=== PATIENT | female | born 1945 | race Caucasian/White ===

== ENCOUNTER 2022-10-30 05:32 | Outpatient (REF) | payer MEDICARE, MEDICAID, SELFPAY ==
[2022-10-30 10:02] LABS: Basophils Absolute Auto 0.1 10^3/uL (0.0-0.1); Basophils Percent Auto 0.5 % (0.2-2.0); Eosinophils Absolute Auto 0.3 10^3/uL (0.0-0.7); Eosinophils Percent Auto 2.7 % (0.9-7.0); Hematocrit 37.1 % (36.0-48.0); Hemoglobin 10.9 g/dL (12.0-16.0); Immature Granulocytes Abs Auto 0.08 10^3/uL (0.00-0.03); Immature Granulocytes Pct Auto 0.8 % (0.0-0.5); Lymphocytes Absolute Auto 1.8 10^3/uL (1.2-3.8); Lymphocytes Percent Auto 17.6 % (20.5-60.0); Mean Corpuscular HGB Conc 29.4 g/dL (29.9-35.2); Mean Corpuscular Hemoglobin 28.2 pg (26.7-34.0); Mean Corpuscular Volume 95.9 fL (81.0-99.0); Mean Platelet Volume 9.5 fL (9.5-13.5); Monocytes Absolute Auto 0.8 10^3/uL (0.3-0.8); Monocytes Percent Auto 7.9 % (1.7-12.0); Neutrophils Absolute Auto 7.1 10^3/uL (1.4-6.5); Neutrophils Percent Auto 70.5 % (43.0-75.0); Platelet Count 492 10^3/uL (150-450); Red Blood Count 3.87 10^6/uL (4.20-5.40); Red Cell Distribution Width 15.4 % (11.0-15.0)
[2022-10-30 10:41] LABS: Erythrocyte Sedimentation Rate 93 mm/hr (<=30)
[2022-10-30 22:29] LABS: C Reactive Protein 4.2 mg/dL (<=1.0); Creatine Kinase 59 U/L (26-192); Estimated GFR (African America 49 (>=60); Estimated GFR (Non-African Ame 40 (>=60)
== END 2022-10-30 05:33 | disposition home or self-care (01) ==
LOC: LAB 05:32
PROVIDERS: PCP Internal Medicine; Visit Provider Internal Medicine
DX: M86.9 Osteomyelitis, unspecified (principal)
CPT/HCPCS: 36415; 82550; 82565; 84520; 85025; 85652; 86140

== ENCOUNTER 2022-11-01 20:18 | Outpatient (REF) | payer MEDICARE, MEDICAID, SELFPAY ==
[2022-11-01 21:19] LABS: Basophils Absolute Auto 0.1 10^3/uL (0.0-0.1); Basophils Percent Auto 0.3 % (0.2-2.0); Eosinophils Absolute Auto 0.1 10^3/uL (0.0-0.7); Eosinophils Percent Auto 0.7 % (0.9-7.0); Hematocrit 34.2 % (36.0-48.0); Hemoglobin 10.5 g/dL (12.0-16.0); Immature Granulocytes Abs Auto 0.32 10^3/uL (0.00-0.03); Immature Granulocytes Pct Auto 1.6 % (0.0-0.5); Lymphocytes Absolute Auto 0.6 10^3/uL (1.2-3.8); Lymphocytes Percent Auto 3.2 % (20.5-60.0); Mean Corpuscular HGB Conc 30.7 g/dL (29.9-35.2); Mean Corpuscular Hemoglobin 28.1 pg (26.7-34.0); Mean Corpuscular Volume 91.4 fL (81.0-99.0); Mean Platelet Volume 9.6 fL (9.5-13.5); Monocytes Absolute Auto 1.2 10^3/uL (0.3-0.8); Monocytes Percent Auto 5.9 % (1.7-12.0); Neutrophils Absolute Auto 17.7 10^3/uL (1.4-6.5); Neutrophils Percent Auto 88.3 % (43.0-75.0); Platelet Count 513 10^3/uL (150-450); Red Blood Count 3.74 10^6/uL (4.20-5.40); Red Cell Distribution Width 15.3 % (11.0-15.0); White Blood Count 20.1 10^3/uL (4.0-11.0)
[2022-11-01 21:29] LABS: Alanine Aminotransferase 19 U/L (14-59); Albumin Globulin Ratio 0.5; Albumin Level 2.4 g/dL (3.4-5.0); Alkaline Phosphatase 171 U/L (46-116); Anion Gap 13.3; Aspartate Amino Transferase 14 U/L (15-37); BUN Creatinine Ratio 10.7; Bilirubin Total 0.3 mg/dL (0.2-1.0); Calcium 8.8 mg/dL (8.5-10.1); Carbon Dioxide 25.1 mmol/L (21.0-32.0); Chloride 96 mmol/L (98-107); Estimated GFR (African America 38 (>=60); Estimated GFR (Non-African Ame 31 (>=60); Globulin 4.6 g/dL; Glucose 109 mg/dL (74-106); Potassium 4.4 mmol/L (3.5-5.1); Sodium 130 mmol/L (136-145)
== END 2022-11-01 20:19 ==
LOC: LAB 20:18
PROVIDERS: PCP Internal Medicine; Visit Provider Internal Medicine
DX: R41.0 Disorientation, unspecified (principal); Z91.81 History of falling
CPT/HCPCS: 36415; 80053; 85025

== ENCOUNTER 2022-11-02 10:26 | Emergency (ER) | payer MEDICARE, MEDICAID, SELFPAY ==
[2022-11-02] VITALS (23 sets, daily range): BP systolic 87–123; BP diastolic 64–82; PULSE 91–130; RESP 18–34; TEMP 36.6; O2SAT 78–100; BMI 25.7
--- NOTE | 2022-11-02 10:04 | ED_ITS ---
HPI - Altered Mental Status General Chief Complaint: Altered Mental Status Stated Complaint: ALTERED MENTAL STATUS Time Seen by Provider: 11/02/22 10:28 History of Present Illness HPI narrative: Brought in via EMS from the [facility] for mental status changes. State the patient is weak and more lethargic than normal. Patient has a history of left hip arthroplasty complicated by multiple infections and wound dehiscence. She was recently on daptomycin and meropenem followed by another 7 weeks of daptomycin. Patient had the PICC line and antibiotics via IV discontinued last month. The patient has been on amoxicillin since. Patient fell yesterday has not had any fever. She did not hit her head did not have loss of consciousness. However she had outpatient blood work which showed her white count to be 20 so she was sent for evaluation. Patient has an appointment scheduled with or so this to have the wound VAC removed. Patient does not have any complaints and states that they're just being overreactive and that is what they sent her here she herself has not seen any ectopy in the emergency department. Patient does not have any focal complaints. She denies any fever, chills. She denies any upper respiratory infection symptoms. She denies any cough, chest, shortness of breath. Denies any abdominal pain. She denies any nausea, vomiting, diarrhea. Related Data Home Medications Medication Instructions Recorded Confirmed Lactobacillus acidoph-L.bulgaricus 1 tab PO TID 11/02/22 11/02/22 1 million cell chewable tablet acetaminophen 500 mg tablet 500 mg PO Q6H PRN pain 11/02/22 11/02/22 albuterol sulfate 90 mcg/actuation 2 inh inhalation Q6H PRN shortness 11/02/22 11/02/22 aerosol inhaler of breath or wheezing amoxicillin 500 mg tablet 500 mg PO Q12H 11/02/22 11/02/22 bisacodyl 10 mg rectal suppository 10 mg OR DAILY PRN constipation 11/02/22 11/02/22 bupropion HCl 150 mg tablet,12 hr 150 mg PO Q12H 11/02/22 11/02/22 sustained-release cholecalciferol (vitamin D3) 50 50 mcg PO DAILY 11/02/22 11/02/22 mcg (2,000 unit) capsule docusate sodium 100 mg capsule 100 mg PO BID 11/02/22 11/02/22 (Colace) enoxaparin 30 mg/0.3 mL 30 mg subcut Q24H 11/02/22 11/02/22 subcutaneous syringe famotidine 20 mg tablet 20 mg PO DAILY 11/02/22 11/02/22 fluticasone propionate 50 2 spray intranasal DAILY 11/02/22 11/02/22 mcg/actuation nasal spray,suspension folic acid 1 mg tablet 1 mg PO DAILY 11/02/22 11/02/22 furosemide 20 mg tablet 20 mg PO DAILY 11/02/22 11/02/22 levothyroxine 75 mcg tablet 75 mcg PO DAILY 11/02/22 11/02/22 multivitamin 1 tab PO DAILY 11/02/22 11/02/22 nystatin 100,000 unit/gram topical 1 applic topical BID 11/02/22 11/02/22 powder ondansetron HCl 4 mg tablet 4 mg PO Q6H PRN nausea and vomiting 11/02/22 11/02/22 oxycodone 5 mg tablet 5 mg PO BID PRN pain 11/02/22 11/02/22 polyethylene glycol 3350 17 17 g PO .every 48 hours 11/02/22 11/02/22 gram/dose oral powder (Miralax) polysaccharide iron complex 150 mg 150 mg PO .every other day 11/02/22 11/02/22 iron capsule (Ferrex) potassium chloride 20 mEq 20 meq PO DAILY 11/02/22 11/02/22 tablet,extended release(part/cryst) prednisone 5 mg tablet 5 mg PO .every 48 hours 11/02/22 11/02/22 sodium chloride 0.65 % nasal spray 1 spray intranasal DAILY PRN nasal 11/02/22 11/02/22 aerosol congestion sodium phosphates 19 gram-7 118 ml OR DAILY PRN constipation 11/02/22 11/02/22 gram/118 mL enema (Fleet Enema) umeclidinium 62.5 mcg-vilanterol 1 inh inhalation DAILY 11/02/22 11/02/22 25 mcg/actuation powdr for inhalation (Anoro Ellipta) Allergies Allergy/AdvReac Type Severity Reaction Status Date / Time No Known Drug Allergies Allergy Verified 11/02/22 10:02 Review of Systems ROS Status of ROS 10 or more systems reviewed and unremarkable except as noted in history and below [facility] Medical History (Updated 11/02/22 @ 15:31 by Mary Darnell MD) Surgical History (Updated 11/02/22 @ 10:29 by Nieves Trotter) Social History Smoking status: Former smoker Exam Narrative Exam Narrative: Nurses notes and vital signs reviewed and patient is not hypoxic. 2L nc General: Nontoxic, Elderly, frail, chronically ill and in no apparent distress. Skin: Warm, dry, no pallor noted. No Rash Head: Normocephalic, atraumatic. Neck: Supple, non-tender. Eye: Pupils are equal, round and EOMI. No scleral icterus. Ears, Nose, Mouth, and Throat: TM clear, no posterior oropharynx erythema or nasal mucosal hypertrophy, uvula is mid-line Oral mucosa is moist Cardiovascular: Regular Rate and Rhythm without murmur, gallop or rub. Respiratory: No accessory muscle use or respiratory distress. Lungs Bilateral occasional rhonchi Chest Wall: no tenderness Back: No midline thoracic or lumbar vertebral tenderness. No CVA tenderness Musculoskeletal: Left hip with wound VAC in place with yellow drainage, minimal focal erythema noted, no tenderness. no calf or popliteal tenderness, no lower extremity edema/swelling GI: Abdomen is soft, non-distended. Normal bowel sounds. No masses appreciated. No tenderness to palpation. No rebound, guarding, or rigidity noted. Neurological: A&O x4. No cranial nerve dysfunction observed. No truncal ataxia. Moves all extremities. Psychiatric: Cooperative and interactive. Constitutional Vital Signs - 24 hr 11/02/22 10:03 11/02/22 10:30 11/02/22 10:30 Temperature 98 F Pulse Rate Pulse Rate [Monitor] 98 H Respiratory Rate 24 Blood Pressure Blood Pressure [Left Arm] 105/65 Pulse Oximetry 95 Oxygen Delivery Method Nasal Cannula Nasal Cannula Nasal Cannula Oxygen Delivery Flow Rate 2 2 2 11/02/22 10:01 11/02/22 10:05 11/02/22 10:05 Temperature Pulse Rate 114 H 96 H Pulse Rate [Monitor] Respiratory Rate 24 24 Blood Pressure 105/65 Blood Pressure [Left Arm] Pulse Oximetry 95 96 Oxygen Delivery Method Oxygen Delivery Flow Rate 11/02/22 10:54 11/02/22 11:00 11/02/22 11:30 Temperature Pulse Rate 126 H 120 H 114 H Pulse Rate [Monitor] Respiratory Rate 25 H 25 H 27 H Blood Pressure 102/73 104/68 101/70 Blood Pressure [Left Arm] Pulse Oximetry 98 92 L Oxygen Delivery Method Oxygen Delivery Flow Rate 11/02/22 12:01 11/02/22 12:10 11/02/22 12:20 Temperature Pulse Rate 112 H 122 H 129 H Pulse Rate [Monitor] Respiratory Rate 25 H 26 H 24 Blood Pressure Blood Pressure [Left Arm] Pulse Oximetry 96 93 L 94 L Oxygen Delivery Method Oxygen Delivery Flow Rate 11/02/22 12:29 11/02/22 12:30 11/02/22 13:02 Temperature Pulse Rate 113 H 130 H 117 H Pulse Rate [Monitor] Respiratory Rate 26 H 26 H 18 Blood Pressure 109/66 Blood Pressure [Left Arm] Pulse Oximetry 95 Oxygen Delivery Method Oxygen Delivery Flow Rate 11/02/22 13:07 11/02/22 13:08 11/02/22 16:02 Temperature Pulse Rate 109 H 118 H Pulse Rate [Monitor] Respiratory Rate 26 H 26 H Blood Pressure 113/68 Blood Pressure [Left Arm] Pulse Oximetry 78 L 97 94 L Oxygen Delivery Method Room Air Oxygen Delivery Flow Rate 11/02/22 13:30 11/02/22 14:00 11/02/22 14:30 Temperature Pulse Rate 116 H 116 H 91 H Pulse Rate [Monitor] Respiratory Rate 24 34 H 22 Blood Pressure 108/65 90/72 123/71 H Blood Pressure [Left Arm] Pulse Oximetry 100 100 100 Oxygen Delivery Method Oxygen Delivery Flow Rate 11/02/22 15:00 11/02/22 15:30 11/02/22 16:00 Temperature Pulse Rate 115 H 119 H 105 H Pulse Rate [Monitor] Respiratory Rate 24 27 H 28 H Blood Pressure 87/64 L 113/73 118/78 Blood Pressure [Left Arm] Pulse Oximetry 100 95 94 L Oxygen Delivery Method Oxygen Delivery Flow Rate 11/02/22 16:00 11/02/22 16:00 11/02/22 16:30 Temperature Pulse Rate 116 H 111 H Pulse Rate [Monitor] Respiratory Rate 27 H 25 H Blood Pressure 118/78 99/69 Blood Pressure [Left Arm] Pulse Oximetry 89 L 97 99 Oxygen Delivery Method Nasal Cannula Oxygen Delivery Flow Rate 2 11/02/22 16:30 11/02/22 17:00 Temperature Pulse Rate 91 H 115 H Pulse Rate [Monitor] Respiratory Rate 28 H 24 Blood Pressure 99/69 103/82 H Blood Pressure [Left Arm] Pulse Oximetry 99 99 Oxygen Delivery Method Oxygen Delivery Flow Rate Course Vital Signs Vital signs: Vital Signs Pulse Oximetry 95 11/02/22 10:01 Temperature 98 F 11/02/22 10:03 Pulse Rate 115 H 11/02/22 17:00 Respiratory Rate 24 11/02/22 17:00 Blood Pressure 103/82 H 11/02/22 17:00 Pulse Oximetry 99 11/02/22 17:00 Oxygen Delivery Method Room Air 11/02/22 16:02 Oxygen Delivery Flow Rate 2 11/02/22 16:00 MDM - Altered Mental Status MDM Narrative Medical decision making narrative: Patient had an IV established, labs were ordered and the patient had a CT scan of her brain which is unremarkable, chest x-ray unremarkable, left hip CT scans showed a gluteal abscess, left hip osteomyelitis. The patient was started on vancomycin and Zosyn. Records from [facility] where reviewed. The patient was discussed with july who has accepted the patient to the service of Dr. brown. Differential Diagnosis Differential diagnosis: Likely altered mental status and sepsis Medical Records Attestation: I reviewed the patient's medical records. Lab Data Attestation: I reviewed the patient's lab results. Labs: Lab Results 11/02/22 11/02/22 Range/Units 10:33 13:10 WBC 23.0 H (4.0-11.0) 10^3/uL RBC 3.68 L (4.20-5.40) 10^6/uL Hgb 10.2 L (12.0-16.0) g/dL Hct 33.5 L (36.0-48.0) % MCV 91.0 (81.0-99.0) fL MCH 27.7 (26.7-34.0) pg MCHC 30.4 (29.9-35.2) g/dL RDW 15.4 H (11.0-15.0) % Plt Count 410 (150-450) 10^3/uL MPV 9.5 (9.5-13.5) fL Neut % (Auto) 91.9 H (43.0-75.0) % Lymph % (Auto) 1.4 L (20.5-60.0) % [place] % (Auto) 5.3 (1.7-12.0) % Eos % (Auto) 0.2 L (0.9-7.0) % Baso % (Auto) 0.3 (0.2-2.0) % Neut # (Auto) 21.1 H (1.4-6.5) 10^3/uL Lymph # (Auto) 0.3 L (1.2-3.8) 10^3/uL [place] # (Auto) 1.2 H (0.3-0.8) 10^3/uL Eos # (Auto) 0.0 (0.0-0.7) 10^3/uL Baso # (Auto) 0.1 (0.0-0.1) 10^3/uL Abs Immat Gran (auto) 0.21 H (0.00-0.03) 10^3/uL Imm/Tot Granulo (auto) 0.9 H (0.0-0.5) % Sodium 134 L (136-145) mmol/L Potassium 5.0 (3.5-5.1) mmol/L Chloride 100 (98-107) mmol/L Carbon Dioxide 22.9 (21.0-32.0) mmol/L Anion Gap 16.1 BUN 20.0 H (7.0-18.0) mg/dL Creatinine 1.64 H (0.55-1.02) mg/dL Est GFR ( Amer) 37 L (>=60) Est GFR (Non-Af Amer) 30 L (>=60) BUN/Creatinine Ratio 12.2 Glucose 92 (74-106) mg/dL Lactate 1.0 (0.4-2.0) mmol/L Calcium 8.6 (8.5-10.1) mg/dL Total Bilirubin 0.4 (0.2-1.0) mg/dL AST 15 (15-37) U/L ALT 17 (14-59) U/L Alkaline Phosphatase 168 H (46-116) U/L Troponin I High Sens 12.6 (4.0-51.3) pg/mL Total Protein 6.4 (6.4-8.2) g/dL Albumin 2.1 L (3.4-5.0) g/dL Globulin 4.3 g/dL Albumin/Globulin Ratio 0.5 TSH 2.036 (0.358-3.740) uIU/mL Urine Color Lt. yellow (YELLOW) Urine Clarity Clear (CLEAR) Urine pH 5.5 (5.0-9.0) Ur Specific [place] 1.020 (1.005-1.025) Urine Protein Negative (NEG/TRACE) mg/dL Urine Glucose (UA) Negative (NEGATIVE) mg/dL Urine Ketones Trace A (NEGATIVE) mg/dL Urine Occult Blood Negative (NEGATIVE) Urine Nitrite Negative (NEGATIVE) Urine Bilirubin Negative (NEGATIVE) Urine Urobilinogen 0.2 (0.2-1.0) EU/dL Ur Leukocyte Esterase Negative (NEGATIVE) ECG Data Attestation: I personally reviewed and interpreted this ECG as follows: Critical Care Time Critical Care Time Attestation: Critical Care Time: 35 minutes, critical care time is separate from any procedures that are performed. The following was considered in the determination of critical care but not limited to the level medical decision-making, intensive cardiac and/or respiratory monitor, frequent vital sign monitoring, evaluation of laboratory studies, evaluation of a radiographic studies, oxygen monitoring and constant monitoring. Discharge Plan Discharge Chief Complaint: Altered Mental Status Clinical Impression: Hip osteomyelitis, left, Abscess of hip, left Patient Disposition: [facility] Time of Disposition Decision: 15:29 Discharge Location: The [facility] Discharge location: Dr. Brown Condition: Good Mode of Transportation: EMS
--- NOTE | 2022-11-02 10:10 | CT_ITS ---
The [address] [address] Patient Name: CIELO SAHA MRN: [id number] date: 1945 Sex: F Assigned Patient Location: ER Current Patient Location: .[facility] Accession/Order Number: [id number] Exam Date: 11/02/2022 11:09 Report Date: 11/02/2022 11:34 At the request of: ANITHA MURILLO Procedure: CT head/brain wo con EXAMINATION: CT head/brain wo con HISTORY: fall, confusion - TECHNIQUE: CT head without contrast. All CT scans at this facility use dose modulation, iterative reconstruction, and/or weight based dosing when appropriate to reduce radiation dose to as low as reasonably achievable. COMPARISON: None. RESULT: Post-operative change: None. Acute change: No evidence of an acute intracranial process. Hemorrhage: No evidence of acute intracranial hemorrhage. Mass Lesion / Mass Effect: No evidence of an intracranial mass or extraaxial fluid collection. No significant mass effect. Chronic change: Patchy foci of low attenuation coefficient are present within the supratentorial white matter which is a nonspecific finding but likely represents moderate microvascular ischemia. Atherosclerotic calcification of the carotid siphons and vertebrobasilar arteries. Parenchyma: Moderate generalized volume loss. Ventricles: Normal caliber and morphology. Other: The calvarium, skull base, imaged paranasal sinuses, mastoids, and extracranial soft tissues are unremarkable. Bilateral lens replacements. Widened partially empty sella. IMPRESSION: 1. No acute intracranial abnormality; no acute infarct, intracranial hemorrhage or extra-axial collection. 2. Chronic microvascular ischemia and involutional changes. Electronically authenticated by: DALTON COOPER Date: 11/02/2022 11:34
--- NOTE | 2022-11-02 10:10 | ECG_ITS ---
The [facility] Test Date: 2022-11-02 Pat Name: Jessica Gonzalez Department: Room: - Gender: Female Applications Programmer: : 1945 Requested By: STUART ZAMORA Order Number: [id number] Reading MD: JACOB VAIL Measurements Intervals [place] Rate: 97 P: 13 HI: 176 QRS: 53 QRSD: 80 T: 3 QT: 336 QTc: 391 Interpretive Statements 1100 Sinus rhythm 1470 with occasional supraventricular premature complexes Non-Specific T wave inversion in III 9140 abnormal rhythm ECG No previous ECG available for comparison Electronically Signed On 11-04-2022 6:21:02 EDT by JACOB VAIL
--- NOTE | 2022-11-02 10:10 | XR_ITS ---
The [address] [address] Patient Name: CIELO SAHA MRN: [id number] date: 1945 Sex: F Assigned Patient Location: ER Current Patient Location: ER Accession/Order Number: [id number] Exam Date: 11/02/2022 11:09 Report Date: 11/02/2022 11:43 At the request of: ANITHA MURILLO Procedure: XR chest 1V EXAM: XR chest 1V HISTORY: weakness COMPARISON: 09/04/2021 TECHNIQUE: Chest X-ray, 1 view. FINDINGS: Support devices: None. Lungs/pleura: No consolidation, effusion, or pneumothorax. Chronic appearing lung markings are unchanged. Emphysema. Heart and mediastinum: Stable contours compared to prior examination. Bones: No acute abnormality identified. Significant degenerative changes about the shoulders. Left glenoid fixation hardware. IMPRESSION: No active disease. Mild prominence of lung markings is favored represent chronic change in patient with emphysema. Electronically authenticated by: YAMILE RAMOS Date: 11/02/2022 11:43
--- NOTE | 2022-11-02 10:26 | CT_ITS ---
The [place] [id number] Patient Name: CIELO SAHA MRN: [id number] date: 1945 Sex: F Assigned Patient Location: ER Current Patient Location: ER Accession/Order Number: [id number] Exam Date: 11/02/2022 11:09 Report Date: 11/02/2022 14:11 At the request of: ANITHA MURILLO Procedure: CT hip LT wo con EXAM: CT hip LT wo con COMPARISON: 06/06/2021. CLINICAL INDICATION: infection, sp arthroiplasty, leukocytosis TECHNIQUE: Multiplanar CT images of the left hip without contrast. Dose reduction techniques were achieved by using automated exposure control and/or adjustment of mA and/or kV according to patient size and/or use of iterative reconstruction technique. FINDINGS: Status post interval removal of the left hip arthroplasty hardware seen on prior from 06/06/2021 presumably due to infected hardware. Postsurgical change of the left proximal femur with postsurgical resection of the left femoral head. Prominent deep lateral hip soft tissue ulcer. Large gas and fluid containing ill-defined subcutaneous and intramuscular abscess in the left gluteal-hip soft tissues communicating with a large left hip joint effusion in a patient with severe septic arthritis, and with communication between the skin surface and the left hip joint. Acute osteomyelitis of the left acetabulum and adjacent left iliac bone and acute osteomyelitis of the left proximal femur with bony destructive change and prominent aggressive infectious related periosteal reaction. IMPRESSION: As above. Electronically authenticated by: PETE FLORES Date: 11/02/2022 14:11
--- NOTE | 2022-11-02 10:48 | PC.NURSE ---
10cc to [employer] systems laboratory director for 2nd blood culture
[2022-11-02] MEDS: 0.9 % SODIUM CHLORIDE 1,000 ML 100 ML IV (10:54)
[2022-11-02 11:24] LABS: Basophils Absolute Auto 0.1 10^3/uL (0.0-0.1); Basophils Percent Auto 0.3 % (0.2-2.0); Eosinophils Percent Auto 0.2 % (0.9-7.0); Hematocrit 33.5 % (36.0-48.0); Hemoglobin 10.2 g/dL (12.0-16.0); Immature Granulocytes Abs Auto 0.21 10^3/uL (0.00-0.03); Immature Granulocytes Pct Auto 0.9 % (0.0-0.5); Lymphocytes Absolute Auto 0.3 10^3/uL (1.2-3.8); Lymphocytes Percent Auto 1.4 % (20.5-60.0); Mean Corpuscular HGB Conc 30.4 g/dL (29.9-35.2); Mean Corpuscular Hemoglobin 27.7 pg (26.7-34.0); Mean Platelet Volume 9.5 fL (9.5-13.5); Monocytes Absolute Auto 1.2 10^3/uL (0.3-0.8); Monocytes Percent Auto 5.3 % (1.7-12.0); Neutrophils Absolute Auto 21.1 10^3/uL (1.4-6.5); Neutrophils Percent Auto 91.9 % (43.0-75.0); Platelet Count 410 10^3/uL (150-450); Red Blood Count 3.68 10^6/uL (4.20-5.40); Red Cell Distribution Width 15.4 % (11.0-15.0)
[2022-11-02 11:41] LABS: Alanine Aminotransferase 17 U/L (14-59); Albumin Globulin Ratio 0.5; Albumin Level 2.1 g/dL (3.4-5.0); Alkaline Phosphatase 168 U/L (46-116); Anion Gap 16.1; Aspartate Amino Transferase 15 U/L (15-37); BUN Creatinine Ratio 12.2; Bilirubin Total 0.4 mg/dL (0.2-1.0); Calcium 8.6 mg/dL (8.5-10.1); Carbon Dioxide 22.9 mmol/L (21.0-32.0); Chloride 100 mmol/L (98-107); Estimated GFR (African America 37 (>=60); Estimated GFR (Non-African Ame 30 (>=60); Globulin 4.3 g/dL; Glucose 92 mg/dL (74-106); Sodium 134 mmol/L (136-145); Thyroid Stimulating Hormone 2.036 uIU/mL (0.358-3.740); Total Protein 6.4 g/dL (6.4-8.2)
[2022-11-02 11:58] LABS: Troponin I High Sensitivity 12.6 pg/mL (4.0-51.3)
--- NOTE | 2022-11-02 13:19 | PC.NURSE ---
1255 Up to BSC with much assistance after labia cleaned per this nurse. Much assistance is needed. Water ran to help her void.
--- NOTE | 2022-11-02 13:20 | PC.NURSE ---
1310 Dark color urine is in hat and sent to lab. Max assistance to get her back in bed. FOB elevated and pillow under left heel area.
[2022-11-02 13:24] LABS: Bilirubin Urine NEGATIVE (NEGATIVE); Blood Urine NEGATIVE (NEGATIVE); Clarity Urine CLEAR (CLEAR); Color Urine LT. YELLOW (YELLOW); Glucose Urine UA NEGATIVE (NEGATIVE); Ketones Urine TRACE mg/dL (NEGATIVE); Leukocyte Esterase Urine NEGATIVE (NEGATIVE); Nitrite Urine NEGATIVE (NEGATIVE); Protein Urine NEGATIVE (NEG/TRACE); Urobilinogen Urine 0.2 EU/dL (0.2-1.0); pH Urine 5.5 (5.0-9.0)
[2022-11-02] MEDS: PIPERACILLIN SODIUM/TAZOBACTAM 4.5 GM in 0.9 % SODIUM CHLORIDE 50 ML IV (15:23)
[2022-11-02] MEDS: VANCOMYCIN HCL 1,500 MG in 0.9 % SODIUM CHLORIDE 500 ML 250 MG IV (15:58)
--- NOTE | 2022-11-02 16:00 | PC.NURSE ---
Her brother Juan Francisco is not in waiting room. He is called no answer or VM. She request for me to call Madyson and update her of plan to transfer. She is too upset and crying to talk to her she is holding her blanket up to her face and o2 is off. Sensor is on her toe and reading higher than finger.
--- NOTE | 2022-11-02 16:03 | PC.NURSE ---
upset and crying
--- NOTE | 2022-11-02 16:04 | PC.NURSE ---
saline is put on hold to run vancomycin
== END 2022-11-02 18:58 | disposition short-term general hospital (02) ==
PROVIDERS: Emergency Provider Emergency Medicine; PCP Internal Medicine
DX: M86.9 Osteomyelitis, unspecified (principal); L02.416 Cutaneous abscess of left lower limb; Z96.642 Presence of left artificial hip joint; Z79.899 Other long term (current) drug therapy; Z79.890 Hormone replacement therapy; Z87.891 Personal history of nicotine dependence
CPT/HCPCS: 36415; 70450; 71045; 73700; 80053; 81003; 83605; 84443; 84484; 85025; 87040; 93005; 96374; 96375; 99285; J3370

== ENCOUNTER 2022-11-13 10:38 | Outpatient (REF) | payer MEDICARE, MEDICAID, SELFPAY ==
[2022-11-13 11:42] LABS: Basophils Absolute Auto 0.1 10^3/uL (0.0-0.1); Basophils Percent Auto 0.6 % (0.2-2.0); Eosinophils Absolute Auto 0.5 10^3/uL (0.0-0.7); Eosinophils Percent Auto 4.4 % (0.9-7.0); Hematocrit 29.2 % (36.0-48.0); Hemoglobin 9.1 g/dL (12.0-16.0); Immature Granulocytes Abs Auto 0.42 10^3/uL (0.00-0.03); Immature Granulocytes Pct Auto 4.1 % (0.0-0.5); Lymphocytes Absolute Auto 2.1 10^3/uL (1.2-3.8); Lymphocytes Percent Auto 20.8 % (20.5-60.0); Mean Corpuscular HGB Conc 31.2 g/dL (29.9-35.2); Mean Corpuscular Hemoglobin 28.5 pg (26.7-34.0); Mean Corpuscular Volume 91.5 fL (81.0-99.0); Mean Platelet Volume 9.4 fL (9.5-13.5); Monocytes Absolute Auto 0.7 10^3/uL (0.3-0.8); Monocytes Percent Auto 6.6 % (1.7-12.0); Neutrophils Absolute Auto 6.5 10^3/uL (1.4-6.5); Neutrophils Percent Auto 63.5 % (43.0-75.0); Platelet Count 638 10^3/uL (150-450); Red Blood Count 3.19 10^6/uL (4.20-5.40); Red Cell Distribution Width 16.7 % (11.0-15.0); White Blood Count 10.2 10^3/uL (4.0-11.0)
[2022-11-13 11:54] LABS: Erythrocyte Sedimentation Rate 38 mm/hr (<=30)
[2022-11-13 12:12] LABS: Anion Gap 12.2; BUN Creatinine Ratio 11.5; C Reactive Protein 0.5 mg/dL (<=1.0); Calcium 8.2 mg/dL (8.5-10.1); Carbon Dioxide 26.6 mmol/L (21.0-32.0); Chloride 104 mmol/L (98-107); Creatine Kinase 22 U/L (26-192); Estimated GFR (African America 48 (>=60); Estimated GFR (Non-African Ame 39 (>=60); Glucose 104 mg/dL (74-106); Magnesium 1.9 mg/dL (1.8-2.4); Potassium 4.8 mmol/L (3.5-5.1); Sodium 138 mmol/L (136-145)
== END 2022-11-13 10:39 ==
LOC: LAB 10:38
PROVIDERS: PCP Internal Medicine; Visit Provider Internal Medicine
DX: M86.9 Osteomyelitis, unspecified (principal)
CPT/HCPCS: 36415; 80048; 82550; 83735; 85025; 85652; 86140

== ENCOUNTER 2022-11-20 02:21 | Outpatient (REF) | payer MEDICARE, MEDICAID, SELFPAY ==
[2022-11-20 08:00] LABS: C Reactive Protein <0.2 mg/dL (<=1.0); Creatine Kinase 23 U/L (26-192); Estimated GFR (African America 52 (>=60); Estimated GFR (Non-African Ame 43 (>=60)
[2022-11-20 08:17] LABS: Basophils Absolute Auto 0.1 10^3/uL (0.0-0.1); Basophils Percent Auto 0.9 % (0.2-2.0); Eosinophils Absolute Auto 0.1 10^3/uL (0.0-0.7); Eosinophils Percent Auto 0.7 % (0.9-7.0); Hematocrit 28.8 % (36.0-48.0); Hemoglobin 8.6 g/dL (12.0-16.0); Immature Granulocytes Abs Auto 0.05 10^3/uL (0.00-0.03); Immature Granulocytes Pct Auto 0.6 % (0.0-0.5); Lymphocytes Absolute Auto 1.2 10^3/uL (1.2-3.8); Lymphocytes Percent Auto 13.5 % (20.5-60.0); Mean Corpuscular HGB Conc 29.9 g/dL (29.9-35.2); Mean Corpuscular Hemoglobin 28.2 pg (26.7-34.0); Mean Corpuscular Volume 94.4 fL (81.0-99.0); Mean Platelet Volume 9.1 fL (9.5-13.5); Monocytes Absolute Auto 0.4 10^3/uL (0.3-0.8); Monocytes Percent Auto 4.8 % (1.7-12.0); Neutrophils Percent Auto 79.5 % (43.0-75.0); Platelet Count 506 10^3/uL (150-450); Red Blood Count 3.05 10^6/uL (4.20-5.40); Red Cell Distribution Width 17.7 % (11.0-15.0); White Blood Count 8.8 10^3/uL (4.0-11.0)
== END 2022-11-20 02:22 | disposition home or self-care (01) ==
LOC: LAB 02:21
PROVIDERS: PCP Internal Medicine; Visit Provider Internal Medicine
DX: M62.81 Muscle weakness (generalized) (principal)
CPT/HCPCS: 36415; 82550; 82565; 84520; 85025; 86140

== ENCOUNTER 2022-11-27 01:49 | Outpatient (REF) | payer MEDICARE, MEDICAID, SELFPAY ==
[2022-11-27 08:22] LABS: Erythrocyte Sedimentation Rate 59 mm/hr (<=30)
[2022-11-27 09:36] LABS: C Reactive Protein 1.1 mg/dL (<=1.0)
== END 2022-11-27 01:50 | disposition home or self-care (01) ==
LOC: LAB 01:49
PROVIDERS: PCP Internal Medicine; Visit Provider Internal Medicine
DX: M86.9 Osteomyelitis, unspecified (principal)
CPT/HCPCS: 36415; 85652; 86140

== ENCOUNTER 2022-12-04 01:39 | Outpatient (REF) | payer MEDICARE, MEDICAID, SELFPAY ==
[2022-12-04 09:14] LABS: Erythrocyte Sedimentation Rate 77 mm/hr (<=30)
[2022-12-04 10:02] LABS: C Reactive Protein 1.6 mg/dL (<=1.0)
== END 2022-12-04 01:40 | disposition home or self-care (01) ==
LOC: LAB 01:39
PROVIDERS: PCP Internal Medicine; Visit Provider Internal Medicine
DX: M86.9 Osteomyelitis, unspecified (principal)
CPT/HCPCS: 36415; 85652; 86140

== ENCOUNTER 2022-12-11 01:43 | Outpatient (REF) | payer MEDICARE, MEDICAID, SELFPAY ==
[2022-12-11 08:19] LABS: Erythrocyte Sedimentation Rate 74 mm/hr (<=30)
[2022-12-11 09:54] LABS: C Reactive Protein 1.2 mg/dL (<=1.0)
== END 2022-12-11 01:44 | disposition home or self-care (01) ==
LOC: LAB 01:43
PROVIDERS: PCP Internal Medicine; Visit Provider Internal Medicine
DX: M86.9 Osteomyelitis, unspecified (principal)
CPT/HCPCS: 36415; 85652; 86140

== ENCOUNTER 2022-12-20 02:10 | Outpatient (REF) | payer MEDICARE, MEDICAID, SELFPAY ==
[2022-12-20 08:06] LABS: Erythrocyte Sedimentation Rate 72 mm/hr (<=30)
[2022-12-20 08:24] LABS: C Reactive Protein 0.6 mg/dL (<=1.0)
== END 2022-12-20 02:11 | disposition home or self-care (01) ==
LOC: LAB 02:10
PROVIDERS: PCP Internal Medicine; Visit Provider Internal Medicine
DX: M86.9 Osteomyelitis, unspecified (principal)
CPT/HCPCS: 36415; 85652; 86140

== ENCOUNTER 2023-02-14 01:29 | Outpatient (REF) | payer MEDICARE, MEDICAID, SELFPAY ==
[2023-02-14 09:29] LABS: Erythrocyte Sedimentation Rate 43 mm/hr (<=30)
[2023-02-14 09:33] LABS: C Reactive Protein <0.2 mg/dL (<=1.0)
== END 2023-02-14 01:30 | disposition home or self-care (01) ==
LOC: LAB 01:29
PROVIDERS: PCP Internal Medicine; Visit Provider Internal Medicine
DX: M86.9 Osteomyelitis, unspecified (principal)
CPT/HCPCS: 36415; 85652; 86140

== ENCOUNTER 2023-03-26 03:48 | Outpatient (REF) | payer MEDICARE, MEDICAID, SELFPAY ==
[2023-03-26 08:00] LABS: Erythrocyte Sedimentation Rate 7 mm/hr (<=30)
[2023-03-26 08:32] LABS: C Reactive Protein <0.2 mg/dL (<=1.0)
== END 2023-03-26 03:49 | disposition home or self-care (01) ==
LOC: LAB 03:48
PROVIDERS: PCP Internal Medicine; Visit Provider Internal Medicine
DX: M86.9 Osteomyelitis, unspecified (principal)
CPT/HCPCS: 36415; 85652; 86140

== ENCOUNTER 2023-03-28 10:21 | Outpatient (REF) | payer MEDICARE, MEDICAID, SELFPAY ==
[2023-03-28 12:33] LABS: Basophils Percent Auto 0.6 % (0.2-2.0); Eosinophils Absolute Auto 0.3 10^3/uL (0.0-0.7); Eosinophils Percent Auto 4.8 % (0.9-7.0); Hematocrit 32.9 % (36.0-48.0); Immature Granulocytes Abs Auto 0.02 10^3/uL (0.00-0.03); Immature Granulocytes Pct Auto 0.3 % (0.0-0.5); Lymphocytes Absolute Auto 1.6 10^3/uL (1.2-3.8); Lymphocytes Percent Auto 24.1 % (20.5-60.0); Mean Corpuscular HGB Conc 30.4 g/dL (29.9-35.2); Mean Corpuscular Hemoglobin 29.5 pg (26.7-34.0); Mean Corpuscular Volume 97.1 fL (81.0-99.0); Mean Platelet Volume 9.4 fL (9.5-13.5); Monocytes Absolute Auto 0.6 10^3/uL (0.3-0.8); Neutrophils Absolute Auto 3.9 10^3/uL (1.4-6.5); Neutrophils Percent Auto 60.2 % (43.0-75.0); Platelet Count 306 10^3/uL (150-450); Red Blood Count 3.39 10^6/uL (4.20-5.40); Red Cell Distribution Width 15.9 % (11.0-15.0); White Blood Count 6.4 10^3/uL (4.0-11.0)
[2023-03-28 12:38] LABS: Erythrocyte Sedimentation Rate 33 mm/hr (<=30)
[2023-03-28 12:52] LABS: Alanine Aminotransferase 21 U/L (14-59); Albumin Globulin Ratio 0.8; Albumin Level 2.6 g/dL (3.4-5.0); Alkaline Phosphatase 157 U/L (46-116); Aspartate Amino Transferase 21 U/L (15-37); Bilirubin Direct <0.1 mg/dL (0.0-0.2); Bilirubin Total 0.2 mg/dL (0.2-1.0); Estimated GFR (African America 43 (>=60); Estimated GFR (Non-African Ame 35 (>=60); Globulin 3.2 g/dL; Total Protein 5.8 g/dL (6.4-8.2)
== END 2023-03-28 10:22 | disposition home or self-care (01) ==
LOC: LAB 10:21
PROVIDERS: PCP Internal Medicine; Visit Provider Family Medicine
DX: Z51.81 Encounter for therapeutic drug level monitoring (principal)
CPT/HCPCS: 36415; 80076; 82565; 85025; 85652; 99999

== ENCOUNTER 2023-04-02 04:15 | Outpatient (REF) | payer MEDICARE, MEDICAID, SELFPAY | END 2023-04-02 04:16 | disposition home or self-care (01) | LOC: LAB 04:15 | PROVIDERS: PCP Internal Medicine; Visit Provider Internal Medicine | DX: Z51.81 Encounter for therapeutic drug level monitoring (principal); Z79.899 Other long term (current) drug therapy | CPT/HCPCS: 36415; 80204; 99999 ==

== ENCOUNTER 2023-05-23 12:19 | Emergency (ER) | payer MEDICARE, MEDICAID, SELFPAY ==
[2023-05-23 12:22] VITALS: BP 129/62; PULSE 82; RESP 18; TEMP 36.5; O2SAT 96; BMI 26.1
--- OUTSIDE RECORDS SUMMARY | 2023-05-23 12:31 | XMS_ITS | CCD ---
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 Name Role Phone Amir, Hasan Unavailable Unavailable STUART ZAMORA~[id number] UNKNOWN Unavailable Unavailable Amir, Hasan Unavailable Unavailable LABBAD, JAKLEEN Unavailable Unavailable Amir, Hasan Unavailable Unavailable Amir, Hasan Unavailable Unavailable Amir, Hasan Unavailable Unavailable Amir, Hasan Unavailable Unavailable Amir, Hasan Unavailable Unavailable Amir, Hasan Unavailable Unavailable Amir, Hasan Unavailable Unavailable Amir, Hasan Unavailable Unavailable Shine, Ryan Unavailable Unavailable Shine, Ryan Unavailable Unavailable Shine, Ryan Unavailable Unavailable Shine, Ryan Unavailable Unavailable Shine, Ryan Unavailable Unavailable Shine, Ryan Unavailable Unavailable Shine, Ryan Unavailable Unavailable Shine, Ryan Unavailable Unavailable Shine, Ryan Unavailable Unavailable Shine, Ryan Unavailable Unavailable Shine, Ryan Unavailable Unavailable Shine, Ryan Unavailable Unavailable Shine, Ryan Unavailable Unavailable STUART ZAMORA~[id number] UNKNOWN Unavailable Unavailable Lakeisha, Justine Unavailable Unavailable Lakeisha, Justine Unavailable Unavailable Lakeisha, Justine Unavailable Unavailable Lakeisha, Justine Unavailable Unavailable Lakeisha, Justine Unavailable Unavailable Lakeisha, Justine Unavailable Unavailable Lakeisha, Justine Unavailable Unavailable Lakeisha, Justine Unavailable Unavailable Lakeisha, Justine Unavailable Unavailable Lakeisha, Justine Unavailable Unavailable STUART ZAMORA~[id number] UNKNOWN Unavailable Unavailable Marion, Keerthi Unavailable Unavailable Marion, Keerthi Unavailable Unavailable Said, Farid Unavailable Unavailable Said, Farid Unavailable Unavailable STUATR ZAMORA~[id number] UNKNOWN Unavailable Unavailable Said, Farid Unavailable Unavailable Said, Farid Unavailable Unavailable STUART ZAMORA~[id number] UNKNOWN Unavailable Unavailable CHAMPAGNE, LENIN YASHIRA Unavailable Unavailab le Ball DO, Stuart E Primary Care Provider Ball DO, Stuart E Primary Care Provider BALL, STUART E Primary Care Unavailable BECCA CULVER Attending UnavailCHRIST Pulliam Admitting Unavailable WELLS, DL JACOB Referring Unavailable MARY GARCIA Consulting Unavailable [facility] Consulting JOSE Cisneros Consulting Unavailabl e WELLS, DL JACOB Attending Unavailable BALL, STUART E Referring Unavailable BALL, STUART E Primary Care Unavailable WELLS, LD JACOB Attending Unavailable BALL, STUART E Primary Care Unavailable WELLS, DL LANDLAS Attending Unavailable BALL, STUART E Primary Care Unavailable WELLS, DL JACOB Attending Unavailable BALL, STUART E Primary Care Unavailable WELLS, DL JACOB Attending Unavailable BALL, STUART E Primary Care Unavailable WELLS, DL JACOB Attending Unavailable BALL, STUART E Primary Care Unavailable WELLS, DL JAMES Attending Unavailable BALL, STUART E Primary Care Unavailable WELLS, DL JACOB Attending Unavailable BALL, STUART E Primary Care Unavailable Marion Brantley Unavailable Lotus Maloney Unavailable WILLIAM JULIAN Admitting Unavailable WILLIAM JULIAN Attending Unavailable BALL, STUART Referring Unavailable BALL, STUART Primary Care Unavailable BALL, STUART Referring Unavailable BALL, STUART Primary Care Unavailable UNKNOWN, PROVIDER Attending Unavailable UNKNOWN, PROVIDER Admitting Unavailable Kevin Varela Admitting Unavailable Kevin Varela Attending Unavailable BALL, STUART Referring Unavailable BALL, STUART Primary Care Unavailable BALL, STUART Primary Care Unavailable UNKNOWN, PROVIDER Referring Unavailable Kevin Varela Attending Unavailable Kevin Varela Admitting Unavailable [place] Admitting Unavailable [place] Attending Unavailable BALL, STUART Referring Unavailable BALL, STUART Primary Care Unavailable [place] Admitting Unavailable [place] Attending Unavailable BALL, STUART Referring Unavailable BALL, STUART Primary Care Unavailable BALL, STUART Primary Care Unavailable UNKNOWN, PROVIDER Referring Unavailable UNKNOWN, PROVIDER Admitting Unavailable Kana Brown Attending Unavailable Kevin Varela Admitting Unavailable Kevin Varela Attending Unavailable UNKNOWN, PROVIDER Referring Unavailable BALL, STUART Primary Care Unavailable WILLIAM JULIAN Admitting Unavailable WILLIAM JULIAN Attending Unavailable WILLIAM JULIAN Referring Unavailable BALL, STUART Primary Care Unavailable WILLIAM JULIAN Admitting Unavailable WILLIAM JULIAN Attending Unavailable BALL, STUART Referring Unavailable BALL, STUART Primary Care Unavailable Ball, Stuart Unavailable Sera, DO Davidosn Primary Care Provider MD Mekhi Boyer Attending Provider SERA, DR DAVIDSON Admitting Unavailable BALL, DR DAVIDSON Primary Care Unavailable BALL, DR DAVIDSON Attending Unavailable BALL, DR DAVIDSON Consulting Unavailable BALL, DR DAVIDSON Consulting Unavailable BALL, DR DAVIDSON Primary Care Unavailable BALL, DR DAVIDSON Admitting Unavailable BALL, DR DAVIDSON Attending Unavailable BALL, DR DAVIDSON Consulting Unavailable BALL, DR DAVIDSON Attending Unavailable BALL, DR DAVIDSON Primary Care Unavailable BALL, DR DAVIDSON Admitting Unavailable BALL, DR DAVIDSON Attending Unavailable BALL, DR DAVIDSON Admitting Unavailable BALL, DR DAVIDSON Primary Care Unavailable BALL, DR DAVIDSON Attending Unavailable BALL, DR DAVIDSON Admitting Unavailable BALL, DR DAVIDSON Consulting Unavailable BALL, DR DAVIDSON Primary Care Unavailable BALL, DR DAVIDSON Primary Care Unavailable BALL, DR DAVIDSON Admitting Unavailable BALL, DR DAVIDSON Attending Unavailable BALL, DR DAVIDSON Consulting Unavailable BALL, DR DAVIDSON Consulting Unavailable BALL, DR DAVIDSON Primary Care Unavailable BALL, DR DAVIDSON Admitting Unavailable BALL, DR DAVIDSON Attending Unavailable BALL, DR DAVIDSON Attending Unavailable BALL, DR DAVIDSON Admitting Unavailable BALL, DR DAVIDSON Consulting Unavailable BALL, DR DAVIDSON Primary Care Unavailable BALL, DR DAVIDSON Primary Care Unavailable BALL, DR DAVIDSON Attending Unavailable BALL, DR DAVIDSON Admitting Unavailable BALL, DR DAVIDSON Consulting Unavailable MISC, DR SHARP Admitting Unavailable MISC, DR SHARP Attending Unavailable MISC, DR SHARP Consulting Unavailable BALL, DR DAVIDSON Primary Care Unavailable BALL, DR DAVIDSON Consulting Unavailable BALL, DR DAVIDSON Attending Unavailable BALL, DR DAVIDSON Admitting Unavailable BALL, DR DAVIDSON Primary Care Unavailable BALL, DR DAVIDSON Consulting Unavailable BALL, DR DAVIDSON Attending Unavailable BALL, DR DAVIDSON Admitting Unavailable BALL, DR DAVIDSON Primary Care Unavailable BALL, DR DAVIDSON Admitting Unavailable BALL, DR DAVIDSON Primary Care Unavailable BALL, DR DAVIDSON Attending Unavailable BALL, DR DAVIDSON Consulting Unavailable BALL, DR DAVIDSON Admitting Unavailable BALL, DR DAVIDSON Primary Care Unavailable BALL, DR DAVIDSON Attending Unavailable BALL, DR DAVIDSON Consulting Unavailable BALL, DR DAVIDSON Admitting Unavailable BALL, DR DAVIDSON Primary Care Unavailable BALL, DR DAVIDSON Attending Unavailable BALL, DR DAVIDSON Consulting Unavailable BALL, DR DAVIDSON Admitting Unavailable BALL, DR DAVIDSON Primary Care Unavailable BALL, DR DAVIDSON Attending Unavailable BALL, DR DAVIDSON Consulting Unavailable BALL, DR DAVIDSON Primary Care Unavailable BALL, DR DAVIDSON Attending Unavailable BALL, DR DAVIDSON Admitting Unavailable BALL, DR DAVIDSON Consulting Unavailable BALL, DR DAVIDSON Consulting Unavailable BALL, DR DAVIDSON Attending Unavailable BALL, DR DAVIDSON Admitting Unavailable BALL, DR DAVIDSON Primary Care Unavailable BALL, DR DAVIDSON Primary Care Unavailable BALL, DR DAVIDSON Primary Care Unavailable BALL, DR DAVIDSON Attending Unavailable BALL, DR DAVIDSON Admitting Unavailable BALL, DR DAVIDSON Consulting Unavailable BALL, DR DAVIDSON Consulting Unavailable BALL, DR DAVIDSON Attending Unavailable BALL, DR DAVIDSON Admitting Unavailable BALL, DR DAVIDSON Primary Care Unavailable Sera, Stuart Primary Care Unavailable Haladay, Mekhi Admitting Unavailable Haladay, Mekhi Attending Unavailable Ball, Stuart Primary Care Unavailable Haladay, Mekhi Admitting Unavailable Haladay, Mekhi Attending Unavailable Ball, Stuart Primary Care Unavailable Haladay, Mekhi Admitting Unavailable Haladay, Mekhi Attending Unavailable ANDRE COLON Attending Unavailable IVAN NDIAYE Referring Unavailab KEVIN Fournier Referring Unavailable LY, DEVENDRA Admitting Unavailable RADHA MCINTOSH Attending Unavailable TAMMY DOSHI Attending Unavailable XAVIER HDEZ Attending Unavailable ANDRE COLON Attending Unavailable KEVIN VARELA Admitting Unavailable KEVIN VARELA Attending Unavailable WILLIAM JULIAN Attending Unavailable ANDRE COLON Attending Unavailable ANDRE COLON Attending Unavailable TAMMY DOSHI Referring Unavailable KEVIN VARELA Referring Unavailable TICO, TAMMY Referring Unavailable DAVON COE Attending Unavailable TICOTAMMY Attending Unavailable ELSXAVIER SCRUGGS Attending Unavailable TICO, TAMMY Referring Unavailable TICO, TAMMY Referring Unavailable NARDA BURNETTE Referring UnavailKEVIN Chopra Referring Unavailable TICO, TAMMY Referring Unavailable KEVIN VARELA Admitting Unavailable LYDVEENDRA CARDONA Attending Unavailable TICO, TAMMY Referring Unavailable ALITOÑO Attending Unavailable ALI LUNDBERG Admitting Unavailable Medications Current Medications Medication Drug Class(es) Dates Sig (Normalized) Sig (Original) Albuterol Sulfate 108 (90 Base) MCG/ACT (20 sources) take 1 puff(s) by inhalation every four hours as needed Albuterol Sulfate 108 (90 Base) MCG/ACT 1 puff as needed Inhalation every 4 hrs Active amoxicillin 500 mg / clavulanate 125 mg oral tablet (17 sources) Penicillin-class Antibacterial End: 12-20-2022 take 1 tablet by mouth every twelve hours Amoxicillin-Pot Clavulanate 500-125 MG 1 tablet Orally every 12 hrs Active apixaban 2.5 mg oral tablet (11 sources) Factor Xa Inhibitor Eliquis 2.5 MG as directed Orally Active atorvastatin 20 mg oral tablet (11 sources) HMG-CoA Reductase Inhibitor Start: 11-10-2020 End: 11-09-2021 take 1 tablet by mouth once daily atorvastatin (LIPITOR) 20 MG tablet Take 1 (one) tablet (20 mg total) by mouth nightly . 90 tablet 3 11/14/2020 11/09/2021 Active bacitracin 0.5 unt/mg / polymyxin b 10 unt/mg topical ointment (12 sources) Polymyxin-class Antibacterial Start: 11-27-2020 Start: 11-23-2020 End: 11-29-2020 bacitracin zinc-polymyxin B ointment Apply 1 application topically 2 (two) times a day . 1 Tube 0 11/27/2020 Active Budesonide / formoterol (11 sources) Corticosteroid, beta2-Adrenergic Agonist Start: 11-27-2020 take 2 puff(s) by inhalation twice daily budesonide-formoteroL (SYMBICORT) 160-4.5 mcg/actuation inhaler Inhale 2 (two) puffs 2 (two) times a day . 1 Inhaler 0 11/27/2020 Active Start: 11-27-2020 End: 12-27-2020 take 2 puff(s) by inhalation twice daily budesonide-formoteroL (SYMBICORT) 160-4.5 mcg/actuation inhaler Inhale 2 (two) puffs 2 (two) times a day . 1 Inhaler 0 11/27/2020 12/27/2020 Active Start: 11-27-2020 End: 12-27-2020 Start: 11-10-2020 End: 11-29-2020 take 2 puff(s) by inhalation twice daily 2 puff, Inhalation, 2 times daily (RT), First dose on Fri11/10/20 at 2000 SPACER REQUIRED FOR ADMINISTRATION calcium carbonate 500 mg chewable tablet (5 sources) Start: 11-21-2020 End: 12-27-2020 calcium carbonate (TUMS) 200 mg calcium (500 mg) chewable tablet Chew and Swallow 1 (one) tablet (500 mg total) daily as needed . 1 tablet 0 11/27/2020 12/27/2020 Active ciprofloxacin 500 mg oral tablet (5 sources) Quinolone Antimicrobial Start: 11-27-2020 End: 12-18-2020 take 1 tablet by mouth twice daily ciprofloxacin HCl (CIPRO) 500 MG tablet Take 1 (one) tablet (500 mg total) by mouth 2 (two) times a day for 21 days . 42 tablet 0 11/27/2020 12/18/2020 Active Start: 02-09-2020 End: 03-08-2020 take 500 mg by mouth twice daily Ciprofloxacin Hcl Discontinued 500 MG PO Twice daily February 09, 2020 12:00am March 08, 2020 1:37pm clopidogrel 75 mg oral tablet (13 sources) P2Y12 Platelet Inhibitor Start: 11-13-2020 End: 11-09-2021 take 1 tablet by mouth once daily clopidogreL (PLAVIX) 75 mg tablet Take 1 (one) tablet (75 mg total) by mouth daily . 90 tablet 3 11/14/2020 11/09/2021 Active docusate sodium 100 mg oral capsule (20 sources) take 1 capsule by mouth every twenty-four hours Docusate Sodium 100 MG 1 capsule as needed Orally Once a day OTC Active docusate sodium 50 mg / sennosides, mcfp 8.6 mg oral tablet (5 sources) Start: 11-27-2020 End: 12-27-2020 Start: 11-13-2020 End: 12-27-2020 take 1 tablet by mouth twice daily senna-docusate (SENNA-S) 8.6-50 mg Take 1 (one) tablet by mouth 2 (two) times a day . 60 tablet 0 11/27/2020 12/27/2020 Active famotidine 20 mg oral tablet (20 sources) Histamine-2 Receptor Antagonist Start: 11-21-2020 End: 12-27-2020 take 1 tablet by mouth once daily famotidine (PEPCID) 20 MG tablet Take 1 (one) tablet (20 mg total) by mouth nightly . 30 tablet 0 11/27/2020 Active fluticasone propionate 0.05 mg/actuat metered dose nasal spray (20 sources) Corticosteroid take 1 spray(s) nasal route once daily Fluticasone Propionate 50 MCG/ACT 1 spray in each nostril Nasally Once a day Active take 1 spray(s) nasal route once daily Fluticasone Propionate 50 MCG/ACT 1 spray in each nostril Nasally Once a day Active 12 hr guaiFENesin 600 mg extended release oral tablet (5 sources) Start: 11-27-2020 End: 12-27-2020 take 1 tablet by mouth once guaiFENesin (MUCINEX) 600 mg 12 hr tablet Take 1 (one) tablet (600 mg total) by mouth every 12 (twelve) hours . 60 tablet 0 11/27/2020 12/27/2020 Active Start: 11-14-2020 End: 12-27-2020 take 600 mg by mouth every twelve hours hydrocortisone 25 mg/ml topi yong cream (20 sources) Corticosteroid Hydrocortisone 2 .5 % 1 application Externally Once a day Active Hydrocortisone 2 .5 % 1 application Externally Once a day Active inulin 200 mg / lactobacillus rhamnosus gg [id number] unt oral capsule (14 sources) Culturelle - as directed Orally OTC Active Lactinex (14 sources) Lactinex Active levothyroxine sodium 0.075 mg oral tablet (20 sources) l-Thyroxine Start: 03-12-2017 take 1 tablet by mouth once daily Levothyroxine (Synthroid) 75 mcg Tablet Active 75 MCG PO Daily March 12, 2017 12:00am take 1 tablet by alison th once daily in the morning Levothyroxine Sodium 75 MCG 1 tablet in the morning on an empty stomach Orally Once a day Active take 1 tablet by alison th every twenty-four hours Levothyroxine Sodium 88 MCG 1 tablet Ora lly Once a day Active melatonin 5 mg oral tablet (11 sources) Start: 11-09-2020 End: 12-27-2020 take 1 tablet by mouth once daily as needed for sleep melatonin 5 mg Tab Take 1 (one) tablet (5 mg total) by mouth nightly as needed (Sleep) . 1 tablet 0 11/27/2020 Active methotrexate 2.5 mg oral tablet (20 sources) Folate Analog Metabolic Inhibitor Start: 12-01-2020 End: 11-29-2020 take 10 mg by mouth every week 10 mg, Oral, Weekly, First dose (after last modification) on Fri12/01/20 at 0900 CATEGORY C HAZARDOUS DRUG use safe handling precautions. Use reference link to view PPE guidelines. Chemotherapy Agent (Refer to Policy Rx- 910.023). DO NOT CRUSH OR CHEW. Indication: Rheumatoid Arthritis Ordering restricted to Attending provider: I am an Attending provider Start: 02-09-2020 End: 05-31-2020 take 2.5 mg by mouth every week Methotrexate Sodium Di scontinued 2.5 MG PO every week February 09, 2020 12:00am May 31, 2020 2:22pm take 4 tablets by mo uth every week at bedtime Methotrexate Sodium 2.5 MG TAKE 4 TABLETS BY MOUTH AT BEDTIME EVERY WEEK ON THURSDAYS for 84 Active Methotrexate Not -Taking Methotrexate Act mildred midodrine hydrochloride 5 mg oral tablet (3 sources) alpha-Adrenergic Agonist take 1 tablet by mouth every twelve hours Midodrine HCl 5 MG 1 tablet Orally Twice a day Active MiraLax 17 GM/SCOOP (3 sources) MiraLax 17 GM/SC OOP as directed Orally Active Multivitamin preparation (14 sources) take 1 tablet by mouth once daily Multivitamin - 1 tablet Orally Once a day OTC Active take 1 tablet by mouth once aretha y Multivitamin - 1 tablet Orally Once a day Active naproxen sodium 220 mg oral tablet (20 sources) Nonsteroidal Anti-inflammatory Drug Start: 06-19-2020 take 1 tablet by mouth twice daily Naproxen Sodium (Aleve) 220 mg Tablet Active 220 MG PO Twice daily June 19, 2020 1:00am take 1 tablet by alison th every twelve hours at mealtime as needed Aleve 220 MG 1 tablet with food or milk as needed Orally every 12 hrs Not-Taking nystatin 100 unt/mg topical powder (20 sources) Polyene Antifungal Nystatin 1000 00 UNIT/GM 1 application Externally Twice a day Active ondansetron 4 mg oral tablet (20 sources) Serotonin-3 Receptor Antagonist take 1 tablet by mouth every twenty-four hours Ondansetron HCl 4 MG 1 tablet Orally Once a day Active take 1 tablet by alison th every twenty-four hours Ondansetron 4 MG 1 tablet on the tongue and allow to dissolve Orally Once a day Active oxyCODONE hydrochloride 5 mg oral tablet (20 sources) Opioid Agonist Start: 04-04-2023 take 1 tablet by mouth once daily as needed for pain oxyCODONE HCl 5 MG 1 tablet Orally qd as needed for pain for 30 days Mar, Active Start: 03-05-2023 take 1 tablet by alison th once daily as needed for pain oxyCODONE HCl 5 MG 1 tablet Orally qd as needed for pain for 30 days Feb, Active Start: 02-17-2023 take 1 tablet by alison th once daily as needed for pain oxyCODONE HCl 5 MG 1 tablet Orally qd as needed for pain Jan, Active Start: 01-14-2023 take 1 tablet by alison th twice daily as needed for pain oxyCODONE HCl 5 MG 1 tablet Orally bid as needed for pain Dec, Active Start: 11-28-2022 take 1 tablet by alison th twice daily as needed for pain oxyCODONE HCl 5 MG 1 tablet Orally bid as needed for pain Nov, Active Start: 11-10-2022 take 1 tablet by alison twice daily as needed for pain oxyCODONE HCl 5 MG 1 tablet Orally bid as needed for pain for 15 days Oct, Active Start: 10-14-2022 take 1 tablet by alison twice daily as needed for pain oxyCODONE HCl 5 MG 1 tablet Orally bid as needed for pain for 15 days September, Active Start: 09-24-2022 take 1 tablet by alison th every eight hours as needed for pain oxyCODONE HCl 5 MG 1 tablet Orally every 8 hours as needed for pain September, Active Start: 08-26-2022 take 1 tablet by alison th every six hours as needed for pain oxyCODONE HCl 5 MG 1 tablet Orally every 6 hours as needed for pain for 15 days Aug, Active Start: 08-02-2022 take 1 tablet by alison th three times daily as needed for pain oxyCODONE HCl 5 MG 1 tablet Orally tid as needed for pain for 30 days Jul, Active Start: 06-27-2022 take 1 tablet by alison th every six hours as needed for pain oxyCODONE HCl 5 MG 1 tablet Orally every 6 hours PRN pain Jun, Active penicillin v potassium 500 mg oral tablet (1 source) Start: 07-06-2021 End: 07-16-2021 take 1 tablet by mouth four times daily penicillin v potassium (VEETID) 500 MG tablet Indications: Open wound of right knee, initial encounter Take 1 (one) tablet (500 mg total) by mouth 4 (four) times a day for 10 days . 40 tablet 0 07/06/2021 07/16/2021 Active polyethylene glycol 3350 85077 mg powder for oral solution (14 sources) Osmotic Laxative MiraLax 17 GM/SCOOP 1 scoop mixed with 8 ounces of fluid Orally Once a day OTC Active Polysaccharide iron complex (17 sources) Niferex - as directed Orally OTC Active Niferex - as dir ected Orally Active potassium chloride 20 meq extended release oral tablet (20 sources) take 1 tablet by alison th every twenty-four hours Potassium Chloride ER 20 MEQ 1 tablet with food Orally Once a day for 90 days Active take 1 tablet by alison th every twenty-four hours Potassium Chloride Sujey ER 20 MEQ 1 tablet with food Orally Once a day Active Completed/Discontinued Medications Medication Drug Class(es) Dates Sig (Normalized) Sig (Original) acetaminophen 325 mg oral tablet (20 sources) Start: 11-09-2020 End: 11-29-2020 take 1 tablet by mouth every four hours as needed for headache 650 mg, Oral, Every 4 hours PRN, fever 100.4 F or greater, headaches, Starting on 11/13/20 at 2019 take 1 tablet by mouth every six hours Acetaminophen 500 MG 1 tablet as needed Orally every 6 hrs Active acetaminophen 325 mg / HYDRO codone bitartrate 5 mg oral tablet (5 sources) Opioid Agonist Start: 11-27-2020 End: 11-30-2020 Start: 11-13-2020 End: 11-30-2020 HYDROcodone-acetaminophen (N ORCO) 5-325 mg per tablet Indications: Open wound of right lower extremity, initial encounter Take 1 (one) tablet by mouth every 4 (four) hours as needed (Days supply per fill: 3) . 18 tablet 0 11/27/2020 11/30/2020 acetaminophen 325 mg / oxyCODONE hydrochloride 5 mg oral tablet (1 source) Opioid Agonist Start: 03-04-2017 End: 05-31-2020 take 1 tablet by mouth once daily Oxycodone-Acetaminophen Discontinued 1 TAB PO Daily March 04, 2017 12:00am May 31, 2020 2:22pm [id number] 200 actuat albuterol 0.09 mg/actuat metered dose inhaler (11 sources) beta2-Adrene rgic Agonist Start: 11-09-2020 End: 11-11-2020 take 2 puff(s) by inhalation every six hours as needed for wheezing 2 puff, Inhalation, Every 6 hours PRN, wheezing, Starting on Fri11/09/20 at 2344 SPACER REQUIRED FOR ADMINISTRATION albuterol 0.833 mg/ml / ipratropium bromide 0.167 mg/ml inhalation solution (20 sources) Anticholinergic, beta2-Adrenergic Agonist Start: 11-14-2020 End: 11-29-2020 take 3 mL by inhalation every two hours as needed for wheezing 3 mL, Inhalation, Every 2 hour PRN (RT), wheezing, shortness of breath, Starting on Fri11/14/20 at 0937 Start: 11-12-2020 End: 11-29-2020 take 3 mL by inhalation four times daily 3 mL, Inhalation, 4 times daily (RT), First dose (after last modification) on Fri11/12/20 at 1200 Start: 11-09-2020 End: 11-09-2020 take 3 mL by inhalation once 3 mL, Inhalation, Once, O n Fri11/09/20 at 1655, For 1 dose take 3 mL by inhalat ion every six hours as needed Ipratropium-Albuterol 0.5-2.5 (3) MG/3ML 3 mL as needed Inhalation every 6 hrs Active alendronic acid 70 mg oral tablet (1 source) Bisphosphonate Start: 02-09-2020 End: 06-19-2020 take 70 mg by mouth every week Alendronate Discontinued 70 MG PO every week February 09, 2020 12:00am June 19, 2020 11:04am ascorbic acid 500 mg oral tablet (11 sources) Vitamin C Start: 11-10-2020 End: 11-29-2020 take 500 mg by mouth once daily 500 mg, Oral, Daily, First dose on Fri11/10/20 at 0900 aspirin 81 mg delayed release oral tablet (1 source) Platelet Aggregation Inhibitor, Nonsteroidal Anti-inflammatory Drug Start: 11-10-2020 End: 11-13-2020 take 81 mg by mouth once daily 81 mg, Oral, Daily, First dose on Fri11/10/20 at 1045 DO NOT CRUSH OR CHEW. azithromycin 250 mg oral tablet (1 source) Macrolide Antimicrobial Start: 11-15-2020 End: 11-18-2020 take 250 mg by mouth once daily 250 mg, Oral, Daily, First dose (after last reorder) on Fri11/15/20 at 1445, For 4 doses Indication: COPD Exacerbation bisacodyl 10 mg rectal suppository (20 sources) Stimulant Laxative Start: 11-09-2020 End: 11-29-2020 take 10 mg rectal route once daily as needed for constipation 10 mg, Rectal, Daily PRN, constipation, Starting on Sara 11/09/20 at 2344 Try oral medications first for constipation.&nb sp; Try rectal medication if oral meds are ineffective, not tolerated, or not ordered. 12 hr buPROPion hydrochloride 150 mg extended release oral tablet (20 sources) Aminoketone Start: 11-10-2020 End: 11-29-2020 take 150 mg by mouth twice daily 150 mg, Oral, 2 times daily, First dose on Fri11/10/20 at 0030 DO NOT CRUSH OR CHEW. Start: 02-09-2020 End: 06-19-2020 take 150 mg by mouth twice daily Bupropion Hcl Discontinued 150 MG PO Twice daily February 09, 2020 12:00am June 19, 2020 11:04am take 1 tablet by alison every twenty-four hours buPROPion HCl ER (SR) 150 MG 1 tablet in the morning Orally Once a day Active calcium chloride 0.0014 meq/ml / potassium chloride 0.004 meq/ml / sodium chloride 0.103 meq/ml / sodium lactate 0.028 meq/ml injectable solution (2 sources) Start: 11-22-2020 End: 11-24-2020 take 25 mL intravenously every hour 25 mL/hr, Intravenous, Continuous, Starting on Fri11/22/20 at 1100 Start: 11-15-2020 End: 11-16-2020 take 25 mL intravenously every hour 25 mL/hr, Intravenous, Continuous, Starting on Fri11/15/20 at 1045, Pre-Procedure ceFAZolin 2000 mg injection (1 source) Cephalosporin Antibacterial Start: 11-12-2020 End: 11-12-2020 take 2000 mg intravenously every eight hours 2,000 mg, Intravenous, at 100 mL/hr, Every 8 hours, First dose on Fri11/12/20 at 0800 Indication: Community Acquired Cellulitis cefepime 2000 mg injection (1 source) Cephalosporin Antibacterial Start: 11-12-2020 End: 11-29-2020 take 2000 mg intravenously every twelve hours 2,000 mg, Intravenous, at 100 mL/hr, Every 12 hours, First dose on Fri11/12/20 at 1500 Indication: Other (specify) Indication: non-healing surgical wound with pseudomonas growing from culture cholecalciferol 0.025 mg oral tablet (20 sources) Vitamin D Start: 11-10-2020 End: 11-29-2020 take 1000 [IU] by mouth once daily 1,000 Units, Oral, Daily, First dose on Fri11/10/20 at 0900 take 1 tablet by mouth once aretha y Cholecalciferol 50 MCG (1999 UT) 1 tablet Orally Once a day OTC Active take 1 tablet by mouth once aretha y Cholecalciferol 50 MCG (1999 UT) 1 tablet Orally Once a day Active take 1 capsule by mouth once lukasz ly Cholecalciferol 50 MCG (1999 UT) 1 capsule Orally Once a day Active DAPTOmycin 500 mg injection (20 sources) Lipopeptide Antibacterial DAPTOmycin 500 MG as directed Intravenous Not-Taking diclofenac sodium 0.01 mg/mg topical gel (14 sources) Nonsteroidal Anti-inflammatory Drug Diclofenac Sodium 1 % as directed Externally Not-Taking/PRN doxycycline hyclate 100 mg oral capsule (20 sources) Tetracycline-class Drug Start: 0 End: take 100 mg by mouth once daily 100 mg, Oral, Daily, First dose on Fri11/10/20 at 0700 Take 1 hour before or 4 hours after metallic cations (e.g.antacids, aluminum,magnesium, calcium, ferrous sulfate) Indication: Skin & Soft Tissue Infection Doxycycline Hycl ate Not-Taking Doxycycline Hycl ate Active 0.3 ml enoxaparin sodium 100 mg/ml prefilled syringe (20 sources) Low Molecular Weight Heparin Start: 11-21-2020 End: 11-26-2020 inject 30 mg by subcutaneous injection once daily 30 mg, Subcutaneous, Daily, First dose (after last modification) on Fri11/21/20 at 2100 Administer in abdomen unless otherwise directed by prescriber. Notify physician if patient refuses. Indication: VTE Prophylaxis Start: 11-20-2020 End: 11-21-2020 inject 40 mg by subcutaneous injection once daily 40 mg, Subcutaneous, Daily, First dose on Fri11/20/20 at 2100 Administer in abdomen unless otherwise directed by prescriber. Notify physician if patient refuses. Indication: VTE Prophylaxis Start: 11-15-2020 End: 11-17-2020 inject 40 mg by subcutaneous injection once daily in the evening 40 mg, Subcutaneous, Every evening, First dose (after last modification) on Fri11/15/20 at 2100 Administer in abdomen unless otherwise directed by prescriber. Notify physician if patient refuses. Indication: VTE Prophylaxis Start: 11-12-2020 End: 11-14-2020 inject 40 mg by subcutaneous injection once daily 40 mg, Subcutaneous, Daily, First dose (after last modification) on Fri11/12/20 at 0900 Administer in abdomen unless otherwise directed by prescriber. Notify physician if patient refuses. Indication: VTE Prophylaxis Start: 11-10-2020 End: 11-11-2020 inject 30 mg by subcutaneous injection once daily 30 mg, Subcutaneous, Daily, First dose on Fri11/10/20 at 0900 Administer in abdomen unless otherwise directed by prescriber. Notify physician if patient refuses. Indication: VTE Prophylaxis folic acid 1 mg oral tablet (20 sources) Start: 11-10-2020 End: 11-29-2020 take 1 mg by mouth once daily 1 mg, Oral, Daily, First dose on Fri11/10/20 at 0900 120 actuat formoterol fumarate 0.0048 mg/actuat / glycopyrrolate 0.009 mg/actuat metered dose inhaler (11 sources) beta2-Adrenergi c Agonist Start: 02-09-2020 End: 06-19-2020 Glycopyrrolate-Form oterol (Bevespi Aerosphere) 9-4.8 mcg Hfa Aerosol Inhaler Discontinued 2 PUFF INHALATION Twice daily February 09, 2020 12:00am June 19, 2020 11:04am glycopyrrolate-f ormoteroL (Bevespi Aerosphere) 9-4.8 mcg HFAA Inhale 2 puffs 2 (two) times a day . 0 Active 4 ml furosemide 10 mg/ml injection (20 sources) Loop Diuretic Start: 11-16-2020 End: 11-16-2020 20 mg, Intravenous, Once, On Sara 11/16/20 at 0815, For 1 dose Start: 11-11-2020 End: 11-29-2020 take 20 mg by mouth once daily 20 mg, Oral, Daily, Fir st dose on 11/11/20 at 1530 Start: 03-04-2017 take 20 mg by mouth once daily Furosemide Active 20 MG PO Daily March 04, 2017 12:00am gabapentin 100 mg oral capsule (1 source) Anti-epileptic Agent Start: 02-09-2020 End: 06-19-2020 take 100 mg by mouth once daily Gabapentin Discontinued 100 MG PO Daily February 09, 2020 12:00am June 19, 2020 11:03am gentamicin 0.001 mg/mg topical ointment (1 source) Start: 03-22-2020 End: 05-31-2020 Gentamicin Discontinued 1 APPLIC TOPICAL .w/dressings 30 March 22, 2020 12:00am May 31, 2020 2:22pm follow wound care orders sodium hypochlorite 2.5 mg/ml topical solution (1 source) Start: 03-22-2020 End: 06-19-2020 Sodium Hypochlorite (Dakin's Solution) 0.25 % solution Discontinued 1 APPLIC TOPICAL .w/dressings 473 March 22, 2020 12:00am June 19, 2020 11:04am use as per wound orders Lactobacillus (20 sources) Lactobacillus - as directed Orally Not-Taking Lactobacillus - as directed Orally Active leflunomide 20 mg oral tablet (20 sources) Antirheumatic Agent Start: 11-29-2020 End: 11-29-2020 take 20 mg by mouth every other day 20 mg, Oral, Every other day, First dose (after last modification) on Fri11/29/20 at 1200 CATEGORY C HAZARDOUS DRUG use safe handling precautions. Use reference link to view PPE guidelines. Minimize crushing/splitting only to situations where clinically necessary. Start: 03-04-2017 take 20 mg by mouth once daily Leflunomide Active 20 MG PO Daily March 04, 2017 12:00am Normal saline (20 sources) Normal Saline Fl ush 0.9 % as directed Intravenous Not-Taking End: 12-21-2022 Saline Nasal [place] 0.65 % as directed Nasally Nov, Not-Taking Saline Nasal Spr ay 0.65 % as directed Nasally Active Normal Saline Fl ush 0.9 % as directed Intravenous Active predniSONE 20 mg oral tablet (20 sources) Start: 11-16-2020 End: 11-20-2020 take 40 mg by mouth once daily at breakfast 40 mg, Oral, Daily with breakfast, First dose on Fri11/16/20 at 0800, For 5 days Start: 03-04-2017 End: 06-19-2020 take 5 mg by mouth once daily Prednisone Discontinued 5 MG PO Daily March 04, 2017 12:00am June 19, 2020 11:04am rivaroxaban 20 mg oral tablet (20 sources) Factor Xa Inhibitor Start: 11-26-2020 End: 11-29-2020 20 mg, Oral, Daily, First dose on Fri11/26/20 at 1800 Must be given with food. Notify physician if patient refuses. If feeding tube administration, give only via tubes placed in the stomach. Indication: DVT/PE How long has patient been on rivaroxiban? 21 Days - 6 Months Start: 06-19-2020 take 1 tablet by alison th twice daily Rivaroxaban (Xarelto) 15 mg tablet Active 15 MG PO Twice daily June 19, 2020 1:00am Start: 05-31-2020 End: 06-19-2020 take 1 tablet by mouth at dinner Rivaroxaban (Xarelto Dvt-Pe Treat 30d Start) 15 mg (42)- 20 mg (9) tablets,dose pack Discontinued 0 PO .COMPLEX 51 May 31, 2020 1:00am June 19, 2020 11:02am must administer with evening meal sennosides, mcfp 8.6 mg oral tablet (1 source) Start: 11-09-2020 End: 11-29-2020 take 1 tablet by mouth twice daily as needed for constipation 8.6 mg (1 tablet), Oral, 2 times daily PRN, constipation, Starting on Fri11/09/20 at 2344 1000 ml sodium chloride 9 mg/ml injection (20 sources) Start: 11-17-2020 End: 11-17-2020 500 mL, Intravenous, at 967.7 mL/hr, Once, On Fri11/17/20 at 2200, For 1 dose Start: 11-12-2020 End: 11-13-2020 take 75 mL intravenously every hour 75 mL/hr, Intravenous, Continuous, Starting on Fri11/13/20 at 1800, For 6 hours Sodium Chloride 0.65 % as directed Nasally OTC Active Sodium Chloride 0.65 % as directed Nasally Active sulfamethoxazole 800 mg / trimethoprim 160 mg oral tablet (17 sources) Dihydrofolate Reductase Inhibitor Antibacterial, Sulfonamide Antimicrobial take 1 tablet by mouth every twelve hours Sulfamethoxazole-Trimethoprim 800-160 MG 1 tablet Orally Twice a day Not-Taking/PRN 10 actuat tiotropium 0.0025 mg/actuat inhalation spray (1 source) Anticholinergic Sta rt: 1 End : 1 take 2 puff(s) by inhalation once daily 2 puff, Inhalation, Daily (RT), First dose on Fri11/10/20 at 1415 traZODone hydrochloride 50 mg oral tablet (1 source) Serotonin Reuptake Inhibitor Sta rt: 1 End : 1 take 50 mg by mouth once daily as needed for sleep 50 mg, Oral, Nightly PRN, sleep, Starting on Fri11/09/20 at 2344 To be administered 1 hour after melatonin if still awake. May repeat x 1 dose in 30 minutes if still awake. 7 actuat umeclidinium 0.0625 mg/actuat / vilanterol 0.025 mg/actuat dry powder inhaler (20 sources) Anticholinergic, beta2-Adrenergic Agonist Sta rt: 0 End : 1 Umeclidinium-Vilanterol (Ano ro Ellipta) 62.5-25 mcg/actuation Blister With Device Discontinued 1 INH INHALATION Daily February 09, 2020 12:00am June 19, 2020 11:04am take 1 puff(s) by inhalation onc e daily Anoro Ellipta 62.5-25 MCG/ACT 1 puff Inhalation Once a day Active 200 ml vancomycin 5 mg/ml injection (1 source) Glycopeptide Antibacterial Start: 11-09-2020 End: 11-09-2020 1,000 mg, Intravenous, at 200 mL/hr, Once, On Fri11/09/20 at 1700, For 1 dose VESICANT Indication: OTHER Indication: Post op infxn vitamin b12 0.1 mg oral tablet (11 sources) Vitamin B12 Start: 11-10-2020 End: 11-29-2020 take 100 ug by mouth once daily 100 mcg, Oral, Daily, First dose on Fri11/10/20 at 0900 (9 sources) Start: 11-22-2020 End: 11-29-2020 [Order 1 Start] Name: naloxone (NARCAN) injection 0.1 mg Signed Summary: 0.1 mg, Intravenous, As needed, opioid reversal, Starting on Fri11/22/20 at 1140, PACU (only) [] Mix nalOXone (NARCAN) 0.4 mg (1ml) with 9 mL of Normal Saline to total 10 mL. [] Administer 0.1 mg (2.5ml) IV Push every 2 minutes until respiratory rate is 10 or greater. [Order 1 End] [Order 2 Start] Name: naloxone (NARCAN) injection 0.4 mg Signed Summary: 0.4 mg, Intravenous, As needed, opioid reversal, patient is pulseless, breathless, and unresponsive, Starting on Fri11/22/20 at 1140, PACU (only) Call a code first, then administer naloxone dose undiluted IV Push over 30 seconds. [Order 2 End] Start: 11-14-2020 End: 11-15-2020 take 500 mg intravenously every twenty-four hours 500 mg, Intravenous, at 250 mL/hr, Every 24 hours, First dose on Fri11/14/20 at 1030 Indication: COPD Exacerbation Start: 11-13-2020 End: 11-29-2020 [Order 1 Start] Name: naloxo ne (NARCAN) injection 0.1 mg Signed Summary: 0.1 mg, Intravenous, As needed, opioid reversal, For respiratory rate less than or equal to 8 per minute., Starting on Fri11/13/20 at 2020 Mix nalOXone (NARCAN) 0.4 mg (1ml) with 9 mL of Normal Saline to total 10 mL. Administer 0.1 mg (2.5ml) IV Push every 2 minutes until respiratory rate is 10 or greater. [Order 1 End] [Order 2 Start] Name: Notify physician Signed Summary: STAT, Until discontinued, Starting on Fri11/13/20 at 2020, Until Specified Respiratory rate less than: 8 For respiratory rate less than or equal to 8, notify physician and/or appropriate staff for additional orders. [Order 2 End] [Order 3 Start] Name: naloxone (NARCAN) injection 0.4 mg Signed Summary: 0.4 mg, Intravenous, As needed, opioid reversal, patient is pulseless, breathless, and unresponsive, Starting on Fri11/13/20 at 2019 Call a code first, then administer naloxone dose undiluted IV Push over 30 seconds. [Order 3 End] Start: 11-13-2020 End: 11-29-2020 take 5 mg intravenously every six hours as needed [Order 1 Start] Name: metoprolol (LOPRESSOR) injection 5 mg Signed Summary: 5 mg, Intravenous, Every 6 hours PRN, SBP greater than range on Hemodynamic Goal-SBP order AND antihypertensive infusion at max dose (or not ordered) AND HR greater than 60., Starting on Fri11/13/20 at 2019 DO NOT USE if HR = 60 or less. (Use hydralazine in that case, if ordered. Otherwise call physician for alternative antihypertensive therapy.) [Order 1 End] [Order 2 Start] Name: hydrALAZINE (APRESOLINE) injection 10 mg Signed Summary: 10 mg, Intravenous, Every 6 hours PRN, SBP greater than range on Hemodynamic Goal-SBP order AND antihypertensive infusion at max dose (or not ordered)., Starting on Fri11/13/20 at 2019 Use metoprolol (LOPRESSOR) first if HR greater than 60. DO NOT USE hydralazine if HR greater than 100. [Order 2 End] Start: 11-13-2020 End: 11-29-2020 [Order 1 Start] Name: Saline lock IV Signed Summary: Routine, Continuous, Starting on Fri11/13/20 at 2020, Until Specified [Order 1 End] [Order 2 Start] Name: sodium chloride (PF) (NS) flush 5 mL Signed Summary: 5 mL, Intravenous, As needed, line care, Starting on Fri11/13/20 at 2019 [Order 2 End] [Order 3 Start] Name: sodium chloride (PF) (NS) flush 5 mL Signed Summary: 5 mL, Intravenous, Every 8 hours scheduled, First dose on Fri11/13/20 at 2200 Saline lock [Order 3 End] [Order 4 Start] Name: sodium chloride 0.9% (NS) Signed Summary: 0-150 mL/hr, Intravenous, As needed, To flush line after IV infusions when no maintenance IV ordered or a compatibility issue. Infuse 20ml at the same rate as the secondary infusion, Starting on Fri11/13/20 at 2020 Run as Primary IV. NOT intended for KVO. [Order 4 End] Start: 11-10-2020 End: 11-10-2020 0.672 millicurie, Intravenou s, Once, On Fri11/10/20 at 1400, For 1 dose Start: 11-10-2020 End: 11-10-2020 10.2 millicurie, Intravenous , Once, On Fri11/10/20 at 1030, For 1 dose Start: 11-09-2020 End: 11-29-2020 take 4 mg by mouth every six hours as needed [Order 1 Start] Name: ondansetron (ZOFRAN-ODT) disintegrating tablet 4 mg Signed Summary: 4 mg, Oral, Every 6 hours PRN, nausea, vomiting, Starting on Fri11/09/20 at 2344 Use oral route first, if tolerated. Formulation requires tablet remain in sealed package until immediately prior to dose being administered. [Order 1 End] [Order 2 Start] Name: ondansetron (ZOFRAN) injection 4 mg Signed Summary: 4 mg, Intravenous, Every 6 hours PRN, nausea, vomiting, Starting on Fri11/09/20 at 2344 Use oral route first, if tolerated. [Order 2 End] Start: 11-09-2020 End: 11-29-2020 [Order 1 Start] Name: Saline lock IV Signed Summary: Routine, Continuous, Starting on Fri11/09/20 at 2345, Until Specified [Order 1 End] [Order 2 Start] Name: sodium chloride (PF) (NS) flush 5 mL Signed Summary: 5 mL, Intravenous, As needed, line care, Starting on Fri11/09/20 at 2344 [Order 2 End] [Order 3 Start] Name: sodium chloride (PF) (NS) flush 5 mL Signed Summary: 5 mL, Intravenous, Every 8 hours scheduled, First dose on Fri11/10/20 at 0030 Saline lock [Order 3 End] [Order 4 Start] Name: sodium chloride 0.9% (NS) Signed Summary: 0-150 mL/hr, Intravenous, As needed, To flush line after IV infusions when no maintenance IV ordered or a compatibility issue. Infuse 20ml at the same rate as the secondary infusion, Starting on Sara 11/09/20 at 2344 Run as Primary IV. NOT intended for KVO. [Order 4 End] Problems Active Problems Problem Classification Problem Date Documented Da te Episodic/Chronic Acute posthemorrhagic anemia (2 sources) Acute posthemorrhagic anemia; Translations: [Acute posthemorrhagic anemia] Onset: 2 Episodic Administrative/social admission (1 source) Person awaiting admission to adequate facility elsewhere; Translations: [PERSON AWAITING ADMISSION TO ADEQUATE FACILITY ELSEWHERE] Onset: 2 Episodic Anxiety disorders (1 source) Anxiety disorder, unspecified; Translations: [ANXIETY DISORDER, UNSPECIFIED] Onset: 2 Chronic Cancer of colon (20 sources) Malignant neoplasm of colon, unspecified; Translations: [Primary malignant neoplasm of transverse colon] Onset: 7 Chronic Cancer of colon (20 sources) Personal history of other malignant neoplasm of large intestine; Translations: [History of malignant neoplasm of colon] Onset: 2 Episodic Cardiac dysrhythmias (2 sources) Supraventricular tachycardia; Translations: [Unspecified atrial fibrillation] Onset: 2 Chronic Chronic obstructive pulmonary disease and bronchiectasis (20 sources) Chronic obstructive lung disease; Translations: [Chronic obstructive pulmonary disease, unspecified] Onset: 2 Chronic Chronic ulcer of skin (5 sources) Ulcer; Translations: [Ulcerative lesion] 03-12-2017 Chronic Complication of device; implant or graft (20 sources) Infection and inflammatory reaction due to internal left hip prosthesis, initial encounter; Translations: [Pain due to internal orthopedic prosthetic devices, implants and grafts, initial encounter] Onset: 2 Episodic Congestive heart failure; nonhypertensive (5 sources) Chronic diastolic (congestive) heart failure; Translations: [Acute on chronic combined systolic (congestive) and diastolic (congestive) heart failure] Onset: 2 Chronic Coronary atherosclerosis and other heart disease (1 source) Atherosclerotic heart disease of [place] coronary artery without angina pectoris; Translations: [ATHSCL HEART DISEASE OF 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 Deficiency and other anemia (3 sources) Anemia, unspecified; Translations: [ANEMIA, UNSPECIFIED] Onset: 2 Episodic Esophageal disorders (20 sources) Gastro-esophageal reflux disease without esophagitis; Translations: [Gastro-esophageal reflux disease with esophagitis] Onset: 2 Chronic Essential hypertension (5 sources) Essential (primary) hypertension; Translations: [ESSENTIAL (PRIMARY) HYPERTENSION] Onset: 2 Chronic Fracture of lower limb (20 sources) Other fracture of left femur, initial encounter for closed fracture; Translations: [Closed fracture of shaft of femur] Onset: 1 Resolved: 1 Episodic Hypertension with complications and secondary hypertension (1 source) Hypertensive heart disease with heart failure; Translations: [HYPERTENSIVE HEART DISEASE WITH HEART FAILURE] Onset: 2 Chronic Immunity disorders (1 source) Immunodeficiency, unspecified; Translations: [IMMUNODEFICIENCY, UNSPECIFIED] Onset: 2 Chronic Infective arthritis and osteomyelitis (except that caused by tuberculosis or sexually transmitted disease) (8 sources) Osteomyelitis, unspecified; Translations: [Chronic osteomyelitis with draining sinus, left femur] Onset: 3 Chronic Infective arthritis and osteomyelitis (except that caused by tuberculosis or sexually transmitted disease) (5 sources) Pyogenic arthritis, unspecified; Translations: [PYOGENIC ARTHRITIS UNSPECIFIED] Onset: 3 Episodic Malaise and fatigue (1 source) Other fatigue Episodic Menopausal disorders (1 source) Hormone replacement therapy; Translations: [HORMONE REPLACEMENT THERAPY] Onset: 2 Episodic Mood disorders (20 sources) Depressive disorder; Translations: [Major depressive disorder, single episode, unspecified] Chronic Mood disorders (1 source) Mood disorders; Translations: [DEPRESSION, UNSPECIFIED] Onset: 2 Mycoses (20 sources) Candidiasis; Translations: [Candidal stomatitis] Episodic Open wounds of extremities (12 sources) Open wound of right knee; Translations: [Unspecified open wound, right knee, initial encounter] Onset: 2 Resolved: 2 Episodic Osteoarthritis (20 sources) Unilateral primary osteoarthritis, right hip; Translations: [Osteoarthritis of left hip joint] Onset: 2 Chronic Osteoporosis (20 sources) Primary osteoporosis; Translations: [Age-related osteoporosis without current pathological fracture] Chronic Other aftercare (3 sources) Aftercare following joint replacement surgery; Translations: [AFTERCARE FOLLOWING JOINT REPLACEMENT SURGERY] Onset: 2 Chronic Other aftercare (1 source) Aftercare following explantation of hip joint prosthesis; Translations: [AFTERCARE FLW EXPLAN HIP JOINT PROS] Onset: 3 Episodic Other aftercare (1 source) long term care phlebotomist (current) use of antibiotics; Translations: [SNF CURRENT USE ANTIBIOTICS] Onset: 3 Episodic Other connective tissue disease (20 sources) Hip joint prosthesis present; Translations: [Presence of left artificial hip joint] Chronic Other connective tissue disease (7 sources) Presence of left artificial hip joint; Translations: [PRESENCE OF LEFT ARTIFICIAL HIP JOINT] Onset: 1 Resolved: 1 Chronic Other connective tissue disease (20 sources) History of revision of left total hip arthroplasty; Translations: [Presence of left artificial hip joint] Chronic Other connective tissue disease (4 sources) Presence of right artificial hip joint; Translations: [PRESENCE RIGHT ARTIFICIAL HIP JOINT] Onset: 3 Chronic Other connective tissue disease (2 sources) Presence of unspecified artificial hip joint Chronic Other connective tissue disease (1 source) Swelling of lower limb; Translations: [Other specified soft tissue disorders] Episodic Other diseases of kidney and ureters (1 source) Renal impairment; Translations: [Disorder of kidney and ureter, unspecified] Episodic Other diseases of veins and lymphatics (20 sources) Peripheral venous insufficiency; Translations: [Venous insufficiency (chronic) (peripheral)] Episodic Other diseases of veins and lymphatics (7 sources) Venous insufficiency (chronic) (peripheral) Episodic Other ear and sense organ disorders (1 source) Unspecified hearing loss, unspecified ear; Translations: [UNSPECIFIED HEARING LOSS, UNSPECIFIED EAR] Onset: 2 Chronic Other ear and sense organ disorders (1 source) Presence of other otological and audiological implants; Translations: [PRESENCE OF OTHER OTOLOGICAL AND AUDIOLOGICAL IMPLANTS] Onset: 2 Chronic Other gastrointestinal disorders (20 sources) Mass of colon; Translations: [Disease of intestine, unspecified] Episodic Other infections; including parasitic (4 sources) Other infectious disease; Translations: [OTHER INFECTIOUS DISEASE] Onset: 3 Episodic Other injuries and conditions due to external causes (4 sources) Other injury of unspecified body region, initial encounter; Translations: [OTHER INJURY UNS BODY REGION INIT] Onset: 3 Episodic Other injuries and conditions due to external causes (20 sources) Foreign body; Translations: [Retained foreign body fragments, unspecified material] Episodic Other injuries and conditions due to external causes (1 source) Retained foreign body fragments, unspecified material Episodic Other non-traumatic joint disorders (2 sources) Pain in unspecified hip Episodic Other nutritional; endocrine; and metabolic disorders (20 sources) Body mass index 30+ - obesity; Translations: [Body mass index (BMI) 30.0-30.9, adult] Chronic Other screening for suspected conditions (not mental disorders or infectious disease) (9 sources) Serum creatinine raised; Translations: [Other specified abnormal findings of blood chemistry] Onset: 3 Episodic Peripheral and visceral atherosclerosis (20 sources) Peripheral vascular disease, unspecified; Translations: [Peripheral vascular disease, unspecified] Onset: 2 Chronic Phlebitis; thrombophlebitis and thromboembolism (2 sources) H/O: Deep vein thrombosis; Translations: [Personal history of other venous thrombosis and embolism] Episodic Residual codes; unclassified (1 source) Do not resuscitate; Translations: [DO NOT RESUSCITATE] Onset: 2 Episodic Residual codes; unclassified (1 source) Patient's other noncompliance with medication regimen; Translations: [PATIENT'S OTHER NONCOMPLIANCE WITH MEDICATION REGIMEN] Onset: 2 Episodic Residual codes; unclassified (20 sources) History of left hip replacement; Translations: [Other specified postprocedural states] Episodic Respiratory failure; insufficiency; arrest (adult) (1 source) Acute respiratory failure; Translations: [Acute respiratory failure, unspecified whether with hypoxia or hypercapnia] Episodic Rheumatoid arthritis and related disease (20 sources) Rheumatoid arthritis; Translations: [Rheumatoid arthritis, unspecified] Onset: 2 Chronic Septicemia (except in labor) (5 sources) Sepsis due to Serratia; Translations: [Sepsis, unspecified organism] Onset: 2 Episodic Skin and subcutaneous tissue infections (1 source) Cellulitis of left lower limb; Translations: [Cellulitis of left lower limb] Episodic Spondylosis; intervertebral disc disorders; other back problems (20 sources) Lumbar spondylosis; Translations: [Spondylosis without myelopathy or radiculopathy, lumbar region] Chronic Substance-related disorders (2 sources) Nicotine dependence, cigarettes, uncomplicated; Translations: [Nicotine dependence] Onset: 2 03-04-2017 Chronic Thyroid disorders (20 sources) Hypothyroidism, unspecified; 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] Onset: 2 Chronic Unclassified (1 source) CONTACT WITH AND (SUSPECTED) EXPOSURE TO COVID-19; Translations: [CONTACT WITH AND (SUSPECTED) EXPOSURE TO COVID-19] Onset: 2 Unclassified (2 sources) DX Onset: 2 Unclassified (1 source) Rheumatoid arthritis without rheumatoid factor, multiple sites; Translations: [Rheumatoid arthritis without rheumatoid factor, multiple sites] Onset: 3 Unclassified (1 source) Pain in right shoulder; Translations: [Pain in right shoulder] Onset: 3 Unclassified (1 source) Pain in right hand; Translations: [Pain in right hand] Onset: 3 Unclassified (2 sources) Infection in Left Hip Onset: 3 Viral infection (1 source) COVID-19; Translations: [COVID-19] Onset: 2 Past or Other Problems Problem Classification Problem Date Documented Da te Episodic/Chronic Bacterial infection; unspecified site (5 sources) Pseudomonas (aeruginosa) (mallei) (pseudomallei) as the cause of diseases classified elsewhere; Translations: [Personal history of Methicillin resistant Staphylococcus aureus infection] Onset: 10-20-2021 Episodic Complications of surgical procedures or medical care (20 sources) Postoperative wound infection; Translations: [Infection following a procedure, other surgical site, initial encounter] Onset: 11-09-2020 11-09-2020 Episodic E Codes: Natural/environment (1 source) Exposure to other specified factors, initial encounter; Translations: [EXPOSURE TO OTHER SPECIFIED FACTORS, INITIAL ENCOUNTER] Onset: 06-06-2021 Episodic Esophageal disorders (4 sources) Esophageal disorders Gangrene (1 source) Gangrene, not elsewhere classified; Translations: [GANGRENE, NOT ELSEWHERE CLASSIFIED] Onset: 10-20-2021 Episodic Open wounds of extremities (8 sources) Unspecified open wound, left hip, subsequent encounter; Translations: [Unspecified open wound, left hip, initial encounter] Onset: 01-01-2022 Episodic Other aftercare (1 source) jail (current) use of aspirin; Translations: [SNF (CURRENT) USE OF ASPIRIN] Onset: 09-24-2021 Episodic Other aftercare (1 source) long term care phlebotomist (current) use of inhaled steroids; Translations: [INTERNATIONAL FIRST OFFICER (CURRENT) USE OF INHALED STEROIDS] Onset: 09-24-2021 Episodic Other aftercare (1 source) long term care phlebotomist (current) use of systemic steroids; Translations: [SNF (CURRENT) USE OF SYSTEMIC STEROIDS] Onset: 09-24-2021 Episodic Other aftercare (1 source) Other terminal gauger supervisor (current) drug therapy; Translations: [OTHER SNF (CURRENT) DRUG THERAPY] Onset: 06-06-2021 Episodic Other bone disease and musculoskeletal deformities (1 source) Other specified disorders of bone, thigh Onset: 03-29-2021 Resolved: 03-29-2021 Episodic Other infections; including parasitic (2 sources) Personal history of other infectious and parasitic diseases; Translations: [Personal history of other infectious and parasitic diseases] Onset: 08-20-2022 Episodic Residual codes; unclassified (1 source) Family history of malignant neoplasm, unspecified; Translations: [FAMILY HISTORY OF MALIGNANT NEOPLASM, UNSPECIFIED] Onset: 10-20-2021 Episodic Residual codes; unclassified (1 source) Presence of other specified devices; Translations: [PRESENCE OF OTHER SPECIFIED DEVICES] Onset: 10-20-2021 Episodic Residual codes; unclassified (1 source) Tobacco use; Translations: [TOBACCO USE] Onset: 06-06-2021 Episodic Residual codes; unclassified (2 sources) Other specified postprocedural states; Translations: [Other specified postprocedural states] Onset: 08-20-2022 Episodic Results Test Name Value Interpretation Reference Range Facility 36on 05-15-2023 36 Home number is not in service [facility] 36 I called the home cristobal hardin and it's still disconnected [facility] 36on 05-14-2023 36 The number I called for the pt is not in service. Cell number goes to a clinical nursing intern that she is no longer in. [facility] 36on 05-13-2023 36 Pt called and would like a refill of Bactrim and Augmentin to be sent to [facility] pharmacy in [place], [place] please [facility] Orders Onlyon 05-13-2023 Orders Only [id number] Neda Gonzalez 1945 F Date Provider Department Center 05/13/2023 [facility] INF George Heal Family History Family history unknown: Yes [facility] C-Reactive Proteinon 023 C-Reactive Protein 2.5 mg/dL High 0.0-0.5 [facility] Comment on above: Result Comment: PERF ORMED BY: [place] [address] PATHOLOGIST WARP TENSION TESTER SAMIR TIMMONS M.D. Performed By: #### H BSAB, HBCAB, HBSAG, HCV RX PCR #### [facility] , #### CREAT, CRP, ESR, CBC, HEPATIC #### [facility] [address] [place] [address] Complete Blood Count Auto Di ffon 02-26-2023 Basophils (Bld) [#/Vol] 0.0 10*3/uL Normal 0.0-0.2 [facility] Comment on above: Performed By: #### H BSAB, HBCAB, HBSAG, HCV RX PCR #### [facility] , #### CREAT, CRP, ESR, CBC, HEPATIC #### [facility] [address] [place] [address] [place] Basophils/100 WBC (Bld) 0.7 % Normal . [facility] Comment on above: Performed By: #### H BSAB, HBCAB, HBSAG, HCV RX PCR #### [facility] , #### CREAT, CRP, ESR, CBC, HEPATIC #### [address] Eosinophils (Bld) [#/Vol] 0.2 10*3/uL Normal 0.0-0.45 [facility] Comment on above: Performed By: #### H BSAB, HBCAB, HBSAG, HCV RX PCR #### [facility] , #### CREAT, CRP, ESR, CBC, HEPATIC #### [address] Eosinophils/100 WBC (Bld) 3.8 % Normal . [facility] Comment on above: Performed By: #### H BSAB, HBCAB, HBSAG, HCV RX PCR #### [facility] , #### CREAT, CRP, ESR, CBC, HEPATIC #### [address] Erythrocyte distribution width (RBC) [Ratio] 15.9 % High 11.9-15.3 [facility] Comment on above: Performed By: #### H BSAB, HBCAB, HBSAG, HCV RX PCR #### [facility] , #### CREAT, CRP, ESR, CBC, HEPATIC #### [address] Hematocrit (Bld) [Volume fraction] 34.2 % Normal 34.0-46.4 [facility] Comment on above: Performed By: #### H BSAB, HBCAB, HBSAG, HCV RX PCR #### [facility] , #### CREAT, CRP, ESR, CBC, HEPATIC #### [address] Hemoglobin (Bld) [Mass/Vol] 11.1 g/dL Low 11.8-15.4 [facility] Comment on above: Performed By: #### H BSAB, HBCAB, HBSAG, HCV RX PCR #### [facility] , #### CREAT, CRP, ESR, CBC, HEPATIC #### [address] Lymphocytes (Bld) [#/Vol] 1.1 10*3/uL Normal 1.00-4.8 [facility] Comment on above: Performed By: #### H BSAB, HBCAB, HBSAG, HCV RX PCR #### [facility] , #### CREAT, CRP, ESR, CBC, HEPATIC #### [address] Lymphocytes/100 WBC (Bld) 19.4 % Normal . [facility] Comment on above: Performed By: #### H BSAB, HBCAB, HBSAG, HCV RX PCR #### [facility] , #### CREAT, CRP, ESR, CBC, HEPATIC #### [address] MCH (RBC) [Entitic mass] 29.0 pg Normal 24.7-34.3 [facility] Comment on above: Performed By: #### H BSAB, HBCAB, HBSAG, HCV RX PCR #### [facility] , #### CREAT, CRP, ESR, CBC, HEPATIC #### [address] MCV (RBC) [Entitic vol] 89.5 fL Normal 80-100 [facility] Comment on above: Performed By: #### H BSAB, HBCAB, HBSAG, HCV RX PCR #### [facility] , #### CREAT, CRP, ESR, CBC, HEPATIC #### [address] Mean Corpuscular HGB Conc 32.4 g/dL Normal 32.0-35.0 [facility] Comment on above: Performed By: #### H BSAB, HBCAB, HBSAG, HCV RX PCR #### [facility] , #### CREAT, CRP, ESR, CBC, HEPATIC #### [place] [address] [place] Monocytes (Bld) [#/Vol] 0.7 10*3/uL Normal 0.0-0.8 [facility] Comment on above: Performed By: #### H BSAB, HBCAB, HBSAG, HCV RX PCR #### [facility] , #### CREAT, CRP, ESR, CBC, HEPATIC #### [place] [address] [place] Monocytes/100 WBC (Bld) 12.6 % Normal . [facility] Comment on above: Performed By: #### H BSAB, HBCAB, HBSAG, HCV RX PCR #### [facility] , #### CREAT, CRP, ESR, CBC, HEPATIC #### [place] [address] [place] Neutrophils (Bld) [#/Vol] 3.5 10*3/uL Normal 1.8-7.7 [facility] Comment on above: Performed By: #### H BSAB, HBCAB, HBSAG, HCV RX PCR #### [facility] , #### CREAT, CRP, ESR, CBC, HEPATIC #### [place] [address] [place] Neutrophils/100 WBC (Bld) 63.5 % Normal . [facility] Comment on above: Performed By: #### H BSAB, HBCAB, HBSAG, HCV RX PCR #### [facility] , #### CREAT, CRP, ESR, CBC, HEPATIC #### [facility] [address] [place] [address] [place] NRBC% 0.1 /100{WBC} Normal 0-0.5 [facility] Comment on above: Performed By: #### H BSAB, HBCAB, HBSAG, HCV RX PCR #### [facility] , #### CREAT, CRP, ESR, CBC, HEPATIC #### [facility] [address] [place] [address] Platelet mean volume (Bld) [Entitic vol] 7.5 fL Normal 6.3-10.7 [facility] Comment on above: Performed By: #### H BSAB, HBCAB, HBSAG, HCV RX PCR #### [facility] , #### CREAT, CRP, ESR, CBC, HEPATIC #### [address] Platelets (Bld) [#/Vol] 305 10*3/uL Normal 150-450 [facility] Comment on above: Performed By: #### H BSAB, HBCAB, HBSAG, HCV RX PCR #### [facility] , #### CREAT, CRP, ESR, CBC, HEPATIC #### [address] RBC (Bld) [#/Vol] 3.82 10*6/uL Normal 3.60-5.00 [facility] Comment on above: Performed By: #### H BSAB, HBCAB, HBSAG, HCV RX PCR #### [facility] , #### CREAT, CRP, ESR, CBC, HEPATIC #### [address] WBC (Bld) [#/Vol] 5.5 10*3/uL Normal 3.8-11.6 [facility] Comment on above: Performed By: #### H BSAB, HBCAB, HBSAG, HCV RX PCR #### [facility] , #### CREAT, CRP, ESR, CBC, HEPATIC #### [facility] [address] [place] [address] Creatinineon 02-26-2023 Creatinine [Mass/Vol] 1.37 mg/dL High 0.60-1.20 [facility] Comment on above: Performed By: #### H BSAB, HBCAB, HBSAG, HCV RX PCR #### [facility] , #### CREAT, CRP, ESR, CBC, HEPATIC #### [facility] [address] GFR/1.73 sq M.predicted MDRD (S/P/Bld) [Vol rate/Area] 39.522 mL/min/{1.73_m2} Normal [facility] Comment on above: Performed By: #### H BSAB, HBCAB, HBSAG, HCV RX PCR #### [facility] , #### CREAT, CRP, ESR, CBC, HEPATIC #### [facility] [address] Erythrocyte Sedimentation Ra tristan 02-26-2023 ESR (Bld) [Velocity] 67 mm/h High 0-29 [facility] Comment on above: Result Comment: PERF ORMED BY: [place] [address] PATHOLOGIST WARP TENSION TESTER SAMIR TIMMONS M.D. Performed By: #### H BSAB, HBCAB, HBSAG, HCV RX PCR #### [facility] , #### CREAT, CRP, ESR, CBC, HEPATIC #### [facility] [address] Hep C Ab wRfx to Qnt PCRon 1 Hepatitis C Virus Antibody Non-Reactive Normal Non Reactive [facility] Comment on above: Performed By: #### H BSAB, HBCAB, HBSAG, HCV RX PCR #### [facility] , #### CREAT, CRP, ESR, CBC, HEPATIC #### [facility] [address] [place] [address] Interpretation Hepatitis C Normal . [facility] Comment on above: Result Comment: Not infected with HCV unless early or acute infection is suspected (which may be delayed in an immunocompromised individual), or other evidence exists to indicate HCV infection. Performed By: #### H BSAB, HBCAB, HBSAG, HCV RX PCR #### [facility] , #### CREAT, CRP, ESR, CBC, HEPATIC #### [facility] [address] [place] [address] Hepatic Panelon 02-26-2023 Albumin [Mass/Vol] 3.5 g/dL Normal 3.5-5.7 [facility] Comment on above: Performed By: #### H BSAB, HBCAB, HBSAG, HCV RX PCR #### [facility] , #### CREAT, CRP, ESR, CBC, HEPATIC #### [address] Albumin/Globulin [Mass ratio] 1.5 {ratio} Normal [facility] Comment on above: Performed By: #### H BSAB, HBCAB, HBSAG, HCV RX PCR #### [facility] , #### CREAT, CRP, ESR, CBC, HEPATIC #### [address] ALP [Catalytic activity/Vol] 162 U/L High 34-104 [facility] Comment on above: Performed By: #### H BSAB, HBCAB, HBSAG, HCV RX PCR #### [facility] , #### CREAT, CRP, ESR, CBC, HEPATIC #### [facility] [address] [place] [address] ALT [Catalytic activity/Vol] 18 U/L Normal 7-52 [facility] Comment on above: Performed By: #### H BSAB, HBCAB, HBSAG, HCV RX PCR #### [facility] , #### CREAT, CRP, ESR, CBC, HEPATIC #### [place] [address] [place] AST [Catalytic activity/Vol] 20 U/L Normal 13-39 [facility] Comment on above: Performed By: #### H BSAB, HBCAB, HBSAG, HCV RX PCR #### [facility] , #### CREAT, CRP, ESR, CBC, HEPATIC #### [facility] [address] [place] [address] [place] Bilirubin [Mass/Vol] 0.2 mg/dL Low 0.3-1.0 [facility] Comment on above: Performed By: #### H BSAB, HBCAB, HBSAG, HCV RX PCR #### [facility] , #### CREAT, CRP, ESR, CBC, HEPATIC #### [address] Bilirubin,Indirect 0.2 mg/dL Normal [facility] Comment on above: Performed By: #### H BSAB, HBCAB, HBSAG, HCV RX PCR #### [facility] , #### CREAT, CRP, ESR, CBC, HEPATIC #### [address] Bilirubin.indirect [Mass/Vol] 0.00 mg/dL Low 0.03-0.18 [facility] Comment on above: Result Comment: If t he DBIL is less than 0.1, IBIL is not able to be calculated. Performed By: #### H BSAB, HBCAB, HBSAG, HCV RX PCR #### [facility] , #### CREAT, CRP, ESR, CBC, HEPATIC #### [address] Globulin (S) [Mass/Vol] 2.3 g/dL [facility] Comment on above: Performed By: #### H BSAB, HBCAB, HBSAG, HCV RX PCR #### [facility] , #### CREAT, CRP, ESR, CBC, HEPATIC #### [facility] [address] [place] [address] Protein [Mass/Vol] 5.8 g/dL Low 6.4-8.9 [facility] Comment on above: Performed By: #### H BSAB, HBCAB, HBSAG, HCV RX PCR #### [facility] , #### CREAT, CRP, ESR, CBC, HEPATIC #### [address] Hepatitis B Core Antibodyon 02-26-2023 Hepatitis B Core Antibody Negative Normal Negative [facility] Comment on above: Result Comment: Perf ormed at: - [facility] [address] [id number] Radio Equipment Installer: Jeremiah Martin PhD, Phone: [phone] Performed By: #### H BSAB, HBCAB, HBSAG, HCV RX PCR #### [facility] , #### CREAT, CRP, ESR, CBC, HEPATIC #### [facility] [address] Hepatitis B Surface Antibody on 02-26-2023 Hepatitis B Surface Antibody Non-Reactive Normal . [facility] Comment on above: Result Comment: Non Reactive: Inconsistent with immunity, less than 10 mIU/mL Reactive: Consistent with immunity, greater than 9.9 mIU/mL Performed By: #### H BSAB, HBCAB, HBSAG, HCV RX PCR #### [facility] , #### CREAT, CRP, ESR, CBC, HEPATIC #### [facility] [address] [place] [address] Hepatitis B Surface Antigeno n 02-26-2023 HBsAg Screen Negative Normal Negative [facility] Comment on above: Result Comment: PERF ORMED BY: [place] [address] PATHOLOGIST WARP TENSION TESTER SAMIR TIMMONS M.D. Performed By: #### H BSAB, HBCAB, HBSAG, HCV RX PCR #### [facility] , #### CREAT, CRP, ESR, CBC, HEPATIC #### [facility] [address] [place] [address] Follow-Upon 02-18-2023 Follow-Up Normal [facility] Erroneous Encounteron 2022 Erroneous Encounter Normal [facility] Follow-Upon 11-12-2022 Follow-Up Normal [facility] 30on 11-09-2022 30 Normal [facility] BASIC METABOLIC PANELon 10-24 Anion gap [Moles/Vol] 10 mmol/L Normal 7-20 [facility] Comment on above: Performed By: #### L [id number] ####[facility] ([facility])[address] [place] [address] Calcium [Mass/Vol] 7.5 mg/dL Low 8.6-10.3 [facility] Comment on above: Performed By: #### L [id number] ####[facility] ([facility])[address] [place] [address] Chloride [Moles/Vol] 108 mmol/L High 98-107 [facility] Comment on above: Performed By: #### L [id number] ####[facility] ([facility])[address] [place] [address] CO2 [Moles/Vol] 25 mmol/L Normal 21-31 [facility] Comment on above: Performed By: #### L [id number] ####[facility] ([facility])[address] [place] [address] Creatinine [Mass/Vol] 1.21 mg/dL High 0.60-1.20 [facility] Comment on above: Performed By: #### L [id number] ####[facility] ([facility])[address] [place] [address] GLOMERULAR FILTRATION RATE ML/MIN/1.73 SQ M.PREDICTED 45.9 mL/min/1.73m*2 Low >60.0 [facility] Comment on above: Result Comment: [facility]???s estimated glomerular filtration rate (eGFR) will no longer include consideration of race in its calculation. The National Kidney Foundation???s eGFR Task Force developed new recommendations for the estimation of the glomerular filtration rate in the [place] They recommend immediate implementation of the new equation refit without the race variable in all laboratories because the calculation does not include race. In addition to not including race in the calculation and reporting, it included diversity in its development, and has acceptable performance characteristics and potential consequences that do not disproportionately affect any one group of individuals. Performed By: #### L [id number] ####[facility] [place] [address] Glucose [Mass/Vol] 73 mg/dL Normal 70-100 [facility] Comment on above: Performed By: #### L [id number] ####[facility] [place] [address] Potassium [Moles/Vol] 3.8 mmol/L Normal 3.5-5.1 [facility] Comment on above: Performed By: #### L [id number] ####[facility] [place] [address] Sodium [Moles/Vol] 139 mmol/L Normal 136-145 [facility] Comment on above: Performed By: #### L [id number] ####[facility] ([facility])[address] [place] [address] Urea nitrogen [Mass/Vol] 14 mg/dL Normal 7-25 [facility] Comment on above: Performed By: #### L [id number] ####[facility] ([facility])[address] [place] [address] UREA NITROGEN/CREATININE (MASS RATIO) IN SER/PLAS 11.6 Normal [facility] Comment on above: Performed By: #### L [id number] ####[facility] ([facility])[address] [place] [address] CBCon 11-09-2022 Erythrocyte distribution width (RBC) [Ratio] 15.9 % High 11.5-15.0 [facility] Comment on above: Performed By: #### L [id number] ####[facility] ([facility])[address] [place] [address] ERYTHROCYTE MEAN CORPUSCULAR HEMOGLOBIN CONCENTRATION (G/DL) BY AUTOMATED 31.2 g/dL Low 32.0-35.0 [facility] Comment on above: Performed By: #### L [id number] ####[facility] [place] [address] Hematocrit (Bld) [Volume fraction] 26.6 % Low 36.0-48.0 [facility] Comment on above: Performed By: #### L [id number] ####[facility] [place] [address] Hemoglobin (Bld) [Mass/Vol] 8.3 g/dL Low 12.0-15.0 [facility] Comment on above: Performed By: #### L [id number] ####[facility] ([facility])[address] [place] [address] MCH (RBC) [Entitic mass] 28.3 pg Normal 27.0-33.0 [facility] Comment on above: Performed By: #### L [id number] ####[facility] ([facility])[address] [place] [address] MCV (RBC) [Entitic vol] 90.8 fL Normal 82.0-98.0 [facility] Comment on above: Performed By: #### L [id number] ####[facility] ([facility])[address] [place] [address] PLATELETS (10*3/UL) IN BLOOD AUTOMATED COUNT 504 10*3/uL High 150-400 [facility] Comment on above: Performed By: #### L [id number] ####[facility] [place] [address] RBC (Bld) [#/Vol] 2.93 10*6/uL Low 3.80-5.00 [facility] Comment on above: Performed By: #### L [id number] ####[facility] [place] [address] WBC (Bld) [#/Vol] 12.38 10*3/uL High 4.00-10.60 [facility] Comment on above: Performed By: #### L [id number] ####[facility] ([facility])[address] [place] [address] NURSNOTEon 11-09-2022 NURSNOTE Report called to [facility]. Normal [facility] 30on 11-08-2022 30 Normal [facility] 30 The patient is Moder ately Stable - Low risk of patient condition declining or worsening The patient's goals for the shift include comfort The clinical goals for the shift include comfort Normal [facility] BASIC METABOLIC PANELon 10-24 Anion gap [Moles/Vol] 11 mmol/L Normal 7-20 [facility] Comment on above: Performed By: #### L [id number] ####[facility] ([facility])[address] [facility] [place] [address] Calcium [Mass/Vol] 7.4 mg/dL Low 8.6-10.3 [facility] Comment on above: Performed By: #### L [id number] ####[facility] ([facility])[address] [place] [address] Chloride [Moles/Vol] 109 mmol/L High 98-107 [facility] Comment on above: Performed By: #### L [id number] ####[facility] ([facility])[address] [place] [address] CO2 [Moles/Vol] 24 mmol/L Normal 21-31 [facility] Comment on above: Performed By: #### L [id number] ####[facility] ([facility])[address] [place] [address] Creatinine [Mass/Vol] 1.18 mg/dL Normal 0.60-1.20 [facility] Comment on above: Performed By: #### L [id number] ####[facility] ([facility])[address] [place] [address] GLOMERULAR FILTRATION RATE ML/MIN/1.73 SQ M.PREDICTED 47.3 mL/min/1.73m*2 Low >60.0 [facility] Comment on above: Result Comment: [facility]???s estimated glomerular filtration rate (eGFR) will no longer include consideration of race in its calculation. The National Kidney Foundation???s eGFR Task Force developed new recommendations for the estimation of the glomerular filtration rate in the [place] They recommend immediate implementation of the new equation refit without the race variable in all laboratories because the calculation does not include race. In addition to not including race in the calculation and reporting, it included diversity in its development, and has acceptable performance characteristics and potential consequences that do not disproportionately affect any one group of individuals. Performed By: #### L [id number] ####[facility] ([facility])[address] [place] [address] Glucose [Mass/Vol] 86 mg/dL Normal 70-100 [facility] Comment on above: Performed By: #### L [id number] ####[facility] ([facility])[address] [place] [address] Potassium [Moles/Vol] 3.8 mmol/L Normal 3.5-5.1 [facility] Comment on above: Performed By: #### L [id number] ####[facility] ([facility])[address] [place] [address] Sodium [Moles/Vol] 140 mmol/L Normal 136-145 [facility] Comment on above: Performed By: #### L [id number] ####[facility] ([facility])[address] [place] [address] Urea nitrogen [Mass/Vol] 16 mg/dL Normal 7-25 [facility] Comment on above: Performed By: #### L [id number] ####[facility] ([facility])[address] [place] [address] UREA NITROGEN/CREATININE (MASS RATIO) IN SER/PLAS 13.6 Normal [facility] Comment on above: Performed By: #### L [id number] ####[facility] ([facility])[address] [place] [address] CBCon 11-08-2022 Erythrocyte distribution width (RBC) [Ratio] 15.9 % High 11.5-15.0 [facility] Comment on above: Performed By: #### L [id number] ####[facility] [place] [address] ERYTHROCYTE MEAN CORPUSCULAR HEMOGLOBIN CONCENTRATION (G/DL) BY AUTOMATED 31.5 g/dL Low 32.0-35.0 [facility] Comment on above: Performed By: #### L [id number] ####[facility] ([facility])[address] [place] [address] Hematocrit (Bld) [Volume fraction] 26.7 % Low 36.0-48.0 [facility] Comment on above: Performed By: #### L [id number] ####[facility] ([facility])[address] [place] [address] Hemoglobin (Bld) [Mass/Vol] 8.4 g/dL Low 12.0-15.0 [facility] Comment on above: Performed By: #### L [id number] ####[facility] ([facility])[address] [place] [address] MCH (RBC) [Entitic mass] 28.6 pg Normal 27.0-33.0 [facility] Comment on above: Performed By: #### L [id number] ####[facility] ([facility])[address] [place] [address] MCV (RBC) [Entitic vol] 90.8 fL Normal 82.0-98.0 [facility] Comment on above: Performed By: #### L [id number] ####[facility] ([facility])[address] [place] [address] PLATELETS (10*3/UL) IN BLOOD AUTOMATED COUNT 473 10*3/uL High 150-400 [facility] Comment on above: Performed By: #### L [id number] ####[facility] ([facility])[address] [place] [address] RBC (Bld) [#/Vol] 2.94 10*6/uL Low 3.80-5.00 [facility] Comment on above: Performed By: #### L [id number] ####[facility] [place] [address] WBC (Bld) [#/Vol] 14.84 10*3/uL High 4.00-10.60 [facility] Comment on above: Performed By: #### L [id number] ####[facility] ([facility])[address] [place] [address] DSon 11-08-2022 DS Normal [facility] MAGNESIUMon 11-08-2022 Magnesium [Mass/Vol] 1.9 mg/dL Normal 1.9-2.7 [facility] Comment on above: Performed By: #### L [id number] ####[facility] ([facility])[address] [place] [address] 30on 11-07-2022 30 Normal [facility] 30 Normal [facility] 30 The patient is Moder ately Stable - Low risk of patient condition declining or worsening The patient's goals for the shift include comfort The clinical goals for the shift include stable vitals Normal [facility] BASIC METABOLIC PANELon 10-24 Anion gap [Moles/Vol] 11 mmol/L Normal 7-20 [facility] Comment on above: Performed By: #### L [id number] ####[facility] ([facility])[address] [place] [address] Calcium [Mass/Vol] 7.4 mg/dL Low 8.6-10.3 [facility] Comment on above: Performed By: #### L [id number] ####[facility] ([facility])[address] [place] [address] Chloride [Moles/Vol] 109 mmol/L High 98-107 [facility] Comment on above: Performed By: #### L [id number] ####[facility] ([facility])[address] [place] [address] CO2 [Moles/Vol] 23 mmol/L Normal 21-31 [facility] Comment on above: Performed By: #### L [id number] ####[facility] ([facility])[address] [place] [address] Creatinine [Mass/Vol] 1.28 mg/dL High 0.60-1.20 [facility] Comment on above: Performed By: #### L [id number] ####[facility] ([facility])[address] [facility] [place] [address] GLOMERULAR FILTRATION RATE ML/MIN/1.73 SQ M.PREDICTED 42.9 mL/min/1.73m*2 Low >60.0 [facility] Comment on above: Result Comment: The [facility]???s estimated glomerular filtration rate (eGFR) will no longer include consideration of race in its calculation. The National Kidney Foundation???s eGFR Task Force developed new recommendations for the estimation of the glomerular filtration rate in the [place] They recommend immediate implementation of the new equation refit without the race variable in all laboratories because the calculation does not include race. In addition to not including race in the calculation and reporting, it included diversity in its development, and has acceptable performance characteristics and potential consequences that do not disproportionately affect any one group of individuals. Performed By: #### L [id number] ####[facility] ([facility])[address] [place] [address] Glucose [Mass/Vol] 90 mg/dL Normal 70-100 [facility] Comment on above: Performed By: #### L [id number] ####[facility] ([facility])[address] [place] [address] Potassium [Moles/Vol] 3.6 mmol/L Normal 3.5-5.1 [facility] Comment on above: Performed By: #### L [id number] ####[facility] ([facility])[address] [place] [address] Sodium [Moles/Vol] 139 mmol/L Normal 136-145 [facility] Comment on above: Performed By: #### L [id number] ####[facility] ([facility])[address] [place] [address] Urea nitrogen [Mass/Vol] 16 mg/dL Normal 7-25 [facility] Comment on above: Performed By: #### L [id number] ####[facility] ([facility])[address] [address] UREA NITROGEN/CREATININE (MASS RATIO) IN SER/PLAS 12.5 Normal [facility] Comment on above: Performed By: #### L [id number] ####[facility] ([facility])[address] [place] [address] CBCon 11-07-2022 Erythrocyte distribution width (RBC) [Ratio] 15.8 % High 11.5-15.0 [facility] Comment on above: Performed By: #### L [id number] ####[facility] ([facility])[address] [place] [address] ERYTHROCYTE MEAN CORPUSCULAR HEMOGLOBIN CONCENTRATION (G/DL) BY AUTOMATED 31.7 g/dL Low 32.0-35.0 [facility] Comment on above: Performed By: #### L [id number] ####[facility] ([facility])[address] [place] [address] Hematocrit (Bld) [Volume fraction] 28.7 % Low 36.0-48.0 [facility] Comment on above: Performed By: #### L [id number] ####[facility] ([facility])[address] [place] [address] Hemoglobin (Bld) [Mass/Vol] 9.1 g/dL Low 12.0-15.0 [facility] Comment on above: Performed By: #### L [id number] ####[facility] ([facility])[address] [place] [address] MCH (RBC) [Entitic mass] 28.6 pg Normal 27.0-33.0 [facility] Comment on above: Performed By: #### L [id number] ####[facility] ([facility])[address] [place] [address] MCV (RBC) [Entitic vol] 90.3 fL Normal 82.0-98.0 [facility] Comment on above: Performed By: #### L [id number] ####[facility] [place] [address] PLATELETS (10*3/UL) IN BLOOD AUTOMATED COUNT 405 10*3/uL High 150-400 [facility] Comment on above: Performed By: #### L [id number] ####[facility] ([facility])[address] [place] [address] RBC (Bld) [#/Vol] 3.18 10*6/uL Low 3.80-5.00 [facility] Comment on above: Performed By: #### L [id number] ####[facility] ([facility])[address] [place] [address] WBC (Bld) [#/Vol] 19.23 10*3/uL High 4.00-10.60 [facility] Comment on above: Performed By: #### L [id number] ####[facility] ([facility])[address] [place] [address] MAGNESIUMon 11-07-2022 Magnesium [Mass/Vol] 2.2 mg/dL Normal 1.9-2.7 [facility] Comment on above: Performed By: #### L [id number] ####[facility] ([facility])[address] [place] [address] 30on 11-06-2022 30 Normal [facility] 30 Normal [facility] BASIC METABOLIC PANELon 10-24 Anion gap [Moles/Vol] 8 mmol/L Normal 7-20 [facility] Comment on above: Performed By: #### L [id number] ####[facility] ([facility])[address] [place] [address] Calcium [Mass/Vol] 7.5 mg/dL Low 8.6-10.3 [facility] Comment on above: Performed By: #### L [id number] ####[facility] ([facility])[address] [place] [address] Chloride [Moles/Vol] 109 mmol/L High 98-107 [facility] Comment on above: Performed By: #### L [id number] ####[facility] ([facility])[address] [place] [address] CO2 [Moles/Vol] 24 mmol/L Normal 21-31 [facility] Comment on above: Performed By: #### L [id number] ####[facility] ([facility])[address] [place] [address] Creatinine [Mass/Vol] 1.04 mg/dL Normal 0.60-1.20 [facility] Comment on above: Performed By: #### L [id number] ####[facility] ([facility])[address] [place] [address] GLOMERULAR FILTRATION RATE ML/MIN/1.73 SQ M.PREDICTED 55.0 mL/min/1.73m*2 Low >60.0 [facility] Comment on above: Result Comment: The [facility]???s estimated glomerular filtration rate (eGFR) will no longer include consideration of race in its calculation. The National Kidney Foundation???s eGFR Task Force developed new recommendations for the estimation of the glomerular filtration rate in the [place] They recommend immediate implementation of the new equation refit without the race variable in all laboratories because the calculation does not include race. In addition to not including race in the calculation and reporting, it included diversity in its development, and has acceptable performance characteristics and potential consequences that do not disproportionately affect any one group of individuals. Performed By: #### L [id number] ####[facility] ([facility])[address] [place] [address] Glucose [Mass/Vol] 86 mg/dL Normal 70-100 [facility] Comment on above: Performed By: #### L [id number] ####[facility] ([facility])[address] [place] [address] Potassium [Moles/Vol] 4.4 mmol/L Normal 3.5-5.1 [facility] Comment on above: Performed By: #### L [id number] ####[facility] ([facility])[address] [place] [address] Sodium [Moles/Vol] 137 mmol/L Normal 136-145 [facility] Comment on above: Performed By: #### L [id number] ####[facility] ([facility])[address] [place] [address] Urea nitrogen [Mass/Vol] 12 mg/dL Normal 7-25 [facility] Comment on above: Performed By: #### L [id number] ####[facility] [place] [address] UREA NITROGEN/CREATININE (MASS RATIO) IN SER/PLAS 11.5 Normal [facility] Comment on above: Performed By: #### L [id number] ####[facility] [place] [address] CBCon 11-06-2022 Erythrocyte distribution width (RBC) [Ratio] 15.9 % High 11.5-15.0 [facility] Comment on above: Performed By: #### L [id number] ####[facility] ([facility])[address] [place] [address] ERYTHROCYTE MEAN CORPUSCULAR HEMOGLOBIN CONCENTRATION (G/DL) BY AUTOMATED 31.0 g/dL Low 32.0-35.0 [facility] Comment on above: Performed By: #### L [id number] ####[facility] [place] [address] Hematocrit (Bld) [Volume fraction] 26.8 % Low 36.0-48.0 [facility] Comment on above: Performed By: #### L [id number] ####[facility] [place] [address] Hemoglobin (Bld) [Mass/Vol] 8.3 g/dL Low 12.0-15.0 [facility] Comment on above: Performed By: #### L [id number] ####[facility] ([facility])[address] [place] [address] MCH (RBC) [Entitic mass] 27.9 pg Normal 27.0-33.0 [facility] Comment on above: Performed By: #### L [id number] ####[facility] ([facility])[address] [place] [address] MCV (RBC) [Entitic vol] 90.2 fL Normal 82.0-98.0 [facility] Comment on above: Performed By: #### L [id number] ####[facility] ([facility])[address] [place] [address] PLATELETS (10*3/UL) IN BLOOD AUTOMATED COUNT 311 10*3/uL Normal 150-400 [facility] Comment on above: Performed By: #### L [id number] ####[facility] ([facility])[address] [place] [address] RBC (Bld) [#/Vol] 2.97 10*6/uL Low 3.80-5.00 [facility] Comment on above: Performed By: #### L [id number] ####[facility] ([facility])[address] [place] [address] WBC (Bld) [#/Vol] 17.12 10*3/uL High 4.00-10.60 [facility] Comment on above: Performed By: #### L [id number] ####[facility] ([facility])[address] [place] [address] CKon 11-06-2022 CREATINE KINASE (U/L) IN SER/PLAS 18.0 U/L Low 30.0-223.0 [facility] Comment on above: Performed By: #### L [id number] ####[facility] ([facility])[address] [place] [address] MAGNESIUMon 11-06-2022 Magnesium [Mass/Vol] 1.6 mg/dL Low 1.9-2.7 [facility] Comment on above: Performed By: #### L [id number] ####[facility] ([facility])[address] [place] [address] POCT GLUCOSE METER UNSOLICIT ED RESULTSon 11-06-2022 Glucose [Mass/Vol] 147 mg/dL High 70-105 [facility] Comment on above: Result Comment: [email or web address] Performed By: #### L [id number] ####[facility] ([facility])[address] [place] [address] Glucose [Mass/Vol] 93 mg/dL Normal 70-105 [facility] Comment on above: Result Comment: [email or web address] Performed By: #### L [id number] ####[facility] ([facility])[address] [place] [address] [id number] 11-05-2022 [id number] Normal [facility] 30on 11-05-2022 30 Normal [facility] 30 Normal [facility] ANESon 11-05-2022 ANES Normal [facility] APTTon 11-05-2022 ACTIVATED PARTIAL THROMBOPLASTIN TIME IN PPP BY COAGULATION ASSAY 32.5 Seconds Normal 25.0-35.0 [facility] Comment on above: Result Comment: Clin ical significance of the APTT is questionable in the presence of heparin. Performed By: #### L [id number] ####[facility] ([facility])[address] [place] [address] BASIC METABOLIC PANELon 10-24 Anion gap [Moles/Vol] 10 mmol/L Normal 7-20 [facility] Comment on above: Performed By: #### L [id number] ####[facility] ([facility])[address] [place] [address] Calcium [Mass/Vol] 7.8 mg/dL Low 8.6-10.3 [facility] Comment on above: Performed By: #### L [id number] ####[facility] ([facility])[address] [place] [address] Chloride [Moles/Vol] 108 mmol/L High 98-107 [facility] Comment on above: Performed By: #### L [id number] ####[facility] ([facility])[address] [place] [address] CO2 [Moles/Vol] 23 mmol/L Normal 21-31 [facility] Comment on above: Performed By: #### L [id number] ####[facility] ([facility])[address] [place] [address] Creatinine [Mass/Vol] 0.99 mg/dL Normal 0.60-1.20 [facility] Comment on above: Performed By: #### L [id number] ####[facility] ([facility])[address] [place] [address] GLOMERULAR FILTRATION RATE ML/MIN/1.73 SQ M.PREDICTED 58.4 mL/min/1.73m*2 Low >60.0 [facility] Comment on above: Result Comment: The [facility]???s estimated glomerular filtration rate (eGFR) will no longer include consideration of race in its calculation. The National Kidney Foundation???s eGFR Task Force developed new recommendations for the estimation of the glomerular filtration rate in the [place] They recommend immediate implementation of the new equation refit without the race variable in all laboratories because the calculation does not include race. In addition to not including race in the calculation and reporting, it included diversity in its development, and has acceptable performance characteristics and potential consequences that do not disproportionately affect any one group of individuals. Performed By: #### L [id number] ####[facility] ([facility])[address] [place] [address] Glucose [Mass/Vol] 78 mg/dL Normal 70-100 [facility] Comment on above: Performed By: #### L [id number] ####[facility] ([facility])[address] [place] [address] Potassium [Moles/Vol] 4.0 mmol/L Normal 3.5-5.1 [facility] Comment on above: Performed By: #### L [id number] ####[facility] ([facility])[address] [place] [address] Sodium [Moles/Vol] 137 mmol/L Normal 136-145 [facility] Comment on above: Performed By: #### L [id number] ####[facility] ([facility])[address] [place] [address] Urea nitrogen [Mass/Vol] 12 mg/dL Normal 7-25 [facility] Comment on above: Performed By: #### L [id number] ####[facility] ([facility])[address] [place] [address] UREA NITROGEN/CREATININE (MASS RATIO) IN SER/PLAS 12.1 Normal [facility] Comment on above: Performed By: #### L [id number] ####[facility] ([facility])[address] [place] [address] CBCon 11-05-2022 Erythrocyte distribution width (RBC) [Ratio] 15.3 % High 11.5-15.0 [facility] Comment on above: Performed By: #### L [id number] ####[facility] ([facility])[address] [place] [address] ERYTHROCYTE MEAN CORPUSCULAR HEMOGLOBIN CONCENTRATION (G/DL) BY AUTOMATED 29.5 g/dL Low 32.0-35.0 [facility] Comment on above: Performed By: #### L [id number] ####[facility] ([facility])[address] [place] [address] Hematocrit (Bld) [Volume fraction] 27.8 % Low 36.0-48.0 [facility] Comment on above: Performed By: #### L [id number] ####[facility] ([facility])[address] [place] [address] Hemoglobin (Bld) [Mass/Vol] 8.2 g/dL Low 12.0-15.0 [facility] Comment on above: Performed By: #### L [id number] ####[facility] ([facility])[address] [place] [address] MCH (RBC) [Entitic mass] 27.9 pg Normal 27.0-33.0 [facility] Comment on above: Performed By: #### L [id number] ####[facility] ([facility])[address] [place] [address] MCV (RBC) [Entitic vol] 94.6 fL Normal 82.0-98.0 [facility] Comment on above: Performed By: #### L [id number] ####[facility] ([facility])[address] [place] [address] PLATELETS (10*3/UL) IN BLOOD AUTOMATED COUNT 326 10*3/uL Normal 150-400 [facility] Comment on above: Performed By: #### L [id number] ####[facility] ([facility])[address] [place] [address] RBC (Bld) [#/Vol] 2.94 10*6/uL Low 3.80-5.00 [facility] Comment on above: Performed By: #### L [id number] ####[facility] ([facility])[address] [place] [address] WBC (Bld) [#/Vol] 15.71 10*3/uL High 4.00-10.60 [facility] Comment on above: Performed By: #### L [id number] ####[facility] ([facility])[address] [place] [address] HEMOGLOBIN AND HEMATOCRIT, B LOODon 11-05-2022 Hematocrit (Bld) [Volume fraction] 31.0 % Low 36.0-48.0 [facility] Comment on above: Order Comment: TO be done in recovery following transfusion of PRBC in OR Performed By: #### L [id number] ####[facility] ([facility])[address] [place] [address] Hemoglobin (Bld) [Mass/Vol] 9.7 g/dL Low 12.0-15.0 [facility] Comment on above: Order Comment: TO be done in recovery following transfusion of PRBC in OR Performed By: #### L [id number] ####[facility] ([facility])[address] [place] [address] MAGNESIUMon 11-05-2022 Magnesium [Mass/Vol] 1.7 mg/dL Low 1.9-2.7 [facility] Comment on above: Performed By: #### L [id number] ####[facility] ([facility])[address] [place] [address] NURSNOTEon 11-05-2022 NURSNOTE REPORT CALLED TO ALIDA Nielsen RN 6AB NOEMÍ Nielsen [employer] [facility] NURSNOTE [facility] PER ANESTHESIA NOEMÍ Nielsen [employer] SPECIALIST [facility] NURSNOTE H&H SENT TO LAB NOEMÍ Nielsen [employer]IST [facility] NURSNOTE 1 unit of PRBC infus ion complete at this time. See flowsheet for post op vitals Noemí Nielsen [employer]PER[employer]IST [facility] NURSNOTE Patient arrived to P ACU with 1 unit of PRBC infusing Noemí Nielsen [employer] [facility] OPNOTEon 11-05-2022 OPNOTE [facility] POCT GLUCOSE METER UNSOLICIT ED RESULTSon 11-05-2022 Glucose [Mass/Vol] 124 mg/dL High 70-105 [facility] Comment on above: Result Comment: [email or web address] Performed By: #### L [id number] ####[facility] ([facility])[address] [place] [address] Glucose [Mass/Vol] 109 mg/dL High 70-105 [facility] Comment on above: Result Comment: elac umsky Performed By: #### L [id number] ####[facility] ([facility])[address] [place] [address] Glucose [Mass/Vol] 98 mg/dL Normal 70-105 [facility] Comment on above: Result Comment: elac umsky Performed By: #### L [id number] ####[facility] ([facility])[address] [place] [address] Glucose [Mass/Vol] 87 mg/dL Normal 70-105 [facility] Comment on above: Result Comment: [email or web address] Performed By: #### L [id number] ####[facility] ([facility])[address] [place] [address] Glucose [Mass/Vol] 112 mg/dL High 70-105 [facility] Comment on above: Result Comment: [email or web address] Performed By: #### L [id number] ####[facility] ([facility])[address] [place] [address] PROTIME-INRon 11-05-2022 INR IN PPP BY COAGULATION ASSAY 1.20 High 0.90-1.10 [facility] Comment on above: Result Comment: [facility] P RECOMMENDED INR FOR WARFARIN THERAPY CONDITION INRPROPHYLAXIS OF VENOUS THROMBOSIS 2-3(HIGH-RISK SURGERY)TREATMENT OF VENOUS THROMBOSIS 2-3TREATMENT OF PULMONARY EMBOLISM 2-3PREVENTION OF SYSTEMIC EMBOLISM: 2-3 ACUTE MYOCARDIAL INFARCTION TISSUE HEART VALVES VALVULAR HEART DISEASE ATRIAL FIBRILLATION RECURRENT SYSTEMIC EMBOLISMMECHANICAL HEART VALVE 2.5-3.5 FROM: ORAL ANTICOAGULANTS. MECHANISM OF ACTION, CLINICAL EFFECTIVENESS, AND OPTIMAL THERAPEUTIC RANGE. CHEST 1995;108:231S-246S. Performed By: #### L [id number] ####[facility] ([facility])[address] [place] [address] PROTHROMBIN TIME (PT) IN PPP BY COAGULATION ASSAY 15.2 Seconds High 12.3-14.8 [facility] Comment on above: Performed By: #### L [id number] ####[facility] ([facility])[address] [place] [address] TISSUE CULTUREon 11-05-2022 Bacteria identified Cx Nom (Unsp spec) Abnormal [facility] Comment on above: Order Comment: Pre-o p diagnosis:Osteomyelitis (CMS/HCC) [M86.9] Result Comment: STAP HYLOCOCCUS AUREUSStaphylococcus aureusPresumptive IdentificationFor Susceptibility Results Please Refer to MIRABILISIsolated from Broth Culture Proteus mirabilisFor Susceptibility Results Please Refer to Performed By: #### L [id number] ####[facility] ([facility])[address] [place] [address] GRAM STAIN RESULT Normal [facility] Comment on above: Order Comment: Pre-o p diagnosis:Osteomyelitis (CMS/HCC) [M86.9] Result Comment: Rare Polymorphonuclear leukocytesNo organisms seen Performed By: #### L [id number] ####[facility] ([facility])[address] [place] [address] Ampicillin [Susc] <=4 Susceptible [facility] Comment on above: Order Comment: Pre-o p diagnosis:Osteomyelitis (CMS/HCC) [M86.9] Performed By: #### L [id number] ####[facility] ([facility])[address] [place] [address] Ampicillin+Sulbactam [Susc] <=1/0.5 Susceptible [facility] Comment on above: Order Comment: Pre-o p diagnosis:Osteomyelitis (CMS/HCC) [M86.9] Performed By: #### L [id number] ####[facility] ([facility])[address] [place] [address] Aztreonam [Susc] <=2 Susceptible [facility] Comment on above: Order Comment: Pre-o p diagnosis:Osteomyelitis (CMS/HCC) [M86.9] Performed By: #### L [id number] ####[facility] ([facility])[address] [place] [address] ceFAZolin [Susc] 8 ug/ml Susceptible [facility] Comment on above: Order Comment: Pre-o p diagnosis:Osteomyelitis (CMS/HCC) [M86.9] Performed By: #### L [id number] ####[facility] ([facility])[address] [place] [address] cefTRIAXone [Susc] <=1 Susceptible [facility] Comment on above: Order Comment: Pre-o p diagnosis:Osteomyelitis (CMS/HCC) [M86.9] Performed By: #### L [id number] ####[facility] ([facility])[address] [place] [address] Ciprofloxacin [Susc] <=0.25 Susceptible [facility] Comment on above: Order Comment: Pre-o p diagnosis:Osteomyelitis (CMS/HCC) [M86.9] Performed By: #### L [id number] ####[facility] ([facility])[address] [place] [address] Gentamicin [Susc] 4 ug/ml Susceptible [facility] Comment on above: Order Comment: Pre-o p diagnosis:Osteomyelitis (CMS/HCC) [M86.9] Performed By: #### L [id number] ####[facility] ([facility])[address] [place] [address] Piperacillin+Tazobac lambert [Susc] <=2/4 Susceptible [facility] Comment on above: Order Comment: Pre-o p diagnosis:Osteomyelitis (CMS/HCC) [M86.9] Performed By: #### L [id number] ####[facility] ([facility])[address] [place] [address] Tobramycin [Susc] 4 ug/ml Susceptible [facility] Comment on above: Order Comment: Pre-o p diagnosis:Osteomyelitis (CMS/HCC) [M86.9] Performed By: #### L [id number] ####[facility] ([facility])[address] [place] [address] Trimethoprim+Sulfame thoxazole [Susc] <=0.5/9.5 Susceptible [facility] Comment on above: Order Comment: Pre-o p diagnosis:Osteomyelitis (CMS/HCC) [M86.9] Performed By: #### L [id number] ####[facility] ([facility])[address] [place] [address] 30on 11-04-2022 30 Normal [facility] 30 Normal [facility] ANESon 11-04-2022 ANES Normal [facility] CBC WITH AUTO DIFFERENTIALon 11-04-2022 Basophils (Bld) [#/Vol] 0.04 10*3/uL Normal 0.00-0.20 [facility] Comment on above: Performed By: #### L [id number] ####[facility] ([facility])[address] [place] [address] Basophils/100 WBC (Bld) 0.2 % Normal 0.0-1.0 [facility] Comment on above: Performed By: #### L [id number] ####[facility] ([facility])[address] [place] [address] Eosinophils (Bld) [#/Vol] 0.40 10*3/uL Normal 0.00-0.50 [facility] Comment on above: Performed By: #### L [id number] ####[facility] ([facility])[address] [place] [address] Eosinophils/100 WBC (Bld) 2.1 % Normal 0.0-6.0 [facility] Comment on above: Performed By: #### L [id number] ####[facility] ([facility])[address] [place] [address] Erythrocyte distribution width (RBC) [Ratio] 15.1 % High 11.5-15.0 [facility] Comment on above: Performed By: #### L [id number] ####[facility] ([facility])[address] [place] [address] ERYTHROCYTE MEAN CORPUSCULAR HEMOGLOBIN CONCENTRATION (G/DL) BY AUTOMATED 31.5 g/dL Low 32.0-35.0 [facility] Comment on above: Performed By: #### L [id number] ####[facility] ([facility])[address] [place] [address] Hematocrit (Bld) [Volume fraction] 27.6 % Low 36.0-48.0 [facility] Comment on above: Performed By: #### L [id number] ####[facility] ([facility])[address] [place] [address] Hemoglobin (Bld) [Mass/Vol] 8.7 g/dL Low 12.0-15.0 [facility] Comment on above: Performed By: #### L [id number] ####[facility] ([facility])[address] [place] [address] Immature granulocytes (Bld) [#/Vol] 0.11 10*3/uL Normal 0.00-0.20 [facility] Comment on above: Performed By: #### L [id number] ####[facility] ([facility])[address] [place] [address] Immature granulocytes/100 WBC (Bld) 0.6 % Normal 0.0-1.0 [facility] Comment on above: Performed By: #### L [id number] ####[facility] ([facility])[address] [place] [address] Lymphocytes (Bld) [#/Vol] 0.51 10*3/uL Low 1.20-4.00 [facility] Comment on above: Performed By: #### L [id number] ####[facility] ([facility])[address] [place] [address] Lymphocytes/100 WBC (Bld) 2.7 % Low 20.0-45.0 [facility] Comment on above: Performed By: #### L [id number] ####[facility] ([facility])[address] [place] [address] MCH (RBC) [Entitic mass] 28.6 pg Normal 27.0-33.0 [facility] Comment on above: Performed By: #### L [id number] ####[facility] [place] [address] MCV (RBC) [Entitic vol] 90.8 fL Normal 82.0-98.0 [facility] Comment on above: Performed By: #### L [id number] ####[facility] [place] [address] Monocytes (Bld) [#/Vol] 1.11 10*3/uL High 0.10-1.00 [facility] Comment on above: Performed By: #### L [id number] ####[facility] ([facility])[address] [place] [address] Monocytes/100 WBC (Bld) 5.9 % Normal 5.0-12.0 [facility] Comment on above: Performed By: #### L [id number] ####[facility] ([facility])[address] [place] [address] Neutrophils (Bld) [#/Vol] 16.73 10*3/uL High 1.60-7.60 [facility] Comment on above: Performed By: #### L [id number] ####[facility] ([facility])[address] [place], [place] [address] Neutrophils/100 WBC (Bld) 88.5 % High 40.0-72.0 [facility] Comment on above: Performed By: #### L [id number] ####[facility] ([facility])[address] [place] [address] NRBC (PER 100 WBCS) BY AUTOMATED COUNT 0.0 % Normal 0 [facility] Comment on above: Performed By: #### L [id number] ####[facility] ([facility])[address] [place] [address] PLATELETS (10*3/UL) IN BLOOD AUTOMATED COUNT 332 10*3/uL Normal 150-400 [facility] Comment on above: Performed By: #### L [id number] ####[facility] ([facility])[address] [place], [place] [address] RBC (Bld) [#/Vol] 3.04 10*6/uL Low 3.80-5.00 [facility] Comment on above: Performed By: #### L [id number] ####[facility] ([facility])[address] [place], [place] [address] WBC (Bld) [#/Vol] 18.90 10*3/uL High 4.00-10.60 [facility] Comment on above: Performed By: #### L [id number] ####[facility] ([facility])[address] [place] [address] COMPREHENSIVE METABOLIC PANE Fred 11-04-2022 Albumin [Mass/Vol] 2.4 g/dL Low 3.5-5.7 [facility] Comment on above: Performed By: #### L [id number] ####[facility] ([facility])[address] [place] [address] ALP [Catalytic activity/Vol] 146 U/L High 34-104 [facility] Comment on above: Performed By: #### L [id number] ####[facility] [place] [address] ALT [Catalytic activity/Vol] 13 U/L Normal 7-52 [facility] Comment on above: Performed By: #### L [id number] ####[facility] [place] [address] Anion gap [Moles/Vol] 11 mmol/L Normal 7-20 [facility] Comment on above: Performed By: #### L [id number] ####[facility] ([facility])[address] [place] [address] AST [Catalytic activity/Vol] 10 U/L Low 13-39 [facility] Comment on above: Performed By: #### L [id number] ####[facility] ([facility])[address] [place] [address] Bilirubin [Mass/Vol] 0.3 mg/dL Normal 0.3-1.0 [facility] Comment on above: Performed By: #### L [id number] ####[facility] [place] [address] Calcium [Mass/Vol] 7.9 mg/dL Low 8.6-10.3 [facility] Comment on above: Performed By: #### L [id number] ####[facility] ([facility])[address] [place] [address] Chloride [Moles/Vol] 106 mmol/L Normal 98-107 [facility] Comment on above: Performed By: #### L [id number] ####[facility] ([facility])[address] [place] [address] CO2 [Moles/Vol] 22 mmol/L Normal 21-31 [facility] Comment on above: Performed By: #### L [id number] ####[facility] ([facility])[address] [place] [address] Creatinine [Mass/Vol] 1.13 mg/dL Normal 0.60-1.20 [facility] Comment on above: Performed By: #### L [id number] ####[facility] ([facility])[address] [place] [address] GLOMERULAR FILTRATION RATE ML/MIN/1.73 SQ M.PREDICTED 49.8 mL/min/1.73m*2 Low >60.0 [facility] Comment on above: Result Comment: The [facility]???s estimated glomerular filtration rate (eGFR) will no longer include consideration of race in its calculation. The National Kidney Foundation???s eGFR Task Force developed new recommendations for the estimation of the glomerular filtration rate in the [place] They recommend immediate implementation of the new equation refit without the race variable in all laboratories because the calculation does not include race. In addition to not including race in the calculation and reporting, it included diversity in its development, and has acceptable performance characteristics and potential consequences that do not disproportionately affect any one group of individuals. Performed By: #### L [id number] ####[facility] ([facility])[address] [place] [address] Glucose [Mass/Vol] 95 mg/dL Normal 70-100 [facility] Comment on above: Performed By: #### L [id number] ####[facility] ([facility])[address] [place] [address] Potassium [Moles/Vol] 3.7 mmol/L Normal 3.5-5.1 [facility] Comment on above: Performed By: #### L [id number] ####[facility] ([facility])[address] [place] [address] Protein [Mass/Vol] 4.7 g/dL Low 6.0-8.3 [facility] Comment on above: Performed By: #### L [id number] ####[facility] ([facility])[address] [place] [address] Sodium [Moles/Vol] 135 mmol/L Low 136-145 [facility] Comment on above: Performed By: #### L [id number] ####[facility] ([facility])[address] [place] [address] Urea nitrogen [Mass/Vol] 16 mg/dL Normal 7-25 [facility] Comment on above: Performed By: #### L [id number] ####[facility] ([facility])[address] [place] [address] UREA NITROGEN/CREATININE (MASS RATIO) IN SER/PLAS 14.2 Normal [facility] Comment on above: Performed By: #### L [id number] ####[facility] ([facility])[address] [place] [address] LACTIC ACID, PLASMAon 2022 LACTATE (MMOL/L) IN SER/PLAS 0.9 mmol/L Normal 0.5-2.2 [facility] Comment on above: Performed By: #### L [id number] ####[facility] ([facility])[address] [place] [address] MAGNESIUMon 11-04-2022 Magnesium [Mass/Vol] 1.9 mg/dL Normal 1.9-2.7 [facility] Comment on above: Performed By: #### L [id number] ####[facility] ([facility])[address] [place] [address] POCT GLUCOSE METER UNSOLICIT ED RESULTSon 11-04-2022 Glucose [Mass/Vol] 133 mg/dL High 70-105 [facility] Comment on above: Result Comment: david gh Performed By: #### L [id number] ####[facility] ([facility])[address] [place] [address] Glucose [Mass/Vol] 105 mg/dL Normal 70-105 [facility] Comment on above: Result Comment: swau gh Performed By: #### L [id number] ####[facility] ([facility])[address] [facility] [place] [address] Glucose [Mass/Vol] 119 mg/dL High 70-105 [facility] Comment on above: Result Comment: bacr es Performed By: #### L [id number] ####[facility] ([facility])[address] [place] [address] SODIUMon 11-04-2022 Sodium [Moles/Vol] 134 mmol/L Low 136-145 [facility] Comment on above: Performed By: #### L [id number] ####[facility] ([facility])[address] [facility]Image[facility] [place] [address] TYPE AND SCREENon 11-04-2022 AB SCREEN Negative Normal [facility] Comment on above: Order Comment: May d o with morning draws on 11/05 Performed By: #### L [id number] ####[facility], ABO group Nom (Bld) AB Normal [facility] Comment on above: Order Comment: May d o with morning draws on 11/05 Performed By: #### L [id number] ####[facility], RH TYPE IN BLOOD Positive Normal [facility] Comment on above: Order Comment: May d o with morning draws on 11/05 Performed By: #### L [id number] ####[facility], 30on 11-03-2022 30 The patient is Moder ately Stable - Low risk of patient condition declining or worsening The patient's goals for the shift include Rest The clinical goals for the shift include Comfort Normal [facility] BASIC METABOLIC PANELon 10-24 Anion gap [Moles/Vol] 17 mmol/L Normal - [facility] Comment on above: Performed By: #### L [id number] ####[facility] ([facility])[address] [place] [facility] [place] [address] Calcium [Mass/Vol] 8.1 mg/dL Low 8.6-10.3 [facility] Comment on above: Performed By: #### L [id number] ####[facility] ([facility])[address] [place] [address] Chloride [Moles/Vol] 103 mmol/L Normal 98-107 [facility] Comment on above: Performed By: #### L [id number] ####[facility] ([facility])[address] [place] [address] CO2 [Moles/Vol] 19 mmol/L Low 21-31 [facility] Comment on above: Performed By: #### L [id number] ####[facility] [place] [address] Creatinine [Mass/Vol] 1.41 mg/dL High 0.60-1.20 [facility] Comment on above: Performed By: #### L [id number] ####[facility] ([facility])[address] [place] [address] GLOMERULAR FILTRATION RATE ML/MIN/1.73 SQ M.PREDICTED 38.2 mL/min/1.73m*2 Low >60.0 [facility] Comment on above: Result Comment: The [facility]???s estimated glomerular filtration rate (eGFR) will no longer include consideration of race in its calculation. The National Kidney Foundation???s eGFR Task Force developed new recommendations for the estimation of the glomerular filtration rate in the [place] They recommend immediate implementation of the new equation refit without the race variable in all laboratories because the calculation does not include race. In addition to not including race in the calculation and reporting, it included diversity in its development, and has acceptable performance characteristics and potential consequences that do not disproportionately affect any one group of individuals. Performed By: #### L [id number] ####[facility] [place] [address] Glucose [Mass/Vol] 61 mg/dL Low 70-100 [facility] Comment on above: Performed By: #### L [id number] ####[facility] [place] [address] Potassium [Moles/Vol] 4.7 mmol/L Normal 3.5-5.1 [facility] Comment on above: Performed By: #### L [id number] ####[facility] [place] [address] Sodium [Moles/Vol] 134 mmol/L Low 136-145 [facility] Comment on above: Performed By: #### L [id number] ####[facility] [place] [address] Performed By: #### L [id number] ####[facility] ([facility])[address] [place] [address] Urea nitrogen [Mass/Vol] 26 mg/dL High 7-25 [facility] Comment on above: Performed By: #### L [id number] ####[facility] ([facility])[address] [place] [address] UREA NITROGEN/CREATININE (MASS RATIO) IN SER/PLAS 18.4 Normal [facility] Comment on above: Performed By: #### L [id number] ####[facility] ([facility])[address] [place] [address] BLOOD CULTUREon 11-03-2022 Bacteria identified Cx Nom (Bld) No growth at 5 days Normal [facility] Comment on above: Performed By: #### L [id number] ####[facility] ([facility])[address] [place] [address] Order Comment: From a different site than #1. C-REACTIVE PROTEINon 023 C REACTIVE PROTEIN (MG/L) IN SER/PLAS 156.0 mg/L High 0.0-7.0 [facility] Comment on above: Performed By: #### L [id number] ####[facility] [place] [address] CBCon 11-03-2022 Erythrocyte distribution width (RBC) [Ratio] 15.4 % High 11.5-15.0 [facility] Comment on above: Performed By: #### L [id number] ####[facility] ([facility])[address] [place] [address] ERYTHROCYTE MEAN CORPUSCULAR HEMOGLOBIN CONCENTRATION (G/DL) BY AUTOMATED 29.2 g/dL Low 32.0-35.0 [facility] Comment on above: Performed By: #### L [id number] ####[facility] ([facility])[address] [place] [address] Hematocrit (Bld) [Volume fraction] 32.9 % Low 36.0-48.0 [facility] Comment on above: Performed By: #### L [id number] ####[facility] ([facility])[address] [place], [place] [address] Hemoglobin (Bld) [Mass/Vol] 9.6 g/dL Low 12.0-15.0 [facility] Comment on above: Performed By: #### L [id number] ####[facility] ([facility])[address] [place] [address] MCH (RBC) [Entitic mass] 27.7 pg Normal 27.0-33.0 [facility] Comment on above: Performed By: #### L [id number] ####[facility] ([facility])[address] [place], [place] [address] MCV (RBC) [Entitic vol] 95.1 fL Normal 82.0-98.0 [facility] Comment on above: Performed By: #### L [id number] ####[facility] ([facility])[address] [place] [address] PLATELETS (10*3/UL) IN BLOOD AUTOMATED COUNT 318 10*3/uL Normal 150-400 [facility] Comment on above: Performed By: #### L [id number] ####[facility] ([facility])[address] [place], [place] [address] RBC (Bld) [#/Vol] 3.46 10*6/uL Low 3.80-5.00 [facility] Comment on above: Performed By: #### L [id number] ####[facility] ([facility])[address] [place] [address] WBC (Bld) [#/Vol] 17.04 10*3/uL High 4.00-10.60 [facility] Comment on above: Performed By: #### L [id number] ####[facility] ([facility])[address] [place] [address] CBC WITH AUTO DIFFERENTIALon 11-03-2022 Basophils (Bld) [#/Vol] 0.05 10*3/uL Normal 0.00-0.20 [facility] Comment on above: Performed By: #### L [id number] ####[facility] ([facility])[address] [place] [address] Basophils/100 WBC (Bld) 0.2 % Normal 0.0-1.0 [facility] Comment on above: Performed By: #### L [id number] ####[facility] ([facility])[address] [place] [address] Eosinophils (Bld) [#/Vol] 0.10 10*3/uL Normal 0.00-0.50 [facility] Comment on above: Performed By: #### L [id number] ####[facility] ([facility])[address] [place] [address] Eosinophils/100 WBC (Bld) 0.4 % Normal 0.0-6.0 [facility] Comment on above: Performed By: #### L [id number] ####[facility] ([facility])[address] [place] [address] Erythrocyte distribution width (RBC) [Ratio] 15.3 % High 11.5-15.0 [facility] Comment on above: Performed By: #### L [id number] ####[facility] ([facility])[address] [place] [address] ERYTHROCYTE MEAN CORPUSCULAR HEMOGLOBIN CONCENTRATION (G/DL) BY AUTOMATED 31.3 g/dL Low 32.0-35.0 [facility] Comment on above: Performed By: #### L [id number] ####[facility] ([facility])[address] [place] [address] Hematocrit (Bld) [Volume fraction] 31.0 % Low 36.0-48.0 [facility] Comment on above: Performed By: #### L [id number] ####[facility] ([facility])[address] [place] [address] Hemoglobin (Bld) [Mass/Vol] 9.7 g/dL Low 12.0-15.0 [facility] Comment on above: Performed By: #### L [id number] ####[facility] ([facility])[address] [place] [address] Immature granulocytes (Bld) [#/Vol] 0.16 10*3/uL Normal 0.00-0.20 [facility] Comment on above: Performed By: #### L [id number] ####[facility] ([facility])[address] [place] [address] Immature granulocytes/100 WBC (Bld) 0.7 % Normal 0.0-1.0 [facility] Comment on above: Performed By: #### L [id number] ####[facility] ([facility])[address] [place] [address] Lymphocytes (Bld) [#/Vol] 0.29 10*3/uL Low 1.20-4.00 [facility] Comment on above: Performed By: #### L [id number] ####[facility] ([facility])[address] [place] [address] Lymphocytes/100 WBC (Bld) 1.2 % Low 20.0-45.0 [facility] Comment on above: Performed By: #### L [id number] ####[facility] ([facility])[address] [place] [address] MCH (RBC) [Entitic mass] 28.3 pg Normal 27.0-33.0 [facility] Comment on above: Performed By: #### L [id number] ####[facility] ([facility])[address] [place] [address] MCV (RBC) [Entitic vol] 90.4 fL Normal 82.0-98.0 [facility] Comment on above: Performed By: #### L [id number] ####[facility] ([facility])[address] [place] [address] Monocytes (Bld) [#/Vol] 1.12 10*3/uL High 0.10-1.00 [facility] Comment on above: Performed By: #### L [id number] ####[facility] ([facility])[address] [place] [address] Monocytes/100 WBC (Bld) 4.7 % Low 5.0-12.0 [facility] Comment on above: Performed By: #### L [id number] ####[facility] [place] [address] Neutrophils (Bld) [#/Vol] 21.86 10*3/uL High 1.60-7.60 [facility] Comment on above: Performed By: #### L [id number] ####[facility] [place] [address] Neutrophils/100 WBC (Bld) 92.8 % High 40.0-72.0 [facility] Comment on above: Performed By: #### L [id number] ####[facility] [place] [address] NRBC (PER 100 WBCS) BY AUTOMATED COUNT 0.0 % Normal 0 [facility] Comment on above: Performed By: #### L [id number] ####[facility] [place] [address] PLATELETS (10*3/UL) IN BLOOD AUTOMATED COUNT 387 10*3/uL Normal 150-400 [facility] Comment on above: Performed By: #### L [id number] ####[facility] ([facility])[address] [place] [address] RBC (Bld) [#/Vol] 3.43 10*6/uL Low 3.80-5.00 [facility] Comment on above: Performed By: #### L [id number] ####[facility] [place] [address] WBC (Bld) [#/Vol] 23.58 10*3/uL High 4.00-10.60 [facility] Comment on above: Performed By: #### L [id number] ####[facility] [place] [address] COMPREHENSIVE METABOLIC PANE Fred 11-03-2022 Albumin [Mass/Vol] 2.8 g/dL Low 3.5-5.7 [facility] Comment on above: Performed By: #### L [id number] ####[facility] ([facility])[address] [place] [address] ALP [Catalytic activity/Vol] 155 U/L High 34-104 [facility] Comment on above: Performed By: #### L [id number] ####[facility] [place] [address] ALT [Catalytic activity/Vol] 14 U/L Normal 7-52 [facility] Comment on above: Performed By: #### L [id number] ####[facility] ([facility])[address] [place] [address] Anion gap [Moles/Vol] 18 mmol/L Normal 7-20 [facility] Comment on above: Performed By: #### L [id number] ####[facility] ([facility])[address] [place] [address] AST [Catalytic activity/Vol] 15 U/L Normal 13-39 [facility] Comment on above: Performed By: #### L [id number] ####[facility] ([facility])[address] [place] [address] Bilirubin [Mass/Vol] 0.4 mg/dL Normal 0.3-1.0 [facility] Comment on above: Performed By: #### L [id number] ####[facility] [place] [address] Calcium [Mass/Vol] 8.2 mg/dL Low 8.6-10.3 [facility] Comment on above: Performed By: #### L [id number] ####[facility] ([facility])[address] [place] [address] Chloride [Moles/Vol] 102 mmol/L Normal 98-107 [facility] Comment on above: Performed By: #### L [id number] ####[facility] ([facility])[address] [place] [address] CO2 [Moles/Vol] 20 mmol/L Low 21-31 [facility] Comment on above: Performed By: #### L [id number] ####[facility] ([facility])[address] [facility] [place] [address] Creatinine [Mass/Vol] 1.46 mg/dL High 0.60-1.20 [facility] Comment on above: Performed By: #### L [id number] ####[facility] ([facility])[address] [place] [address] GLOMERULAR FILTRATION RATE ML/MIN/1.73 SQ M.PREDICTED 36.6 mL/min/1.73m*2 Low >60.0 [facility] Comment on above: Result Comment: The [facility]???s estimated glomerular filtration rate (eGFR) will no longer include consideration of race in its calculation. The National Kidney Foundation???s eGFR Task Force developed new recommendations for the estimation of the glomerular filtration rate in the [place] They recommend immediate implementation of the new equation refit without the race variable in all laboratories because the calculation does not include race. In addition to not including race in the calculation and reporting, it included diversity in its development, and has acceptable performance characteristics and potential consequences that do not disproportionately affect any one group of individuals. Performed By: #### L [id number] ####[facility] ([facility])[address] [place] [address] Glucose [Mass/Vol] 58 mg/dL Low 70-100 [facility] Comment on above: Performed By: #### L [id number] ####[facility] [place] [address] Potassium [Moles/Vol] 4.9 mmol/L Normal 3.5-5.1 [facility] Comment on above: Performed By: #### L [id number] ####[facility] [place] [address] Protein [Mass/Vol] 5.6 g/dL Low 6.0-8.3 [facility] Comment on above: Performed By: #### L [id number] ####[facility] ([facility])[address] [place] [address] Sodium [Moles/Vol] 135 mmol/L Low 136-145 [facility] Comment on above: Performed By: #### L [id number] ####[facility] ([facility])[address] [place] [address] Urea nitrogen [Mass/Vol] 23 mg/dL Normal 7-25 [facility] Comment on above: Performed By: #### L [id number] ####[facility] ([facility])[address] [place] [address] UREA NITROGEN/CREATININE (MASS RATIO) IN SER/PLAS 15.8 [facility] Comment on above: Performed By: #### L [id number] ####[facility] ([facility])[address] [place] [address] CONSULTon 11-03-2022 CONSULT Normal [facility] CONSULT Normal [facility] HPon 11-03-2022 HP Normal [facility] LACTIC ACID WITH 4 HOUR REFL EXon 11-03-2022 LACTATE (MMOL/L) IN SER/PLAS 0.8 mmol/L Normal 0.5-2.2 [facility] Comment on above: Performed By: #### L [id number] ####[facility] ([facility])[address] [place] [address] MAGNESIUMon 11-03-2022 Magnesium [Mass/Vol] 1.8 mg/dL Low 1.9-2.7 [facility] Comment on above: Performed By: #### L [id number] ####[facility] ([facility])[address] [place] [address] Magnesium [Mass/Vol] 1.8 mg/dL Low 1.9-2.7 [facility] Comment on above: Performed By: #### L [id number] ####[facility] ([facility])[address] [place] [address] POCT GLUCOSE METER UNSOLICIT ED RESULTSon 11-03-2022 Glucose [Mass/Vol] 135 mg/dL High 70-105 [facility] Comment on above: Result Comment: [email or web address] Performed By: #### L [id number] ####[facility] ([facility])[address] [place] [address] Glucose [Mass/Vol] 162 mg/dL High 70-105 [facility] Comment on above: Result Comment: [email or web address] Performed By: #### L [id number] ####[facility] ([facility])[address] [place] [address] Glucose [Mass/Vol] 75 mg/dL Normal 70-105 [facility] Comment on above: Result Comment: [email or web address] Performed By: #### L [id number] ####[facility] ([facility])[address] [place] [address] Glucose [Mass/Vol] 78 mg/dL Normal 70-105 [facility] Comment on above: Result Comment: [email or web address] Performed By: #### L [id number] ####[facility] ([facility])[address] [place] [address] Glucose [Mass/Vol] 119 mg/dL High 70-105 [facility] Comment on above: Result Comment: [email or web address] Performed By: #### L [id number] ####[facility] ([facility])[address] [place] [address] Glucose [Mass/Vol] 82 mg/dL Normal 70-105 [facility] Comment on above: Result Comment: [email or web address] Performed By: #### L [id number] ####[facility] ([facility])[address] [facility] [place] [address] PROCALCITONIN TESTon 023 PROCALCITONIN IN BLOOD 1.01 ng/mL High 0.00-0.10 [facility] Comment on above: Result Comment: Susp ected Lower Respiratory Tract Infection:0.1-0.25 ng/mL - Low likelihood for bacterial infection;Antibiotics discouraged.*>0.25 ng/mL - Increased likelihood bacterial infection;Antibiotics encouraged. Suspected Sepsis: Strongly consider initiating antibiotics in all unstable patients.0.1-0.5 ng/mL - Low likelihood for sepsis; Antibiotics discouraged.*>0.5 ng/mL - Increased likelihood sepsis; Antibiotics encouraged.>2.0 ng/mL - High risk of sepsis/septic shock; Antibiotics strongly encouraged. *Recommend retesting PCT within 6-12 hours if clinically indicated and initial PCT<0.5ng/mL Performed By: #### L [id number] ####[facility] ([facility])[address] [place] [address] SEDIMENTATION RATEon 023 SEDIMENTATION RATE, ERYTHROCYTE 110 mm/hr High <=20 [facility] Comment on above: Performed By: #### L [id number] ####[facility] ([facility])[address] [place] [address] SODIUMon 11-03-2022 Sodium [Moles/Vol] 133 mmol/L Low 136-145 [facility] Comment on above: Performed By: #### L [id number] ####[facility] ([facility])[address] [place] [address] VANCOMYCIN TIMEDon 3 VANCOMYCIN IN SER/PLAS - TIMED 13.6 Low 20.0-40.0 [facility] Comment on above: Performed By: #### L [id number] ####[facility] ([facility])[address] [place] [address] XR shoulder RT min 2V*on XR shoulder RT min 2V* [facility] [place] [address] XRay Report Signed with Addenda Patient: Jessica Gonzalez MR#: [id number] 52 : 1945 Acct:[id number] Age/Sex: 77 / F ADM Date: 10/31/22 Loc: XD Room: Type: [facility] Attending Dr: Mekhi Boyer MD Copies to: Mekhi Boyer MD Ordering Provider: Mekhi Boyer MD Date of Service: 10/31/22 XR/XR shoulder RT min 2V*: PAIN ADDENDUM 1 For clarification, the erosion at the glenoid referred to in the body of the report is actually remodeling with change in contour due to joint space loss and bone to bone contact rather than bony destruction. There is also remodeling at the adjacent coracoid process. Impression dictated by: Whitley Miner M.D.11/13/2022 12:28 PM Dictation Location: [place] [address] Addendum Dictated By: MD Whitley Miner Addendum Signed By: 11/13/221227 Addendum Cosigned By: DD/ TD/TT: 11/13/22 RIGHT SHOULDER - 3 views CLINICAL HISTORY: Chronic right shoulder pain COMPARISON: Chest x-ray 07/24/2015 AP, Y and Grashey views were obtained. Assessment is slightly limited by positioning and osteopenia. There is loss of the glenohumeral joint space with erosion at the glenoid. Previous paperwork reports history of rheumatoid arthritis which may be the etiology. There is a longitudinally oriented linear lucency projecting at the humeral head. This might be overlap with the glenoid. There is new cortical irregularity at the greater tuberosity. Correlation is suggested to be sure there is no history of trauma to suggest these findings are posttraumatic (fracture) rather than degenerative. There is degenerative change at the acromioclavicular joint. There is narrowing of the glenohumeral interval which could indicate rotator cuff disease. There are some soft tissue calcifications along the proximal lateral aspect of the humerus. There is artifact from patient's bra however there is no evidence of hardware or metal at patient's shoulder. XR/XR shoulder RT min 2V* IMPRESSION: OSTEOPENIA. SEVERE DEGENERATIVE CHANGES THAT MAY RELATE TO HISTORY OF RHEUMATOID ARTHRITIS. DOUBT THAT CANNOT COMPLETELY EXCLUDE POSTTRAUMATIC CHANGES AND THEREFORE CORRELATION IS RECOMMENDED WITH FOLLOW-UP IMAGING IF WARRANTED. POSSIBLE ROTATOR CUFF DISEASE. Impression dictated by: Whitley iMner M.D.10/31/2022 4:22 PM Dictation Location: [place] [address] Transcribed By: [facility] 10/31/22 1622 Dictated By: Whitley Miner MD 10/31/22 1602 Signed By: 10/31/22 1622 Normal [facility] XR wrist BI 2Von 10-28-2022 XR wrist BI 2V [facility] [address] [place] [address] XRay Report Signed Patient: Jessica Gonzalez MR#: [id number] 52 : 1945 Acct:[id number] Age/Sex: 77 / F ADM Date: 10/28/22 Loc: XD Room: Type: [facility] Attending Dr: Mekhi Boyer MD Copies to: Mekhi Boyer MD Ordering Provider: Mekhi Boyer MD Date of Service: 10/28/22 XR/XR hand BI 2V: PAIN ([id number]) XR/XR wrist BI 2V: PAIN 2 views both wrist plain film COMPARISON: None HISTORY: Bilateral wrist pain. History of rheumatoid arthritis. ACUTE FINDINGS: No acute bony erosive changes. DEGENERATIVE CHANGE: There is extensive bilateral carpal bone collapse likely related to history of rheumatoid arthritis. There is no secondary osteophytic changes of both wrists. SOFT TISSUE FINDINGS: Diffuse soft tissue prominence in the wrists bilaterally. No soft tissue calcification. JOINT EFFUSION: None POSTOP CHANGES: None BONY MINERALIZATION: Adequate XR/XR hand BI 2V IMPRESSION: Bilateral chronic changes of collapse of the carpal bones bilaterally consistent with rheumatoid arthritis. Bilateral secondary osteoarthritis of the wrists. 2 views of both hands The bowel bilateral interphalangeal degenerative changes identified. No acute bony findings. Adequate bony alignment. Unremarkable soft tissues. IMPRESSION: Mild bilateral hand degeneration. Impression dictated by: Charly Hall M.D.10/28/2022 3:57 PM Dictation Location: [place] [address] Transcribed By: [facility] 10/28/22 155 Dictated By: Charly Hall DO 10/28/22 155 Signed By: 10/28/22 155 [facility] BUNon 10-23-2022 Urea nitrogen [Mass/Vol] 18.0 mg/dL Normal 7.0-18.0 [facility] Comment on above: Performed By: #### C RP, CREA, BUN, CK #### [facility] [address] [place] [address] [address] Ty Hicks CBC AUTO DIFFon 10-23-2022 BASO # 0.0 103/ul Normal 0.0-0.1 [facility] Comment on above: Performed By: #### C K, BUN, CRP, CREA #### [facility] [address] [place] [address] [address] Ty Hicks Basophils/100 WBC (Bld) 0.4 % Normal 0.2-2.0 [facility] Comment on above: Performed By: #### C K, BUN, CRP, CREA #### [facility] [address] [place] [address] [address] Ty Hicks EO # 0.2 103/ul Normal 0.0-0.7 [facility] Comment on above: Performed By: #### C K, BUN, CRP, CREA #### [facility] [address] [place] [address] [address] Ty Hicks Eosinophils/100 WBC (Bld) 2.3 % Normal 0.9-7.0 [facility] Comment on above: Performed By: #### C K, BUN, CRP, CREA #### [facility] [address] [place] [address] Dr. Ty Hicks Erythrocyte distribution width (RBC) [Ratio] 15.6 % Critically high 11.0-15.0 [facility] Comment on above: Performed By: #### C K, BUN, CRP, CREA #### [facility] [address] [place] [address] Dr. Ty Hicks Hematocrit (Bld) [Volume fraction] 31.7 % Critically low 36.0-48.0 [facility] Comment on above: Performed By: #### C K, BUN, CRP, CREA #### [facility] [address] [place] [address] Dr. Ty Hicks Hemoglobin (Bld) [Mass/Vol] 10.0 g/dL Critically low 12.0-16.0 [facility] Comment on above: Performed By: #### C K, BUN, CRP, CREA #### [facility] [address] [place] [address] Dr. Ty Hicks IG # 0.04 10e3/ul Critically high 0.00-0.03 [facility] Comment on above: Performed By: #### C K, BUN, CRP, CREA #### [facility] [address] [place] [address] Dr. Ty Hicks IG % 0.5 % Normal 0.0-0.5 [facility] Comment on above: Performed By: #### C K, BUN, CRP, CREA #### [facility] [address] [place] [address] Dr. Ty Hicks LYMPH # 1.4 103/ul Normal 1.2-3.8 [facility] Comment on above: Performed By: #### C K, BUN, CRP, CREA #### [facility] [address] [place] [address] Dr. Ty Hicks Lymphocytes/100 WBC (Bld) 18.6 % Critically low 20.5-60.0 [facility] Comment on above: Performed By: #### C K, BUN, CRP, CREA #### [facility] [address] [place] [address] Dr. Ty Hicks MANUAL DIFF REQ NO Normal [facility] Comment on above: Performed By: #### C K, BUN, CRP, CREA #### [facility] [address] [place] [address] Dr. Ty Hicks MCH (RBC) [Entitic mass] 29.0 pg Normal 26.7-34.0 [facility] Comment on above: Performed By: #### C K, BUN, CRP, CREA #### [facility] [address] [place] [address] Dr. Ty Hicks MCHC (RBC) [Mass/Vol] 31.5 g/dL Normal 29.9-35.2 [facility] Comment on above: Performed By: #### C K, BUN, CRP, CREA #### [facility] [address] [place] [address] Dr. Ty Hicks MCV (RBC) [Entitic vol] 91.9 fL Normal 81.0-99.0 [facility] Comment on above: Performed By: #### C K, BUN, CRP, CREA #### [facility] [address] [place] [address] Dr. Ty Hicks MONO # 0.8 103/ul Normal 0.3-0.8 [facility] Comment on above: Performed By: #### C K, BUN, CRP, CREA #### [facility] [address] [place] [address] Dr. Ty Hicks Monocytes/100 WBC (Bld) 11.2 % Normal 1.7-12.0 [facility] Comment on above: Performed By: #### C K, BUN, CRP, CREA #### [facility] [address] [place] [address] Dr. Ty Hicks NEUT # 5.0 103/ul Normal 1.4-6.5 [facility] Comment on above: Performed By: #### C K, BUN, CRP, CREA #### [facility] [address] [place] [address] Dr. Ty Hicks Neutrophils/100 WBC (Bld) 67.0 % Normal 43.0-75.0 [facility] Comment on above: Performed By: #### C K, BUN, CRP, CREA #### [facility] [address] [place] [address] Dr. Ty Hicks Platelet mean volume (Bld) [Entitic vol] 9.4 fL Critically low 9.5-13.5 [facility] Comment on above: Performed By: #### C K, BUN, CRP, CREA #### [facility] [address] [place] [address] Dr. Ty Hicks PLT 439 103/ul Normal 150-450 [facility] Comment on above: Performed By: #### C K, BUN, CRP, CREA #### [facility] [address] [place] [address] Dr. Ty Hicks RBC 3.45 106/ul Critically low 4.20-5.40 [facility] Comment on above: Performed By: #### C K, BUN, CRP, CREA #### [facility] [address] [place] [address] Dr. Ty Hicks WBC 7.4 103/ul Normal 4.0-11.0 [facility] Comment on above: Performed By: #### C K, BUN, CRP, CREA #### [facility] [address] [place] [address] Dr. Ty Hicks CPKon 10-23-2022 CK [Catalytic activity/Vol] 34 U/L Normal 26-192 [facility] Comment on above: Performed By: #### C RP, CREA, BUN, CK #### [facility] [address] [place] [address] Dr. Ty Hicks CREATININEon 10-23-2022 Creatinine [Mass/Vol] 1.40 mg/dL Critically high 0.55-1.02 [facility] Comment on above: Performed By: #### C RP, CREA, BUN, CK #### [facility] [address] [place] [address] Dr. Ty Hicks EGFR-AF OMANI 44 mL/min/1.73m2 Critically low >=60 [facility] Comment on above: Performed By: #### C RP, CREA, BUN, CK #### [facility] [address] [place] [address] Dr. Ty Hicks EGFR-NON AF OMANI 36 mL/min/1.73m2 Critically low >=60 [facility] Comment on above: Performed By: #### C RP, CREA, BUN, CK #### [facility] [address] [place] [address] Dr. Ty Hicks CRPon 10-23-2022 CRP 6.6 mg/dL Critically high <=1.0 [facility] Comment on above: Performed By: #### C RP, CREA, BUN, CK #### [facility] [address] [place] [address] Dr. Ty Hicks Follow-Upon 10-22-2022 Follow-Up Normal [facility] BUNon 10-16-2022 Urea nitrogen [Mass/Vol] 21.0 mg/dL Critically high 7.0-18.0 [facility] Comment on above: Performed By: #### C K, BUN, CRP, CREA #### [facility] [address] [place] [address] Dr. Ty Hicks CBC AUTO DIFFon 10-16-2022 BASO # 0.1 103/ul Normal 0.0-0.1 [facility] Comment on above: Performed By: #### C K, BUN, CRP, CREA #### [facility] [address] [place] [address] Dr. Ty Hicks Basophils/100 WBC (Bld) 0.6 % Normal 0.2-2.0 [facility] Comment on above: Performed By: #### C K, BUN, CRP, CREA #### [facility] [address] [place] [address] Dr. Ty Hicks EO # 0.3 103/ul Normal 0.0-0.7 [facility] Comment on above: Performed By: #### C K, BUN, CRP, CREA #### [facility] [address] [place] [address] Dr. Ty Hicks Eosinophils/100 WBC (Bld) 3.2 % Normal 0.9-7.0 [facility] Comment on above: Performed By: #### C K, BUN, CRP, CREA #### [facility] [address] [place] [address] Dr. Ty Hicks Erythrocyte distribution width (RBC) [Ratio] 15.8 % Critically high 11.0-15.0 [facility] Comment on above: Performed By: #### C K, BUN, CRP, CREA #### [facility] [address] [place] [address] Dr. Ty Hicks Hematocrit (Bld) [Volume fraction] 28.2 % Critically low 36.0-48.0 [facility] Comment on above: Performed By: #### C K, BUN, CRP, CREA #### [facility] [address] [place] [address] Dr. Ty Hicks Hemoglobin (Bld) [Mass/Vol] 8.8 g/dL Critically low 12.0-16.0 [facility] Comment on above: Performed By: #### C K, BUN, CRP, CREA #### [facility] [address] [place] [address] Dr. Ty Hicks IG # 0.04 10e3/ul Critically high 0.00-0.03 [facility] Comment on above: Performed By: #### C K, BUN, CRP, CREA #### [facility] [address] [place] [address] Dr. Ty Hicks IG % 0.5 % Normal 0.0-0.5 [facility] Comment on above: Performed By: #### C K, BUN, CRP, CREA #### [facility] [address] [place] [address] Dr. Ty Hicks LYMPH # 1.4 103/ul Normal 1.2-3.8 [facility] Comment on above: Performed By: #### C K, BUN, CRP, CREA #### [facility] [address] [place] [address] Dr. Ty Hicks Lymphocytes/100 WBC (Bld) 15.8 % Critically low 20.5-60.0 [facility] Comment on above: Performed By: #### C K, BUN, CRP, CREA #### [facility] [address] [place] [address] Dr. Ty Hicks MANUAL DIFF REQ NO Normal [facility] Comment on above: Performed By: #### C K, BUN, CRP, CREA #### [facility] [address] [place] [address] Dr. Ty Hicks MCH (RBC) [Entitic mass] 28.9 pg Normal 26.7-34.0 [facility] Comment on above: Performed By: #### C K, BUN, CRP, CREA #### [facility] [address] [place] [address] Dr. Ty Hicks MCHC (RBC) [Mass/Vol] 31.2 g/dL Normal 29.9-35.2 [facility] Comment on above: Performed By: #### C K, BUN, CRP, CREA #### [facility] [address] [place] [address] Dr. Ty Hicks MCV (RBC) [Entitic vol] 92.8 fL Normal 81.0-99.0 [facility] Comment on above: Performed By: #### C K, BUN, CRP, CREA #### [facility] [address] [place] [address] Dr. Ty Hicks MONO # 0.7 103/ul Normal 0.3-0.8 [facility] Comment on above: Performed By: #### C K, BUN, CRP, CREA #### [facility] [address] [place] [address] Dr. Ty Hicks Monocytes/100 WBC (Bld) 8.2 % Normal 1.7-12.0 [facility] Comment on above: Performed By: #### C K, BUN, CRP, CREA #### [facility] [address] [place] [address] Dr. Ty Hicks NEUT # 6.1 103/ul Normal 1.4-6.5 [facility] Comment on above: Performed By: #### C K, BUN, CRP, CREA #### [facility] [address] [place] [address] Dr. Ty Hicks Neutrophils/100 WBC (Bld) 71.7 % Normal 43.0-75.0 [facility] Comment on above: Performed By: #### C K, BUN, CRP, CREA #### [facility] [address] [place] [address] Dr. Ty Hicks Platelet mean volume (Bld) [Entitic vol] 9.1 fL Critically low 9.5-13.5 [facility] Comment on above: Performed By: #### C K, BUN, CRP, CREA #### [facility] [address] [place] [address] Dr. Ty Hicks PLT 414 103/ul Normal 150-450 [facility] Comment on above: Performed By: #### C K, BUN, CRP, CREA #### [facility] [address] [place] [address] Dr. Ty Hicks RBC 3.04 106/ul Critically low 4.20-5.40 [facility] Comment on above: Performed By: #### C K, BUN, CRP, CREA #### [facility] [address] [place] [address] Dr. Ty Hicks WBC 8.5 103/ul Normal 4.0-11.0 [facility] Comment on above: Performed By: #### C K, BUN, CRP, CREA #### [facility] [address] [place] [address] Dr. Ty Hicks CPKon 10-16-2022 CK [Catalytic activity/Vol] 42 U/L Normal 26-192 [facility] Comment on above: Performed By: #### C K, BUN, CRP, CREA #### [facility] [address] [place] [address] Dr. Ty Hicks CREATININEon 10-16-2022 Creatinine [Mass/Vol] 1.33 mg/dL Critically high 0.55-1.02 [facility] Comment on above: Performed By: #### C K, BUN, CRP, CREA #### [facility] [address] [place] [address] Dr. Ty Hicks EGFR-AF OMANI 47 mL/min/1.73m2 Critically low >=60 [facility] [facility] Comment on above: Performed By: #### C K, BUN, CRP, CREA #### [facility] [address] [place] [address] Dr. Ty Hicks EGFR-NON AF OMANI 39 mL/min/1.73m2 Critically low >=60 [facility] Comment on above: Performed By: #### C K, BUN, CRP, CREA #### [facility] [address] [place] [address] Dr. Ty Hicks CRPon 10-16-2022 CRP 1.1 mg/dL Critically high <=1.0 [facility] Comment on above: Performed By: #### C K, BUN, CRP, CREA #### [facility] [address] [place] [address] Dr. Ty Hicks BUNon 10-09-2022 Urea nitrogen [Mass/Vol] 19.0 mg/dL Critically high 7.0-18.0 [facility] Comment on above: Performed By: #### C K, BUN, CRP, CREA #### [facility] [address] [place] [address] Dr. Ty Hicks CBC AUTO DIFFon 10-09-2022 BASO # 0.0 103/ul Normal 0.0-0.1 [facility] Comment on above: Performed By: #### C RP, CREA, BUN, CK #### [facility] [address] [place] [address] Dr. Ty Hicks Basophils/100 WBC (Bld) 0.4 % Normal 0.2-2.0 [facility] Comment on above: Performed By: #### C RP, CREA, BUN, CK #### [facility] [address] [place] [address] Dr. Ty Hicks EO # 0.3 103/ul Normal 0.0-0.7 [facility] Comment on above: Performed By: #### C RP, CREA, BUN, CK #### [facility] [address] [place] [address] Dr. Ty Hicks Eosinophils/100 WBC (Bld) 3.6 % Normal 0.9-7.0 [facility] Comment on above: Performed By: #### C RP, CREA, BUN, CK #### [facility] [address] [place] [address] Dr. Ty Hicks Erythrocyte distribution width (RBC) [Ratio] 15.9 % Critically high 11.0-15.0 [facility] Comment on above: Performed By: #### C RP, CREA, BUN, CK #### [facility] [address] [place] [address] Dr. Ty Hicks Hematocrit (Bld) [Volume fraction] 29.2 % Critically low 36.0-48.0 [facility] Comment on above: Performed By: #### C RP, CREA, BUN, CK #### [facility] [address] [place] [address] Dr. Ty Hicks Hemoglobin (Bld) [Mass/Vol] 9.1 g/dL Critically low 12.0-16.0 [facility] Comment on above: Performed By: #### C RP, CREA, BUN, CK #### [facility] [address] [place] [address] Dr. Ty Hicks IG # 0.07 10e3/ul Critically high 0.00-0.03 [facility] Comment on above: Performed By: #### C RP, CREA, BUN, CK #### [facility] [address] [place] [address] Dr. Ty Hicks IG % 0.8 % Critically high 0.0-0.5 [facility] Comment on above: Performed By: #### C RP, CREA, BUN, CK #### [facility] [address] [place] [address] Dr. Ty Hicks LYMPH # 1.9 103/ul Normal 1.2-3.8 [facility] Comment on above: Performed By: #### C RP, CREA, BUN, CK #### [facility] [address] [place] [address] Dr. Ty Hicks Lymphocytes/100 WBC (Bld) 20.8 % Normal 20.5-60.0 [facility] Comment on above: Performed By: #### C RP, CREA, BUN, CK #### [facility] [address] [place] [address] Dr. Ty Hicks MANUAL DIFF REQ NO Normal [facility] Comment on above: Performed By: #### C RP, CREA, BUN, CK #### [facility] [address] [place] [address] Dr. Ty Hicks MCH (RBC) [Entitic mass] 29.8 pg Normal 26.7-34.0 [facility] Comment on above: Performed By: #### C RP, CREA, BUN, CK #### [facility] [address] [place] [address] Dr. Ty Hicks MCHC (RBC) [Mass/Vol] 31.2 g/dL Normal 29.9-35.2 [facility] Comment on above: Performed By: #### C RP, CREA, BUN, CK #### [facility] [address] [place] [address] Dr. Ty Hicks MCV (RBC) [Entitic vol] 95.7 fL Normal 81.0-99.0 [facility] Comment on above: Performed By: #### C RP, CREA, BUN, CK #### [facility] [address] [place] [address] Dr. Ty Hicks MONO # 0.9 103/ul Critically high 0.3-0.8 [facility] Comment on above: Performed By: #### C RP, CREA, BUN, CK #### [facility] [address] [place] [address] Dr. Ty Hicks Monocytes/100 WBC (Bld) 10.2 % Normal 1.7-12.0 [facility] Comment on above: Performed By: #### C RP, CREA, BUN, CK #### [facility] [address] [address] [address] Ty Hicks NEUT # 6.0 103/ul Normal 1.4-6.5 [facility] Comment on above: Performed By: #### C RP, CREA, BUN, CK #### [facility] [address] [address] [address] Ty Hicks Neutrophils/100 WBC (Bld) 64.2 % Normal 43.0-75.0 [facility] Comment on above: Performed By: #### C RP, CREA, BUN, CK #### [facility] [address] [address] [address] Ty Hicks Platelet mean volume (Bld) [Entitic vol] 9.5 fL Normal 9.5-13.5 [facility] Comment on above: Performed By: #### C RP, CREA, BUN, CK #### [facility] [address] [place] [address] Dr. Ty Hicks PLT 444 103/ul Normal 150-450 [facility] Comment on above: Performed By: #### C RP, CREA, BUN, CK #### [facility] [address] [address] [address] Ty Hicks RBC 3.05 106/ul Critically low 4.20-5.40 [facility] Comment on above: Performed By: #### C RP, CREA, BUN, CK #### [facility] [address] [address] [address] Ty Hicks WBC 9.3 103/ul Normal 4.0-11.0 [facility] Comment on above: Performed By: #### C RP, CREA, BUN, CK #### [facility] [address] [address] [address] Ty Hicks CPKon 10-09-2022 CK [Catalytic activity/Vol] 26 U/L Normal 26-192 [facility] Comment on above: Performed By: #### C K, BUN, CRP, CREA #### [facility] [address] [address] [address] Ty Hicks CREATININEon 10-09-2022 Creatinine [Mass/Vol] 1.28 mg/dL Critically high 0.55-1.02 [facility] Comment on above: Performed By: #### C K, BUN, CRP, CREA #### [facility] [address] [place] [address] Dr. Ty Hicks EGFR-AF OMANI 49 mL/min/1.73m2 Critically low >=60 [facility] Comment on above: Performed By: #### C K, BUN, CRP, CREA #### [facility] [address] [place] [address] Dr. Ty Hicks EGFR-NON AF OMANI 40 mL/min/1.73m2 Critically low >=60 [facility] Comment on above: Performed By: #### C K, BUN, CRP, CREA #### [facility] [address] [place] [address] Dr. Ty Hicks CRPon 10-09-2022 CRP 3.5 mg/dL Critically high <=1.0 [facility] Comment on above: Performed By: #### C K, BUN, CRP, CREA #### [facility] [address] [place] [address] Dr. Ty Hicks FERRITINon 10-09-2022 Ferritin [Mass/Vol] 134.0 ng/mL Normal 8.0-252.0 [facility] Comment on above: Performed By: #### C K, BUN, CRP, CREA #### [facility] [address] [place] [address] Dr. Ty Hicks IRON AND TIBCon 10-09-2022 % SATURATION 8.0 % Normal [facility] Comment on above: Performed By: #### C K, BUN, CRP, CREA #### [facility] [address] [address] [address] Ty Hicks Iron [Mass/Vol] 22.0 ug/dL Critically low 50.0-170.0 [facility] Comment on above: Performed By: #### C K, BUN, CRP, CREA #### [facility] [address] [place] [address] Dr. Ty Hicks TIBC DIRECT 275.0 ug/dL Normal 250.0-450. 0 [facility] Comment on above: Performed By: #### C K, BUN, CRP, CREA #### [facility] [address] [place] [address] Dr. Ty Hicks BUNon 10-02-2022 Urea nitrogen [Mass/Vol] 23.0 mg/dL Critically high 7.0-18.0 [facility] Comment on above: Performed By: #### C RP, CREA, BUN, CK #### [facility] [address] [place] [address] Dr. Ty Hicks CBC AUTO DIFFon 10-02-2022 BASO # 0.1 103/ul Normal 0.0-0.1 [facility] Comment on above: Performed By: #### C K, BUN, CRP, CREA #### [facility] [address] [place] [address] Dr. Ty Hicks Basophils/100 WBC (Bld) 0.8 % Normal 0.2-2.0 [facility] Comment on above: Performed By: #### C K, BUN, CRP, CREA #### [facility] [address] [place] [address] Dr. Ty Hicks EO # 0.3 103/ul Normal 0.0-0.7 [facility] Comment on above: Performed By: #### C K, BUN, CRP, CREA #### [facility] [address] [place] [address] Dr. Ty Hicks Eosinophils/100 WBC (Bld) 3.2 % Normal 0.9-7.0 [facility] Comment on above: Performed By: #### C K, BUN, CRP, CREA #### [facility] [address] [place] [address] Dr. Ty Hicks Erythrocyte distribution width (RBC) [Ratio] 15.6 % Critically high 11.0-15.0 [facility] Comment on above: Performed By: #### C K, BUN, CRP, CREA #### [facility] [address] [place] [address] Dr. Ty Hicks Hematocrit (Bld) [Volume fraction] 28.6 % Critically low 36.0-48.0 [facility] Comment on above: Performed By: #### C K, BUN, CRP, CREA #### [facility] [address] [place] [address] Dr. Ty Hicks Hemoglobin (Bld) [Mass/Vol] 8.7 g/dL Critically low 12.0-16.0 [facility] Comment on above: Performed By: #### C K, BUN, CRP, CREA #### [facility] [address] [place] [address] Dr. Ty Hicks IG # 0.03 10e3/ul Normal 0.00-0.03 [facility] Comment on above: Performed By: #### C K, BUN, CRP, CREA #### [facility] [address] [place] [address] Dr. Ty iHcks IG % 0.4 % Normal 0.0-0.5 [facility] Comment on above: Performed By: #### C K, BUN, CRP, CREA #### [facility] [address] [place] [address] Dr. Ty Hicks LYMPH # 2.0 103/ul Normal 1.2-3.8 [facility] Comment on above: Performed By: #### C K, BUN, CRP, CREA #### [facility] [address] [place] [address] Dr. Ty Hicks Lymphocytes/100 WBC (Bld) 24.2 % Normal 20.5-60.0 [facility] Comment on above: Performed By: #### C K, BUN, CRP, CREA #### [facility] [address] [place] [address] Dr. Ty Hicks MANUAL DIFF REQ NO Normal [facility] Comment on above: Performed By: #### C K, BUN, CRP, CREA #### [facility] [address] [place] [address] Dr. Ty Hicks MCH (RBC) [Entitic mass] 28.9 pg Normal 26.7-34.0 [facility] Comment on above: Performed By: #### C K, BUN, CRP, CREA #### [facility] [address] [place] [address] Dr. Ty Hicks MCHC (RBC) [Mass/Vol] 30.4 g/dL Normal 29.9-35.2 [facility] Comment on above: Performed By: #### C K, BUN, CRP, CREA #### [facility] [address] [place] [address] Dr. Ty Hicks MCV (RBC) [Entitic vol] 95.0 fL Normal 81.0-99.0 [facility] Comment on above: Performed By: #### C K, BUN, CRP, CREA #### [facility] [address] [place] [address] Dr. Ty Hicks MONO # 0.9 103/ul Critically high 0.3-0.8 [facility] Comment on above: Performed By: #### C K, BUN, CRP, CREA #### [facility] [address] [place] [address] Dr. Ty Hicks Monocytes/100 WBC (Bld) 10.7 % Normal 1.7-12.0 [facility] Comment on above: Performed By: #### C K, BUN, CRP, CREA #### [facility] [address] [place] [address] Dr. Ty Hicks NEUT # 5.1 103/ul Normal 1.4-6.5 [facility] Comment on above: Performed By: #### C K, BUN, CRP, CREA #### [facility] [address] [place] [address] Dr. Ty Hicks Neutrophils/100 WBC (Bld) 60.7 % Normal 43.0-75.0 [facility] Comment on above: Performed By: #### C K, BUN, CRP, CREA #### [facility] [address] [place] [address] Dr. Ty Hicks Platelet mean volume (Bld) [Entitic vol] 9.1 fL Critically low 9.5-13.5 [facility] Comment on above: Performed By: #### C K, BUN, CRP, CREA #### [facility] [address] [place] [address] Dr. Ty Hicks PLT 485 103/ul Critically high 150-450 [facility] Comment on above: Performed By: #### C K, BUN, CRP, CREA #### [facility] [address] [address] [address] Ty Hicks RBC 3.01 106/ul Critically low 4.20-5.40 [facility] Comment on above: Performed By: #### C K, BUN, CRP, CREA #### [facility] [address] [place] [address] Dr. Ty Hicks WBC 8.3 103/ul Normal 4.0-11.0 [facility] Comment on above: Performed By: #### C K, BUN, CRP, CREA #### [facility] [address] [place] [address] Dr. Ty Hicks CPKon 10-02-2022 CK [Catalytic activity/Vol] 69 U/L Normal 26-192 [facility] Comment on above: Performed By: #### C RP, CREA, BUN, CK #### [facility] [address] [place] [address] Dr. Ty Hicks CREATININEon 10-02-2022 Creatinine [Mass/Vol] 1.29 mg/dL Critically high 0.55-1.02 [facility] Comment on above: Performed By: #### C RP, CREA, BUN, CK #### [facility] [address] [place] [address] Dr. Ty Hicks EGFR-AF OMANI 48 mL/min/1.73m2 Critically low >=60 [facility] Comment on above: Performed By: #### C RP, CREA, BUN, CK #### [facility] [address] [place] [address] Dr. Ty Hicks EGFR-NON AF OMANI 40 mL/min/1.73m2 Critically low >=60 [facility] Comment on above: Performed By: #### C RP, CREA, BUN, CK #### [facility] [address] [place] [address] Dr. Ty Hicks CRPon 10-02-2022 CRP 1.7 mg/dL Critically high <=1.0 [facility] Comment on above: Performed By: #### C RP, CREA, BUN, CK #### [facility] [address] [place] [address] Dr. Ty Hicks FERRITINon 10-02-2022 Ferritin [Mass/Vol] 150.0 ng/mL Normal 8.0-252.0 [facility] Comment on above: Performed By: #### C K, BUN, CRP, CREA #### [facility] [address] [place] [address] Dr. Ty Hicks IRON AND TIBCon 10-02-2022 % SATURATION 12.6 % Normal [facility] Comment on above: Performed By: #### C K, BUN, CRP, CREA #### [facility] [address] [place] [address] Dr. Ty Hicks Iron [Mass/Vol] 25.0 ug/dL Critically low 50.0-170.0 [facility] Comment on above: Performed By: #### C K, BUN, CRP, CREA #### [facility] [address] [place] [address] Dr. Ty Hicks TIBC DIRECT 199.0 ug/dL Critically low 250.0-450. 0 [facility] Comment on above: Performed By: #### C K, BUN, CRP, CREA #### [facility] [address] [place] [address] Dr. Ty Hicks BUNon 09-25-2022 Urea nitrogen [Mass/Vol] 20.0 mg/dL Critically high 7.0-18.0 [facility] Comment on above: Performed By: #### C RP, CREA, BUN, CK #### [facility] [address] [place] [address] Dr. Ty Hicks CBC AUTO DIFFon 09-25-2022 BASO # 0.1 103/ul Normal 0.0-0.1 [facility] Comment on above: Performed By: #### C RP, CREA, BUN, CK #### [facility] [address] [place] [address] Dr. Ty Hicks Basophils/100 WBC (Bld) 0.5 % Normal 0.2-2.0 [facility] Comment on above: Performed By: #### C RP, CREA, BUN, CK #### [facility] [address] [place] [address] Dr. Ty Hicks EO # 0.4 103/ul Normal 0.0-0.7 [facility] Comment on above: Performed By: #### C RP, CREA, BUN, CK #### [facility] [address] [place] [address] Dr. Ty Hicks Eosinophils/100 WBC (Bld) 3.7 % Normal 0.9-7.0 [facility] Comment on above: Performed By: #### C RP, CREA, BUN, CK #### [facility] [address] [place] [address] Dr. Ty Hicks Erythrocyte distribution width (RBC) [Ratio] 15.6 % Critically high 11.0-15.0 [facility] Comment on above: Performed By: #### C RP, CREA, BUN, CK #### [facility] [address] [place] [address] Dr. Ty Hicks Hematocrit (Bld) [Volume fraction] 27.5 % Critically low 36.0-48.0 [facility] Comment on above: Performed By: #### C RP, CREA, BUN, CK #### [facility] [address] [place] [address] Dr. Ty Hicks Hemoglobin (Bld) [Mass/Vol] 8.2 g/dL Critically low 12.0-16.0 [facility] Comment on above: Performed By: #### C RP, CREA, BUN, CK #### [facility] [address] [place] [address] Dr. Ty Hicks IG # 0.04 10e3/ul Critically high 0.00-0.03 [facility] Comment on above: Performed By: #### C RP, CREA, BUN, CK #### [facility] [address] [place] [address] Dr. Ty Hicks IG % 0.4 % Normal 0.0-0.5 [facility] Comment on above: Performed By: #### C RP, CREA, BUN, CK #### [facility] [address] [place] [address] Dr. Ty Hicks LYMPH # 1.5 103/ul Normal 1.2-3.8 [facility] Comment on above: Performed By: #### C RP, CREA, BUN, CK #### [facility] [address] [place] [address] Dr. Ty Hicks Lymphocytes/100 WBC (Bld) 16.0 % Critically low 20.5-60.0 [facility] Comment on above: Performed By: #### C RP, CREA, BUN, CK #### [facility] [address] [place] [address] Dr. Ty Hicks MANUAL DIFF REQ NO Normal [facility] Comment on above: Performed By: #### C RP, CREA, BUN, CK #### [facility] [address] [place] [address] Dr. Ty Hicks MCH (RBC) [Entitic mass] 28.5 pg Normal 26.7-34.0 [facility] Comment on above: Performed By: #### C RP, CREA, BUN, CK #### [facility] [address] [place] [address] Dr. yT Hicks MCHC (RBC) [Mass/Vol] 29.8 g/dL Critically low 29.9-35.2 [facility] Comment on above: Performed By: #### C RP, CREA, BUN, CK #### [facility] [address] [place] [address] Dr. Ty Hicks MCV (RBC) [Entitic vol] 95.5 fL Normal 81.0-99.0 [facility] Comment on above: Performed By: #### C RP, CREA, BUN, CK #### [facility] [address] [place] [address] Dr. Ty Hicks MONO # 0.7 103/ul Normal 0.3-0.8 [facility] Comment on above: Performed By: #### C RP, CREA, BUN, CK #### [facility] [address] [place] [address] Dr. Ty Hicks Monocytes/100 WBC (Bld) 7.4 % Normal 1.7-12.0 [facility] Comment on above: Performed By: #### C RP, CREA, BUN, CK #### [facility] [address] [place] [address] Dr. Ty Hicks NEUT # 6.9 103/ul Critically high 1.4-6.5 [facility] Comment on above: Performed By: #### C RP, CREA, BUN, CK #### [facility] [address] [place] [address] Dr. Ty Hicks Neutrophils/100 WBC (Bld) 72.0 % Normal 43.0-75.0 [facility] Comment on above: Performed By: #### C RP, CREA, BUN, CK #### [facility] [address] [place] [address] Dr. Ty Hicks Platelet mean volume (Bld) [Entitic vol] 8.6 fL Critically low 9.5-13.5 [facility] Comment on above: Performed By: #### C RP, CREA, BUN, CK #### [facility] [address] [place] [address] Dr. Ty Hicks PLT 499 103/ul Critically high 150-450 [facility] Comment on above: Performed By: #### C RP, CREA, BUN, CK #### [facility] [address] [place] [address] Dr. Ty Hicks RBC 2.88 106/ul Critically low 4.20-5.40 [facility] Comment on above: Performed By: #### C RP, CREA, BUN, CK #### [facility] [address] [place] [address] Dr. Ty Hicks WBC 9.6 103/ul Normal 4.0-11.0 [facility] Comment on above: Performed By: #### C RP, CREA, BUN, CK #### [facility] [address] [place] [address] Dr. Ty Hicks CPKon 09-25-2022 CK [Catalytic activity/Vol] 56 U/L Normal 26-192 [facility] Comment on above: Performed By: #### C RP, CREA, BUN, CK #### [facility] [address] [place] [address] Dr. Ty Hicks CREATININEon 09-25-2022 Creatinine [Mass/Vol] 1.23 mg/dL Critically high 0.55-1.02 [facility] Comment on above: Performed By: #### C RP, CREA, BUN, CK #### [facility] [address] [place] [address] Dr. Ty Hicks EGFR-AF OMANI 51 mL/min/1.73m2 Critically low >=60 [facility] Comment on above: Performed By: #### C RP, CREA, BUN, CK #### [facility] [address] [place] [address] Dr. Ty Hicks EGFR-NON AF OMANI 42 mL/min/1.73m2 Critically low >=60 [facility] Comment on above: Performed By: #### C RP, CREA, BUN, CK #### [facility] [address] [place] [address] Dr. Ty Hicks CRPon 09-25-2022 CRP 0.9 mg/dL Normal <=1.0 [facility] Comment on above: Performed By: #### C RP, CREA, BUN, CK #### [facility] [address] [place] [address] Dr. Ty Hicks PRBC LEUKOREDUCEDon 09-20-19 23 ABO and Rh group Nom (Bld) Cross Match Result Compatible Unit Blood Type A Neg Unit Number [id number] Status Information Issued Product ID Red Blood Cells Product Code [id number] Issue Date/Time [id number] Normal [facility] Comment on above: Performed By: #### C RP, CREA, BUN, CK #### [facility] [address] [place] [address] Dr. Ty Hicks BUNon 09-18-2022 Urea nitrogen [Mass/Vol] 14.0 mg/dL Normal 7.0-18.0 [facility] Comment on above: Performed By: #### C RP, CREA, BUN, CK #### [facility] [address] [place] [address] Dr. Ty Hicks CBC AUTO DIFFon 09-18-2022 BASO # 0.1 103/ul Normal 0.0-0.1 [facility] Comment on above: Performed By: #### C BC #### [facility] [address] [place] [address] Dr. Ty Hicks Basophils/100 WBC (Bld) 0.5 % Normal 0.2-2.0 [facility] Comment on above: Performed By: #### C BC #### [facility] [address] [place] [address] Dr. Ty Hicks EO # 0.3 103/ul Normal 0.0-0.7 [facility] Comment on above: Performed By: #### C BC #### [facility] [address] [place] [address] Dr. Ty Hicks Eosinophils/100 WBC (Bld) 3.2 % Normal 0.9-7.0 [facility] Comment on above: Performed By: #### C BC #### [facility] [address] [place] [address] Dr. Ty Hicks Erythrocyte distribution width (RBC) [Ratio] 16.1 % Critically high 11.0-15.0 [facility] Comment on above: Performed By: #### C BC #### [facility] [address] [place] [address] Dr. Ty Hicks Hematocrit (Bld) [Volume fraction] 22.8 % Critically low 36.0-48.0 [facility] Comment on above: Performed By: #### C BC #### [facility] [address] [place] [address] Dr. Ty Hicks Hemoglobin (Bld) [Mass/Vol] 6.8 g/dL Critically low 12.0-16.0 [facility] Comment on above: Performed By: #### C BC #### [facility] [address] [place] [address] Dr. Ty Hicks IG # 0.15 10e3/ul Critically high 0.00-0.03 [facility] Comment on above: Performed By: #### C BC #### [facility] [address] [place] [address] Dr. Ty Hicks IG % 1.5 % Critically high 0.0-0.5 [facility] Comment on above: Performed By: #### C BC #### [facility] [address] [place] [address] Dr. Ty Hicks LYMPH # 2.1 103/ul Normal 1.2-3.8 [facility] Comment on above: Performed By: #### C BC #### [facility] [address] [place] [address] Dr. Ty Hicks Lymphocytes/100 WBC (Bld) 20.8 % Normal 20.5-60.0 [facility] Comment on above: Performed By: #### C BC #### [facility] [address] [place] [address] Dr. Ty Hicks MANUAL DIFF REQ NO Normal [facility] Comment on above: Performed By: #### C BC #### [facility] [address] [place] [address] Dr. Ty Hicks MCH (RBC) [Entitic mass] 28.5 pg Normal 26.7-34.0 [facility] Comment on above: Performed By: #### C BC #### [facility] [address] [place] [address] Dr. Ty Hicks MCHC (RBC) [Mass/Vol] 29.8 g/dL Critically low 29.9-35.2 [facility] Comment on above: Performed By: #### C BC #### [facility] [address] [place] [address] Dr. Ty Hicks MCV (RBC) [Entitic vol] 95.4 fL Normal 81.0-99.0 [facility] Comment on above: Performed By: #### C BC #### [facility] [address] [place] [address] Dr. Ty Hicks MONO # 1.0 103/ul Critically high 0.3-0.8 [facility] Comment on above: Performed By: #### C BC #### [facility] [address] [place] [address] Dr. Ty Hicks Monocytes/100 WBC (Bld) 9.4 % Normal 1.7-12.0 [facility] Comment on above: Performed By: #### C BC #### [facility] [address] [place] [address] Dr. Ty Hicks NEUT # 6.6 103/ul Critically high 1.4-6.5 [facility] Comment on above: Performed By: #### C BC #### [facility] [address] [place] [address] Dr. Ty Hicks Neutrophils/100 WBC (Bld) 64.6 % Normal 43.0-75.0 [facility] Comment on above: Performed By: #### C BC #### [facility] [address] [place] [address] Dr. Ty Hicks Platelet mean volume (Bld) [Entitic vol] 9.1 fL Critically low 9.5-13.5 [facility] Comment on above: Performed By: #### C BC #### [facility] [address] [place] [address] Dr. Ty Hicks PLT 517 103/ul Critically high 150-450 [facility] Comment on above: Performed By: #### C BC #### [facility] [address] [place] [address] Dr. Ty Hicks RBC 2.39 106/ul Critically low 4.20-5.40 [facility] Comment on above: Performed By: #### C BC #### [facility] [address] [place] [address] Dr. Ty Hicks WBC 10.2 103/ul Normal 4.0-11.0 [facility] Comment on above: Performed By: #### C BC #### [facility] [address] [place] [address] Dr. Ty Hicks CPKon 09-18-2022 CK [Catalytic activity/Vol] 30 U/L Normal 26-192 [facility] Comment on above: Performed By: #### C RP, CREA, BUN, CK #### [facility] [address] [address] [address] Ty Hicks CREATININEon 09-18-2022 Creatinine [Mass/Vol] 1.45 mg/dL Critically high 0.55-1.02 [facility] Comment on above: Performed By: #### C RP, CREA, BUN, CK #### [facility] [address] [address] [address] Ty Hicks EGFR-AF OMANI 42 mL/min/1.73m2 Critically low >=60 [facility] Comment on above: Performed By: #### C RP, CREA, BUN, CK #### [facility] [address] [place] [address] Dr. Ty Hciks EGFR-NON AF OMANI 35 mL/min/1.73m2 Critically low >=60 [facility] Comment on above: Performed By: #### C RP, CREA, BUN, CK #### [facility] [address] [address] [address] Ty Hicks CRPon 09-18-2022 CRP 3.4 mg/dL Critically high <=1.0 [facility] Comment on above: Performed By: #### C RP, CREA, BUN, CK #### [facility] [address] [place] [address] Dr. Ty Hicks TYPE AND SCREENon 09-18-2022 TYPE AND SCREEN Negative Normal [facility] Comment on above: Performed By: #### C RP, CREA, BUN, CK #### [facility] [address] [place] [address] Dr. Ty Hicks 36on 09-17-[address] Coe, Please add Amoxicillin 1 G po Bid for 4 weeks. May extend and additional week after. Called to [place] at [facility]. Normal [facility] 37on 09-17-2022 37 Repeat labs including CRP Normal [facility] Follow-Upon 09-17-2022 Follow-Up Normal [facility] CBC AUTO DIFFon 09-16-2022 BASO # 0.0 103/ul Normal 0.0-0.1 [facility] Comment on above: Performed By: #### C BC #### [facility] [address] [address] [address] Ty Hicks Basophils/100 WBC (Bld) 0.4 % Normal 0.2-2.0 [facility] Comment on above: Performed By: #### C BC #### [facility] [address] [address] [address] Ty Hicks EO # 0.4 103/ul Normal 0.0-0.7 [facility] Comment on above: Performed By: #### C BC #### [facility] [address] [place] [address] Dr. Ty Hicks Eosinophils/100 WBC (Bld) 3.7 % Normal 0.9-7.0 [facility] Comment on above: Performed By: #### C BC #### [facility] [address] [address] [address] Ty Hicks Erythrocyte distribution width (RBC) [Ratio] 15.5 % Critically high 11.0-15.0 [facility] Comment on above: Performed By: #### C BC #### [facility] [address] [place] [address] Dr. Ty Hicks Hematocrit (Bld) [Volume fraction] 25.4 % Critically low 36.0-48.0 [facility] Comment on above: Performed By: #### C BC #### [facility] [address] [address] [address] Ty Hicks Hemoglobin (Bld) [Mass/Vol] 7.6 g/dL Critically low 12.0-16.0 [facility] Comment on above: Performed By: #### C BC #### [facility] [address] [place] [address] Dr. Ty Hicks IG # 0.16 10e3/ul Critically high 0.00-0.03 [facility] Comment on above: Performed By: #### C BC #### [facility] [address] [place] [address] Dr. Ty Hicks IG % 1.5 % Critically high 0.0-0.5 [facility] Comment on above: Performed By: #### C BC #### [facility] [address] [place] [address] Dr. Ty Hicks LYMPH # 2.6 103/ul Normal 1.2-3.8 [facility] Comment on above: Performed By: #### C BC #### [facility] [address] [place] [address] Dr. Ty Hicks Lymphocytes/100 WBC (Bld) 24.2 % Normal 20.5-60.0 [facility] Comment on above: Performed By: #### C BC #### [facility] [address] [place] [address] Dr. Ty Hicks MANUAL DIFF REQ NO Normal [facility] Comment on above: Performed By: #### C BC #### [facility] [address] [place] [address] Dr. Ty Hicks MCH (RBC) [Entitic mass] 28.3 pg Normal 26.7-34.0 [facility] Comment on above: Performed By: #### C BC #### [facility] [address] [place] [address] Dr. Ty Hicks MCHC (RBC) [Mass/Vol] 29.9 g/dL Normal 29.9-35.2 [facility] Comment on above: Performed By: #### C BC #### [facility] [address] [place] [address] Dr. Ty Hicks MCV (RBC) [Entitic vol] 94.4 fL Normal 81.0-99.0 [facility] Comment on above: Performed By: #### C BC #### [facility] [address] [place] [address] Dr. Ty Hikcs MONO # 1.1 103/ul Critically high 0.3-0.8 [facility] Comment on above: Performed By: #### C BC #### [facility] [address] [place] [address] Dr. Ty Hicks Monocytes/100 WBC (Bld) 10.4 % Normal 1.7-12.0 [facility] Comment on above: Performed By: #### C BC #### [facility] [address] [address] [address] Ty Hicks NEUT # 6.3 103/ul Normal 1.4-6.5 [facility] Comment on above: Performed By: #### C BC #### [facility] [address] [address] [address] Ty Hicks Neutrophils/100 WBC (Bld) 59.8 % Normal 43.0-75.0 [facility] Comment on above: Performed By: #### C BC #### [facility] [address] [place] [address] Dr. Ty Hicks Platelet mean volume (Bld) [Entitic vol] 9.1 fL Critically low 9.5-13.5 [facility] Comment on above: Performed By: #### C BC #### [facility] [address] [place] [address] Dr. Ty Hicks PLT 526 103/ul Critically high 150-450 [facility] Comment on above: Performed By: #### C BC #### [facility] [address] [place] [address] Dr. Ty Hicks RBC 2.69 106/ul Critically low 4.20-5.40 [facility] Comment on above: Performed By: #### C BC #### [facility] [address] [place] [address] Dr. Ty Hicks WBC 10.6 103/ul Normal 4.0-11.0 [facility] Comment on above: Performed By: #### C BC #### [facility] [address] [place] [address] Dr. Ty Hicks 36on 09-13-2022 36 Call from nursing ho me that pt can't tolerate Ceftriaxone having vomiting and diarrhea. Per Dr Hdez stop Ceftriaxone and let pt rest this weekend to feel better. She will call Mon with order for Cipro. Normal [facility] 36on 09-12-2022 36 Normal [facility] FERRITINon 09-12-2022 Ferritin [Mass/Vol] 243.0 ng/mL Normal 8.0-252.0 [facility] Comment on above: Performed By: #### C RP, CREA, BUN, CK #### [facility] [address] [place] [address] Dr. Ty Hicks IRON AND TIBCon 09-12-2022 % SATURATION 6.4 % Normal [facility] Comment on above: Performed By: #### C RP, CREA, BUN, CK #### [facility] [address] [place] [address] Dr. Ty Hicks Iron [Mass/Vol] 10.0 ug/dL Critically low 50.0-170.0 [facility] Comment on above: Performed By: #### C RP, CREA, BUN, CK #### [facility] [address] [place] [address] Dr. Ty Hicks TIBC DIRECT 156.0 ug/dL Critically low 250.0-450. 0 [facility] Comment on above: Performed By: #### C RP, CREA, BUN, CK #### [facility] [address] [place] [address] Dr. Ty Hicks OCC BLD IMMUNO SCREENon 08-25 OCCULT BLOOD Positive Abnormal NEGATIVE [facility] Comment on above: Performed By: #### C RP, CREA, BUN, CK #### [facility] [address] [place] [address] Dr. Ty Hicks VIT B12 AND FOLATEon 023 Cobalamin (Vitamin B12) [Mass/Vol] 428.0 pg/mL Normal 193.0-986. 0 [facility] Comment on above: Performed By: #### C RP, CREA, BUN, CK #### [facility] [address] [place] [address] Dr. Ty Hicks FOLATE 22.00 ng/mL Normal 8.60-58.90 [facility] Comment on above: Performed By: #### C RP, CREA, BUN, CK #### [facility] [address] [place] [address] Dr. Ty Hicks 36on 09-11-2022 36 Normal [facility] BUNon 09-11-2022 Urea nitrogen [Mass/Vol] 23.0 mg/dL Critically high 7.0-18.0 [facility] Comment on above: Performed By: #### C BC #### [facility] [address] [place] [address] Dr. Ty Hicks CBC AUTO DIFFon 09-11-2022 BASO # 0.1 103/ul Normal 0.0-0.1 [facility] Comment on above: Performed By: #### C K, BUN, CRP, CREA #### [facility] [address] [place] [address] Dr. Ty Hicks Basophils/100 WBC (Bld) 0.5 % Normal 0.2-2.0 [facility] Comment on above: Performed By: #### C K, BUN, CRP, CREA #### [facility] [address] [place] [address] Dr. Ty Hicks EO # 0.1 103/ul Normal 0.0-0.7 [facility] Comment on above: Performed By: #### C K, BUN, CRP, CREA #### [facility] [address] [place] [address] Dr. Ty Hicks Eosinophils/100 WBC (Bld) 1.3 % Normal 0.9-7.0 [facility] Comment on above: Performed By: #### C K, BUN, CRP, CREA #### [facility] [address] [place] [address] Dr. Ty Hicks Erythrocyte distribution width (RBC) [Ratio] 15.4 % Critically high 11.0-15.0 [facility] Comment on above: Performed By: #### C K, BUN, CRP, CREA #### [facility] [address] [place] [address] Dr. Ty Hicks Hematocrit (Bld) [Volume fraction] 24.4 % Critically low 36.0-48.0 [facility] Comment on above: Performed By: #### C K, BUN, CRP, CREA #### [facility] [address] [place] [address] Dr. Ty Hicks Hemoglobin (Bld) [Mass/Vol] 7.4 g/dL Critically low 12.0-16.0 [facility] Comment on above: Performed By: #### C K, BUN, CRP, CREA #### [facility] [address] [place] [address] Dr. Ty Hicks IG # 0.05 10e3/ul Critically high 0.00-0.03 [facility] Comment on above: Performed By: #### C K, BUN, CRP, CREA #### [facility] [address] [place] [address] Dr. Ty Hicks IG % 0.5 % Normal 0.0-0.5 [facility] Comment on above: Performed By: #### C K, BUN, CRP, CREA #### [facility] [address] [place] [address] Dr. Ty Hicks LYMPH # 1.3 103/ul Normal 1.2-3.8 [facility] Comment on above: Performed By: #### C K, BUN, CRP, CREA #### [facility] [address] [place] [address] Dr. Ty Hicks Lymphocytes/100 WBC (Bld) 11.9 % Critically low 20.5-60.0 [facility] Comment on above: Performed By: #### C K, BUN, CRP, CREA #### [facility] [address] [place] [address] Dr. Ty Hicks MANUAL DIFF REQ NO Normal [facility] Comment on above: Performed By: #### C K, BUN, CRP, CREA #### [facility] [address] [place] [address] Dr. Ty Hicks MCH (RBC) [Entitic mass] 29.0 pg Normal 26.7-34.0 [facility] Comment on above: Performed By: #### C K, BUN, CRP, CREA #### [facility] [address] [place] [address] Dr. Ty Hicks MCHC (RBC) [Mass/Vol] 30.3 g/dL Normal 29.9-35.2 [facility] Comment on above: Performed By: #### C K, BUN, CRP, CREA #### [facility] [address] [place] [address] Dr. Ty Hicks MCV (RBC) [Entitic vol] 95.7 fL Normal 81.0-99.0 [facility] Comment on above: Performed By: #### C K, BUN, CRP, CREA #### [facility] [address] [place] [address] Dr. Ty Hicks MONO # 1.1 103/ul Critically high 0.3-0.8 [facility] Comment on above: Performed By: #### C K, BUN, CRP, CREA #### [facility] [address] [place] [address] Dr. Ty Hicks Monocytes/100 WBC (Bld) 10.3 % Normal 1.7-12.0 [facility] Comment on above: Performed By: #### C K, BUN, CRP, CREA #### [facility] [address] [place] [address] Dr. Ty Hicks NEUT # 8.3 103/ul Critically high 1.4-6.5 [facility] Comment on above: Performed By: #### C K, BUN, CRP, CREA #### [facility] [address] [place] [address] Dr. Ty Hicks Neutrophils/100 WBC (Bld) 75.5 % Critically high 43.0-75.0 [facility] Comment on above: Performed By: #### C K, BUN, CRP, CREA #### [facility] [address] [place] [address] Dr. Ty Hicks Platelet mean volume (Bld) [Entitic vol] 9.2 fL Critically low 9.5-13.5 [facility] Comment on above: Performed By: #### C K, BUN, CRP, CREA #### [facility] [address] [address] [address] Ty Hicks PLT 465 103/ul Critically high 150-450 [facility] Comment on above: Performed By: #### C K, BUN, CRP, CREA #### [facility] [address] [place] [address] Dr. Ty Hicks RBC 2.55 106/ul Critically low 4.20-5.40 [facility] Comment on above: Performed By: #### C K, BUN, CRP, CREA #### [facility] [address] [place] [address] Dr. Ty Hicks WBC 11.0 103/ul Normal 4.0-11.0 [facility] Comment on above: Performed By: #### C K, BUN, CRP, CREA #### [facility] [address] [place] [address] Dr. Ty Hicks CPKon 09-11-2022 CK [Catalytic activity/Vol] 49 U/L Normal 26-192 [facility] Comment on above: Performed By: #### C BC #### [facility] [address] [place] [address] Dr. Ty Hicks CREATININEon 09-11-2022 Creatinine [Mass/Vol] 1.48 mg/dL Critically high 0.55-1.02 [facility] Comment on above: Performed By: #### C BC #### [facility] [address] [place] [address] Dr. Ty Hicks EGFR-AF OMANI 41 mL/min/1.73m2 Critically low >=60 [facility] Comment on above: Performed By: #### C BC #### [facility] [address] [place] [address] Dr. Ty Hicks EGFR-NON AF OMANI 34 mL/min/1.73m2 Critically low >=60 [facility] Comment on above: Performed By: #### C BC #### [facility] [address] [place] [address] Dr. Ty Hicks CRPon 09-11-2022 CRP 5.4 mg/dL Critically high <=1.0 [facility] Comment on above: Performed By: #### C BC #### [facility] [address] [address] [address] Ty Hicks [id number] 09-10-2022 [id number] Normal [facility] 29on 09-10-2022 29 Addendum created 1212 by Rema Aguayo MD Order list changed, Pharmacy for encounter modified Normal [facility] ANESon 09-10-2022 ANES Normal [facility] ANES Normal [facility] Anesthesiaon 09-10-2022 Anesthesia [id number] CarlosNeda bright 1945 F Date Provider Department Center 09/10/2022 CYNTHIA FELDMAN [facility] [place] Medical Family History Family history unknown: Yes Normal [facility] BODY FLUID CULTUREon 023 Bacteria identified Cx Nom (Unsp spec) Abnormal [facility] Comment on above: Order Comment: Pre-o p diagnosis:Disruption of external operation (surgical) wound, not elsewhere classified, sequela [T81.31XS] Result Comment: ESCH ERICHIA COLILight Growth Escherichia coliSusceptibility to FollowCORYNEBACTERIUM STRIATUM GROUPRare Growth Corynebacterium striatum group Performed By: #### L [id number] ####[facility] [place] [address] GRAM STAIN RESULT Abnormal [facility] Comment on above: Order Comment: Pre-o p diagnosis:Disruption of external operation (surgical) wound, not elsewhere classified, sequela [T81.31XS] Result Comment: Mode rate Polymorphonuclear leukocytesNo organisms seen Performed By: #### L [id number] ####[facility] [place] [address] HPon 09-10-2022 HP Normal [facility] NURSNOTEon 09-10-2022 NURSNOTE [facility] OPNOTEon 09-10-2022 OPNOTE [facility] POCT GLUCOSE METER UNSOLICIT ED RESULTSon 09-10-2022 Glucose [Mass/Vol] 93 mg/dL Normal 70-105 [facility] Comment on above: Result Comment: epaw low Performed By: #### L [id number] ####[facility] ([facility])[address] [place] [address] TISSUE CULTUREon 09-10-2022 Bacteria identified Cx Nom (Unsp spec) Abnormal [facility] Comment on above: Order Comment: Pre-o p diagnosis:Disruption of external operation (surgical) wound, not elsewhere classified, sequela [T81.31XS] Result Comment: ESCH ERICHIA COLIRare Growth Escherichia coliFor Susceptibility Results Please Refer to STRIATUM GROUPRare Growth Corynebacterium striatum group Performed By: #### L [id number] ####[facility] ([facility])[address] [place] [address] GRAM STAIN RESULT Normal [facility] Comment on above: Order Comment: Pre-o p diagnosis:Disruption of external operation (surgical) wound, not elsewhere classified, sequela [T81.31XS] Result Comment: Many Polymorphonuclear leukocytesNo organisms seen Performed By: #### L [id number] ####[facility] ([facility])[address] [place] [address] 36on 09-06-2022 36 Labs uploaded to [place] [employer]. Creat: 09/06 1.57 09/04 1.7 4 1.37 Normal [facility] BUNon 09-06-2022 Urea nitrogen [Mass/Vol] 27.0 mg/dL Critically high 7.0-18.0 [facility] Comment on above: Performed By: #### C RP, CREA, BUN, CK #### [facility] [address] [address] [address] Ty Hicks CBC AUTO DIFFon 09-06-2022 BASO # 0.1 103/ul Normal 0.0-0.1 [facility] Comment on above: Performed By: #### C RP, CREA, BUN, CK #### [facility] [address] [address] [address] Ty Hicks Basophils/100 WBC (Bld) 0.6 % Normal 0.2-2.0 [facility] Comment on above: Performed By: #### C RP, CREA, BUN, CK #### [facility] [address] [place] [address] Dr. Ty Hicks EO # 0.3 103/ul Normal 0.0-0.7 [facility] Comment on above: Performed By: #### C RP, CREA, BUN, CK #### [facility] [address] [place] [address] Dr. Ty Hicks Eosinophils/100 WBC (Bld) 2.9 % Normal 0.9-7.0 [facility] Comment on above: Performed By: #### C RP, CREA, BUN, CK #### [facility] [address] [place] [address] Dr. Ty Hicks Erythrocyte distribution width (RBC) [Ratio] 15.8 % Critically high 11.0-15.0 [facility] Comment on above: Performed By: #### C RP, CREA, BUN, CK #### [facility] [address] [place] [address] Dr. Ty Hicks Hematocrit (Bld) [Volume fraction] 27.4 % Critically low 36.0-48.0 [facility] Comment on above: Performed By: #### C RP, CREA, BUN, CK #### [facility] [address] [place] [address] Dr. Ty Hicks Hemoglobin (Bld) [Mass/Vol] 8.5 g/dL Critically low 12.0-16.0 [facility] Comment on above: Performed By: #### C RP, CREA, BUN, CK #### [facility] [address] [place] [address] Dr. Ty Hicks IG # 0.06 10e3/ul Critically high 0.00-0.03 [facility] Comment on above: Performed By: #### C RP, CREA, BUN, CK #### [facility] [address] [place] [address] Dr. Ty Hicks IG % 0.6 % Critically high 0.0-0.5 [facility] Comment on above: Performed By: #### C RP, CREA, BUN, CK #### [facility] [address] [place] [address] Dr. Ty Hicks LYMPH # 1.9 103/ul Normal 1.2-3.8 [facility] Comment on above: Performed By: #### C RP, CREA, BUN, CK #### [facility] [address] [place] [address] Dr. Ty Hicks Lymphocytes/100 WBC (Bld) 20.0 % Critically low 20.5-60.0 [facility] Comment on above: Performed By: #### C RP, CREA, BUN, CK #### [facility] [address] [place] [address] Dr. Ty Hicks MANUAL DIFF REQ NO Normal [facility] Comment on above: Performed By: #### C RP, CREA, BUN, CK #### [facility] [address] [place] [address] Dr. Ty Hicks MCH (RBC) [Entitic mass] 28.9 pg Normal 26.7-34.0 [facility] Comment on above: Performed By: #### C RP, CREA, BUN, CK #### [facility] [address] [place] [address] Dr. Ty Hicks MCHC (RBC) [Mass/Vol] 31.0 g/dL Normal 29.9-35.2 [facility] Comment on above: Performed By: #### C RP, CREA, BUN, CK #### [facility] [address] [place] [address] Dr. Ty Hicks MCV (RBC) [Entitic vol] 93.2 fL Normal 81.0-99.0 [facility] Comment on above: Performed By: #### C RP, CREA, BUN, CK #### [facility] [address] [place] [address] Dr. Ty Hicks MONO # 0.9 103/ul Critically high 0.3-0.8 [facility] Comment on above: Performed By: #### C RP, CREA, BUN, CK #### [facility] [address] [place] [address] Dr. Ty Hicks Monocytes/100 WBC (Bld) 8.8 % Normal 1.7-12.0 [facility] Comment on above: Performed By: #### C RP, CREA, BUN, CK #### [facility] [address] [place] [address] Dr. Ty Hicks NEUT # 6.5 103/ul Normal 1.4-6.5 [facility] Comment on above: Performed By: #### C RP, CREA, BUN, CK #### [facility] [address] [place] [address] Dr. Ty Hicks Neutrophils/100 WBC (Bld) 67.1 % Normal 43.0-75.0 [facility] Comment on above: Performed By: #### C RP, CREA, BUN, CK #### [facility] [address] [place] [address] Dr. Ty Hicks Platelet mean volume (Bld) [Entitic vol] 8.9 fL Critically low 9.5-13.5 [facility] Comment on above: Performed By: #### C RP, CREA, BUN, CK #### [facility] [address] [place] [address] Dr. Ty Hicks PLT 542 103/ul Critically high 150-450 [facility] Comment on above: Performed By: #### C RP, CREA, BUN, CK #### [facility] [address] [place] [address] Dr. Ty Hicks RBC 2.94 106/ul Critically low 4.20-5.40 [facility] Comment on above: Performed By: #### C RP, CREA, BUN, CK #### [facility] [address] [place] [address] Dr. Ty Hicks WBC 9.6 103/ul Normal 4.0-11.0 [facility] Comment on above: Performed By: #### C RP, CREA, BUN, CK #### [facility] [address] [place] [address] Dr. Ty Hicks CPKon 09-06-2022 CK [Catalytic activity/Vol] 51 U/L Normal 26-192 [facility] Comment on above: Performed By: #### C RP, CREA, BUN, CK #### [facility] [address] [place] [address] Dr. Ty Hicks CREATININEon 09-06-2022 Creatinine [Mass/Vol] 1.57 mg/dL Critically high 0.55-1.02 [facility] Comment on above: Performed By: #### C RP, CREA, BUN, CK #### [facility] [address] [place] [address] Dr. Ty Hicks EGFR-AF OMANI 39 mL/min/1.73m2 Critically low >=60 [facility] Comment on above: Performed By: #### C RP, CREA, BUN, CK #### [facility] [address] [place] [address] Dr. Ty Hicks EGFR-NON AF OMANI 32 mL/min/1.73m2 Critically low >=60 [facility] Comment on above: Performed By: #### C RP, CREA, BUN, CK #### [facility] [address] [place] [address] Dr. Ty Hicks CRPon 09-06-2022 CRP 2.0 mg/dL Critically high <=1.0 [facility] Comment on above: Performed By: #### C RP, CREA, BUN, CK #### [facility] [address] [place] [address] Dr. Ty Hicks 36on 09-04-2022 36 Call to [facility] to obtain weekly labs. Leonor will fax results from 08/28. Will draw again today. Normal [facility] CBC AUTO DIFFon 09-04-2022 BASO # 0.1 103/ul Normal 0.0-0.1 [facility] Comment on above: Performed By: #### C RP, CREA, BUN, CK #### [facility] [address] [place] [address] Dr. Ty Hicks Basophils/100 WBC (Bld) 0.4 % Normal 0.2-2.0 [facility] Comment on above: Performed By: #### C RP, CREA, BUN, CK #### [facility] [address] [place] [address] Dr. Ty Hicks EO # 0.0 103/ul Normal 0.0-0.7 [facility] Comment on above: Performed By: #### C RP, CREA, BUN, CK #### [facility] [address] [place] [address] Dr. Ty Hicks Eosinophils/100 WBC (Bld) 0.3 % Critically low 0.9-7.0 [facility] Comment on above: Performed By: #### C RP, CREA, BUN, CK #### [facility] [address] [place] [address] Dr. Ty Hicks Erythrocyte distribution width (RBC) [Ratio] 15.8 % Critically high 11.0-15.0 [facility] Comment on above: Performed By: #### C RP, CREA, BUN, CK #### [facility] [address] [place] [address] Dr. Ty Hicks Hematocrit (Bld) [Volume fraction] 30.0 % Critically low 36.0-48.0 [facility] Comment on above: Performed By: #### C RP, CREA, BUN, CK #### [facility] [address] [place] [address] Dr. Ty Hicks Hemoglobin (Bld) [Mass/Vol] 9.5 g/dL Critically low 12.0-16.0 [facility] Comment on above: Performed By: #### C RP, CREA, BUN, CK #### [facility] [address] [place] [address] Dr. Ty Hicks IG # 0.07 10e3/ul Critically high 0.00-0.03 [facility] Comment on above: Performed By: #### C RP, CREA, BUN, CK #### [facility] [address] [place] [address] Dr. Ty Hicks IG % 0.5 % Normal 0.0-0.5 [facility] Comment on above: Performed By: #### C RP, CREA, BUN, CK #### [facility] [address] [place] [address] Dr. Ty Hicks LYMPH # 1.6 103/ul Normal 1.2-3.8 [facility] Comment on above: Performed By: #### C RP, CREA, BUN, CK #### [facility] [address] [place] [address] Dr. Ty Hicks Lymphocytes/100 WBC (Bld) 11.4 % Critically low 20.5-60.0 [facility] Comment on above: Performed By: #### C RP, CREA, BUN, CK #### [facility] [address] [place] [address] Dr. Ty Hicks MANUAL DIFF REQ NO Normal [facility] Comment on above: Performed By: #### C RP, CREA, BUN, CK #### [facility] [address] [place] [address] Dr. Ty Hicks MCH (RBC) [Entitic mass] 29.6 pg Normal 26.7-34.0 [facility] Comment on above: Performed By: #### C RP, CREA, BUN, CK #### [facility] [address] [place] [address] Dr. Ty Hicks MCHC (RBC) [Mass/Vol] 31.7 g/dL Normal 29.9-35.2 [facility] Comment on above: Performed By: #### C RP, CREA, BUN, CK #### [facility] [address] [place] [address] Dr. Ty Hicks MCV (RBC) [Entitic vol] 93.5 fL Normal 81.0-99.0 [facility] Comment on above: Performed By: #### C RP, CREA, BUN, CK #### [facility] [address] [place] [address] Dr. Ty Hicks MONO # 0.7 103/ul Normal 0.3-0.8 [facility] Comment on above: Performed By: #### C RP, CREA, BUN, CK #### [facility] [address] [place] [address] Dr. Ty Hicks Monocytes/100 WBC (Bld) 5.1 % Normal 1.7-12.0 [facility] Comment on above: Performed By: #### C RP, CREA, BUN, CK #### [facility] [address] [place] [address] Dr. Ty Hicks NEUT # 11.6 103/ul Critically high 1.4-6.5 [facility] Comment on above: Performed By: #### C RP, CREA, BUN, CK #### [facility] [address] [place] [address] Dr. Ty Hicks Neutrophils/100 WBC (Bld) 82.3 % Critically high 43.0-75.0 [facility] Comment on above: Performed By: #### C RP, CREA, BUN, CK #### [facility] [address] [place] [address] Dr. Ty Hicks Platelet mean volume (Bld) [Entitic vol] 9.1 fL Critically low 9.5-13.5 [facility] Comment on above: Performed By: #### C RP, CREA, BUN, CK #### [facility] [address] [place] [address] Dr. Ty Hicks PLT 644 103/ul Critically high 150-450 [facility] Comment on above: Performed By: #### C RP, CREA, BUN, CK #### [facility] [address] [place] [address] Dr. Ty Hicks RBC 3.21 106/ul Critically low 4.20-5.40 [facility] Comment on above: Performed By: #### C RP, CREA, BUN, CK #### [facility] [address] [place] [address] Dr. Ty Hicks WBC 14.1 103/ul Critically high 4.0-11.0 [facility] Comment on above: Performed By: #### C RP, CREA, BUN, CK #### [facility] [address] [place] [address] Dr. Ty Hicks PROF 14(COMP METB)on 023 Albumin [Mass/Vol] 2.6 g/dL Critically low 3.4-5.0 Th e [facility] Comment on above: Performed By: #### C RP, CREA, BUN, CK #### [facility] [address] [place] [address] Dr. Ty Hicks Albumin/Globulin [Mass ratio] 0.6 {ratio} Normal [facility] Comment on above: Performed By: #### C RP, CREA, BUN, CK #### [facility] [address] [place] [address] Dr. Ty Hicks ALP [Catalytic activity/Vol] 176 U/L Critically high 46-116 [facility] Comment on above: Performed By: #### C RP, CREA, BUN, CK #### [facility] [address] [place] [address] Dr. Ty Hicks ALT [Catalytic activity/Vol] 21 U/L Normal 14-59 [facility] Comment on above: Performed By: #### C RP, CREA, BUN, CK #### [facility] [address] [place] [address] Dr. Ty Hicks Anion gap [Moles/Vol] 12.7 mmol/L Normal [facility] Comment on above: Performed By: #### C RP, CREA, BUN, CK #### [facility] [address] [place] [address] Dr. Ty Hicks AST [Catalytic activity/Vol] 15 U/L Normal 15-37 [facility] Comment on above: Performed By: #### C RP, CREA, BUN, CK #### [facility] [address] [place] [address] Dr. Ty Hicks Bilirubin [Mass/Vol] 0.2 mg/dL Normal 0.2-1.0 [facility] Comment on above: Performed By: #### C RP, CREA, BUN, CK #### [facility] [address] [place] [address] Dr. Ty Hicks Calcium [Mass/Vol] 8.7 mg/dL Normal 8.5-10.1 [facility] Comment on above: Performed By: #### C RP, CREA, BUN, CK #### [facility] [address] [place] [address] Dr. Ty Hicks Chloride [Moles/Vol] 102 mmol/L Normal 98-107 [facility] Comment on above: Performed By: #### C RP, CREA, BUN, CK #### [facility] [address] [place] [address] Dr. Ty Hicks CO2 [Moles/Vol] 27.8 mmol/L Normal 21.0-32.0 [facility] Comment on above: Performed By: #### C RP, CREA, BUN, CK #### [facility] [address] [place] [address] Dr. Ty Hicks Creatinine [Mass/Vol] 1.70 mg/dL Critically high 0.55-1.02 [facility] Comment on above: Performed By: #### C RP, CREA, BUN, CK #### [facility] [address] [place] [address] Dr. Ty Hicks EGFR-AF OMANI 35 mL/min/1.73m2 Critically low >=60 [facility] Comment on above: Performed By: #### C RP, CREA, BUN, CK #### [facility] [address] [place] [address] Dr. Ty Hicks EGFR-NON AF OMANI 29 mL/min/1.73m2 Critically low >=60 [facility] Comment on above: Performed By: #### C RP, CREA, BUN, CK #### [facility] [address] [place] [address] Dr. Ty Hicks Globulin (S) [Mass/Vol] 4.2 g/dL Normal [facility] Comment on above: Performed By: #### C RP, CREA, BUN, CK #### [facility] [address] [place] [address] Dr. Ty Hicks Glucose [Mass/Vol] 141 mg/dL Critically high 74-106 [facility] Comment on above: Performed By: #### C RP, CREA, BUN, CK #### [facility] [address] [place] [address] Dr. Ty Hicks Potassium [Moles/Vol] 4.5 mmol/L Normal 3.5-5.1 [facility] Comment on above: Performed By: #### C RP, CREA, BUN, CK #### [facility] [address] [place] [address] Dr. Ty Hicks Protein [Mass/Vol] 6.8 g/dL Normal 6.4-8.2 [facility] Comment on above: Performed By: #### C RP, CREA, BUN, CK #### [facility] [address] [place] [address] Dr. Ty Hicks Sodium [Moles/Vol] 138 mmol/L Normal 136-145 [facility] Comment on above: Performed By: #### C RP, CREA, BUN, CK #### [facility] [address] [place] [address] Dr. Ty Hicks Urea nitrogen [Mass/Vol] 27.0 mg/dL Critically high 7.0-18.0 [facility] Comment on above: Performed By: #### C RP, CREA, BUN, CK #### [facility] [address] [place] [address] Dr. Ty Hicks Urea nitrogen/Creatinine [Mass ratio] 15.9 mg/mg Normal [facility] Comment on above: Performed By: #### C RP, CREA, BUN, CK #### [facility] [address] [place] [address] Dr. Ty Hicks BUNon 08-28-2022 Urea nitrogen [Mass/Vol] 28.0 mg/dL Critically high 7.0-18.0 [facility] Comment on above: Performed By: #### C BC #### [facility] [address] [place] [address] Dr. Ty Hicks CBC AUTO DIFFon 08-28-2022 BASO # 0.0 103/ul Normal 0.0-0.1 [facility] Comment on above: Performed By: #### C RP, CREA, BUN, CK #### [facility] [address] [place] [address] Dr. Ty Hicks Basophils/100 WBC (Bld) 0.3 % Normal 0.2-2.0 [facility] Comment on above: Performed By: #### C RP, CREA, BUN, CK #### [facility] [address] [place] [address] Dr. Ty Hicks EO # 0.3 103/ul Normal 0.0-0.7 [facility] Comment on above: Performed By: #### C RP, CREA, BUN, CK #### [facility] [address] [place] [address] Dr. Ty Hicks Eosinophils/100 WBC (Bld) 2.5 % Normal 0.9-7.0 [facility] Comment on above: Performed By: #### C RP, CREA, BUN, CK #### [facility] [address] [place] [address] Dr. Ty Hicks Erythrocyte distribution width (RBC) [Ratio] 16.4 % Critically high 11.0-15.0 [facility] Comment on above: Performed By: #### C RP, CREA, BUN, CK #### [facility] [address] [place] [address] Dr. Ty Hicks Hematocrit (Bld) [Volume fraction] 26.4 % Critically low 36.0-48.0 [facility] Comment on above: Performed By: #### C RP, CREA, BUN, CK #### [facility] [address] [place] [address] Dr. Ty Hicks Hemoglobin (Bld) [Mass/Vol] 8.1 g/dL Critically low 12.0-16.0 [facility] Comment on above: Performed By: #### C RP, CREA, BUN, CK #### [facility] [address] [place] [address] Dr. Ty Hicks IG # 0.07 10e3/ul Critically high 0.00-0.03 [facility] Comment on above: Performed By: #### C RP, CREA, BUN, CK #### [facility] [address] [place] [address] Dr. Ty Hicks IG % 0.6 % Critically high 0.0-0.5 [facility] Comment on above: Performed By: #### C RP, CREA, BUN, CK #### [facility] [address] [place] [address] Dr. Ty Hicks LYMPH # 1.8 103/ul Normal 1.2-3.8 [facility] Comment on above: Performed By: #### C RP, CREA, BUN, CK #### [facility] [address] [place] [address] Dr. Ty Hicks Lymphocytes/100 WBC (Bld) 15.8 % Critically low 20.5-60.0 [facility] Comment on above: Performed By: #### C RP, CREA, BUN, CK #### [facility] [address] [place] [address] Dr. Ty Hicks MANUAL DIFF REQ NO Normal [facility] Comment on above: Performed By: #### C RP, CREA, BUN, CK #### [facility] [address] [place] [address] Dr. Ty Hicks MCH (RBC) [Entitic mass] 28.9 pg Normal 26.7-34.0 [facility] Comment on above: Performed By: #### C RP, CREA, BUN, CK #### [facility] [address] [place] [address] Dr. Ty Hicks MCHC (RBC) [Mass/Vol] 30.7 g/dL Normal 29.9-35.2 [facility] Comment on above: Performed By: #### C RP, CREA, BUN, CK #### [facility] [address] [place] [address] Dr. Ty Hicks MCV (RBC) [Entitic vol] 94.3 fL Normal 81.0-99.0 [facility] Comment on above: Performed By: #### C RP, CREA, BUN, CK #### [facility] [address] [place] [address] Dr. Ty Hicks MONO # 1.5 103/ul Critically high 0.3-0.8 [facility] Comment on above: Performed By: #### C RP, CREA, BUN, CK #### [facility] [address] [place] [address] Dr. Ty Hicks Monocytes/100 WBC (Bld) 12.7 % Critically high 1.7-12.0 [facility] Comment on above: Performed By: #### C RP, CREA, BUN, CK #### [facility] [address] [place] [address] Dr. Ty Hicks NEUT # 7.9 103/ul Critically high 1.4-6.5 [facility] Comment on above: Performed By: #### C RP, CREA, BUN, CK #### [facility] [address] [place] [address] Dr. Ty Hicks Neutrophils/100 WBC (Bld) 68.1 % Normal 43.0-75.0 [facility] Comment on above: Performed By: #### C RP, CREA, BUN, CK #### [facility] [address] [place] [address] Dr. Ty Hicks Platelet mean volume (Bld) [Entitic vol] 9.4 fL Critically low 9.5-13.5 [facility] Comment on above: Performed By: #### C RP, CREA, BUN, CK #### [facility] [address] [place] [address] Dr. Ty Hicks PLT 457 103/ul Critically high 150-450 [facility] Comment on above: Performed By: #### C RP, CREA, BUN, CK #### [facility] [address] [place] [address] Dr. Ty Hicks RBC 2.80 106/ul Critically low 4.20-5.40 [facility] Comment on above: Performed By: #### C RP, CREA, BUN, CK #### [facility] [address] [place] [address] Dr. Ty Hicks WBC 11.5 103/ul Critically high 4.0-11.0 [facility] Comment on above: Performed By: #### C RP, CREA, BUN, CK #### [facility] [address] [place] [address] Dr. Ty Hicks CPKon 08-28-2022 CK [Catalytic activity/Vol] 43 U/L Normal 26-192 [facility] Comment on above: Performed By: #### C BC #### [facility] [address] [place] [address] Dr. Ty Hicks CREATININEon 08-28-2022 Creatinine [Mass/Vol] 1.37 mg/dL Critically high 0.55-1.02 [facility] Comment on above: Performed By: #### C BC #### [facility] [address] [place] [address] Dr. Ty Hicks EGFR-AF OMANI 45 mL/min/1.73m2 Critically low >=60 [facility] Comment on above: Performed By: #### C BC #### [facility] [address] [place] [address] Dr. Ty Hicks EGFR-NON AF OMANI 37 mL/min/1.73m2 Critically low >=60 [facility] Comment on above: Performed By: #### C BC #### [facility] [facility] [address] [place] [address] Dr. Ty Hicks CRPon 08-28-2022 CRP 3.3 mg/dL Critically high <=1.0 [facility] Comment on above: Performed By: #### C BC #### [facility] [address] [place] [address] Dr. Ty Hicks 36on 08-26-2022 36 Normal [facility] CBC AUTO DIFFon 08-26-2022 BASO # 0.1 103/ul Normal 0.0-0.1 [facility] Comment on above: Performed By: #### C BC #### [facility] [address] [place] [address] Dr. Ty Hicks Basophils/100 WBC (Bld) 0.6 % Normal 0.2-2.0 [facility] Comment on above: Performed By: #### C BC #### [facility] [address] [place] [address] Dr. Ty Hicks EO # 0.3 103/ul Normal 0.0-0.7 [facility] Comment on above: Performed By: #### C BC #### [facility] [address] [place] [address] Dr. Ty Hicks Eosinophils/100 WBC (Bld) 3.1 % Normal 0.9-7.0 [facility] Comment on above: Performed By: #### C BC #### [facility] [address] [place] [address] Dr. Ty Hicks Erythrocyte distribution width (RBC) [Ratio] 16.9 % Critically high 11.0-15.0 [facility] Comment on above: Performed By: #### C BC #### [facility] [address] [place] [address] Dr. Ty Hicks Hematocrit (Bld) [Volume fraction] 26.2 % Critically low 36.0-48.0 [facility] Comment on above: Performed By: #### C BC #### [facility] [address] [place] [address] Dr. Ty Hicks Hemoglobin (Bld) [Mass/Vol] 8.1 g/dL Critically low 12.0-16.0 [facility] Comment on above: Performed By: #### C BC #### [facility] [address] [place] [address] Dr. Ty Hicks IG # 0.09 10e3/ul Critically high 0.00-0.03 [facility] Comment on above: Performed By: #### C BC #### [facility] [address] [place] [address] Dr. Ty Hicks IG % 0.9 % Critically high 0.0-0.5 [facility] Comment on above: Performed By: #### C BC #### [facility] [address] [place] [address] Dr. Ty Hicks LYMPH # 2.2 103/ul Normal 1.2-3.8 [facility] Comment on above: Performed By: #### C BC #### [facility] [address] [place] [address] Dr. Ty Hicks Lymphocytes/100 WBC (Bld) 20.7 % Normal 20.5-60.0 [facility] Comment on above: Performed By: #### C BC #### [facility] [address] [place] [address] Dr. Ty Hicks MANUAL DIFF REQ NO Normal [facility] Comment on above: Performed By: #### C BC #### [facility] [address] [place] [address] Dr. Ty Hicks MCH (RBC) [Entitic mass] 29.1 pg Normal 26.7-34.0 [facility] Comment on above: Performed By: #### C BC #### [facility] [address] [place] [address] Dr. Ty Hicks MCHC (RBC) [Mass/Vol] 30.9 g/dL Normal 29.9-35.2 [facility] Comment on above: Performed By: #### C BC #### [facility] [address] [place] [address] Dr. Ty Hicks MCV (RBC) [Entitic vol] 94.2 fL Normal 81.0-99.0 [facility] Comment on above: Performed By: #### C BC #### [facility] [address] [place] [address] Dr. Ty Hicks MONO # 1.3 103/ul Critically high 0.3-0.8 [facility] Comment on above: Performed By: #### C BC #### [facility] [address] [place] [address] Dr. Ty Hicks Monocytes/100 WBC (Bld) 12.3 % Critically high 1.7-12.0 [facility] Comment on above: Performed By: #### C BC #### [facility] [address] [place] [address] Dr. Ty Hicks NEUT # 6.5 103/ul Normal 1.4-6.5 [facility] Comment on above: Performed By: #### C BC #### [facility] [address] [place] [address] Dr. Ty Hicks Neutrophils/100 WBC (Bld) 62.4 % Normal 43.0-75.0 [facility] Comment on above: Performed By: #### C BC #### [facility] [address] [place] [address] Dr. Ty Hicks Platelet mean volume (Bld) [Entitic vol] 9.0 fL Critically low 9.5-13.5 [facility] Comment on above: Performed By: #### C BC #### [facility] [address] [place] [address] Dr. Ty Hicks PLT 408 103/ul Normal 150-450 [facility] Comment on above: Performed By: #### C BC #### [facility] [address] [place] [address] Dr. Ty Hicks RBC 2.78 106/ul Critically low 4.20-5.40 [facility] Comment on above: Performed By: #### C BC #### [facility] [address] [place] [address] Dr. Ty Hicks WBC 10.4 103/ul Normal 4.0-11.0 [facility] Comment on above: Performed By: #### C BC #### [facility] [address] [place] [address] Dr. Ty Hicks PROF CHEM 8 (BAS METB)on Anion gap [Moles/Vol] 10.0 mmol/L Normal [facility] Comment on above: Performed By: #### C K, BUN, CRP, CREA #### [facility] [address] [place] [address] Dr. Ty Hicks Calcium [Mass/Vol] 8.7 mg/dL Normal 8.5-10.1 [facility] Comment on above: Performed By: #### C K, BUN, CRP, CREA #### [facility] [address] [place] [address] Dr. Ty Hicks Chloride [Moles/Vol] 106 mmol/L Normal 98-107 [facility] Comment on above: Performed By: #### C K, BUN, CRP, CREA #### [facility] [address] [place] [address] Dr. Ty Hicks CO2 [Moles/Vol] 27.2 mmol/L Normal 21.0-32.0 [facility] Comment on above: Performed By: #### C K, BUN, CRP, CREA #### [facility] [address] [address] [address] Ty Hicks Creatinine [Mass/Vol] 1.23 mg/dL Critically high 0.55-1.02 [facility] Comment on above: Performed By: #### C K, BUN, CRP, CREA #### [facility] [address] [address] [address] Ty Hicks EGFR-AF OMANI 51 mL/min/1.73m2 Critically low >=60 [facility] Comment on above: Performed By: #### C K, BUN, CRP, CREA #### [facility] [address] [place] [address] Dr. Ty Hicks EGFR-NON AF OMANI 42 mL/min/1.73m2 Critically low >=60 [facility] Comment on above: Performed By: #### C K, BUN, CRP, CREA #### [facility] [address] [address] [address] Ty Hicks Glucose [Mass/Vol] 100 mg/dL Normal 74-106 [facility] Comment on above: Performed By: #### C K, BUN, CRP, CREA #### [facility] [address] [place] [address] Dr. Ty Hicks Potassium [Moles/Vol] 4.2 mmol/L Normal 3.5-5.1 [facility] Comment on above: Performed By: #### C K, BUN, CRP, CREA #### [facility] [address] [address] [address] Ty Hicks Sodium [Moles/Vol] 139 mmol/L Normal 136-145 [facility] Comment on above: Performed By: #### C K, BUN, CRP, CREA #### [facility] [address] [address] [address] Ty Hicks Urea nitrogen [Mass/Vol] 26.0 mg/dL Critically high 7.0-18.0 [facility] Comment on above: Performed By: #### C K, BUN, CRP, CREA #### [facility] [address] [address] [address] Ty Hicks Urea nitrogen/Creatinine [Mass ratio] 21.1 mg/mg Normal [facility] Comment on above: Performed By: #### C K, BUN, CRP, CREA #### [facility] [address] [address] [address] Ty Hicks 30on 08-23-2022 30 Normal [facility] BASIC METABOLIC PANELon 07-26 Anion gap [Moles/Vol] 9 mmol/L Normal 7-20 [facility] Comment on above: Performed By: #### L [id number] ####[facility] ([facility])[address] [place] [address] Calcium [Mass/Vol] 8.3 mg/dL Low 8.6-10.3 [facility] Comment on above: Performed By: #### L [id number] ####[facility] ([facility])[address] [place] [address] Chloride [Moles/Vol] 110 mmol/L High 98-107 [facility] Comment on above: Performed By: #### L [id number] ####[facility] ([facility])[address] [place] [address] CO2 [Moles/Vol] 26 mmol/L Normal - [facility] Comment on above: Performed By: #### L [id number] ####[facility] ([facility])[address] [place] [address] Creatinine [Mass/Vol] 1.35 mg/dL High 0.60-1.20 [facility] Comment on above: Performed By: #### L [id number] ####[facility] ([facility])[address] [place] [address] GLOMERULAR FILTRATION RATE ML/MIN/1.73 SQ M.PREDICTED 40.2 mL/min/1.73m*2 Low >60.0 [facility] Comment on above: Result Comment: [facility]???s estimated glomerular filtration rate (eGFR) will no longer include consideration of race in its calculation. The National Kidney Foundation???s eGFR Task Force developed new recommendations for the estimation of the glomerular filtration rate in the [place] They recommend immediate implementation of the new equation refit without the race variable in all laboratories because the calculation does not include race. In addition to not including race in the calculation and reporting, it included diversity in its development, and has acceptable performance characteristics and potential consequences that do not disproportionately affect any one group of individuals. Performed By: #### L [id number] ####[facility] ([facility])[address] [place] [address] Glucose [Mass/Vol] 94 mg/dL Normal 70-100 [facility] Comment on above: Performed By: #### L [id number] ####[facility] [place] [address] Potassium [Moles/Vol] 4.3 mmol/L Normal 3.5-5.1 [facility] Comment on above: Performed By: #### L [id number] ####[facility] ([facility])[address] [place] [address] Sodium [Moles/Vol] 141 mmol/L Normal 136-145 [facility] Comment on above: Performed By: #### L [id number] ####[facility] ([facility])[address] [place] [address] Urea nitrogen [Mass/Vol] 28 mg/dL High 7-25 [facility] Comment on above: Performed By: #### L [id number] ####[facility] ([facility])[address] [place] [address] UREA NITROGEN/CREATININE (MASS RATIO) IN SER/PLAS 20.7 Normal [facility] Comment on above: Performed By: #### L [id number] ####[facility] ([facility])[address] [place] [address] CBCon 08-23-2022 Erythrocyte distribution width (RBC) [Ratio] 18.2 % High 11.5-15.0 [facility] Comment on above: Performed By: #### L [id number] ####[facility] ([facility] [place] [address] ERYTHROCYTE MEAN CORPUSCULAR HEMOGLOBIN CONCENTRATION (G/DL) BY AUTOMATED 31.3 g/dL Low 32.0-35.0 [facility] Comment on above: Performed By: #### L [id number] ####[facility] ([facility])[address] [place] [address] Hematocrit (Bld) [Volume fraction] 26.8 % Low 36.0-48.0 [facility] Comment on above: Performed By: #### L [id number] ####[facility] [place] [address] Hemoglobin (Bld) [Mass/Vol] 8.4 g/dL Low 12.0-15.0 [facility] Comment on above: Performed By: #### L [id number] ####[facility] ([facility] [place] [address] MCH (RBC) [Entitic mass] 29.4 pg Normal 27.0-33.0 [facility] Comment on above: Performed By: #### L [id number] ####[facility] [place] [address] MCV (RBC) [Entitic vol] 93.7 fL Normal 82.0-98.0 [facility] Comment on above: Performed By: #### L [id number] ####[facility] [place] [address] PLATELETS (10*3/UL) IN BLOOD AUTOMATED COUNT 404 10*3/uL High 150-400 [facility] Comment on above: Performed By: #### L [id number] ####[facility] ([facility])[address] [place] [address] RBC (Bld) [#/Vol] 2.86 10*6/uL Low 3.80-5.00 [facility] Comment on above: Performed By: #### L [id number] ####[facility] ([facility])[address] [place] [address] WBC (Bld) [#/Vol] 9.53 10*3/uL Normal 4.00-10.60 [facility] Comment on above: Performed By: #### L [id number] ####[facility] ([facility])[address] [place] [address] DSon 08-23-2022 DS Normal [facility] 30on 08-22-2022 30 Normal [facility] BASIC METABOLIC PANELon 07-26 Anion gap [Moles/Vol] 12 mmol/L Normal 7-20 [facility] Comment on above: Performed By: #### L [id number] ####[facility] ([facility])[address] [place] [address] Calcium [Mass/Vol] 8.0 mg/dL Low 8.6-10.3 [facility] Comment on above: Performed By: #### L [id number] ####[facility] ([facility])[address] [place] [address] Chloride [Moles/Vol] 107 mmol/L Normal 98-107 [facility] Comment on above: Performed By: #### L [id number] ####[facility] ([facility])[address] [place] [address] CO2 [Moles/Vol] 25 mmol/L Normal -31 [facility] Comment on above: Performed By: #### L [id number] ####[facility] ([facility])[address] [place] [address] Creatinine [Mass/Vol] 1.51 mg/dL High 0.60-1.20 [facility] Comment on above: Performed By: #### L [id number] ####[facility] ([facility]ER)[address] [place] [address] GLOMERULAR FILTRATION RATE ML/MIN/1.73 SQ M.PREDICTED 35.2 mL/min/1.73m*2 Low >60.0 [facility] Comment on above: Result Comment: The [facility]???s estimated glomerular filtration rate (eGFR) will no longer include consideration of race in its calculation. The National Kidney Foundation???s eGFR Task Force developed new recommendations for the estimation of the glomerular filtration rate in the [place] They recommend immediate implementation of the new equation refit without the race variable in all laboratories because the calculation does not include race. In addition to not including race in the calculation and reporting, it included diversity in its development, and has acceptable performance characteristics and potential consequences that do not disproportionately affect any one group of individuals. Performed By: #### L [id number] ####[facility] ([facility])[address] [place] [address] Glucose [Mass/Vol] 88 mg/dL Normal 70-100 [facility] Comment on above: Performed By: #### L [id number] ####[facility] ([facility])[address] [place] [address] Potassium [Moles/Vol] 4.2 mmol/L Normal 3.5-5.1 [facility] Comment on above: Performed By: #### L [id number] ####[facility] ([facility])[address] [place] [address] Sodium [Moles/Vol] 140 mmol/L Normal 136-145 [facility] Comment on above: Performed By: #### L [id number] ####[facility] ([facility])[address] [place] [address] Urea nitrogen [Mass/Vol] 33 mg/dL High 7-25 [facility] Comment on above: Performed By: #### L [id number] ####[facility] ([facility])[address] [place] [address] UREA NITROGEN/CREATININE (MASS RATIO) IN SER/PLAS 21.9 Normal [facility] Comment on above: Performed By: #### L [id number] ####[facility] ([facility])[address] [place] [address] CBCon 08-22-2022 Erythrocyte distribution width (RBC) [Ratio] 18.2 % High 11.5-15.0 [facility] Comment on above: Performed By: #### L [id number] ####[facility] ([facility] [place] [address] ERYTHROCYTE MEAN CORPUSCULAR HEMOGLOBIN CONCENTRATION (G/DL) BY AUTOMATED 31.2 g/dL Low 32.0-35.0 [facility] Comment on above: Performed By: #### L [id number] ####[facility] ([facility])[address] [place] [address] Hematocrit (Bld) [Volume fraction] 26.3 % Low 36.0-48.0 [facility] Comment on above: Performed By: #### L [id number] ####[facility] ([facility])[address] [place] [address] Hemoglobin (Bld) [Mass/Vol] 8.2 g/dL Low 12.0-15.0 [facility] Comment on above: Performed By: #### L [id number] ####[facility] ([facility] [place] [address] MCH (RBC) [Entitic mass] 29.0 pg Normal 27.0-33.0 [facility] Comment on above: Performed By: #### L [id number] ####[facility])[address] [place] [address] MCV (RBC) [Entitic vol] 92.9 fL Normal 82.0-98.0 [facility] Comment on above: Performed By: #### L [id number] ####[facility] ([facility])[address] [place] [address] PLATELETS (10*3/UL) IN BLOOD AUTOMATED COUNT 391 10*3/uL Normal 150-400 [facility] Comment on above: Performed By: #### L [id number] ####[facility] ([facility]ER)[address] [place] [address] RBC (Bld) [#/Vol] 2.83 10*6/uL Low 3.80-5.00 [facility] Comment on above: Performed By: #### L [id number] ####[facility] ([facility] [place] [address] WBC (Bld) [#/Vol] 8.96 10*3/uL Normal 4.00-10.60 [facility] Comment on above: Performed By: #### L [id number] ####[facility] ([facility] [place] [address] NURSNOTEon 08-22-2022 NURSNOTE Normal [facility] NURSNOTE RN states as of now she is not aware of pt discharge today, still waiting for final recommendation from ID for what antibiotic and duration. ID still waiting for culture finial results, prior to place PICC line [facility] BASIC METABOLIC PANELon 07-25 Anion gap [Moles/Vol] 14 mmol/L Normal 7-20 [facility] Comment on above: Performed By: #### L [id number] ####[facility] ([facility]ER)[address] [place] [address] Calcium [Mass/Vol] 8.1 mg/dL Low 8.6-10.3 [facility] Comment on above: Performed By: #### L [id number] ####[facility] ([facility])[address] [place] [address] Chloride [Moles/Vol] 104 mmol/L Normal 98-107 [facility] Comment on above: Performed By: #### L [id number] ####[facility] ([facility]ER)[address] [place] [address] CO2 [Moles/Vol] 25 mmol/L Normal 21-31 [facility] Comment on above: Performed By: #### L [id number] ####[facility] ([facility]ER)[address] [place] [address] Creatinine [Mass/Vol] 1.59 mg/dL High 0.60-1.20 [facility] Comment on above: Performed By: #### L [id number] ####[facility] ([facility])[address] [place] [address] GLOMERULAR FILTRATION RATE ML/MIN/1.73 SQ M.PREDICTED 33.1 mL/min/1.73m*2 Low >60.0 [facility] Comment on above: Result Comment: [facility]???s estimated glomerular filtration rate (eGFR) will no longer include consideration of race in its calculation. The National Kidney Foundation???s eGFR Task Force developed new recommendations for the estimation of the glomerular filtration rate in the [place] They recommend immediate implementation of the new equation refit without the race variable in all laboratories because the calculation does not include race. In addition to not including race in the calculation and reporting, it included diversity in its development, and has acceptable performance characteristics and potential consequences that do not disproportionately affect any one group of individuals. Performed By: #### L [id number] ####[facility] ([facility])[address] [place] [address] Glucose [Mass/Vol] 102 mg/dL High 70-100 [facility] Comment on above: Performed By: #### L [id number] ####[facility] ([facility])[address] [place] [address] Potassium [Moles/Vol] 4.9 mmol/L Normal 3.5-5.1 [facility] Comment on above: Performed By: #### L [id number] ####[facility] ([facility])[address] [place] [address] Sodium [Moles/Vol] 138 mmol/L Normal 136-145 [facility] Comment on above: Performed By: #### L [id number] ####[facility] ([facility])[address] [place] [address] Urea nitrogen [Mass/Vol] 31 mg/dL High 7-25 [facility] Comment on above: Performed By: #### L [id number] ####[facility] ([facility])[address] [place] [address] UREA NITROGEN/CREATININE (MASS RATIO) IN SER/PLAS 19.5 Normal [facility] Comment on above: Performed By: #### L [id number] ####[facility] [place] [address] CBCon 08-21-2022 Erythrocyte distribution width (RBC) [Ratio] 16.9 % High 11.5-15.0 [facility] Comment on above: Performed By: #### L [id number] ####[facility] ([facility])[address] [place] [address] ERYTHROCYTE MEAN CORPUSCULAR HEMOGLOBIN CONCENTRATION (G/DL) BY AUTOMATED 31.8 g/dL Low 32.0-35.0 [facility] Comment on above: Performed By: #### L [id number] ####[facility] ([facility])[address] [place] [address] Hematocrit (Bld) [Volume fraction] 22.0 % Low 36.0-48.0 [facility] Comment on above: Performed By: #### L [id number] ####[facility] [place] [address] Hemoglobin (Bld) [Mass/Vol] 7.0 g/dL Low 12.0-15.0 [facility] Comment on above: Performed By: #### L [id number] ####[facility] [place] [address] MCH (RBC) [Entitic mass] 30.0 pg Normal 27.0-33.0 [facility] Comment on above: Performed By: #### L [id number] ####[facility] [place] [address] MCV (RBC) [Entitic vol] 94.4 fL Normal 82.0-98.0 [facility] Comment on above: Performed By: #### L [id number] ####[facility] [place] [address] PLATELETS (10*3/UL) IN BLOOD AUTOMATED COUNT 401 10*3/uL High 150-400 [facility] Comment on above: Performed By: #### L [id number] ####[facility] ([facility])[address] [place] [address] RBC (Bld) [#/Vol] 2.33 10*6/uL Low 3.80-5.00 [facility] Comment on above: Performed By: #### L [id number] ####[facility] ([facility])[address] [place], [place] [address] WBC (Bld) [#/Vol] 9.56 10*3/uL Normal 4.00-10.60 [facility] Comment on above: Performed By: #### L [id number] ####[facility] ([facility])[address] [place] [address] Erythrocyte distribution width (RBC) [Ratio] 17.1 % High 11.5-15.0 [facility] Comment on above: Order Comment: This was ordered earlier post op and never completed. Please complete Performed By: #### L [id number] ####[facility] ([facility])[address] [place], [place] [address] ERYTHROCYTE MEAN CORPUSCULAR HEMOGLOBIN CONCENTRATION (G/DL) BY AUTOMATED 31.0 g/dL Low 32.0-35.0 [facility] Comment on above: Order Comment: This was ordered earlier post op and never completed. Please complete Performed By: #### L [id number] ####[facility] ([facility])[address] [place] [address] Hematocrit (Bld) [Volume fraction] 24.5 % Low 36.0-48.0 [facility] Comment on above: Order Comment: This was ordered earlier post op and never completed. Please complete Performed By: #### L [id number] ####[facility] ([facility])[address] [place], [place] [address] Hemoglobin (Bld) [Mass/Vol] 7.6 g/dL Low 12.0-15.0 [facility] Comment on above: Order Comment: This was ordered earlier post op and never completed. Please complete Performed By: #### L [id number] ####[facility] [place] [address] MCH (RBC) [Entitic mass] 29.5 pg Normal 27.0-33.0 [facility] Comment on above: Order Comment: This was ordered earlier post op and never completed. Please complete Performed By: #### L [id number] ####[facility] ([facility])[address] [place] [address] MCV (RBC) [Entitic vol] 95.0 fL Normal 82.0-98.0 [facility] Comment on above: Order Comment: This was ordered earlier post op and never completed. Please complete Performed By: #### L [id number] ####[facility] ([facility])[address] [place] [address] PLATELETS (10*3/UL) IN BLOOD AUTOMATED COUNT 397 10*3/uL Normal 150-400 [facility] Comment on above: Order Comment: This was ordered earlier post op and never completed. Please complete Performed By: #### L [id number] ####[facility] ([facility])[address] [place] [address] RBC (Bld) [#/Vol] 2.58 10*6/uL Low 3.80-5.00 [facility] Comment on above: Order Comment: This was ordered earlier post op and never completed. Please complete Performed By: #### L [id number] ####[facility] ([facility])[address] [place] [address] WBC (Bld) [#/Vol] 11.37 10*3/uL High 4.00-10.60 [facility] Comment on above: Order Comment: This was ordered earlier post op and never completed. Please complete Performed By: #### L [id number] ####[facility] ([facility] [place] [address] H[place] 08-21-2022 LARRY VALENCIA aware will not be placing PICC line today, will follow up tomorrow about possibly placing PICC line, waiting for culture results Normal [facility] POCT GLUCOSE METER UNSOLICIT ED RESULTSon 08-21-2022 Glucose [Mass/Vol] 127 mg/dL High 70-105 [facility] Comment on above: Result Comment: [email or web address] Performed By: #### L [id number] ####[facility] (BEAKER)[address] [place] [address] [id number] 08-20-2022 [id number] Normal [facility] ANESon 08-20-2022 ANES Normal [facility] ANES Normal [facility] BASIC METABOLIC PANELon 07-25 Anion gap [Moles/Vol] 16 mmol/L Normal 7-20 [facility] Comment on above: Performed By: #### L [id number] ####[facility] ([facility])[address] [place] [address] Calcium [Mass/Vol] 9.3 mg/dL Normal 8.6-10.3 [facility] Comment on above: Performed By: #### L [id number] ####[facility] ([facility])[address] [place] [address] Chloride [Moles/Vol] 103 mmol/L Normal 98-107 [facility] Comment on above: Performed By: #### L [id number] ####[facility] ([facility])[address] [place] [address] CO2 [Moles/Vol] 24 mmol/L Normal 21-31 [facility] Comment on above: Performed By: #### L [id number] ####[facility] ([facility])[address] [place] [address] Creatinine [Mass/Vol] 1.71 mg/dL High 0.60-1.20 [facility] Comment on above: Performed By: #### L [id number] ####[facility] ([facility]ER)[address] [place] [address] GLOMERULAR FILTRATION RATE ML/MIN/1.73 SQ M.PREDICTED 30.3 mL/min/1.73m*2 Low >60.0 [facility] Comment on above: Result Comment: The [facility]???s estimated glomerular filtration rate (eGFR) will no longer include consideration of race in its calculation. The National Kidney Foundation???s eGFR Task Force developed new recommendations for the estimation of the glomerular filtration rate in the [place] They recommend immediate implementation of the new equation refit without the race variable in all laboratories because the calculation does not include race. In addition to not including race in the calculation and reporting, it included diversity in its development, and has acceptable performance characteristics and potential consequences that do not disproportionately affect any one group of individuals. Performed By: #### L [id number] ####[facility] ([facility])[address] [facility] [place] [address] Glucose [Mass/Vol] 136 mg/dL High 70-100 [facility] Comment on above: Performed By: #### L [id number] ####[facility] ([facility])[address] [facility] [place] [address] Potassium [Moles/Vol] 5.3 mmol/L High 3.5-5.1 [facility] Comment on above: Performed By: #### L [id number] ####[facility] ([facility])[address] [facility] [place] [address] Sodium [Moles/Vol] 138 mmol/L Normal 136-145 [facility] Comment on above: Performed By: #### L [id number] ####[facility] ([facility])[address] [facility] [place] [address] Urea nitrogen [Mass/Vol] 27 mg/dL High 7-25 [facility] Comment on above: Performed By: #### L [id number] ####[facility] ([facility]ER)[address] [facility] [place] [address] UREA NITROGEN/CREATININE (MASS RATIO) IN SER/PLAS 15.8 Normal [facility] Comment on above: Performed By: #### L [id number] ####[facility] ([facility])[address] [place] [address] BODY FLUID CULTUREon 023 Bacteria identified Cx Nom (Unsp spec) No growth at 5 days Normal [facility] Comment on above: Order Comment: Pre-o p diagnosis:Personal history of other infectious and parasitic diseases [Z86.19]Other specified postprocedural states [Z98.890] Performed By: #### L [id number] ####[facility] ([facility]ER)[address] [place] [address] GRAM STAIN RESULT Abnormal [facility] Comment on above: Order Comment: Pre-o p diagnosis:Personal history of other infectious and parasitic diseases [Z86.19]Other specified postprocedural states [Z98.890] Result Comment: Poly morphonuclear leukocytesNo organisms seenCytocentrifuge sample Performed By: #### L [id number] ####[facility] ([facility])[address] [place] [address] CBCon 08-20-2022 Erythrocyte distribution width (RBC) [Ratio] 17.1 % High 11.5-15.0 [facility] Comment on above: Performed By: #### L [id number] ####[facility] ([facility] [place] [address] ERYTHROCYTE MEAN CORPUSCULAR HEMOGLOBIN CONCENTRATION (G/DL) BY AUTOMATED 30.2 g/dL Low 32.0-35.0 [facility] Comment on above: Performed By: #### L [id number] ####[facility] ([facility])[address] [place] [address] Hematocrit (Bld) [Volume fraction] 32.8 % Low 36.0-48.0 [facility] Comment on above: Performed By: #### L [id number] ####[facility] ([facility]ER)[address] [place] [address] Hemoglobin (Bld) [Mass/Vol] 9.9 g/dL Low 12.0-15.0 [facility] Comment on above: Performed By: #### L [id number] ####[facility] ([facility]ER)[address] [place] [address] MCH (RBC) [Entitic mass] 29.1 pg Normal 27.0-33.0 [facility] Comment on above: Performed By: #### L [id number] ####[facility] ([facility])[address] [place] [address] MCV (RBC) [Entitic vol] 96.5 fL Normal 82.0-98.0 [facility] Comment on above: Performed By: #### L [id number] ####[facility] ([facility])[address] [place] [address] PLATELETS (10*3/UL) IN BLOOD AUTOMATED COUNT 539 10*3/uL High 150-400 [facility] Comment on above: Performed By: #### L [id number] ####[facility] ([facility])[address] [place] [address] RBC (Bld) [#/Vol] 3.40 10*6/uL Low 3.80-5.00 [facility] Comment on above: Performed By: #### L [id number] ####[facility] ([facility])[address] [place] [address] WBC (Bld) [#/Vol] 13.32 10*3/uL High 4.00-10.60 [facility] Comment on above: Performed By: #### L [id number] ####[facility] ([facility])[address] [place] [address] CKon 08-20-2022 CREATINE KINASE (U/L) IN SER/PLAS 55.0 U/L Normal 30.0-223.0 [facility] Comment on above: Performed By: #### L [id number] ####[facility] ([facility])[address] [place] [address] CONSULTon 08-20-2022 CONSULT Normal [facility] HPon 08-20-2022 HP Normal [facility] HP Normal [facility] MRSA/MSSA DNA NASALon 2022 MRSA DNA Negative Normal Negative [facility] Comment on above: Performed By: #### L [id number] ####[facility] ([facility])[address] [place] [address] MSSA DNA Negative Normal Negative [facility] Comment on above: Performed By: #### L [id number] ####[facility] ([facility])[address] [place] [address] OPNOTEon 08-20-2022 OPNOTE Normal [facility] POCT GLUCOSE METER UNSOLICIT ED RESULTSon 08-20-2022 Glucose [Mass/Vol] 184 mg/dL High 70-105 [facility] Comment on above: Result Comment: [email or web address] Performed By: #### L [id number] ####[facility] ([facility])[address] [place] [address] Glucose [Mass/Vol] 87 mg/dL Normal 70-105 [facility] Comment on above: Result Comment: dhol as Performed By: #### L [id number] ####[facility] ([facility])[address] [place] [address] POCT SARS-COV-2 PCRon 2022 POC SARS-COV-2 ANTIGEN Negative Normal Negative [facility] Comment on above: Result Comment: ID N OW COVID-19 assay performed on the [employer] Instrument is a rapid molecular in vitro diagnostic test utilizing an isothermal nucleic acid amplification technology intended for the qualitative detection of nucleic acid from the SARS-CoV-2 virus indirect anterior nasal(nasal), nasopharyngeal or throat swabs from individuals who are suspected of COVID-19 by their healthcare provider within the first seven days of the onset of symptoms.Testing is limited to laboratories certified under the ClinicalLaboratory Improvement Amendments of 1988 (CLIA), 42 U.S.C. ???263a,that meet the requirements to perform high, moderate, or waived complexity tests. The ID NOW COVID-19 assay is also authorized for use at the Point of Care (POC), i.e., in patient caresettings operating under a CLIA Certificate of Waiver, Certificate of Compliance, or Certificate of Accreditation. Performed By: #### L [id number] ####[facility] ([facility])[address] [place] [address] TISSUE CULTUREon 08-20-2022 Bacteria identified Cx Nom (Unsp spec) No growth at 5 days Normal [facility] Comment on above: Order Comment: Pre-o p diagnosis:Personal history of other infectious and parasitic diseases [Z86.19]Other specified postprocedural states [Z98.890] Performed By: #### L [id number] ####[facility] ([facility])[address] [place] [address] GRAM STAIN RESULT Normal [facility] Comment on above: Order Comment: Pre-o p diagnosis:Personal history of other infectious and parasitic diseases [Z86.19]Other specified postprocedural states [Z98.890] Result Comment: Many Polymorphonuclear leukocytesNo organisms seen Performed By: #### L [id number] ####[facility] ([facility])[address] [facility] [place] [address] Bacteria identified Cx Nom (Unsp spec) No growth at 5 days Normal [facility] Comment on above: Order Comment: Pre-o p diagnosis:Personal history of other infectious and parasitic diseases [Z86.19]Other specified postprocedural states [Z98.890] Performed By: #### L [id number] ####[facility] ([facility])[address] [place] [address] GRAM STAIN RESULT Normal [facility] Comment on above: Order Comment: Pre-o p diagnosis:Personal history of other infectious and parasitic diseases [Z86.19]Other specified postprocedural states [Z98.890] Result Comment: Many Polymorphonuclear leukocytesNo organisms seen Performed By: #### L [id number] ####[facility] ([facility])[address] [address] TYPE AND SCREENon 08-20-2022 AB SCREEN Negative Normal [facility] Comment on above: Performed By: #### L [id number] ####[facility], ABO group Nom (Bld) AB Normal [facility] Comment on above: Performed By: #### L [id number] ####[facility], RH TYPE IN BLOOD Positive Normal [facility] Comment on above: Performed By: #### L [id number] ####[facility], CRPon 08-19-2022 CRP 1.6 mg/dL Critically high <=1.0 [facility] Comment on above: Performed By: #### C K, BUN, CRP, CREA #### [facility] [address] [place] [address] [address] Ty Hicks GLYCOHEMOGLOBIN A1Con 2022 ADA RECOMMENDATION SEE BELOW Normal [facility] Comment on above: Result Comment: ADA RECOMMENDED LIMIT 4.0 - 6.0 ADA THERAPEUTIC TARGET < 7.0 ACTION SUGGESTED > 7.0 Performed By: #### C K, BUN, CRP, CREA #### [facility] [address] [place] [address] Dr. Ty Hicks Glucose [Mass/Vol] 111 mg/dL Normal [facility] Comment on above: Performed By: #### C K, BUN, CRP, CREA #### [facility] [address] [place] [address] Dr. Ty Hicks HbA1c (Bld) [Mass fraction] 5.5 % Normal 4.5-6.2 [facility] Comment on above: Performed By: #### C K, BUN, CRP, CREA #### [facility] [address] [place] [address] Dr. Ty Hicks PROF CHEM 8 (BAS METB)on Anion gap [Moles/Vol] 12.8 mmol/L Normal [facility] Comment on above: Performed By: #### C K, BUN, CRP, CREA #### [facility] [address] [place] [address] Dr. Ty Hicks Calcium [Mass/Vol] 9.0 mg/dL Normal 8.5-10.1 [facility] Comment on above: Performed By: #### C K, BUN, CRP, CREA #### [facility] [address] [place] [address] Dr. Ty Hicks Chloride [Moles/Vol] 107 mmol/L Normal 98-107 [facility] Comment on above: Performed By: #### C K, BUN, CRP, CREA #### [facility] [address] [address] [address] Ty Hicks CO2 [Moles/Vol] 26.7 mmol/L Normal 21.0-32.0 [facility] Comment on above: Performed By: #### C K, BUN, CRP, CREA #### [facility] [address] [place] [address] Dr. Ty Hicks Creatinine [Mass/Vol] 1.49 mg/dL Critically high 0.55-1.02 [facility] Comment on above: Performed By: #### C K, BUN, CRP, CREA #### [facility] [address] [place] [address] Dr. Ty Hicks EGFR-AF OMANI 41 mL/min/1.73m2 Critically low >=60 [facility] Comment on above: Performed By: #### C K, BUN, CRP, CREA #### [facility] [address] [place] [address] Dr. Ty Hicks EGFR-NON AF OMANI 34 mL/min/1.73m2 Critically low >=60 [facility] Comment on above: Performed By: #### C K, BUN, CRP, CREA #### [facility] [address] [place] [address] Dr. Ty Hicks Glucose [Mass/Vol] 88 mg/dL Normal 74-106 [facility] Comment on above: Performed By: #### C K, BUN, CRP, CREA #### [facility] [address] [place] [address] Dr. Ty Hicks Potassium [Moles/Vol] 4.5 mmol/L Normal 3.5-5.1 [facility] Comment on above: Performed By: #### C K, BUN, CRP, CREA #### [facility] [address] [place] [address] Dr. Ty Hicks Sodium [Moles/Vol] 142 mmol/L Normal 136-145 [facility] Comment on above: Performed By: #### C K, BUN, CRP, CREA #### [facility] [address] [address] [address] Ty Hicks Urea nitrogen [Mass/Vol] 28.0 mg/dL Critically high 7.0-18.0 [facility] Comment on above: Performed By: #### C K, BUN, CRP, CREA #### [facility] [address] [place] [address] Dr. Ty Hicks Urea nitrogen/Creatinine [Mass ratio] 18.8 mg/mg Normal [facility] Comment on above: Performed By: #### C K, BUN, CRP, CREA #### [facility] [address] [place] [address] Dr. Ty Hicks [facility] SED RATE 76 mm/hr Critically high <=30 [facility] Comment on above: Performed By: #### C K, BUN, CRP, CREA #### [facility] [address] [place] [address] Dr. Ty Hicks CULTURE WOUNDon 08-17-2022 CULTURE WOUND Culture Observations : HEAVY GROWTH OF MIXED SKIN DARIAN. Culture Observations: NO GROWTH OF ANAEROBES AT 72 HOURS. Normal [facility] Comment on above: Performed By: #### C RP, CREA, BUN, CK #### [facility] [address] [place] [address] Dr. Ty Hicks BUNon 08-13-2022 Urea nitrogen [Mass/Vol] 27 mg/dL High 7-25 [facility] Comment on above: Performed By: #### L [id number] ####[facility] (BEAKER)[address] [place] [address] C-REACTIVE PROTEINon 023 C REACTIVE PROTEIN (MG/L) IN SER/PLAS 18.9 mg/L High 0.0-7.0 [facility] Comment on above: Performed By: #### L [id number] ####[facility] [place] [address] CBC WITH AUTO DIFFERENTIALon 08-13-2022 Basophils (Bld) [#/Vol] 0.06 10*3/uL Normal 0.00-0.20 [facility] Comment on above: Performed By: #### L [id number] ####[facility] ([facility]ER)[address] [place] [address] Basophils/100 WBC (Bld) 0.7 % Normal 0.0-1.0 [facility] Comment on above: Performed By: #### L [id number] ####[facility] ([facility]ER)[address] [place] [address] Eosinophils (Bld) [#/Vol] 0.30 10*3/uL Normal 0.00-0.50 [facility] Comment on above: Performed By: #### L [id number] ####[facility] ([facility])[address] [place] [address] Eosinophils/100 WBC (Bld) 3.3 % Normal 0.0-6.0 [facility] Comment on above: Performed By: #### L [id number] ####[facility] [place] [address] Erythrocyte distribution width (RBC) [Ratio] 17.1 % High 11.5-15.0 [facility] Comment on above: Performed By: #### L [id number] ####[facility] ([facility])[address] [place] [address] ERYTHROCYTE MEAN CORPUSCULAR HEMOGLOBIN CONCENTRATION (G/DL) BY AUTOMATED 30.4 g/dL Low 32.0-35.0 [facility] Comment on above: Performed By: #### L [id number] ####[facility] ([facility])[address] [place] [address] Hematocrit (Bld) [Volume fraction] 33.6 % Low 36.0-48.0 [facility] Comment on above: Performed By: #### L [id number] ####[facility] ([facility]ER)[address] [place] [address] Hemoglobin (Bld) [Mass/Vol] 10.2 g/dL Low 12.0-15.0 [facility] Comment on above: Performed By: #### L [id number] ####[facility] ([facility]ER)[address] [place] [address] Immature granulocytes (Bld) [#/Vol] 0.03 10*3/uL Normal 0.00-0.20 [facility] Comment on above: Performed By: #### L [id number] ####[facility] ([facility]ER)[address] [place] [address] Immature granulocytes/100 WBC (Bld) 0.3 % Normal 0.0-1.0 [facility] Comment on above: Performed By: #### L [id number] ####[facility] ([facility]ER)[address] [place] [address] Lymphocytes (Bld) [#/Vol] 1.83 10*3/uL Normal 1.20-4.00 [facility] Comment on above: Performed By: #### L [id number] ####[facility] ([facility]ER)[address] [place] [address] Lymphocytes/100 WBC (Bld) 20.3 % Normal 20.0-45.0 [facility] Comment on above: Performed By: #### L [id number] ####[facility] [place] [address] MCH (RBC) [Entitic mass] 28.7 pg Normal 27.0-33.0 [facility] Comment on above: Performed By: #### L [id number] ####[facility] ([facility]ER)[address] [place] [address] MCV (RBC) [Entitic vol] 94.6 fL Normal 82.0-98.0 [facility] Comment on above: Performed By: #### L [id number] ####[facility] (BE[facility]ER)[address] [place] [address] Monocytes (Bld) [#/Vol] 0.79 10*3/uL Normal 0.10-1.00 [facility] Comment on above: Performed By: #### L [id number] ####[facility] (BEAKER)[address] [place] [address] Monocytes/100 WBC (Bld) 8.8 % Normal 5.0-12.0 [facility] Comment on above: Performed By: #### L [id number] ####[facility] ([facility]ER)[address] [place] [address] Neutrophils (Bld) [#/Vol] 5.99 10*3/uL Normal 1.60-7.60 [facility] Comment on above: Performed By: #### L [id number] ####[facility] ([facility])[address] [place] [address] Neutrophils/100 WBC (Bld) 66.6 % Normal 40.0-72.0 [facility] Comment on above: Performed By: #### L [id number] ####[facility] ([facility])[address] [place] [address] NRBC (PER 100 WBCS) BY AUTOMATED COUNT 0.0 % Normal 0.0-0.0 [facility] Comment on above: Performed By: #### L [id number] ####[facility] ([facility])[address] [place] [address] PLATELETS (10*3/UL) IN BLOOD AUTOMATED COUNT 527 10*3/uL High 150-400 [facility] Comment on above: Performed By: #### L [id number] ####[facility] [place] [address] RBC (Bld) [#/Vol] 3.55 10*6/uL Low 3.80-5.00 [facility] Comment on above: Performed By: #### L [id number] ####[facility] (BEAKER)[address] [place] [address] WBC (Bld) [#/Vol] 9.00 10*3/uL Normal 4.00-10.60 [facility] Comment on above: Performed By: #### L [id number] ####[facility] (BE[facility]ER)[address] [place] [address] CREATININE, SERUMon 08-14-19 23 Creatinine [Mass/Vol] 1.49 mg/dL High 0.60-1.20 [facility] Comment on above: Performed By: #### L [id number] ####[facility] ([facility])[address] [place] [address] GLOMERULAR FILTRATION RATE ML/MIN/1.73 SQ M.PREDICTED 35.7 mL/min/1.73m*2 Low >60.0 [facility] Comment on above: Result Comment: [facility]???s estimated glomerular filtration rate (eGFR) will no longer include consideration of race in its calculation. The National Kidney Foundation???s eGFR Task Force developed new recommendations for the estimation of the glomerular filtration rate in the [place] They recommend immediate implementation of the new equation refit without the race variable in all laboratories because the calculation does not include race. In addition to not including race in the calculation and reporting, it included diversity in its development, and has acceptable performance characteristics and potential consequences that do not disproportionately affect any one group of individuals. Performed By: #### L [id number] ####[facility] ([facility])[address] [place] [address] Follow-Upon 08-13-2022 Follow-Up Normal [facility] SEDIMENTATION RATEon 023 SEDIMENTATION RATE, ERYTHROCYTE 93 mm/hr High <=20 [facility] Comment on above: Performed By: #### L [id number] ####[facility] ([facility])[address] [place] [address] CRPon 08-12-2022 CRP 1.1 mg/dL Critically high <=1.0 [facility] Comment on above: Performed By: #### C K, BUN, CRP, CREA #### [facility] [address] [place] [address] Dr. Ty Hicks SED RATE WESTERGRENon 2022 SED RATE 104 mm/hr Critically high <=30 [facility] Comment on above: Performed By: #### C K, BUN, CRP, CREA #### [facility] [address] [address] [address] Ty Hicks CRPon 07-24-2022 CRP 3.8 mg/dL Critically high <=1.0 [facility] Comment on above: Performed By: #### C RP #### [facility] [address] [address] [address] Ty Hicks SED RATE WESTERGRENon 2022 SED RATE 97 mm/hr Critically high <=30 [facility] Comment on above: Performed By: #### C RP, CREA, BUN, CK #### [facility] [address] [address] [address] Ty Hicks 36on 07-17-2022 36 [facility] 36on 07-16-2022 36 Deborah from [facility] called to inform ID they they will NOT be sending wound pictures in any delivery method because this is a HIPPA violation. Pt is scheduled for 4 week f/up. Normal [facility] Follow-Upon 07-16-2022 Follow-Up [facility] CBC WITH AUTO DIFFERENTIALon 06-25-2022 Basophils (Bld) [#/Vol] 0.07 10*3/uL Normal 0.00-0.20 [facility] Comment on above: Performed By: #### L [id number] ####[facility] ([facility])[address] [place] [address] Basophils/100 WBC (Bld) 0.5 % Normal 0.0-1.0 [facility] Comment on above: Performed By: #### L [id number] ####[facility] ([facility])[address] [place] [address] Eosinophils (Bld) [#/Vol] 0.25 10*3/uL Normal 0.00-0.50 [facility] Comment on above: Performed By: #### L [id number] ####[facility] ([facility])[address] [place] [address] Eosinophils/100 WBC (Bld) 1.7 % Normal 0.0-6.0 [facility] Comment on above: Performed By: #### L [id number] ####[facility] ([facility])[address] [place] [address] Erythrocyte distribution width (RBC) [Ratio] 15.9 % High 11.5-15.0 [facility] Comment on above: Performed By: #### L [id number] ####[facility] ([facility])[address] [place] [address] ERYTHROCYTE MEAN CORPUSCULAR HEMOGLOBIN CONCENTRATION (G/DL) BY AUTOMATED 30.4 g/dL Low 32.0-35.0 [facility] Comment on above: Performed By: #### L [id number] ####[facility] ([facility])[address] [place] [address] Hematocrit (Bld) [Volume fraction] 36.9 % Normal 36.0-48.0 [facility] Comment on above: Performed By: #### L [id number] ####[facility] ([facility])[address] [place] [address] Hemoglobin (Bld) [Mass/Vol] 11.2 g/dL Low 12.0-15.0 [facility] Comment on above: Performed By: #### L [id number] ####[facility] ([facility])[address] [place] [address] Immature granulocytes (Bld) [#/Vol] 0.13 10*3/uL Normal 0.00-0.20 [facility] Comment on above: Performed By: #### L [id number] ####[facility] ([facility])[address] [place] [address] Immature granulocytes/100 WBC (Bld) 0.9 % Normal 0.0-1.0 [facility] Comment on above: Performed By: #### L [id number] ####[facility] ([facility])[address] [place] [address] Lymphocytes (Bld) [#/Vol] 1.94 10*3/uL Normal 1.20-4.00 [facility] Comment on above: Performed By: #### L [id number] ####[facility] ([facility])[address] [place] [address] Lymphocytes/100 WBC (Bld) 13.1 % Low 20.0-45.0 [facility] Comment on above: Performed By: #### L [id number] ####[facility] ([facility])[address] [place] [address] MCH (RBC) [Entitic mass] 28.6 pg Normal 27.0-33.0 [facility] Comment on above: Performed By: #### L [id number] ####[facility] ([facility])[address] [place] [address] MCV (RBC) [Entitic vol] 94.4 fL Normal 82.0-98.0 [facility] Comment on above: Performed By: #### L [id number] ####[facility] ([facility])[address] [place] [address] Monocytes (Bld) [#/Vol] 1.14 10*3/uL High 0.10-1.00 [facility] Comment on above: Performed By: #### L [id number] ####[facility] ([facility])[address] [place] [address] Monocytes/100 WBC (Bld) 7.7 % Normal 5.0-12.0 [facility] Comment on above: Performed By: #### L [id number] ####[facility] ([facility])[address] [place] [address] Neutrophils (Bld) [#/Vol] 11.27 10*3/uL High 1.60-7.60 [facility] Comment on above: Performed By: #### L [id number] ####[facility] ([facility])[address] [place] [address] Neutrophils/100 WBC (Bld) 76.1 % High 40.0-72.0 [facility] Comment on above: Performed By: #### L [id number] ####[facility] ([facility])[address] [place] [address] NRBC (PER 100 WBCS) BY AUTOMATED COUNT 0.0 % Normal 0.0-0.0 [facility] Comment on above: Performed By: #### L [id number] ####[facility] ([facility])[address] [place] [address] PLATELETS (10*3/UL) IN BLOOD AUTOMATED COUNT 846 10*3/uL High 150-400 [facility] Comment on above: Performed By: #### L [id number] ####[facility] [place] [address] RBC (Bld) [#/Vol] 3.91 10*6/uL Normal 3.80-5.00 [facility] Comment on above: Performed By: #### L [id number] ####[facility] ([facility])[address] [place] [address] WBC (Bld) [#/Vol] 14.80 10*3/uL High 4.00-10.60 [facility] Comment on above: Performed By: #### L [id number] ####[facility] [place] [address] Follow-Upon 06-25-2022 Follow-Up Normal [facility] 36on 06-13-2022 36 Confirmed orders wit nate Deborah at [facility] to be done tomorrow 06/14 Normal [facility] 36 Normal [facility] Orders Onlyon 06-12-2022 Orders Only [id number] Neda Gonzalez 1945 F Date Provider Department Center 06/12/2022 1413-ANGEL M[facility]AL[facility] MP ORTHO MPORTHO Family History Family history unknown: Yes Normal [facility] BASIC METABOLIC PANELon 05-26 Anion gap [Moles/Vol] 6 mmol/L Low 12-12 [facility] Comment on above: Performed By: #### L [id number] ####[facility] ([facility])[address] [place] [address] Calcium [Mass/Vol] 7.5 mg/dL Low 8.6-10.3 [facility] Comment on above: Performed By: #### L [id number] ####[facility] ([facility])[address] [place] [address] Chloride [Moles/Vol] 106 mmol/L Normal 98-107 [facility] Comment on above: Performed By: #### L [id number] ####[facility] ([facility])[address] [place] [address] CO2 [Moles/Vol] 25 mmol/L Normal 21-31 [facility] Comment on above: Performed By: #### L [id number] ####[facility] ([facility])[address] [place] [address] Creatinine [Mass/Vol] 1.30 mg/dL High 0.60-1.20 [facility] Comment on above: Performed By: #### L [id number] ####[facility] ([facility])[address] [place] [address] GLOMERULAR FILTRATION RATE ML/MIN/1.73 SQ M.PREDICTED 39.7 mL/min/1.73m*2 Low >60.0 [facility] Comment on above: Result Comment: The [facility]???s estimated glomerular filtration rate (eGFR) will no longer include consideration of race in its calculation. The National Kidney Foundation???s eGFR Task Force developed new recommendations for the estimation of the glomerular filtration rate in the [place] They recommend immediate implementation of the new equation refit without the race variable in all laboratories because the calculation does not include race. In addition to not including race in the calculation and reporting, it included diversity in its development, and has acceptable performance characteristics and potential consequences that do not disproportionately affect any one group of individuals. Performed By: #### L [id number] ####[facility] ([facility] [place] [address] Glucose [Mass/Vol] 85 mg/dL Normal 70-100 [facility] Comment on above: Performed By: #### L [id number] ####[facility] ([facility])[address] [place] [address] Potassium [Moles/Vol] 4.1 mmol/L Normal 3.5-5.1 [facility] Comment on above: Performed By: #### L [id number] ####[facility] ([facility])[address] [place] [address] Sodium [Moles/Vol] 137 mmol/L Normal 136-145 [facility] Comment on above: Performed By: #### L [id number] ####[facility] ([facility])[address] [place] [address] Urea nitrogen [Mass/Vol] 21 mg/dL Normal 7-25 [facility] Comment on above: Performed By: #### L [id number] ####[facility] [place] [address] UREA NITROGEN/CREATININE (MASS RATIO) IN SER/PLAS 16.15 Normal [facility] Comment on above: Performed By: #### L [id number] ####[facility] ([facility])[address] [place] [address] CBCon 06-11-2022 Erythrocyte distribution width (RBC) [Ratio] 16.8 % High 11.5-15.0 [facility] Comment on above: Performed By: #### L [id number] ####[facility] ([facility])[address] [place] [address] ERYTHROCYTE MEAN CORPUSCULAR HEMOGLOBIN CONCENTRATION (G/DL) BY AUTOMATED 33.6 g/dL Normal 32.0-35.0 [facility] Comment on above: Performed By: #### L [id number] ####[facility] ([facility])[address] [place] [address] Hematocrit (Bld) [Volume fraction] 28.0 % Low 36.0-48.0 [facility] Comment on above: Performed By: #### L [id number] ####[facility] ([facility])[address] [place] [address] Hemoglobin (Bld) [Mass/Vol] 9.4 g/dL Low 12.0-15.0 [facility] Comment on above: Performed By: #### L [id number] ####[facility] ([facility])[address] [place] [address] MCH (RBC) [Entitic mass] 30.6 pg Normal 27.0-33.0 [facility] Comment on above: Performed By: #### L [id number] ####[facility] ([facility])[address] [place] [address] MCV (RBC) [Entitic vol] 91.2 fL Normal 82.0-98.0 [facility] Comment on above: Performed By: #### L [id number] ####[facility] ([facility])[address] [place] [address] PLATELETS (10*3/UL) IN BLOOD AUTOMATED COUNT 305 10*3/uL Normal 150-400 [facility] Comment on above: Performed By: #### L [id number] ####[facility] ([facility])[address] [place] [address] RBC (Bld) [#/Vol] 3.07 10*6/uL Low 3.80-5.00 [facility] Comment on above: Performed By: #### L [id number] ####[facility] ([facility])[address] [place] [address] WBC (Bld) [#/Vol] 12.76 10*3/uL High 4.00-10.60 [facility] Comment on above: Performed By: #### L [id number] ####[facility] ([facility])[address] [place] [address] DSon 06-11-2022 DS Normal [facility] NURSNOTEon 06-11-2022 NURSNOTE Report called to [facility]. Per nursing staff they would like wound vac to be broken down as they would have to once she got there for measurements. Normal [facility] Telephoneon 06-11-2022 Telephone [phone] Neda Gonzalez 1945 F Date Provider Department Center 06/11/2022 LOVE [facility]ILLIAN [facility] Family History Family history unknown: Yes Normal [facility] BASIC METABOLIC PANELon 05-26 Anion gap [Moles/Vol] 5 mmol/L Low 7-20 [facility] Comment on above: Performed By: #### L [id number] ####[facility] ([facility])[address] [place] [address] Calcium [Mass/Vol] 7.6 mg/dL Low 8.6-10.3 [facility] Comment on above: Performed By: #### L [id number] ####[facility] ([facility])[address] [place] [address] Chloride [Moles/Vol] 105 mmol/L Normal 98-107 [facility] Comment on above: Performed By: #### L [id number] ####[facility] ([facility])[address] [place] [address] CO2 [Moles/Vol] 26 mmol/L Normal 21-31 [facility] Comment on above: Performed By: #### L [id number] ####[facility] ([facility])[address] [place] [address] Creatinine [Mass/Vol] 1.42 mg/dL High 0.60-1.20 [facility] Comment on above: Performed By: #### L [id number] ####[facility] ([facility])[address] [place] [address] GLOMERULAR FILTRATION RATE ML/MIN/1.73 SQ M.PREDICTED 35.7 mL/min/1.73m*2 Low >60.0 [facility] Comment on above: Result Comment: The [facility]???s estimated glomerular filtration rate (eGFR) will no longer include consideration of race in its calculation. The National Kidney Foundation???s eGFR Task Force developed new recommendations for the estimation of the glomerular filtration rate in the [place] They recommend immediate implementation of the new equation refit without the race variable in all laboratories because the calculation does not include race. In addition to not including race in the calculation and reporting, it included diversity in its development, and has acceptable performance characteristics and potential consequences that do not disproportionately affect any one group of individuals. Performed By: #### L [id number] ####[facility] ([facility])[address] [place] [address] Glucose [Mass/Vol] 78 mg/dL Normal 70-100 [facility] Comment on above: Performed By: #### L [id number] ####[facility] ([facility])[address] [facility] [place] [address] Potassium [Moles/Vol] 4.5 mmol/L Normal 3.5-5.1 [facility] Comment on above: Performed By: #### L [id number] ####[facility] ([facility])[address] [facility] [place] [address] Sodium [Moles/Vol] 136 mmol/L Normal 136-145 [facility] Comment on above: Performed By: #### L [id number] ####[facility] ([facility])[address] [facility] [place] [address] Urea nitrogen [Mass/Vol] 25 mg/dL Normal 7-25 [facility] Comment on above: Performed By: #### L [id number] ####[facility] ([facility])[address] [facility] [place] [address] UREA NITROGEN/CREATININE (MASS RATIO) IN SER/PLAS 17.61 Normal [facility] Comment on above: Performed By: #### L [id number] ####[facility] ([facility])[address] [facility] [place] [address] CBCon 06-10-2022 Erythrocyte distribution width (RBC) [Ratio] 16.9 % High 11.5-15.0 [facility] Comment on above: Performed By: #### L [id number] ####[facility] ([facility])[address] [facility] [place] [address] ERYTHROCYTE MEAN CORPUSCULAR HEMOGLOBIN CONCENTRATION (G/DL) BY AUTOMATED 33.8 g/dL Normal 32.0-35.0 [facility] Comment on above: Performed By: #### L [id number] ####[facility] [address] Hematocrit (Bld) [Volume fraction] 28.1 % Low 36.0-48.0 [facility] Comment on above: Performed By: #### L [id number] ####[facility] [place] [address] Hemoglobin (Bld) [Mass/Vol] 9.5 g/dL Low 12.0-15.0 [facility] Comment on above: Performed By: #### L [id number] ####[facility] ([facility])[address] [place] [address] MCH (RBC) [Entitic mass] 30.3 pg Normal 27.0-33.0 [facility] Comment on above: Performed By: #### L [id number] ####[facility] ([facility])[address] [place] [address] MCV (RBC) [Entitic vol] 89.5 fL Normal 82.0-98.0 [facility] Comment on above: Performed By: #### L [id number] ####[facility] ([facility])[address] [place] [address] PLATELETS (10*3/UL) IN BLOOD AUTOMATED COUNT 321 10*3/uL Normal 150-400 [facility] Comment on above: Performed By: #### L [id number] ####[facility] ([facility])[address] [place] [address] RBC (Bld) [#/Vol] 3.14 10*6/uL Low 3.80-5.00 [facility] Comment on above: Performed By: #### L [id number] ####[facility] ([facility])[address] [place] [address] WBC (Bld) [#/Vol] 16.31 10*3/uL High 4.00-10.60 [facility] Comment on above: Performed By: #### L [id number] ####[facility] ([facility])[address] [place] [address] HEMOGLOBINon 06-10-2022 Hemoglobin (Bld) [Mass/Vol] 9.2 g/dL Low 12.0-15.0 [facility] Comment on above: Performed By: #### L [id number] ####[facility] ([facility])[address] [place] [address] BASIC METABOLIC PANELon 05-26 Anion gap [Moles/Vol] 5 mmol/L Low 7-20 [facility] Comment on above: Performed By: #### L [id number] ####[facility] [place] [address] Calcium [Mass/Vol] 7.4 mg/dL Low 8.6-10.3 [facility] Comment on above: Performed By: #### L [id number] ####[facility] [place] [address] Chloride [Moles/Vol] 105 mmol/L Normal 98-107 [facility] Comment on above: Performed By: #### L [id number] ####[facility] [place] [address] CO2 [Moles/Vol] 25 mmol/L Normal 21-31 [facility] Comment on above: Performed By: #### L [id number] ####[facility] [place] [address] Creatinine [Mass/Vol] 1.60 mg/dL High 0.60-1.20 [facility] Comment on above: Performed By: #### L [id number] ####[facility] [place] [address] GLOMERULAR FILTRATION RATE ML/MIN/1.73 SQ M.PREDICTED 30.9 mL/min/1.73m*2 Low >60.0 [facility] Comment on above: Result Comment: The [facility]???s estimated glomerular filtration rate (eGFR) will no longer include consideration of race in its calculation. The National Kidney Foundation???s eGFR Task Force developed new recommendations for the estimation of the glomerular filtration rate in the [place] They recommend immediate implementation of the new equation refit without the race variable in all laboratories because the calculation does not include race. In addition to not including race in the calculation and reporting, it included diversity in its development, and has acceptable performance characteristics and potential consequences that do not disproportionately affect any one group of individuals. Performed By: #### L [id number] ####[facility] ([facility])[address] [place] [address] Glucose [Mass/Vol] 97 mg/dL Normal 70-100 [facility] Comment on above: Performed By: #### L [id number] ####[facility] ([facility])[address] [place] [address] Potassium [Moles/Vol] 4.8 mmol/L Normal 3.5-5.1 [facility] Comment on above: Performed By: #### L [id number] ####[facility] ([facility])[address] [place] [address] Sodium [Moles/Vol] 135 mmol/L Low 136-145 [facility] Comment on above: Performed By: #### L [id number] ####[facility] ([facility])[address] [place] [address] Urea nitrogen [Mass/Vol] 31 mg/dL High 7-25 [facility] Comment on above: Performed By: #### L [id number] ####[facility] ([facility])[address] [place] [address] UREA NITROGEN/CREATININE (MASS RATIO) IN SER/PLAS 19.38 Normal [facility] Comment on above: Performed By: #### L [id number] ####[facility] ([facility])[address] [place] [address] Anion gap [Moles/Vol] 8 mmol/L Normal 7-20 [facility] Comment on above: Performed By: #### L [id number] ####[facility] ([facility])[address] [place] [address] Calcium [Mass/Vol] 7.6 mg/dL Low 8.6-10.3 [facility] Comment on above: Performed By: #### L [id number] ####[facility] ([facility])[address] [place] [address] Chloride [Moles/Vol] 104 mmol/L Normal 98-107 [facility] Comment on above: Performed By: #### L [id number] ####[facility] ([facility])[address] [place] [address] CO2 [Moles/Vol] 22 mmol/L Normal 21-31 [facility] Comment on above: Performed By: #### L [id number] ####[facility] ([facility])[address] [facility] [place] [address] Creatinine [Mass/Vol] 1.81 mg/dL High 0.60-1.20 [facility] Comment on above: Performed By: #### L [id number] ####[facility] ([facility])[address] [place] [address] GLOMERULAR FILTRATION RATE ML/MIN/1.73 SQ M.PREDICTED 26.6 mL/min/1.73m*2 Low >60.0 [facility] Comment on above: Result Comment: The [facility]???s estimated glomerular filtration rate (eGFR) will no longer include consideration of race in its calculation. The National Kidney Foundation???s eGFR Task Force developed new recommendations for the estimation of the glomerular filtration rate in the [place] They recommend immediate implementation of the new equation refit without the race variable in all laboratories because the calculation does not include race. In addition to not including race in the calculation and reporting, it included diversity in its development, and has acceptable performance characteristics and potential consequences that do not disproportionately affect any one group of individuals. Performed By: #### L [id number] ####[facility] ([facility])[address] [place] [address] Glucose [Mass/Vol] 101 mg/dL High 70-100 [facility] Comment on above: Performed By: #### L [id number] ####[facility] ([facility])[address] [place] [address] Potassium [Moles/Vol] 5.2 mmol/L High 3.5-5.1 [facility] Comment on above: Performed By: #### L [id number] ####[facility] ([facility])[address] [place] [address] Sodium [Moles/Vol] 134 mmol/L Low 136-145 [facility] Comment on above: Performed By: #### L [id number] ####[facility] ([facility])[address] [place] [address] Urea nitrogen [Mass/Vol] 33 mg/dL High 7-25 [facility] Comment on above: Performed By: #### L [id number] ####[facility] ([facility])[address] [place] [address] UREA NITROGEN/CREATININE (MASS RATIO) IN SER/PLAS 18.23 Normal [facility] Comment on above: Performed By: #### L [id number] ####[facility] ([facility])[address] [place] [address] CBCon 06-09-2022 Erythrocyte distribution width (RBC) [Ratio] 15.9 % High 11.5-15.0 [facility] Comment on above: Performed By: #### L [id number] ####[facility] ([facility])[address] [place] [address] ERYTHROCYTE MEAN CORPUSCULAR HEMOGLOBIN CONCENTRATION (G/DL) BY AUTOMATED 30.5 g/dL Low 32.0-35.0 [facility] Comment on above: Performed By: #### L [id number] ####[facility] ([facility])[address] [place] [address] Hematocrit (Bld) [Volume fraction] 21.3 % Low 36.0-48.0 [facility] Comment on above: Performed By: #### L [id number] ####[facility] ([facility])[address] [place] [address] Hemoglobin (Bld) [Mass/Vol] 6.5 g/dL Low 12.0-15.0 [facility] Comment on above: Result Comment: Bri ent had surgery Performed By: #### L [id number] ####[facility] [place] [address] MCH (RBC) [Entitic mass] 29.7 pg Normal 27.0-33.0 [facility] Comment on above: Performed By: #### L [id number] ####[facility] ([facility])[address] [place] [address] MCV (RBC) [Entitic vol] 97.3 fL Normal 82.0-98.0 [facility] Comment on above: Performed By: #### L [id number] ####[facility] [place] [address] PLATELETS (10*3/UL) IN BLOOD AUTOMATED COUNT 428 10*3/uL High 150-400 [facility] Comment on above: Performed By: #### L [id number] ####[facility] ([facility] [place] [address] RBC (Bld) [#/Vol] 2.19 10*6/uL Low 3.80-5.00 [facility] Comment on above: Performed By: #### L [id number] ####[facility] (BEAKER)[address] [place] [address] WBC (Bld) [#/Vol] 14.34 10*3/uL High 4.00-10.60 [facility] Comment on above: Performed By: #### L [id number] ####[facility] (BEAKER)[address] [place] [address] HEMOGLOBINon 06-09-2022 Hemoglobin (Bld) [Mass/Vol] 9.8 g/dL Low 12.0-15.0 [facility] Comment on above: Performed By: #### L [id number] ####[facility] (BEAKER)[address] [place] [address] NURSNOTEon 06-09-2022 NURSNOTE [employer] notified Dr ulices bailey low BP and labs. Awaiting response. Normal [facility] BASIC METABOLIC PANELon 05-26 Anion gap [Moles/Vol] 10 mmol/L Normal 7-20 [facility] Comment on above: Performed By: #### L [id number] ####[facility] (BEAKER)[address] [place] [address] Calcium [Mass/Vol] 8.4 mg/dL Low 8.6-10.3 [facility] Comment on above: Performed By: #### L [id number] ####[facility] (BEAKER)[address] [place] [address] Chloride [Moles/Vol] 106 mmol/L Normal 98-107 [facility] Comment on above: Performed By: #### L [id number] ####[facility] (BEAKER)[address] [place] [address] CO2 [Moles/Vol] 21 mmol/L Normal 21-31 [facility] Comment on above: Performed By: #### L [id number] ####[facility] (BEAKER)[address] [place] [address] Creatinine [Mass/Vol] 1.54 mg/dL High 0.60-1.20 [facility] Comment on above: Performed By: #### L [id number] ####[facility] (BEAKER)[address] [facility] [address] GLOMERULAR FILTRATION RATE ML/MIN/1.73 SQ M.PREDICTED 32.3 mL/min/1.73m*2 Low >60.0 [facility] Comment on above: Result Comment: The [facility]???s estimated glomerular filtration rate (eGFR) will no longer include consideration of race in its calculation. The National Kidney Foundation???s eGFR Task Force developed new recommendations for the estimation of the glomerular filtration rate in the [place] They recommend immediate implementation of the new equation refit without the race variable in all laboratories because the calculation does not include race. In addition to not including race in the calculation and reporting, it included diversity in its development, and has acceptable performance characteristics and potential consequences that do not disproportionately affect any one group of individuals. Performed By: #### L [id number] ####[facility] ([facility])[address] [place] [address] Glucose [Mass/Vol] 119 mg/dL High 70-100 [facility] Comment on above: Performed By: #### L [id number] ####[facility] ([facility])[address] [place] [address] Potassium [Moles/Vol] 6.0 mmol/L High 3.5-5.1 [facility] Comment on above: Performed By: #### L [id number] ####[facility] ([facility])[address] [place] [address] Sodium [Moles/Vol] 137 mmol/L Normal 136-145 [facility] Comment on above: Performed By: #### L [id number] ####[facility] ([facility])[address] [address] Urea nitrogen [Mass/Vol] 29 mg/dL High 7-25 [facility] Comment on above: Performed By: #### L [id number] ####[facility] ([facility])[address] [place] [address] UREA NITROGEN/CREATININE (MASS RATIO) IN SER/PLAS 18.83 Normal [facility] Comment on above: Performed By: #### L [id number] ####[facility] ([facility])[address] [place] [address] CBCon 06-08-2022 Erythrocyte distribution width (RBC) [Ratio] 15.7 % High 11.5-15.0 [facility] Comment on above: Performed By: #### L [id number] ####[facility] ([facility])[address] [place] [address] ERYTHROCYTE MEAN CORPUSCULAR HEMOGLOBIN CONCENTRATION (G/DL) BY AUTOMATED 30.1 g/dL Low 32.0-35.0 [facility] Comment on above: Performed By: #### L [id number] ####[facility] (BEAKER)[address] [place] [address] Hematocrit (Bld) [Volume fraction] 29.2 % Low 36.0-48.0 [facility] Comment on above: Performed By: #### L [id number] ####[facility] (BEAKER)[address] [place] [address] Hemoglobin (Bld) [Mass/Vol] 8.8 g/dL Low 12.0-15.0 [facility] Comment on above: Performed By: #### L [id number] ####[facility] (BEAKER)[address] [place], [place] [address] MCH (RBC) [Entitic mass] 29.6 pg Normal 27.0-33.0 [facility] Comment on above: Performed By: #### L [id number] ####[facility] (BEAKER)[address] [place], [place] [address] MCV (RBC) [Entitic vol] 98.3 fL High 82.0-98.0 [facility] Comment on above: Performed By: #### L [id number] ####[facility] (BEAKER)[address] [place] [address] PLATELETS (10*3/UL) IN BLOOD AUTOMATED COUNT 550 10*3/uL High 150-400 [facility] Comment on above: Performed By: #### L [id number] ####[facility] (BEAKER)[address] [place], [place] [address] RBC (Bld) [#/Vol] 2.97 10*6/uL Low 3.80-5.00 [facility] Comment on above: Performed By: #### L [id number] ####[facility] (BEAKER)[address] [place], [place] [address] WBC (Bld) [#/Vol] 24.65 10*3/uL High 4.00-10.60 [facility] Comment on above: Performed By: #### L [id number] ####[facility] (BEAKER)[address] [place] [address] CK TOTAL AND CKMBon 06-08-19 23 CREATINE KINASE (U/L) IN SER/PLAS 271.0 U/L High 30.0-223.0 [facility] Comment on above: Performed By: #### L [id number] ####[facility] ([facility])[address] [place] [address] CREATINE KINASE MB/CREATINE KINASE TOTAL BY CALCULATION 5.60 Critically high 0.00-1.90 [facility] Comment on above: Performed By: #### L [id number] ####[facility] ([facility])[address] [place] [address] CREATINE KINASE-MB (NG/ML) IN SER/PLAS 15.3 ng/mL High 0.0-5.0 [facility] Comment on above: Result Comment: M-CR ITICAL RESULT(S) REVIEWED, CALLED TO AND READ BACK BY DAYRON BOSWELL RN, AT 1308 Performed By: #### L [id number] ####[facility] ([facility])[address] [place] [address] CONSULTon 06-08-2022 CONSULT Normal [facility] MAGNESIUMon 06-08-2022 Magnesium [Mass/Vol] 1.9 mg/dL Normal 1.9-2.7 [facility] Comment on above: Performed By: #### L [id number] ####[facility] ([facility])[address] [place] [address] NURSNOTEon 06-08-2022 NURSNOTE Normal [facility] ANESon 06-07-2022 ANES Normal [facility] BASIC METABOLIC PANELon 05-26 Anion gap [Moles/Vol] 5 mmol/L Low 7-20 [facility] Comment on above: Performed By: #### L [id number] ####[facility] ([facility])[address] [place] [address] Calcium [Mass/Vol] 7.8 mg/dL Low 8.6-10.3 [facility] Comment on above: Performed By: #### L [id number] ####[facility] (BEAKER)[address] [place] [address] Chloride [Moles/Vol] 108 mmol/L High 98-107 [facility] Comment on above: Performed By: #### L [id number] ####[facility] (BEAKER)[address] [place] [address] CO2 [Moles/Vol] 25 mmol/L Normal 21-31 [facility] Comment on above: Performed By: #### L [id number] ####[facility] (BEAKER)[address] [place] [address] Creatinine [Mass/Vol] 1.36 mg/dL High 0.60-1.20 [facility] Comment on above: Performed By: #### L [id number] ####[facility] ([facility])[address] [place] [address] GLOMERULAR FILTRATION RATE ML/MIN/1.73 SQ M.PREDICTED 37.6 mL/min/1.73m*2 Low >60.0 [facility] Comment on above: Result Comment: The [facility]???s estimated glomerular filtration rate (eGFR) will no longer include consideration of race in its calculation. The National Kidney Foundation???s eGFR Task Force developed new recommendations for the estimation of the glomerular filtration rate in the [place] They recommend immediate implementation of the new equation refit without the race variable in all laboratories because the calculation does not include race. In addition to not including race in the calculation and reporting, it included diversity in its development, and has acceptable performance characteristics and potential consequences that do not disproportionately affect any one group of individuals. Performed By: #### L [id number] ####[facility] (BEAKER)[address] [place] [address] Glucose [Mass/Vol] 75 mg/dL Normal 70-100 [facility] Comment on above: Performed By: #### L [id number] ####[facility] (BEAKER)[address] [place] [place] [address] Potassium [Moles/Vol] 5.2 mmol/L High 3.5-5.1 [facility] Comment on above: Performed By: #### L [id number] ####[facility] ([facility])[address] [place] [address] Sodium [Moles/Vol] 138 mmol/L Normal 136-145 [facility] Comment on above: Performed By: #### L [id number] ####[facility] ([facility])[address] [place] [address] Urea nitrogen [Mass/Vol] 26 mg/dL High 7-25 [facility] Comment on above: Performed By: #### L [id number] ####[facility] ([facility])[address] [place] [address] UREA NITROGEN/CREATININE (MASS RATIO) IN SER/PLAS 19.12 Normal [facility] Comment on above: Performed By: #### L [id number] ####[facility] ([facility])[address] [place] [address] BODY FLUID CULTUREon 023 Bacteria identified Cx Nom (Unsp spec) Critically abnormal [facility] Comment on above: Order Comment: Pre-o p diagnosis:Prosthetic joint infection, 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 These results have been appended to a previously final verified report. Performed By: #### L [id number] ####[facility] ([facility])[address] [place] [address] GRAM STAIN RESULT Abnormal [facility] Comment on above: Order Comment: Pre-o p diagnosis:Prosthetic joint infection, subsequent encounter [T84.50XD] Result Comment: Many Polymorphonuclear leukocytesRare Gram positive cocci in clusters Performed By: #### L [id number] ####[facility] ([facility])[address] [place] [address] CBCon 06-07-2022 Erythrocyte distribution width (RBC) [Ratio] 15.7 % High 11.5-15.0 [facility] Comment on above: Performed By: #### L [id number] ####[facility] ([facility] [address] ERYTHROCYTE MEAN CORPUSCULAR HEMOGLOBIN CONCENTRATION (G/DL) BY AUTOMATED 29.4 g/dL Low 32.0-35.0 [facility] Comment on above: Performed By: #### L [id number] ####[facility] ([facility] [place] [address] Hematocrit (Bld) [Volume fraction] 31.6 % Low 36.0-48.0 [facility] Comment on above: Performed By: #### L [id number] ####[facility] ([facility] [place] [address] Hemoglobin (Bld) [Mass/Vol] 9.3 g/dL Low 12.0-15.0 [facility] Comment on above: Performed By: #### L [id number] ####[facility] (BEAKER)[address] [place] [address] MCH (RBC) [Entitic mass] 28.6 pg Normal 27.0-33.0 [facility] Comment on above: Performed By: #### L [id number] ####[facility] (BEAKER)[address] [place] [address] MCV (RBC) [Entitic vol] 97.2 fL Normal 82.0-98.0 [facility] Comment on above: Performed By: #### L [id number] ####[facility] (BEAKER)[address] [place] [address] PLATELETS (10*3/UL) IN BLOOD AUTOMATED COUNT 569 10*3/uL High 150-400 [facility] Comment on above: Performed By: #### L [id number] ####[facility] (BEAKER)[address] [place] [address] RBC (Bld) [#/Vol] 3.25 10*6/uL Low 3.80-5.00 [facility] Comment on above: Performed By: #### L [id number] ####[facility] ([facility])[address] [place] [address] WBC (Bld) [#/Vol] 10.33 10*3/uL Normal 4.00-10.60 [facility] Comment on above: Performed By: #### L [id number] ####[facility] ([facility])[address] [place] [address] HPon 06-07-2022 HP Normal [facility] MRSA/MSSA DNA NASALon 2022 MRSA DNA Positive Abnormal Negative, Invalid [facility] Comment on above: Performed By: #### L [id number] ####[facility] ([facility])[address] [place] [address] MSSA DNA Negative Normal Negative, Invalid [facility] Comment on above: Performed By: #### L [id number] ####[facility] ([facility])[address] [place] [address] NURSNOTEon 06-07-2022 NURSNOTE Xray at bedside Noemí Nielsen RN PACU Normal [facility] NURSNOTE Normal [facility] OPNOTEon 06-07-2022 OPNOTE Normal [facility] POCT GLUCOSE METER UNSOLICIT ED RESULTSon 06-07-2022 Glucose [Mass/Vol] 82 mg/dL Normal 70-105 [facility] Comment on above: Result Comment: dhol as Performed By: #### L [id number] ####[facility] ([facility])[address] [place] [address] POCT SARS-COV-2 PCRon 2022 POC SARS-COV-2 ANTIGEN Negative Normal Negative [facility] Comment on above: Result Comment: ID N OW COVID-19 assay performed on the ID NOW Instrument is a rapid molecular in vitro diagnostic test utilizing an isothermal nucleic acid amplification technology intended for the qualitative detection of nucleic acid from the SARS-CoV-2 virus indirect anterior nasal(nasal), nasopharyngeal or throat swabs from individuals who are suspected of COVID-19 by their healthcare provider within the first seven days of the onset of symptoms.Testing is limited to laboratories certified under the ClinicalLaboratory Improvement Amendments of 1988 (CLIA), 42 U.S.C. ???263a,that meet the requirements to perform high, moderate, or waived complexity tests. The ID NOW COVID-19 assay is also authorized for use at the Point of Care (POC), i.e., in patient caresettings operating under a CLIA Certificate of Waiver, Certificate of Compliance, or Certificate of Accreditation. Performed By: #### L [id number] ####[facility] ([facility])[address] [place] [address] TISSUE CULTUREon 06-07-2022 Bacteria identified Cx Nom (Unsp spec) Critically abnormal [facility] Comment on above: Order Comment: Pre-o p diagnosis:Prosthetic joint infection, subsequent encounter [T84.50XD] Result Comment: STAP HYLOCOCCUS AUREUS METHICILLIN (OXACILLIN) RESISTANTLight Growth Methicillin-Resistant Staphylococcus aureusFor Susceptibility Results Please Refer to FAECALISIsolated from Broth Culture Enterococcus faecalisFor Susceptibility Results Please Refer to is an appended report. These results have been appended to a previously final verified report. Performed By: #### L [id number] ####[facility] ([employer])[address] [place] [address] GRAM STAIN RESULT Normal [facility] Comment on above: Order Comment: Pre-o p diagnosis:Prosthetic joint infection, subsequent encounter [T84.50XD] Result Comment: Mode rate Polymorphonuclear leukocytesNo organisms seen Performed By: #### L [id number] ####[facility] ([facility])[address] [place] [address] Ampicillin [Susc] 1 ug/ml Susceptible [facility] Comment on above: Order Comment: Pre-o p diagnosis:Prosthetic joint infection, subsequent encounter [T84.50XD]Gram Negative Bacilli Seen in Original Gram Stain are Non-Viable Upon Culture Performed By: #### L [id number] ####[facility] ([facility] [place] [address] Vancomycin [Susc] 1 ug/ml Susceptible [facility] Comment on above: Order Comment: Pre-o p diagnosis:Prosthetic joint infection, subsequent encounter [T84.50XD]Gram Negative Bacilli Seen in Original Gram Stain are Non-Viable Upon Culture Performed By: #### L [id number] ####[facility] ([facility])[address] [place] [address] BASIC METABOLIC PANELon 05-26 Anion gap [Moles/Vol] 5 mmol/L Low 7-20 [facility] Comment on above: Performed By: #### L [id number] ####[facility] ([facility])[address] [place] [address] Calcium [Mass/Vol] 8.0 mg/dL Low 8.6-10.3 [facility] Comment on above: Performed By: #### L [id number] ####[facility] ([facility])[address] [place] [address] Chloride [Moles/Vol] 108 mmol/L High 98-107 [facility] Comment on above: Performed By: #### L [id number] ####[facility] ([facility])[address] [place] [address] CO2 [Moles/Vol] 25 mmol/L Normal 21-31 [facility] Comment on above: Performed By: #### L [id number] ####[facility] ([facility] [place] [address] Creatinine [Mass/Vol] 1.28 mg/dL High 0.60-1.20 [facility] Comment on above: Performed By: #### L [id number] ####[facility] ([facility])[address] [place] [address] GLOMERULAR FILTRATION RATE ML/MIN/1.73 SQ M.PREDICTED 40.4 mL/min/1.73m*2 Low >60.0 [facility] Comment on above: Result Comment: The [facility]???s estimated glomerular filtration rate (eGFR) will no longer include consideration of race in its calculation. The National Kidney Foundation???s eGFR Task Force developed new recommendations for the estimation of the glomerular filtration rate in the [place] They recommend immediate implementation of the new equation refit without the race variable in all laboratories because the calculation does not include race. In addition to not including race in the calculation and reporting, it included diversity in its development, and has acceptable performance characteristics and potential consequences that do not disproportionately affect any one group of individuals. Performed By: #### L [id number] ####[facility] (BEAKER)[address] [place] [address] Glucose [Mass/Vol] 76 mg/dL Normal 70-100 [facility] Comment on above: Performed By: #### L [id number] ####[facility] ([facility] [place] [address] Potassium [Moles/Vol] 4.6 mmol/L Normal 3.5-5.1 [facility] Comment on above: Performed By: #### L [id number] ####[facility] (BEAKER)[address] [place] [address] Sodium [Moles/Vol] 138 mmol/L Normal 136-145 [facility] Comment on above: Performed By: #### L [id number] ####[facility] (BEAKER)[address] [place] [address] Urea nitrogen [Mass/Vol] 27 mg/dL High 7-25 [facility] Comment on above: Performed By: #### L [id number] ####[facility] (BEAKER)[address] [place] [address] UREA NITROGEN/CREATININE (MASS RATIO) IN SER/PLAS 21.09 Normal [facility] Comment on above: Performed By: #### L [id number] ####[facility] (BEAKER)[address] [place] [address] CBCon 06-06-2022 Erythrocyte distribution width (RBC) [Ratio] 15.9 % High 11.5-15.0 [facility] Comment on above: Performed By: #### L [id number] ####[facility] (BEAKER)[address] [place] [address] ERYTHROCYTE MEAN CORPUSCULAR HEMOGLOBIN CONCENTRATION (G/DL) BY AUTOMATED 31.1 g/dL Low 32.0-35.0 [facility] Comment on above: Performed By: #### L [id number] ####[facility] ([facility] [place] [address] Hematocrit (Bld) [Volume fraction] 30.5 % Low 36.0-48.0 [facility] Comment on above: Performed By: #### L [id number] ####[facility] ([facility] [place] [address] Hemoglobin (Bld) [Mass/Vol] 9.5 g/dL Low 12.0-15.0 [facility] Comment on above: Performed By: #### L [id number] ####[facility] ([facility] [place] [address] MCH (RBC) [Entitic mass] 30.4 pg Normal 27.0-33.0 [facility] Comment on above: Performed By: #### L [id number] ####[facility] (BEAKER)[address] [place] [address] MCV (RBC) [Entitic vol] 97.4 fL Normal 82.0-98.0 [facility] Comment on above: Performed By: #### L [id number] ####[facility] (BEAKER)[address] [place] [address] PLATELETS (10*3/UL) IN BLOOD AUTOMATED COUNT 505 10*3/uL High 150-400 [facility] Comment on above: Performed By: #### L [id number] ####[facility] (BEAKER)[address] [place] [address] RBC (Bld) [#/Vol] 3.13 10*6/uL Low 3.80-5.00 [facility] Comment on above: Performed By: #### L [id number] ####[facility] ([facility])[address] [place] [address] WBC (Bld) [#/Vol] 10.94 10*3/uL High 4.00-10.60 [facility] Comment on above: Performed By: #### L [id number] ####[facility] ([facility])[address] [place] [address] MAGNESIUMon 06-06-2022 Magnesium [Mass/Vol] 1.9 mg/dL Normal 1.9-2.7 [facility] Comment on above: Performed By: #### L [id number] ####[facility] ([facility])[address] [place] [address] NURSNOTEon 06-06-2022 NURSNOTE [employer] called ortho to get dressing change orders, commercial insurance underwriter was instructed to place dressing if previous dressing was saturated and not to worry about dressing change orders due to pt going to surgery tomorrow. Normal [facility] Prep for Procedureon 023 Prep for Procedure [id number] Neda Gonzalez 1945 F Date Provider Department [facility] Family History Family history unknown: Yes Normal [facility] TYPE AND SCREENon 06-06-2022 AB SCREEN Negative Normal [facility] Comment on above: Performed By: #### L [id number] ####[facility], ABO group Nom (Bld) AB Normal [facility] Comment on above: Performed By: #### L [id number] ####[facility], RH TYPE IN BLOOD Positive Normal [facility] Comment on above: Performed By: #### L [id number] ####[facility], BASIC METABOLIC PANELon 05-26 Anion gap [Moles/Vol] 6 mmol/L Low 7-20 [facility] Comment on above: Performed By: #### L [id number] ####[facility] ([facility])[address] [place] [address] Calcium [Mass/Vol] 8.3 mg/dL Low 8.6-10.3 [facility] Comment on above: Performed By: #### L [id number] ####[facility] [place] [address] Chloride [Moles/Vol] 106 mmol/L Normal 98-107 [facility] Comment on above: Performed By: #### L [id number] ####[facility] ([facility])[address] [place] [address] CO2 [Moles/Vol] 26 mmol/L Normal 21-31 [facility] Comment on above: Performed By: #### L [id number] ####[facility] ([facility])[address] [place] [address] Creatinine [Mass/Vol] 1.30 mg/dL High 0.60-1.20 [facility] Comment on above: Performed By: #### L [id number] ####[facility] ([facility])[address] [place] [address] GLOMERULAR FILTRATION RATE ML/MIN/1.73 SQ M.PREDICTED 39.7 mL/min/1.73m*2 Low >60.0 [facility] Comment on above: Result Comment: The [facility]???s estimated glomerular filtration rate (eGFR) will no longer include consideration of race in its calculation. The National Kidney Foundation???s eGFR Task Force developed new recommendations for the estimation of the glomerular filtration rate in the [place] They recommend immediate implementation of the new equation refit without the race variable in all laboratories because the calculation does not include race. In addition to not including race in the calculation and reporting, it included diversity in its development, and has acceptable performance characteristics and potential consequences that do not disproportionately affect any one group of individuals. Performed By: #### L AB15 ####[facility] ([facility] [place] [address] Glucose [Mass/Vol] 76 mg/dL Normal 70-100 [facility] Comment on above: Performed By: #### L AB15 ####[facility] (BEAKER)[address] [place] [address] Potassium [Moles/Vol] 4.7 mmol/L Normal 3.5-5.1 [facility] Comment on above: Performed By: #### L AB15 ####[facility] (BEAKER)[address] [place] [address] Sodium [Moles/Vol] 138 mmol/L Normal 136-145 [facility] Comment on above: Performed By: #### L AB15 ####[facility] ([facility]ER)[address] [place] [address] Urea nitrogen [Mass/Vol] 28 mg/dL High 7-25 [facility] Comment on above: Performed By: #### L AB15 ####[facility] ([facility]ER)[address] [place] [address] UREA NITROGEN/CREATININE (MASS RATIO) IN SER/PLAS 21.54 Normal [facility] Comment on above: Performed By: #### L AB15 ####[facility] ([facility])[address] [place] [address] Anion gap [Moles/Vol] 9 mmol/L Normal 7-20 [facility] Comment on above: Performed By: #### L AB15 ####[facility] ([facility]ER)[address] [place] [address] Calcium [Mass/Vol] 8.2 mg/dL Low 8.6-10.3 [facility] Comment on above: Performed By: #### L AB15 ####[facility] ([facility])[address] [place] [address] Chloride [Moles/Vol] 105 mmol/L Normal 98-107 [facility] Comment on above: Performed By: #### L AB15 ####[facility] ([facility]ER)[address] [place] [address] CO2 [Moles/Vol] 22 mmol/L Normal 21-31 [facility] Comment on above: Performed By: #### L AB15 ####[facility] ([facility])[address] [place] [address] Creatinine [Mass/Vol] 1.41 mg/dL High 0.60-1.20 [facility] Comment on above: Performed By: #### L AB15 ####[facility] ([facility])[address] [place] [address] GLOMERULAR FILTRATION RATE ML/MIN/1.73 SQ M.PREDICTED 36.0 mL/min/1.73m*2 Low >60.0 [facility] Comment on above: Result Comment: [facility]???s estimated glomerular filtration rate (eGFR) will no longer include consideration of race in its calculation. The National Kidney Foundation???s eGFR Task Force developed new recommendations for the estimation of the glomerular filtration rate in the [place] They recommend immediate implementation of the new equation refit without the race variable in all laboratories because the calculation does not include race. In addition to not including race in the calculation and reporting, it included diversity in its development, and has acceptable performance characteristics and potential consequences that do not disproportionately affect any one group of individuals. Performed By: #### L AB15 ####[facility] ([facility])[address] [place] [address] Glucose [Mass/Vol] 98 mg/dL Normal 70-100 [facility] Comment on above: Performed By: #### L AB15 ####[facility] ([facility])[address] [place] [address] Potassium [Moles/Vol] 4.7 mmol/L Normal 3.5-5.1 [facility] Comment on above: Performed By: #### L AB15 ####[facility] ([facility])[address] [place] [address] Sodium [Moles/Vol] 136 mmol/L Normal 136-145 [facility] Comment on above: Performed By: #### L AB15 ####[facility] ([facility])[address] [place] [address] Urea nitrogen [Mass/Vol] 31 mg/dL High 7-25 [facility] Comment on above: Performed By: #### L AB15 ####[facility] ([facility] [place] [address] UREA NITROGEN/CREATININE (MASS RATIO) IN SER/PLAS 21.99 Normal [facility] Comment on above: Performed By: #### L AB15 ####[facility] ([facility] [place] [address] C-REACTIVE PROTEINon 023 C REACTIVE PROTEIN (MG/L) IN SER/PLAS 25.9 mg/L High 0.0-7.0 [facility] Comment on above: Performed By: #### L [id number] ####[facility] ([facility])[address] [place] [address] CBCon 06-05-2022 Erythrocyte distribution width (RBC) [Ratio] 15.6 % High 11.5-15.0 [facility] Comment on above: Performed By: #### L [id number] ####[facility] ([facility])[address] [place] [address] ERYTHROCYTE MEAN CORPUSCULAR HEMOGLOBIN CONCENTRATION (G/DL) BY AUTOMATED 30.9 g/dL Low 32.0-35.0 [facility] Comment on above: Performed By: #### L [id number] ####[facility] (BEAKER)[address] [place] [address] Hematocrit (Bld) [Volume fraction] 31.4 % Low 36.0-48.0 [facility] Comment on above: Performed By: #### L [id number] ####[facility] (BEAKER)[address] [place] [address] Hemoglobin (Bld) [Mass/Vol] 9.7 g/dL Low 12.0-15.0 [facility] Comment on above: Performed By: #### L [id number] ####[facility] ([facility]ER)[address] [place] [address] MCH (RBC) [Entitic mass] 30.0 pg Normal 27.0-33.0 [facility] Comment on above: Performed By: #### L [id number] ####[facility] (BEAKER)[address] [place] [address] MCV (RBC) [Entitic vol] 97.2 fL Normal 82.0-98.0 [facility] Comment on above: Performed By: #### L [id number] ####[facility] ([facility])[address] [place] [address] PLATELETS (10*3/UL) IN BLOOD AUTOMATED COUNT 552 10*3/uL High 150-400 [facility] Comment on above: Performed By: #### L [id number] ####[facility] ([facility])[address] [place], [place] [address] RBC (Bld) [#/Vol] 3.23 10*6/uL Low 3.80-5.00 [facility] Comment on above: Performed By: #### L [id number] ####[facility] ([facility])[address] [place], [place] [address] WBC (Bld) [#/Vol] 9.78 10*3/uL Normal 4.00-10.60 [facility] Comment on above: Performed By: #### L [id number] ####[facility] ([facility])[address] [place] [address] Erythrocyte distribution width (RBC) [Ratio] 15.7 % High 11.5-15.0 [facility] Comment on above: Performed By: #### L [id number] ####[facility] (BEAKER)[address] [place] [address] ERYTHROCYTE MEAN CORPUSCULAR HEMOGLOBIN CONCENTRATION (G/DL) BY AUTOMATED 31.8 g/dL Low 32.0-35.0 [facility] Comment on above: Performed By: #### L [id number] ####[facility] ([facility]ER)[address] [place] [address] Hematocrit (Bld) [Volume fraction] 31.4 % Low 36.0-48.0 [facility] Comment on above: Performed By: #### L [id number] ####[facility] ([facility])[address] [place] [address] Hemoglobin (Bld) [Mass/Vol] 10.0 g/dL Low 12.0-15.0 [facility] Comment on above: Performed By: #### L [id number] ####[facility] ([facility])[address] [place] [address] MCH (RBC) [Entitic mass] 30.6 pg Normal 27.0-33.0 [facility] Comment on above: Performed By: #### L [id number] ####[facility] ([facility])[address] [place] [address] MCV (RBC) [Entitic vol] 96.0 fL Normal 82.0-98.0 [facility] Comment on above: Performed By: #### L [id number] ####[facility] ([facility])[address] [place] [address] PLATELETS (10*3/UL) IN BLOOD AUTOMATED COUNT 555 10*3/uL High 150-400 [facility] Comment on above: Performed By: #### L [id number] ####[facility] ([facility])[address] [place] [address] RBC (Bld) [#/Vol] 3.27 10*6/uL Low 3.80-5.00 [facility] Comment on above: Performed By: #### L [id number] ####[facility] ([facility])[address] [place] [address] WBC (Bld) [#/Vol] 11.87 10*3/uL High 4.00-10.60 [facility] Comment on above: Performed By: #### L [id number] ####[facility] ([facility])[address] [place] [address] CONSULTon 06-05-2022 CONSULT Normal [facility] CT HIP LEFT WO IV CONTRASTon 06-05-2022 CT HIP LEFT WO IV CONTRAST Normal [facility] PROTIME-INRon 06-05-2022 INR IN PPP BY COAGULATION ASSAY 1.10 Normal 0.90-1.10 [facility] Comment on above: Result Comment: ACCC P RECOMMENDED INR FOR WARFARIN THERAPY CONDITION INRPROPHYLAXIS OF VENOUS THROMBOSIS 2-3(HIGH-RISK SURGERY)TREATMENT OF VENOUS THROMBOSIS 2-3TREATMENT OF PULMONARY EMBOLISM 2-3PREVENTION OF SYSTEMIC EMBOLISM: 2-3 ACUTE MYOCARDIAL INFARCTION TISSUE HEART VALVES VALVULAR HEART DISEASE ATRIAL FIBRILLATION RECURRENT SYSTEMIC EMBOLISMMECHANICAL HEART VALVE 2.5-3.5 FROM: ORAL ANTICOAGULANTS. MECHANISM OF ACTION, CLINICAL EFFECTIVENESS, AND OPTIMAL THERAPEUTIC RANGE. CHEST 1995;108:231S-246S. Performed By: #### L [id number] ####[facility] [employer])[address] [place] [address] PROTHROMBIN TIME (PT) IN PPP BY COAGULATION ASSAY 14.2 Seconds Normal 12.3-14.8 [facility] Comment on above: Performed By: #### L [id number] ####[facility] [employer])[address] [place] [address] SEDIMENTATION RATEon 023 SEDIMENTATION RATE, ERYTHROCYTE 110 mm/hr High <=20 [facility] Comment on above: Performed By: #### L [id number] ####[facility] ([facility])[address] [place] [address] ANESon 06-04-2022 ANES Normal [facility] CONSULTon 06-04-2022 CONSULT Normal [facility] HPon 06-04-2022 HP Normal [facility] BODY FLUID CULTUREon 022 Ampicillin [Susc] 1 ug/ml Susceptible [facility] Comment on above: Order Comment: Futur e orders for a left hip intraarticular aspiration (to be done under image guidance) that is scheduled for 05/21/22 Performed By: #### L [id number] ####[facility] (BEAKER)[address] [facility] [address] Vancomycin [Susc] 1 ug/ml Susceptible [facility] Comment on above: Order Comment: Futur e orders for a left hip intraarticular aspiration (to be done under image guidance) that is scheduled for 05/21/22 Performed By: #### L [id number] ####[facility] (BEAKER)[address] [place] [address] FL GUIDED ASPIRATION OR INJE CTION LARGE JOINT LEFTon 05-21-2022 FL GUIDED ASPIRATION OR INJECTION LARGE JOINT LEFT Normal [facility] Operative Reporton Operative Report MR#: [id number] S [facility] Pt. Name: Jessica Gonzalez Room #: 0C Discharge 01/21/2022 Date: Birthdate: 1945 OPERATIVE REPORT DATE OF SURGERY: 01/21/2022 SURGEON: New Quiñones MD PREOPERATIVE DIAGNOSIS: Dehiscence left hip open wound, 8 x 4 cm in size. POSTOPERATIVE DIAGNOSIS: Dehiscence left hip open wound, 8 x 4 cm in size. PROCEDURE: 1. Debridement of skin and subcutaneous tissue totaling 5 x 4 cm in size. 2. Delayed closure, open wound, left hip, 9 cm. ASSISTANTS: YRN Akins. INDICATIONS: This patient is a 76-year-old woman, who had multiple medical problems in the past. She had a left hip arthroplasty in 2017. This was followed by recent 3 months ago exchange of the hardware for malfunction. Following this, the patient developed infection of the left hip show that there was significant drainage and a large open wound on the tissue that required initially replacement of the hardware with a spacer by Orthopedics and followed with the fasciocutaneous flap closure of the open wound. The patient initially made uneventful recovery. She has couple of small areas of edge necrosis. Unclear the depth of size approximately 2 x 1 and 1 x 1 cm in size. However, overall made uneventful recovery and tissue recovered especially superiorly where the origin of the flap was made. The patient had after hxk-ekw-p-half weeks partial removal of the sutures and within 4 to 5 days after removal of the suture, dehiscence was identified with significant drainage of the fluid. The patient came to the outpatient clinic where the dehiscence identified. The edges of the tissue that dehisced needed necrotic nor have any signs of ischemia nor there is any sign of infection or inflammation of the surrounding tissue and just no granulations and no healing of the tissue. Considering the findings and high risk of reinfection, recommendation is to proceed with debridement and closure. This was discussed with the patient. The patient agreed, arrangements made. The patient was seen in the preoperative area. Consent signed and procedure and risks discussed once again. PROCEDURE IN DETAIL: The patient was taken to the operating room, positioned supine on the table. General endotracheal anesthesia introduced. The patient positioned in the slack right decubitus position with beanbag support. Area of the hip was prepped and draped in usual sterile fashion. Time-out was called, the patient, site of surgery, plans for surgery properly identified. No concerns expressed by the surgical team. On evaluation, the patient has a fasciocutaneous flap approximately 25 x 12 cm in size total with distal-most portion of the flap still with sutures and couple areas of small edge necrosis. Decision was made to proceed with excision of these areas for evaluation of the depth of involvement and possible repair and the wound itself is approximately 8 x 4 cm in size, located on the posterior superior aspect of the flap with no necrosis, no signs of infection or inflammation, just a widely opened area. The base of the tissue appears to be viable with no necrosis either. At this point, the procedure started with conservative debridement approximately 2 mm refreshening of the edges of decubitus site followed with excision of the edge necrosis in 2 separate areas, excising approximately 2 x 1 cm of the edge, on both sides necrosis was only superficial with deeper tissue providing good capillary bleeding and appears normal and viable. At this point, the patient has 3 small openings with some undermining over the hip area still present. The [facility] manager was used to roughen the surface over the hip where the area was still deemed viable. The drain was placed and following irrigation of pulse lavage with 3 L of warm normal saline, the cleansing additionally with peroxide and Betadine. Closure performed. The edge necrotic areas excised and closed, totaling approximately 5 x 4 cm in size of excision and closure performed with vertical mattress Prolene #1 sutures and running 2-0 Prolene completing the closure. Attention turned to the large wound of dehiscence and delayed closure performed with internal [id number] vertical mattress bolstering sutures with the addition of 2-0 Prolene to complete the cutaneous closure. Closure achieved without significant difficulties. Copious irrigation, cleansing of the surface, application of the Xeroform and bulky soft dressing followed. Lele #15 drain is secured to the skin and connected to the bulbs and appropriate dressing applied. The patient tolerated the procedure well. COMPLICATIONS: None. ESTIMATED BLOOD LOSS: Less than 20 cc. The patient was awakened, extubated on the table and with a stable condition returned to the recovery room. Electronically Signed by: New Quiñones MD 02/13/2022 05:15 P (more content not included)... Normal [facility] POC GLUCOSE LABon 01-21-2022 Glucose [Mass/Vol] 89 mg/dL Normal 70-100 [facility] Comment on above: Performed By: #### 8 [id number] ####[place] [id number] POC SARS COV2 IDon 2 SARS-CoV-2 (COVID-19) RNA VITO+probe Ql (Unsp spec) Negative Normal NEGATIVE [facility] Comment on above: Result Comment: ID N OW COVID-19 assay performed on the ID NOW Instrument is a rapid molecular in vitro diagnostic test utilizing an isothermal nucleic acid amplification technology intended for the qualitative detection of nucleic acid from the SARS-CoV-2 virus in direct anterior nasal (nasal), nasopharyngeal or throat swabs from individuals who are suspected of COVID-19 by their healthcare provider within the first seven days of the onset of symptoms. Testing is limited to laboratories certified under the Clinical Laboratory Improvement Amendments of 1988 (CLIA), 42 U.S.C. ???263a,that meet the requirements to perform high, moderate, or waived complexity tests. The ID NOW COVID-19 assay is also authorized for use at the Point of Care (POC), i.e., in patient care settings operating under a CLIA Certificate of Waiver, Certificate of Compliance, or Certificate of Accreditation. Performed By: #### 3 1921 ####[facility] [facility].[address] BASIC METABOLIC PANELon 08- Calcium [Mass/Vol] 8.1 mg/dL Low 8.6-10.3 [facility] Comment on above: Order Comment: No: D o not add to previous drawNurse draw per rn fitz Performed By: #### 0 0071 ####[facility] [place] [address], [facility] Chloride [Moles/Vol] 107 mmol/L Normal 98-107 [facility] Comment on above: Order Comment: No: D o not add to previous drawNurse draw per rn fitz Performed By: #### 0 0071 ####[facility] [place] [address], [facility] CO2 [Moles/Vol] 28 mmol/L Normal 21-31 [facility] Comment on above: Order Comment: No: D o not add to previous drawNurse draw per rn fitz Performed By: #### 0 0071 ####[facility] [place] [address], [facility] Creatinine [Mass/Vol] 1.33 mg/dL High 0.60-1.20 [facility] Comment on above: Order Comment: No: D o not add to previous drawNurse draw per rn fitz Performed By: #### 0 0071 ####[facility] [place] [address], [facility] EGFR 41 ml/min/1.73sq m Abnormal >60 [facility] Comment on above: Order Comment: No: D o not add to previous drawNurse draw per rn fitz Result Comment: [facility]'s estimated glomerular filtration rate (eGFR) will no longer include consideration of race in its calculation. The National Kidney Foundation's eGFR Task Force developed new recommendations for the estimation of the glomerular filtration rate in the [place] They recommend immediate implementation of the new equation refit without the race variable in all laboratories because the calculation does not include race. In addition to not including race in the calculation and reporting, it included diversity in its development, and has acceptable performance characteristics and potential consequences that do not disproportionately affect any one group of individuals. Performed By: #### 0 0071 ####[facility] [place] [address], [facility] Glucose [Mass/Vol] 88 mg/dL Normal 70-100 [facility] Comment on above: Order Comment: No: D o not add to previous drawNurse draw per rn fitz Performed By: #### 0 0071 ####[facility] [place] [address], [facility] Potassium [Moles/Vol] 3.4 mmol/L Low 3.5-5.1 [facility] Comment on above: Order Comment: No: D o not add to previous drawNurse draw per rn fitz Performed By: #### 0 0071 ####[facility] [facility] [place] [address], [facility] Sodium [Moles/Vol] 141 mmol/L Normal 136-145 [facility] Comment on above: Order Comment: No: D o not add to previous drawNurse draw per rn fitz Performed By: #### 0 0071 ####[facility] [place] [address], [facility] Urea nitrogen [Mass/Vol] 20 mg/dL Normal 7-25 [facility] Comment on above: Order Comment: No: D o not add to previous drawNurse draw per rn fitz Performed By: #### 0 0071 ####[facility] [facility].[address] BASIC METABOLIC PANELon 08- Calcium [Mass/Vol] 8.0 mg/dL Low 8.6-10.3 [facility] Comment on above: Order Comment: No: D o not add to previous draw Performed By: #### 3 0953, 63859, 85598 ####[facility] [facility] [place] [address], [facility] Chloride [Moles/Vol] 108 mmol/L High 98-107 [facility] Comment on above: Order Comment: No: D o not add to previous draw Performed By: #### 3 0953, 17447, 15228 ####[facility] [place] [address], [facility] CO2 [Moles/Vol] 24 mmol/L Normal 21-31 [facility] Comment on above: Order Comment: No: D o not add to previous draw Performed By: #### 3 0953, 49120, 46197 ####[facility] [facility].[address] Creatinine [Mass/Vol] 1.29 mg/dL High 0.60-1.20 [facility] Comment on above: Order Comment: No: D o not add to previous draw Performed By: #### 3 0953, 65615, [address]2848 ####[place] [address] [facility].[address] EGFR 43 ml/min/1.73sq m Abnormal >60 [facility] Comment on above: Order Comment: No: D o not add to previous draw Result Comment: [facility]'s estimated glomerular filtration rate (eGFR) will no longer include consideration of race in its calculation. The National Kidney Foundation's eGFR Task Force developed new recommendations for the estimation of the glomerular filtration rate in the [place] They recommend immediate implementation of the new equation refit without the race variable in all laboratories because the calculation does not include race. In addition to not including race in the calculation and reporting, it included diversity in its development, and has acceptable performance characteristics and potential consequences that do not disproportionately affect any one group of individuals. Performed By: #### 3 0953, 69968, 12603 ####[facility] [place] [address], [facility] Glucose [Mass/Vol] 81 mg/dL Normal 70-100 [facility] Comment on above: Order Comment: No: D o not add to previous draw Performed By: #### 3 0953, 98796, 70232 ####[facility] [id number], [facility] Potassium [Moles/Vol] 3.5 mmol/L Normal 3.5-5.1 [facility] Comment on above: Order Comment: No: D o not add to previous draw Performed By: #### 3 53, 25881, 94974 ####[facility] [place] [address], [facility] Sodium [Moles/Vol] 140 mmol/L Normal 136-145 [facility] Comment on above: Order Comment: No: D o not add to previous draw Performed By: #### 3 53, 52421, 69611 ####[facility] [place] [address], [facility] Urea nitrogen [Mass/Vol] 25 mg/dL Normal 7-25 [facility] Comment on above: Order Comment: No: D o not add to previous draw Performed By: #### 3 53, 09521, 67563 ####[facility] [id number], [facility] CBC COMPLETE BLOOD COUNTon 0 - Erythrocyte distribution width (RBC) [Ratio] 21.2 % High 11.5-15.0 [facility] Comment on above: Order Comment: No: D o not add to previous draw Performed By: #### 5 0608 ####[facility] [address] Hematocrit (Bld) [Volume fraction] 34.2 % Low 36.0-45.0 [facility] Comment on above: Order Comment: No: D o not add to previous draw Performed By: #### 5 0608 ####[facility] Hemoglobin (Bld) [Mass/Vol] 10.9 g/dL Low 12.0-15.0 [facility] Comment on above: Order Comment: No: D o not add to previous draw Performed By: #### 5 0608 ####[address] MCH (RBC) [Entitic mass] 28.2 pg Normal 27.0-33.0 [facility] Comment on above: Order Comment: No: D o not add to previous draw Performed By: #### 5 0608 ####[facility] MCHC (RBC) [Mass/Vol] 31.9 g/dL Low 32.0-35.0 [facility] Comment on above: Order Comment: No: D o not add to previous draw Performed By: #### 5 0608 ####[address] MCV (RBC) [Entitic vol] 88.6 fL Normal 82.0-98.0 [facility] Comment on above: Order Comment: No: D o not add to previous draw Performed By: #### 5 0608 ####[facility] Nucleated RBC/100 WBC (Bld) [Ratio] 0 % Normal 0-0 [facility] Comment on above: Order Comment: No: D o not add to previous draw Performed By: #### 5 0608 ####[place] [id number], [place] PLAT CNT 361 10*3/uL Normal 150-400 [facility] Comment on above: Order Comment: No: D o not add to previous draw Performed By: #### 5 0608 ####[facility] RBC (Bld) [#/Vol] 3.86 10*6/uL Normal 3.80-5.00 [facility] Comment on above: Order Comment: No: D o not add to previous draw Performed By: #### 5 0608 ####[facility]3000 [facility].[address] WBC (Bld) [#/Vol] 10.68 10*3/uL High 4.00-10.60 [facility] Comment on above: Order Comment: No: D o not add to previous draw Performed By: #### 5 0608 ####[facility]3000 [facility] CPKon 01-04-2022 CK [Catalytic activity/Vol] 28 U/L Low 30-223 [facility] Comment on above: Performed By: #### 3 0953, [id number], [id number] ####[facility]3000 [facility].[address] Operative Reporton 2 Operative Report MR#: [id number] [facility] Pt. Name: Jessica Gonzalez Room #: 5AB [id number] Discharge Date: Birthdate: 1945 OPERATIVE REPORT DATE OF SURGERY: 01/02/2022 SURGEON: New Quiñones MD PREOPERATIVE DIAGNOSES: Status post left hip replacement, infection artificial hip, removal of the hardware and placement of the spacer by the Ortho, need for definitive closure, open wound of left hip 10 x 9 cm. POSTOPERATIVE DIAGNOSES: Status post left hip replacement, infection artificial hip, removal of the hardware and placement of the spacer by the Ortho, need for definitive closure, open wound of left hip 10 x 9 cm. PROCEDURES: 1. Sharp Debridement of open wound of the left hip, 10 x 9 cm. 2. Fasciocutaneous flap closure of the left hip wound. ASSISTANTS: 1. Mann, PGY-4. 2. YRN Akins. INDICATIONS: This patient is a 76-year-old female with multiple medical problems. She had initially left hip arthroplasty almost 4 years ago. 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 Previously, she developed subluxation of her hardware and required revision that was performed 2 months ago. Since then, the patient had open wound of the left hip, this was associated with necrosis of the tissue and initially, the patient had debridement that unfortunately revealed 4-5 cm opening over the prosthetic hardware of the left hip. This was extensively debrided, VAC placed and following additional evaluation by Orthopedics, removal of the hardware and placement of the spacer with antibiotic-impregnated cement was made. The capsule was closed and the patient had VAC placement; however, the wound of the hip over 10 x 9 cm in size remained. At this point, recommendation to the patient discussed about possible debridement and attempt of closure of the wound. Risks of bleeding, infection, need for additional procedures, poor scarring and healing extensively discussed, risk of not healing and progression of infection discussed with the patient and she indicates understanding and agreement. The patient has multiple medical problems, ill looking and anemic. She was transfused preoperatively blood and antibiotics were given on the floor. PROCEDURE IN DETAIL: The patient was taken to the operating room, positioned supine on the table. General endotracheal anesthesia introduced. The patient positioned on the cortes bag with the right decubitus position, secured soft pitting over the prominent tissue points. The area of the left hip prepped and draped with Hibiclens and appropriate draping applied. A time-out was called. The patient planned for surgery, site of surgery properly identified. No concerns expressed by the surgical team. On initial evaluation, the patient has open wound over 10 x 9 cm in size. There is a recent closure superiorly along the pre-existing scar of approximately 5 cm that was closed by Orthopedics and capsule, it was previously opened. At this point, appears to be closed with multiple braided sutures present in the wound. Laterally, a small amount of fibrin identified and edges of the wound callus and rounded. Initially, the edges were excised with 3-5 mm edges to make fresh and appropriate bleeding edges to remove the callus tissue. Additionally, tangential excisions on the surface and removal of small amount of fibrin performed. Meticulous hemostasis maintained using Bovie cautery. Copious irrigation, cleansing with peroxide and Betadine performed. At this point, attention turned to the flap and on evaluation, the patient has posterior tissue over the gluteal side that is significantly deflated and has laxity considering almost mal-nourished condition of the patient and superiorly along the extension of the upper hip and towards the iliac crest, laxity of the tissue in both areas sufficient; however, considering possible flexion and more tension from the posterior side, decision was made to proceed with the flap superiorly anteriorly based. At this point, marking was performed and extension excision to the practically extending towards the anterior-superior iliac spine and curving anteriorly was made and elevated fasciocutaneous flap was advancing towards the wound. Significant undermining provided on all areas subfascially and the flap was advanced and inset with #0 Vicryl and securing the fascia over the capsule of the closed joint. The advanced tissue appears to be viable with good perfusion. Further closure required bolstering sutures as internal [id number] vertical mattress sutures were positioned approximately 2 cm apart throughout the flap providing support and minimizing tension on the skin edges themselves considering high risk of necrosis for the patient. The closure achieved and running 3-0 Prolene completed the closure there. The patient tolerated the procedure well. Com (more content not included)... Normal [facility] VANCOMYCIN TIMEDon 2 VANCOMYCIN TIMED 21.0 mcg/mL Normal [facility] Comment on above: Performed By: #### 3 0934, [id number], [id number] ####[facility] BASIC METABOLIC PANELon 12-24 Calcium [Mass/Vol] 7.7 mg/dL Low 8.6-10.3 [facility] Comment on above: Order Comment: No: D o not add to previous draw Performed By: #### 3 0953, 62957 ####[facility] Chloride [Moles/Vol] 107 mmol/L Normal 98-107 [facility] Comment on above: Order Comment: No: D o not add to previous draw Performed By: #### 3 952, 34524 ####[facility]3000 [place] [address], [facility] CO2 [Moles/Vol] 26 mmol/L Normal 21-31 [facility] Comment on above: Order Comment: No: D o not add to previous draw Performed By: #### 3 952, 61951 ####[facility]3000 [place] [address], [facility] Creatinine [Mass/Vol] 1.42 mg/dL High 0.60-1.20 [facility] Comment on above: Order Comment: No: D o not add to previous draw Performed By: #### 3 952, 46975 ####[place] [address] [facility].[address] EGFR 38 ml/min/1.73sq m Abnormal >60 [facility] Comment on above: Order Comment: No: D o not add to previous draw Result Comment: [facility]'s estimated glomerular filtration rate (eGFR) will no longer include consideration of race in its calculation. The National Kidney Foundation's eGFR Task Force developed new recommendations for the estimation of the glomerular filtration rate in the [place] They recommend immediate implementation of the new equation refit without the race variable in all laboratories because the calculation does not include race. In addition to not including race in the calculation and reporting, it included diversity in its development, and has acceptable performance characteristics and potential consequences that do not disproportionately affect any one group of individuals. Performed By: #### 3 53, 37415 ####[facility]3000 [place] [address], [facility] Glucose [Mass/Vol] 80 mg/dL Normal 70-100 [facility] Comment on above: Order Comment: No: D o not add to previous draw Performed By: #### 3 952, 13023 ####[facility] Potassium [Moles/Vol] 3.2 mmol/L Low 3.5-5.1 [facility] Comment on above: Order Comment: No: D o not add to previous draw Performed By: #### 3 952, 35438 ####[facility]3000 [facility].[address] Sodium [Moles/Vol] 140 mmol/L Normal 136-145 [facility] Comment on above: Order Comment: No: D o not add to previous draw Performed By: #### 3 952, 35718 ####[place] [address] [address] Urea nitrogen [Mass/Vol] 27 mg/dL High 7-25 [facility] Comment on above: Order Comment: No: D o not add to previous draw Performed By: #### 3 952, 45829 ####[address] CBC COMPLETE BLOOD COUNTon 0 - Erythrocyte distribution width (RBC) [Ratio] 21.2 % High 11.5-15.0 [facility] Comment on above: Order Comment: No: D o not add to previous draw Performed By: #### 5 0608 ####[address] Hematocrit (Bld) [Volume fraction] 31.8 % Low 36.0-45.0 [facility] Comment on above: Order Comment: No: D o not add to previous draw Performed By: #### 5 0608 ####[address] Hemoglobin (Bld) [Mass/Vol] 10.5 g/dL Low 12.0-15.0 [facility] Comment on above: Order Comment: No: D o not add to previous draw Performed By: #### 5 0608 ####[facility]3000 [facility].[address] MCH (RBC) [Entitic mass] 28.5 pg Normal 27.0-33.0 [facility] Comment on above: Order Comment: No: D o not add to previous draw Performed By: #### 5 0608 ####[facility]3000 [facility].[address] MCHC (RBC) [Mass/Vol] 33.0 g/dL Normal 32.0-35.0 [facility] Comment on above: Order Comment: No: D o not add to previous draw Performed By: #### 5 0608 ####[facility] MCV (RBC) [Entitic vol] 86.2 fL Normal 82.0-98.0 [facility] Comment on above: Order Comment: No: D o not add to previous draw Performed By: #### 5 0608 ####[facility] Nucleated RBC/100 WBC (Bld) [Ratio] 0 % Normal 0-0 [facility] Comment on above: Order Comment: No: D o not add to previous draw Performed By: #### 5 0608 ####[facility]3000 [place] [address], [facility] PLAT CNT 317 10*3/uL Normal 150-400 [facility] Comment on above: Order Comment: No: D o not add to previous draw Performed By: #### 5 0608 ####[facility] [place] [address], [facility] RBC (Bld) [#/Vol] 3.69 10*6/uL Low 3.80-5.00 [facility] Comment on above: Order Comment: No: D o not add to previous draw Performed By: #### 5 0608 ####[facility] [place] [address], [facility] WBC (Bld) [#/Vol] 11.69 10*3/uL High 4.00-10.60 [facility] Comment on above: Order Comment: No: D o not add to previous draw Performed By: #### 5 0608 ####[facility] [place] [address], [facility] VANCOMYCIN TIMEDon VANCOMYCIN TIMED 26.7 mcg/mL Normal [facility] Comment on above: Performed By: #### 3 0953, 78159 ####[facility]3000 [facility] [place] [address], [facility] BASIC METABOLIC PANELon 12-24 Calcium [Mass/Vol] 7.7 mg/dL Low 8.6-10.3 [facility] Comment on above: Order Comment: No: D o not add to previous draw Performed By: #### 0 0071 ####[facility] [place] [address], [facility] Chloride [Moles/Vol] 106 mmol/L Normal 98-107 [facility] Comment on above: Order Comment: No: D o not add to previous draw Performed By: #### 0 0071 ####[facility]3000 [facility] [place] [address], [facility] CO2 [Moles/Vol] 26 mmol/L Normal 21-31 [facility] Comment on above: Order Comment: No: D o not add to previous draw Performed By: #### 0 0071 ####[facility] [place] [address], [facility] Creatinine [Mass/Vol] 1.50 mg/dL High 0.60-1.20 [facility] Comment on above: Order Comment: No: D o not add to previous draw Performed By: #### 0 0071 ####[facility]3000 [place] [address], [facility] EGFR 36 ml/min/1.73sq m Abnormal >60 [facility] Comment on above: Order Comment: No: D o not add to previous draw Result Comment: [facility]'s estimated glomerular filtration rate (eGFR) will no longer include consideration of race in its calculation. The National Kidney Foundation's eGFR Task Force developed new recommendations for the estimation of the glomerular filtration rate in the [place] They recommend immediate implementation of the new equation refit without the race variable in all laboratories because the calculation does not include race. In addition to not including race in the calculation and reporting, it included diversity in its development, and has acceptable performance characteristics and potential consequences that do not disproportionately affect any one group of individuals. Performed By: #### 0 0071 ####[facility] [place] [address], [facility] Glucose [Mass/Vol] 82 mg/dL Normal 70-100 [facility] Comment on above: Order Comment: No: D o not add to previous draw Performed By: #### 0 0071 ####[facility] [place] [address], [facility] Potassium [Moles/Vol] 3.7 mmol/L Normal 3.5-5.1 [facility] Comment on above: Order Comment: No: D o not add to previous draw Performed By: #### 0 0071 ####[facility]3000 [place] [id number], [facility] Sodium [Moles/Vol] 139 mmol/L Normal 136-145 [facility] Comment on above: Order Comment: No: D o not add to previous draw Performed By: #### 0 0071 ####[facility] [place] [address], [facility] Urea nitrogen [Mass/Vol] 26 mg/dL High 7-25 [facility] Comment on above: Order Comment: No: D o not add to previous draw Performed By: #### 0 0071 ####[facility] CBC COMPLETE BLOOD COUNTon 0 01-02-2022 Erythrocyte distribution width (RBC) [Ratio] 19.4 % High 11.5-15.0 [facility] Comment on above: Order Comment: No: D o not add to previous draw Performed By: #### 5 0608 ####[address] Hematocrit (Bld) [Volume fraction] 23.8 % Low 36.0-45.0 [facility] Comment on above: Order Comment: No: D o not add to previous draw Performed By: #### 5 0608 ####[address] Hemoglobin (Bld) [Mass/Vol] 7.4 g/dL Low 12.0-15.0 [facility] Comment on above: Order Comment: No: D o not add to previous draw Performed By: #### 5 0608 ####[address] MCH (RBC) [Entitic mass] 29.4 pg Normal 27.0-33.0 [facility] Comment on above: Order Comment: No: D o not add to previous draw Performed By: #### 5 0608 ####[address] MCHC (RBC) [Mass/Vol] 31.1 g/dL Low 32.0-35.0 [facility] Comment on above: Order Comment: No: D o not add to previous draw Performed By: #### 5 0608 ####[address] MCV (RBC) [Entitic vol] 94.4 fL Normal 82.0-98.0 [facility] Comment on above: Order Comment: No: D o not add to previous draw Performed By: #### 5 0608 ####[facility]3000 [place] [address], [facility] Nucleated RBC/100 WBC (Bld) [Ratio] 0 % Normal 0-0 [facility] Comment on above: Order Comment: No: D o not add to previous draw Performed By: #### 5 0608 ####[facility]3000 [place] [address], [facility] PLAT CNT 383 10*3/uL Normal 150-400 [facility] Comment on above: Order Comment: No: D o not add to previous draw Performed By: #### 5 0608 ####[place] [id number] [place] [address], [facility] RBC (Bld) [#/Vol] 2.52 10*6/uL Low 3.80-5.00 [facility] Comment on above: Order Comment: No: D o not add to previous draw Performed By: #### 5 0608 ####[facility]3000 [place] [address], [facility] WBC (Bld) [#/Vol] 10.81 10*3/uL High 4.00-10.60 [facility] Comment on above: Order Comment: No: D o not add to previous draw Performed By: #### 5 0608 ####[facility]3000 [facility].[address] CRP HIGH SENSITIVITYon 01-02 HIGH SENSITIVITY CRP 85.20 mg/L Normal [facility] Comment on above: Order Comment: Yes: Add to Previous draw if able Result Comment: HIGH SENSITIVITY CRP (hs_CRP) REFERENCE RANGES Less than 1.0 mg/L: lowest tertile, lowest risk 1.0-3.0 mg/L: middle tertile, average risk Greater than 3.0 mg/L: highest tertile, highest risk Performed By: #### 8 4147 ####[facility]3000 [place] [address], [facility] POC GLUCOSE LABon 01-02-2022 Glucose [Mass/Vol] 86 mg/dL Normal 70-100 [facility] Comment on above: Performed By: #### 8 5499 ####[facility] [place] [address], [facility] PORTABLE CHEST 1 VIEWon 12-24 PORTABLE CHEST 1 VIEW [facility] Department of Radiology [address] [place] [id number] Patient Name: JESSICA GONZALEZ : 1945 Sex: F Age: Race: White Pt. Location: [address] [place] [address] Patient Status: I Ordered Date: 01/02/2022 12:00:00 PM Completed Date: 01/02/2022 03:53 PM Requesting Provider: DEVENDRA PRITCHARD Attending Provider: DEVENDRA PRITCHARD Report Copy To: Signs & Symptoms: Shortness of Breath History: Comments: COPD Exam: PORTABLE CHEST 1 VIEW PORTABLE CHEST 1 VIEW 01/02/2022 3:53 PM CLINICAL INDICATIONS: Shortness of Breath TECHNOLOGIST COMMENTS: Shortness of Breath QUESTION FOR THE RADIOLOGIST: COPD PROTOCOL: AP(PA) view was obtained. COMPARISON: CXR, 12/26/2021 FINDINGS: Surgical fixation of the left shoulder as before. Stable cardiomediastinal silhouette. No effusions and atelectasis. No definitive focal consolidation or pneumothorax. IMPRESSION: New small effusions and atelectasis. Electronically signed: UMM HASSAN. Transcribed by: [email or web address], User Resident: Electronically Signed by: UMM HASSAN @ 01/02/2022 04:23 PM Normal [facility] Comment on above: Order Comment: COPD VANCOMYCIN TIMEDon 2 VANCOMYCIN TIMED 30.7 mcg/mL Normal [facility] Comment on above: Performed By: #### 3 0953 ####[facility] Operative Reporton 2 Operative Report MR#: [id number] I [facility] Pt. Name: Jessica Gonzalez Room #: 5AB [id number] Discharge Date: Birthdate: 1945 OPERATIVE REPORT DATE OF SURGERY: 12/31/2021 SURGEON: Kevin Varela M.D. ASSISTANTS: 1. Messi Perry 2. YRN Cesar. ANESTHESIA: General anesthesia. ESTIMATED BLOOD LOSS: 500 mL. FLUIDS: Per Anesthesia note. COMPLICATIONS: None. SPECIMENS: Left hip routine culture sensitivity x3. 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 POSTOPERATIVE DIAGNOSIS: Left total hip arthroplasty periprosthetic infection. PROCEDURE: Left total hip arthroplasty, removal of prosthesis and insertion of antibiotic cement implant. COMPONENTS: 1. Biomet Echo stem, size 11 lateral offset. 2. Standard taper adapter. 3. 5 g of vancomycin, 2.4 g of tobramycin for cement patch. INDICATION FOR PROCEDURE: A 76-year-old female who had a left total hip arthroplasty revision here and has now necrosis of the wound. She was attempted to be treated by VAC coverage, but did not heal this effectively despite not going into the joint initially. She had debridement done last week and had the entrance into the joint itself. She now has a periprosthetic infection, and I discussed with her my recommendation for removal of prosthesis. OPERATIVE COURSE: The patient was brought to the operating room and placed supine on operating table. General anesthesia obtained. The patient was placed in a right lateral decubitus position. Appropriate padding was placed including axillary roll. Left lower extremity is prepped and draped sterilely. Time-out was completed. Preoperative antibiotics were already given. The incision was then extended proximally with the previous incision. I debrided soft tissue around the periphery of the wound. The soft tissue flaps were raised. Then incised the IT band. There was already a 5 cm round hole that went directly into the joint. The IT band was then split distally as well. I raised the soft tissue flap underneath this as well. Charnley retractor was placed for added exposure. The anterior third of the gluteus medius was redeveloped. I incised the soft tissue above and below out to allow for this to be mobilized. I also came around the trochanter region as well because this was bald. I then had reconstituted this and then inspected the joint itself. I had to go around the joint, remove some soft tissue around the periphery and sent for routine culture and sensitivity. I then removed the locking ring and then dislocated the femoral head. I then impacted the head off the taper. Once I did that, I then exposed the proximal femur. I went around it with the Steinmann pins, and then the altered drive. I then removed the stem itself. I had also removed some of the lateral bone as well. Once this was removed, I then sized to a size 17 Echo stem. I then exposed the acetabulum. Once exposed the acetabulum, I then drilled and placed a screw to remove the previously placed liner. I removed the previously placed 3 acetabular screws, and placed the liner trial into position. I then went around the explant with short and long blades, removed without difficulty. The wound was irrigated with crystalloid solution. I made the implants on the back table. I opened the 11 echo stem, and used the bone cement to round the stem itself. I then also made a head using a mold as well. I then placed the taper adapter into position as well. This was allowed to cure. I then placed the stem into head to open up the proximal femur with the reamer a little bit. Once I did that, it sat at the right level. I then cemented this in proximally into the femur, and then put the head on and cemented around it as well. I relocated the hip and stability was acceptable. The medius and minimus soft tissue and scar was closed itself with #2 Quill suture. This covered the joint itself. I then closed the IT band itself with interrupted [id number] suture. The remainder of the proximal incision was closed in layered fashion. The open portion was not able to be closed, and wound VAC was applied for total about 12 x 8 cm. At the conclusion of the case, all sponge and needle counts correct. I was present for the critical portions of this case. Electronically Signed by: Kevin Varela M.D. 01/10/2022 09:40 A Kevin Varela M.D. Date Dict: 12/31/2021/02:37 P/Kevin Varela M.D. Date Trans: 12/31/2021 11:02 P/bladimir [id number] cc: Stuart Zamora D.O. [address] [place] [id number] Normal [facility] *ANAEROBIC CULTUREon 022 *ANAEROBIC CULTURE Clinical Report: (D) Specimen/Source: TISSUE/INTRAOP SPEC Collected: 12/31/2021 14:05 Status: Final Last Updated: 01/05/2022 09:58 (1) 3) LEFT HIP ANTERIOR SOFT TISSUE ISO (Final) No Anaerobes Isolated 5 Days Normal [facility] Comment on above: Order Comment: 3) LE FT HIP ANTERIOR SOFT TISSUE Performed By: #### 3 0312 ####[place] [id number] [address] *ANAEROBIC CULTURE Clinical Report: (D) Specimen/Source: TISSUE/INTRAOP SPEC Collected: 12/31/2021 14:05 Status: Final Last Updated: 01/05/2022 09:53 (1) 1) LEFT HIP SUPERIOR CAPSULE ISO (Final) No Anaerobes Isolated 5 Days Normal [facility] Comment on above: Order Comment: 1) LE FT HIP SUPERIOR CAPSULE Performed By: #### 3 0312 ####[facility] *ANAEROBIC CULTURE Clinical Report: (D) Specimen/Source: TISSUE/INTRAOP SPEC Collected: 12/31/2021 14:05 Status: Final Last Updated: 01/05/2022 09:58 (1) 2) LEFT HIP SYNOVIUM ISO (Final) No Anaerobes Isolated 5 Days Normal [facility] Comment on above: Order Comment: 2) LE FT HIP SYNOVIUM Performed By: #### 3 0312 ####[facility] *MRSA/MSSA DNA NASALon 12-31 *MRSA/MSSA DNA NASAL Clinical Report: (D ) Specimen: NASAL SWAB Collected: 12/31/2021 15:48 Status: Final Last Updated: 12/31/2021 21:18 (1) No collection time noted on specimen or requisition. The collection time recorded is the time of receipt in the lab. MSSA DNA (Final) Negative MRSA DNA (Final) Negative Normal [facility] Comment on above: Order Comment: No co llection time noted on specimen or requisition. The collection timerecorded is the time of receipt in the lab. Performed By: #### 3 1595 ####[facility] *TISSUE CULTUREon 12-31-2021 *TISSUE CULTURE Clinical Report: (D) Specimen/Source: TISSUE/INTRAOP SPEC Collected: 12/31/2021 14:05 Status: Final Last Updated: 01/03/2022 08:19 (1) 1) LEFT HIP SUPERIOR CAPSULE GRAM (Final) No Polys Seen No Bacteria Seen ISO (Final) Pseudomonas aeruginosa Light Growth For Susceptibility Results Please Refer to Multidrug-Resistant Organism Results called. Read back by Nohelia Howard RN (5AB) at 0817 on 01/03/2022 Result changed by MELY on 01/03/2022 08:19. The previous result was: ISO (Prelim) Pseudomonas aeruginosa Light Growth Normal [facility] Comment on above: Order Comment: 1) LE FT HIP SUPERIOR CAPSULE Performed By: #### 3 0338 ####[facility] *TISSUE CULTURE Clinical Report: (D) Specimen/Source: TISSUE/INTRAOP SPEC Collected: 12/31/2021 14:05 Status: Final Last Updated: 01/03/2022 08:17 (1) 3) LEFT HIP ANTERIOR SOFT TISSUE GRAM (Final) Many Polys No Bacteria Seen ISO (Final) Serratia marcescens Light Growth ISO (Final) Pseudomonas aeruginosa Light Growth Multidrug-Resistant Organism Results called. Read back by Nohelia Howard RN ([id number]) at 0817 on 01/03/2022 ISOLATE: ISOLATE: Serratia marcescens Pseudomonas aeruginosa JANICE (mcg/ml) AMP./SULBAC (AMS) 16/8 Resistant AMPICILLIN (AM) 16 Resistant AZTREONAM (AZM) <=2 Susceptible AZTREONAM (AZM) 16 Intermediate CEFAZOLIN (CZ) >16 Resistant CEFEPIME (FEP) 16 Resistant CEFTRIAXONE (SEISMOGRAPHER) <=1 Susceptible CIPROFLOXACIN (CIP) <=0.25 Susceptible <=0.25 Susceptible GENTAMICIN (GM) <=2 Susceptible <=2 Susceptible MEROPENEM (MEM) 1 Susceptible PIP/TAZO (TZP) <=4/4 Susceptible PIP/TAZO (TZP) >64/4 Resistant TOBRAMYCIN (TOB) <=2 Susceptible <=2 Susceptible Antibiotic Summary Grid: AMS AM AZM CZ FEP SEISMOGRAPHER CIP GM MEM TZP TOB Serratia marcescens R R S R S S S S S Pseudomonas I R S S S R S aeruginosa Normal [facility] Comment on above: Order Comment: 3) LE FT HIP ANTERIOR SOFT TISSUE Performed By: #### 3 0338 ####[facility] *TISSUE CULTURE Clinical Report: (D) Specimen/Source: TISSUE/INTRAOP SPEC Collected: 12/31/2021 14:05 Status: Final Last Updated: 01/03/2022 08:19 (1) 2) LEFT HIP SYNOVIUM GRAM (Final) Many Polys No Bacteria Seen ISO (Final) Pseudomonas aeruginosa Light Growth For Susceptibility Results Please Refer to Multidrug-Resistant Organism Results called. Read back by Nohelia Howard RN (5AB) at 0817 on 01/03/2022 Result changed by MELY on 01/03/2022 08:19. The previous result was: ISO (Prelim) Pseudomonas aeruginosa Light Growth Normal [facility] Comment on above: Order Comment: 2) LE FT HIP SYNOVIUM Performed By: #### 3 0338 ####[facility] PORTABLE HIP LEFT 1 OR 2 VWS WITH PELVISon 12-31-2021 PORTABLE HIP LEFT 1 OR 2 VWS WITH PELVIS [facility] Department of Radiology [address] [place] [phone] Patient Name: JESSICA GONZALEZ : 1945 Sex: F Age: Race: White Pt. Location: [id number] Patient Status: I Ordered Date: 12/31/2021 2:45:00 PM Completed Date: 12/31/2021 04:11 PM Requesting Provider: SHARLA PERRY Attending Provider: DEVENDRA PRITCHARD Report Copy To: Signs & Symptoms: Post OP History: Comments: Hardware Evaluation Exam: PORTABLE HIP LEFT 1 OR 2 VWS WITH PELVIS PORTABLE HIP LEFT 1 OR 2 VWS WITH PELVIS 12/31/2021 4:11 PM CLINICAL INDICATIONS: Post OP TECHNOLOGIST COMMENTS: post op Hardware Evaluation QUESTION FOR THE RADIOLOGIST: Hardware Evaluation PROTOCOL: AP(PA) and Lateral views were obtained. COMPARISON: None IMPRESSION: 1. Early postoperative changes revision left hip arthroplasty. Anatomic alignment. Expected soft tissue emphysema and apparent vacuum drainage device. 2. Vascular atherosclerosis. Advanced right hip osteoarthrosis. Electronically signed: [facility] HASSAN. Transcribed by: [email or web address], User Resident: Electronically Signed by: UMM HASSAN @ 12/31/2021 04:55 PM Normal [facility] Comment on above: Order Comment: Hardw are Evaluation RBC'S 2 UNITSon 12-31-2021 CROSSMATCH INTERP 1 COMP Normal [facility] Comment on above: Performed By: #### 8 6002 ####[facility] [place] [address], [facility] CROSSMATCH INTERP 2 COMP Normal [facility] Comment on above: Performed By: #### 8 6002 ####[facility] [facility].[address] PRODUCT CODE 1 E0336 Normal [facility] Comment on above: Performed By: #### 8 6002 ####[facility] [place] [address], [facility] PRODUCT CODE 2 E0336 Normal [facility] Comment on above: Performed By: #### 8 6002 ####[facility] [place] [address], [facility] PRODUCT STATUS 1 PT Normal [facility] Comment on above: Result Comment: Resu lt changed by IF on 01/02/2022 16:48. The previous value was XM. Result changed by IF on 01/03/2022 00:30. The previous value was IS. Performed By: #### 8 6002 ####[facility] [place] [address], [facility] PRODUCT STATUS 2 PT Normal [facility] Comment on above: Result Comment: Resu lt changed by IF on 01/02/2022 12:46. The previous value was XM. Result changed by IF on 01/03/2022 00:30. The previous value was IS. Performed By: #### 8 6002 ####[facility] [facility].[address] UNIT ABO 1 AB Normal [facility] Comment on above: Performed By: #### 8 6002 ####[facility] [facility].[address] UNIT ABO 2 AB Normal [facility] Comment on above: Performed By: #### 8 6002 ####[facility] [facility].[address] UNIT ID 1 [id number] Normal [facility] Comment on above: Performed By: #### 8 6002 ####[facility] [facility].[address] UNIT ID 2 [id number] Normal [facility] Comment on above: Performed By: #### 8 6002 ####[facility] [facility].[address] UNIT RH 1 Positive Normal [facility] Comment on above: Performed By: #### 8 6002 ####[facility] [facility].[address] UNIT RH 2 Positive Normal [facility] Comment on above: Performed By: #### 8 6002 ####[place] [id number] [facility].[address] BASIC METABOLIC PANELon 08-0 Calcium [Mass/Vol] 7.9 mg/dL Low 8.6-10.3 [facility] Comment on above: Order Comment: No: D o not add to previous drawDRAWN ABOVE PAUSED IV Performed By: #### 1 0070, [id number] ####[id number] [place] [address], [facility] Chloride [Moles/Vol] 106 mmol/L Normal 98-107 [facility] Comment on above: Order Comment: No: D o not add to previous drawDRAWN ABOVE PAUSED IV Performed By: #### 1 69, [id number] ####[facility] [facility] [place] [address], [facility] CO2 [Moles/Vol] 28 mmol/L Normal 21-31 [facility] Comment on above: Order Comment: No: D o not add to previous drawDRAWN ABOVE PAUSED IV Performed By: #### 1 69, [id number] ####[facility] [place] [address], [facility] Creatinine [Mass/Vol] 0.60 mg/dL Normal 0.60-1.20 [facility] Comment on above: Order Comment: No: D o not add to previous drawDRAWN ABOVE PAUSED IV Performed By: #### 1 69, 71208 ####[facility] [place] [address], [facility] GFR/1.73 sq M.predicted among non-blacks MDRD (S/P/Bld) [Vol rate/Area] mL/min/{1.73_m2} Normal >60 [facility] Comment on above: Order Comment: No: D o not add to previous drawDRAWN ABOVE PAUSED IV Result Comment: [facility]'s estimated glomerular filtration rate (eGFR) will no longer include consideration of race in its calculation. The [employer]'s eGFR Task Force developed new recommendations for the estimation of the glomerular filtration rate in the [place] They recommend immediate implementation of the new equation refit without the race variable in all laboratories because the calculation does not include race. In addition to not including race in the calculation and reporting, it included diversity in its development, and has acceptable performance characteristics and potential consequences that do not disproportionately affect any one group of individuals. Performed By: #### 1 69, 40396 ####[facility] [place] [address], [facility] Glucose [Mass/Vol] 107 mg/dL High 70-100 [facility] Comment on above: Order Comment: No: D o not add to previous drawDRAWN ABOVE PAUSED IV Performed By: #### 1 69, 31178 ####[facility] [place] [address], [facility] Potassium [Moles/Vol] 3.4 mmol/L Low 3.5-5.1 [facility] Comment on above: Order Comment: No: D o not add to previous drawDRAWN ABOVE PAUSED IV Performed By: #### 1 69, 22093 ####[facility] [place] [address], [facility] Sodium [Moles/Vol] 140 mmol/L Normal 136-145 [facility] Comment on above: Order Comment: No: D o not add to previous drawDRAWN ABOVE PAUSED IV Performed By: #### 1 69, 64276 ####[facility] [facility] [place] [address], [facility] Urea nitrogen [Mass/Vol] 17 mg/dL Normal 7-25 [facility] Comment on above: Order Comment: No: D o not add to previous drawDRAWN ABOVE PAUSED IV Performed By: #### 1 69, 46283 ####[facility] [facility] CBC COMPLETE BLOOD COUNTon 0 - Erythrocyte distribution width (RBC) [Ratio] 18.3 % High 11.5-15.0 [facility] Comment on above: Order Comment: No: D o not add to previous drawDRAWN ABOVE PAUSED IV Performed By: #### 5 0608 ####[facility] [place] [address], [facility] Hematocrit (Bld) [Volume fraction] 26.9 % Low 36.0-45.0 [facility] Comment on above: Order Comment: No: D o not add to previous drawDRAWN ABOVE PAUSED IV Performed By: #### 5 0608 ####[facility] Hemoglobin (Bld) [Mass/Vol] 8.2 g/dL Low 12.0-15.0 [facility] Comment on above: Order Comment: No: D o not add to previous drawDRAWN ABOVE PAUSED IV Performed By: #### 5 0608 ####[facility] MCH (RBC) [Entitic mass] 28.8 pg Normal 27.0-33.0 [facility] Comment on above: Order Comment: No: D o not add to previous drawDRAWN ABOVE PAUSED IV Performed By: #### 5 0608 ####[address] MCHC (RBC) [Mass/Vol] 30.5 g/dL Low 32.0-35.0 [facility] Comment on above: Order Comment: No: D o not add to previous drawDRAWN ABOVE PAUSED IV Performed By: #### 5 0608 ####[address] MCV (RBC) [Entitic vol] 94.4 fL Normal 82.0-98.0 [facility] Comment on above: Order Comment: No: D o not add to previous drawDRAWN ABOVE PAUSED IV Performed By: #### 5 0608 ####[address] Nucleated RBC/100 WBC (Bld) [Ratio] 1 % High 0-0 [facility] Comment on above: Order Comment: No: D o not add to previous drawDRAWN ABOVE PAUSED IV Performed By: #### 5 0608 ####[address] [place] [address], [facility] PLAT CNT 403 10*3/uL High 150-400 [facility] Comment on above: Order Comment: No: D o not add to previous drawDRAWN ABOVE PAUSED IV Performed By: #### 5 0608 ####[facility] [place] [address], [facility] RBC (Bld) [#/Vol] 2.85 10*6/uL Low 3.80-5.00 [facility] Comment on above: Order Comment: No: D o not add to previous drawDRAWN ABOVE PAUSED IV Performed By: #### 5 0608 ####[facility] [place] [address], [facility] WBC (Bld) [#/Vol] 6.38 10*3/uL Normal 4.00-10.60 [facility] Comment on above: Order Comment: No: D o not add to previous drawDRAWN ABOVE PAUSED IV Performed By: #### 5 0608 ####[facility] [place] [address], [facility] MAGNESIUM BLOODon 12-30-2021 Magnesium [Mass/Vol] 1.8 mg/dL Low 1.9-2.7 [facility] Comment on above: Order Comment: No: D o not add to previous drawDRAWN ABOVE PAUSED IV Performed By: #### 1 0070, 15025 ####[facility] [place] [address], [facility] RBC'S 2 UNITSon 12-30-2021 CROSSMATCH INTERP 1 COMP Normal [facility] Comment on above: Performed By: #### 8 6002 ####[facility] [place] [address], [facility] CROSSMATCH INTERP 2 COMP Normal [facility] Comment on above: Performed By: #### 8 6002 ####[facility] [facility].[place] [id number], [facility] PRODUCT CODE 1 E0336 Normal [facility] Comment on above: Performed By: #### 8 6002 ####[facility] [place] [address], [facility] PRODUCT CODE 2 E0336 Normal [facility] Comment on above: Performed By: #### 8 6002 ####[facility] [place] [address], [facility] PRODUCT STATUS 1 PT Normal [facility] Comment on above: Result Comment: Resu lt changed by IF on 12/31/2021 13:35. The previous value was XM. Result changed by IF on 12/31/2021 17:26. The previous value was IS. Result changed by IF on 01/02/2022 16:48. The previous value was XM. Result changed by IF on 01/03/2022 00:30. The previous value was IS. Performed By: #### 8 6002 ####[facility] [facility] [place] [address], [facility] PRODUCT STATUS 2 PT Normal [facility] Comment on above: Result Comment: Resu lt changed by IF on 12/31/2021 13:35. The previous value was XM. Result changed by IF on 01/01/2022 00:30. The previous value was IS. Performed By: #### 8 6002 ####[facility] [place] [address], [facility] UNIT ABO 1 AB Normal [facility] Comment on above: Performed By: #### 8 6002 ####[facility] [facility] [place] [address], [facility] UNIT ABO 2 AB Normal [facility] Comment on above: Performed By: #### 8 6002 ####[facility] [place] [address], [facility] UNIT ID 1 [id number] Normal [facility] Comment on above: Performed By: #### 8 6002 ####[facility] [place] [address], [facility] UNIT ID 2 [id number] Normal [facility] Comment on above: Performed By: #### 8 6002 ####[facility] [place] [address], [facility] UNIT RH 1 Positive Normal [facility] Comment on above: Performed By: #### 8 6002 ####[facility] [place] [address], [facility] UNIT RH 2 Positive Normal [facility] Comment on above: Performed By: #### 8 6002 ####[facility] [place] [address], [facility] TYPE AND SCREENon 12-30-2021 ABO INTERPRETATION AB Normal [facility] Comment on above: Performed By: #### 6 2586 ####[facility] [place] [address], [facility] RH INTERPRETATION Positive Normal [facility] Comment on above: Performed By: #### 6 2586 ####[facility] [place] [address], [facility] HEMATOCRITon 12-29-2021 Hematocrit (Bld) [Volume fraction] 26.1 % Low 36.0-45.0 [facility] Comment on above: Order Comment: No: D o not add to previous draw Performed By: #### 9 2096, 82886 ####[facility] [place] [address], [facility] HEMOGLOBINon 12-29-2021 Hemoglobin (Bld) [Mass/Vol] 7.7 g/dL Low 12.0-15.0 [facility] Comment on above: Order Comment: No: D o not add to previous draw Performed By: #### 9 2096, 18803 ####[facility] [place] [address], [facility] VANCOMYCIN TROUGHon 12-30-19 VANCOMYCIN TROU 16.5 mcg/mL Normal 5.0-20.0 [facility] Comment on above: Performed By: #### 0 2024 ####[facility] [place] [address], [facility] BASIC METABOLIC PANELon Calcium [Mass/Vol] 8.1 mg/dL Low 8.6-10.3 [facility] Comment on above: Order Comment: No: D o not add to previous draw Performed By: #### 0 1 ####[facility] [place] [address], [facility] Chloride [Moles/Vol] 112 mmol/L High 98-107 [facility] Comment on above: Order Comment: No: D o not add to previous draw Performed By: #### 0 1 ####[facility] [place] [address], [facility] CO2 [Moles/Vol] 25 mmol/L Normal 21-31 [facility] Comment on above: Order Comment: No: D o not add to previous draw Performed By: #### 0 1 ####[facility] [place] [address], [facility] Creatinine [Mass/Vol] 0.78 mg/dL Normal 0.60-1.20 [facility] Comment on above: Order Comment: No: D o not add to previous draw Performed By: #### 0 0071 ####[facility] [place] [address], [facility] GFR/1.73 sq M.predicted among non-blacks MDRD (S/P/Bld) [Vol rate/Area] mL/min/{1.73_m2} Normal >60 [facility] Comment on above: Order Comment: No: D o not add to previous draw Result Comment: [facility]'s estimated glomerular filtration rate (eGFR) will no longer include consideration of race in its calculation. The National Kid[employer]'s eGFR Task Force developed new recommendations for the estimation of the glomerular filtration rate in the [place] They recommend immediate implementation of the new equation refit without the race variable in all laboratories because the calculation does not include race. In addition to not including race in the calculation and reporting, it included diversity in its development, and has acceptable performance characteristics and potential consequences that do not disproportionately affect any one group of individuals. Performed By: #### 0 0071 ####[facility] [place] [address], [facility] Glucose [Mass/Vol] 80 mg/dL Normal 70-100 [facility] Comment on above: Order Comment: No: D o not add to previous draw Performed By: #### 0 0071 ####[facility] [place] [address], [facility] Potassium [Moles/Vol] 3.7 mmol/L Normal 3.5-5.1 [facility] Comment on above: Order Comment: No: D o not add to previous draw Performed By: #### 0 0071 ####[facility] [place] [address], [facility] Sodium [Moles/Vol] 142 mmol/L Normal 136-145 [facility] Comment on above: Order Comment: No: D o not add to previous draw Performed By: #### 0 0071 ####[facility] [place] [address], [facility] Urea nitrogen [Mass/Vol] 13 mg/dL Normal 7-25 [facility] Comment on above: Order Comment: No: D o not add to previous draw Performed By: #### 0 0071 ####[facility] [place] [address], [facility] CBC COMPLETE BLOOD COUNTon 0 8- Erythrocyte distribution width (RBC) [Ratio] 18.3 % High 11.5-15.0 [facility] Comment on above: Order Comment: No: D o not add to previous draw Performed By: #### 5 0608 ####[facility] Hematocrit (Bld) [Volume fraction] 24.6 % Low 36.0-45.0 [facility] Comment on above: Order Comment: No: D o not add to previous draw Performed By: #### 5 0608 ####[facility] [place] [address] Hemoglobin (Bld) [Mass/Vol] 7.4 g/dL Low 12.0-15.0 [facility] Comment on above: Order Comment: No: D o not add to previous draw Performed By: #### 5 0608 ####[address] MCH (RBC) [Entitic mass] 29.0 pg Normal 27.0-33.0 [facility] Comment on above: Order Comment: No: D o not add to previous draw Performed By: #### 5 0608 ####[address] MCHC (RBC) [Mass/Vol] 30.1 g/dL Low 32.0-35.0 [facility] Comment on above: Order Comment: No: D o not add to previous draw Performed By: #### 5 0608 ####[facility] [place] [address] MCV (RBC) [Entitic vol] 96.5 fL Normal 82.0-98.0 [facility] Comment on above: Order Comment: No: D o not add to previous draw Performed By: #### 5 0608 ####[address] Nucleated RBC/100 WBC (Bld) [Ratio] 0 % Normal 0-0 [facility] Comment on above: Order Comment: No: D o not add to previous draw Performed By: #### 5 0608 ####[facility]3000 [place] [address], [facility] PLAT CNT 336 10*3/uL Normal 150-400 [facility] Comment on above: Order Comment: No: D o not add to previous draw Performed By: #### 5 0608 ####[facility] [place] [address], [facility] RBC (Bld) [#/Vol] 2.55 10*6/uL Low 3.80-5.00 [facility] Comment on above: Order Comment: No: D o not add to previous draw Performed By: #### 5 0608 ####[facility] [place] [address], [facility] WBC (Bld) [#/Vol] 9.31 10*3/uL Normal 4.00-10.60 [facility] Comment on above: Order Comment: No: D o not add to previous draw Performed By: #### 5 0608 ####[facility] HIP LEFT 1 OR 2 VWS WITH PEL VISon 12-28-2021 HIP LEFT 1 OR 2 VWS WITH PELVIS [facility] Department of Radiology [address] [place] [id number] Patient Name: JESSICA GONZALEZ : 1945 Sex: F Age: Race: White Pt. Location: [address] [place] [address] Patient Status: I Ordered Date: 12/28/2021 12:40:00 PM Completed Date: 12/28/2021 01:21 PM Requesting Provider: UMM REY Attending Provider: DEVENDRA PRITCHARD Report Copy To: Signs & Symptoms: Pain ( specify Location) History: See Comments Comments: R/O FX, Patient has L GIACOMO to include level of hip to mid femur Exam: HIP LEFT 1 OR 2 VWS WITH PELVIS HIP LEFT 1 OR 2 VWS WITH PELVIS HISTORY: Left-sided hip pain, history of prior replacement. COMPARISON: 11/02/2021. IMPRESSION: 1. Redemonstrated changes from left-sided hip replacement, no acute abnormality. No complication. 2. 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 Electronically signed: Fredrick Chawla. Transcribed by: [email or web address], User Resident: Electronically Signed by: FREDRICK CHAWLA @ 12/28/2021 01:24 PM Normal [facility] Comment on above: Order Comment: R/O F X, Patient has L GIACOMO to include level of hip to mid femur BASIC METABOLIC PANELon 08-0 Calcium [Mass/Vol] 7.8 mg/dL Low 8.6-10.3 [facility] Comment on above: Order Comment: No: D o not add to previous draw Performed By: #### 0 0071, 30056, 25521 ####[facility] [facility] [place] [address], [facility] Chloride [Moles/Vol] 110 mmol/L High 98-107 [facility] Comment on above: Order Comment: No: D o not add to previous draw Performed By: #### 0 0071, 23264, 36798 ####[facility] [place] [address], [place] CO2 [Moles/Vol] 25 mmol/L Normal 21-31 [facility] Comment on above: Order Comment: No: D o not add to previous draw Performed By: #### 0 0071, 09375, 26809 ####[facility] [place] [address], [facility] Creatinine [Mass/Vol] 0.73 mg/dL Normal 0.60-1.20 [facility] Comment on above: Order Comment: No: D o not add to previous draw Performed By: #### 0 0071, 64119, 47284 ####[facility] [place] [address], [facility] GFR/1.73 sq M.predicted among non-blacks MDRD (S/P/Bld) [Vol rate/Area] mL/min/{1.73_m2} Normal >60 [facility] Comment on above: Order Comment: No: D o not add to previous draw Result Comment: [facility]'s estimated glomerular filtration rate (eGFR) will no longer include consideration of race in its calculation. The National Kid[employer] Foundation's eGFR Task Force developed new recommendations for the estimation of the glomerular filtration rate in the [place] They recommend immediate implementation of the new equation refit without the race variable in all laboratories because the calculation does not include race. In addition to not including race in the calculation and reporting, it included diversity in its development, and has acceptable performance characteristics and potential consequences that do not disproportionately affect any one group of individuals. Performed By: #### 0 0071, 58607, 97132 ####[facility] [place] [address], [facility] Glucose [Mass/Vol] 124 mg/dL High 70-100 [facility] Comment on above: Order Comment: No: D o not add to previous draw Performed By: #### 0 0071, 08082, 29848 ####[facility] [place] [address], [facility] Potassium [Moles/Vol] 4.1 mmol/L Normal 3.5-5.1 [facility] Comment on above: Order Comment: No: D o not add to previous draw Performed By: #### 0 0071, 39589, 29404 ####[facility] Sodium [Moles/Vol] 142 mmol/L Normal 136-145 [facility] Comment on above: Order Comment: No: D o not add to previous draw Performed By: #### 0 0071, 78145, 58709 ####[facility] Urea nitrogen [Mass/Vol] 11 mg/dL Normal 7-25 [facility] Comment on above: Order Comment: No: D o not add to previous draw Performed By: #### 0 0071, 24877, 49160 ####[facility] CBC COMPLETE BLOOD COUNTon 0 - Erythrocyte distribution width (RBC) [Ratio] 17.9 % High 11.5-15.0 [facility] Comment on above: Order Comment: Unkno wn Performed By: #### 5 0608 ####[facility] Hematocrit (Bld) [Volume fraction] 25.1 % Low 36.0-45.0 [facility] Comment on above: Order Comment: Unkno wn Performed By: #### 5 0608 ####[facility] Hemoglobin (Bld) [Mass/Vol] 7.6 g/dL Low 12.0-15.0 [facility] Comment on above: Order Comment: Unkno wn Performed By: #### 5 0608 ####[facility] MCH (RBC) [Entitic mass] 29.1 pg Normal 27.0-33.0 [facility] Comment on above: Order Comment: Unkno wn Performed By: #### 5 0608 ####[facility] [facility].[address] MCHC (RBC) [Mass/Vol] 30.3 g/dL Low 32.0-35.0 [facility] Comment on above: Order Comment: Unkno wn Performed By: #### 5 0608 ####[facility] [facility].[address] MCV (RBC) [Entitic vol] 96.2 fL Normal 82.0-98.0 [facility] Comment on above: Order Comment: Unkno wn Performed By: #### 5 0608 ####[facility] Nucleated RBC/100 WBC (Bld) [Ratio] 0 % Normal 0-0 [facility] Comment on above: Order Comment: Unkno wn Performed By: #### 5 0608 ####[facility] PLAT CNT 324 10*3/uL Normal 150-400 [facility] Comment on above: Order Comment: Unkno wn Performed By: #### 5 0608 ####[facility] [place] [address], [facility] RBC (Bld) [#/Vol] 2.61 10*6/uL Low 3.80-5.00 [facility] Comment on above: Order Comment: Unkno wn Performed By: #### 5 0608 ####[facility] [place] [address], [facility] WBC (Bld) [#/Vol] 7.16 10*3/uL Normal 4.00-10.60 [facility] Comment on above: Order Comment: Unkno wn Performed By: #### 5 0608 ####[facility] [facility] [place] [address], [facility] MAGNESIUM BLOODon 12-27-2021 Magnesium [Mass/Vol] 1.8 mg/dL Low 1.9-2.7 [facility] Comment on above: Order Comment: No: D o not add to previous draw Performed By: #### 0 0071, 39199, 34696 ####[facility] [place] [address], [facility] PHOSPHORUS BLOODon Phosphate [Mass/Vol] 2.8 mg/dL Normal 2.5-5.0 [facility] Comment on above: Order Comment: No: D o not add to previous draw Performed By: #### 0 0071, 42017, 90545 ####[facility] [place] [address], [facility] BASIC METABOLIC PANELon Calcium [Mass/Vol] 7.6 mg/dL Low 8.6-10.3 [facility] Comment on above: Order Comment: No: D o not add to previous draw Performed By: #### 3 0953, 56937, 55565 ####[facility] [place] [address], [facility] Chloride [Moles/Vol] 106 mmol/L Normal 98-107 [facility] Comment on above: Order Comment: No: D o not add to previous draw Performed By: #### 3 0953, 53758, 69456 ####[facility] [place] [address], [place] CO2 [Moles/Vol] 26 mmol/L Normal 21-31 [facility] Comment on above: Order Comment: No: D o not add to previous draw Performed By: #### 3 0953, 99576, 17914 ####[facility] [place] [address], [place] Creatinine [Mass/Vol] 0.91 mg/dL Normal 0.60-1.20 [facility] Comment on above: Order Comment: No: D o not add to previous draw Performed By: #### 3 0953, 30452, 24899 ####[place] [address] [place] [address], [facility] GFR/1.73 sq M.predicted among non-blacks MDRD (S/P/Bld) [Vol rate/Area] mL/min/{1.73_m2} Normal >60 [facility] Comment on above: Order Comment: No: D o not add to previous draw Result Comment: [facility]'s estimated glomerular filtration rate (eGFR) will no longer include consideration of race in its calculation. The National Kidney Foundation's eGFR Task Force developed new recommendations for the estimation of the glomerular filtration rate in the [place] They recommend immediate implementation of the new equation refit without the race variable in all laboratories because the calculation does not include race. In addition to not including race in the calculation and reporting, it included diversity in its development, and has acceptable performance characteristics and potential consequences that do not disproportionately affect any one group of individuals. Performed By: #### 3 0953, 16824, 06946 ####[facility] [place] [address], [facility] Glucose [Mass/Vol] 83 mg/dL Normal 70-100 [facility] Comment on above: Order Comment: No: D o not add to previous draw Performed By: #### 3 0953, 98865, 57559 ####[facility] [place] [address], [facility] Potassium [Moles/Vol] 4.1 mmol/L Normal 3.5-5.1 [facility] Comment on above: Order Comment: No: D o not add to previous draw Performed By: #### 3 0953, 52687, 68161 ####[facility] [place] [address], [facility] Sodium [Moles/Vol] 140 mmol/L Normal 136-145 [facility] Comment on above: Order Comment: No: D o not add to previous draw Performed By: #### 3 0953, 83215, 72260 ####[facility] [id number], [place] Urea nitrogen [Mass/Vol] 11 mg/dL Normal 7-25 [facility] Comment on above: Order Comment: No: D o not add to previous draw Performed By: #### 3 0953, 34994, 86902 ####[facility] [place] [address], [place] Calcium [Mass/Vol] 7.7 mg/dL Low 8.6-10.3 [facility] Comment on above: Order Comment: No: D o not add to previous draw Performed By: #### 0 0071, 91800, 67577 ####[facility] [place] [address], [place] Chloride [Moles/Vol] 105 mmol/L Normal 98-107 [facility] Comment on above: Order Comment: No: D o not add to previous draw Performed By: #### 0 0071, 77344, 60895 ####[facility] [place] [address], [place] CO2 [Moles/Vol] 26 mmol/L Normal 21-31 [facility] Comment on above: Order Comment: No: D o not add to previous draw Performed By: #### 0 0071, 78045, 20170 ####[facility] [id number], [place] Creatinine [Mass/Vol] 0.95 mg/dL Normal 0.60-1.20 [facility] Comment on above: Order Comment: No: D o not add to previous draw Performed By: #### 0 0071, 53006, 71361 ####[facility] [place] [address], [place] GFR/1.73 sq M.predicted among non-blacks MDRD (S/P/Bld) [Vol rate/Area] mL/min/{1.73_m2} Normal >60 [facility] Comment on above: Order Comment: No: D o not add to previous draw Result Comment: [facility]'s estimated glomerular filtration rate (eGFR) will no longer include consideration of race in its calculation. The National Kidney Foundation's eGFR Task Force developed new recommendations for the estimation of the glomerular filtration rate in the [place] They recommend immediate implementation of the new equation refit without the race variable in all laboratories because the calculation does not include race. In addition to not including race in the calculation and reporting, it included diversity in its development, and has acceptable performance characteristics and potential consequences that do not disproportionately affect any one group of individuals. Performed By: #### 0 0071, 30021, 04294 ####[facility] [place] [address], [facility] Glucose [Mass/Vol] 130 mg/dL High 70-100 [facility] Comment on above: Order Comment: No: D o not add to previous draw Performed By: #### 0 0071, 63152, 87302 ####[facility] [place] [address], [facility] Potassium [Moles/Vol] 4.2 mmol/L Normal 3.5-5.1 [facility] Comment on above: Order Comment: No: D o not add to previous draw Performed By: #### 0 0071, 82554, 56734 ####[facility] [place] [address], [facility] Sodium [Moles/Vol] 140 mmol/L Normal 136-145 [facility] Comment on above: Order Comment: No: D o not add to previous draw Performed By: #### 0 0071, 41606, 88825 ####[facility] [id number], [place] Urea nitrogen [Mass/Vol] 12 mg/dL Normal 7-25 [facility] Comment on above: Order Comment: No: D o not add to previous draw Performed By: #### 0 0071, 88844, 06126 ####[facility] [facility].[address] BNP (B-TYPE NATRIURETIC PEPT JOANNE)on 12-26-2021 Natriuretic peptide B (Bld) [Mass/Vol] 224 pg/mL High 0-100 [facility] Comment on above: Order Comment: No: D o not add to previous draw Result Comment: Give n the appropriate clinical setting a BNP result of >100 pg/mL indicates congestive heart failure. Performed By: #### 8 5123 ####[facility] CBC COMPLETE BLOOD COUNTon 0 12-26-2021 Erythrocyte distribution width (RBC) [Ratio] 17.7 % High 11.5-15.0 [facility] Comment on above: Order Comment: No: D o not add to previous draw Performed By: #### 5 0608 ####[facility] Hematocrit (Bld) [Volume fraction] 25.9 % Low 36.0-45.0 [facility] Comment on above: Order Comment: No: D o not add to previous draw Performed By: #### 5 0608 ####[facility] Hemoglobin (Bld) [Mass/Vol] 8.1 g/dL Low 12.0-15.0 [facility] Comment on above: Order Comment: No: D o not add to previous draw Performed By: #### 5 0608 ####[facility] [facility].[address] MCH (RBC) [Entitic mass] 29.1 pg Normal 27.0-33.0 [facility] Comment on above: Order Comment: No: D o not add to previous draw Performed By: #### 5 0608 ####[facility] [facility].[address] MCHC (RBC) [Mass/Vol] 31.3 g/dL Low 32.0-35.0 [facility] Comment on above: Order Comment: No: D o not add to previous draw Performed By: #### 5 0608 ####[facility] MCV (RBC) [Entitic vol] 93.2 fL Normal 82.0-98.0 [facility] Comment on above: Order Comment: No: D o not add to previous draw Performed By: #### 5 0608 ####[facility] [facility].[address] Nucleated RBC/100 WBC (Bld) [Ratio] 0 % Normal 0-0 [facility] Comment on above: Order Comment: No: D o not add to previous draw Performed By: #### 5 0608 ####[facility] [facility].[address] PLAT CNT 356 10*3/uL Normal 150-400 [facility] Comment on above: Order Comment: No: D o not add to previous draw Performed By: #### 5 0608 ####[facility] [facility].[address] RBC (Bld) [#/Vol] 2.78 10*6/uL Low 3.80-5.00 [facility] Comment on above: Order Comment: No: D o not add to previous draw Performed By: #### 5 0608 ####[facility] [facility] [place] [address], [facility] WBC (Bld) [#/Vol] 9.74 10*3/uL Normal 4.00-10.60 [facility] Comment on above: Order Comment: No: D o not add to previous draw Performed By: #### 5 0608 ####[facility] MAGNESIUM BLOODon 12-26-2021 Magnesium [Mass/Vol] 1.7 mg/dL Low 1.9-2.7 [facility] Comment on above: Order Comment: Unkno wn Performed By: #### 3 0953, 19840, 72063 ####[facility] Order Comment: No: D o not add to previous draw Performed By: #### 0 0071, 29875, 77919 ####[facility] Operative Reporton 2 Operative Report MR#: [id number] I [facility] Pt. Name: Jessica Gonzalez Room #: 5AB [id number] Discharge Date: Birthdate: 1945 OPERATIVE REPORT DATE OF SURGERY: 12/25/2021 SURGEON: New Quiñones MD PREOPERATIVE DIAGNOSES: 1. Infected necrotic wound, left hip. 2. History of left total hip arthroplasty. POSTOPERATIVE DIAGNOSES: 1. Infected necrotic wound, left hip extending into the left hip joint. 2. History of total hip arthroplasty with orthopedic hardware in place. PROCEDURES PERFORMED: 1. I and D of left hip wound with excision of necrotic tissue, 10 x 8 cm. 2. VAC placement. CEREAL POPPER: INDICATIONS: This patient is a 76-year-old woman who had multiple medical problems in the past including poor healing and necrosis of the skin. She underwent initially left total hip arthroplasty in 2017. She made uneventful recovery at that time, however, had displacement of the hardware and required revision. This was performed 2 months ago. Following the procedure, the patient had ischemic issues, dehiscence, and infection of the wound. The patient was conservatively managed and wound significantly improved. Plastic Surgery consulted for possible closure. On evaluation, the patient has no acute inflammation or infection of the edges and skin appears to be rather recovered. However, the wound itself remains at about 10 x 8 cm in size with granulating muscle of the tensor fascia niya on the left side within the wound. However, posterior portion of the wound appears to be a necrotic fibrinous tissue with some discharge seen and undermining of the edges noticed. Edges of the skin rounded, consistent with chronic wound. At this point, the patient has very thin subcutaneous tissue and palpable hip under the low very thin layer of the fibrinous necrotic tissue with some purulence seen and initially plans for debridement discussed with the patient. I expressed my concerns about possible extension of the infection and wound into the joint. However, plan at this point is to proceed with debridement of necrotic tissue only with placement of the VAC with possible return for definitive closure of the wound. The patient was extremely anxious. Discussion was undertaken with her in the presence of her sister. The patient expressed understanding and wants to proceed with surgery. DESCRIPTION OF PROCEDURE: The patient was taken to the operating room, positioned supine on the table. General endotracheal anesthesia introduced prior to entering the operating room for positive COVID testing. The area of the left hip was prepped and draped in usual sterile fashion with Hibiclens prep. Time-out was called. The patient plans for surgery, site of surgery properly identified. No concerns expressed by the surgical team. The wound as previously described, 8 x 10 cm in size, posteriorly necrotic and infected tissue seen with some significant undermining for approximately 4-5 cm extending predominantly posteriorly and superiorly. Anteriorly, undermining is also present. However, this is all were granulating surface of the tensor fascia niya. Initially, methylene blue marking of all surfaces was made and cleaning proceeded with tangential excision of the edges with a #10 blade, debridement of the surface of the muscle and posteriorly in order to approach the area of the undermining and necrotic area. The posterior healed portion of the orthopedic surgery scar was reopened for 6 cm allowing elevation of the posterior flap and evaluation of the tissue. As tissue was elevated, there is an opening of approximately 4 x 3 cm in size extending deep into the tissue with visible trochanter of the left hip and wound extends deep towards the joint. This was probed by the blunt instrument and obviously extends into the joint towards the acetabulum. The tissues inside were seen as marked with methylene blue as well. At this point, the edges of the opening on the capsule appear infected and shredded. Those were conservatively debrided with approximately 2-3 mm of excision of the methylene blue marked tissue and excision of the obviously necrotic tissue between that open wound and the lateral aspect of the tensor fascia niya portion was debrided with tangential excision of obviously necrotic tissue. At this point, copious irrigation and cleansing with peroxide and Betadine performed and 3 L of warm normal saline lavage performed. The decision was made to proceed with original plan and following placement of the Adaptic over the posterior portion of the wound and especially covering the deeper extension towards the joint. The medium VAC sponge was secured and placed with application of the occlusive dressing and VAC connected to -125 cm water pressure suction. At this point, procedure was completed. The patient tolerated the procedure well. COMPLICATIONS: None. ESTIMATED BLOOD LOSS: Less th (more content not included)... Normal [facility] PORTABLE CHEST 1 VIEWon 08 PORTABLE CHEST 1 VIEW [facility] Department of Radiology [address] [place] [id number] Patient Name: JESSICA GONZALEZ : 1945 Sex: F Age: Race: White Pt. Location: [id number] Patient Status: O Ordered Date: 12/26/2021 1:10:00 AM Completed Date: 12/26/2021 01:52 AM Requesting Provider: MAN CHANDRA Attending Provider: DEVENDRA PRITCHARD Report Copy To: Signs & Symptoms: CHF History: See Comments Comments: evaluate for Pulmonary Edema Exam: PORTABLE CHEST 1 VIEW PORTABLE CHEST 1 VIEW 12/26/2021 1:52 AM CLINICAL INDICATIONS: CHF TECHNOLOGIST COMMENTS: shortness of breath, productive cough hx covid QUESTION FOR THE RADIOLOGIST: evaluate for Pulmonary Edema PROTOCOL: AP(PA) view was obtained. COMPARISON: 12/25/2021 FINDINGS: Patient is rotated. Cardiopericardial silhouette is unchanged, given difference in technique. Improved vascular congestion. Curvilinear lucency peripheral aspect of the right thorax likely a skinfold. No pleural effusion. No pneumothorax. Cannulated screw left glenoid. Degenerative changes left glenohumeral and acromioclavicular joint. Degenerative changes right glenohumeral joint. IMPRESSION: Gradual improvement in vascular congestion. Approved by:Romi Tran12/26/2021 2:28 AM. I, Benson Waite,have reviewed the image(s) and agree with the findings in this report. Electronically signed: Benson Waite. Transcribed by: [email or web address], User Resident: ROMI GUTHRIE Electronically Signed by: BENSON WAITE @ 12/26/2021 02:40 AM I personally read this/these film(s) with this resident Normal [facility] Comment on above: Order Comment: evalu ate for Pulmonary Edema TSH3 WITH REFLEX FT4on 12-26 TSH 3RD GENERATION 3.14 uIU/mL Normal 0.34-5.60 [facility] Comment on above: Performed By: #### 0 0071, [id number], [id number] ####[facility] VANCOMYCIN TIMEDon VANCOMYCIN TIMED 9.9 mcg/mL Normal [facility] Comment on above: Performed By: #### 3 0953, 79041, [address] ####[facility] *ANAEROBIC CULTUREon 022 *ANAEROBIC CULTURE Clinical Report: (C) Specimen/Source: TISSUE/INTRAOP SPEC Collected: 12/25/2021 09:07 Status: Final Last Updated: 12/30/2021 07:39 (1) #2 L. HIP WOUND TISSUE ISO (Final) ^No Anaerobes Isolated 5 Days Result changed by JLEMCRIS on 12/30/2021 07:39. The previous result was: ISO (Prelim) ^No strict anaerobes isolated to Date Normal [facility] Comment on above: Order Comment: #2 L. HIP WOUND TISSUE Performed By: #### 3 0312 ####[facility] *ANAEROBIC CULTURE Clinical Report: (D) Specimen/Source: SWAB/INTRAOP SPEC Collected: 12/25/2021 09:05 Status: Final Last Updated: 12/30/2021 07:30 (1) #1 L. HIP WOUND CULT RES (Final) No Anaerobes Isolated 5 Days Normal [facility] Comment on above: Order Comment: #1 L. HIP WOUND Performed By: #### 3 0312 ####[facility] *FUNGAL CULTUREon 12-25-2021 *FUNGAL CULTURE Clinical Report: (D) Specimen/Source: TISSUE/INTRAOP SPEC Collected: 12/25/2021 09:07 Status: Final Last Updated: 01/25/2022 07:42 (1) #2 L. HIP WOUND TISSUE FS (Final) No Yeast or Fungal Elements Seen CULT RES (Final) Culture negative for fungus Normal [facility] Comment on above: Order Comment: #2 L. HIP WOUND TISSUE Performed By: #### 3 0323 ####[facility] *FUNGAL CULTURE Clinical Report: (D) Specimen/Source: SWAB/INTRAOP SPEC Collected: 12/25/2021 09:05 Status: Final Last Updated: 01/25/2022 07:42 (1) #1 L. HIP WOUND FS (Final) No Yeast or Fungal Elements Seen CULT RES (Final) Culture negative for fungus Normal [facility] Comment on above: Order Comment: #1 L. HIP WOUND Performed By: #### 3 0323 ####[facility] *TISSUE CULTUREon 12-25-2021 *TISSUE CULTURE Clinical Report: (D) Specimen/Source: TISSUE/INTRAOP SPEC Collected: 12/25/2021 09:07 Status: Final Last Updated: 12/28/2021 08:14 (1) #2 L. HIP WOUND TISSUE GRAM (Final) Rare Polys Many Gram Positive Cocci In Pairs, Chains and Clusters Rare Gram Positive Bacilli Rare Gram Negative Bacilli ISO (Final) Serratia marcescens Rare Growth ISO (Final) Pseudomonas aeruginosa Light Growth ISO (Final) Streptococcus agalactiae (Strep. group B) Moderate Growth ISO (Final) Corynebacterium striatum group Light Growth ISOLATE: ISOLATE: Serratia marcescens Pseudomonas aeruginosa JANICE (mcg/ml) AMP./SULBAC (AMS) 16/8 Resistant AMPICILLIN (AM) 16 Resistant AZTREONAM (AZM) <=2 Susceptible AZTREONAM (AZM) 16 Intermediate CEFAZOLIN (CZ) >16 Resistant CEFEPIME (FEP) 8 Susceptible CEFTRIAXONE (SEISMOGRAPHER) <=1 Susceptible CIPROFLOXACIN (CIP) <=0.25 Susceptible <=0.25 Susceptible GENTAMICIN (GM) <=2 Susceptible <=2 Susceptible MEROPENEM (MEM) <=0.5 Susceptible PIP/TAZO (TZP) <=4/4 Susceptible PIP/TAZO (TZP) >64/4 Resistant TOBRAMYCIN (TOB) <=2 Susceptible <=2 Susceptible Antibiotic Summary Grid: AMS AM AZM CZ FEP SEISMOGRAPHER CIP GM MEM TZP TOB Serratia marcescens R R S R S S S S S Pseudomonas I S S S S R S aeruginosa Normal [facility] Comment on above: Order Comment: #2 L. HIP WOUND TISSUE Performed By: #### 3 0338 ####[facility] *WOUND CULTUREon 12-25-2021 *WOUND CULTURE Clinical Report: (D) Specimen/Source: WOUND/INTRAOP SPEC Collected: 12/25/2021 09:05 Status: Final Last Updated: 12/30/2021 06:25 (1) #1 L. HIP WOUND GRAM (Final) No Polys Seen No Bacteria Seen CULT RES (Final) No Growth Day 5 Normal [facility] Comment on above: Order Comment: #1 L. HIP WOUND Performed By: #### 3 0343 ####[facility] [facility].[address] BASIC METABOLIC PANELon 08-0 -2021 Calcium [Mass/Vol] 8.1 mg/dL Low 8.6-10.3 [facility] Comment on above: Order Comment: Yes: Add to Previous draw if able Performed By: #### 0 0071 ####[facility] [place] [address], [facility] Chloride [Moles/Vol] 102 mmol/L Normal 98-107 [facility] Comment on above: Order Comment: Yes: Add to Previous draw if able Performed By: #### 0 0071 ####[facility] [place] [address], [facility] CO2 [Moles/Vol] 28 mmol/L Normal 21-31 [facility] Comment on above: Order Comment: Yes: Add to Previous draw if able Performed By: #### 0 0071 ####[facility] [place] [address], [facility] Creatinine [Mass/Vol] 1.00 mg/dL Normal 0.60-1.20 [facility] Comment on above: Order Comment: Yes: Add to Previous draw if able Performed By: #### 0 0071 ####[address] [place] [address], [facility] EGFR 58 ml/min/1.73sq m Abnormal >60 [facility] Comment on above: Order Comment: Yes: Add to Previous draw if able Result Comment: [facility]'s estimated glomerular filtration rate (eGFR) will no longer include consideration of race in its calculation. The [employer]'s eGFR Task Force developed new recommendations for the estimation of the glomerular filtration rate in the [place] They recommend immediate implementation of the new equation refit without the race variable in all laboratories because the calculation does not include race. In addition to not including race in the calculation and reporting, it included diversity in its development, and has acceptable performance characteristics and potential consequences that do not disproportionately affect any one group of individuals. Performed By: #### 0 0071 ####[facility] [facility] [place] [address], [facility] Glucose [Mass/Vol] 133 mg/dL High 70-100 [facility] Comment on above: Order Comment: Yes: Add to Previous draw if able Performed By: #### 0 0071 ####[facility] [place] [address], [facility] Potassium [Moles/Vol] 4.0 mmol/L Normal 3.5-5.1 [facility] Comment on above: Order Comment: Yes: Add to Previous draw if able Performed By: #### 0 0071 ####[facility] [place] [address], [facility] Sodium [Moles/Vol] 138 mmol/L Normal 136-145 [facility] Comment on above: Order Comment: Yes: Add to Previous draw if able Performed By: #### 0 0071 ####[facility] [place] [address], [facility] Urea nitrogen [Mass/Vol] 16 mg/dL Normal 7-25 [facility] Comment on above: Order Comment: Yes: Add to Previous draw if able Performed By: #### 0 0071 ####[place] [id number] [place] [address], [facility] C REACTIVE PROTEINon 022 CRP [Mass/Vol] 79.4 mg/L High 0.0-7.0 [facility] Comment on above: Order Comment: No: D o not add to previous draw Performed By: #### 6 1405 ####[facility] [id number], [facility] CRP [Mass/Vol] 77.2 mg/L High 0.0-7.0 [facility] Comment on above: Order Comment: Yes: Add to Previous draw if able Performed By: #### 6 1405 ####[facility] CBC W/DIFFon 12-25-2021 ABS IMM GRANS 0.0 10*3/uL Normal 0.0-0.2 [facility] Comment on above: Order Comment: Yes: Add to Previous draw if able Performed By: #### 5 0103 ####[facility] [place] [address] ABS NEUTROPHILS 4.6 10*3/uL Normal 1.6-7.6 [facility] Comment on above: Order Comment: Yes: Add to Previous draw if able Performed By: #### 5 0103 ####[facility] [place] [address] Basophils (Bld) [#/Vol] 0.1 10*3/uL Normal 0.0-0.2 [facility] Comment on above: Order Comment: Yes: Add to Previous draw if able Performed By: #### 5 0103 ####[facility] Basophils/100 WBC (Bld) 0.8 % Normal 0.0-1.0 [facility] Comment on above: Order Comment: Yes: Add to Previous draw if able Performed By: #### 5 0103 ####[facility] Eosinophils (Bld) [#/Vol] 0.2 10*3/uL Normal 0.0-0.5 [facility] Comment on above: Order Comment: Yes: Add to Previous draw if able Performed By: #### 5 0103 ####[facility] Eosinophils/100 WBC (Bld) 2.7 % Normal 0.0-6.0 [facility] Comment on above: Order Comment: Yes: Add to Previous draw if able Performed By: #### 0103 ####[facility] Erythrocyte distribution width (RBC) [Ratio] 17.6 % High 11.5-15.0 [facility] Comment on above: Order Comment: Yes: Add to Previous draw if able Performed By: #### 3 ####[facility] [place] [address] Hematocrit (Bld) [Volume fraction] 26.0 % Low 36.0-45.0 [facility] Comment on above: Order Comment: Yes: Add to Previous draw if able Performed By: #### 3 ####[address] Hemoglobin (Bld) [Mass/Vol] 8.1 g/dL Low 12.0-15.0 [facility] Comment on above: Order Comment: Yes: Add to Previous draw if able Performed By: #### 3 ####[facility] [place] [address] IMMATURE GRANS 0.3 % Normal 0.0-1.0 [facility] Comment on above: Order Comment: Yes: Add to Previous draw if able Performed By: #### 3 ####[address] Lymphocytes (Bld) [#/Vol] 0.9 10*3/uL Low 1.2-4.0 [facility] Comment on above: Order Comment: Yes: Add to Previous draw if able Performed By: #### 5 3 ####[address] Lymphocytes/100 WBC (Bld) 15.6 % Low 20.0-45.0 [facility] Comment on above: Order Comment: Yes: Add to Previous draw if able Performed By: #### 0103 ####[facility]3000 [facility].[address] MCH (RBC) [Entitic mass] 28.9 pg Normal 27.0-33.0 [facility] Comment on above: Order Comment: Yes: Add to Previous draw if able Performed By: #### 5 0103 ####[facility] [facility].[address] MCHC (RBC) [Mass/Vol] 31.2 g/dL Low 32.0-35.0 [facility] Comment on above: Order Comment: Yes: Add to Previous draw if able Performed By: #### 3 ####[facility] [place] [address] MCV (RBC) [Entitic vol] 92.9 fL Normal 82.0-98.0 [facility] Comment on above: Order Comment: Yes: Add to Previous draw if able Performed By: #### 102 ####[facility] Monocytes (Bld) [#/Vol] 0.3 10*3/uL Normal 0.1-1.0 [facility] Comment on above: Order Comment: Yes: Add to Previous draw if able Performed By: #### 3 ####[facility] [place] [address] MONOS 4.2 % Low 5.0-12.0 [facility] Comment on above: Order Comment: Yes: Add to Previous draw if able Performed By: #### 3 ####[facility] Neutrophils/100 WBC (Bld) 76.4 % High 40.0-72.0 [facility] Comment on above: Order Comment: Yes: Add to Previous draw if able Performed By: #### 5 0103 ####[facility] [facility].[address] Nucleated RBC/100 WBC (Bld) [Ratio] 0 % Normal 0-0 [facility] Comment on above: Order Comment: Yes: Add to Previous draw if able Performed By: #### 5 0103 ####[facility] [place] [address], [facility] PLAT CNT 410 10*3/uL High 150-400 [facility] Comment on above: Order Comment: Yes: Add to Previous draw if able Performed By: #### 5 0103 ####[facility] [facility].[address] RBC (Bld) [#/Vol] 2.80 10*6/uL Low 3.80-5.00 [facility] Comment on above: Order Comment: Yes: Add to Previous draw if able Performed By: #### 5 0103 ####[facility] [facility].[address] WBC (Bld) [#/Vol] 5.98 10*3/uL Normal 4.00-10.60 [facility] Comment on above: Order Comment: Yes: Add to Previous draw if able Performed By: #### 5 0103 ####[facility] [facility].[address] POC GLUCOSE LABon 12-25-2021 Glucose [Mass/Vol] 88 mg/dL Normal 70-100 [facility] Comment on above: Performed By: #### 8 5499 ####[facility] [facility].[address] POC SARS COV2 IDon 2 SARS-CoV-2 (COVID-19) RNA VITO+probe Ql (Unsp spec) Positive Critically abnormal NEGATIVE [facility] Comment on above: Result Comment: ID N OW COVID-19 assay performed on the ID NOW Instrument is a rapid molecular in vitro diagnostic test utilizing an isothermal nucleic acid amplification technology intended for the qualitative detection of nucleic acid from the SARS-CoV-2 virus in direct anterior nasal (nasal), nasopharyngeal or throat swabs from individuals who are suspected of COVID-19 by their healthcare provider within the first seven days of the onset of symptoms. Testing is limited to laboratories certified under the Clinical Laboratory Improvement Amendments of 1988 (CLIA), 42 U.S.C. ???263a,that meet the requirements to perform high, moderate, or waived complexity tests. The ID NOW COVID-19 assay is also authorized for use at the Point of Care (POC), i.e., in patient care settings operating under a CLIA Certificate of Waiver, Certificate of Compliance, or Certificate of Accreditation. Performed By: #### 3 1921 ####[address] PORTABLE CHEST 1 VIEWon 08 PORTABLE CHEST 1 VIEW [facility] Department of Radiology [address] [place] [id number] Patient Name: JESSICA GONZALEZ : 1945 Sex: F Age: Race: White Pt. Location: [id number] Patient Status: I Ordered Date: 12/25/2021 12:40:00 AM Completed Date: 12/25/2021 01:29 AM Requesting Provider: IVAN NDIAYE Attending Provider: DEVENDRA PRITCHARD Report Copy To: Signs & Symptoms: Productive Cough History: Comments: Atelectasis Exam: PORTABLE CHEST 1 VIEW PORTABLE CHEST 1 VIEW 12/25/2021 1:29 AM CLINICAL INDICATIONS: Productive Cough TECHNOLOGIST COMMENTS: Patient c/o cough and headache. Patient is COVID positive. QUESTION FOR THE RADIOLOGIST: Atelectasis PROTOCOL: AP(PA) view was obtained. COMPARISON: 10/12/2021. FINDINGS: Cardiopericardial silhouette is unchanged. Mild central vascular congestion. Possible trace bilateral pleural effusions. No pneumothorax. Degenerative changes bilateral glenohumeral and acromioclavicular joints. Fixation screw left glenoid. IMPRESSION: Mild central congestion and possible trace bilateral pleural effusions. Approved by:Romi Tran12/25/2021 1:34 AM. I, Benson Waite,have reviewed the image(s) and agree with the findings in this report. Electronically signed: Benson Waite. Transcribed by: [email or web address], User Resident: ROMI GUTHRIE Electronically Signed by: BENSON WAITE @ 12/25/2021 01:35 AM I personally read this/these film(s) with this resident Normal [facility] Comment on above: Order Comment: Atele ctasis PROCALCITONINon 12-25-2021 PROCALCITONIN 0.08 ng/mL Normal 0.00-0.10 [facility] Comment on above: Order Comment: No: D o not add to previous draw Result Comment: Susp ected Lower Respiratory Tract Infection: 0.1-0.25ng/mL- Low likelihood for bacterial infection;Antibiotics discouraged.* >0.25ng/mL- Increased likelihood bacterial infection;Antibiotics encouraged. Suspected Sepsis: Strongly consider initiating antibiotics in all unstable patients. 0.1-0.5ng/mL- Low likelihood for sepsis; Antibiotics discouraged.* >0.5ng/mL- Increased likelihood sepsis; Antibiotics encouraged. >2.0ng/mL- High risk of sepsis/septic shock; Antibiotics strongly encouraged. *Recommend retesting PCT within 6-12hours if clinically indicated and initial PCT<0.5ng/mL Performed By: #### 3 1488 ####[facility] [place], [place] [address] [place] [address] SEDIMENTATION RATEon 022 SED RATE 127 mm/hr High 0-20 [facility] Comment on above: Order Comment: Yes: Add to Previous draw if able Performed By: #### 5 6506 ####[facility] HIP LEFT 1 OR 2 VWS WITH PEL VISon 11-02-2021 HIP LEFT 1 OR 2 VWS WITH PELVIS [facility] Department of Radiology [address] [place] [address] Patient Name: JESSICA GONZALEZ : 1945 Sex: F Age: Race: White Pt. 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 QUESTION FOR THE RADIOLOGIST: Evaluate PROTOCOL: AP(PA) and Lateral views were obtained. COMPARISON: 10/19/2021 Impression: 1. 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 There is no fracture or dislocation. Right hip degenerative changes are stable. Electronically signed: Isaias Tee. Transcribed by: [email or web address], User Resident: Electronically Signed by: ISAIAS TEE @ 11/02/2021 01:25 PM Normal [facility] Comment on above: Order Comment: Evalu ate C REACTIVE PROTEINon 10-25- 022 CRP [Mass/Vol] 11.2 mg/L High 0.0-7.0 [facility] Comment on above: Order Comment: Unkno wn Performed By: #### 6 1405 ####[facility]3000 [facility].[address] BASIC METABOLIC PANELon 06-0 Calcium [Mass/Vol] 7.9 mg/dL Low 8.6-10.3 [facility] Comment on above: Order Comment: No: D o not add to previous draw Performed By: #### 1 0070, 09145 ####[facility] [facility].[address] Chloride [Moles/Vol] 107 mmol/L Normal 98-107 [facility] Comment on above: Order Comment: No: D o not add to previous draw Performed By: #### 1 0070, 09450 ####[facility] [place] [address], [place] CO2 [Moles/Vol] 28 mmol/L Normal 21-31 [facility] Comment on above: Order Comment: No: D o not add to previous draw Performed By: #### 1 0, 50646 ####[facility] [place] [address], [place] Creatinine [Mass/Vol] 0.80 mg/dL Normal 0.60-1.20 [facility] Comment on above: Order Comment: No: D o not add to previous draw Performed By: #### 1 0, 12801 ####[facility] [place] [address], [place] GFR/1.73 sq M.predicted among blacks MDRD (S/P/Bld) [Vol rate/Area] mL/min/{1.73_m2} Normal >60 [facility] Comment on above: Order Comment: No: D o not add to previous draw Result Comment: Calc ulation may not be valid for patients over 70 years Performed By: #### 1 0, 52695 ####[facility] [place] [address], [place] GFR/1.73 sq M.predicted among non-blacks MDRD (S/P/Bld) [Vol rate/Area] mL/min/{1.73_m2} Normal >60 [facility] Comment on above: Order Comment: No: D o not add to previous draw Result Comment: Calc ulation may not be valid for patients over 70 years Performed By: #### 1 0070, 53852 ####[facility] [place] [address], [place] Glucose [Mass/Vol] 133 mg/dL High 70-100 [facility] Comment on above: Order Comment: No: D o not add to previous draw Performed By: #### 1 0070, 94615 ####[facility] [place] [address], [place] Potassium [Moles/Vol] 3.6 mmol/L Normal 3.5-5.1 [facility] Comment on above: Order Comment: No: D o not add to previous draw Performed By: #### 1 0, 94565 ####[facility] [facility] Sodium [Moles/Vol] 141 mmol/L Normal 136-145 [facility] Comment on above: Order Comment: No: D o not add to previous draw Performed By: #### 1 69, 45947 ####[facility] [facility].[address] Urea nitrogen [Mass/Vol] 11 mg/dL Normal 7-25 [facility] Comment on above: Order Comment: No: D o not add to previous draw Performed By: #### 1 69, 91264 ####[facility]3000 [facility].[address] C REACTIVE PROTEINon 022 CRP [Mass/Vol] 20.9 mg/L High 0.0-7.0 [facility] Comment on above: Order Comment: No: D o not add to previous draw Performed By: #### 6 1405 ####[place] [id number] [facility].[address] CBC W/DIFFon 10-24-2021 ABS IMM GRANS 0.1 10*3/uL Normal 0.0-0.2 [facility] Comment on above: Order Comment: No: D o not add to previous draw Performed By: #### 5 0103 ####[facility] [facility].[address] ABS NEUTROPHILS 7.2 10*3/uL Normal 1.6-7.6 [facility] Comment on above: Order Comment: No: D o not add to previous draw Performed By: #### 5 0103 ####[facility] [place] [address], [facility] Basophils (Bld) [#/Vol] 0.0 10*3/uL Normal 0.0-0.2 [facility] Comment on above: Order Comment: No: D o not add to previous draw Performed By: #### 5 0103 ####[facility] [place] [address], [facility] Basophils/100 WBC (Bld) 0.1 % Normal 0.0-1.0 [facility] Comment on above: Order Comment: No: D o not add to previous draw Performed By: #### 5 0103 ####[facility] [facility] [place] [address], [facility] Eosinophils (Bld) [#/Vol] 0.0 10*3/uL Normal 0.0-0.5 [facility] Comment on above: Order Comment: No: D o not add to previous draw Performed By: #### 5 0103 ####[facility] [facility] [place] [address], [facility] Eosinophils/100 WBC (Bld) 0.0 % Normal 0.0-6.0 [facility] Comment on above: Order Comment: No: D o not add to previous draw Performed By: #### 5 3 ####[facility] [facility] Erythrocyte distribution width (RBC) [Ratio] 18.1 % High 11.5-15.0 [facility] Comment on above: Order Comment: No: D o not add to previous draw Performed By: #### 5 0103 ####[facility] [facility] [place] [address], [facility] Hematocrit (Bld) [Volume fraction] 26.9 % Low 36.0-45.0 [facility] Comment on above: Order Comment: No: D o not add to previous draw Performed By: #### 5 3 ####[facility] Hemoglobin (Bld) [Mass/Vol] 8.3 g/dL Low 12.0-15.0 [facility] Comment on above: Order Comment: No: D o not add to previous draw Performed By: #### 5 0103 ####[facility] [place] [address], [facility] IMMATURE GRANS 1.1 % High 0.0-1.0 [facility] Comment on above: Order Comment: No: D o not add to previous draw Performed By: #### 5 0103 ####[place] [address], [facility] Lymphocytes (Bld) [#/Vol] 0.6 10*3/uL Low 1.2-4.0 [facility] Comment on above: Order Comment: No: D o not add to previous draw Performed By: #### 5 0103 ####[address] Lymphocytes/100 WBC (Bld) 7.4 % Low 20.0-45.0 [facility] Comment on above: Order Comment: No: D o not add to previous draw Performed By: #### 5 3 ####[address] MCH (RBC) [Entitic mass] 29.4 pg Normal 27.0-33.0 [facility] Comment on above: Order Comment: No: D o not add to previous draw Performed By: #### 5 0103 ####[place] [address], [facility] MCHC (RBC) [Mass/Vol] 30.9 g/dL Low 32.0-35.0 [facility] Comment on above: Order Comment: No: D o not add to previous draw Performed By: #### 5 3 ####[address] MCV (RBC) [Entitic vol] 95.4 fL Normal 82.0-98.0 [facility] Comment on above: Order Comment: No: D o not add to previous draw Performed By: #### 5 0103 ####[facility] [place] [address], [facility] Monocytes (Bld) [#/Vol] 0.3 10*3/uL Normal 0.1-1.0 [facility] Comment on above: Order Comment: No: D o not add to previous draw Performed By: #### 5 0103 ####[address] MONOS 3.8 % Low 5.0-12.0 [facility] Comment on above: Order Comment: No: D o not add to previous draw Performed By: #### 5 0103 ####[facility] Neutrophils/100 WBC (Bld) 87.6 % High 40.0-72.0 [facility] Comment on above: Order Comment: No: D o not add to previous draw Performed By: #### 5 3 ####[address] Nucleated RBC/100 WBC (Bld) [Ratio] 0 % Normal 0-0 [facility] Comment on above: Order Comment: No: D o not add to previous draw Performed By: #### 5 0103 ####[facility] [place] [address], [facility] PLAT CNT 295 10*3/uL Normal 150-400 [facility] Comment on above: Order Comment: No: D o not add to previous draw Performed By: #### 5 3 ####[place] [address], [facility] RBC (Bld) [#/Vol] 2.82 10*6/uL Low 3.80-5.00 [facility] Comment on above: Order Comment: No: D o not add to previous draw Performed By: #### 5 0103 ####[facility] [facility].[address] WBC (Bld) [#/Vol] 8.16 10*3/uL Normal 4.00-10.60 [facility] Comment on above: Order Comment: No: D o not add to previous draw Performed By: #### 5 0103 ####[facility] [facility].[address] MAGNESIUM BLOODon 10-24-2021 Magnesium [Mass/Vol] 1.9 mg/dL Normal 1.9-2.7 [facility] Comment on above: Order Comment: No: D o not add to previous draw Performed By: #### 1 0070, [id number] ####[facility] [facility].[address] APTTon 10-23-2021 aPTT Coag (Bld) [Time] 31.4 s Normal 25.0-35.0 [facility] Comment on above: Order Comment: No: D o not add to previous draw Result Comment: ALL RESULTS MUST BE INTERPRETED WITH RESPECT TO BLOOD DRAWING ARTIFACT OR DILUTION ERROR OF ANTICOAGULANT AT THE TIME OF SAMPLING. THE APTT SHOULD NOT BE USED TO MONITOR UNFRACTIONATED HEPARIN THERAPY, THIS LABORATORY NO LONGER HAS AN ESTABLISHED THERAPEUTIC RANGE BASED ON THE APTT. IT IS RECOMMENDED THAT THE [facility] - HEPARIN ASSAY (ANTI-XA ACTIVITY) BE USED FOR THIS PURPOSE. Performed By: #### 5 6101, [id number] ####[facility] [facility].[address] BASIC METABOLIC PANELon - Calcium [Mass/Vol] 7.6 mg/dL Low 8.6-10.3 [facility] Comment on above: Order Comment: No: D o not add to previous draw Performed By: #### 0 2024, , 17009 ####[facility] [place] [address], [facility] Chloride [Moles/Vol] 108 mmol/L High 98-107 [facility] Comment on above: Order Comment: No: D o not add to previous draw Performed By: #### 0 2024, , [id number] ####[facility] [place] [address], [place] CO2 [Moles/Vol] 26 mmol/L Normal 21-31 [facility] Comment on above: Order Comment: No: D o not add to previous draw Performed By: #### 0 2024, , 85658 ####[facility] [place] [address], [facility] Creatinine [Mass/Vol] 0.70 mg/dL Normal 0.60-1.20 [facility] Comment on above: Order Comment: No: D o not add to previous draw Performed By: #### 0 2024, , 82970 ####[facility] [place] [address], [facility] GFR/1.73 sq M.predicted among blacks MDRD (S/P/Bld) [Vol rate/Area] mL/min/{1.73_m2} Normal >60 [facility] Comment on above: Order Comment: No: D o not add to previous draw Result Comment: Calc ulation may not be valid for patients over 70 years Performed By: #### 0 2024, , [id number] ####[facility] [place] [address], [place] GFR/1.73 sq M.predicted among non-blacks MDRD (S/P/Bld) [Vol rate/Area] mL/min/{1.73_m2} Normal >60 [facility] Comment on above: Order Comment: No: D o not add to previous draw Result Comment: Calc ulation may not be valid for patients over 70 years Performed By: #### 0 2024, , 86311 ####[facility] Glucose [Mass/Vol] 80 mg/dL Normal 70-100 [facility] Comment on above: Order Comment: No: D o not add to previous draw Performed By: #### 0 2024, , 56932 ####[facility] [facility] Potassium [Moles/Vol] 3.2 mmol/L Low 3.5-5.1 [facility] Comment on above: Order Comment: No: D o not add to previous draw Performed By: #### 0 2024, , 89245 ####[facility] [facility].[address] Sodium [Moles/Vol] 140 mmol/L Normal 136-145 [facility] Comment on above: Order Comment: No: D o not add to previous draw Performed By: #### 0 2024, , 49738 ####[facility] [facility].[address] Urea nitrogen [Mass/Vol] 11 mg/dL Normal 7-25 [facility] Comment on above: Order Comment: No: D o not add to previous draw Performed By: #### 0 2024, , 45494 ####[facility] [facility].[address] CBC W/DIFFon 10-23-2021 ABS IMM GRANS 0.1 10*3/uL Normal 0.0-0.2 [facility] Comment on above: Order Comment: No: D o not add to previous draw Performed By: #### 5 0103 ####[facility] [place] [address], [facility] ABS NEUTROPHILS 5.3 10*3/uL Normal 1.6-7.6 [facility] Comment on above: Order Comment: No: D o not add to previous draw Performed By: #### 5 0103 ####[facility] [facility] [place] [address], [facility] Basophils (Bld) [#/Vol] 0.0 10*3/uL Normal 0.0-0.2 [facility] Comment on above: Order Comment: No: D o not add to previous draw Performed By: #### 5 0103 ####[facility] [place] [address], [facility] Basophils/100 WBC (Bld) 0.4 % Normal 0.0-1.0 [facility] Comment on above: Order Comment: No: D o not add to previous draw Performed By: #### 5 0103 ####[facility] [facility] [place] [address], [facility] Eosinophils (Bld) [#/Vol] 0.3 10*3/uL Normal 0.0-0.5 [facility] Comment on above: Order Comment: No: D o not add to previous draw Performed By: #### 5 0103 ####[facility] [place] [address], [facility] Eosinophils/100 WBC (Bld) 4.4 % Normal 0.0-6.0 [facility] Comment on above: Order Comment: No: D o not add to previous draw Performed By: #### 5 0103 ####[facility] [place] [address], [facility] Erythrocyte distribution width (RBC) [Ratio] 17.9 % High 11.5-15.0 [facility] Comment on above: Order Comment: No: D o not add to previous draw Performed By: #### 5 0103 ####[facility] [place] [address], [facility] Hematocrit (Bld) [Volume fraction] 25.8 % Low 36.0-45.0 [facility] Comment on above: Order Comment: No: D o not add to previous draw Performed By: #### 5 0103 ####[facility] [place] [address], [facility] Hemoglobin (Bld) [Mass/Vol] 8.3 g/dL Low 12.0-15.0 [facility] Comment on above: Order Comment: No: D o not add to previous draw Performed By: #### 5 0103 ####[facility] [place] [address], [facility] IMMATURE GRANS 1.3 % High 0.0-1.0 [facility] Comment on above: Order Comment: No: D o not add to previous draw Performed By: #### 5 0103 ####[facility] Lymphocytes (Bld) [#/Vol] 0.6 10*3/uL Low 1.2-4.0 [facility] Comment on above: Order Comment: No: D o not add to previous draw Performed By: #### 5 0103 ####[facility] Lymphocytes/100 WBC (Bld) 9.1 % Low 20.0-45.0 [facility] Comment on above: Order Comment: No: D o not add to previous draw Performed By: #### 5 0103 ####[facility] MCH (RBC) [Entitic mass] 29.4 pg Normal 27.0-33.0 [facility] Comment on above: Order Comment: No: D o not add to previous draw Performed By: #### 5 0103 ####[facility] [place] [address], [facility] MCHC (RBC) [Mass/Vol] 32.2 g/dL Normal 32.0-35.0 [facility] Comment on above: Order Comment: No: D o not add to previous draw Performed By: #### 5 0103 ####[facility] [place] [address], [facility] MCV (RBC) [Entitic vol] 91.5 fL Normal 82.0-98.0 [facility] Comment on above: Order Comment: No: D o not add to previous draw Performed By: #### 5 0103 ####[facility] [place] [address], [facility] Monocytes (Bld) [#/Vol] 0.5 10*3/uL Normal 0.1-1.0 [facility] Comment on above: Order Comment: No: D o not add to previous draw Performed By: #### 5 0103 ####[facility] MONOS 7.9 % Normal 5.0-12.0 [facility] Comment on above: Order Comment: No: D o not add to previous draw Performed By: #### 5 0103 ####[facility] Neutrophils/100 WBC (Bld) 76.9 % High 40.0-72.0 [facility] Comment on above: Order Comment: No: D o not add to previous draw Performed By: #### 5 0103 ####[facility] [place] [address], [facility] Nucleated RBC/100 WBC (Bld) [Ratio] 0 % Normal 0-0 [facility] Comment on above: Order Comment: No: D o not add to previous draw Performed By: #### 5 0103 ####[facility] [place] [address], [facility] PLAT CNT 302 10*3/uL Normal 150-400 [facility] Comment on above: Order Comment: No: D o not add to previous draw Performed By: #### 5 0103 ####[facility] RBC (Bld) [#/Vol] 2.82 10*6/uL Low 3.80-5.00 [facility] Comment on above: Order Comment: No: D o not add to previous draw Performed By: #### 5 0103 ####[facility] [facility].[address] WBC (Bld) [#/Vol] 6.83 10*3/uL Normal 4.00-10.60 [facility] Comment on above: Order Comment: No: D o not add to previous draw Performed By: #### 5 0103 ####[facility] [facility].[address] MAGNESIUM BLOODon 10-23-2021 Magnesium [Mass/Vol] 2.0 mg/dL Normal 1.9-2.7 [facility] Comment on above: Order Comment: No: D o not add to previous draw Performed By: #### 0 5, 02318, 28765 ####[facility] [facility].[address] Operative Reporton Operative Report MR#: [id number] I [facility] Pt. Name: Jessica Gonzalez Room #: [id number] Discharge Date: Birthdate: 1945 OPERATIVE REPORT DATE OF SURGERY: 10/23/2021 SURGEON: Kevin Varela M.D. CEREAL POPPER: Ahmet Mahan, PGY-3. 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 PROCEDURE PERFORMED: 1. Excisional debridement of skin and subcutaneous tissue including that down to the level of fascia with the wound size measuring 12 cm x 8.5 cm x 2.5 cm in depth. 2. Application of wound vacuum. IMPLANTS: None. ANESTHESIA: General. ESTIMATED BLOOD LOSS: Less than 5 mL. SPECIMENS: None. INDICATION FOR PROCEDURE: The patient is a 76-year-old female, who had a left infected total hip arthroplasty and underwent a stage I revision back in [address] Eisenberg and a stage II revision by Dr. Varela in 2018. 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 After the surgery, which was done through an anterior approach, the patient actually did well, but then developed a necrotic-appearing wound between her anterior and posterolateral hip incisions over the left hip. She was evaluated in the ER and she was evaluated on 10/19/2021 for this left hip wound and was admitted to the Medicine team with Infectious Disease on board with recommendations. The patient was on multiple antibiotics and we monitored the wound appearance, which continued to remain necrotic with some foul smelling odor. Decision was made at this point to proceed with superficial incision and debridement of her wound with placement of the wound VAC knowing that she may have infection of her hip joint with seeding of infection deep to the fascia layer. However, this time, we wanted to proceed with just a superficial I and D knowing that later formal stage revision might be necessary. Risks, indications, benefits, and alternatives were discussed with the patient for the aforementioned procedure at length prior to surgery and she agreed to proceed. DESCRIPTION OF PROCEDURE: The patient met in the preop holding area where written consent was reviewed, the correct limb was marked by Dr. Varela. The patient was brought back to the operating room, placed under general anesthesia. She was placed under supine positioning and then she was prepped and draped in the usual sterile fashion. Preop antibiotics were continued from the floor, which included vancomycin, cefepime, and Flagyl and a preop time-out was performed using 2 separate patient identifiers and a correct surgical site was confirmed by myself and Dr. Varela. We began the procedure with a wound prepped into the field with the overlying necrotic eschar being removed and we examined the wound, noting there was some superficial infectious and non-healthy material in the subcutaneous layer. A Soriano was used to gently debride the tissue remaining superficial to the fascia and not violating the suture line deep and then a rongeur was used to gently remove some of the unhealthy tissue in the superficial plane. Once a gentle debridement had been performed, we re-examined the wound and there was a much more healthy wound bed at this point. Specimens were not sent as the patient was on antibiotics on the floor. We then washed the wound out gently with Pulsavac irrigation and then cleaned the wound and then applied a wound VAC to the wound, which had good seal, 125 mm of suction. We then had all the drapes removed. All counts were correct at the end of the procedure. The patient assessed for anesthesia and brought to postop recovery without complication. POSTOPERATIVE PLAN: The patient will be weightbearing as tolerated to affected left lower extremity. She has a wound VAC in place now at 125 mm of suction, probably changed every 2 days, the next change on 10/25/2021. We will follow her C-reactive protein while she is admitted and follow Infectious Disease recommendations for antibiotics. She may eventually require staged revision if there is deep infectious seeding; however, we will just continue to monitor clinical course while she is admitted to see if this is necessary. While she is on the floor, she will have postoperative physical therapy and occupational therapy. Dr. Varela was present for all critical portion of the case, made all decisions regarding the patient's care. Electronically Signed by: Kevin Varela M.D. 11/06/2021 07:21 A Kevin Varela M.D. I was present for the briscoe and critical portions and I was otherwise immediately available to assist. Date Dict: 10/23/2021/02:51 P/Ahmet Mahan MD Date Trans: 10/24/19 (more content not included)... Normal [facility] POC GLUCOSE LABon 10-23-2021 Glucose [Mass/Vol] 84 mg/dL Normal 70-100 [facility] Comment on above: Performed By: #### 8 5499 ####[facility] [place] [address], [facility] POC SARS COV2 IDon 2 SARS-CoV-2 (COVID-19) RNA VITO+probe Ql (Unsp spec) Negative Normal NEGATIVE [facility] Comment on above: Result Comment: ID Kav[facility] OW COVID-19 assay performed on the ID NOW Instrument is a rapid molecular in vitro diagnostic test utilizing an isothermal nucleic acid amplification technology intended for the qualitative detection of nucleic acid from the SARS-CoV-2 virus in direct anterior nasal (nasal), nasopharyngeal or throat swabs from individuals who are suspected of COVID-19 by their healthcare provider within the first seven days of the onset of symptoms. Testing is limited to laboratories certified under the Clinical Laboratory Improvement Amendments of 1988 (CLIA), 42 U.S.C. ???263a,that meet the requirements to perform high, moderate, or waived complexity tests. The ID NOW COVID-19 assay is also authorized for use at the Point of Care (POC), i.e., in patient care settings operating under a CLIA Certificate of Waiver, Certificate of Compliance, or Certificate of Accreditation. Performed By: #### 3 1921 ####[place] [id number] PROTHROMBIN TIMEon 2 INR Coag (PPP) [Relative time] 1.25 {INR} High 0.91-1.16 [facility] Comment on above: Order Comment: No: D o not add to previous draw Result Comment: ACCC P RECOMMENDED INR FOR WARFARIN THERAPY ------- ------- CONDITION INR PROPHYLAXIS OF VENOUS THROMBOSIS 2-3 (HIGH-RISK SURGERY) TREATMENT OF VENOUS THROMBOSIS 2-3 TREATMENT OF PULMONARY EMBOLISM 2-3 PREVENTION OF SYSTEMIC EMBOLISM: 2-3 ACUTE MYOCARDIAL INFARCTION TISSUE HEART VALVES VALVULAR HEART DISEASE ATRIAL FIBRILLATION RECURRENT SYSTEMIC EMBOLISM MECHANICAL HEART VALVE 2.5-3.5 FROM: ORAL ANTICOAGULANTS. MECHANISM OF ACTION, CLINICAL EFFECTIVENESS, AND OPTIMAL THERAPEUTIC RANGE. CHEST 1995;108:231S-246S. Performed By: #### 5 6101, 31587 ####[facility] [facility].[address] PT Coag (PPP) [Time] 15.6 s High 12.3-14.8 [facility] Comment on above: Order Comment: No: D o not add to previous draw Result Comment: ALL RESULTS MUST BE INTERPRETED WITH RESPECT TO BLOOD DRAWING ARTIFACT OR DILUTION ERROR OF ANTICOAGULANT AT THE TIME OF SAMPLING. Performed By: #### 5 6101, 22023 ####[facility] [facility].[address] RBC'S 1 UNITon 10-23-2021 CROSSMATCH INTERP 1 COMP Normal [facility] Comment on above: Performed By: #### 8 6001 ####[place] [id number] [facility].[address] PRODUCT CODE 1 E0336 Normal [facility] Comment on above: Performed By: #### 8 6001 ####[place] [id number] [facility].[address] PRODUCT STATUS 1 RE Normal [facility] Comment on above: Result Comment: Resu lt changed by IF on 10/27/2021 04:39. The previous value was XM. Performed By: #### 8 6001 ####[facility] [facility].[address] UNIT ABO 1 AB Normal [facility] Comment on above: Performed By: #### 8 6001 ####[facility] [facility].[address] UNIT ID 1 [id number] Normal [facility] Comment on above: Performed By: #### 8 6001 ####[place] [id number] [facility].[address] UNIT RH 1 Positive Normal [facility] Comment on above: Performed By: #### 8 6001 ####[facility] [facility].[address] TYPE AND SCREENon 10-23-2021 ABO INTERPRETATION AB Normal [facility] Comment on above: Performed By: #### 6 2586 ####[facility] [facility].[address] RH INTERPRETATION Positive Normal [facility] Comment on above: Performed By: #### 6 2586 ####[facility] [facility].[address] VANCOMYCIN TROUGHon 10-24-19 VANCOMYCIN TROU 8.4 mcg/mL Normal 5.0-20.0 [facility] Comment on above: Performed By: #### 0 5, 07900, [id number] ####[facility] [facility].[address] APTTon 10-22-2021 aPTT Coag (Bld) [Time] 33.0 s Normal 25.0-35.0 [facility] Comment on above: Order Comment: No: D o not add to previous draw Result Comment: ALL RESULTS MUST BE INTERPRETED WITH RESPECT TO BLOOD DRAWING ARTIFACT OR DILUTION ERROR OF ANTICOAGULANT AT THE TIME OF SAMPLING. THE APTT SHOULD NOT BE USED TO MONITOR UNFRACTIONATED HEPARIN THERAPY, THIS LABORATORY NO LONGER HAS AN ESTABLISHED THERAPEUTIC RANGE BASED ON THE APTT. IT IS RECOMMENDED THAT THE UFH - HEPARIN ASSAY (ANTI-XA ACTIVITY) BE USED FOR THIS PURPOSE. Performed By: #### 5 6101, 81405 ####[facility] [facility].[address] BASIC METABOLIC PANELon 05 Calcium [Mass/Vol] 7.7 mg/dL Low 8.6-10.3 [facility] Comment on above: Order Comment: No: D o not add to previous draw Performed By: #### 0 0071, [id number] ####[facility] [place] [address], [place] Chloride [Moles/Vol] 107 mmol/L Normal 98-107 [facility] Comment on above: Order Comment: No: D o not add to previous draw Performed By: #### 0 0071, 85101 ####[facility] [place] [address], [place] CO2 [Moles/Vol] 25 mmol/L Normal 21-31 [facility] Comment on above: Order Comment: No: D o not add to previous draw Performed By: #### 0 0071, 55023 ####[facility] [place] [address], [facility] Creatinine [Mass/Vol] 0.73 mg/dL Normal 0.60-1.20 [facility] Comment on above: Order Comment: No: D o not add to previous draw Performed By: #### 0 0071, 91552 ####[facility] [place] [address], [place] GFR/1.73 sq M.predicted among blacks MDRD (S/P/Bld) [Vol rate/Area] mL/min/{1.73_m2} Normal >60 [facility] Comment on above: Order Comment: No: D o not add to previous draw Result Comment: Calc ulation may not be valid for patients over 70 years Performed By: #### 0 0071, 54921 ####[facility] [place] [address], [place] GFR/1.73 sq M.predicted among non-blacks MDRD (S/P/Bld) [Vol rate/Area] mL/min/{1.73_m2} Normal >60 [facility] Comment on above: Order Comment: No: D o not add to previous draw Result Comment: Calc ulation may not be valid for patients over 70 years Performed By: #### 0 0071, 63202 ####[facility] Glucose [Mass/Vol] 78 mg/dL Normal 70-100 [facility] Comment on above: Order Comment: No: D o not add to previous draw Performed By: #### 0 0071, 54508 ####[facility] [place] [address], [facility] Potassium [Moles/Vol] 3.4 mmol/L Low 3.5-5.1 [facility] Comment on above: Order Comment: No: D o not add to previous draw Performed By: #### 0 0071, 15495 ####[place] [address] Sodium [Moles/Vol] 138 mmol/L Normal 136-145 [facility] Comment on above: Order Comment: No: D o not add to previous draw Performed By: #### 0 0071, 52453 ####[place] [address] Urea nitrogen [Mass/Vol] 15 mg/dL Normal 7-25 [facility] Comment on above: Order Comment: No: D o not add to previous draw Performed By: #### 0 0071, 85685 ####[place] [id number] CBC W/DIFFon 10-22-2021 ABS IMM GRANS 0.1 10*3/uL Normal 0.0-0.2 [facility] Comment on above: Order Comment: No: D o not add to previous draw Performed By: #### 5 3 ####[facility] [facility].[address] ABS NEUTROPHILS 5.0 10*3/uL Normal 1.6-7.6 [facility] Comment on above: Order Comment: No: D o not add to previous draw Performed By: #### 5 3 ####[address] [place] [address], [facility] Basophils (Bld) [#/Vol] 0.0 10*3/uL Normal 0.0-0.2 [facility] Comment on above: Order Comment: No: D o not add to previous draw Performed By: #### 5 0103 ####[facility] [place] [address], [facility] Basophils/100 WBC (Bld) 0.3 % Normal 0.0-1.0 [facility] Comment on above: Order Comment: No: D o not add to previous draw Performed By: #### 5 0103 ####[facility] [place] [address], [facility] Eosinophils (Bld) [#/Vol] 0.3 10*3/uL Normal 0.0-0.5 [facility] Comment on above: Order Comment: No: D o not add to previous draw Performed By: #### 5 0103 ####[facility] [place] [address], [facility] Eosinophils/100 WBC (Bld) 4.8 % Normal 0.0-6.0 [facility] Comment on above: Order Comment: No: D o not add to previous draw Performed By: #### 5 0103 ####[place] [id number] Erythrocyte distribution width (RBC) [Ratio] 17.8 % High 11.5-15.0 [facility] Comment on above: Order Comment: No: D o not add to previous draw Performed By: #### 5 0103 ####[facility] [place] [address], [facility] Hematocrit (Bld) [Volume fraction] 25.7 % Low 36.0-45.0 [facility] Comment on above: Order Comment: No: D o not add to previous draw Performed By: #### 5 0103 ####[facility] Hemoglobin (Bld) [Mass/Vol] 8.1 g/dL Low 12.0-15.0 [facility] Comment on above: Order Comment: No: D o not add to previous draw Performed By: #### 5 0103 ####[facility] [place] [address], [facility] IMMATURE GRANS 0.8 % Normal 0.0-1.0 [facility] Comment on above: Order Comment: No: D o not add to previous draw Performed By: #### 5 0103 ####[address] Lymphocytes (Bld) [#/Vol] 0.5 10*3/uL Low 1.2-4.0 [facility] Comment on above: Order Comment: No: D o not add to previous draw Performed By: #### 5 0103 ####[facility] [place] [address] Lymphocytes/100 WBC (Bld) 7.3 % Low 20.0-45.0 [facility] Comment on above: Order Comment: No: D o not add to previous draw Performed By: #### 5 0103 ####[address] MCH (RBC) [Entitic mass] 29.2 pg Normal 27.0-33.0 [facility] Comment on above: Order Comment: No: D o not add to previous draw Performed By: #### 5 0103 ####[facility] [place] [address], [facility] MCHC (RBC) [Mass/Vol] 31.5 g/dL Low 32.0-35.0 [facility] Comment on above: Order Comment: No: D o not add to previous draw Performed By: #### 5 0103 ####[facility] [facility].[address] MCV (RBC) [Entitic vol] 92.8 fL Normal 82.0-98.0 [facility] Comment on above: Order Comment: No: D o not add to previous draw Performed By: #### 5 0103 ####[facility] [facility] [place] [address], [facility] Monocytes (Bld) [#/Vol] 0.4 10*3/uL Normal 0.1-1.0 [facility] Comment on above: Order Comment: No: D o not add to previous draw Performed By: #### 5 0103 ####[facility] [place] [address].[address] MONOS 6.3 % Normal 5.0-12.0 [facility] Comment on above: Order Comment: No: D o not add to previous draw Performed By: #### 5 0103 ####[facility] [facility].[address] Neutrophils/100 WBC (Bld) 80.5 % High 40.0-72.0 [facility] Comment on above: Order Comment: No: D o not add to previous draw Performed By: #### 5 0103 ####[facility] [facility].[address] Nucleated RBC/100 WBC (Bld) [Ratio] 0 % Normal 0-0 [facility] Comment on above: Order Comment: No: D o not add to previous draw Performed By: #### 5 0103 ####[facility] [place] [address], [facility] PLAT CNT 310 10*3/uL Normal 150-400 [facility] Comment on above: Order Comment: No: D o not add to previous draw Performed By: #### 5 0103 ####[facility] [facility] [place] [address], [facility] RBC (Bld) [#/Vol] 2.77 10*6/uL Low 3.80-5.00 [facility] Comment on above: Order Comment: No: D o not add to previous draw Performed By: #### 5 0103 ####[facility] [place] [address], [facility] WBC (Bld) [#/Vol] 6.20 10*3/uL Normal 4.00-10.60 [facility] Comment on above: Order Comment: No: D o not add to previous draw Performed By: #### 5 0103 ####[facility] [facility].[address] MAGNESIUM BLOODon 10-22-2021 Magnesium [Mass/Vol] 2.0 mg/dL Normal 1.9-2.7 [facility] Comment on above: Order Comment: No: D o not add to previous draw Performed By: #### 0 0071, 72812 ####[facility] [facility].[address] PROTHROMBIN TIMEon INR Coag (PPP) [Relative time] 1.28 {INR} High 0.91-1.16 [facility] Comment on above: Order Comment: No: D o not add to previous draw Result Comment: ACCC P RECOMMENDED INR FOR WARFARIN THERAPY ------- ------- CONDITION INR PROPHYLAXIS OF VENOUS THROMBOSIS 2-3 (HIGH-RISK SURGERY) TREATMENT OF VENOUS THROMBOSIS 2-3 TREATMENT OF PULMONARY EMBOLISM 2-3 PREVENTION OF SYSTEMIC EMBOLISM: 2-3 ACUTE MYOCARDIAL INFARCTION TISSUE HEART VALVES VALVULAR HEART DISEASE ATRIAL FIBRILLATION RECURRENT SYSTEMIC EMBOLISM MECHANICAL HEART VALVE 2.5-3.5 FROM: ORAL ANTICOAGULANTS. MECHANISM OF ACTION, CLINICAL EFFECTIVENESS, AND OPTIMAL THERAPEUTIC RANGE. CHEST 1995;108:231S-246S. Performed By: #### 5 6101, 34550 ####[facility] [place] [address], [facility] PT Coag (PPP) [Time] 15.9 s High 12.3-14.8 [facility] Comment on above: Order Comment: No: D o not add to previous draw Result Comment: ALL RESULTS MUST BE INTERPRETED WITH RESPECT TO BLOOD DRAWING ARTIFACT OR DILUTION ERROR OF ANTICOAGULANT AT THE TIME OF SAMPLING. Performed By: #### 5 6101, 74289 ####[facility] [facility].[address] BASIC METABOLIC PANELon 05-2 Calcium [Mass/Vol] 7.8 mg/dL Low 8.6-10.3 [facility] Comment on above: Order Comment: No: D o not add to previous draw Performed By: #### 0 0071 ####[place] [address] [place] [address], [facility] Chloride [Moles/Vol] 105 mmol/L Normal 98-107 [facility] Comment on above: Order Comment: No: D o not add to previous draw Performed By: #### 0 0071 ####[place] [address] [place] [address], [facility] CO2 [Moles/Vol] 25 mmol/L Normal 21-31 [facility] Comment on above: Order Comment: No: D o not add to previous draw Performed By: #### 0 0071 ####[place] [address] [place] [address], [facility] Creatinine [Mass/Vol] 0.86 mg/dL Normal 0.60-1.20 [facility] Comment on above: Order Comment: No: D o not add to previous draw Performed By: #### 0 0071 ####[facility] [place] [address], [place] GFR/1.73 sq M.predicted among blacks MDRD (S/P/Bld) [Vol rate/Area] mL/min/{1.73_m2} Normal >60 [facility] Comment on above: Order Comment: No: D o not add to previous draw Result Comment: Calc ulation may not be valid for patients over 70 years Performed By: #### 0 0071 ####[facility] [place] [address], [place] GFR/1.73 sq M.predicted among non-blacks MDRD (S/P/Bld) [Vol rate/Area] mL/min/{1.73_m2} Normal >60 [facility] Comment on above: Order Comment: No: D o not add to previous draw Result Comment: Calc ulation may not be valid for patients over 70 years Performed By: #### 0 0071 ####[facility] [place] [address], [place] Glucose [Mass/Vol] 85 mg/dL Normal 70-100 [facility] Comment on above: Order Comment: No: D o not add to previous draw Performed By: #### 0 0071 ####[facility] [facility] [place] [address], [place] Potassium [Moles/Vol] 3.8 mmol/L Normal 3.5-5.1 [facility] Comment on above: Order Comment: No: D o not add to previous draw Performed By: #### 0 0071 ####[facility] [place] [address], [place] Sodium [Moles/Vol] 139 mmol/L Normal 136-145 [facility] Comment on above: Order Comment: No: D o not add to previous draw Performed By: #### 0 0071 ####[facility] Urea nitrogen [Mass/Vol] 20 mg/dL Normal 7-25 [facility] Comment on above: Order Comment: No: D o not add to previous draw Performed By: #### 0 0071 ####[facility] CBC COMPLETE BLOOD COUNTon 10-21-2021 Erythrocyte distribution width (RBC) [Ratio] 17.8 % High 11.5-15.0 [facility] Comment on above: Order Comment: No: D o not add to previous draw Performed By: #### 5 0608 ####[facility] Hematocrit (Bld) [Volume fraction] 28.6 % Low 36.0-45.0 [facility] Comment on above: Order Comment: No: D o not add to previous draw Performed By: #### 5 0608 ####[facility] Hemoglobin (Bld) [Mass/Vol] 8.9 g/dL Low 12.0-15.0 [facility] Comment on above: Order Comment: No: D o not add to previous draw Performed By: #### 5 0608 ####[facility] MCH (RBC) [Entitic mass] 29.1 pg Normal 27.0-33.0 [facility] Comment on above: Order Comment: No: D o not add to previous draw Performed By: #### 5 0608 ####[facility] [place] [address], [facility] MCHC (RBC) [Mass/Vol] 31.1 g/dL Low 32.0-35.0 [facility] Comment on above: Order Comment: No: D o not add to previous draw Performed By: #### 5 0608 ####[facility] [place] [address], [facility] MCV (RBC) [Entitic vol] 93.5 fL Normal 82.0-98.0 [facility] Comment on above: Order Comment: No: D o not add to previous draw Performed By: #### 5 0608 ####[facility] Nucleated RBC/100 WBC (Bld) [Ratio] 0 % Normal 0-0 [facility] Comment on above: Order Comment: No: D o not add to previous draw Performed By: #### 5 0608 ####[facility] PLAT CNT 343 10*3/uL Normal 150-400 [facility] Comment on above: Order Comment: No: D o not add to previous draw Performed By: #### 5 0608 ####[address] RBC (Bld) [#/Vol] 3.06 10*6/uL Low 3.80-5.00 [facility] Comment on above: Order Comment: No: D o not add to previous draw Performed By: #### 5 0608 ####[facility] [place] [address], [facility] WBC (Bld) [#/Vol] 9.52 10*3/uL Normal 4.00-10.60 [facility] Comment on above: Order Comment: No: D o not add to previous draw Performed By: #### 5 0608 ####[address] *BLOOD CULTUREon 10-20-2021 *BLOOD CULTURE Clinical Report: (D) Specimen: BLOOD CULTURE Collected: 10/20/2021 00:22 Status: Final Last Updated: 10/25/2021 10:49 (1) NO SITE LISTED CULT RES (Final) No Growth Day 5 Normal [facility] Comment on above: Order Comment: NO SI TE LISTED Performed By: #### 3 0313 ####[place] [id number] *WOUND CULTUREon 10-20-2021 *WOUND CULTURE Clinical Report: (D) Specimen/Source: WOUND/SURGICAL WOUND Collected: 10/19/2021 22:04 Status: Final Last Updated: 10/21/2021 11:57 (1) Yes: Add to Previous draw if able No collection time noted on specimen or requisition. The collection time recorded is the time of receipt in the lab. GRAM (Final) Rare Polys Moderate Gram Positive Cocci In Pairs Moderate Gram Positive Bacilli Few Gram Negative Bacilli ISO (Final) >100,000 Cfu/Ml Multiple species of Gram Negative and Gram Positive Darian Consistent with Enteric Darian. No Predominant Organism Isolated. The findings indicate a mixed culture and may represent colonization or contamination. Susceptibilities have not been performed. Please notify the lab within 7 days if additional workup is required. Normal [facility] Comment on above: Order Comment: Yes: Add to Previous draw if ableNo collection time noted on specimen or requisition. The collection timerecorded is the time of receipt in the lab. Performed By: #### 3 0343 ####[place] [id number] APTTon 10-20-2021 aPTT Coag (Bld) [Time] 24.9 s Low 25.0-35.0 [facility] Comment on above: Order Comment: This order is a replacement of the rejected order with accession [id number]. Result Comment: ALL RESULTS MUST BE INTERPRETED WITH RESPECT TO BLOOD DRAWING ARTIFACT OR DILUTION ERROR OF ANTICOAGULANT AT THE TIME OF SAMPLING. THE APTT SHOULD NOT BE USED TO MONITOR UNFRACTIONATED HEPARIN THERAPY, THIS LABORATORY NO LONGER HAS AN ESTABLISHED THERAPEUTIC RANGE BASED ON THE APTT. IT IS RECOMMENDED THAT THE [facility] - HEPARIN ASSAY (ANTI-XA ACTIVITY) BE USED FOR THIS PURPOSE. Performed By: #### 5 6101, 32501 ####[place] [id number] BASIC METABOLIC PANELon 05-2 Calcium [Mass/Vol] 7.7 mg/dL Low 8.6-10.3 [facility] Comment on above: Order Comment: No: D o not add to previous draw Performed By: #### 1 0070, 63325, 85163 ####[facility] [place] [address], [facility] Chloride [Moles/Vol] 103 mmol/L Normal 98-107 [facility] Comment on above: Order Comment: No: D o not add to previous draw Performed By: #### 1 0070, 51159, 18852 ####[facility] [place] [address], [facility] CO2 [Moles/Vol] 26 mmol/L Normal 21-31 [facility] Comment on above: Order Comment: No: D o not add to previous draw Performed By: #### 1 0070, 02036, 31824 ####[facility] [place] [address], [facility] Creatinine [Mass/Vol] 0.85 mg/dL Normal 0.60-1.20 [facility] Comment on above: Order Comment: No: D o not add to previous draw Performed By: #### 1 0070, 92592, 30973 ####[facility] [facility] [place] [address], [facility] GFR/1.73 sq M.predicted among blacks MDRD (S/P/Bld) [Vol rate/Area] mL/min/{1.73_m2} Normal >60 [facility] Comment on above: Order Comment: No: D o not add to previous draw Result Comment: Calc ulation may not be valid for patients over 70 years Performed By: #### 1 0070, 38660, 69954 ####[facility] [place] [address], [facility] GFR/1.73 sq M.predicted among non-blacks MDRD (S/P/Bld) [Vol rate/Area] mL/min/{1.73_m2} Normal >60 [facility] Comment on above: Order Comment: No: D o not add to previous draw Result Comment: Calc ulation may not be valid for patients over 70 years Performed By: #### 1 0070, 82867, 48689 ####[facility] [place] [address], [facility] Glucose [Mass/Vol] 79 mg/dL Normal 70-100 [facility] Comment on above: Order Comment: No: D o not add to previous draw Performed By: #### 1 0070, 66033, 83948 ####[facility] [place] [address], [facility] Potassium [Moles/Vol] 4.3 mmol/L Normal 3.5-5.1 [facility] Comment on above: Order Comment: No: D o not add to previous draw Performed By: #### 1 0070, 83427, 94362 ####[facility] [place] [address], [facility] Sodium [Moles/Vol] 137 mmol/L Normal 136-145 [facility] Comment on above: Order Comment: No: D o not add to previous draw Performed By: #### 1 0070, 31657, 65110 ####[facility] [facility] [place] [address], [facility] Urea nitrogen [Mass/Vol] 21 mg/dL Normal 7-25 [facility] Comment on above: Order Comment: No: D o not add to previous draw Performed By: #### 1 0070, 46115, 11098 ####[facility] [place] [address], [place] BNP (B-TYPE NATRIURETIC PEPT JOANNE)on 10-20-2021 Natriuretic peptide B (Bld) [Mass/Vol] 171 pg/mL High 0-100 [facility] Comment on above: Order Comment: Yes: Add to Previous draw if able Result Comment: Give n the appropriate clinical setting a BNP result of >100 pg/mL indicates congestive heart failure. Performed By: #### 8 5123 ####[facility] [place] [address] CBC COMPLETE BLOOD COUNTon 10-20-2021 Erythrocyte distribution width (RBC) [Ratio] 17.8 % High 11.5-15.0 [facility] Comment on above: Order Comment: No: D o not add to previous draw Performed By: #### 5 0608 ####[facility] Hematocrit (Bld) [Volume fraction] 28.6 % Low 36.0-45.0 [facility] Comment on above: Order Comment: No: D o not add to previous draw Performed By: #### 5 0608 ####[place] [id number] Hemoglobin (Bld) [Mass/Vol] 9.3 g/dL Low 12.0-15.0 [facility] Comment on above: Order Comment: No: D o not add to previous draw Performed By: #### 5 0608 ####[address] MCH (RBC) [Entitic mass] 29.6 pg Normal 27.0-33.0 [facility] Comment on above: Order Comment: No: D o not add to previous draw Performed By: #### 5 0608 ####[facility] [place] [address], [facility] MCHC (RBC) [Mass/Vol] 32.5 g/dL Normal 32.0-35.0 [facility] Comment on above: Order Comment: No: D o not add to previous draw Performed By: #### 5 0608 ####[place] [address], [facility] MCV (RBC) [Entitic vol] 91.1 fL Normal 82.0-98.0 [facility] Comment on above: Order Comment: No: D o not add to previous draw Performed By: #### 5 0608 ####[facility] [facility].[address] Nucleated RBC/100 WBC (Bld) [Ratio] 0 % Normal 0-0 [facility] Comment on above: Order Comment: No: D o not add to previous draw Performed By: #### 5 0608 ####[facility] [place] [address], [facility] PLAT CNT 360 10*3/uL Normal 150-400 [facility] Comment on above: Order Comment: No: D o not add to previous draw Performed By: #### 5 0608 ####[facility] [place] [address], [facility] RBC (Bld) [#/Vol] 3.14 10*6/uL Low 3.80-5.00 [facility] Comment on above: Order Comment: No: D o not add to previous draw Performed By: #### 5 0608 ####[facility] [place] [address], [facility] WBC (Bld) [#/Vol] 12.09 10*3/uL High 4.00-10.60 [facility] Comment on above: Order Comment: No: D o not add to previous draw Performed By: #### 5 0608 ####[facility] [place] [address], [facility] MAGNESIUM BLOODon 10-20-2021 Magnesium [Mass/Vol] 2.0 mg/dL Normal 1.9-2.7 [facility] Comment on above: Order Comment: No: D o not add to previous draw Performed By: #### 1 0070, 08447, 91845 ####[facility] [place] [address], [facility] PHOSPHORUS BLOODon 05-28-202 2 Phosphate [Mass/Vol] 3.0 mg/dL Normal 2.5-5.0 [facility] Comment on above: Order Comment: No: D o not add to previous draw Performed By: #### 1 0070, 16915, 45026 ####[facility] [facility], [place] [address] [place] [address] POC SARS COV2 ANTIGEN NEGATI VEon 10-20-2021 POC SARS COV2 ANTIGEN NEG Negative Normal NEGATIVE [facility] Comment on above: Result Comment: Nega tive results should be treated as presumptive and confirmation with a molecular assay, if necessary, for patient management, may be performed. Negative results do not rule out SARS-CoV-2 infection and not should be used as the sole basis for treatment or patient management decisions, including infection control decisions. Negative results should be considered in the context of a patient's recent exposures, history, and the presence of clinical signs and symptoms consistent with COVID-19. The Clarity COVID-19 Antigen Rapid Test Cassette is a rapid chromatographic immunoassay intended for the qualitative detection of the nucleocapsid protein antigen from SARS-CoV-2 in direct nasopharyngeal swab (CONTRACT NEGOTIATION SPECIALIST) specimens from individuals who are suspected of COVID-19 by their healthcare provider within the first six days of symptom onset. Testing is limited to laboratories certified under the Clinical Laboratory Improvement Amendments of 1988 (CLIA), 42 U.S.C. ???263a, that meet the requirements to perform moderate complexity, high complexity, or waived tests. This test is authorized for use at the Point of Care (POC), i.e., in patient care settings operating under a CLIA Certificate of Waiver, Certificate of Compliance, or Certificate of Accreditation. Performed By: #### 3 2044 ####[facility] [facility], [place] [id number] [place] [address] PORTABLE CHEST 1 VIEWon 09-24 PORTABLE CHEST 1 VIEW [facility] Department of Radiology [address] [place] [address] Patient Name: JESSICA GONZALEZ : 1945 Sex: F Age: Race: White Pt. Location: [address] [place] [address] Patient Status: I Ordered Date: 10/20/2021 3:25:00 PM Completed Date: 10/20/2021 03:55 PM Requesting Provider: NEW RAMOS Attending Provider: DEVENDRA PRITCHARD Report Copy To: Signs & Symptoms: O2 Desaturation History: Comments: Evaluate for Pulmonary Edema Exam: PORTABLE CHEST 1 VIEW PORTABLE CHEST 1 VIEW 10/20/2021 3:55 PM CLINICAL INDICATIONS: O2 Desaturation TECHNOLOGIST COMMENTS: O2 Desaturation QUESTION FOR THE RADIOLOGIST: Evaluate for Pulmonary Edema PROTOCOL: AP(PA) view was obtained. COMPARISON: None FINDINGS: Lower lobe infiltrates. Left side worse than right. No volume loss or consolidation. Heart size stable. Vasculature stable IMPRESSION: Lower lobe infiltrates concerning for bibasilar pneumonia but edema could have a similar appearance Electronically signed: Marion Chandra. Transcribed by: [email or web address], User Resident: Electronically Signed by: MARION CHANDRA @ 10/20/2021 04:17 PM Normal [facility] Comment on above: Order Comment: Evalu ate for Pulmonary Edema PORTABLE HIP LEFT 1 OR 2 VWS WITH PELVISon 10-20-2021 PORTABLE HIP LEFT 1 OR 2 VWS WITH PELVIS [facility] Department of Radiology [address] [place] [id number] Patient Name: JESSICA GONZALEZ : 1945 Sex: F Age: Race: White Pt. Location: [facility] Patient Status: E Ordered Date: 10/19/2021 9:20:00 PM Completed Date: 10/19/2021 10:02 PM Requesting Provider: RICKI WEN Attending Provider: DARREL LUEVANO Report Copy To: Signs & Symptoms: Pain History: Comments: Infection Exam: PORTABLE HIP LEFT 1 OR 2 VWS WITH PELVIS PORTABLE HIP LEFT 1 OR 2 VWS WITH PELVIS 10/19/2021 10:02 PM CLINICAL INDICATIONS: Pain TECHNOLOGIST COMMENTS: Patient c/o left hip pain and discharge from wound. Hx of left hip surgery 5 weeks ago. QUESTION FOR THE RADIOLOGIST: Infection PROTOCOL: AP(PA) and Lateral views were obtained. COMPARISON: 09/24/2021 FINDINGS: No acute fracture. Pelvic ring is intact. Degenerative changes of the right hip joint. Status post left total hip arthroplasty. Alignment is unchanged and without evidence of complication. Trace amount of subcutaneous emphysema. IMPRESSION: * No acute findings. Approved by:Amanda De La O10/19/2021 10:08 PM. I, Jeyson Galo,have reviewed the image(s) and agree with the findings in this report. Electronically signed: Jeyson Galo. Transcribed by: [email or web address], User Resident: AMANDA BAXTER Electronically Signed by: JEYSON GALO @ 10/19/2021 10:09 PM I personally read this/these film(s) with this resident Normal [facility] Comment on above: Order Comment: Infec tion PROCALCITONINon 10-20-2021 PROCALCITONIN 0.50 ng/mL High 0.00-0.10 [facility] Comment on above: Order Comment: Yes: Add to Previous draw if able Result Comment: Susp ected Lower Respiratory Tract Infection: 0.1-0.25ng/mL- Low likelihood for bacterial infection;Antibiotics discouraged.* >0.25ng/mL- Increased likelihood bacterial infection;Antibiotics encouraged. Suspected Sepsis: Strongly consider initiating antibiotics in all unstable patients. 0.1-0.5ng/mL- Low likelihood for sepsis; Antibiotics discouraged.* >0.5ng/mL- Increased likelihood sepsis; Antibiotics encouraged. >2.0ng/mL- High risk of sepsis/septic shock; Antibiotics strongly encouraged. *Recommend retesting PCT within 6-12hours if clinically indicated and initial PCT<0.5ng/mL Performed By: #### 3 1488 ####[place] [id number] PROTHROMBIN TIMEon 2 INR Coag (PPP) [Relative time] 1.20 {INR} High 0.91-1.16 [facility] Comment on above: Order Comment: No: D o not add to previous draw Result Comment: [facility] P RECOMMENDED INR FOR WARFARIN THERAPY ------- ------- CONDITION INR PROPHYLAXIS OF VENOUS THROMBOSIS 2-3 (HIGH-RISK SURGERY) TREATMENT OF VENOUS THROMBOSIS 2-3 TREATMENT OF PULMONARY EMBOLISM 2-3 PREVENTION OF SYSTEMIC EMBOLISM: 2-3 ACUTE MYOCARDIAL INFARCTION TISSUE HEART VALVES VALVULAR HEART DISEASE ATRIAL FIBRILLATION RECURRENT SYSTEMIC EMBOLISM MECHANICAL HEART VALVE 2.5-3.5 FROM: ORAL ANTICOAGULANTS. MECHANISM OF ACTION, CLINICAL EFFECTIVENESS, AND OPTIMAL THERAPEUTIC RANGE. CHEST 1995;108:231S-246S. Performed By: #### 5 6101 ####[facility] PT Coag (PPP) [Time] 15.1 s High 12.3-14.8 [facility] Comment on above: Order Comment: No: D o not add to previous draw Result Comment: ALL RESULTS MUST BE INTERPRETED WITH RESPECT TO BLOOD DRAWING ARTIFACT OR DILUTION ERROR OF ANTICOAGULANT AT THE TIME OF SAMPLING. Performed By: #### 5 6101 ####[facility] [facility].[address] INR Coag (PPP) [Relative time] 1.13 {INR} Normal 0.91-1.16 [facility] Comment on above: Order Comment: This order is a replacement of the rejected order with accession [id number]. Result Comment: [facility] P RECOMMENDED INR FOR WARFARIN THERAPY ------- ------- CONDITION INR PROPHYLAXIS OF VENOUS THROMBOSIS 2-3 (HIGH-RISK SURGERY) TREATMENT OF VENOUS THROMBOSIS 2-3 TREATMENT OF PULMONARY EMBOLISM 2-3 PREVENTION OF SYSTEMIC EMBOLISM: 2-3 ACUTE MYOCARDIAL INFARCTION TISSUE HEART VALVES VALVULAR HEART DISEASE ATRIAL FIBRILLATION RECURRENT SYSTEMIC EMBOLISM MECHANICAL HEART VALVE 2.5-3.5 FROM: ORAL ANTICOAGULANTS. MECHANISM OF ACTION, CLINICAL EFFECTIVENESS, AND OPTIMAL THERAPEUTIC RANGE. CHEST 1995;108:231S-246S. Performed By: #### 5 6101, [address] ####[facility] PT Coag (PPP) [Time] 14.5 s Normal 12.3-14.8 [facility] Comment on above: Order Comment: This order is a replacement of the rejected order with accession [id number]. Result Comment: ALL RESULTS MUST BE INTERPRETED WITH RESPECT TO BLOOD DRAWING ARTIFACT OR DILUTION ERROR OF ANTICOAGULANT AT THE TIME OF SAMPLING. Performed By: #### 5 6101, [address] ####[place] [address] BASIC METABOLIC PANELon 05-2 Calcium [Mass/Vol] 8.3 mg/dL Low 8.6-10.3 [facility] Comment on above: Performed By: #### 0 0071 ####[facility] Chloride [Moles/Vol] 100 mmol/L Normal 98-107 [facility] Comment on above: Performed By: #### 0 0071 ####[facility] [facility].[address] CO2 [Moles/Vol] 25 mmol/L Normal 21-31 [facility] Comment on above: Performed By: #### 0 0071 ####[facility] [facility].[address] Creatinine [Mass/Vol] 1.03 mg/dL Normal 0.60-1.20 [facility] Comment on above: Performed By: #### 0 0071 ####[facility] [place] [address], [facility] eGFR- non- 52 ml/min/1.73sq m Abnormal >60 [facility] Comment on above: Result Comment: Calc ulation may not be valid for patients over 70 years Performed By: #### 0 0071 ####[facility] [place] [address], [facility] GFR/1.73 sq M.predicted among blacks MDRD (S/P/Bld) [Vol rate/Area] mL/min/{1.73_m2} Normal >60 [facility] Comment on above: Result Comment: Calc ulation may not be valid for patients over 70 years Performed By: #### 0 0071 ####[facility] [place] [address], [facility] Glucose [Mass/Vol] 92 mg/dL Normal 70-100 [facility] Comment on above: Performed By: #### 0 0071 ####[facility] [facility] [place] [address], [place] Potassium [Moles/Vol] 4.4 mmol/L Normal 3.5-5.1 [facility] Comment on above: Performed By: #### 0 0071 ####[facility] [facility] [place] [address], [place] Sodium [Moles/Vol] 136 mmol/L Normal 136-145 [facility] Comment on above: Performed By: #### 0 0071 ####[facility] [place] [address], [place] Urea nitrogen [Mass/Vol] 26 mg/dL High 7-25 [facility] Comment on above: Performed By: #### 0 0071 ####[facility] [place] [address], [place] C REACTIVE PROTEINon 05-27-2 022 CRP [Mass/Vol] 79.5 mg/L High 0.0-7.0 [facility] Comment on above: Performed By: #### 6 1405 ####[facility] [facility].[address] CBC W/DIFFon 10-19-2021 ABS IMM GRANS 0.1 10*3/uL Normal 0.0-0.2 [facility] Comment on above: Performed By: #### 5 0103, 97665 ####[facility] ABS NEUTROPHILS 8.8 10*3/uL High 1.6-7.6 [facility] Comment on above: Performed By: #### 5 010, [address] ####[place] [address] Basophils (Bld) [#/Vol] 0.0 10*3/uL Normal 0.0-0.2 [facility] Comment on above: Performed By: #### 5 010, [address] ####[place] [address] Basophils/100 WBC (Bld) 0.3 % Normal 0.0-1.0 [facility] Comment on above: Performed By: #### 5 010, 38577 ####[place] [address] [place] [address], [facility] Eosinophils (Bld) [#/Vol] 0.0 10*3/uL Normal 0.0-0.5 [facility] Comment on above: Performed By: #### 5 0103, 41985 ####[facility] [place] [address], [facility] Eosinophils/100 WBC (Bld) 0.1 % Normal 0.0-6.0 [facility] Comment on above: Performed By: #### 5 010, 47727 ####[facility] Erythrocyte distribution width (RBC) [Ratio] 18.1 % High 11.5-15.0 [facility] Comment on above: Performed By: #### 5 102, [address] ####[address] Hematocrit (Bld) [Volume fraction] 33.6 % Low 36.0-45.0 [facility] Comment on above: Performed By: #### 5 102, [address] ####[address] Hemoglobin (Bld) [Mass/Vol] 11.1 g/dL Low 12.0-15.0 [facility] Comment on above: Performed By: #### 5 102, [address]163 ####[address] IMMATURE GRANS 0.7 % Normal 0.0-1.0 [facility] Comment on above: Performed By: #### 5 102, [address]334 ####[address] Lymphocytes (Bld) [#/Vol] 0.5 10*3/uL Low 1.2-4.0 [facility] Comment on above: Performed By: #### 5 102, [address]90 ####[address] Lymphocytes/100 WBC (Bld) 4.7 % Low 20.0-45.0 [facility] Comment on above: Performed By: #### 5 102, [address] ####[address] MCH (RBC) [Entitic mass] 29.6 pg Normal 27.0-33.0 [facility] Comment on above: Performed By: #### 5 102, 93770 ####[facility] [facility].[address] MCHC (RBC) [Mass/Vol] 33.0 g/dL Normal 32.0-35.0 [facility] Comment on above: Performed By: #### 5 102, 88594 ####[facility] [facility].[address] MCV (RBC) [Entitic vol] 89.6 fL Normal 82.0-98.0 [facility] Comment on above: Performed By: #### 5 102, 89249 ####[place] [address] [facility].[address] Monocytes (Bld) [#/Vol] 0.2 10*3/uL Normal 0.1-1.0 [facility] Comment on above: Performed By: #### 5 102, 61586 ####[facility] [place] [address].[address] MONOS 2.4 % Low 5.0-12.0 [facility] Comment on above: Performed By: #### 5 102, 38781 ####[place] [address] [facility].[address] Neutrophils/100 WBC (Bld) 91.8 % High 40.0-72.0 [facility] Comment on above: Performed By: #### 5 102, 09199 ####[facility] [facility].[address] Nucleated RBC/100 WBC (Bld) [Ratio] 0 % Normal 0-0 [facility] Comment on above: Performed By: #### 5 102, 02597 ####[facility] [place] [address], [facility] PLAT CNT 361 10*3/uL Normal 150-400 [facility] Comment on above: Performed By: #### 5 0103, 56699 ####[facility] RBC (Bld) [#/Vol] 3.75 10*6/uL Low 3.80-5.00 [facility] Comment on above: Performed By: #### 5 0103, 18892 ####[facility] WBC (Bld) [#/Vol] 9.55 10*3/uL Normal 4.00-10.60 [facility] Comment on above: Performed By: #### 5 010, 38997 ####[facility] [facility].[address] PROTHROMBIN TIMEon INR CANCELED Normal 0.91-1.16 [facility] Comment on above: Order Comment: Yes: Add to Previous draw if ableDayshia in ER notified. PMW 2255. Result Comment: The released value 1.10 was canceled by [email or web address] on 10/19/2021 22:55 Performed By: #### 5 6101 ####[facility] [facility].[address] PROTIME CANCELED Normal 12.3-14.8 [facility] Comment on above: Order Comment: Yes: Add to Previous draw if ableDayshia in ER notified. PMW 2255. Result Comment: The released value 14.2 was canceled by [email or web address] on 10/19/2021 22:55 Performed By: #### 5 6101 ####[facility] SEDIMENTATION RATEon 022 SED RATE 61 mm/hr High 0-20 [facility] Comment on above: Performed By: #### 5 102, 96569 ####[facility], [place] [address] Operative Reporton 2 Operative Report MR#: [id number] I [facility] Pt. Name: Jessica Gonzalez Room #: 6AB [id number] Discharge 09/24/2021 Date: Birthdate: 1945 OPERATIVE REPORT DATE OF SURGERY: 09/24/2021 SURGEON: Kevin Varela M.D. CEREAL POPPER: 1. Angel Morales MD. 2. NAWAF Wong. ANESTHESIA: General anesthesia. ESTIMATED BLOOD LOSS: 500 mL. FLUIDS: Per Anesthesia note. COMPLICATIONS: None. SPECIMENS: Left hip routine culture anesthesia x3. PREOPERATIVE DIAGNOSES: 1. Left total hip arthroplasty dislocation. 2. 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 POSTOPERATIVE DIAGNOSES: 1. Left total hip arthroplasty dislocation. 2. 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 PROCEDURE: Left total hip arthroplasty revision. COMPONENTS: 1. Biomet Larslan size 36 inner diameter 56, G7 acetabular shell. 2. A 36 standard Larslan femoral head. INDICATION FOR PROCEDURE: A 76-year-old female who has had multiple dislocations of the left hip. She had complex history of previous periprosthetic infection and has significant laxity to the hip. I discussed with her my recommendation for revision. OPERATIVE COURSE: The patient was brought to the operating room and placed supine on the operating table. General anesthesia obtained. Bilateral lower extremities were prepped and draped sterilely. Time-out was completed. Preoperative antibiotics were confirmed and given. The start point was identified on the left hip by C-arm fluoroscopy. An incision was made on the anterior portion of the hip on the left side. I dissected down the overlying tensor fascia incised. The muscle was retracted laterally and deep fascia was perforated. The circumflex vessels identified and cauterized. The anterior portion of femoral neck region was exposed. A partial capsulectomy was performed. Some of the soft tissue and fluid was sent for routine culture and sensitivity. I inspected the joint and then dislocated out the front. I then impacted the head off the taper. It took me a little bit of time because the head got caught up in the rectus. The liner was then removed as well. I then trialed the +10 degree liner trial. There was not a lot of impingement in full external and rotation, but I still wanted to dislocate out the back. The muscle attachments of the trochanteric region were minimal and I therefore went with the constrained liner. The previous liner was placed in a retroverted position given that there was some question of the anterior instability prior and I then decided to go to freedom with the lip in the back. Face change liner was then placed. I seated it completely. I then trialed multiple neck lengths and noted the standard is most appropriate. I placed the real head on to the taper and malleted down. I relocated the hip. I confirmed that it was seated from the freedom liner. Final pictures were taken. The tensor was closed itself with #2 Quill suture. The remainder of incision was closed in layered fashion. Sterile dressing applied. At the conclusion of case, all sponge and needle, counts correct. I was present for the critical portions of this case. Electronically Signed by: Kevin Varela M.D. 10/01/2021 07:12 A Kevin Varela M.D. Date Dict: 09/24/2021/10:46 A/Kevin Varela M.D. Date Trans: 09/24/2021 10:08 P/bladimir [id number] cc: Stuart Zamora D.O. [address] [place] [id number] Normal [facility] *ANAEROBIC CULTUREon 022 *ANAEROBIC CULTURE Clinical Report: (D) Specimen/Source: TISSUE/L HIP SUP CAPSU Collected: 09/24/2021 10:31 Status: Final Last Updated: 09/29/2021 08:01 CULT RES (Final) No Anaerobes Isolated 5 Days Normal [facility] Comment on above: Performed By: #### 3 0312 ####[facility] [place] [address], [facility] *ANAEROBIC CULTURE Clinical Report: (D) Specimen/Source: FLUID/LEFT HIP Collected: 09/24/2021 10:30 Status: Final Last Updated: 09/29/2021 08:01 CULT RES (Final) No Anaerobes Isolated 5 Days Normal [facility] Comment on above: Performed By: #### 3 0312 ####[facility] *ANAEROBIC CULTURE Clinical Report: (D) Specimen/Source: TISSUE/L HIP ANT CAPSU Collected: 09/24/2021 10:30 Status: Final Last Updated: 09/29/2021 08:01 CULT RES (Final) No Anaerobes Isolated 5 Days Normal [facility] Comment on above: Performed By: #### 3 0312 ####[facility] *BODY FLUID CULTUREon 2021 *BODY FLUID CULTURE Clinical Report: (D) Specimen/Source: FLUID/INTRAOP SPEC Collected: 09/24/2021 10:30 Status: Final Last Updated: 09/29/2021 06:45 (1) 1. LEFT HIP JOINT FLUID GRAM (Final) No Polys Seen No Bacteria Seen CULT RES (Final) No Growth Day 5 Normal [facility] Comment on above: Order Comment: 1. LE FT HIP JOINT FLUID Performed By: #### 3 0318 ####[facility] *TISSUE CULTUREon 09-24-2021 *TISSUE CULTURE Clinical Report: (D) Specimen/Source: TISSUE/INTRAOP SPEC Collected: 09/24/2021 10:31 Status: Final Last Updated: 09/29/2021 06:45 (1) 3. LEFT HIP SUPERIOR CAPSULE GRAM (Final) No Polys Seen No Bacteria Seen CULT RES (Final) No Growth Day 5 Normal [facility] Comment on above: Order Comment: 3. LE FT HIP SUPERIOR CAPSULE Performed By: #### 3 0338 ####[facility] *TISSUE CULTURE Clinical Report: (D) Specimen/Source: TISSUE/INTRAOP SPEC Collected: 09/24/2021 10:30 Status: Final Last Updated: 09/29/2021 06:44 (1) 2. LEFT HIP ANTERIOR CAPSULE GRAM (Final) No Polys Seen No Bacteria Seen CULT RES (Final) No Growth Day 5 Normal [facility] Comment on above: Order Comment: 2. LE FT HIP ANTERIOR CAPSULE Performed By: #### 3 0338 ####[facility] HIP LEFT 1 OR 2 VWS WITH PEL VISon 09-24-2021 HIP LEFT 1 OR 2 VWS WITH PELVIS [facility] Department of Radiology [address] [place] [address] Patient Name: JESSICA GONZALEZ : 1945 Sex: F Age: Race: White Pt. Location: [id number] Patient Status: I Ordered Date: 09/24/2021 8:40:00 AM Completed Date: 09/24/2021 10:45 AM Requesting Provider: KEVIN VARELA Attending Provider: KEVIN VARELA Report Copy To: Signs & Symptoms: intra op c-arm left hip anterior total History: Comments: intra op c-arm left hip anterior total Exam: HIP LEFT 1 OR 2 VWS WITH PELVIS HIP LEFT 1 OR 2 VWS without PELVIS intraoperative fluoroscopy 09/24/2021 10:45 AM CLINICAL INDICATIONS: intra op c-arm left hip anterior total. Intraoperative fluoroscopy for left hip surgery. TECHNOLOGIST COMMENTS: Dr Varela used 5 seconds of fluoro time for left total hip revision carter c-arm in 0935 out 1045 QUESTION FOR THE RADIOLOGIST: intra op c-arm left hip anterior total PROTOCOL: AP(PA) and Lateral views were obtained. COMPARISON: Left hip radiographs 07/19/2021. FINDINGS: 3 AP fluoroscopic image of portions of the left hip submitted with 5 seconds fluoroscopy time utilized. Left hip arthroplasty and overlying surgical instrument noted. IMPRESSION: Intraoperative fluoroscopy for left hip surgery, please refer to operative report. Electronically signed: Ameya Cool. Transcribed by: [email or web address], User Resident: Electronically Signed by: AMEYA COOL @ 09/24/2021 01:48 PM Normal [facility] Comment on above: Order Comment: intra op c-arm left hip anterior total POC GLUCOSE LABon 09-24-2021 Glucose [Mass/Vol] 103 mg/dL High 70-100 [facility] Comment on above: Performed By: #### 8 5499 ####[facility] PORTABLE HIP LEFT 1 OR 2 VWS WITH PELVISon 09-24-2021 PORTABLE HIP LEFT 1 OR 2 VWS WITH PELVIS [facility] Department of Radiology [address] [place] [address] Patient Name: JESSICA GONZALEZ : 1945 Sex: F Age: Race: White Pt. Location: [id number] Patient Status: I Ordered Date: 09/24/2021 10:50:00 AM Completed Date: 09/24/2021 12:52 PM Requesting Provider: ANGEL MORALES Attending Provider: KEVIN VARELA Report Copy To: Signs & Symptoms: Post OP History: Comments: Hardware Evaluation, in pacu Exam: PORTABLE HIP LEFT 1 OR 2 VWS WITH PELVIS PORTABLE HIP LEFT 1 OR 2 VWS WITH PELVIS 09/24/2021 12:52 PM CLINICAL INDICATIONS: Post OP TECHNOLOGIST COMMENTS: post op Hardware Evaluation QUESTION FOR THE RADIOLOGIST: Hardware Evaluation, in pacu PROTOCOL: AP(PA) and Lateral views were obtained. COMPARISON: 07/19/2021 FINDINGS: Status post revision of total left hip arthroplasty. Satisfactory alignment of the arthroplasty without evidence for an acute fracture or loosening. Air in soft tissues consistent with recent surgery. Diffuse lumbar spine degenerative change. Severe right hip osteoarthritis. Chronic deformity of right iliac bone from prior surgery or prior trauma. 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 IMPRESSION: 1. Status post left hip arthroplasty revision. 2. Degenerative changes described. Electronically signed: Ameya Cool. Transcribed by: [email or web address], User Resident: Electronically Signed by: AMEYA COOL @ 09/24/2021 01:10 PM Normal [facility] Comment on above: Order Comment: Hardw are Evaluation, in pacu TYPE AND SCREENon 09-24-2021 ABO INTERPRETATION AB Normal [facility] Comment on above: Performed By: #### 6 [id number] ####[facility] [place] [address], [facility] RH INTERPRETATION Positive Normal [facility] Comment on above: Performed By: #### 6 [id number] ####[facility] [place] [address], [facility] HIP LEFT 1 OR 2 VWS WITH PEL VISon 07-19-2021 HIP LEFT 1 OR 2 VWS WITH PELVIS [facility] Department of Radiology [address] [place] [id number] Patient Name: JESSICA GONZALEZ : 1945 Sex: F Age: Race: White Pt. Location: Patient Status: Ordered Date: 07/19/2021 2:20:00 PM Completed Date: 07/19/2021 02:23 PM Requesting Provider: KEVIN VARELA Attending Provider: Report Copy To: STUART ZAMORA Signs & Symptoms: Z47.1 Aftercare following joint replacement surgery I10 History: Rubina Comments: Exam: HIP LEFT 1 OR 2 VWS WITH PELVIS HIP LEFT 1 OR 2 VWS WITH PELVIS 07/19/2021 2:23 PM CLINICAL INDICATIONS: Z47.1. Pain Aftercare following joint replacement surgery I10 TECHNOLOGIST COMMENTS: left hip pain surgery - 4 years ago f/u patient in a brace PROTOCOL: AP(PA) and Lateral views were obtained. COMPARISON: 06/07/2021 IMPRESSION: No recurrent dislocation is appreciated. The left total hip arthroplasty appears satisfactory in alignment. No periprosthetic fracture is observed. Atherosclerotic disease is noted. Advanced right hip DJD is noted Electronically signed: Vanessa Muro. Transcribed by: [email or web address], User Resident: Electronically Signed by: VANESSA MURO @ 07/19/2021 02:37 PM Normal [facility] Wound cultureOrdered By: Jeevan landon Wicho on 07-05-2021 Bacteria identified Aer cx Nom (Wound) Heavy Growth Corynebacterium species, not JK Abnormal [facility] Interpretation and review of laboratory results Abnormal [facility] Microscopic observation Gram stain Nom (Wound) Positive [facility] Microscopic observation Gram stain Nom (Wound) Rare WBC [facility] HIP LEFT 1 OR 2 VWS WITH PEL VISon 06-07-2021 HIP LEFT 1 OR 2 VWS WITH PELVIS [facility] Department of Radiology [address] [place] [id number] Patient Name: JESSICA GONZALEZ : 1945 Sex: F Age: Race: White Pt. Location: [id number] Patient Status: I Ordered Date: 06/07/2021 5:10:00 AM Completed Date: 06/07/2021 08:55 AM Requesting Provider: KEVIN VARELA Attending Provider: KEVIN VARELA Report Copy To: Signs & Symptoms: LEFT HIP CLOSED REDUCTION/MANIPULATION VS OPEN REDUCTION/REVISION History: Comments: LEFT HIP CLOSED REDUCTION/MANIPULATION VS OPEN REDUCTION/REVISION Exam: HIP LEFT 1 OR 2 VWS WITH PELVIS HIP LEFT 1 OR 2 VWS WITH PELVIS 06/07/2021 8:55 AM CLINICAL INDICATIONS: LEFT HIP CLOSED REDUCTION/MANIPULATION VS OPEN REDUCTION/REVISION TECHNOLOGIST COMMENTS: Dr Varela used 16 seconds of fluoro time for left hip closed reduction red c-arm in 0845 out 0855 QUESTION FOR THE RADIOLOGIST: LEFT HIP CLOSED REDUCTION/MANIPULATION VS OPEN REDUCTION/REVISION PROTOCOL: AP(PA) and Lateral views were obtained. COMPARISON: 06/06/2021 IMPRESSION: 16 seconds of fluoroscopy was provided. 2 images were obtained and document reduction of the dislocation. Please refer any questions or concerns related to the procedure to the performing service Electronically signed: Vanessa Muro. Transcribed by: [email or web address], User Resident: Electronically Signed by: VANESSA MURO @ 06/08/2021 12:09 PM Normal [facility] Comment on above: Order Comment: LEFT HIP CLOSED REDUCTION/MANIPULATION VS OPEN REDUCTION/REVISION Operative Reporton 2 Operative Report MR#: [id number] [facility] Pt. Name: Jessica Gonzalez Room #: [id number] Discharge Date: Birthdate: 1945 OPERATIVE REPORT DATE OF SURGERY: 06/07/2021 SURGEON: Kevin Varela M.D. CEREAL POPPER: MD Richy ANESTHESIA: General anesthesia. ESTIMATED BLOOD LOSS: Per anesthesia notes. COMPLICATIONS: None. SPECIMENS: None. PREOPERATIVE DIAGNOSIS: Left total hip arthroplasty dislocation. POSTOPERATIVE DIAGNOSIS: Left total hip arthroplasty dislocation. PROCEDURE: Left total hip arthroplasty closed reduction. PROCEDURE COURSE: The patient was brought to the operating room and placed supine on the operating table. MAC anesthesia was initially obtained. Then, deep sedation was obtained. She then had time-out completed and no preoperative antibiotics were indicated. The hip had longitudinal traction applied. This did not relocate the hip at this point or even get it closed. I then found that the position about 45 degrees of flexion and full adduction was acceptable in terms of mobility. I then placed traction and an external rotation force, and relocated the hip. Final pictures were taken. At the conclusion of the case, all sponge and needle counts were correct. The patient was taken to the recovery room in good condition. Electronically Signed by: Kevin Varela M.D. 06/14/2021 07:47 P Kevin Varela M.D. Date Dict: 06/07/2021/08:56 Ulices/Kevin Varela M.D. Date Trans: 06/07/2021 10:34 Ulices/bladimir [id number] cc: Stuart Zamora D.O. [address] [place] [phone] Normal [facility] POC GLUCOSE LABon 06-07-2021 Glucose [Mass/Vol] 92 mg/dL Normal 70-100 [facility] Comment on above: Performed By: #### 8 [id number] ####[facility] POC SARS COV2 IDon 2 SARS-CoV-2 (COVID-19) RNA VITO+probe Ql (Unsp spec) Negative Normal NEGATIVE [facility] Comment on above: Result Comment: ID N OW COVID-19 assay performed on the ID NOW Instrument is a rapid molecular in vitro diagnostic test utilizing an isothermal nucleic acid amplification technology intended for the qualitative detection of nucleic acid from the SARS-CoV-2 virus in direct anterior nasal (nasal), nasopharyngeal or throat swabs from individuals who are suspected of COVID-19 by their healthcare provider within the first seven days of the onset of symptoms. Testing is limited to laboratories certified under the Clinical Laboratory Improvement Amendments of 1988 (CLIA), 42 U.S.C. ???263a,that meet the requirements to perform high, moderate, or waived complexity tests. The ID NOW COVID-19 assay is also authorized for use at the Point of Care (POC), i.e., in patient care settings operating under a CLIA Certificate of Waiver, Certificate of Compliance, or Certificate of Accreditation. Performed By: #### 3 [id number] ####[facility] BASIC METABOLIC PANELon 05-26 Calcium [Mass/Vol] 8.2 mg/dL Low 8.6-10.3 [facility] Comment on above: Order Comment: No: D o not add to previous draw Performed By: #### 0 0071 ####[facility] [place] [address], [facility] Chloride [Moles/Vol] 111 mmol/L High 98-107 [facility] Comment on above: Order Comment: No: D o not add to previous draw Performed By: #### 0 0071 ####[facility] [place] [address], [facility] CO2 [Moles/Vol] 24 mmol/L Normal 21-31 [facility] Comment on above: Order Comment: No: D o not add to previous draw Performed By: #### 0 0071 ####[facility] [place] [address], [facility] Creatinine [Mass/Vol] 0.86 mg/dL Normal 0.60-1.20 [facility] Comment on above: Order Comment: No: D o not add to previous draw Performed By: #### 0 0071 ####[facility] [place] [address], [facility] GFR/1.73 sq M.predicted among blacks MDRD (S/P/Bld) [Vol rate/Area] mL/min/{1.73_m2} Normal >60 [facility] Comment on above: Order Comment: No: D o not add to previous draw Result Comment: Calc ulation may not be valid for patients over 70 years Performed By: #### 0 [id number] ####[facility] [facility] [place] [address], [facility] GFR/1.73 sq M.predicted among non-blacks MDRD (S/P/Bld) [Vol rate/Area] mL/min/{1.73_m2} Normal >60 [facility] Comment on above: Order Comment: No: D o not add to previous draw Result Comment: Calc ulation may not be valid for patients over 70 years Performed By: #### 0 0071 ####[facility] [place] [address], [place] Glucose [Mass/Vol] 85 mg/dL Normal 70-100 [facility] Comment on above: Order Comment: No: D o not add to previous draw Performed By: #### 0 0071 ####[facility] [place] [address], [place] Potassium [Moles/Vol] 4.7 mmol/L Normal 3.5-5.1 [facility] Comment on above: Order Comment: No: D o not add to previous draw Performed By: #### 0 0071 ####[facility] Sodium [Moles/Vol] 140 mmol/L Normal 136-145 [facility] Comment on above: Order Comment: No: D o not add to previous draw Performed By: #### 0 0071 ####[facility] Urea nitrogen [Mass/Vol] 24 mg/dL Normal 7-25 [facility] Comment on above: Order Comment: No: D o not add to previous draw Performed By: #### 0 0071 ####[facility] CBC COMPLETE BLOOD COUNTon 0 - Erythrocyte distribution width (RBC) [Ratio] 18.7 % High 11.5-15.0 [facility] Comment on above: Order Comment: No: D o not add to previous draw Performed By: #### 5 0608 ####[place] [id number] [address] Hematocrit (Bld) [Volume fraction] 30.1 % Low 36.0-45.0 [facility] Comment on above: Order Comment: No: D o not add to previous draw Performed By: #### 5 0608 ####[facility] Hemoglobin (Bld) [Mass/Vol] 9.5 g/dL Low 12.0-15.0 [facility] Comment on above: Order Comment: No: D o not add to previous draw Performed By: #### 5 0608 ####[facility] MCH (RBC) [Entitic mass] 29.1 pg Normal 27.0-33.0 [facility] Comment on above: Order Comment: No: D o not add to previous draw Performed By: #### 5 0608 ####[facility] MCHC (RBC) [Mass/Vol] 31.6 g/dL Low 32.0-35.0 [facility] Comment on above: Order Comment: No: D o not add to previous draw Performed By: #### 5 0608 ####[facility] MCV (RBC) [Entitic vol] 92.3 fL Normal 82.0-98.0 [facility] Comment on above: Order Comment: No: D o not add to previous draw Performed By: #### 5 0608 ####[place] [address] Nucleated RBC/100 WBC (Bld) [Ratio] 0 % Normal 0-0 [facility] Comment on above: Order Comment: No: D o not add to previous draw Performed By: #### 5 0608 ####[facility] PLAT CNT 339 10*3/uL Normal 150-400 [facility] Comment on above: Order Comment: No: D o not add to previous draw Performed By: #### 5 0608 ####[facility] [facility].[address] RBC (Bld) [#/Vol] 3.26 10*6/uL Low 3.80-5.00 [facility] Comment on above: Order Comment: No: D o not add to previous draw Performed By: #### 5 0608 ####[facility] [place] [address], [facility] WBC (Bld) [#/Vol] 8.02 10*3/uL Normal 4.00-10.60 [facility] Comment on above: Order Comment: No: D o not add to previous draw Performed By: #### 5 0608 ####[place] [address] HIP LEFT 1 OR 2 VWS WITH PEL VISon 06-06-2021 HIP LEFT 1 OR 2 VWS WITH PELVIS [facility] Department of Radiology [address] [place] [address] Patient Name: JESSICA GONZALEZ : 1945 Sex: F Age: Race: White Pt. Location: [facility] Patient Status: E Ordered Date: 06/06/2021 11:45:00 AM Completed Date: 06/06/2021 12:18 PM Requesting Provider: CHARLES LIVINGSTON Attending Provider: CHARLES LIVINGSTON Report Copy To: Signs & Symptoms: Pain History: Comments: evaluate for FX Exam: HIP LEFT 1 OR 2 VWS WITH PELVIS HIP LEFT 1 OR 2 VWS WITH PELVIS 06/06/2021 12:18 PM CLINICAL INDICATIONS: Pain TECHNOLOGIST COMMENTS: pt states she had her left hip replaced 5 years ago, hx of 3 dislocations to left hip within last month QUESTION FOR THE RADIOLOGIST: evaluate for FX PROTOCOL: AP(PA) and Lateral views were obtained. COMPARISON: 01/20/2018 Impression: 1. There is left hip prosthesis dislocation. The femoral head component is displaced superiorly and medially. I see no acute fracture. Electronically signed: Isaias Tee. Transcribed by: [email or web address], User Resident: Electronically Signed by: ISAIAS TEE @ 06/06/2021 12:24 PM Normal [facility] Comment on above: Order Comment: evalu ate for FX PORTABLE HIP LEFT 1 OR 2 VWS WITH PELVISon 06-06-2021 PORTABLE HIP LEFT 1 OR 2 VWS WITH PELVIS [facility] Department of Radiology [address] [place] [phone] Patient Name: JESSICA GONZALEZ : 1945 Sex: F Age: Race: White Pt. Location: [facility] Patient Status: E Ordered Date: 06/06/2021 1:40:00 PM Completed Date: 06/06/2021 02:30 PM Requesting Provider: CHARLY VINSON Attending Provider: CHARLES LIVINGSTON Report Copy To: Signs & Symptoms: Post Reduction History: Comments: Hardware Evaluation Exam: PORTABLE HIP LEFT 1 OR 2 VWS WITH PELVIS PORTABLE HIP LEFT 1 OR 2 VWS WITH PELVIS 06/06/2021 2:30 PM CLINICAL INDICATIONS: Post Reduction TECHNOLOGIST COMMENTS: post reduction attempt left hip check alignment of joint left hip pain QUESTION FOR THE RADIOLOGIST: Hardware Evaluation PROTOCOL: AP(PA) and Lateral views were obtained. COMPARISON: A film from earlier in the day Impression: 1. 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 Electronically signed: Isaias Tee. Transcribed by: Nohelia, User Resident: Electronically Signed by: ISAIAS TEE @ 06/06/2021 02:34 PM Normal [facility] Comment on above: Order Comment: Hardw are Evaluation PROTHROMBIN TIMEon INR Coag (PPP) [Relative time] 1.07 {INR} Normal 0.91-1.16 [facility] Comment on above: Order Comment: No: D o not add to previous draw Result Comment: ACCC P RECOMMENDED INR FOR WARFARIN THERAPY ------- ------- CONDITION INR PROPHYLAXIS OF VENOUS THROMBOSIS 2-3 (HIGH-RISK SURGERY) TREATMENT OF VENOUS THROMBOSIS 2-3 TREATMENT OF PULMONARY EMBOLISM 2-3 PREVENTION OF SYSTEMIC EMBOLISM: 2-3 ACUTE MYOCARDIAL INFARCTION TISSUE HEART VALVES VALVULAR HEART DISEASE ATRIAL FIBRILLATION RECURRENT SYSTEMIC EMBOLISM MECHANICAL HEART VALVE 2.5-3.5 FROM: ORAL ANTICOAGULANTS. MECHANISM OF ACTION, CLINICAL EFFECTIVENESS, AND OPTIMAL THERAPEUTIC RANGE. CHEST 1995;108:231S-246S. Performed By: #### 5 [id number] ####[facility] [place] [address], [facility] PT Coag (PPP) [Time] 13.9 s Normal 12.3-14.8 [facility] Comment on above: Order Comment: No: D o not add to previous draw Result Comment: ALL RESULTS MUST BE INTERPRETED WITH RESPECT TO BLOOD DRAWING ARTIFACT OR DILUTION ERROR OF ANTICOAGULANT AT THE TIME OF SAMPLING. Performed By: #### 5 [id number] ####[facility] [place] [address], [facility] TYPE AND SCREENon 06-06-2021 ABO INTERPRETATION AB Normal [facility] Comment on above: Performed By: #### 6 [id number] ####[facility] [place] [address], [facility] RH INTERPRETATION Positive Normal [facility] Comment on above: Performed By: #### 6 [id number] ####[facility] [facility] [place] [address], [facility] COVID-19, MOLECULARon 2020 SARS-CoV-2 (COVID-19) RNA VITO+probe Ql (Unsp spec) Not detected Normal Not Detected 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 [id number] SARS-CoV-2 (COVID-19) RdRp g zen VITO+probe Ql (Resp)Ordered By: Corina Hanson on 11-28-2020 Interpretation and review of laboratory results Normal [facility] SARS-CoV-2 (COVID-19) RNA VITO+probe Ql (Resp) Not detected Not Detected [facility] Basic metabolic 2000 panelOr dered By: Kendra Ingram on 11-24-2020 Anion gap [Moles/Vol] 13 mmol/L 10 - 20 mmol/L [facility] Calcium [Mass/Vol] 8.5 mg/dL 8.4 - 10. 2 mg/dL [facility] Chloride [Moles/Vol] 103 mmol/L 98 - 10 8 mmol/L [facility] Creatinine [Mass/Vol] 0.76 mg/dL 0.60 - 1.20 [facility] GFR/1.73 sq M.predicted CKD-EPI (S/P/Bld) [Vol rate/Area] 76 >=60 mL/min/1.7 3 m2 [facility] Glucose [Mass/Vol] 98 mg/dL 65 - 99 mg/dL [facility] HCO3 [Moles/Vol] 25 mmol/L 21 - 32 mmol/L [facility] Interpretation and review of laboratory results Abnormal [facility] Potassium [Moles/Vol] 4.0 mmol/L 3.5 - 5.1 mmol/L [facility] Sodium [Moles/Vol] 137 mmol/L 135 - 145 mmol/L [facility] Urea nitrogen [Mass/Vol] 16 mg/dL 8 - 25 mg/dL [facility] Urea nitrogen/Creatinine [Mass ratio] 21.1 mg/mg High [facility] CBC WITH AUTO DIFFERENTIALOr dered By: Kendra Ingram on 11-24-2020 Basophils (Bld) [#/Vol] 0.09 10*3/uL [facility] Basophils/100 WBC (Bld) 1.0 % [facility] Eosinophils (Bld) [#/Vol] 0.35 10*3/uL [facility] Eosinophils/100 WBC (Bld) 3.8 % [facility] Erythrocyte distribution width (RBC) [Entitic vol] 18.4 % High 11.6 - 14.8 % [facility] Hematocrit (Bld) [Volume fraction] 25.6 % Low 36.0 - 46.0 % [facility] Hemoglobin (Bld) [Mass/Vol] 7.8 g/dL Low 12.0 - 16.0 g/dL [facility] Immature granulocytes (Bld) [#/Vol] 0.06 10*3/uL [facility] Immature granulocytes/100 WBC (Bld) 0.70 % [facility] Interpretation and review of laboratory results Abnormal [facility] Lymphocytes (Bld) [#/Vol] 1.26 10*3/uL [facility] Lymphocytes/100 WBC (Bld) 13.8 % [facility] MCH (RBC) [Entitic mass] 29.1 pg 26.0 - 34.0 pg [facility] MCHC (RBC) [Mass/Vol] 30.5 g/dL Low 31.0 - 37.0 g/dL [facility] MCV (RBC) [Entitic vol] 95.5 fL 80.0 - 100.0 fL [facility] Monocytes (Bld) [#/Vol] 0.87 10*3/uL [facility] Monocytes/100 WBC (Bld) 9.6 % [facility] Neutrophils (Bld) [#/Vol] 6.47 10*3/uL [facility] Neutrophils/100 WBC (Bld) 71.1 % [facility] Nucleated RBC (Bld) [#/Vol] 0.00 10*3/uL [facility] Nucleated RBC/100 WBC (Bld) [Ratio] 0.0 % [facility] Platelet mean volume (Bld) [Entitic vol] 9.5 fL 9.4 - 12.4 fL [facility] Platelets (Bld) [#/Vol] 433 10*3/uL High [facility] RBC (Bld) [#/Vol] 2.68 10*6/uL Low [facility] WBC (Bld) [#/Vol] 9.10 10*3/uL [facility] Basic metabolic 2000 panelOr dered By: Kendra Ingram on 11-23-2020 Anion gap [Moles/Vol] 12 mmol/L 10 - 20 mmol/L [facility] Calcium [Mass/Vol] 8.3 mg/dL Low 8.4 - 10. 2 mg/dL [facility] Chloride [Moles/Vol] 102 mmol/L 98 - 10 8 mmol/L [facility] Creatinine [Mass/Vol] 0.78 mg/dL 0.60 - 1.20 [facility] GFR/1.73 sq M.predicted CKD-EPI (S/P/Bld) [Vol rate/Area] 74 >=60 mL/min/1.7 3 m2 [facility] Glucose [Mass/Vol] 92 mg/dL 65 - 99 mg/dL [facility] HCO3 [Moles/Vol] 26 mmol/L 21 - 32 mmol/L [facility] Interpretation and review of laboratory results Abnormal [facility] Potassium [Moles/Vol] 4.1 mmol/L 3.5 - 5.1 mmol/L [facility] Sodium [Moles/Vol] 136 mmol/L 135 - 145 mmol/L [facility] Urea nitrogen [Mass/Vol] 15 mg/dL 8 - 25 mg/dL [facility] Urea nitrogen/Creatinine [Mass ratio] 19.2 mg/mg [facility] CBC WITH AUTO DIFFERENTIALOr dered By: Kendra Ingram on 11-23-2020 Basophils (Bld) [#/Vol] 0.08 10*3/uL [facility] Basophils/100 WBC (Bld) 0.8 % [facility] Eosinophils (Bld) [#/Vol] 0.24 10*3/uL [facility] Eosinophils/100 WBC (Bld) 2.4 % [facility] Erythrocyte distribution width (RBC) [Entitic vol] 18.1 % High 11.6 - 14.8 % [facility] Hematocrit (Bld) [Volume fraction] 24.3 % Low 36.0 - 46.0 % [facility] Hemoglobin (Bld) [Mass/Vol] 7.5 g/dL Low 12.0 - 16.0 g/dL [facility] Immature granulocytes (Bld) [#/Vol] 0.06 10*3/uL [facility] Immature granulocytes/100 WBC (Bld) 0.60 % [facility] Interpretation and review of laboratory results Abnormal [facility] Lymphocytes (Bld) [#/Vol] 1.20 10*3/uL [facility] Lymphocytes/100 WBC (Bld) 11.8 % [facility] MCH (RBC) [Entitic mass] 29.2 pg 26.0 - 34.0 pg [facility] MCHC (RBC) [Mass/Vol] 30.9 g/dL Low 31.0 - 37.0 g/dL [facility] MCV (RBC) [Entitic vol] 94.6 fL 80.0 - 100.0 fL [facility] Monocytes (Bld) [#/Vol] 0.96 10*3/uL High [facility] Monocytes/100 WBC (Bld) 9.5 % [facility] Neutrophils (Bld) [#/Vol] 7.60 10*3/uL High [facility] Neutrophils/100 WBC (Bld) 74.9 % [facility] Nucleated RBC (Bld) [#/Vol] 0.00 10*3/uL [facility] Nucleated RBC/100 WBC (Bld) [Ratio] 0.0 % [facility] Platelet mean volume (Bld) [Entitic vol] 9.4 fL 9.4 - 12.4 fL [facility] Platelets (Bld) [#/Vol] 417 10*3/uL High [facility] RBC (Bld) [#/Vol] 2.57 10*6/uL Low [facility] ealth WBC (Bld) [#/Vol] 10.14 10*3/uL [facility] EKGOrdered By: Monique luciano on 11-23-2020 [facility] Basic metabolic 2000 panelOr dered By: Kendra Ingram on 11-22-2020 Anion gap [Moles/Vol] 12 mmol/L 10 - 20 mmol/L [facility] Calcium [Mass/Vol] 8.6 mg/dL 8.4 - 10. 2 mg/dL [facility] Chloride [Moles/Vol] 102 mmol/L 98 - 10 8 mmol/L [facility] Creatinine [Mass/Vol] 0.85 mg/dL 0.60 - 1.20 [facility] GFR/1.73 sq M.predicted CKD-EPI (S/P/Bld) [Vol rate/Area] 67 >=60 mL/min/1.7 3 m2 [facility] Glucose [Mass/Vol] 81 mg/dL 65 - 99 mg/dL [facility] HCO3 [Moles/Vol] 27 mmol/L 21 - 32 mmol/L [facility] Interpretation and review of laboratory results Normal [facility] Potassium [Moles/Vol] 4.3 mmol/L 3.5 - 5.1 mmol/L [facility] Sodium [Moles/Vol] 137 mmol/L 135 - 145 mmol/L [facility] Urea nitrogen [Mass/Vol] 14 mg/dL 8 - 25 mg/dL [facility] Urea nitrogen/Creatinine [Mass ratio] 16.5 mg/mg [facility] Blood type and Indirect anti body screen panel (Bld)Ordered By: Doris Jessica on 11-22-2020 ABO and Rh group Nom (Bld) Blood group AB Rh(D) positive [facility] Blood group antibody screen Ql Negative [facility] Specimen Expires 11/25/2020 23:59 EST [facility] CBC WITH AUTO DIFFERENTIALOr dered By: Kendra Ingram on 11-22-2020 Basophils (Bld) [#/Vol] 0.10 10*3/uL [facility] Basophils/100 WBC (Bld) 1.1 % [facility] Eosinophils (Bld) [#/Vol] 0.12 10*3/uL [facility] Eosinophils/100 WBC (Bld) 1.4 % [facility] Erythrocyte distribution width (RBC) [Entitic vol] 17.6 % High 11.6 - 14.8 % [facility] Hematocrit (Bld) [Volume fraction] 23.7 % Low 36.0 - 46.0 % [facility] Hemoglobin (Bld) [Mass/Vol] 7.4 g/dL Low 12.0 - 16.0 g/dL [facility] Immature granulocytes (Bld) [#/Vol] 0.04 10*3/uL [facility] Immature granulocytes/100 WBC (Bld) 0.50 % [facility] Interpretation and review of laboratory results Abnormal [facility] Lymphocytes (Bld) [#/Vol] 1.56 10*3/uL [facility] Lymphocytes/100 WBC (Bld) 17.8 % [facility] MCH (RBC) [Entitic mass] 29.4 pg 26.0 - 34.0 pg [facility] MCHC (RBC) [Mass/Vol] 31.2 g/dL 31.0 - 37.0 g/dL [facility] MCV (RBC) [Entitic vol] 94.0 fL 80.0 - 100.0 fL [facility] Monocytes (Bld) [#/Vol] 0.67 10*3/uL [facility] Monocytes/100 WBC (Bld) 7.7 % [facility] Neutrophils (Bld) [#/Vol] 6.26 10*3/uL [facility] Neutrophils/100 WBC (Bld) 71.5 % [facility] Nucleated RBC (Bld) [#/Vol] 0.00 10*3/uL [facility] Nucleated RBC/100 WBC (Bld) [Ratio] 0.0 % [facility] Platelet mean volume (Bld) [Entitic vol] 9.7 fL 9.4 - 12.4 fL [facility] Platelets (Bld) [#/Vol] 433 10*3/uL High [facility] RBC (Bld) [#/Vol] 2.52 10*6/uL Low [facility] WBC (Bld) [#/Vol] 8.75 10*3/uL [facility] eah [facility] Surgical Site Anaerobic Cult ureOrdered By: Dl Patiño on 11-22-2020 Bacteria identified Anaer cx Nom (Unsp spec) No Anaerobic Growth at 5 Days [facility] Basic metabolic 2000 panelOr dered By: Kendra Ingram on 11-21-2020 Anion gap [Moles/Vol] 14 mmol/L 10 - 20 mmol/L [facility] Calcium [Mass/Vol] 8.7 mg/dL 8.4 - 10. 2 mg/dL [facility] Chloride [Moles/Vol] 104 mmol/L 98 - 10 8 mmol/L [facility] Creatinine [Mass/Vol] 0.74 mg/dL 0.60 - 1.20 [facility] GFR/1.73 sq M.predicted CKD-EPI (S/P/Bld) [Vol rate/Area] 79 >=60 mL/min/1.7 3 m2 [facility] Glucose [Mass/Vol] 80 mg/dL 65 - 99 mg/dL [facility] HCO3 [Moles/Vol] 26 mmol/L 21 - 32 mmol/L [facility] Interpretation and review of laboratory results Abnormal [facility] Potassium [Moles/Vol] 4.2 mmol/L 3.5 - 5.1 mmol/L [facility] Sodium [Moles/Vol] 140 mmol/L 135 - 145 mmol/L [facility] Urea nitrogen [Mass/Vol] 16 mg/dL 8 - 25 mg/dL [facility] Urea nitrogen/Creatinine [Mass ratio] 21.6 mg/mg High [facility] CBC WITH AUTO DIFFERENTIALOr dered By: Kendra nIgram on 11-21-2020 Basophils (Bld) [#/Vol] 0.08 10*3/uL [facility] Basophils/100 WBC (Bld) 0.7 % [facility] Eosinophils (Bld) [#/Vol] 0.05 10*3/uL [facility] Eosinophils/100 WBC (Bld) 0.5 % [facility] Erythrocyte distribution width (RBC) [Entitic vol] 17.5 % High 11.6 - 14.8 % [facility] Hematocrit (Bld) [Volume fraction] 23.2 % Low 36.0 - 46.0 % [facility] Hemoglobin (Bld) [Mass/Vol] 7.4 g/dL Low 12.0 - 16.0 g/dL [facility] Immature granulocytes (Bld) [#/Vol] 0.06 10*3/uL [facility] Immature granulocytes/100 WBC (Bld) 0.60 % [facility] Interpretation and review of laboratory results Abnormal [facility] Lymphocytes (Bld) [#/Vol] 1.84 10*3/uL [facility] Lymphocytes/100 WBC (Bld) 17.2 % [facility] MCH (RBC) [Entitic mass] 29.2 pg 26.0 - 34.0 pg [facility] MCHC (RBC) [Mass/Vol] 31.9 g/dL 31.0 - 37.0 g/dL [facility] MCV (RBC) [Entitic vol] 91.7 fL 80.0 - 100.0 fL [facility] Monocytes (Bld) [#/Vol] 0.83 10*3/uL [facility] Monocytes/100 WBC (Bld) 7.8 % [facility] Neutrophils (Bld) [#/Vol] 7.83 10*3/uL High [facility] Neutrophils/100 WBC (Bld) 73.2 % [facility] Nucleated RBC (Bld) [#/Vol] 0.00 10*3/uL [facility] Nucleated RBC/100 WBC (Bld) [Ratio] 0.0 % [facility] Platelet mean volume (Bld) [Entitic vol] 9.9 fL 9.4 - 12.4 fL [facility] Platelets (Bld) [#/Vol] 394 10*3/uL [facility] RBC (Bld) [#/Vol] 2.53 10*6/uL Low [facility] ealth WBC (Bld) [#/Vol] 10.69 10*3/uL [facility] CT CHEST WITHOUT CONTRASTOrd ered By: Kendra Ingram on 11-21-2020 [facility] Surgical Site Aerobic Cultur eOrdered By: Dl Patiño on 11-21-2020 Bacteria identified Aer cx Nom (Unsp spec) Isolated in Broth Only Pseudomonas aeruginosa Abnormal [facility] Interpretation and review of laboratory results Abnormal [facility] Microscopic observation Gram stain Nom (Unsp spec) Rare WBC [facility] Microscopic observation Gram stain Nom (Unsp spec) Few RBC [facility] Microscopic observation Gram stain Nom (Unsp spec) No Organisms Seen [facility] Basic metabolic 2000 panelOr dered By: Kendra Ingram on 11-20-2020 Anion gap [Moles/Vol] 14 mmol/L 10 - 20 mmol/L [facility] Calcium [Mass/Vol] 8.9 mg/dL 8.4 - 10. 2 mg/dL [facility] Chloride [Moles/Vol] 103 mmol/L 98 - 10 8 mmol/L [facility] Creatinine [Mass/Vol] 0.77 mg/dL 0.60 - 1.20 [facility] GFR/1.73 sq M.predicted CKD-EPI (S/P/Bld) [Vol rate/Area] 75 >=60 mL/min/1.7 3 m2 [facility] Glucose [Mass/Vol] 92 mg/dL 65 - 99 mg/dL [facility] HCO3 [Moles/Vol] 25 mmol/L 21 - 32 mmol/L [facility] Interpretation and review of laboratory results Abnormal [facility] Potassium [Moles/Vol] 4.2 mmol/L 3.5 - 5.1 mmol/L [facility] Sodium [Moles/Vol] 138 mmol/L 135 - 145 mmol/L [facility] Urea nitrogen [Mass/Vol] 17 mg/dL 8 - 25 mg/dL [facility] Urea nitrogen/Creatinine [Mass ratio] 22.1 mg/mg High [facility] CBC WITH AUTO DIFFERENTIALOr dered By: Kendra Ingram on 11-20-2020 Basophils (Bld) [#/Vol] 0.05 10*3/uL [facility] Basophils/100 WBC (Bld) 0.4 % [facility] Eosinophils (Bld) [#/Vol] 0.01 10*3/uL [facility] Eosinophils/100 WBC (Bld) 0.1 % [facility] Erythrocyte distribution width (RBC) [Entitic vol] 17.2 % High 11.6 - 14.8 % [facility] Hematocrit (Bld) [Volume fraction] 24.0 % Low 36.0 - 46.0 % [facility] Hemoglobin (Bld) [Mass/Vol] 7.6 g/dL Low 12.0 - 16.0 g/dL [facility] Immature granulocytes (Bld) [#/Vol] 0.08 10*3/uL [facility] Immature granulocytes/100 WBC (Bld) 0.60 % [facility] Interpretation and review of laboratory results Abnormal [facility] Lymphocytes (Bld) [#/Vol] 1.52 10*3/uL [facility] Lymphocytes/100 WBC (Bld) 11.9 % [facility] MCH (RBC) [Entitic mass] 29.2 pg 26.0 - 34.0 pg [facility] MCHC (RBC) [Mass/Vol] 31.7 g/dL 31.0 - 37.0 g/dL [facility] MCV (RBC) [Entitic vol] 92.3 fL 80.0 - 100.0 fL [facility] Monocytes (Bld) [#/Vol] 0.93 10*3/uL High [facility] Monocytes/100 WBC (Bld) 7.3 % [facility] Neutrophils (Bld) [#/Vol] 10.17 10*3/uL High [facility] Neutrophils/100 WBC (Bld) 79.7 % [facility] Nucleated RBC (Bld) [#/Vol] 0.00 10*3/uL [facility] Nucleated RBC/100 WBC (Bld) [Ratio] 0.0 % [facility] Platelet mean volume (Bld) [Entitic vol] 10.1 fL 9.4 - 12.4 fL [facility] Platelets (Bld) [#/Vol] 378 10*3/uL [facility] RBC (Bld) [#/Vol] 2.60 10*6/uL Low [facility] WBC (Bld) [#/Vol] 12.76 10*3/uL High [facility] US DUPLEX VENOUS LEG LEFTon 11-20-2020 US DUPLEX VENOUS LEG LEFT Patient Info Name: JESSICA GONZALEZ Age: 75 years : 1945 Gender: Female Exam Date: 11/20/2020 10:08 AM Patient Status: Inpatient Pharmaceutical Representative: Liaz Doshi, RAMA, DAPHNIE Referring Physician: DL PATIÑO ; Attending Physician: [facility] Indications - hc of dvt Procedure Description 32196 Duplex examination using B-mode, color and spectral Doppler of extremity veins including responses to compression and other maneuvers; unilateral or limited study. Conclusions * No evidence of deep or superficial vein thrombosis in the left lower extremity and contralateral common femoral vein. * Technically difficult exam due to tissue composition. . Report Signatures Finalized by Ru Hendrix MD, MS, RPVI on 11/20/2020 01:20 PM [facility] Comment on above: Order Comment: Spoke with Dr. Ingram, she said she ordered the right but actually needed the left leg scanned. Ultrasound duplex venous leg leftOrdered By: Kendra Ingram on 11-20-2020 [facility] Basic metabolic 2000 panelOr dered By: Kendra Ingram on 11-19-2020 Anion gap [Moles/Vol] 14 mmol/L 10 - 20 mmol/L [facility] Calcium [Mass/Vol] 8.4 mg/dL 8.4 - 10. 2 mg/dL [facility] Chloride [Moles/Vol] 104 mmol/L 98 - 10 8 mmol/L [facility] Creatinine [Mass/Vol] 0.76 mg/dL 0.60 - 1.20 [facility] GFR/1.73 sq M.predicted CKD-EPI (S/P/Bld) [Vol rate/Area] 76 >=60 mL/min/1.7 3 m2 [facility] Glucose [Mass/Vol] 88 mg/dL 65 - 99 mg/dL [facility] HCO3 [Moles/Vol] 24 mmol/L 21 - 32 mmol/L [facility] Interpretation and review of laboratory results Abnormal [facility] Potassium [Moles/Vol] 4.2 mmol/L 3.5 - 5.1 mmol/L [facility] Sodium [Moles/Vol] 138 mmol/L 135 - 145 mmol/L [facility] Urea nitrogen [Mass/Vol] 20 mg/dL 8 - 25 mg/dL [facility] Urea nitrogen/Creatinine [Mass ratio] 26.3 mg/mg High [facility] CBC WITH AUTO DIFFERENTIALOr dered By: Kendra Ingram on 11-19-2020 Basophils (Bld) [#/Vol] 0.05 10*3/uL [facility] Basophils/100 WBC (Bld) 0.4 % [facility] Eosinophils (Bld) [#/Vol] 0.02 10*3/uL [facility] Eosinophils/100 WBC (Bld) 0.2 % [facility] Erythrocyte distribution width (RBC) [Entitic vol] 17.2 % High 11.6 - 14.8 % [facility] Hematocrit (Bld) [Volume fraction] 23.1 % Low 36.0 - 46.0 % [facility] Hemoglobin (Bld) [Mass/Vol] 7.3 g/dL Low 12.0 - 16.0 g/dL [facility] Immature granulocytes (Bld) [#/Vol] 0.07 10*3/uL [facility] Immature granulocytes/100 WBC (Bld) 0.60 % [facility] Interpretation and review of laboratory results Abnormal [facility] Lymphocytes (Bld) [#/Vol] 1.18 10*3/uL [facility] Lymphocytes/100 WBC (Bld) 9.4 % [facility] MCH (RBC) [Entitic mass] 29.4 pg 26.0 - 34.0 pg [facility] MCHC (RBC) [Mass/Vol] 31.6 g/dL 31.0 - 37.0 g/dL [facility] MCV (RBC) [Entitic vol] 93.1 fL 80.0 - 100.0 fL [facility] Monocytes (Bld) [#/Vol] 1.43 10*3/uL High [facility] Monocytes/100 WBC (Bld) 11.3 % [facility] Neutrophils (Bld) [#/Vol] 9.86 10*3/uL High [facility] Neutrophils/100 WBC (Bld) 78.1 % [facility] Nucleated RBC (Bld) [#/Vol] 0.00 10*3/uL [facility] Nucleated RBC/100 WBC (Bld) [Ratio] 0.0 % [facility] Platelet mean volume (Bld) [Entitic vol] 10.1 fL 9.4 - 12.4 fL [facility] Platelets (Bld) [#/Vol] 320 10*3/uL [facility] RBC (Bld) [#/Vol] 2.48 10*6/uL [facility] WBC (Bld) [#/Vol] 12.61 10*3/uL High [facility] Basic metabolic 2000 panelOr dered By: Kendra Ingram on 11-18-2020 Anion gap [Moles/Vol] 15 mmol/L 10 - 20 mmol/L [facility] Calcium [Mass/Vol] 8.3 mg/dL Low 8.4 - 10. 2 mg/dL [facility] Chloride [Moles/Vol] 105 mmol/L 98 - 10 8 mmol/L [facility] Creatinine [Mass/Vol] 0.94 mg/dL 0.60 - 1.20 [facility] GFR/1.73 sq M.predicted CKD-EPI (S/P/Bld) [Vol rate/Area] 59 Low >=60 mL/min/1.7 3 m2 [facility] Glucose [Mass/Vol] 137 mg/dL High 65 - 99 mg/dL [facility] HCO3 [Moles/Vol] 25 mmol/L 21 - 32 mmol/L [facility] Interpretation and review of laboratory results Abnormal [facility] Potassium [Moles/Vol] 3.7 mmol/L 3.5 - 5.1 mmol/L [facility] Sodium [Moles/Vol] 141 mmol/L 135 - 145 mmol/L [facility] Urea nitrogen [Mass/Vol] 19 mg/dL 8 - 25 mg/dL [facility] Urea nitrogen/Creatinine [Mass ratio] 20.2 mg/mg High [facility] CBC WITH AUTO DIFFERENTIALOr dered By: Kendra Ingram on 11-18-2020 Erythrocyte distribution width (RBC) [Entitic vol] 16.9 % High 11.6 - 14.8 % [facility] Hematocrit (Bld) [Volume fraction] 24.9 % Low 36.0 - 46.0 % [facility] Hemoglobin (Bld) [Mass/Vol] 7.9 g/dL Low 12.0 - 16.0 g/dL [facility] Interpretation and review of laboratory results Abnormal [facility] MCH (RBC) [Entitic mass] 29.0 pg 26.0 - 34.0 pg [facility] MCHC (RBC) [Mass/Vol] 31.7 g/dL 31.0 - 37.0 g/dL [facility] MCV (RBC) [Entitic vol] 91.5 fL 80.0 - 100.0 fL [facility] Platelet mean volume (Bld) [Entitic vol] 9.7 fL 9.4 - 12.4 fL [facility] Platelets (Bld) [#/Vol] 316 10*3/uL [facility] RBC (Bld) [#/Vol] 2.72 10*6/uL Low [facility]alth WBC (Bld) [#/Vol] 14.51 10*3/uL High [facility] ACT Coag (Bld)Ordered By: Dieter maharaj [facility] on 11-17-2020 [facility] APTTOrdered By: Dl riojas 11-17-2020 aPTT Coag (Bld) [Time] 27 s [facility] Basic metabolic 2000 panelOr dered By: Kendra Ingram on 11-17-2020 Anion gap [Moles/Vol] 15 mmol/L 10 - 20 mmol/L [facility] Calcium [Mass/Vol] 8.5 mg/dL 8.4 - 10. 2 mg/dL [facility] Chloride [Moles/Vol] 103 mmol/L 98 - 10 8 mmol/L [facility] Creatinine [Mass/Vol] 0.78 mg/dL 0.60 - 1.20 [facility] GFR/1.73 sq M.predicted CKD-EPI (S/P/Bld) [Vol rate/Area] 74 >=60 mL/min/1.7 3 m2 [facility] Glucose [Mass/Vol] 86 mg/dL 65 - 99 mg/dL [facility] HCO3 [Moles/Vol] 26 mmol/L 21 - 32 mmol/L [facility] Interpretation and review of laboratory results Abnormal [facility] Potassium [Moles/Vol] 3.5 mmol/L 3.5 - 5.1 mmol/L [facility] Sodium [Moles/Vol] 140 mmol/L 135 - 145 mmol/L [facility] Urea nitrogen [Mass/Vol] 20 mg/dL 8 - 25 mg/dL [facility] Urea nitrogen/Creatinine [Mass ratio] 25.6 mg/mg High [facility] Blood type and Indirect anti body screen panel (Bld)Ordered By: Doris Jessica on 11-17-2020 ABO and Rh group Nom (Bld) Blood group AB Rh(D) positive [facility] Blood group antibody screen Ql Negative [facility] Specimen Expires 11/20/2020 23:59 EST [facility] CBC WITH AUTO DIFFERENTIALOr dered By: Kendra Ingram on 11-17-2020 Basophils (Bld) [#/Vol] 0.07 10*3/uL [facility] Basophils/100 WBC (Bld) 0.8 % [facility] Eosinophils (Bld) [#/Vol] 0.03 10*3/uL [facility] Eosinophils/100 WBC (Bld) 0.3 % [facility] Erythrocyte distribution width (RBC) [Entitic vol] 15.9 % High 11.6 - 14.8 % [facility] Hematocrit (Bld) [Volume fraction] 30.2 % Low 36.0 - 46.0 % [facility] Hemoglobin (Bld) [Mass/Vol] 9.6 g/dL Low 12.0 - 16.0 g/dL [facility] Immature granulocytes (Bld) [#/Vol] 0.08 10*3/uL [facility] Immature granulocytes/100 WBC (Bld) 0.90 % [facility] Interpretation and review of laboratory results Abnormal [facility] Lymphocytes (Bld) [#/Vol] 1.29 10*3/uL [facility] Lymphocytes/100 WBC (Bld) 14.4 % [facility] MCH (RBC) [Entitic mass] 28.6 pg 26.0 - 34.0 pg [facility] MCHC (RBC) [Mass/Vol] 31.8 g/dL 31.0 - 37.0 g/dL [facility] MCV (RBC) [Entitic vol] 89.9 fL 80.0 - 100.0 fL [facility] Monocytes (Bld) [#/Vol] 0.87 10*3/uL [facility] Monocytes/100 WBC (Bld) 9.7 % [facility] Neutrophils (Bld) [#/Vol] 6.59 10*3/uL [facility] Neutrophils/100 WBC (Bld) 73.9 % [facility] Nucleated RBC (Bld) [#/Vol] 0.00 10*3/uL [facility] Nucleated RBC/100 WBC (Bld) [Ratio] 0.0 % [facility] Platelet mean volume (Bld) [Entitic vol] 9.9 fL 9.4 - 12.4 fL [facility] Platelets (Bld) [#/Vol] 390 10*3/uL [facility] RBC (Bld) [#/Vol] 3.36 10*6/uL Low [facility] ealth WBC (Bld) [#/Vol] 8.93 10*3/uL [facility] and Hematocrit pa ephraim (Bld)Ordered By: Mele Mcclure on 11-17-2020 Hematocrit (Bld) [Volume fraction] 27.4 % Low 36.0 - 46.0 % [facility] Hemoglobin (Bld) [Mass/Vol] 8.7 g/dL Low 12.0 - 16.0 g/dL [facility] Interpretation and review of laboratory results Abnormal [facility] INR Coag (PPP) [Relative keerthi e]Ordered By: Dl Patiño on 11-17-2020 Interpretation and review of laboratory results Abnormal [facility] PT Coag (PPP) [Time] 14.9 s High [facility] - Chemistry and C hemistry - challengeOrdered By: Generic [facility] on 11-17-2020 Calcium.ionized [Mass/Vol] 4.5 mg/dL 4.5 - 5.3 mg/dL [facility] Chloride [Moles/Vol] 103 mmol/L 98 - 10 8 mmol/L [facility] CO2 (Bld) [Partial pressure] 48.3 mm[Hg] High [facility] Glucose [Mass/Vol] 197 mg/dL High 65 - 99 mg/dL [facility] HCO3 (Bld) [Moles/Vol] 28.9 mmol/L High 22.0 - 26.0 mmol/L [facility] Lactate [Moles/Vol] 0.9 mmol/L 0.6 - 2. 0 mmol/L [facility] Oxygen (Bld) [Partial pressure] 205 mm[Hg] High [facility] pH (Bld) 7.39 [pH] [facility] Potassium [Moles/Vol] 3.8 mmol/L 3.5 - 5.1 mmol/L [facility] Sodium [Moles/Vol] 139 mmol/L 135 - 145 mmol/L [facility] Laboratory - Hematology and Cell countsOrdered By: Generic [facility] on 11-17-2020 Hematocrit (BldA) [Volume fraction] 21.2 % Low 36.0 - 46.0 % [facility] Hemoglobin (Bld) [Mass/Vol] 6.9 g/dL Critically low 12.0 - 16.0 g/dL [facility] POC ARTERIAL BLOOD GAS PANEL -PULM - RALSOrdered By: Generic [facility] on 11-17-2020 Base excess Calc (Bld) [Moles/Vol] 3.5 mmol/L High [facility] Breath rate setting Ventilator synchronized intermittent mandatory 0 [facility] Carboxyhemoglobin (BldA) [Mass fraction] 1.2 <=1.5 % of total Hb [facility] Inhaled oxygen concentration 0 % [facility] Interpretation and review of laboratory results Abnormal [facility] Methemoglobin (BldA) [Mass fraction] <1.0 0.0 - 2.0 % [facility] Oxyhemoglobin (BldA) [Mass fraction] 98.0 % 94.0 - 98.0 [facility] Tidal volume setting Ventilator 0 [facility] POC Activated Clotting TimeO rdered By: Malaika [facility] on 11-17-2020 ACT Coag (Bld) 209 s seconds [facility] ACT Coag (Bld) 174 s seconds [facility] PREPARE RBCOrdered By: Briseyda Morales on 11-17-2020 Blood Type Positive [facility] Blood Type Code [address] [facility] Cross Match Compatible [facility] Product Code [id number] [facility] Product ID Red Blood Cells [facility] Status Info Transfused [facility] Status Info Released [facility] Unit Number [id number] [facility] Unit Number [id number] [facility] PT/INROrdered By: Dl Patiño on 11-17-2020 INR Coag (PPP) [Relative time] 1.2 {INR} High [facility] aPTT Coag (Bld) [Time]Ordere d By: Dl Patiño on 11-17-2020 Interpretation and review of laboratory results Normal [facility] Basic metabolic 2000 panelOr dered By: Kendra Ingram on 11-16-2020 Anion gap [Moles/Vol] 13 mmol/L 10 - 20 mmol/L [facility] Calcium [Mass/Vol] 8.8 mg/dL 8.4 - 10. 2 mg/dL [facility] Chloride [Moles/Vol] 103 mmol/L 98 - 10 8 mmol/L [facility] Creatinine [Mass/Vol] 0.83 mg/dL 0.60 - 1.20 [facility] GFR/1.73 sq M.predicted CKD-EPI (S/P/Bld) [Vol rate/Area] 69 >=60 mL/min/1.7 3 m2 [facility] Glucose [Mass/Vol] 87 mg/dL 65 - 99 mg/dL [facility] HCO3 [Moles/Vol] 25 mmol/L 21 - 32 mmol/L [facility] Interpretation and review of laboratory results Normal [facility] Potassium [Moles/Vol] 4.1 mmol/L 3.5 - 5.1 mmol/L [facility] Sodium [Moles/Vol] 137 mmol/L 135 - 145 mmol/L [facility] Urea nitrogen [Mass/Vol] 14 mg/dL 8 - 25 mg/dL [facility] Urea nitrogen/Creatinine [Mass ratio] 16.9 mg/mg [facility] CBC WITH AUTO DIFFERENTIALOr dered By: Kendra Ingram on 11-16-2020 Basophils (Bld) [#/Vol] 0.09 10*3/uL [facility] Basophils/100 WBC (Bld) 0.9 % [facility] Eosinophils (Bld) [#/Vol] 0.32 10*3/uL [facility] Eosinophils/100 WBC (Bld) 3.2 % [facility] Erythrocyte distribution width (RBC) [Entitic vol] 16.0 % High 11.6 - 14.8 % [facility] Hematocrit (Bld) [Volume fraction] 33.1 % Low 36.0 - 46.0 % [facility] Hemoglobin (Bld) [Mass/Vol] 10.2 g/dL Low 12.0 - 16.0 g/dL [facility] Immature granulocytes (Bld) [#/Vol] 0.12 10*3/uL [facility] Immature granulocytes/100 WBC (Bld) 1.20 % [facility] Interpretation and review of laboratory results Abnormal [facility] Lymphocytes (Bld) [#/Vol] 1.16 10*3/uL [facility] Lymphocytes/100 WBC (Bld) 11.4 % [facility] MCH (RBC) [Entitic mass] 28.8 pg 26.0 - 34.0 pg [facility] MCHC (RBC) [Mass/Vol] 30.8 g/dL Low 31.0 - 37.0 g/dL [facility] MCV (RBC) [Entitic vol] 93.5 fL 80.0 - 100.0 fL [facility] Monocytes (Bld) [#/Vol] 1.29 10*3/uL High [facility] Monocytes/100 WBC (Bld) 12.7 % [facility] Neutrophils (Bld) [#/Vol] 7.17 10*3/uL High [facility] Neutrophils/100 WBC (Bld) 70.6 % [facility] Nucleated RBC (Bld) [#/Vol] 0.00 10*3/uL [facility] Nucleated RBC/100 WBC (Bld) [Ratio] 0.0 % [facility] Platelet mean volume (Bld) [Entitic vol] 9.4 fL 9.4 - 12.4 fL [facility] Platelets (Bld) [#/Vol] 395 10*3/uL [facility] RBC (Bld) [#/Vol] 3.54 10*6/uL Low [facility] WBC (Bld) [#/Vol] 10.15 10*3/uL [facility] Basic metabolic 2000 panelOr dered By: Kendra Ingram on 11-15-2020 Anion gap [Moles/Vol] 11 mmol/L 10 - 20 mmol/L [facility] Calcium [Mass/Vol] 8.4 mg/dL 8.4 - 10. 2 mg/dL [facility] Chloride [Moles/Vol] 102 mmol/L 98 - 10 8 mmol/L [facility] Creatinine [Mass/Vol] 0.71 mg/dL 0.60 - 1.20 [facility] GFR/1.73 sq M.predicted CKD-EPI (S/P/Bld) [Vol rate/Area] 83 >=60 mL/min/1.7 3 m2 [facility] Glucose [Mass/Vol] 88 mg/dL 65 - 99 mg/dL [facility] HCO3 [Moles/Vol] 29 mmol/L 21 - 32 mmol/L [facility] Interpretation and review of laboratory results Normal [facility] Potassium [Moles/Vol] 3.9 mmol/L 3.5 - 5.1 mmol/L [facility] Sodium [Moles/Vol] 138 mmol/L 135 - 145 mmol/L [facility] Urea nitrogen [Mass/Vol] 12 mg/dL 8 - 25 mg/dL [facility] Urea nitrogen/Creatinine [Mass ratio] 16.9 mg/mg [facility] CBC WITH AUTO DIFFERENTIALOr dered By: Kendra Ingram on 11-15-2020 Basophils (Bld) [#/Vol] 0.05 10*3/uL [facility] Basophils/100 WBC (Bld) 0.5 % [facility] Eosinophils (Bld) [#/Vol] 0.32 10*3/uL [facility] Eosinophils/100 WBC (Bld) 3.3 % [facility] Erythrocyte distribution width (RBC) [Entitic vol] 15.9 % High 11.6 - 14.8 % [facility] Hematocrit (Bld) [Volume fraction] 30.7 % Low 36.0 - 46.0 % [facility] Hemoglobin (Bld) [Mass/Vol] 9.8 g/dL Low 12.0 - 16.0 g/dL [facility] Immature granulocytes (Bld) [#/Vol] 0.12 10*3/uL [facility] Immature granulocytes/100 WBC (Bld) 1.20 % [facility] Interpretation and review of laboratory results Abnormal [facility] Lymphocytes (Bld) [#/Vol] 1.00 10*3/uL [facility] Lymphocytes/100 WBC (Bld) 10.4 % [facility] MCH (RBC) [Entitic mass] 28.9 pg 26.0 - 34.0 pg [facility] MCHC (RBC) [Mass/Vol] 31.9 g/dL 31.0 - 37.0 g/dL [facility] MCV (RBC) [Entitic vol] 90.6 fL 80.0 - 100.0 fL [facility] Monocytes (Bld) [#/Vol] 1.29 10*3/uL High [facility] Monocytes/100 WBC (Bld) 13.4 % [facility] Neutrophils (Bld) [#/Vol] 6.83 10*3/uL [facility] Neutrophils/100 WBC (Bld) 71.2 % [facility] Nucleated RBC (Bld) [#/Vol] 0.00 10*3/uL [facility] Nucleated RBC/100 WBC (Bld) [Ratio] 0.0 % [facility] Platelet mean volume (Bld) [Entitic vol] 9.2 fL Low 9.4 - 12.4 fL [facility] Platelets (Bld) [#/Vol] 375 10*3/uL [facility] RBC (Bld) [#/Vol] 3.39 10*6/uL Low [facility] WBC (Bld) [#/Vol] 9.61 10*3/uL [facility] CT CHEST WITHOUT CONTRASTon 11-15-2020 CT CHEST WITHOUT CONTRAST EXAMINATION: CT OF THE CHEST WITHOUT CONTRAST 11/15/2020 TECHNIQUE: CT of the chest was performed without the administration of intravenous contrast. Multiplanar reformatted images are provided for review. Dose modulation, iterative reconstruction, and/or weight based adjustment of the mA/kV was utilized to reduce the radiation dose to as low as reasonably achievable. COMPARISON: None. HISTORY: ORDERING SYSTEM PROVIDED HISTORY: COPD exacerbation; Cough; Shortness of breath; TECHNOLOGIST PROVIDED HISTORY: Illness/Other Acuity: Acute Reason for Exam: COPD exacerbation, Cough, Shortness of breath Type of Encounter: Initial Additional signs and symptoms: COPD exacerbation, Cough, Shortness of breath ORDERING SYSTEM PROVIDED DIAGNOSIS CODES: S81.801A Open wound of right lower extremity, initial encounter M79.89 Leg swelling N28.9 Renal insufficiency L03.116 Left leg cellulitis T81.49XA Surgical wound infection I73.9 PAD (peripheral artery disease) ([facility]) R79.89 Elevated serum creatinine M06.9 Rheumatoid arthritis, involving unspecified site, unspecified whether rheumatoid factor present ([facility]) J44.9 Chronic obstructive pulmonary disease, unspecified COPD type ([facility]) J96.00 Acute respiratory failure, unspecified whether with hypoxia or hypercapnia ([facility]) F32.9 Depression, unspecified depression type FINDINGS: Mediastinum: Heart size is normal. No pericardial effusion. Thoracic aorta is normal caliber. No thoracic adenopathy. Lungs/pleura: Trace bilateral pleural effusions. Mild dependent bilateral lower lobe atelectasis. Otherwise no acute lung consolidation. Minimal paraseptal emphysema in the lung apices. No pneumothorax. The central airways are clear. Upper Abdomen: Limited images of the upper abdomen demonstrate no acute abnormality. Soft Tissues/Bones: Surgical screw in the left glenoid. No acute fracture. No acute osseous abnormality. Large right glenohumeral joint effusion is nonspecific. Severe glenohumeral joint arthropathy is present. IMPRESSION: 1. Trace bilateral pleural effusions. Minimal dependent atelectasis. 2. Mild emphysema. 3. Large nonspecific right glenohumeral joint effusion. Severe glenohumeral joint arthropathy. 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 Type of Exam?:Unknown Additional signs and symptoms?:n ECG 12-LEADOrdered By: Yennifer Vera on 11-15-2020 Atrial Rate 72 BPM [facility] P [place] -69 degrees [facility] P-R Interval 108 ms [facility] Q-T Interval 382 ms [facility] QRS Duration 86 ms [facility] QTC Calculation (Bezet) 418 ms [facility] R [place] 31 degrees [facility] T [place] 40 degrees [facility] Ventricular Rate 72 BPM [facility] Basic metabolic 2000 panelOr dered By: Nicky Soriano on 11-14-2020 Anion gap [Moles/Vol] 12 mmol/L 10 - 20 mmol/L [facility] Calcium [Mass/Vol] 8.7 mg/dL 8.4 - 10. 2 mg/dL [facility] Chloride [Moles/Vol] 102 mmol/L 98 - 10 8 mmol/L [facility] Creatinine [Mass/Vol] 0.75 mg/dL 0.60 - 1.20 [facility] GFR/1.73 sq M.predicted CKD-EPI (S/P/Bld) [Vol rate/Area] 78 >=60 mL/min/1.7 3 m2 [facility] Glucose [Mass/Vol] 89 mg/dL 65 - 99 mg/dL [facility] HCO3 [Moles/Vol] 30 mmol/L 21 - 32 mmol/L [facility] Interpretation and review of laboratory results Normal [facility] Potassium [Moles/Vol] 4.0 mmol/L 3.5 - 5.1 mmol/L [facility] Sodium [Moles/Vol] 140 mmol/L 135 - 145 mmol/L [facility] Urea nitrogen [Mass/Vol] 11 mg/dL 8 - 25 mg/dL [facility] Urea nitrogen/Creatinine [Mass ratio] 14.7 mg/mg [facility] CBC panel Auto (Bld)Ordered By: Nicky Soriano on 11-14-2020 Erythrocyte distribution width (RBC) [Entitic vol] 15.9 % High 11.6 - 14.8 % [facility] Hematocrit (Bld) [Volume fraction] 30.7 % Low 36.0 - 46.0 % [facility] Hemoglobin (Bld) [Mass/Vol] 9.8 g/dL Low 12.0 - 16.0 g/dL [facility] Interpretation and review of laboratory results Abnormal [facility] MCH (RBC) [Entitic mass] 28.6 pg 26.0 - 34.0 pg [facility] MCHC (RBC) [Mass/Vol] 31.9 g/dL 31.0 - 37.0 g/dL [facility] MCV (RBC) [Entitic vol] 89.5 fL 80.0 - 100.0 fL [facility] Nucleated RBC (Bld) [#/Vol] 0.00 10*3/uL [facility] Nucleated RBC/100 WBC (Bld) [Ratio] 0.0 % [facility] Platelet mean volume (Bld) [Entitic vol] 9.3 fL Low 9.4 - 12.4 fL [facility] Platelets (Bld) [#/Vol] 399 10*3/uL [facility] RBC (Bld) [#/Vol] 3.43 10*6/uL Low [facility] WBC (Bld) [#/Vol] 9.23 10*3/uL [facility] eah [facility] INR Coag (PPP) [Relative keerthi e]Ordered By: Nicky Soriano on 11-14-2020 Interpretation and review of laboratory results Abnormal [facility] PT Coag (PPP) [Time] 14.6 s [facility] No Panel InformationOrdered By: Matt Ogden on 11-14-2020 [facility] PT/INROrdered By: Nicky bright on 11-14-2020 INR Coag (PPP) [Relative time] 1.2 {INR} High [facility] WOUND AEROBIC CULTUREOrdered By: Matt Ogden on 11-14-2020 Bacteria identified Aer cx Nom (Wound) Rare growth Alcaligenes faecalis ssp faecalis Abnormal [facility] Bacteria identified Aer cx Nom (Wound) Rare growth Pseudomonas aeruginosa Abnormal [facility] Bacteria identified Aer cx Nom (Wound) Heavy Growth Normal Skin Darian [facility] Interpretation and review of laboratory results Abnormal [facility] Microscopic observation Gram stain Nom (Wound) No WBC Seen [facility] Microscopic observation Gram stain Nom (Wound) Positive [facility] Wound Anaerobic CultureOrder ed By: Matt Ogden on 11-14-2020 Bacteria identified Anaer cx Nom (Wound) No Anaerobic Growth at 5 Days [facility] XR OR Angio AddOrdered By: Bayron Yanez on 11-14-2020 [facility] APTTOrdered By: Nicky Soriano on 11-13-2020 aPTT Coag (Bld) [Time] 182 s Critically high [facility] Basic metabolic 1999 panelOr dered By: Nicky Soriano on 11-13-2020 Anion gap [Moles/Vol] 13 mmol/L 10 - 20 mmol/L [facility] Calcium [Mass/Vol] 8.3 mg/dL Low 8.4 - 10. 2 mg/dL [facility] Chloride [Moles/Vol] 102 mmol/L 98 - 10 8 mmol/L [facility] Creatinine [Mass/Vol] 0.74 mg/dL 0.60 - 1.20 [facility] GFR/1.73 sq M.predicted CKD-EPI (S/P/Bld) [Vol rate/Area] 79 >=60 mL/min/1.7 3 m2 [facility] Glucose [Mass/Vol] 115 mg/dL High 65 - 99 mg/dL [facility] HCO3 [Moles/Vol] 29 mmol/L 21 - 32 mmol/L [facility] Interpretation and review of laboratory results Abnormal [facility] Potassium [Moles/Vol] 3.8 mmol/L 3.5 - 5.1 mmol/L [facility] Sodium [Moles/Vol] 140 mmol/L 135 - 145 mmol/L [facility] Urea nitrogen [Mass/Vol] 9 mg/dL 8 - 25 mg/dL [facility] Urea nitrogen/Creatinine [Mass ratio] 12.2 mg/mg [facility] Basic metabolic 1999 panelOr dered By: Jonathan Geller on 11-13-2020 Anion gap [Moles/Vol] 12 mmol/L 10 - 20 mmol/L [facility] Calcium [Mass/Vol] 8.6 mg/dL 8.4 - 10. 2 mg/dL [facility] Chloride [Moles/Vol] 102 mmol/L 98 - 10 8 mmol/L [facility] Creatinine [Mass/Vol] 0.79 mg/dL 0.60 - 1.20 [facility] GFR/1.73 sq M.predicted CKD-EPI (S/P/Bld) [Vol rate/Area] 73 >=60 mL/min/1.7 3 m2 [facility] Glucose [Mass/Vol] 88 mg/dL 65 - 99 mg/dL [facility] HCO3 [Moles/Vol] 29 mmol/L 21 - 32 mmol/L [facility] Interpretation and review of laboratory results Normal [facility] Potassium [Moles/Vol] 3.8 mmol/L 3.5 - 5.1 mmol/L [facility] Sodium [Moles/Vol] 139 mmol/L 135 - 145 mmol/L [facility] Urea nitrogen [Mass/Vol] 11 mg/dL 8 - 25 mg/dL [facility] Urea nitrogen/Creatinine [Mass ratio] 13.9 mg/mg [facility] CBC WITH AUTO DIFFERENTIALOr dered By: Jonathan Geller on 11-13-2020 Basophils (Bld) [#/Vol] 0.05 10*3/uL [facility] Basophils/100 WBC (Bld) 0.5 % [facility] Eosinophils (Bld) [#/Vol] 0.20 10*3/uL [facility] Eosinophils/100 WBC (Bld) 2.1 % [facility] Erythrocyte distribution width (RBC) [Entitic vol] 15.9 % High 11.6 - 14.8 % [facility] Hematocrit (Bld) [Volume fraction] 30.0 % Low 36.0 - 46.0 % [facility] Hemoglobin (Bld) [Mass/Vol] 9.7 g/dL Low 12.0 - 16.0 g/dL [facility] Immature granulocytes (Bld) [#/Vol] 0.16 10*3/uL [facility] Immature granulocytes/100 WBC (Bld) 1.70 % [facility] Interpretation and review of laboratory results Abnormal [facility] Lymphocytes (Bld) [#/Vol] 1.14 10*3/uL [facility] Lymphocytes/100 WBC (Bld) 12.2 % [facility] MCH (RBC) [Entitic mass] 28.7 pg 26.0 - 34.0 pg [facility] MCHC (RBC) [Mass/Vol] 32.3 g/dL 31.0 - 37.0 g/dL [facility] MCV (RBC) [Entitic vol] 88.8 fL 80.0 - 100.0 fL [facility] Monocytes (Bld) [#/Vol] 1.35 10*3/uL High [facility] Monocytes/100 WBC (Bld) 14.5 % [facility] Neutrophils (Bld) [#/Vol] 6.43 10*3/uL [facility] Neutrophils/100 WBC (Bld) 69.0 % [facility] Nucleated RBC (Bld) [#/Vol] 0.00 10*3/uL [facility] Nucleated RBC/100 WBC (Bld) [Ratio] 0.0 % [facility] Platelet mean volume (Bld) [Entitic vol] 9.5 fL 9.4 - 12.4 fL [facility] Platelets (Bld) [#/Vol] 371 10*3/uL [facility] RBC (Bld) [#/Vol] 3.38 10*6/uL Low [facility] WBC (Bld) [#/Vol] 9.33 10*3/uL [facility] CBC panel Auto (Bld)Ordered By: Nicky Soriano on 11-13-2020 Erythrocyte distribution width (RBC) [Entitic vol] 15.9 % High 11.6 - 14.8 % [facility] [facility] Hematocrit (Bld) [Volume fraction] 29.6 % Low 36.0 - 46.0 % [facility] Hemoglobin (Bld) [Mass/Vol] 9.6 g/dL Low 12.0 - 16.0 g/dL [facility] Interpretation and review of laboratory results Abnormal [facility] MCH (RBC) [Entitic mass] 28.7 pg 26.0 - 34.0 pg [facility] MCHC (RBC) [Mass/Vol] 32.4 g/dL 31.0 - 37.0 g/dL [facility] MCV (RBC) [Entitic vol] 88.6 fL 80.0 - 100.0 fL [facility] Nucleated RBC (Bld) [#/Vol] 0.00 10*3/uL [facility] Nucleated RBC/100 WBC (Bld) [Ratio] 0.0 % [facility] Platelet mean volume (Bld) [Entitic vol] 9.3 fL Low 9.4 - 12.4 fL [facility] Platelets (Bld) [#/Vol] 383 10*3/uL [facility] RBC (Bld) [#/Vol] 3.34 10*6/uL Low [facility] WBC (Bld) [#/Vol] 11.02 10*3/uL [facility] EKGOrdered By: Provider Syst em on 11-13-2020 [facility] INR Coag (PPP) [Relative keerthi e]Ordered By: Nicky Soriano on 11-13-2020 Interpretation and review of laboratory results Abnormal [facility] PT Coag (PPP) [Time] 15.2 s High [place] INR Coag (PPP) [Relative keerthi e]Ordered By: Jonathan Geller on 11-13-2020 Interpretation and review of laboratory results Normal [facility] PT Coag (PPP) [Time] 14.2 s [place] PT/INROrdered By: Nicky bright on 11-13-2020 INR Coag (PPP) [Relative time] 1.2 {INR} High [facility] PT/INROrdered By: Jonathan wu on 11-13-2020 INR Coag (PPP) [Relative time] 1.1 {INR} [facility] XR OR ANG ADDon 11-13-2020 XR OR ANG ADD This is an auto radha lized result. Please refer to patient chart for further information. further information. further information. [facility] Comment on above: Order Comment: Injur y/Trauma or Illness?:Injury/Trauma How long have you had these symptoms (acute/chronic)?:Acute Reason for exam?:PVD Type of Exam?:Initial Mechanism of injury?:STENOSIS Fluoro time in minutes:12.9 Fluoro dose in mGy?:88433 aPTT Coag (Bld) [Time]Ordere d By: Nicky Soriano on 11-13-2020 Interpretation and review of laboratory results Abnormal [facility] ABORH VERIFICATIONOrdered By : Becca Culver on 11-12-2020 ABO and Rh group Nom (Bld) Blood group AB Rh(D) positive [facility] Verification of ABORH ABO/Rh Verification [facility] Basic metabolic 2000 panelOr maximo By: Christina Cadena on 11-12-2020 Anion gap [Moles/Vol] 14 mmol/L 10 - 20 mmol/L [facility] Calcium [Mass/Vol] 8.5 mg/dL 8.4 - 10. 2 mg/dL [facility] Chloride [Moles/Vol] 103 mmol/L 98 - 10 8 mmol/L [facility] Creatinine [Mass/Vol] 0.73 mg/dL 0.60 - 1.20 [facility] GFR/1.73 sq M.predicted CKD-EPI (S/P/Bld) [Vol rate/Area] 80 >=60 mL/min/1.7 3 m2 [facility] Glucose [Mass/Vol] 96 mg/dL 65 - 99 mg/dL [facility] HCO3 [Moles/Vol] 26 mmol/L 21 - 32 mmol/L [facility] Interpretation and review of laboratory results Normal [facility] Potassium [Moles/Vol] 3.6 mmol/L 3.5 - 5.1 mmol/L [facility] Sodium [Moles/Vol] 139 mmol/L 135 - 145 mmol/L [facility] Urea nitrogen [Mass/Vol] 10 mg/dL 8 - 25 mg/dL [facility] Urea nitrogen/Creatinine [Mass ratio] 13.7 mg/mg [facility] Blood type and Indirect anti body screen panel (Bld)Ordered By: Christina Cadena on 11-12-2020 ABO and Rh group Nom (Bld) Blood group AB Rh(D) positive [facility] Blood group antibody screen Ql Negative [facility] Specimen Expires 11/15/2020 23:59 EST [facility] CBC panel Auto (Bld)Ordered By: Christina Cadena on 11-12-2020 Erythrocyte distribution width (RBC) [Entitic vol] 15.9 % High 11.6 - 14.8 % [facility] Hematocrit (Bld) [Volume fraction] 31.3 % Low 36.0 - 46.0 % [facility] Hemoglobin (Bld) [Mass/Vol] 9.8 g/dL Low 12.0 - 16.0 g/dL [facility] Interpretation and review of laboratory results Abnormal [facility] MCH (RBC) [Entitic mass] 28.9 pg 26.0 - 34.0 pg [facility] MCHC (RBC) [Mass/Vol] 31.3 g/dL 31.0 - 37.0 g/dL [facility] MCV (RBC) [Entitic vol] 92.3 fL 80.0 - 100.0 fL [facility] Nucleated RBC (Bld) [#/Vol] 0.00 10*3/uL [facility] Nucleated RBC/100 WBC (Bld) [Ratio] 0.0 % [facility] Platelet mean volume (Bld) [Entitic vol] 9.2 fL Low 9.4 - 12.4 fL [facility] Platelets (Bld) [#/Vol] 320 10*3/uL [facility] RBC (Bld) [#/Vol] 3.39 10*6/uL Low [facility] WBC (Bld) [#/Vol] 10.54 10*3/uL [facility] Glucose (Bld) [Mass/Vol]Orde red By: Malaika [facility] on 11-12-2020 Glucose [Mass/Vol] 146 mg/dL High 65 - 99 mg/dL [facility] Interpretation and review of laboratory results Abnormal [facility] Glucose [Mass/Vol] 107 mg/dL High 65 - 99 mg/dL [facility] Interpretation and review of laboratory results Abnormal [facility] INR Coag (PPP) [Relative keerthi e]Ordered By: Christina Cadena on 11-12-2020 Interpretation and review of laboratory results Normal [facility] PT Coag (PPP) [Time] 14.2 s [place] PT/INROrdered By: Christina bo on 11-12-2020 INR Coag (PPP) [Relative time] 1.1 {INR} [facility] Basic metabolic 2000 panelOr dered By: Jonathan Geller on 11-11-2020 Anion gap [Moles/Vol] 11 mmol/L 10 - 20 mmol/L [facility] Calcium [Mass/Vol] 8.3 mg/dL Low 8.4 - 10. 2 mg/dL [facility] Chloride [Moles/Vol] 106 mmol/L 98 - 10 8 mmol/L [facility] Creatinine [Mass/Vol] 0.82 mg/dL 0.60 - 1.20 [facility] GFR/1.73 sq M.predicted CKD-EPI (S/P/Bld) [Vol rate/Area] 70 >=60 mL/min/1.7 3 m2 [facility] Glucose [Mass/Vol] 91 mg/dL 65 - 99 mg/dL [facility] HCO3 [Moles/Vol] 28 mmol/L 21 - 32 mmol/L [facility] Interpretation and review of laboratory results Abnormal [facility] Potassium [Moles/Vol] 3.5 mmol/L 3.5 - 5.1 mmol/L [facility] Sodium [Moles/Vol] 141 mmol/L 135 - 145 mmol/L [facility] Urea nitrogen [Mass/Vol] 14 mg/dL 8 - 25 mg/dL [facility] Urea nitrogen/Creatinine [Mass ratio] 17.1 mg/mg [facility] CBC WITH AUTO DIFFERENTIALOr dered By: Jonathan Geller on 11-11-2020 Basophils (Bld) [#/Vol] 0.05 10*3/uL [facility] Basophils/100 WBC (Bld) 0.4 % [facility] Eosinophils (Bld) [#/Vol] 0.16 10*3/uL [facility] Eosinophils/100 WBC (Bld) 1.2 % [facility] Erythrocyte distribution width (RBC) [Entitic vol] 15.8 % High 11.6 - 14.8 % [facility] Hematocrit (Bld) [Volume fraction] 30.6 % Low 36.0 - 46.0 % [facility] Hemoglobin (Bld) [Mass/Vol] 9.5 g/dL Low 12.0 - 16.0 g/dL [facility] Immature granulocytes (Bld) [#/Vol] 0.13 10*3/uL [facility] Immature granulocytes/100 WBC (Bld) 1.00 % [facility] Interpretation and review of laboratory results Abnormal [facility] Lymphocytes (Bld) [#/Vol] 1.31 10*3/uL [facility] Lymphocytes/100 WBC (Bld) 10.1 % [facility] MCH (RBC) [Entitic mass] 28.5 pg 26.0 - 34.0 pg [facility] MCHC (RBC) [Mass/Vol] 31.0 g/dL 31.0 - 37.0 g/dL [facility] MCV (RBC) [Entitic vol] 91.9 fL 80.0 - 100.0 fL [facility] Monocytes (Bld) [#/Vol] 1.83 10*3/uL High [facility] Monocytes/100 WBC (Bld) 14.2 % [facility] Neutrophils (Bld) [#/Vol] 9.44 10*3/uL High [facility] Neutrophils/100 WBC (Bld) 73.1 % [facility] Nucleated RBC (Bld) [#/Vol] 0.00 10*3/uL [facility] Nucleated RBC/100 WBC (Bld) [Ratio] 0.0 % [facility] Platelet mean volume (Bld) [Entitic vol] 9.4 fL 9.4 - 12.4 fL [facility] Platelets (Bld) [#/Vol] 322 10*3/uL [facility] RBC (Bld) [#/Vol] 3.33 10*6/uL Low [facility] WBC (Bld) [#/Vol] 12.92 10*3/uL [facility] NM WHITE BLOOD CELL PREPOrde red By: Matt Ogden on 11-11-2020 [facility] NM WHITE BLOOD CELL SPECT CT SINGLE AREA SINGLE DAYon 11-11-2020 NM WHITE BLOOD CELL SPECT CT SINGLE AREA SINGLE DAY EXAMINATION: NUCLEAR MEDICINE WHITE BLOOD CELL IMAGING WITH SPECT/CT AND NUCLEAR MEDICINE BONE MARROW IMAGING WITH SPECT CT 11/10/2020; 11/11/2020 TECHNIQUE: Following the injection of autologous leuokocytes labeled with 672 uCI of [id number], routine scintigraphy of the bilateral knees was performed. CT SPECT imaging was performed with multiplanar fusion reformations. Limited CT was performed for attenuation and image localization purposes only. The patient was injected intravenously with 10.2 mCi of 99m-sulfur colloid. Scintigraphy of the same area was performed more than three hours later. CT SPECT imaging was performed with multiplanar fusion reformations. Limited CT was performed for attenuation in image localization purposes only. 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 Type of Encounter: Unknown Additional signs and symptoms: n ORDERING SYSTEM PROVIDED DIAGNOSIS CODES: S81.801A Open wound of right lower extremity, initial encounter M79.89 Leg swelling N28.9 Renal insufficiency L03.116 Left leg cellulitis; ORDERING SYSTEM PROVIDED HISTORY: OSTEO; TECHNOLOGIST PROVIDED HISTORY: Illness/Other Acuity: Chronic Reason for Exam: OSTEO Type of Encounter: Subsequent/Follow-up Additional signs and symptoms: N ORDERING SYSTEM PROVIDED DIAGNOSIS CODES: S81.801A Open wound of right lower extremity, initial encounter M79.89 Leg swelling N28.9 Renal insufficiency L03.116 Left leg cellulitis FINDINGS: WHITE BLOOD CELL SCAN IMAGING: There is focal radiotracer accumulation within the superficial soft tissues anterior to the knee at the site of the focal soft tissue ulceration seen on prior radiographs. This measures approximately 3.4 cm in size at the skin surface. The area of radiotracer accumulation is focused at the skin surface ulceration. There is another focal soft tissue ulceration along the posterolateral aspect of the right lower leg measuring 18 mm in size also with a focal area of radiotracer accumulation. There is another area of skin ulceration along the anterolateral aspect of the right lower leg with focal radiotracer white blood cell accumulation. There is another focal area of radiotracer accumulation posterior to the knee in the region of the popliteal fossa. This area is obscured by beam-hardening artifact but may correlate to a reactive lymph node. Posterior to the distal right lateral femoral condyle. This is of uncertain etiology although there is a pocket of a joint effusion in this region. There is chronic bone formation anterior to the tibial tuberosity in the region of the infrapatellar tendon with mild increased radiotracer accumulation that may represent osteomyelitis of the reactive bone. No abnormal foci of radiotracer accumulation within the left knee or left lower leg. BONE MARROW IMAGING: No definite evidence of abnormal radiotracer accumulation on bone marrow imaging. Limited attenuation correction CT images demonstrate multiple soft tissue ulceration anterior to the knee and throughout the right lower leg as described above. There is a right total knee arthroplasty. No periprosthetic lucency to suggest loosening. There is a right knee joint effusion. Left knee demonstrates moderate tricompartmental osteoarthritis. IMPRESSION: Multiple focal soft tissue ulcerations anterior to the knee as well as along the posterolateral and anterolateral aspects of the right lower leg with associated tagged white blood cell accumulation suggesting focal areas of cellulitis. Indeterminate focal area of white blood cell scan accumulation in the region of the posterior fossa may represent reactive popliteal lymphadenopathy. Another focal indeterminate area of white blood cell scan accumulation posterior to the lateral femoral condyle in the area of joint effusion. This is nonspecific. Right total knee arthroplasty without definitive evidence of acute infection of the prosthesis with loosening. No evidence of abnormal uptake on bone marrow imaging. Possible uptake within heterotopic bone in the region of the infrapatellar tendon on white blood cell scan imaging may represent infection of the heterotopic bone or joint (cutout). ISIDORO/kelly Workstation ID: [id number] Dictated by: MANDEEP EVANS on FriNov 11, 2020 1:22:11 PM EDT Transcribed by: YU CHENG on FriNov 11, 2020 1:33:24 PM EDT Finalized by: MANDEEP EVANS on FriNov 14, 2020 1:40:28 PM EDT [facility] Comment on above: Order Comment: Injur y/Trauma or Illness?:Illness/Other How long have you had these symptoms (acute/chronic)?:Chronic Reason for exam?:OSTEO Type of Exam?:Subsequent/Follow-up Additional signs and symptoms?:N XR CHEST PA/APon 11-11-2020 XR CHEST PA/AP EXAMINATION: ONE XRAY VIEW OF THE CHEST 11/11/2020 12:54 pm COMPARISON: None. HISTORY: ORDERING SYSTEM PROVIDED HISTORY: mild hypoxia, history of COPD; TECHNOLOGIST PROVIDED HISTORY: Illness/Other Acuity: Acute Reason for Exam: mild hypoxia, history of COPD Cancer History: unk Surgery, Radiation History: r knee Type of Encounter: Initial Additional signs and symptoms: unk ORDERING SYSTEM PROVIDED DIAGNOSIS CODES: S81.801A Open wound of right lower extremity, initial encounter M79.89 Leg swelling N28.9 Renal insufficiency L03.116 Left leg cellulitis FINDINGS: Mild pulmonary vascular congestion. There is no effusion or pneumothorax. The cardiomediastinal silhouette is without acute process. The osseous structures are without acute process. IMPRESSION: 1. Mild pulmonary vascular congestion. 2. Apparent nodular opacity projecting at the right mid lung. It is unclear if this is associated with a rib shadow or is a parenchymal finding. Recommend further evaluation with nonemergent chest CT. Workstation ID: [id number] Dictated by: EDGARDO KING on [facility] Nov 11, 2020 2:14:02 PM EDT Transcribed by: EDGARDO KING on [facility] Nov 11, 2020 2:14:02 PM EDT Finalized by: EDGARDO KING on [facility] Nov 11, 2020 2:14:02 PM EDT [facility] Comment on above: Order Comment: Injur y/Trauma or Illness?:Illness/Other How long have you had these symptoms (acute/chronic)?:Acute Reason for exam?:mild hypoxia, history of COPD History of cancer?:unk Surgeries, chemotherapy, or radiation?:r knee Type of Exam?:Initial Additional signs and symptoms?:unk XR Chest 1 ViewOrdered By: Rebecca Geller on 11-11-2020 [facility] Basic metabolic 2000 panelOr dered By: Christ Iqbal on 11-10-2020 Anion gap [Moles/Vol] 13 mmol/L 10 - 20 mmol/L [facility] Calcium [Mass/Vol] 8.3 mg/dL Low 8.4 - 10. 2 mg/dL [facility] Chloride [Moles/Vol] 102 mmol/L 98 - 10 8 mmol/L [facility] Creatinine [Mass/Vol] 1.01 mg/dL 0.60 - 1.20 [facility] GFR/1.73 sq M.predicted CKD-EPI (S/P/Bld) [Vol rate/Area] 54 Low >=60 mL/min/1.7 3 m2 [facility] Glucose [Mass/Vol] 87 mg/dL 65 - 99 mg/dL [facility] HCO3 [Moles/Vol] 27 mmol/L 21 - 32 mmol/L [facility] Interpretation and review of laboratory results Abnormal [facility] Potassium [Moles/Vol] 3.4 mmol/L Low 3.5 - 5.1 mmol/L [facility] Sodium [Moles/Vol] 139 mmol/L 135 - 145 mmol/L [facility] Urea nitrogen [Mass/Vol] 23 mg/dL 8 - 25 mg/dL [facility] Urea nitrogen/Creatinine [Mass ratio] 22.8 mg/mg High [facility] CBC panel Auto (Bld)Ordered By: Christ Iqbal on 11-10-2020 Erythrocyte distribution width (RBC) [Entitic vol] 15.6 % High 11.6 - 14.8 % [facility] Hematocrit (Bld) [Volume fraction] 30.6 % Low 36.0 - 46.0 % [facility] Hemoglobin (Bld) [Mass/Vol] 10.0 g/dL Low 12.0 - 16.0 g/dL [facility] Interpretation and review of laboratory results Abnormal [facility] MCH (RBC) [Entitic mass] 29.2 pg 26.0 - 34.0 pg [facility] MCHC (RBC) [Mass/Vol] 32.7 g/dL 31.0 - 37.0 g/dL [facility] MCV (RBC) [Entitic vol] 89.5 fL 80.0 - 100.0 fL [facility] Nucleated RBC (Bld) [#/Vol] 0.00 10*3/uL [facility] Nucleated RBC/100 WBC (Bld) [Ratio] 0.0 % [facility] Platelet mean volume (Bld) [Entitic vol] 9.7 fL 9.4 - 12.4 fL [facility] Platelets (Bld) [#/Vol] 306 10*3/uL [facility] RBC (Bld) [#/Vol] 3.42 10*6/uL Low [facility] WBC (Bld) [#/Vol] 14.61 10*3/uL High [facility] HbA1c (Bld) [Mass fraction]O rdered By: Solomon Meade on 11-10-2020 Average glucose Estimated from glycated hemoglobin (Bld) [Mass/Vol] 131 mg/dL High 74 - 114 mg/dL [facility] Interpretation and review of laboratory results Abnormal [facility] Hemoglobin [id number] By: Priya Meade on 11-10-2020 HbA1c (Bld) [Mass fraction] 6.2 % High 4.2 - 5.6 % [facility] INR Coag (PPP) [Relative keerthi e]Ordered By: Jigar Hassan on 11-10-2020 Interpretation and review of laboratory results Normal [facility] PT Coag (PPP) [Time] 14.2 s [place] Lipid 1996 panelOrdered By: Solomon Meade on 11-10-2020 Cholesterol [Mass/Vol] 122 mg/dL 100 - 199 mg/dL [facility] Cholesterol in HDL [Mass/Vol] 36 mg/dL Low 40 - 59 [facility] Cholesterol in LDL [Mass/Vol] 52 mg/dL 10 - 130 mg/dL [facility] Cholesterol non HDL [Mass/Vol] 86 mg/dL [facility] Cholesterol.total/Ch olesterol in HDL [Mass ratio] 3.4 {ratio} ratio [facility] Interpretation and review of laboratory results Abnormal [facility] Triglyceride [Mass/Vol] 169 mg/dL High 30 - 150 mg/dL [facility] PT/INROrdered By: Jigar Joshi i on 11-10-2020 INR Coag (PPP) [Relative time] 1.1 {INR} [facility] US ANKLE/BRACHIAL INDICES EX TREMITY LIMITEDon 11-10-2020 US ANKLE/BRACHIAL INDICES EXTREMITY LIMITED Patient Info Name: JESSICA GONZALEZ Age: 75 years : 1945 Gender: Female Exam Date: 11/09/2020 8:21 PM Patient Status: Emergency Pharmaceutical Representative: Sierra John, PROSPERT, RDMS, RDCS, RT Referring Physician: DL PATIÑO ; Attending Physician: AMELIE BAEZA Indications - concern for healing potential of knee ulceration Procedure Description 16271 Limited bilateral noninvasive physiologic studies of upper or lower extremity arteries with bidirectional Doppler/PVR waveform analysis at 1-2 levels. Conclusions * Right. * Right ankle brachial index is normal. 0.97. * Right toe brachial index is normal. * Left. * Left ankle brachial index indicates moderate peripheral artery disease. 0.69. * Left toe brachial index is abnormal. . Doppler Rt Posterior Tibial: Biphasic Rt Dorsalis Pedis: Biphasic Lt Posterior Tibial: Monophasic Lt Dorsalis Pedis: Monophasic PVR Rt Ankle: Diminished Lt Ankle: Diminished Rt Digit: Diminished Lt Digit: Absent Rt Brachial: 117 Rt Posterior Tibial: 121 Rt Dorsalis Pedis: 117 Rt Digit: 93 0.97 0.94 0.74 Lt Brachial: 125 Lt Posterior Tibial: 86 Lt Dorsalis Pedis: 55 0.69 0.44 . Report Signatures Finalized by Percy Yanez MD, RPVI on 11/10/2020 12:04 AM [facility] US DUPLEX ARTERIAL LEGS ALEJANDRO An 11-10-2020 DUPLEX ARTERIAL LEGS BILATERAL Patient Info Name: JESSICA GONZALEZ Age: 75 years : 1945 Gender: Female Exam Date: 11/09/2020 7:44 PM Patient Status: Emergency Pharmaceutical Representative: Grisel Nettles, RAMA, DAPHNIE Referring Physician: DL PATIÑO ; Attending Physician: AMELIE BAEZA Indications - concern for healing potential of knee ulceration Procedure Description 07741 Duplex scan of lower extremity arteries or arterial bypass grafts using B-mode, color and spectral Doppler; complete bilateral study. Conclusions * Right. * Hemodynamically significant stenosis (70 -99%) of the right mid and distal superficial femoral artery. * Left. * Hemodynamically significant stenosis (70 -99%) of the left external iliac artery and mid superficial femoral artery. * Probable occlusion of the left distal posterior tibial artery. * Tech limits. * Technically difficult exam due to patient movement, tissue composition, and vessel depth. 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 PSV 135 cm/s Right Prox Profunda PSV 63 cm/s Right Prox SFA PSV 104 cm/s Right Mid SFA PSV 294 cm/s Right Distal SFA PSV 337 cm/s Right Prox Pop A PSV 84 cm/s Right Mid Pop A PSV 50 cm/s Right Distal Pop A PSV 56 cm/s Right Prox ZEHRA PSV 76 cm/s Right Mid ZEHRA PSV 35 cm/s Right Distal ZEHRA PSV 29 cm/s Right Prox Rafael A PSV 67 cm/s Right Mid Rafael A PSV 39 cm/s Right Distal Rafael A PSV 27 cm/s Right Prox JACK MACHINE OPERATOR PSV 46 cm/s Right Mid JACK MACHINE OPERATOR PSV 57 cm/s Right Distal JACK MACHINE OPERATOR PSV 81 cm/s Right YENI 0.97 Left Arterial Measurements Name Value Left PSV Left Distal EIA PSV 260 cm/s Left Mid PAPER CONE MACHINE OPERATOR PSV 163 cm/s Left Prox Profunda PSV 111 cm/s Left Prox SFA PSV 191 cm/s Left Mid SFA PSV 683 cm/s Left Distal SFA PSV 93 cm/s Left Prox Pop A PSV 78 cm/s Left Mid Pop A PSV 75 cm/s Left Distal Pop A PSV 81 cm/s Left Prox ZEHRA PSV 127 cm/s Left Mid ZEHRA PSV 71 cm/s Left Distal ZEHRA PSV 42 cm/s Left Prox Rafael A PSV 44 cm/s Left Mid Rafael A PSV 51 cm/s Left Distal Rafael A PSV 78 cm/s Left Prox JACK MACHINE OPERATOR PSV 71 cm/s Left Mid JACK MACHINE OPERATOR PSV 85 cm/s Left Distal JACK MACHINE OPERATOR PSV 0 cm/s Left YENI 0.69 . Report Signatures Finalized by Percy Yanez MD, PRISCILLA on 11/10/2020 12:02 AM [facility] US DUPLEX ARTERIAL LEGS BILA TERALOrdered By: Matt Ogden on 11-10-2020 [facility] DUPLEX VENOUS LEG LEFTon 11-10-2020 US DUPLEX VENOUS LEG LEFT Patient Info Name: JESSICA GONZALEZ Age: 75 years : 1945 Gender: Female Exam Date: 11/09/2020 5:30 PM Patient Status: Emergency Pharmaceutical Representative: Sierra John, RVT, RDMS, RDCS, RT Referring Physician: DL PATIÑO ; Attending Physician: AMELIE BAEZA Indications - swelling, redness Procedure Description 89242 Duplex examination using B-mode, color and spectral Doppler of extremity veins including responses to compression and other maneuvers; unilateral or limited study. Conclusions * No evidence of deep or superficial vein thrombosis in the left lower extremity. . Report Signatures Finalized by Percy Yanez MD, RPJASVIR on 11/09/2020 11:33 PM [facility] US Doppler ankle/brachial in dexOrdered By: Matt Ogden on 11-10-2020 [facility] Duplex Venous Leg LEFTOrd ered By: Amelie Baeza on 11-10-2020 [facility] Basic metabolic 2000 panelOr dered By: Fernanda Nichols on 11-09-2020 Anion gap [Moles/Vol] 19 mmol/L 10 - 20 mmol/L [facility] Calcium [Mass/Vol] 9.1 mg/dL 8.4 - 10. 2 mg/dL [facility] Chloride [Moles/Vol] 100 mmol/L 98 - 10 8 mmol/L [facility] Creatinine [Mass/Vol] 1.34 mg/dL High 0.60 - 1.20 [facility] GFR/1.73 sq M.predicted CKD-EPI (S/P/Bld) [Vol rate/Area] 39 Low >=60 mL/min/1.7 3 m2 [facility] Glucose [Mass/Vol] 99 mg/dL 65 - 99 mg/dL [facility] HCO3 [Moles/Vol] 24 mmol/L 21 - 32 mmol/L [facility] Potassium [Moles/Vol] 3.6 mmol/L 3.5 - 5.1 mmol/L [facility] Sodium [Moles/Vol] 139 mmol/L 135 - 145 mmol/L [facility] Urea nitrogen [Mass/Vol] 30 mg/dL High 8 - 25 mg/dL [facility] Urea nitrogen/Creatinine [Mass ratio] 22.4 mg/mg High [facility] CBC WITH AUTO DIFFERENTIALOr dered By: Fernanda Nichols on 11-09-2020 Basophils (Bld) [#/Vol] 0.04 10*3/uL [facility] Basophils/100 WBC (Bld) 0.3 % [facility] Eosinophils (Bld) [#/Vol] 0.06 10*3/uL [facility] Eosinophils/100 WBC (Bld) 0.5 % [facility] Erythrocyte distribution width (RBC) [Entitic vol] 15.5 % High 11.6 - 14.8 % [facility] Hematocrit (Bld) [Volume fraction] 33.6 % Low 36.0 - 46.0 % [facility] Hemoglobin (Bld) [Mass/Vol] 11.4 g/dL Low 12.0 - 16.0 g/dL [facility] Immature granulocytes (Bld) [#/Vol] 0.07 10*3/uL [facility] Immature granulocytes/100 WBC (Bld) 0.50 % [facility] Interpretation and review of laboratory results Abnormal [facility] Lymphocytes (Bld) [#/Vol] 0.87 10*3/uL Low [facility] Lymphocytes/100 WBC (Bld) 6.8 % [facility] MCH (RBC) [Entitic mass] 29.7 pg 26.0 - 34.0 pg [facility] MCHC (RBC) [Mass/Vol] 33.9 g/dL 31.0 - 37.0 g/dL [facility] MCV (RBC) [Entitic vol] 87.5 fL 80.0 - 100.0 fL [facility] Monocytes (Bld) [#/Vol] 1.43 10*3/uL High [facility] Monocytes/100 WBC (Bld) 11.1 % [facility] Neutrophils (Bld) [#/Vol] 10.37 10*3/uL High [facility] Neutrophils/100 WBC (Bld) 80.8 % [facility] Nucleated RBC (Bld) [#/Vol] 0.00 10*3/uL [facility] Nucleated RBC/100 WBC (Bld) [Ratio] 0.0 % [facility] Platelet mean volume (Bld) [Entitic vol] 9.9 fL 9.4 - 12.4 fL [facility] Platelets (Bld) [#/Vol] 308 10*3/uL [facility] RBC (Bld) [#/Vol] 3.84 10*6/uL Low [facility] ealth WBC (Bld) [#/Vol] 12.84 10*3/uL [facility] COVID-19, MOLECULARon 2020 SARS-CoV-2 (COVID-19) RNA VITO+probe Ql (Unsp spec) Not detected Normal Not Detected [facility] Comment on above: Order Comment: This test was performed under the FDA's Emergency Use Authorization (EUA). Testing was performed using the Cris Farida SARS-CoV-2 RT-PCR AND Influenza A/B Nucleic Acid Test on the Farida Viky System. This test has not been approved for use in asymptomatic patients and its performance in this patient population has not been evaluated. Negative results do not rule out the presence of SARS-CoV-2, influenza A, and/or influenza B. Fact sheets for the EUA can be found at the following links: For Healthcare Providers: https://www.fda.gov/media/374913/download For Patients: https://www.fda.gov/media/576086/download Performed By: #### L [id number] #### [facility] [address], [place] [address] Elijah Maxwell M.D. [id number] CRP, InflammationOrdered By: Fernanda Nichols on 11-09-2020 CRP [Mass/Vol] 71.5 mg/L High 0.0 - 10.0 mg/L [facility] ESR Westergren method (Bld) [Velocity]Ordered By: Fernanda Nichols on 11-09-2020 ESR (Bld) [Velocity] 66 mm/h High [facility] Interpretation and review of laboratory results Abnormal [facility] NM BONE MARROW LIMITEDon NM BONE MARROW LIMITED EXAMINATION: NUCLEAR MEDICINE WHITE BLOOD CELL IMAGING WITH SPECT/CT AND NUCLEAR MEDICINE BONE MARROW IMAGING WITH SPECT CT 11/10/2020; 11/11/2020 TECHNIQUE: Following the injection of autologous leuokocytes labeled with 672 uCI of [id number], routine scintigraphy of the bilateral knees was performed. CT SPECT imaging was performed with multiplanar fusion reformations. Limited CT was performed for attenuation and image localization purposes only. The patient was injected intravenously with 10.2 mCi of 99m-sulfur colloid. Scintigraphy of the same area was performed more than three hours later. CT SPECT imaging was performed with multiplanar fusion reformations. Limited CT was performed for attenuation in image localization purposes only. 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 Type of Encounter: Unknown Additional signs and symptoms: n ORDERING SYSTEM PROVIDED DIAGNOSIS CODES: S81.801A Open wound of right lower extremity, initial encounter M79.89 Leg swelling N28.9 Renal insufficiency L03.116 Left leg cellulitis; ORDERING SYSTEM PROVIDED HISTORY: OSTEO; TECHNOLOGIST PROVIDED HISTORY: Illness/Other Acuity: Chronic Reason for Exam: OSTEO Type of Encounter: Subsequent/Follow-up Additional signs and symptoms: N ORDERING SYSTEM PROVIDED DIAGNOSIS CODES: S81.801A Open wound of right lower extremity, initial encounter M79.89 Leg swelling N28.9 Renal insufficiency L03.116 Left leg cellulitis FINDINGS: WHITE BLOOD CELL SCAN IMAGING: There is focal radiotracer accumulation within the superficial soft tissues anterior to the knee at the site of the focal soft tissue ulceration seen on prior radiographs. This measures approximately 3.4 cm in size at the skin surface. The area of radiotracer accumulation is focused at the skin surface ulceration. There is another focal soft tissue ulceration along the posterolateral aspect of the right lower leg measuring 18 mm in size also with a focal area of radiotracer accumulation. There is another area of skin ulceration along the anterolateral aspect of the right lower leg with focal radiotracer white blood cell accumulation. There is another focal area of radiotracer accumulation posterior to the knee in the region of the popliteal fossa. This area is obscured by beam-hardening artifact but may correlate to a reactive lymph node. Posterior to the distal right lateral femoral condyle. This is of uncertain etiology although there is a pocket of a joint effusion in this region. There is chronic bone formation anterior to the tibial tuberosity in the region of the infrapatellar tendon with mild increased radiotracer accumulation that may represent osteomyelitis of the reactive bone. No abnormal foci of radiotracer accumulation within the left knee or left lower leg. BONE MARROW IMAGING: No definite evidence of abnormal radiotracer accumulation on bone marrow imaging. Limited attenuation correction CT images demonstrate multiple soft tissue ulceration anterior to the knee and throughout the right lower leg as described above. There is a right total knee arthroplasty. No periprosthetic lucency to suggest loosening. There is a right knee joint effusion. Left knee demonstrates moderate tricompartmental osteoarthritis. IMPRESSION: Multiple focal soft tissue ulcerations anterior to the knee as well as along the posterolateral and anterolateral aspects of the right lower leg with associated tagged white blood cell accumulation suggesting focal areas of cellulitis. Indeterminate focal area of white blood cell scan accumulation in the region of the posterior fossa may represent reactive popliteal lymphadenopathy. Another focal indeterminate area of white blood cell scan accumulation posterior to the lateral femoral condyle in the area of joint effusion. This is nonspecific. Right total knee arthroplasty without definitive evidence of acute infection of the prosthesis with loosening. No evidence of abnormal uptake on bone marrow imaging. Possible uptake within heterotopic bone in the region of the infrapatellar tendon on white blood cell scan imaging may represent infection of the heterotopic bone or joint (cutout). 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 Please refer to patient chart for further information. further information. further information. [facility] Comment on above: Order Comment: Injur y/Trauma or Illness?:Illness/Other How long have you had these symptoms (acute/chronic)?:Unknown Reason for exam?:osteomyelitis RLE with chronic knee ulceration Type of Exam?:Unknown Additional signs and symptoms?:unknown No Panel InformationOrdered By: Fernanda Nichols on 11-09-2020 Interpretation and review of laboratory results Abnormal [facility] SARS-CoV-2 (COVID-19) RdRp g zen VITO+probe Ql (Resp)Ordered By: Fernanda Nichols on 11-09-2020 Interpretation and review of laboratory results Normal [facility] SARS-CoV-2 (COVID-19) RNA VITO+probe Ql (Resp) Not detected Not Detected [facility] XR KNEE RIGHT 2 VIEWS (STAND RUFINO)on 11-09-2020 XR KNEE RIGHT 2 VIEWS (STANDARD) EXAMINATION: TWO XRAY VIEWS OF THE RIGHT KNEE 11/09/2020 5:12 pm COMPARISON: None. HISTORY: ORDERING SYSTEM PROVIDED HISTORY: pain; TECHNOLOGIST PROVIDED HISTORY: Illness/Other Acuity: Acute Reason for Exam: pain Cancer History: unk Surgery, Radiation History: r knee Type of Encounter: Initial Additional signs and symptoms: unk FINDINGS: The patient is status post prior total right knee arthroplasty. There is no evidence of hardware failure or loosening. No acute fracture is seen. The patella appears low riding. Anterior soft tissue swelling and irregularity is present. There are diffuse vascular calcifications. IMPRESSION: 1. Changes of prior right knee arthroplasty no evidence of hardware failure or loosening. 2. Inferior position of the patella raising the possibility of quadriceps tendon injury. 3. No acute fracture. 4. Anterior soft tissue swelling and irregularity. 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 See recent nutrition assessment form on 02/13/17 when pt discussed nutrition and wound healing with hospital RD. Normal [facility] Coding Summary.on 04-05-2017 Coding Summary. CODING DATE: FINAL [facility] STATUS: Home (Routine DC) PAYOR: Medicare ADMIT DX: REASON FOR VISIT DX: T81.31XA Disruption of external operation (surgical) wound, not elsewhere classified, initial encounter FINAL DX: PRINCIPAL: T81.31XA Disruption of external operation (surgical) wound, not elsewhere classified, initial encounter SECONDARY: PROCEDURES DOCTOR NAME DATE NOTE: The code number assigned matches the documented diagnosis and / or procedure in the patient's chart. However, the narrative phrase printed from the coding software may appear abbreviated, or result in slightly different terminology. Coded By: Kathy Haro Date Saved: 04/05/2017 11:51 am [facility] Coding Summary.on 03-25-2017 Coding Summary. CODING DATE: FINAL [facility] STATUS: Home (Routine DC) PAYOR: Medicare ADMIT DX: REASON FOR VISIT DX: T81.31XA Disruption of external operation (surgical) wound, not elsewhere classified, initial encounter FINAL DX: PRINCIPAL: T81.31XA Disruption of external operation (surgical) wound, not elsewhere classified, initial encounter SECONDARY: PROCEDURES DOCTOR NAME DATE NOTE: The code number assigned matches the documented diagnosis and / or procedure in the patient's chart. However, the narrative phrase printed from the coding software may appear abbreviated, or result in slightly different terminology. Coded By: Kathy Haro Date Saved: 03/25/2017 04:43 pm [facility] C Woundon 03-14-2017 Wound Culture MicrobiologyPROCEDUR E: Wound Culture [R1] Incision BODY SITE: Hip LCOLLECTED DATE/TIME: 03/12/2017 14:42 EDT RECEIVED DATE/TIME: 03/12/2017 14:48 EDTSTART DATE/TIME: 03/12/2017 14:48 EDT FREE TEXT SOURCE:Sulaiman Hilliard PA-C, PA-C, Sulaiman LymanFINAL REPORTSFinal Report [] Verified Date/Time: 03/14/2017 12:38 EDT2+ Staphylococcus aureusSTAINSGram Stain Report [] Verified Date/Time: 03/13/2017 11:29 EDT1+ White Blood Cells 1+ Gram Positive CocciSUSCEPTIBILITY RESULTS LEGEND: S=Susceptible, N/R=Not Reported, Blank=Data not available, or drug notadvisable or tested, I=Intermediate, ESBL=Extended spectrum beta-lactamase,R=Resistant, TFG=Thymidine-dependent strain, MADDY=Beta-lactamase positive,JANICE=mcg/m;(mg/L), S*=Predicted susceptible interp, R*=Predicted resistant interp SAAntibiotic JANICE Dilutn JANICE InterpAmoxicillin/ <=4/2 SClavulanateAmpicillin <=2 N/RAmpicillin/ <=8/4 SSulbactamAzithromycin <=2 SCefazolin <=8 SCeftaroline <=0.5 SCiprofloxacin <=1 SClindamycin 0.5 SDaptomycin <=1 SErythromycin <=0.5 SGentamicin <=4 SLevofloxacin <=1 SLinezolid <=2 SNitrofurantoin <=32Oxacillin <=0.25 SPenicillin <=0.03 SRifampin <=1 STetracycline <=4 STrimethoprim/ <=0.5/9.5 SSulfaVancomycin 1 SPerforming LocationsR1: This test was performed at: [facility], [address] [place] [address], [id number] , [facility] Comment on above: Performed By: #### 2 [id number] ####[address] [place] [address] Coding Summary.on 03-14-2017 Coding Summary. CODING DATE: 017 FINAL [facility] STATUS: Home (Routine DC) PAYOR: Medicare APC DESCRIPTION 5023 Level 3 Type A ED Visits ADMIT DX: REASON FOR VISIT DX: Z48.89 Encounter for other specified surgical aftercare FINAL DX: PRINCIPAL: Z48.89 Encounter for other specified surgical aftercare SECONDARY: Z85.038 Personal history of other malignant neoplasm of large intestine Z96.642 Presence of left artificial hip joint Z96.659 Presence of unspecified artificial knee joint PYMT PROC APC STAT DESCRIPTION DOCTOR NAME DATE NOTE: The code number assigned matches the documented diagnosis and / or procedure in the patient's chart. However, the narrative phrase printed from the coding software may appear abbreviated, or result in slightly different terminology. Revised Coded By: Natalie Ordoñez Revised Date Saved: 03/14/2017 01:59 pm Normal [facility] ED Note-Physicianon 03-13-20 ED Note-Physician Patient: ROMEO GONZALEZ Age: 71 years Sex: Female : 1945 Associated Diagnoses: None Author: Sulaiman Hilliard PA-C Basic Information Time seen: Date & time 03/12/17 13:16:00. History source: Patient, family. Arrival mode: Private vehicle. History limitation: None. Additional information: Chief Complaint from Nursing Triage Note : Chief Complaint 03/12/2017 13:07 EDT Chief Complaint Hip surgery in Jan.by Dr. Harrell. Wound vac applied. Today having difficulty with wound vac. Was going to [facility]. They then sent her to the ED because they don't know wha to do. . History of Present Illness 71-year-old white female presents emergency room with her sisters and concerns of wound evaluation. Patient had surgical procedure to remove a suture granuloma from her left incision site status post 01/18/17 for a left hip bipolar hemiarthroplasty. This procedure was done by Dr. Harrell on February 12. Patient had been going to [facility]AC care. Patient is also receiving home health and the nurse requested her to go be seen by her sales and training specialist at [facility], and subsequently the patient was discharged and instructed to follow-up with her orthopedic surgeon. Patient was then referred to the ER for evaluation after calling Dr. Harrell's office. Patient lives in [place] and has come to [facility] for further evaluation and assistance with getting a wound VAC reestablished. She denies any fever or chills she does have history of slow healing. Review of Systems Constitutional symptoms: Negative except as documented in HPI. Skin symptoms: Lesion, Open wound to Left lateral hip. Eye symptoms: Negative except as documented in HPI. ENMT symptoms: Negative except as documented in HPI. Respiratory symptoms: Negative except as documented in HPI. Cardiovascular symptoms: Negative except as documented in HPI. Gastrointestinal symptoms: Negative except as documented in HPI. Genitourinary symptoms: Negative except as documented in HPI. Musculoskeletal symptoms: Negative except as documented in HPI. Neurologic symptoms: Negative except as documented in HPI. Psychiatric symptoms: Negative except as documented in HPI. Endocrine symptoms: Negative except as documented in HPI. Hematologic/Lymphatic symptoms: Negative except as documented in HPI. Allergy/immunologic symptoms: Negative except as documented in HPI. Additional review of systems information: All other systems reviewed and otherwise negative, All systems reviewed as documented in chart. Health Status Allergies: Allergic Reactions (Selected)No Known Allergies. Medications: (Selected) Documented MedicationsDocumentedColace 100 mg Cap: 100 mg = 1 cap(s), Oral, BID, PRN Constipation, Refills(s) 0Lasix 20 mg Tab: 20 mg = 1 tab(s), Oral, Daily, # 30 tab(s), Refills(s) 0Milk of Magnesia: = 30 mL, Oral, Daily, PRN Other (see comment), constipation, Refills(s) 0Nicoderm C-Q: 1 patch, TransDermal, Daily, Refill(s) 0, Smoking cessationSynthroid 88 mcg Tab: 88 microgram = 1 tab(s), Oral, Daily, # 30 tab(s), Refills(s) 0Tylenol 325 mg Tab: 650 mg = 2 tab(s), Oral, q4hr, PRN Pain/Fever, Temperature >100;Celphagia not to exceed 4000 mg/day, Refills(s) 0leflunomide 20 mg Tab: 20 mg = 1 tab(s), Oral, Daily, # 30 tab(s), Refills(s) 0. Past Medical/ Family/ Social History Medical history: No active or resolved past medical history items have been selected or recorded.. Surgical history: Incision AND drainage ([id number]) on 02/12/2017 at 71 Years.Comments:02/12/2017 13:15 - Rishi VALENCIA, Moira Flores, leftback surgery on 05/26/2015 at 69 Years.Comments:01/17/2017 18:16 - Nelson VALENCIA, [id number] cancer ([id number]) on 05/26/2015 at 69 Years.Ear prosthesis ([id number]) on 05/26/2012 at 66 Years.Comments:02/12/2017 10:25 - Evi ROMEO, Sandraright earKnee arthroplasty ([id number]) on 05/26/2007 at 61 Years.rotator cuff on 05/26/2002 at 56 Years.. Family history: . Social history: Social & Psychosocial HabitsNo Data Available. Problem list: Active Problems (1)Smoker . Physical Examination Vital Signs Vital Signs 03/12/2017 13:07 EDT Temperature Oral 36.4 DegC Peripheral Pulse Rate 83 bpm Respiratory Rate 18 br/min Systolic Blood Pressure 131 mmHg Diastolic Blood Pressure 69 mmHg SpO2 95 % . Measurements 03/12/2017 13:07 EDT Height/Length Measured 142 cm Body Mass Index Measured 33.28 kg/m2 Weight Measured 67.1 kg . Basic Oxygen Information 03/12/2017 13:07 EDT SpO2 95 % . General: Alert, no acute distress, anxious, Not ill-appearing, Skin: Warm, dry, no rash, Patient has a 4 x 1 cm open area to her left hip along her previous operative incision. This appears to be 3-4 cm deep and has a foam packing in place with minimal discharge. There is no foul odor no cellulitis or redness around the incision itself.. Head: Normocephalic, atraumatic. Neck: Supple, no tenderness. Eye: Pupils are equal, round and reactive to light, extraocular movements are intact, normal conjunctiva, vision unchanged. Ears, nose, mouth and throat: Oral mucosa moist, no pharyngeal erythema or exudate. Cardiovascular: Regular rate and rhythm, No murmur, Normal peripheral perfusion, No edema. Respiratory: Breath sounds are equal, Symmetrical chest wall expansion, Respirations: Regular, Breath sounds: Base(s), diminished, wheezes present (mild, expiratory wheezes). Chest wall: No tenderness, No deformity. Back: Nontender, Normal range of motion. Musculoskeletal: Normal ROM, normal strength. Gastrointestinal: Non distended. Genitourinary: No tenderness. Neurological: Alert and oriented to person, place, time, and situation, No focal neurological deficit observed, normal sensory observed, normal motor observed, normal speech observed. Lymphatics Psychiatric: Cooperative, appropriate mood & affect. Medical Decision Making Differential Diagnosis: Wound evaluation. Rationale: Patient has been under treatment with home health and receiving wound VAC care by the wound clinic in [facility]. She has been referred here after they have discharged her from their care in hopes to receive a new dressing today. Patient had called her orthopedic surgeon who referred her to the ER for further evaluation. Documents reviewed: Emergency department nurses' notes. Impression and Plan Diagnosis Encounter for post surgical wound check ([id number] Z48.89, Discharge, Medical) Plan Condition: Stable. Disposition: Discharged: Time 03/12/17 16:43:00, to home. Patient was given the following educational materials: Surgical Site Infections FAQs - FLORES, Wound Check. Follow up with: Return to [facility] 03/13/17 07:00:00 Tomorrow at 7am to see Dr Stiles whom will arrange appt with Dr Walton during tomorrows Wound Clinic.;, Return to Emergency Department, In: 15 hours, as discussed by Dr Stiles and he will arrange appt tomorrow with Dr Walton whom is scheduled in the office at 830 am tomorrow. . Counseled: Patient, Family, Regarding diagnosis, Regarding diagnostic results, Regarding treatment plan, Regarding prescription, Patient indicated understanding of instructions. Notes: 1340 We have attempted to call our wound clinic here at [facility] and there is no physician in the office currently. Nurse states that the patient soon his appointment would be next week. We will attempt to call physician that is working tomorrow as to expedite wound care for patient., Dr Stiles has been informed about evaluation and treatment of patient during this visit and has discussed Tx Plan with patient and Family which includes returning to [facility] ER tomorrow morning at [address] Stiles will speak to the Wound care physician and get her seen tomorrow. This report was transcribed using voice recognition software. Every effort was made to ensure accuracy, however, inadvertently computerized jig bore operator mistakes may be present.Patient was treated and evaluated by the physician financial planning assistant. The attending physician was in the emergency department at all times and supervised care. The case was discussed with the attending physician and diagnostics were reviewed as needed , 1550 Dr Greco returned call and was informed of patient's current condition and presents and states due to the fact that the wound is above the knee she will have to be seen by Dr. Khari Walton MD and he is unable to help with her condition. This is the first we have been able to talk to anybody in regards to follow-up with our wound care clinic. . Addendum Teaching-Supervisory Addendum-Brief I participated in the following activities of this patients care: the medical history, medical decision making. I personally performed: supervision of the patient's care. The case was discussed with: the physician financial planning assistant. Results interpretation: I agree with the documentation of the study interpretation. [facility] Comment on above: Result Comment: Elec tronically Signed By: Sulaiman Hilliard PA-C\.br\Date and Time Signed: 03/12/17 16:40 EDT\.br\Electronically Co-Signed By: Sulaiman Hilliard PA-C\.br\Date and Time Co-Signed: 03/12/17 16:44 EDT\.br\Electronically Co-Signed By: Keerthi Stiles MD\.br\Date and Time Co-Signed: 03/13/17 08:10 EDT ED Clinical Summaryon 2016 ED Clinical Summary (Inserted Image. Gali ble to display) [place] [id number] ED Clinical SummaryPerson Information Name: [facility]ESS[facility] Age: 71 Years : 1945 12:00 AM Sex: Female Language:Bahraini PCP: STUART ZAMORA DO Marital Status:Single Visit Id: Visit Reason:Wound reevaluation with or without suture removal; Post surgical problem; WOUND VAC CHECK Speciality: Acuity: 3 Enc Type: Emergency Med Service: Emergency Arrival:03/12/2017 12:55 PM Discharge: 03/12/2017 4:52 PM LOS: 000 03:57 Checkin:03/12/2017 12:55 PM Checkout: 03/12/2017 4:52 PM Dispo Type: Home (Routine DC) EVENTS:Event Name Event Status Request Date/Time Start Date/Time Complete Date/Time Arrive Complete 03/12/2017 12:55 PM 03/12/2017 12:55 PM 03/12/2017 12:55 PM Document Home Meds Request 03/12/2017 12:55 PM Triage Complete 03/12/2017 12:55 PM 03/12/2017 1:11 PM 03/12/2017 1:11 PM Bed Assign Complete 03/12/2017 1:12 PM 03/12/2017 1:12 PM 03/12/2017 1:[address] Exam Complete 03/12/2017 1:12 PM 03/12/2017 1:14 PM 03/12/2017 1:14 PM RN Exam Complete 03/12/2017 1:12 PM 03/12/2017 1:43 PM 03/12/2017 1:43 PM Registration Complete 03/12/2017 1:14 PM 03/12/2017 1:24 PM 03/12/2017 1:24 PM Reg Complete Request 03/12/2017 1:24 PM Reg Bed Request Complete 03/12/2017 1:24 PM 03/12/2017 1:24 PM 03/12/2017 1:24 PM X-Ray Cancel 03/12/2017 2:37 PM 03/12/2017 2:46 PM Pending Labs Inlab 03/12/2017 2:37 PM Lab Inlab 03/12/2017 2:[address] Exam Complete 03/12/2017 4:13 PM 03/12/2017 4:13 PM 03/12/2017 4:13 PM Registration Request 03/12/2017 4:13 PM Patient Care Request 03/12/2017 4:19 PM Discharge Complete 03/12/2017 4:44 PM 03/12/2017 4:52 PM 03/12/2017 4:52 PM Transfer Complete 03/12/2017 4:52 PM 03/12/2017 4:52 PM 03/12/2017 4:52 PM ADDRESS:[address] [place] [phone] [facility] DOC NOTES: MEDICAL INFORMATION: Prescriptions Given:PATIENT EDUCATION INFORMATION: Instructions:Surgical Site Infections FAQs - FLORES; Wound Check Follow up:With: Address: When: Return to [facility] 03/13/17 07:00:00 Comments: Tomorrow at 7am to see Dr Stiles whom will arrange appt with Dr Walton during tomorrows Wound Clinic. DIAGNOSIS:Encounter for post surgical wound check Normal [facility] ED Patient Education Noteon 03-12-2017 ED Patient Education Note Patient Education Materials Follows:Wound CheckYour wound appears healthy today. Your wound will heal gradually over time. Eventually a scar will form that will fade with time.FACTORS THAT AFFECT SCAR FORMATION:? People differ in the severity in which they scar.?? Scar severity varies according to location, size, and the traits you inherited from your parents (genetic predisposition). ? Irritation to the wound from infection, rubbing, or chemical exposure will increase the amount of scar formation.HOME CARE INSTRUCTIONS? If you were given a dressing, you should change it at least once a day or as instructed by your caregiver. If the bandage sticks, soak it off with a solution of hydrogen peroxide.? If the bandage becomes wet, dirty, or develops a bad smell, change it as soon as possible. ? Look for signs of infection.? Only take kvau-dyt-gowmlip or prescription medicines for pain, discomfort, or fever as directed by your caregiver. SEEK IMMEDIATE MEDICAL CARE IF:? You have redness, swelling, or increasing pain in the wound.? You notice pus coming from the wound.? You have a fever.? You notice a bad smell coming from the wound or dressing.Document Released: 02/15/2005 Document Revised: 08/03/2012 Document Reviewed: 05/12/2006ExitCare? Patient Information ?2014 [employer]. This information is not intended to replace advice given to you by your health care provider. Make sure you discuss any questions you have with your health care provider.SurgerySurgical Site Infections FAQsWhat is a Surgical Site Infection (SSI)?A surgical site infection is an infection that occurs after surgery in the part of the body where the surgery took place. Most patients who have surgery do not develop an infection. However, infections develop in about 1 to 3 out of every 100 patients who have surgery.Some of the common symptoms of a surgical site infection are:? Redness and pain around the area where you had surgery? Drainage of cloudy fluid from your surgical wound? FeverCan SSIs be treated?Yes. Most surgical site infections can be treated with antibiotics. The antibiotic given to you depends on the bacteria (germs) causing the infections. Sometimes patients with SSIs also need another surgery to treat the infection.What are some of the things that hospitals are doing to prevent SSIs?To prevent SSIs, doctors, nurses, and other healthcare providers:? Clean their hands and arms up to their elbows with an antiseptic agent just before the surgery.? Clean their hands with soap and water or an alcohol-based hand rub before and after caring for each patient.? May remove some of your hair immediately before your surgery using electric clippers if the hair is in the same area where the procedure will occur. They should not shave you with a razor.? Wear special hair covers, masks, gowns, and gloves during surgery to keep the surgery area clean.? Give you antibiotics before your surgery starts. In most cases, you should get antibiotics within 60 minutes before the surgery starts and the antibiotics should be stopped within 24 hours after surgery.? Clean the skin at the site of your surgery with a special soap that kills germs.What can I do to help prevent SSIs?Before your surgery:? Tell your doctor about other medical problems you may have. Health problems such as allergies, diabetes, and obesity could affect your surgery and your treatment.? Quit smoking. Patients who smoke get more infections. Talk to your doctor about how you can quit before your surgery.? Do not shave near where you will have surgery. Shaving with a razor can irritate your skin and make it easier to develop an infection.At the time of your surgery:? Speak up if someone tries to shave you with a razor before surgery. Ask why you need to be shaved and talk with your surgeon if you have any concerns.? Ask if you will get antibiotics before surgery.After your surgery:? Make sure that your healthcare providers clean their hands before examining you, either with soap and water or an alcohol-based hand rub.? If you do not see your providers clean their hands, please ask them to do so.? Family and friends who visit you should not touch the surgical wound or dressings.? Family and friends should clean their hands with soap and water or an alcohol-based hand rub before and after visiting you. If you do not see them clean their hands, ask them to clean their hands.What do I need to do when I go home from the hospital?? Before you go home, your doctor or nurse should explain everything you need to know about taking care of your wound. Make sure you understand how to care for your wound before you leave the hospital.? Always clean your hands before and after caring for your wound.? Before you go home, make sure you know who to contact if you have questions or problems after you get home.? If you have any symptoms of an infection, such as redness and pain at the surgery site, drainage, or fever, call your doctor immediately.If you have additional questions, please ask your doctor or nurse.Developed and co-sponsored by The Society for Healthcare Epidemiology of [place] (FLORES); Infectious Diseases Society of [place] (IDSA); [facility]; Association for Professionals in Infection Control and Epidemiology (APIC); Centers for Disease Control and Prevention (CDC); and The Joint Commission.Document Released: 05/17/2014 Document Reviewed: 05/17/2014ExitCare? Patient Information ?2015 [employer]. This information is not intended to replace advice given to you by your health care provider. Make sure you discuss any questions you have with your health care provider. Normal [facility] ED Patient Summaryon 017 ED Patient Summary (Inserted Image. Gali ble to display) [place] [id number] Patient Discharge Instructions Person Information Name: JESSICA GONZALEZ Age: 71 Years Date: 03/12/2017 12:55 PMDischarge Diagnosis: Encounter for post surgical wound check Primary Care Physician: STUART ZAMORA DO Provider InformationPrimary Provider: Espinoza Stiles MDsishasta Supervisor Road Administrator:None The exam and treatment you received in the Emergency Department were for an urgent problem and are not intended as complete care. It is important that you follow up with a doctor, nurse practitioner, or physician?s financial planning assistant for ongoing care. If your symptoms become worse or you do not improve as expected and you are unable to reach your usual health care provider, you should return to the Emergency Department. We are available 24 hours a day. JESSICA GONZALEZ has been given the following list of patient education materials, prescriptions and follow-up instructions: Follow-up Instructions:With: Address: When: Return to [facility] 03/13/17 07:00:00 Comments: Tomorrow at 7am to see Dr Stiles whom will arrange appt with Dr Walton during tomorrows Wound Clinic. In the event that this physician does not participate in your insurance network, please consult with your insurance company to find a nearby participating provider. Patient Education Materials:Surgical Site Infections FAQs - FLORES; Wound Check Medications Given:Medication Dose Route No medications found. Medication Information:Medications to Continue with No ChangesOther Medicationsacetaminophen (Tylenol 325 mg Tab) 2 Tabs By Mouth every 4 hours as needed Pain/Fever. Temperature >100;Celphagia not to exceed 4000 mg/day.docusate (Colace 100 mg Cap) 1 Capsules By Mouth 2 times a day as needed Constipation.furosemide (Lasix 20 mg Tab) 1 Tabs By Mouth every day.leflunomide (leflunomide 20 mg Tab) 1 Tabs By Mouth every day.levothyroxine (Synthroid 88 mcg Tab) 1 Tabs By Mouth every day.magnesium hydroxide (Milk of Magnesia) 30 Milliliter By Mouth every day as needed Other (see comment). constipation.nicotine (Nicoderm C-Q) 1 patch Transdermal every day.Comment: Pharmacy Information: Thank you for choosing [facility] Patient Education Materials: Surgical Site Infections FAQsWhat is a Surgical Site Infection (SSI)?A surgical site infection is an infection that occurs after surgery in the part of the body where the surgery took place. Most patients who have surgery do not develop an infection. However, infections develop in about 1 to 3 out of every 100 patients who have surgery.Some of the common symptoms of a surgical site infection are:? Redness and pain around the area where you had surgery? Drainage of cloudy fluid from your surgical wound? FeverCan SSIs be treated?Yes. Most surgical site infections can be treated with antibiotics. The antibiotic given to you depends on the bacteria (germs) causing the infections. Sometimes patients with SSIs also need another surgery to treat the infection.What are some of the things that hospitals are doing to prevent SSIs?To prevent SSIs, doctors, nurses, and other healthcare providers:? Clean their hands and arms up to their elbows with an antiseptic agent just before the surgery.? Clean their hands with soap and water or an alcohol-based hand rub before and after caring for each patient.? May remove some of your hair immediately before your surgery using electric clippers if the hair is in the same area where the procedure will occur. They should not shave you with a razor.? Wear special hair covers, masks, gowns, and gloves during surgery to keep the surgery area clean.? Give you antibiotics before your surgery starts. In most cases, you should get antibiotics within 60 minutes before the surgery starts and the antibiotics should be stopped within 24 hours after surgery.? Clean the skin at the site of your surgery with a special soap that kills germs.What can I do to help prevent SSIs?Before your surgery:? Tell your doctor about other medical problems you may have. Health problems such as allergies, diabetes, and obesity could affect your surgery and your treatment.? Quit smoking. Patients who smoke get more infections. Talk to your doctor about how you can quit before your surgery.? Do not shave near where you will have surgery. Shaving with a razor can irritate your skin and make it easier to develop an infection.At the time of your surgery:? Speak up if someone tries to shave you with a razor before surgery. Ask why you need to be shaved and talk with your surgeon if you have any concerns.? Ask if you will get antibiotics before surgery.After your surgery:? Make sure that your healthcare providers clean their hands before examining you, either with soap and water or an alcohol-based hand rub.? If you do not see your providers clean their hands, please ask them to do so.? Family and friends who visit you should not touch the surgical wound or dressings.? Family and friends should clean their hands with soap and water or an alcohol-based hand rub before and after visiting you. If you do not see them clean their hands, ask them to clean their hands.What do I need to do when I go home from the hospital?? Before you go home, your doctor or nurse should explain everything you need to know about taking care of your wound. Make sure you understand how to care for your wound before you leave the hospital.? Always clean your hands before and after caring for your wound.? Before you go home, make sure you know who to contact if you have questions or problems after you get home.? If you have any symptoms of an infection, such as redness and pain at the surgery site, drainage, or fever, call your doctor immediately.If you have additional questions, please ask your doctor or nurse.Developed and co-sponsored by The Society for Healthcare Epidemiology of [place] (FLORES); Infectious Diseases Society of [place] (IDSA); [facility]; Association for Professionals in Infection Control and Epidemiology (APIC); Centers for Disease Control and Prevention (CDC); and The Joint Commission.Document Released: 05/17/2014 Document Reviewed: 05/17/2014ExitCare? Patient Information ?2014 [employer]. This information is not intended to replace advice given to you by your health care provider. Make sure you discuss any questions you have with your health care provider.Wound CheckYour wound appears healthy today. Your wound will heal gradually over time. Eventually a scar will form that will fade with time.FACTORS THAT AFFECT SCAR FORMATION:? People differ in the severity in which they scar.?? Scar severity varies according to location, size, and the traits you inherited from your parents (genetic predisposition). ? Irritation to the wound from infection, rubbing, or chemical exposure will increase the amount of scar formation.HOME CARE INSTRUCTIONS? If you were given a dressing, you should change it at least once a day or as instructed by your caregiver. If the bandage sticks, soak it off with a solution of hydrogen peroxide.? If the bandage becomes wet, dirty, or develops a bad smell, change it as soon as possible. ? Look for signs of infection.? Only take yjno-vfu-gtdehdu or prescription medicines for pain, discomfort, or fever as directed by your caregiver. SEEK IMMEDIATE MEDICAL CARE IF:? You have redness, swelling, or increasing pain in the wound.? You notice pus coming from the wound.? You have a fever.? You notice a bad smell coming from the wound or dressing.Document Released: 02/15/2005 Document Revised: 08/03/2012 Document Reviewed: 05/12/2006ExitCare? Patient Information ?2014 [employer]. This information is not intended to replace advice given to you by your health care provider. Make sure you discuss any questions you have with your health care provider.CARLOS Bishop CAROLE J , have received the following patient education materials/instructions and have verbalized understanding: Patient Education Materials: Surgical Site Infections FAQs - FLORES; Wound Check Follow-up Instructions: With: Address: When: Return to [facility] 03/13/17 07:00:00 Comments: Tomorrow at 7am to see Dr Stiles whom will arrange appt with Dr Walton during tomorrows Wound Clinic. Prescriptions: Patient Signature Date Clinician/Nurse Signature Date 03/12/17 16:52:16 [facility] Progress Note-Nurseon 2016 Progress Note-Nurse [facility] ic called and this nurse spoke with Modesta VALENCIA, GUT DROPPER. She stated she saw patient today and advised her to follow up with her surgeon who performed surgery on her L hip. Modesta stated she called Dr. Harrell and he stated he could not see patient because he does not care for wounds. Modesta states that the measurement of the wound today is greater than the measurement from her past visit more than two weeks ago. She also stated that the wound now has undermining and green drainage that has increased in amount to the point that she is using three canisters a day. Report of xray was sent to [facility]. Pt being updated on POC. Normal [facility] Anesthesia Consultationon Anesthesia Consultation Patient: JESSICA GONZALEZ Age: 71 years Sex: Female : 1945 Associated Diagnoses: None Author: Seth Keller Jr., DO Postoperative Information Post Operative Note: Post Anesthesia Care Unit. Anesthetic utilized: General, Monitored anesthesia care. Health Status Allergies: Allergic Reactions (Selected)No Known Allergies Current medications: (Selected) PrescriptionsPrescribedAugmen tin 875 mg oral tablet: = 1 tab(s), Oral, q12hr, X 10 day(s), # 20 tab(s), Refills(s) 0, other reason (Rx)Documented MedicationsDocumentedColace 100 mg Cap: 100 mg = 1 cap(s), Oral, BID, PRN Constipation, Refills(s) 0Lasix 20 mg Tab: 20 mg = 1 tab(s), Oral, Daily, # 30 tab(s), Refills(s) 0Milk of Magnesia: = 30 mL, Oral, Daily, PRN Other (see comment), constipation, Refills(s) 0Nicoderm C-Q: 1 patch, TransDermal, Daily, Refill(s) 0, Smoking cessationSynthroid 88 mcg Tab: 88 microgram = 1 tab(s), Oral, Daily, # 30 tab(s), Refills(s) 0Tylenol 325 mg Tab: 650 mg = 2 tab(s), Oral, q4hr, PRN Pain/Fever, Temperature >100;Celphagia not to exceed 4000 mg/day, Refills(s) 0leflunomide 20 mg Tab: 20 mg = 1 tab(s), Oral, Daily, # 30 tab(s), Refills(s) 0 Problem list: All ProblemsSmoker / IMO [id number] / ConfirmedAdded secondary to documentation in Social History.Inactive: Impaired skin integrity / SNOMED CT 18939712Zbgculi added on documentation of skin impairments.Resolved: At risk for falls / SNOMED CT 195097785Midodxn added when Risk for Falls Careplan was initiated.Resolved due to patient discharge. Physical Examination Intake and Output Denies significant n/v and is tolerating p.o. No qualifying data available Respiratory: Adequate air exchange with religion of preoperative function.. Cardiovascular: Cardiovascular function is stable and has returned to preoperative levels.. Neurologic: Pt has returned to preoperative baseline.. Review / Management Condition: Stable. Assessment Anesthetic outcome No anesthetic complications noted. Plan Transfer/ Discharge: Patient can be discharged from PACU when criteria met. Condition good. Normal [facility] Inpatient Clinical Summaryon 02-18-2017 Inpatient Clinical Summary [place] [id number] Clinical Summary Person Information:Name: JESSICA GONZALEZ Age: 71 Years : 1945 12:00 AM Sex: Female PCP: STUART ZAMORA DO Marital Status:Single Race:White Ethnicity:Non- or Language:Bahraini Visit Id: Visit Reason:SUTURE GRANULOMA LEFT HIP Speciality: Acuity: Enc Type: Ambulatory/Same Day Surgery Med Service: Surgery Arrival:02/12/2017 9:21 AM Discharge: 02/13/2017 4:00 PM Dispo Type: SNF w/ Medicare Cert Address:[address] [place] [phone] Provider Notes: Diagnosis:Suture granuloma Problems Active Smoker Smoking Status:Current Every Day Smoker Functional Status:Sensory Deficits: No hearing deficits, Wears glassesHistory of Falls: Mobility Assistance Prior to Admission: Partial assistanceADLs: IndependentCurrent Level of Assistance for Self-Care/Mobility: Cognitive Status: Allergies No Known Allergies Measurements:Height: 155 cmWeight: 67.4 kgBlood Pressure: 102 mmHg / 66 mmHgBMI: 28.05 kg/m2 Procedures Incision AND drainage (02/12/2017) Anesthesia for procedures on the integumentary system on the extremities, anterior trunk and perineum; not otherwise specified (02/12/2017) Debridement, subcutaneous tissue (includes epidermis and dermis, if performed); first 20 sq cm or less (02/12/2017) Immunizations No Immunizations Documented This Visit Final Med List:acetaminophen (Tylenol 325 mg Tab) 2 Tabs By Mouth every 4 hours as needed Pain/Fever. Temperature >100;Celphagia not to exceed 4000 mg/day.amoxicillin-clavulanat e (Augmentin 875 mg oral tablet) 1 Tabs By Mouth every 12 hours for 10 Days. Refills: 0.aspirin (aspirin 325 mg Oral EC Tab) 1 Tabs By Mouth 2 times a day for 30 Days. Refills: 0.docusate (Colace 100 mg Cap) 1 Capsules By Mouth 2 times a day as needed Constipation.furosemide (Lasix 20 mg Tab) 1 Tabs By Mouth every day.leflunomide (leflunomide 20 mg Tab) 1 Tabs By Mouth every day.levothyroxine (Synthroid 88 mcg Tab) 1 Tabs By Mouth every day.magnesium hydroxide (Milk of Magnesia) 30 Milliliter By Mouth every day as needed Other (see comment). constipation.nicotine (Nicoderm C-Q) 1 patch Transdermal every day. Care Team Members:Attending Physician: Bautista Harrell DO Physician: Carline RamachandraneResurgical specialty hospital-coordinated hlthjuanita Physician: Ryan Harrell DO Follow up:With: Address: When: Ryan Harrell [address] [address] Business (1) Comments: Call for followup appointment With: Address: When: STUART ZAMORA [address] [facility] [place], [place] [address] Business (1) Within 1 week Patient Education Information: Shine - Post Op Hip Replacement Arthroplasty (Revised January 2017) (CUSTOM); Shine - Post Op Hip Replacement Arthroplasty (Revised January 2017) (Custom); High-Protein Diet; Wound Infection, Nxqz-tv-RoadVkhttimb 325 mg-5 mg Tab Normal [facility] Inpatient Patient Summaryon 02-18-2017 Inpatient Patient Summary [place] [id number] Patient Discharge Instructions PERSON INFORMATION Name: JESSICA GONZALEZ Date of : 1945 12:00 AM Current Date: 02/18/17 15:28:43 PHYSICIANS Admitting Physician: Jeffrey Harrell DO Zohreh Physician: BERNARDINO ZAMORA DO Comment: Discharge Diagnosis: Suture granulomaCondition at Discharge: Stable JESSICA GONZALEZ has been given the following list of follow-up instructions, prescriptions, and patient education materials: PATIENT FOLLOW-UP INFORMATIONDiet: Fat Modified- Low cholesterol, Low Sodium- 2000 mgDischarge Activity: Discharge Restrictions: Wound Care Instructions: Remove Your Dressing In DaysCall Your Doctor For: IF UNABLE TO CONTACT YOUR PHYSICIAN AND YOU FEEL IT IS AN EMERGENCY, GO TO THE NEAREST EMERGENCY ROOM OR CALL 911 Home Treatment: Wound careDevices/Equipment: Other: wound vacSpecial Services: Additional Instructions: Follow all instructions per Dr. Patel [facility]ician to provide the following pending test results: Follow up:With: Address: When: Ryan Harrell [address] [address] Business (1) Comments: Call for followup appointment With: Address: When: STUART BALL [address] [facility] [place] [address] Business (1) Within 1 week In the event that this physician does not participate in your insurance network, please consult with your insurance company to find a nearby participating provider. Comment: CARLOS Bishop CAROLE J, have received the attached patient education materials/instructions and have verbalized understanding:Patient Signature Date Clinican/Nurse Signature Date HERE ARE THE MEDICATION CHANGES THAT OCCURRED DURING YOUR HOSPITAL STAY New MedicationsOther Medicationsacetaminophen (Tylenol 325 mg Tab) 2 Tabs By Mouth every 4 hours as needed Pain/Fever. Temperature >100;Celphagia not to exceed 4000 mg/day.Last Dose: Next Dose: amox icillin-clavulanate (Augmentin 875 mg oral tablet) 1 Tabs By Mouth every 12 hours for 10 Days. Refills: 0.Last Dose: Next Dose: docu sate (Colace 100 mg Cap) 1 Capsules By Mouth 2 times a day as needed Constipation.Last Dose: Next Dose: Medi cations to Continue with No ChangesOther Medicationsaspirin (aspirin 325 mg Oral EC Tab) 1 Tabs By Mouth 2 times a day for 30 Days. Refills: 0.Last Dose: Next Dose: furo semide (Lasix 20 mg Tab) 1 Tabs By Mouth every day.Last Dose: Next Dose: lefl unomide (leflunomide 20 mg Tab) 1 Tabs By Mouth every day.Last Dose: Next Dose: levo thyroxine (Synthroid 88 mcg Tab) 1 Tabs By Mouth every day.Last Dose: Next Dose: magn esium hydroxide (Milk of Magnesia) 30 Milliliter By Mouth every day as needed Other (see comment). constipation.Last Dose: Next Dose: nico yanely (Nicoderm C-Q) 1 patch Transdermal every day.Last Dose: Next Dose: No Longer Take the Following Medicationsacetaminophen-oxyc odone (Percocet 325 mg-5 mg Tab) 1 Tabs By Mouth every 4 hours as needed as needed for pain. Refills: 0.ciprofloxacin (Cipro 250 mg Tab) 1 Tabs By Mouth every 12 hours.saw palmetto (Prostate SR) 30 Milliliter By Mouth every day.Comment: MEDICATION LIST PROVIDED FOR YOU IS A LIST OF YOUR CURRENT MEDICATIONS. PLEASE CARRY THIS WITH YOU AT ALL TIMES. acetaminophen (Tylenol 325 mg Tab) 2 Tabs By Mouth every 4 hours as needed Pain/Fever. Temperature >100;Celphagia not to exceed 4000 mg/day.amoxicillin-clavulanat e (Augmentin 875 mg oral tablet) 1 Tabs By Mouth every 12 hours for 10 Days. Refills: 0.aspirin (aspirin 325 mg Oral EC Tab) 1 Tabs By Mouth 2 times a day for 30 Days. Refills: 0.docusate (Colace 100 mg Cap) 1 Capsules By Mouth 2 times a day as needed Constipation.furosemide (Lasix 20 mg Tab) 1 Tabs By Mouth every day.leflunomide (leflunomide 20 mg Tab) 1 Tabs By Mouth every day.levothyroxine (Synthroid 88 mcg Tab) 1 Tabs By Mouth every day.magnesium hydroxide (Milk of Magnesia) 30 Milliliter By Mouth every day as needed Other (see comment). constipation.nicotine (Nicoderm C-Q) 1 patch Transdermal every day.Pharmacy Information: [facility] comment: PATIENT EDUCATION INFORMATIONInstructions:Isaias Harrell D.O.[facility] [address] [id number] VE BIPOLAR HIP REPLACEMENT ARTHROPLASTY DISCHARGE INSTRUCTIONSINCISION CARE:Follow AQUACEL dressing protocol as instructed. See AQUACEL sheet for details. After AQUACEL dressing removed change dry dressing daily as instructed until dry scabs completely resolved to avoid incision irritation.If the incision is dry, apply a dry dressing only. If any drainage is noted apply Betadine liquid over the drainage only - do not excessively apply Betadine. Dressing changes may be done more often as needed. You may shower, but do not have incision under water until all scabs completely gone. Please notify the office if any increase in redness, tenderness, drainage, fever, or wound separation is noted beyond this point.Compression stockings may be helpful if any significant or uncomfortable swelling in the legs is noted postoperatively. Use and removal instructions should be given by physical therapy. If the swelling is below the knee, knee high compression stockings may suffice. If this does cause swelling into the thigh region, waist high compression stockings may be beneficial as well. These can be obtained from most pharmacies, or can be obtained from the hospital or through Home Health. The mild grade compression stockings are best used initially, and dislocation precautions must be maintained. You may need assistance when applying or removing the compression stocking.DISLOCATION PRECAUTIONS:Continue to use the abduction pillow between the knees at all times, both while in bed and up in chair. This abduction pillow should be removed only while walking and performing physical therapy exercises; otherwise, to be used while sitting and while in bed. This will maintained for six weeks postoperatively. At that time you may begin using a regular bed pillow between your knees at night. You should continue to avoid crossing the knees or crossing the legs for six months postoperatively. Sitting in a chair should always be such that the knees are kept below the level of the hips to avoid increased flexion of the hip, possibly causing dislocation.MEDICATIONS:You may resume your home medications at the time of discharge.Pain medication has been prescribed as well. You may continue to use the pain medication every four hours as needed. Any narcotic pain medication can cause side effects including stomach upset, constipation, or light-headedness. You should not drive or operate machinery, or use alcohol while using the narcotic pain medication. You should not use other pain medications with this prescription pain medication unless further directed by your physician.Deep Venous Thrombosis Prophylaxis ? to prevent Blood ClotsA blood thinner that helps prevents the development of blood clots in the legs, was used during your hospitalization. Blood thinner should be continued after discharge Aspirin Therapy ? patients with no history of blood clots For prevention of deep venous thrombosis and pulmonary embolization, continue to take one regular strength 325mg stomach coated Aspirin twice daily with meals for 30 days postop. Please notify the office if you have any sensitivity to Aspirin products or if any problems develop such as stomach upset, increased bleeding, bruising or ringing in the ears.PHYSICAL THERAPY ? DISLOCATION PRECAUTIONS:Continue the range of motion and strengthening exercises initiated in Physical Therapy in the hospital. Again, do not cross legs, internally rotate the legs, or flex the hip above 90 degrees for six months postoperatively.Continue weight bearing, as ordered, to the operated hip for four to six weeks as directed in Physical Therapy. This will be with the use of a walker or crutches. After four or six weeks you may then progress to the use of one crutch, or a cane. A quad-cane is preferred as this is more stable. Physical therapy as begun in the hospital will continue at home, possible with the financial planning assistant of Home Health Physical Therapy or in the hospital as an outpatient. When you have become independent with the physical therapy program, this will then be discontinued as a supervised program and you will be instructed to continue the physical therapy exercises at home.DRIVING:Driving is legal, but you must be able to maintain control of your car at all times. Driving too soon, you are considered an impaired mule driver, and this could be a problem. It is therefore advised not to drive until after your first office visit following surgeryFOLLOW-UP OFFICE VISIT: Cash Harrell D.O.Revised: tracie Harrell D.O.[address] [id number] VE HIP REPLACEMENT ARTHROPLASTY DISCHARGE INSTRUCTIONSINCISION CARE:Follow WOUND VAC dressing protocol as instructed. Please notify the office if any increase in redness, tenderness, drainage, fever, or wound separation is noted beyond this point.Compression stockings may be helpful if any significant or uncomfortable swelling in the legs is noted postoperatively. Use and removal instructions should be given by physical therapy. If the swelling is below the knee, knee high compression stockings may suffice. If this does cause swelling into the thigh region, waist high compression stockings may be beneficial as well. These can be obtained from most pharmacies, or can be obtained from the hospital or through Home Health. The mild grade compression stockings are best used initially, and dislocation precautions must be maintained. You may need assistance when applying or removing the compression stocking.DISLOCATION PRECAUTIONS:Continue to use the abduction pillow between the knees at all times, both while in bed and up in chair. This abduction pillow should be removed only while walking and performing physical therapy exercises; otherwise, to be used while sitting and while in bed. This will maintained for six weeks postoperatively. At that time you may begin using a regular bed pillow between your knees at night. You should continue to avoid crossing the knees or crossing the legs for six months postoperatively. Sitting in a chair should always be such that the knees are kept below the level of the hips to avoid increased flexion of the hip, possibly causing dislocation.MEDICATIONS:You may resume your home medications at the time of discharge.Pain medication has been prescribed as well. You may continue to use the pain medication every four hours as needed. Any narcotic pain medication can cause side effects including stomach upset, constipation, or light-headedness. You should not drive or operate machinery, or use alcohol while using the narcotic pain medication. You should not use other pain medications with this prescription pain medication unless further directed by your physician.Deep Venous Thrombosis Prophylaxis ? to prevent Blood ClotsA blood thinner that helps prevents the development of blood clots in the legs, was used during your hospitalization. Blood thinner should be continued after discharge Aspirin Therapy ? patients with no history of blood clots For prevention of deep venous thrombosis and pulmonary embolization, continue to take one regular strength 325mg stomach coated Aspirin twice daily with meals for 30 days postop. Please notify the office if you have any sensitivity to Aspirin products or if any problems develop such as stomach upset, increased bleeding, bruising or ringing in the ears.PHYSICAL THERAPY ? DISLOCATION PRECAUTIONS:Continue the range of motion and strengthening exercises initiated in Physical Therapy in the hospital. Again, do not cross legs, internally rotate the legs, or flex the hip above 90 degrees for six months postoperatively.Continue weight bearing, as ordered, to the operated hip for four to six weeks as directed in Physical Therapy. This will be with the use of a walker or crutches. After four or six weeks you may then progress to the use of one crutch, or a cane. A quad-cane is preferred as this is more stable. Physical therapy as begun in the hospital will continue at home, possible with the financial planning assistant of Home Health Physical Therapy or in the hospital as an outpatient. When you have become independent with the physical therapy program, this will then be discontinued as a supervised program and you will be instructed to continue the physical therapy exercises at home.DRIVING:Driving is legal, but you must be able to maintain control of your car at all times. Driving too soon, you are considered an impaired mule driver, and this could be a problem. It is therefore advised not to drive until after your first office visit following surgeryFOLLOW-UP OFFICE VISIT: Cash Harrell D.O.Revised: 2010High Protein DietA high protein diet means that high protein foods are added to your diet. Getting more protein in the diet is important for a number of reasons. Protein helps the body to build tissue, muscle, and to repair damage. People who have had surgery, injuries such as broken bones, infections, and lane, or illnesses such as cancer, may need more protein in their diet. SERVING SIZESMeasuring foods and serving sizes helps to make sure you are getting the right amount of food. The list below tells how big or small some common serving sizes are. ? 1 oz.........4 stacked dice.? 3 oz.........Deck of cards.? 1 tsp........Tip of little finger.? 1 tbs........Thumb.? 2 tbs........Golf ball.? ? cup.......Half of a fist.? 1 cup........A fist.FOOD SOURCES OF PROTEINListed below are some food sources of protein and the amount of protein they contain. Your Registered Dietitian can calculate how many grams of protein you need for your medical condition. High protein foods can be added to the diet at mealtime or as snacks. Be sure to have at least 1 protein-containing food at each meal and snack to ensure adequate intake. Meats and Meat Substitutes / Protein (g)? 3 oz poultry (chicken, turkey) / 26 g? 3 oz tuna, canned in water / 26 g? 3 oz fish (cod) / 21 g? 3 oz red meat (beef, pork) / 21 g? 4 oz tofu / 9 g? 1 egg / 6 g? ? cup egg substitute / 5 g? 1 cup dried beans / 15 g? 1 cup soy milk / 4 gDairy / Protein (g)? 1 cup milk (skim, 1%, 2%, whole) / 8 g? ? cup evaporated milk / 9 g? 1 cup buttermilk / 8 g? 1 cup low-fat plain yogurt / 11 g? 1 cup regular plain yogurt / 9 g? ? cup cottage cheese / 14 g? 1 oz cheddar cheese / 7 gNuts / Protein (g)? 2 tbs peanut butter / 8 g? 1 oz peanuts / 7 g? 2 tbs cashews / 5 g? 2 tbs almonds / 5 gDocument Released: 05/12/2006 Document Revised: 08/03/2012 Document Reviewed: 02/12/2008ExitCare? Patient Information ?2014 [employer]. This information is not intended to replace advice given to you by your health care provider. Make sure you discuss any questions you have with your health care provider.Wound InfectionA wound infection happens when a type of germ (bacteria) grows in a wound. Caring for the infection can help the wound heal. Wound infections need treatment. HOME CARE? Only take medicine as told by your doctor.? Take your antibiotic medicine as told. Finish it even if you start to feel better.? Clean the wound with mild soap and water as told. Rinse the soap off. Pat the area dry with a clean towel. Do not rub the wound. ? Change any bandages (dressings) as told by your doctor.? Put cream and a bandage on the wound as told by your doctor.? If the bandage sticks, wet it with soapy water to remove the bandage.? Change the bandage if it gets wet, dirty, or starts to smell.? Take showers. Do not take baths, swim, or do anything that puts your wound under water.? Avoid exercise that makes you sweat.? If your wound itches, use a medicine that helps stop itching. Do not pick or scratch at the wound.? Keep all doctor visits as told.GET HELP RIGHT AWAY IF:? You have more puffiness (swelling), pain, or redness around the wound.? You have more yellowish-white fluid (pus) coming from the wound.? You have a bad smell coming from the wound.? Your wound breaks open more.? You have a fever. MAKE SURE YOU:? Understand these instructions.? Will watch your condition.? Will get help right away if you are not doing well or get worse.Document Released: 02/18/2009 Document Revised: 08/03/2012 Document Reviewed: 10/21/2011ExitCare? Patient Information ?2014 [employer]. This information is not intended to replace advice given to you by your health care provider. Make sure you discuss any questions you have with your health care provider. Medication Leaflets:acetaminophen and oxycodone (a SEET a MIN oh fen and OX i KOE done)Endocet, Percocet 10/325, Percocet 2.5/325, Percocet 5/325, Percocet 7.5/325, Primlev, Roxicet, Xartemis XR What is the most important information I should know about acetaminophen and oxycodone?This medicine can slow or stop your breathing, and may be habit-forming. Use only your prescribed dose, and swallow the pill whole to avoid a potentially fatal dose. Never share acetaminophen and oxycodone with another person. Oxycodone can slow or stop your breathing, and may be habit-forming. MISUSE OF THIS MEDICINE CAN CAUSE ADDICTION, OVERDOSE, OR , especially in a child or other person using the medicine without a prescription.Taking this medicine during may cause life-threatening withdrawal symptoms in the .An overdose of acetaminophen can damage your liver or cause . Call your doctor at once if you have nausea, pain in your upper stomach, itching, loss of appetite, dark urine, rosemary-colored stools, or jaundice (yellowing of your skin or eyes).Stop taking this medicine and call your doctor right away if you have skin redness or a rash that spreads and causes blistering and peeling. Fatal side effects can occur if you use this medicine with alcohol, or with other drugs that cause drowsiness or slow your breathing.What is acetaminophen and oxycodone?Oxycodone is an opioid pain medication. An opioid is sometimes called a narcotic. Acetaminophen is a less potent pain reliever that increases the effects of oxycodone.Acetaminophen and oxycodone is a combination medicine used to relieve moderate to severe pain.Acetaminophen and oxycodone may also be used for purposes not listed in this medication guide.What should I discuss with my healthcare provider before taking acetaminophen and oxycodone?You should not use this medicine if you are allergic to acetaminophen (Tylenol) or oxycodone, or if:?? you have severe asthma or breathing problems;? you have a blockage in your stomach or intestines, including paralytic ileus; or? you have recently used alcohol, sedatives, tranquilizers, or other narcotic medications. Some medicines can interact with oxycodone and cause a serious condition called serotonin syndrome. Be sure your doctor knows if you also take medicine for depression, mental illness, Parkinson's disease, migraine headaches, serious infections, or prevention of nausea and vomiting. Ask your doctor before making any changes in how or when you take your medications. To make sure this medicine is safe for you, tell your doctor if you have:?? any type of breathing problem or lung disease;? liver disease, cirrhosis, or if you drink alcohol daily;? a history of drug abuse, alcohol addiction, or mental illness; ? kidney disease, urination problems;? problems with your gallbladder, pancreas, thyroid, or adrenal gland; ? a history of head injury, brain tumor, or seizures; or? if you use a sedative like Valium (diazepam, alprazolam, lorazepam, Ativan, Klonopin, Restoril, Tranxene, Versed, Xanax, and others).This medicine is more likely to cause breathing problems in older adults and people who are severely ill, malnourished, or otherwise debilitated.If you use oxycodone while you are , your baby could become dependent on the drug. This can cause life-threatening withdrawal symptoms in the baby after it is born. Babies born dependent on habit-forming medicine may need medical treatment for several weeks. Tell your doctor if you are or plan to become .Acetaminophen and oxycodone can pass into breast milk and may harm a nursing baby. You should not breast-feed while using this medicine.How should I take acetaminophen and oxycodone?Follow all directions on your prescription label. Oxycodone can slow or stop your breathing, especially when you start using this medicine or whenever your dose is changed. Never use this medicine in larger amounts, or for longer than prescribed. An overdose can damage your liver or cause . Tell your doctor if the medicine seems to stop working as well in relieving your pain.Oxycodone may be habit-forming, even at regular doses. Never share this medicine with another person, especially someone with a history of drug abuse or addiction. MISUSE OF NARCOTIC MEDICINE CAN CAUSE ADDICTION, OVERDOSE, OR , especially in a child or other person using the medicine without a prescription. Selling or giving away acetaminophen and oxycodone is against the law. Measure liquid medicine with a special dose-measuring spoon or medicine cup. If you do not have a dose-measuring device, ask your pharmacist for one.Do not crush, break, or open an extended-release pill. Swallow it whole to avoid exposure to a potentially fatal dose.If you need surgery, tell the surgeon ahead of time that you are using this medicine. You may need to stop using the medicine for a short time.Do not stop using this medicine suddenly after long-term use, or you could have unpleasant withdrawal symptoms. Ask your doctor how to safely stop using the medicine.Store at room temperature away from moisture and heat. Keep track of the amount of medicine used from each new bottle. Oxycodone is a drug of abuse and you should be aware if anyone is using your medicine improperly or without a prescription.Do not keep leftover acetaminophen and oxycodone pills or liquid. Ask your pharmacist where to locate a drug take-back disposal program. If there is no take-back program, flush any unused pills or liquid medicine down the toilet. Never crush or break an acetaminophen and oxycodone pill to inhale the powder or mix it into a liquid to inject the drug into your vein. What happens if I miss a dose?Since this medicine is used for pain, you are not likely to miss a dose. Skip any missed dose if it is almost time for your next scheduled dose. Do not use extra medicine to make up the missed dose.What happens if I overdose?Seek emergency medical attention or call the Poison Help line at . An overdose can be fatal, especially in a child or other person using this medicine without a prescription. Overdose symptoms may include slow breathing and heart rate, severe drowsiness, muscle weakness, cold and clammy skin, pinpoint pupils, and fainting.The first signs of an acetaminophen overdose include loss of appetite, nausea, vomiting, stomach pain, sweating, and confusion or weakness. What should I avoid while taking acetaminophen and oxycodone?Do not drink alcohol. Dangerous side effects or could occur.This medicine may impair your thinking or reactions. Avoid driving or operating machinery until you know how this medicine will affect you. Dizziness or severe drowsiness can cause falls or other accidents.Ask a doctor or pharmacist before using any other cold, allergy, pain, or sleep medication. Acetaminophen (sometimes abbreviated as APAP) is contained in many combination medicines. Taking certain products together can cause you to get too much acetaminophen which can lead to a fatal overdose. What are the possible side effects of acetaminophen and oxycodone?Get emergency medical help if you have signs of an allergic reaction: hives; difficulty breathing; swelling of your face, lips, tongue, or throat.In rare cases, acetaminophen may cause a severe skin reaction that can be fatal. This could occur even if you have taken acetaminophen in the past and had no reaction. Stop taking this medicine and call your doctor right away if you have skin redness or a rash that spreads and causes blistering and peeling. Like other narcotic medicines, oxycodone can slow your breathing. may occur if breathing becomes too weak.Call your doctor at once if you have:?? shallow breathing, slow heartbeat;? a light-headed feeling, like you might pass out;? confusion, unusual thoughts or behavior;? seizure (convulsions);? problems with urination; ? infertility, missed menstrual periods;? impotence, sexual problems, loss of interest in sex;? liver problems--nausea, upper stomach pain, itching, loss of appetite, dark urine, rosemary-colored stools, jaundice (yellowing of the skin or eyes); or? low cortisol levels--nausea, vomiting, loss of appetite, dizziness, worsening tiredness or weakness.Seek medical attention right away if you have symptoms of serotonin syndrome, such as: agitation, hallucinations, fever, sweating, shivering, fast heart rate, muscle stiffness, twitching, loss of coordination, nausea, vomiting, or diarrhea.Common side effects include:?? headache, drowsiness, tiredness;? nausea, vomiting, stomach pain, constipation;? blurred vision; or? dry mouth.This is not a complete list of side effects and others may occur. Call your doctor for medical advice about side effects. You may report side effects to FDA at 8-221-YBK-9795.What other drugs will affect acetaminophen and oxycodone?Narcotic (opioid) medication can interact with many other drugs and cause dangerous side effects or . Be sure your doctor knows if you also use:?? other narcotic medications--opioid pain medicine or prescription cough medicine;? drugs that make you sleepy or slow your breathing--a sleeping pill, muscle relaxer, sedative, tranquilizer, or antipsychotic medicine; or? drugs that affect serotonin levels in your body--medicine for depression, Parkinson's disease, migraine headaches, serious infections, or prevention of nausea and vomiting. This list is not complete. Other drugs may interact with acetaminophen and oxycodone, including prescription and isev-vxz-xuzoffh medicines, vitamins, and herbal products. Not all possible interactions are listed in this medication guide. Where can I get more information?Your pharmacist can provide more information about acetaminophen and oxycodone.Remember, keep this and all other medicines out of the reach of children, never share your medicines with others, and use this medication only for the indication prescribed.Every effort has been made to ensure that the information provided by [employer] ('[employer]') is accurate, up-to-date, and complete, but no guarantee is made to that effect. Drug information contained herein may be time sensitive. [employer] information has been compiled for use by healthcare practitioners and consumers in the [place] and therefore [employer] does not warrant that uses outside of the [place] are appropriate, unless specifically indicated otherwise. [employer]'s drug information does not endorse drugs, diagnose patients or recommend therapy. [employer] drug information is an informational resource designed to assist licensed healthcare practitioners in caring for their patients and/or to serve consumers viewing this service as a supplement to, and not a substitute for, the expertise, skill, knowledge and judgment of healthcare practitioners. The absence of a warning for a given drug or drug combination in no way should be construed to indicate that the drug or drug combination is safe, effective or appropriate for any given patient. [employer] does not assume any responsibility for any aspect of healthcare administered with the aid of information [employer] provides. The information contained herein is not intended to cover all possible uses, directions, precautions, warnings, drug interactions, allergic reactions, or adverse effects. If you have questions about the drugs you are taking, check with your doctor, nurse or pharmacist. Copyright 3865-4232 [employer] Version: 15.12. Revision Date: 08/22/2016. Thank you for choosing [facility] Normal [facility] Progress Note-Physicianon Progress Note-Physician ADMITTING DIAGNOSIS: Suture granuloma left hip.FINAL DIAGNOSIS: Suture granuloma left hip.CONSULTATIONS: Hospitalist Service.COMPLICATIONS: None.PROCEDURES PERFORMED: Irrigation debridement of suture granuloma left hipwith application of Wound VAC.INDICATIONS FOR ADMISSION: This is a 71-year-old female previously takento surgery for a bipolar hemiarthroplasty left hip. Please refer to theadmitting HISTORY AND PHYSICAL for further details.HOSPITALIZATION SUMMARY: On the day of admission, she was taken to theOperating Room for the debridement of the suture granuloma with thedrainage noted and her history of previous wound healing problems with needfor a Wound VAC. A Wound VAC was placed. She had a previous Wound VACplaced on the right knee because of difficulty with healing. We diddiscuss her protein calorie malnutrition and cigarette smoking status. Herre-evaluation today demonstrates no discomfort. She is afebrile. There isno growth noted on culture. Vital signs are stable. White blood cellcount is 6300.PLAN: She is being discharged with the Wound VAC with continued HomeHealth Nursing, Home Health Physical Therapy. We did discuss the problemsshe has had with delayed healing in the past and hope that this will healwith the Wound VAC and the continued management in the Wound Clinic. Iwill re-evaluate her in 2 to 3 weeks in the office for routinepostoperative care, sooner if needed.Corrine ElaineDictated: 02/13/2017 #[id number]: 02/13/2017 #[id number]: Karen Plunkett D.O. [facility] Comment on above: Result Comment: Elec tronically Signed By: Ryan Harrell DO\.br\Date and Time Signed: 02/18/17 15:27 EDT Coding Summary.on 02-17-2017 Coding Summary. CODING DATE: 017 FINAL [facility] DSC STATUS: SNF w/ Medicare Cert PAYOR: Medicare APC DESCRIPTION 5521 Level 1 Imaging without Contrast 5052 Level 2 Skin Procedures ADMIT DX: REASON FOR VISIT DX: T81.89XA Other complications of procedures, not elsewhere classified, initial encounter FINAL DX: PRINCIPAL: T81.89XA Other complications of procedures, not elsewhere classified, initial encounter SECONDARY: L92.3 Foreign body granuloma of the skin and subcutaneous tissue Z18.89 Other specified retained foreign body fragments Y83.1 Surgical operation with implant of artificial internal device as the cause of abnormal reaction of the patient, or of later complication, without mention of misadventure at the time of the procedure Z96.641 Presence of right artificial hip joint E46 Unspecified protein-calorie malnutrition F17.210 Nicotine dependence, cigarettes, uncomplicated J44.9 Chronic obstructive pulmonary disease, unspecified E03.9 Hypothyroidism, unspecified M06.9 Rheumatoid arthritis, unspecified Z85.038 Personal history of other malignant neoplasm of large intestine Z68.28 Body mass index (BMI) 28.0-28.9, adult PYMT PROC APC STAT DESCRIPTION DOCTOR NAME DATE 5051 T Debridement, Ryan Harrell DO 02/12/2017 subcutaneous tissue (includes epidermis and dermis, if performed); first 20 sq cm or less 20197 Anesthesia for Ryan Harrell DO 02/12/2017 procedures on the integumentary system on the extremities, anterior trunk and perineum; not otherwise specified NOTE: The code number assigned matches the documented diagnosis and / or procedure in the patient's chart. However, the narrative phrase printed from the coding software may appear abbreviated, or result in slightly different terminology. Coded By: Jenelle Lou Date Saved: 02/17/2017 08:43 am [facility] Consultation Noteon 02-17-20 Consultation Note Patient: ROMEO GONZALEZ Age: 71 years Sex: Female : 1945 Associated Diagnoses: None Author: Justine Ramachandran Basic Information Accompanied by: Family member. Source of history: Self. Referral source: Ryan Harrell DO. History limitation: None. Chief Complaint suture granuloma History of Present Illness 71 year old Caucasion female with past medical history significant for RA, hypothyroidism, current smoker 1/2 ppd x 30 years, COPD; Patient is status post left hip incision and debridement with wound vac placement secondary to suture granuloma; Patient is status post left bipolar hemiarthroplasty per Dr.Steven Harrell 01/18/17. Review of Systems Constitutional: Negative. Eye: Negative. Ear/Nose/Mouth/Throat: Negative. Respiratory: Cough, No shortness of breath, No wheezing. Cardiovascular: Negative. Gastrointestinal: No nausea, No vomiting, No diarrhea, No constipation Last bowel movement: Yesterday. Genitourinary: Negative. Hematology/Lymphatics: Negative. Endocrine: Negative. Immunologic: Immunocompromised. Musculoskeletal: Joint pain. Integumentary: suture granuloma left hip. Neurologic: Alert and oriented X4, No numbness, No tingling. Psychiatric: No anxiety, No depression. Health Status Allergies: Allergic Reactions (Selected)No Known Allergies Current medications: Medications (21) ActiveScheduled: (7)acetaminophen 1,000 mg 100 mL, IV Piggyback, s9itbrYSUxmki 2 gram 50 mL, IV Piggyback, n4vxmjkbfikxjicb 20 mg Cap-DR [F] 20 mg 1 cap(s), Oral, Dailyfondaparinux 2.5 mg/0.5 mL SubQ Tatyana [F] 2.5 mg 0.5 mL, SubCutaneous, qAMfurosemide 20 mg Tab [F] 20 mg 1 tab(s), Oral, Dailylevothyroxine 88 mcg (0.088 mg) Tab [F] 88 microgram 1 tab(s), Oral, Dailynicotine 21 mg/24 hr Transderm ER Film [F] 1 patch, TransDermal, DailyContinuous: (2)Lactated Ringers 1,000 mL 1,000 mL, IV, 150 mL/hrSodium Chloride 0.45% 1,000 mL 1,000 mL, IV, 80 mL/hrPRN: (12)acetaminophen 325 mg Tab UD [F] 650 mg 2 tab(s), Oral, u5qldfiptlvfuyksv-aqpcgakpdiz 325 mg-5 mg Tab [F] 1 tab(s), Oral, h7azewqdaufbljgsk-mrmyfffmdbt 325 mg-5 mg Tab [F] 2 tab(s), Oral, h1pgsgwvtdpskogix-tqzenvuyt 325 mg-5 mg Tab [F] 1 tab(s), Oral, c0riynpkxtzzsfhpy-afnqdaihi 325 mg-5 mg Tab [F] 2 tab(s), Oral, x1qrkipxmqro sodium 100 mg Cap [F] 100 mg 1 cap(s), Oral, BIDHYDROmorphone 2 mg/mL Inj [F] 1 mg 0.5 mL, IV Push, g7jkhhsaxhpegcx 2 mg/mL Inj [F] 4 mg 2 mL, IV Push, u2gpnzqBPXFBM 5 mg Tab UD [F] 5 mg 1 tab(s), Oral, x0slskfXFAXEJ 5 mg Tab UD [F] 10 mg 2 tab(s), Oral, b2wqzvyCOQQE 50 mg Tab [F] 50 mg 1 tab(s), Oral, q0lmzcxOOVHU 50 mg Tab [F] 100 mg 2 tab(s), Oral, q6hr Problem list: All ProblemsAt risk for falls / SNOMED CT 367739204 / PossibleProblem added when Risk for Falls Careplan was initiated.Impaired skin integrity / SNOMED CT 15603327 / ConfirmedProblem added on documentation of skin impairments.Smoker / IMO [id number] / ConfirmedAdded secondary to documentation in Social History. Histories Past Medical History: No active or resolved past medical history items have been selected or recorded. Family History: Procedure history: Incision AND drainage ([id number]) on 02/12/2017 at 71 Years.Comments:02/12/2017 13:15 - Rishi VALENCIA, Moira Flores, leftback surgery on 05/26/2015 at 69 Years.Comments:01/17/2017 18:16 - Nelson VALENCIA, Jbwnsw3945Ucpsi cancer ([id number]) on 05/26/2015 at 69 Years.Ear prosthesis ([id number]) on 05/26/2012 at 66 Years.Comments:02/12/2017 10:25 - Klwon ROMEO Onesimo earKnee arthroplasty ([id number]) on 05/26/2007 at 61 Years.rotator cuff on 05/26/2002 at 56 Years. Social History Social & Psychosocial HabitsNo Data Available. Physical Examination Vitals Signs (last 24 hrs) Last Charted Minimum MaximumTemp 36.3 (SEP 20 14:08) L 36 (SEP 20 12:55) 36.7 (SEP 20 10:08)Heart Rate 70 (SEP 20 14:08) 53 (SEP 20 12:30) 94 ([facility] 20 12:55)Resp Rate 16 (SEP 14:08) 3 (SEP 20 12:55) 23 (SEP 20 12:50)SBP 121 (SEP 20 14:08) 70 (SEP 20 12:07) 139 (SEP 20 13:40)DBP 71 (SEP 20 14:08) 47 (SEP 20 12:07) 78 (SEP 20 10:07)MAP 88 ([facility] 20 14:08) 88 (SEP 20 14:08) 95 (SEP 20 10:07)SpO2 99 (SEP 20 14:08) 94 (SEP 20 10:10) 100 (SEP 20 12:55) General: Alert and oriented, No acute distress. Appearance: Calm. Behavior: Cooperative. Skin: sallow. Eye: Pupils are equal, round and reactive to light, Extraocular movements are intact, Normal conjunctiva. HENT: Normocephalic, Normal hearing, Oral mucosa is moist. Neck: Supple, Non-tender, No lymphadenopathy. Respiratory: Breath sounds: Left, Lower lobe, Crackles present. Breath sounds: Upper lobe, clear. Breath sounds: Right, Anterior, Posterior, Upper lobe, clear. Breath sounds: Right, Lower lobe, Diminished. Support: Respiratory therapy treatment ( Flutter-mucous clearance device, Incentive spirometry ). Cardiovascular: Normal rate, Regular rhythm. Gastrointestinal: Soft, Non-tender, Normal bowel sounds. Genitourinary: No inguinal tenderness. Musculoskeletal Lower extremity exam: hip (left, mild, pain). Neurologic: Alert, Oriented. Cognition and Speech: Oriented, Speech clear and coherent. Psychiatric: Cooperative, Appropriate mood & affect. Integumentary: Warm. Integumentary exam: Left, hip wound vac/dressing managed by surgical services. . Health Maintenance Flu and pneumonia vaccinations as appropriate. Review / Management Results review: Labs (Last four charted values)Hgb 12.5 (FEB 12) Hct 37.6 (FEB 12) , Lab results 02/12/2017 12:28 EDT Fluid Culture NEG (In Progress) 02/12/2017 10:29 EDT WBC 6.9 E9/L RBC 4.4 E12/L Hgb 12.5 gm/dL Hct 37.6 % MCV 86.4 fL MCH 28.7 pg MCHC 33.2 gm/dL RDW 17.6 % HI Platelet 274.0 E9/L MPV 8.8 fL Neutro Auto 68.7 % Lymph Auto 18.5 % [place] Auto 9.4 % Eos Auto 2.7 % Basophil Auto 0.7 % Neutro Absolute 4.7 E9/L Lymph Absolute 1.3 E9/L [place] Absolute 0.6 E9/L Eos Absolute 0.2 E9/L Basophil Absolute 0.0 E9/L . Documentation reviewed: Case discussed with: Ivory García MD. Impression and Plan Course: Progressing as expected. 71 year old Caucasion female with past medical history significant for RA, hypothyroidism, current smoker 1/2 ppd x 30 years, COPD; Patient is status post left hip incision and debridement with wound vac placement secondary to suture granuloma; Patient is status post left bipolar hemiarthroplasty per Dr.Steven Harrell 01/18/17.PLAN:Status post left hip incision and debridement with wound vac placement POD # 0 secondary to left hip granuloma from recent left bipolar hemiarthroplasty 01/18/[address]Steven Harrell Managed by Dr.Steven Carey/OT- to eval treat and make recommendations Pain management -per surgical servicesEducation: Oral pain medication regimen, incentive spirometry while awake and bowel regimen to avoid constipationThank you for the opportunity to assist in the management of your patientHypothyroid-SynthroidH istory of rheumatoid arthritis-Hold LeflunamideTobacco abuse disorder with COPD -stable-Counseled on cessation, nicotine patchDVT Prophylaxis-SCDs,Disposition: Pt observation with discharge planning per surgical services. Education and Follow-up: Counseled: Patient, Regarding diagnosis, Regarding treatment, Regarding medications. Professional Services 18 minutes. [facility] Comment on above: Result Comment: Elec tronically Signed By: Justine Ramachandran\.br\Date and Time Signed: 02/12/17 15:00 EDT\.br\Electronically Co-Signed By: Ivory García MD\.br\Date and Time Co-Signed: 02/16/17 16:12 EDT Progress Note-Physicianon Progress Note-Physician Patient: JESSICA GONZALEZ Age: 71 years Sex: Female : 1945 Associated Diagnoses: None Author: Odette Arambula Basic Information 71 year old Caucasion female with past medical history significant for RA, hypothyroidism, current smoker 1/2 ppd x 30 years, COPD; Patient is status post left hip incision and debridement with wound vac placement secondary to suture granuloma; Patient is status post left bipolar hemiarthroplasty per Dr.Steven Harrell 01/18/17. Subjective Pleasant and cooperative, patient states she slept better last night, pain is well controlled and she is eager to be discharged home today. Patient is eating and drinking is normal, no abdominal complaints. .Patient denies chest pain/pressure, or palpitations, shortness of breath, nausea/vomiting or paresthesias. Educated on use of oral pain regimen for continuous control of pain level, importance of incentive spirometer ?10 per hour while awake and review of bowel regimen to avoid constipation in the postoperative period. Patient verbalized understanding of all information provided and demonstrated use of incentive spirometry. Plan of care reviewed with patient who denies any further questions or concerns at this time. Review of Systems Constitutional: Fatigue, Decreased activity, improving. Eye: Negative. Ear/Nose/Mouth/Throat: Negative. Respiratory: Negative. Cardiovascular: Negative. Gastrointestinal: Passing flatus. Last bowel movement: 1 days ago. Genitourinary: Negative. Hematology/Lymphatics: Negative. Endocrine: Negative. Immunologic: Negative. Musculoskeletal: Negative. Integumentary: Negative. Neurologic: Alert and oriented X4. Psychiatric: Negative. Health Status Allergies: Allergic Reactions (Selected)No Known Allergies Current medications: Medications (18) ActiveScheduled: (6)ceFAZolin 2 gram 50 mL, IV Piggyback, u3pibgynrhqhqzkc 20 mg Cap-DR [F] 20 mg 1 cap(s), Oral, Dailyfondaparinux 2.5 mg/0.5 mL SubQ Ttayana [F] 2.5 mg 0.5 mL, SubCutaneous, qAMfurosemide 20 mg Tab [F] 20 mg 1 tab(s), Oral, Dailylevothyroxine 88 mcg (0.088 mg) Tab [F] 88 microgram 1 tab(s), Oral, Dailynicotine 21 mg/24 hr Transderm ER Film [F] 1 patch, TransDermal, DailyContinuous: (0)PRN: (12)acetaminophen 325 mg Tab UD [F] 650 mg 2 tab(s), Oral, q1nayinrmgsajjifl-monwgozyzih 325 mg-5 mg Tab [F] 1 tab(s), Oral, m2jnlmqqvabgkpwub-pbkgyzuhocx 325 mg-5 mg Tab [F] 2 tab(s), Oral, s9krfxuofkoaoixrc-bisgcasae 325 mg-5 mg Tab [F] 1 tab(s), Oral, n9xpagzgymuiejkuw-ldchmqtuc 325 mg-5 mg Tab [F] 2 tab(s), Oral, x2yhrbdorqel sodium 100 mg Cap [F] 100 mg 1 cap(s), Oral, BIDHYDROmorphone 2 mg/mL Inj [F] 1 mg 0.5 mL, IV Push, i6gznxisavwvboc 2 mg/mL Inj [F] 4 mg 2 mL, IV Push, r7rnkahQDTMYO 5 mg Tab UD [F] 5 mg 1 tab(s), Oral, p7xdoysOPZXLC 5 mg Tab UD [F] 10 mg 2 tab(s), Oral, v8tcxfkCQRUT 50 mg Tab [F] 50 mg 1 tab(s), Oral, f8bupjcDPGLW 50 mg Tab [F] 100 mg 2 tab(s), Oral, q6hr Problem list: All ProblemsAt risk for falls / SNOMED CT 667087327 / PossibleProblem added when Risk for Falls Careplan was initiated.Impaired skin integrity / SNOMED CT 10073905 / ConfirmedProblem added on documentation of skin impairments.Smoker / IMO [id number] / ConfirmedAdded secondary to documentation in Social History. Histories Past Medical History: No active or resolved past medical history items have been selected or recorded. Family History: Procedure history: Incision AND drainage ([id number]) on 02/12/2017 at 71 Years.Comments:02/12/2017 13:15 - Rishi VALENCIA, Moira Swartzp, leftback surgery on 05/26/2015 at 69 Years.Comments:01/17/2017 18:16 - Nelson VALENCIA, Aoelbl3879Owpbs cancer ([id number]) on 05/26/2015 at 69 Years.Ear prosthesis ([id number]) on 05/26/2012 at 66 Years.Comments:02/12/2017 10:25 - Klwon DIAGNOSTIC SALES SPECIALIST, [place] earKnee arthroplasty ([id number]) on 05/26/2007 at 61 Years.rotator cuff on 05/26/2002 at 56 Years. Social History Social & Psychosocial Habitsalcohol, substance use?patient denies past or present usetobacco use - current. Objective Vitals Signs (last 24 hrs) Last Charted Minimum MaximumTemp 36.4 (FEB 13 03:40) L 36 (FEB 12 12:55) 36.7 (FEB 12 10:08)Heart Rate 61 (FEB 13 03:40) 53 (FEB 12 12:30) 94 (FEB 12 12:55)Resp Rate 16 (FEB 13 03:40) 3 (FEB 12 12:55) 23 (FEB 12 12:50)SBP 102 (FEB 13 03:40) 70 (FEB 12 12:07) 139 (FEB 12 13:40)DBP 60 (FEB 13 03:40) 47 (FEB 12 12:07) 78 (FEB 12 10:07)MAP 87 (FEB 12 19:35) 77 (FEB 12 15:25) 95 (FEB 12 10:07)SpO2 98 (FEB 13 03:40) 94 (FEB 12 10:10) 100 (FEB 12 12:55) General: Alert and oriented, No acute distress. Eye: Pupils are equal, round and reactive to light, Normal conjunctiva, Vision unchanged. HENT: Normocephalic, Normal hearing, Oral mucosa is moist. Neck: Supple, Non-tender, No lymphadenopathy. Respiratory: Lungs are clear to auscultation, Respirations are non-labored, Breath sounds are equal, Symmetrical chest wall expansion. Cardiovascular: Normal rate, Good pulses equal in all extremities, Normal peripheral perfusion, No edema, Apical is regular. Gastrointestinal: Soft, Non-tender, Non-distended, Normal bowel sounds. Musculoskeletal Normal strength. Lower extremity exam: hip tenderness. Integumentary: Warm, Dry, Left hip wound vac intact -area is managed per orthopedic sx., Not intact. Neurologic: Alert, No focal deficits. Psychiatric: Cooperative, Appropriate mood & affect. Review / Management Results review: All Results 02/13/2017 06:05 EDT WBC 6.3 E9/L RBC 3.8 E12/L LOW Hgb 10.8 gm/dL LOW Hct 32.9 % LOW MCV 87.3 fL MCH 28.5 pg MCHC 32.6 gm/dL RDW 18.0 % HI Platelet 249.0 E9/L MPV 8.7 fL Neutro Auto 61.7 % Lymph Auto 21.7 % [place] Auto 9.9 % Eos Auto 5.8 % Basophil Auto 0.9 % Neutro Absolute 3.9 E9/L Lymph Absolute 1.4 E9/L [place] Absolute 0.6 E9/L Eos Absolute 0.4 E9/L Basophil Absolute 0.1 E9/L BUN 18 mg/dL Creatinine 0.8 mg/dL eGFR >60 mL/min/1.73 m2 eGFR AA >60 mL/min/1.73 m2 Sodium Lvl 139 mmol/L Potassium Lvl 3.5 mmol/L Chloride 107 mmol/L CO2 27 mmol/L AGAP 9 mEq/L . Radiology results: X-ray, Reviewed radiologist's report. * Final Report *Reason For ExamPost OpPOWERSCRIBE REPORTIMPRESSION: SOFT TISSUE WOUND LATERALLY. OSTEOPOROSIS OF THE LEFT GREATER TROCHANTERRAISING THE POSSIBILITY OF EARLY DEVELOPING OSTEOMYELITIS.LEFT HIP PROSTHESIS IN SATISFACTORY ALIGNMENT AND POSITION AND UNCHANGED FROM01/18/2017.CLINICAL HISTORY: Recent left hip surgery. Persistent soft tissue wound.COMPARISON: 01/18/2017.FINDINGS: Total left hip prosthesis in satisfactory alignment and position. Nativebone appears to be intact. Degenerative changes overlie the right hip and rightfemoral neck.There is some irregularity overlying the soft tissues lateral to the left hipconsistent with recent surgery. No mass or discrete fluid collection in the softtissues. There is mild osteoporosis of the greater trochanter since previous study.This may be early changes of osteomyelitis. Clinical correlation needed.Signature Line FINAL REPORT Dictated: 02/12/2017 6:08 pm Titi Lopez MDSigned (Electronic Signature): 02/12/2017 6:08 pmSigned by: Titi Lopez MDTranscribed by: SALEEM Technologist: JACK REPORTThis document has an imageResult type: XR Hip 1 View Left + PelvisResult date: February 12, 2017 13:31 EDTResult status: Auth (Verified)Result title: XR Hip 1 View Left + PelvisPerformed by: Titi Lopez MD on February 12, 2017 18:08 EDTVerified by: Titi Lopez MD on February 12, 2017 18:08 EDTEncounter info: [id number], Ram Kan Mcgrath, Ambulatory/Same Day Surgery, 02/12/2017 - Documentation reviewed: Case discussed with: Ivory García MD. Condition: Stable. Impression and Plan Diagnosis: Suture granuloma (NCP04-NG T81.89XA, Admitting, Medical). Education and Follow-up: Counseled: Patient, Regarding diagnosis, Regarding treatment, Regarding medications. 71 year old Caucasion female with past medical history significant for RA, hypothyroidism, current smoker 1/2 ppd x 30 years, COPD; Patient is status post left hip incision and debridement with wound vac placement secondary to suture granuloma; Patient is status post left bipolar hemiarthroplasty per Dr.Steven Harrell 01/18/17.PLAN:Status post left hip incision and debridement with wound vac placement POD # 1 secondary to left hip suture granuloma from recent left bipolar hemiarthroplasty 01/18/17 performed and managed by Dr.Steven Harrell-Fluid cx - prelim - neg-PT/OT- to eval treat and make recommendations -Pain management -per surgical services-Education: Oral pain medication regimen, incentive spirometry while awake and bowel regimen to avoid constipation-Thank you for the opportunity to assist in the management of your patientAnemia?10.8-No active bleeding noted, hemodynamically stable-Trend CBC dailyHypothyroid-Continue levothyroxineProtein calorie malnutrition-Increase caloric intake and dietary maintenance of well balanced mealsHistory of rheumatoid arthritis-Hold Leflunamide - plan to resume in a.m. if ok w/ sxTobacco abuse disorder with COPD -stable-Counseled on cessation, nicotine patchDVT Prophylaxis-Deferred to surgical services?Arixtra-SCDs,Disposi tion: Pt observation with discharge planning per surgical services. This report was transcribed using voice recognition software. Every effort was made to ensure accuracy, however, inadvertently computerized jig bore operator mistakes may be present. [facility] Comment on above: Result Comment: Elec tronically Signed By: Odette Arambula\.br\Date and Time Signed: 02/13/17 12:59 EDT\.br\Electronically Co-Signed By: Ivory García MD\.br\Date and Time Co-Signed: 02/16/17 16:12 EDT C Fluidon 02-15-2017 Fluid Culture MicrobiologyPROCEDUR E: Fluid Culture [R1] Fluid BODY SITE: Hip LCOLLECTED DATE/TIME: 02/12/2017 12:28 EDT RECEIVED DATE/TIME: 02/12/2017 12:36 EDTSTART DATE/TIME: 02/12/2017 12:36 EDT FREE TEXT SOURCE: Left hip wound Ryan Tripathi DO, DO, StevenFINAL REPORTSFinal Report [] Verified Date/Time: 02/15/2017 13:47 EDTNo growth at 3 days.STAINSGram Stain Report [] Verified Date/Time: 02/12/2017 13:12 EDTOccasional White Blood Cells No organisms seen.Performing LocationsR1: This test was performed at: [facility], [address] [place] [address], [address] , [facility] Comment on above: Performed By: #### 2 [id number], [id number], 5178522, 21331609, 7661135, [id number] ####[address] [place] [address] Auto Diffon 02-13-2017 Basophils Auto #/vol (Bld) 0.1 E9/L Normal 0.0-0.2 [facility] Comment on above: Order Comment: Order Added by Discern Expert. Performed By: #### 2 693225, [id number], 5464494, 11920537, 4610352, [id number] ####[address] [place] [address] Basophils Auto #/vol (Bld) 0.9 % Normal 0.0-2.0 [facility] Comment on above: Order Comment: Order Added by Discern Expert. Performed By: #### 2 925480, 07313718, 2989251, 83523041, 6404218, 15884777 ####[address] [address] Eosinophils 0.4 E9/L Normal 0.0-0.5 [facility] Comment on above: Order Comment: Order Added by Discern Expert. Performed By: #### 2 378046, 93347722, 4304020, 43444199, 2236946, 02749331 ####[address] [place] [address] Eosinophils/100 leukocytes 5.8 % Normal 0.0-8.0 [facility] Comment on above: Order Comment: Order Added by Discern Expert. Performed By: #### 2 605986, 74464364, 4056227, 36279151, 9148468, 65876463 ####[address] [place] [address] Lymphocytes 1.4 E9/L Normal 1.0-4.0 [facility] Comment on above: Order Comment: Order Added by Discern Expert. Performed By: #### 2 848907, 74092550, 5590108, 33215946, 1836423, 93516529 ####[address] [place] [address] Lymphocytes/100 leukocytes 21.7 % Normal 14.0-50.0 [facility] Comment on above: Order Comment: Order Added by Mallory Expert. Performed By: #### 2 516495, 63314579, 1118051, 61584981, 8816817, 33811095 ####[facility] [address] [place] [address] Monocytes 0.6 E9/L Normal 0.2-1.0 [facility] Comment on above: Order Comment: Order Added by Mallory Expert. Performed By: #### 2 667293, 64799174, 5289126, 66555989, 4682942, 59114065 ####[facility] [address] [place] [address] Monocytes/100 leukocytes 9.9 % Normal 4.0-14.0 [facility] Comment on above: Order Comment: Order Added by Mallory Expert. Performed By: #### 2 122805, 10058716, 3631708, 29618695, 0265445, 84594046 ####[facility] [address] [place] [address] Neutrophils 3.9 E9/L Normal 2.0-7.5 [facility] Comment on above: Order Comment: Order Added by Mallory Expert. Performed By: #### 2 365739, 06990717, 5889154, 93151100, 2691595, 48048043 ####[address] [place] [address] Neutrophils/100 leukocytes 61.7 % Normal 36.0-75.0 [facility] Comment on above: Order Comment: Order Added by Mallory Expert. Performed By: #### 2 704865, 04624935, 2596878, 32593342, 2945425, 91765433 ####[facility] [address] [place] [address] BUNon 02-13-2017 Urea nitrogen 18 mg/dL Normal 5-21 [facility] Comment on above: Performed By: #### 2 331900, 76354344, 2022329, 59320242, 7939166, 86852059 ####[facility] [address] [place] [address] CBC w/ Auto Diffon 7 Erythrocyte distribution width Auto Ratio (RBC) 18.0 % High 10.9-14.2 [facility] Comment on above: Performed By: #### 2 268705, 52534327, 1124425, 13828053, 6327064, 63012851 ####[facility] [address] [place] [address] Erythrocytes (RBC) 3.8 E12/L Low 4.3-5.9 [facility] Comment on above: Performed By: #### 2 955946, 30580149, 8346602, 47634568, 4339775, 71727578 ####[address] [place] [address] Hematocrit (HCT) 32.9 % Low 34.0-46.0 [facility] Comment on above: Performed By: #### 2 677767, 86064322, 3723741, 16920973, 2461000, 17211290 ####[facility] [address] [place] [address] Hemoglobin mass conc (Bld) 10.8 g/dL Low 12.0-16.0 [facility] Comment on above: Result Comment: Resu lts Verified By Repeat Analysis Performed By: #### 2 625510, 12952911, 6640387, 54413676, 9564678, 81047164 ####[facility] [address] [place] [address] MCH 28.5 pg Normal 27.0-34.0 [facility] Comment on above: Performed By: #### 2 649547, 21573336, 1662516, 54048807, 3342136, 61600543 ####[facility] [address] [place] [address] MCHC mass conc (RBC) 32.6 g/dL Normal 31.4-39.3 [facility] Comment on above: Performed By: #### 2 732111, 78037704, 3690597, 44482878, 8563413, 68194001 ####[facility] [address] [place] [address] MCV 87.3 fL Normal 80.0-100.0 [facility] Comment on above: Performed By: #### 2 101008, 82825542, 9040102, 02765339, 1995369, 39148195 ####[address] [place] [address] Platelet mean volume (PMV) 8.7 fL Normal 6.4-10.8 [facility] Comment on above: Performed By: #### 2 374797, 55783663, 1538729, 80846204, 6444801, 65214615 ####[facility] [address] [place] [address] Platelets 249.0 E9/L Normal 150.0-500. 0 [facility] Comment on above: Performed By: #### 2 415155, 77978979, 9151733, 70995583, 6987177, 91730534 ####[facility] [address] [place] [address] WBC (Leukocytes) 6.3 E9/L Normal 4.0-11.0 [facility] Comment on above: Performed By: #### 2 829179, 77690984, 4044781, 05928430, 9517583, 89538663 ####[address] [place] [address] Creatinineon 02-13-2017 Creatinine 0.8 mg/dL Normal 0.5-1.3 [facility] Comment on above: Performed By: #### 2 963368, 75719077, 3115991, 43159259, 2010061, 14126049 ####[facility] [address] [place] [address] Discharge Note-Nursingon Discharge Note-Nursing Patient wound vac removed for discharge at 1600. Normal [facility] Interdisciplinary Note - Trevor e Manageron 02-13-2017 Interdisciplinary Note - Shell Machine Operator Pt. is aware of plan to discharge to [facility] today after getting wound vac placed. Normal [facility] Interdisciplinary Note - Nessa n 02-13-2017 Interdisciplinary Note - OT Patient completed OT evaluation and treatment. Patient plans to return to [facility] to complete her L [facility]AC[facility] rehab and will benefit from further education on wound vac management with ADL and transfer tasks. Normal [facility] Interdisciplinary Note - PTo n 02-13-2017 Interdisciplinary Note - PT PT Evaluation completed with an AM PAC 6 clicks score of 22/24. Pt functioning very well and able to perform at a Supervision level. Pt does need some assist for steps. Pt was able to ambulate over 500 feet with FWW. Would recommend returning to SNF for wound education as this is a new wound vac Normal [facility] Lyteson 02-13-2017 Anion gap 9 mmol/L Normal 6-16 [facility] Comment on above: Performed By: #### 2 887720, 57960220, 2588740, 48287661, 1048183, 71277265 ####[facility] [address] [place] [address] Chloride 107 mmol/L Normal 101-111 [facility] Comment on above: Performed By: #### 2 327921, 36690312, 6509814, 25114872, 2322355, 62368202 ####[facility] [address] [place] [address] CO2 27 mmol/L Normal 21-31 [facility] Comment on above: Performed By: #### 2 026857, 32002510, 8610350, 09478548, 8119021, 27846332 ####[facility] [address] [place] [address] Potassium molar conc 3.5 mmol/L Normal 3.5-5.3 [facility] Comment on above: Performed By: #### 2 731654, 31410418, 0324881, 54316812, 7992827, 19914124 ####[facility] [address] [place] [address] Sodium 139 mmol/L Normal 135-145 [facility] Comment on above: Performed By: #### 2 093379, 31298114, 3535139, 86192178, 2362758, 38352187 ####[facility] [address] [place] [address] Main OR Intraoperative Recor page 02-13-2017 Main OR Intraoperative Record IntraOp Document Type FT Summary Primary Physician: Ryan Harrell DO Finalized Date/Time: 02/13/17 11:02:00 Pt. Name: JESSICA GONZALEZ Shonna Sheridan/Sex: 1945 Female Med Rec #: [id number] Physician: Ryan Harrell DO Financial #: [id number] Pt. Type: A Room/Bed: 08[facility] [place] Admit/Disch: 02/12/17 09:21:00 - Institution: Case Times FT Entry 1 Patient Times In Room 02/12/17 11:50:00 Out Room 02/12/17 12:54:00 Procedure Times Start 02/12/17 12:21:00 Stop 02/12/17 12:43:00 Anesthesia Times Start 02/12/17 11:50:00 Stop 02/12/17 12:54:00 Last Modified By: Julieta Conrad CST 02/12/17 12:54:34 General Comments: 02/13/2017 Chart opened to review and send charges Edilma handy Case Attendance FT Entry 1 Entry 2 Entry 3 Case Attendee Susanna Reyna DO, Steven Blank RN, CNOR, [place] Role Performed Anesthesiologist Surgeon - Primary RESEARCH PSYCHOLOGIST Supervisor Road Administrator Time In 02/12/17 11:50:00 02/12/17 11:50:00 02/12/17 11:50:00 Time Out 02/12/17 12:54:00 02/12/17 12:39:00 02/12/17 12:54:00 Procedure HIP INCISION AND HIP INCISION AND HIP INCISION AND DEBRIDEMENT(Left) DEBRIDEMENT(Left) DEBRIDEMENT(Left) Comments Dr Szymanski supervision Last Modified By: Austin MARION, RN, Austin HWANGN, RN, Austin HWANGN, RN, Joyce 02/12/17 12:54:39 Joyce 02/12/17 12:54:39 Joyce 02/12/17 12:54:39 Entry 4 Entry 5 Entry 6 Case Attendee Austin MARION, RN, Vanessa Garcia CST, RN, Vanessa Cook Role Performed Warehouse Shipping Supervisor - Primary Scrub - Primary Warehouse Shipping Supervisor - Other Time In 02/12/17 11:50:00 02/12/17 11:50:00 02/12/17 11:50:00 Time Out 02/12/17 12:54:00 02/12/17 12:54:00 02/12/17 12:54:00 Procedure HIP INCISION AND HIP INCISION AND HIP INCISION AND DEBRIDEMENT(Left) DEBRIDEMENT(Left) DEBRIDEMENT(Left) Comments orientation Last Modified By: Austin MARION, ANNIE, Austin MARION, RN, Austin MARION, ANNIE, Joyce 02/12/17 12:54:39 Joyce 02/12/17 12:54:39 Joyce 02/12/17 12:54:39 Perioperative Protocols FT Pre-Care Text: Implements protective measures prior to operative or invasive procedure, confirms identity before the operative or invasive procedure, verifies operative procedure, surgical site, and laterality Entry 1 Procedure(s) HIP INCISION AND Patient Identity Birthday, ID Band DEBRIDEMENT(Left) Verified (select at Check, Patient least 2): Participation Consents / H and P Anesthesia Consent, Operative Site Present Verified HandP, Surgery/Procedure Marking Verified Consent Surgical Site Yes Laterality Verified Yes Verified Procedure Verified Yes Correct Patient Yes Position Verified Availability Equipment, Medication Prep Dry n/a Verified (If Applicable) PreOp Antibiotic No Time Out Susanna Reyna, Given Participants Ryan Harrell DO, Blank RN, CNOR, Amber Mohamdu, Austin MARION, RN, Jose Cook CST, Cleve Garcia RN, Vanessa Kilpatrick Time Out Complete 02/12/17 12:14:00 Outcomes Met? Yes Last Modified By: Austin MARION RN, Kelly 02/12/17 12:24:24 Post-Care Text: The patient is free from signs and symptoms of injury caused by extraneous objects Allergy Information FT Pre-Care Text: Verifies allergies Entry 1 Allergies Reviewed? Yes Allergies Reviewed Self/Patient With Outcomes Met? Yes Last Modified By: Austin MARION RN, Kelly 02/12/17 10:55:50 Post-Care Text: The patient received appropriate medication(s) safely administered during the perioperative period Surgical Procedures FT Entry 1 Procedure Description Procedure HIP INCISION AND Modifiers Left DEBRIDEMENT Surgeon Description LEFT HIP IandD and wound vac placement( 4cm long/1cm wide/3 cm deep) Primary Procedure Yes Primary Surgeon Ryan Harrell DO 02/12/17 12:21:00 Stop 02/12/17 12:43:00 Anesthesia Type General Surgical Service Orthopedics Wound Class 1 - Clean Last Modified By: Austin MARION RN, Kelly 02/12/17 12:46:00 General Case Data FT Pre-Care Text: Classifies surgical wound, implements aseptic technique, initiates traffic control Entry 1 Case Information OR OR 4 FT Case Level Level 4 Wound Class 1 - Clean Specialty Orthopedics ASA Class 2 Preop Diagnosis SUTURE GRANULOMA LEFT Postop Same As Preop Yes HIP/protein calorie malnutrition/cigarette smoker Postop Diagnosis SUTURE GRANULOMA LEFT Outcomes Met? Yes HIP/protein calorie malnutrition/cigarette smoker Last Modified By: Austin MARION RN, Kelly 02/12/17 12:34:05 Post-Care Text: The patient is free from signs and symptoms of infection Skin Assessment (Pre Procedure) FT Pre-Care Text: Implements protective measures to prevent skin/ tissue injury due to thermal or mechanical sources Evaluates for signs and symptoms of physical injury to skin and tissue Entry 1 Skin Integrity Intact, [place], Warm, and Skin Abnormality Yes Dry Abnormality Location left hip with red and Outcomes Met? Yes open area with clear drainage Last Modified By: Austin MARION RN, Kelly 02/12/17 12:34:34 Post-Care Text: The patient is free from signs and symptoms of injury caused by extraneous objects Patient Positioning FT Pre-Care Text: Identifies physical alterations that require additional precautions for procedure-specific positioning, verifies presence of prosthetics or corrective devices, positions the patient, evaluates the patient for signs and symptoms of injury as a result of positioning Entry 1 Procedure HIP INCISION AND Body Position Lateral, left side up DEBRIDEMENT(Left) Feet Uncrossed? Yes Left Arm Position Secured Across Chest Right Arm Position Extended on Padded Arm Left Leg Position Extended Board Right Leg Position Extended Positioning Device Demayo Hip Positioner, Pillow Under Head Large, Pillow Large Between Knees, Pillow Support Under Arm Press Points Checked Yes By Ryan Harrell DO, Brown CAA, Carly C, Austin MARION, RN, Jacey Cook RN, CNOR, Amber Mohamud Outcomes Met? Yes Last Modified By: Austin MARION RN, Joyce 02/12/17 12:37:54 Post-Care Text: The patient is free from signs and symptoms of injury related to positioning Patient Care Devices FT Pre-Care Text: Implements protective measures to prevent skin/ tissue injury due to thermal or mechanical sources Entry 1 Entry 2 Entry 3 Equipment Type CAUTERY UNIT[F] DEMAYO LATERAL INTERPULSE[F] POSITIONER [F] Equipment Number 4 Equipment Setting 50-50 Outcomes Met? Yes Yes Yes Last Modified By: Austin MARION, ANNIE, Austin MARION, RN, Austin MARION, ANNIE, Joyce 02/12/17 10:58:21 Joyce 02/12/17 10:58:21 Joyce 02/12/17 10:58:21 Entry 4 Entry 5 Entry 6 Equipment Type MISTRAL FORCED AIR MONITOR CHARGE SURGERY BORIS SUCTION UNIT [F] WARMING SYSTEM UNIT[F] [F] Equipment Number [id number] Equipment Setting high Outcomes Met? Yes Yes Yes Last Modified By: Austin MARION, ANNIE, Austin MARION, RN, Austin MARION, ANNIE, Joyce 02/12/17 10:58:21 Joyce 02/12/17 10:58:21 Joyce 02/12/17 12:38:31 Post-Care Text: The patient is free from signs and symptoms of injury caused by extraneous objects Transport To OR FT Pre-Care Text: Transports according to individual needs. Evaluates for signs and symptoms of skin and tissue injury as a result of transfer or transport Entry 1 Via Cart By Austin MARION, Joyce VALENCIA Safety Precautions Side Rails Up Outcomes Met? Yes Last Modified By: Austin MARION RN, Joyce 02/12/17 10:58:50 Post-Care Text: The patient is free from signs and symptoms of injury related to transfer/transport Cautery FT Pre-Care Text: Implements protective measures to prevent injury due to electrical sources, and evaluates for signs and symptoms of electrical injury Entry 1 ESU Identification ESU Settings Cut 50 Coag 50 ESU Grounding Pad Site Left Arm Hair Removal Pad No Site Pre Pad Site Clear and Intact Post Pad Site Clear and Intact Condition Condition Grounding Pad Austin MARION RN, Placed By Joyce Outcomes Met? Yes Last Modified By: Austin MARION RN, Kelly 02/12/17 12:38:54 Post-Care Text: The patient if free from signs and symptoms of electrical injury Counts Verification FT Pre-Care Text: Performs required counts Entry 1 Entry 2 Procedure(s) HIP INCISION AND HIP INCISION AND DEBRIDEMENT(Left) DEBRIDEMENT(Left) Type Initial Final Items Sponges, Sharps Sponges, Sharps Status Correct Correct Time By Vanessa Garcia CST, Vanessa Garcia CST, Austin MARION RN, Vanessa Poon RN Outcomes Met? Yes Yes Last Modified By: Austin MARION RN, Austin MARION RN, Kelly 02/12/17 10:59:59 Joyce 02/12/17 12:39:12 Post-Care Text: The patient is free from signs and symptoms of injury caused by extraneous objects Skin Prep FT Pre-Care Text: Performs skin preparations Entry 1 Procedure HIP INCISION AND Prep Area left hip DEBRIDEMENT(Left) Prep Agents Chloraprep/Dry Prior to Draping Hair Removal Methods Not Indicated By Austin MARION RN, Outcomes Met? Yes Joyce Last Modified By: Austin MARION RN, Kelly 02/12/17 11:00:20 Post-Care Text: The patient is free from signs and symptoms of infection Departure From OR FT Pre-Care Text: Transports according to individual needs. Evaluates for signs and symptoms of skin and tissue injury as a result of transfer or transport. Entry 1 Via Patient Bed Safety Precautions Side Rails Up PostOp Destination PACU Transported By Vanesas Poon RN Patient Status Stable Skin. Condition Intact, [place], Warm, and Dry Airway Maintenance Oxygen in Use? Yes Airway Device Simple Mask Flow Rate 8 L Outcomes Met? Yes Last Modified By: Austin MARION RN, Kelly 02/12/17 12:39:37 Post-Care Text: The patient is free from signs and symptoms of injury related to transfer/transport General Comments: report given to pacu staff Dressing/Packing FT Pre-Care Text: Administers care to wound sites Entry 1 Type Dressing Site and Details left hip with wound vac Outcomes Met? Yes Last Modified By: Austin MARION RN, Kelly 02/12/17 12:39:51 Post-Care Text: The patient is free from signs and symptoms of infection Medication Administration FT Pre-Care Text: Verifies allergies, administers prescribed medications and solutions, administers prescribed antibiotic therapy and immunizing agents as ordered, evaluates response to medications Administers prescribed medications and solutions Entry 1 Expiration Date Yes Outcomes Met? Yes Verified Last Modified By: Austin MARION RN, Kelly 02/12/17 12:39:57 Post-Care Text: The patient received appropriate medication(s) safely administered during the perioperative period [facility] please see scanned medication reconcilliation form for medications used at the field during the procedure. Cultures and Specimens FT Pre-Care Text: Manages specimen handling and disposition Manages culture specimen collection Entry 1 Cultures Ordered Yes Culture Disposition Lab Culture Source left hip fluid Specimens Ordered Yes Specimen Disposition Designated OR Area Frozen Section Times Outcomes Met? Yes Last Modified By: Austin MARION RN, Kelly 02/12/17 12:40:25 Post-Care Text: The patient is free from signs and symptoms of injury caused by extraneous objects The patient is free from signs and symptoms of infection Temperature Control Entry 1 Fluid/[place] Unit Mistral warming system Body Site Other, see comments Comments upper body lateral left Last Modified By: Austin MARION RN, Kelly 02/12/17 12:41:07 Case Comments Finalized By: Julieta Conrad CST Document Signatures Signed By: Austin MARION RN, Kelly 02/12/17 12:54 Austin MARION RN, Kelly 02/12/17 13:08 Austin MARION RN, Kelly 02/12/17 12:59 Julieta Conrad CST 02/13/17 11:02 Normal [facility] eGFRon 02-13-2017 eGFR (black) mL/min/{1.73_m2} Normal >=59 [facility] Comment on above: Order Comment: Order added by Discern Expert. Result Comment: eGFR is race adjusted. AA=. Performed By: #### 2 [id number], 68037613, 1018115, 48294042, 3979519, [id number] ####[facility] [id number] eGFR (non-black) mL/min/{1.73_m2} Normal >=59 [facility] Comment on above: Order Comment: Order added by Discern Expert. Result Comment: Digital Campaign Specialist alida kidney disease could be indicated at eGFR's of less than 60 mL/min/1.73m2. Kidney failure is indicated at less than 15 mL/min/1.73m2. Performed By: #### 2 895605, [id number], 2877584, 46274698, 8737148, [id number] ####[facility] [address] [place] [address] Anesthesia Consultationon Anesthesia Consultation Patient: JESSICA GONZALEZ Age: 71 years Sex: Female : 1945 Associated Diagnoses: None Author: Seth Keller Jr., DO Preoperative Information Anesthesia history: Patient History: Pt./ family denies any personal or family hx of problems/difficulties with anesthesia.. Re-eval prior to induction: Inital eval reviewed: No significant interval change, NPO 10 hours.. Review of Systems Constitutional: See nursing assessment.. Cardiovascular: Cardiac risk assessment performed. Pt. denies any significant change in their cv hx.. Respiratory: Pt. denies any signicant change in their respiratory status.. Neurologic: Pt. denies any acute neurological changes.. Health Status Allergies: Allergic Reactions (Selected)No Known Allergies, Allergies (1) Active ReactionNo Known Allergies None Documented Current medications: (Selected) Inpatient MedicationsOrderedLactated Ringers IV Tatyana 1000 mL 1,000 mL: 1,000 mL, IV, 150 mL/hr, Routine, Start date 02/12/17 10:00:00 EDT, 6.7 hour(s), Total volume (mL): 1,000PrescriptionsPrescribedP ercocet 325 mg-5 mg Tab: 1 tab(s), Oral, q4hr as needed for pain, 20 tab(s), Refill(s) 0aspirin 325 mg Oral EC Tab: 325 mg = 1 tab(s), Oral, BID, X 30 day(s), # 60 tab(s), Refills(s) 0, other reason (Rx)Documented MedicationsDocumentedCipro 250 mg Tab: 250 mg = 1 tab(s), Oral, q12hr, Refills(s) 0, Infection or prophylaxis for antibioticsLasix 20 mg Tab: 20 mg = 1 tab(s), Oral, Daily, # 30 tab(s), Refills(s) 0Milk of Magnesia: = 30 mL, Oral, Daily, PRN Other (see comment), constipation, Refills(s) 0Nicoderm C-Q: 1 patch, TransDermal, Daily, Refill(s) 0, Smoking cessationSynthroid 88 mcg Tab: 88 microgram = 1 tab(s), Oral, Daily, # 30 tab(s), Refills(s) 0leflunomide 20 mg Tab: 20 mg = 1 tab(s), Oral, Daily, # 30 tab(s), Refills(s) 0, Medications (1) ActiveScheduled: (0)Continuous: (1)Lactated Ringers 1,000 mL 1,000 mL, IV, 150 mL/hrPRN: (0) Problem list: All ProblemsAt risk for falls / SNOMED CT [id number] / PossibleProblem added when Risk for Falls Careplan was initiated.Impaired skin integrity / SNOMED CT [id number] / ConfirmedProblem added on documentation of skin impairments.Smoker / IMO [id number] / ConfirmedAdded secondary to documentation in Social History., Active Problems (3)At risk for falls Impaired skin integrity Smoker Histories Past Medical History: No active or resolved past medical history items have been selected or recorded. Family History: Procedure history: back surgery on 05/26/2015 at 69 Years.Comments:01/17/2017 18:16 - Nelson VALENCIA, [id number] cancer ([id number]) on 05/26/2015 at 69 Years.Ear prosthesis ([id number]) on 05/26/2012 at 66 Years.Comments:02/12/2017 10:25 - Evi ROMEO, Sandraright earKnee arthroplasty ([id number]) on 05/26/2007 at 61 Years.rotator cuff on 05/26/2002 at 56 Years. Social History Social & Psychosocial HabitsNo Data Available. Physical Examination Vital Signs 02/12/2017 10:15 EDT Heart Rate Monitored 78 bpm SpO2 97 % 02/12/2017 10:13 EDT Heart Rate Monitored 82 bpm SpO2 94 % 02/12/2017 10:10 EDT Systolic Blood Pressure 120 mmHg Diastolic Blood Pressure 76 mmHg Blood Pressure Location Left arm Mean Arterial Pressure, Monitered 91 mmHg 02/12/2017 10:10 EDT Heart Rate Monitored 84 bpm SpO2 94 % 02/12/2017 10:10 EDT Apical Heart Rate 84 bpm Respiratory Rate 20 br/min 02/12/2017 10:08 EDT Temperature Oral 36.7 DegC 02/12/2017 10:07 EDT Systolic Blood Pressure 128 mmHg Diastolic Blood Pressure 78 mmHg Blood Pressure Location Right arm Mean Arterial Pressure, Monitered 95 mmHg Vitals Signs (last 24 hrs) Last Charted Minimum MaximumTemp 36.7 (FEB 12 10:08) 36.7 ([facility] 10:08) 36.7 ([facility] 10:08)Heart Rate 78 ([facility] 10:15) 78 ([facility] 10:15) 84 ([facility] 20 10:10)Resp Rate 20 ([facility] 20 10:10) 20 ([facility] 20 10:10) 20 ([facility] 20 10:10)SBP 120 ([facility] 20 10:10) 120 ([facility] 20 10:10) 128 ([facility] 20 10:07)DBP 76 ([facility] 10:10) 76 ([facility] 20 10:10) 78 ([facility] 10:07)MAP 91 ([facility] 10:10) 91 ([facility] 20 10:10) 95 ([facility] 10:07)SpO2 97 ([facility] 10:15) 94 ([facility] 20 10:10) 97 ([facility] 10:15) Measurements from flowsheet : Measurements 02/11/2017 13:11 EDT Height/Length Measured 155 cm Height/Length Measured 155 cm [place] Body Weight Calculated 47.854 kg BSA Measured 1.7 m2 Body Mass Index Measured 28.05 kg/m2 Weight Measured 67.4 kg Weight Measured 67.4 kg Pain assessment: Pain Assessment 02/12/2017 10:10 EDT Pain Symptoms Self Report No, able to self report Primary Pain Location Hip Primary Pain Laterality Left Numeric Pain Scale 0 = No pain Numeric Pain Score 0 . Airway: Normal oral/pharyngeal anatomy.. Respiratory: Adequate air exchange.. Cardiovascular: Adequate perfusion and function. Review / Management Results review: Lab results 02/12/2017 10:29 EDT WBC 6.9 E9/L RBC 4.4 E12/L Hgb 12.5 gm/dL Hct 37.6 % MCV 86.4 fL MCH 28.7 pg MCHC 33.2 gm/dL RDW 17.6 % HI Platelet 274.0 E9/L MPV 8.8 fL Neutro Auto 68.7 % Lymph Auto 18.5 % [place] Auto 9.4 % Eos Auto 2.7 % Basophil Auto 0.7 % Neutro Absolute 4.7 E9/L Lymph Absolute 1.3 E9/L [place] Absolute 0.6 E9/L Eos Absolute 0.2 E9/L Basophil Absolute 0.0 E9/L , Labs (Last four charted values)Hgb 12.5 (FEB 12) Hct 37.6 (FEB 12) . Plan [place] [employer] Anesthesiologists (ASA) physical status classification: Class II. Anesthetic Preoperative Plan Anesthesia: General. . Anesthetic plan, risks, benefits, and alternatives discussed with the patient and/or family. Pt. and/or family present and agree to proceed as planned.. Normal [facility] Auto Diffon 02-12-2017 Basophils Auto #/vol (Bld) 0.7 % Normal 0.0-2.0 [facility] Comment on above: Order Comment: Order Added by Discern Expert. Performed By: #### 2 [id number], [id number], 8926024, 38644040, 2771384, [id number] ####[facility] [address] [place] [address] Basophils Auto #/vol (Bld) 0.0 E9/L Normal 0.0-0.2 [facility] Comment on above: Order Comment: Order Added by Mallory Expert. Performed By: #### 2 712911, [id number], 3587285, 28041144, 0040915, 88712976 ####[facility] [address] [place] [address] Eosinophils 0.2 E9/L Normal 0.0-0.5 [facility] Comment on above: Order Comment: Order Added by Discern Expert. Performed By: #### 2 050021, 64246550, 1287661, 71932830, 9327357, 73151071 ####[facility] [address] [place] [address] Eosinophils/100 leukocytes 2.7 % Normal 0.0-8.0 [facility] Comment on above: Order Comment: Order Added by Discern Expert. Performed By: #### 2 147453, 55259735, 6075438, 90380209, 7205638, 41997078 ####[facility] [address] [place] [address] Lymphocytes 1.3 E9/L Normal 1.0-4.0 [facility] Comment on above: Order Comment: Order Added by Mallory Expert. Performed By: #### 2 599712, 39018827, 7753019, 58498834, 3264178, 38265085 ####[address] [place] [address] Lymphocytes/100 leukocytes 18.5 % Normal 14.0-50.0 [facility] Comment on above: Order Comment: Order Added by Mallory Expert. Performed By: #### 2 986878, 17514386, 3958355, 93697484, 6017708, 35658349 ####[facility] [address] [place] [address] Monocytes 0.6 E9/L Normal 0.2-1.0 [facility] Comment on above: Order Comment: Order Added by Mallory Expert. Performed By: #### 2 839404, 34012496, 6362369, 07088047, 6183585, 09802836 ####[facility] [address] [place] [address] Monocytes/100 leukocytes 9.4 % Normal 4.0-14.0 [facility] Comment on above: Order Comment: Order Added by Mallory Expert. Performed By: #### 2 853411, 19721273, 7308848, 32233564, 8467311, 04046406 ####[facility] [address] [place] [address] Neutrophils 4.7 E9/L Normal 2.0-7.5 [facility] Comment on above: Order Comment: Order Added by Discern Expert. Performed By: #### 2 977736, 37482928, 0476188, 07976736, 9606584, 95719394 ####[address] [place] [address] Neutrophils/100 leukocytes 68.7 % Normal 36.0-75.0 [facility] Comment on above: Order Comment: Order Added by Discern Expert. Performed By: #### 2 906210, 10979616, 3175750, 03863776, 6299645, 70259757 ####[address] [address] CBC w/ Auto Diffon 7 Erythrocyte distribution width Auto Ratio (RBC) 17.6 % High 10.9-14.2 [facility] Comment on above: Performed By: #### 2 906738, 89933638, 1975860, 88623477, 2296949, 23371883 ####[address] [address] Erythrocytes (RBC) 4.4 E12/L Normal 4.3-5.9 [facility] Comment on above: Performed By: #### 2 720400, 81917465, 1311625, 49311867, 3915039, 23108001 ####[address] [address] Hematocrit (HCT) 37.6 % Normal 34.0-46.0 [facility] Comment on above: Performed By: #### 2 054988, 41853329, 5394798, 54954040, 1631269, 08168761 ####[address] [place] [address] Hemoglobin mass conc (Bld) 12.5 g/dL Normal 12.0-16.0 [facility] Comment on above: Performed By: #### 2 500498, 92396686, 5199035, 55502397, 0071700, 07342549 ####[facility] [address] [place] [address] MCH 28.7 pg Normal 27.0-34.0 [facility] Comment on above: Performed By: #### 2 425860, 48168591, 0746129, 65845776, 6643851, 98085517 ####[address] [place] [address] MCHC mass conc (RBC) 33.2 g/dL Normal 31.4-39.3 [facility] Comment on above: Performed By: #### 2 905036, 57430334, 0080163, 62712532, 4981181, 13358316 ####[place] [address] MCV 86.4 fL Normal 80.0-100.0 [facility] Comment on above: Performed By: #### 2 352152, 33860386, 7789939, 91185841, 9449520, 82703397 ####[place] [address] Platelet mean volume (PMV) 8.8 fL Normal 6.4-10.8 [facility] Comment on above: Performed By: #### 2 928634, 02481466, 8529673, 21594104, 3828097, 29776170 ####[address] [place] [address] Platelets 274.0 E9/L Normal 150.0-500. 0 [facility] Comment on above: Performed By: #### 2 880558, 37102518, 5119591, 76475175, 2231076, 44469650 ####[address] [place] [address] WBC (Leukocytes) 6.9 E9/L Normal 4.0-11.0 [facility] Comment on above: Performed By: #### 2 624135, 50862479, 8932257, 84880514, 3350814, 50118190 ####[address] [place] [address] History and Physicalon 02-12 History and Physical HOSPITAL REGULATION S: ALL Positive Important Negative Findings Shall BeRpeteredDNADINE ADMITTED: 02/12/2017INTERVAL HISTORY AND PHYSICAL EXAMINATIONCHIEF COMPLAINT: Left hip drainage.HISTORY OF PRESENT ILLNESS: This is a 71 year old female taken to Surgery01/18/17 for a left hip bipolar hemiarthroplasty for a displaced subcapitalfracture. She initially did well in the postoperative period but recentlyhas had drainage only on Tuesdays . She has been evaluated in the nursinghome by a nutritional consultants for her protein calorie malnutrition.She has no complaints, no pain, states that her hip feels great. Drainagehas been noted which has been clear in the central portion of the incision.There has been no purulent drainage noted. She has remained afebrile.PHYSICAL EXAMINATION: She is alert and oriented, afebrile, verycomfortable on today's examination. The inspection about the left hipincision does demonstrate an area in the center with clear drainage noted.There is no foul odor, there is no purulence noted. No erythema orinduration. She has excellent motion in the right hip in flexion,abduction and rotation, without discomfort. She is full weight bearingwithout discomfort.X-RAY: Radiograph of the left hip bipolar hemiarthroplasty obtained in theoffice today demonstrates satisfactory and unchanged alignment.IMPRESSION: Suture granuloma, left hip bipolar hemiarthroplasty.PLAN: We discussed a small area of persistent intermittent drainage in theleft hip. We discussed the possibility of a suture granuloma. This doesnot appear to be an infectious process, but this was discussed as apossibility, recommendations for return to surgery with incision anddebridement with delayed closure of this wound. She does understand thepossibility that this may go deep and may possibly require a one stageprosthetic exchange. Hopefully this will not be necessary. All questionswere answered to her understanding and satisfaction. We will continue thenutritional support through the [facility].Ryan Harrell D.O.aekDictated: 02/11/2017 #[id number] 02/11/2017 #[id number]: Ryan Harrell D.O. Normal [facility] Comment on above: Result Comment: Elec tronically Signed By: Ryan Harrell DO\.br\Date and Time Signed: 02/12/17 11:06 EDT Interdisciplinary Note - Trevor e Manageron 02-12-2017 Interdisciplinary Note - Shell Machine Operator Taylor from [facility] came to this RN/CDI to report that she received a call from Dr. Harrell's office stating that this patient will need a wound vac immediately after surgery (today at 1200) and she is from the [facility] with [facility]. [facility] and it was decided that [facility] would be the ones to order the wound vac since she is a patient there. Then this RN received a call from Teresa at Dr. Harrell's office regarding the situation. After discussion with Teresa this RN called [facility] and spoke to the [facility]. It was determined that [facility] does use [facility] wound vacs but they need to an ordered. Since the timeframe is short it was decided that this RN would assist with filling out wound vac with hopes of it being delivered today or tomorrow to be used at [facility].Place in status was also discussed with JULISA. Called wound clinic and spoke to Kristen regarding hospital wound vac process in which it was determined that the surgery nurse would place the hospital vac. Then Teresa was called back at Dr. Harrell's and planned discussed. Determined that patient would be admitted as observation due to nutritional status and concern for drainage after surgery in which Dr. Harrell would like the wound vac placed augie. Discussed that per Kristen the surgery nurse would be the one to place the hospital vac after surgery is complete. This RN will complete paperwork and send to [facility] with delivery to the hospital augie which would be able to go with the patient to the [facility]. When the wound vac arrives to the hospital room the dressing does not need to be removed however the portable wound vac can be hooked up to the tubing and portable vac (If nurse needs help with this, this RN could assist). After [facility] wound vac arrives and hooked up then patient should be able to discharge back to [facility] if Dr. Harrell agrees.Spoke to Mayank at [facility] and she reports that [facility] needs to call and confirm the payment of the wound vac since [facility] does not cover in the SNF then [place] can be [place] [facility] Mayank states that wound measurements on form are not needed since patient is going to SNF. Called and spoke to PAGE Sheldon at the [facility] contact info given and Pito to call and approve wound vac. Await delivery. Telly [facility] Main OR PACU I Recordon 01-25 Main OR PACU I Record PACU Phase I Document Type FT Summary Primary Physician: Ryan Harrell DO Finalized Date/Time: 02/12/17 14:10:26 Pt. Name: JESSICA GONZALEZ Shonna Sheridan/Sex: 1945 Female Med Rec #: [id number] Physician: Ryan Harrell DO Financial #: [id number] Pt. Type: A Room/Bed: 08 Admit/Disch: 02/12/17 09:21:00 - Institution: Case Times PACU I FT Pre-Care Text: Identifies barriers to communication and implements measures to provide psychological support Develops individualized plan of care, and ensures continuity of care Maintains patient's dignity and privacy, and maintains patient confidentiality Identifies and reports philosophical, cultural, and spiritual beliefs and values Identifies individual values and wishes concerning care Implements aseptic technique, and administers prescribed antibiotic therapy and immunizing agents as ordered Evaluates postoperative tissue perfusion Implements thermoregulation measures, and monitors body temperature Evaluates postoperative respiratory status Evaluates postoperative cardiac status Evaluates postoperative neurological status Assesses pain control, collaborated in initiating patient-controlled analgesia and implements alternative methods of pain control Verifies allergies, administers prescribed medications and solutions, evaluates response to medications Entry 1 In PACU I 02/12/17 12:55:00 Discharge from PACU 02/12/17 13:45:00 I Outcomes Met? Yes Last Modified By: Gunner VALENCIA, Garima Kilpatrick 02/12/17 14:10:13 Post-Care Text: The patient demonstrates knowledge of the expected response to the operative or invasive procedure The patient's care is consistent with the individualized perioperative plan of care The patient's right to privacy is maintained The patient's value system, lifestyle, ethnicity, and culture are considered, respected, and incorporated into the perioperative plan of care The patient participates in decisions affecting his or her perioperative plan of care The patient is free from signs and symptoms of infection The patient has wound/tissue perfusion consistent with or improved from baseline levels established preoperatively The patient is at or returning to normothermia at the conclusion of the immediate postoperative period The patient's respiratory function is consistent with or improved from baseline levels established preoperatively The patient's cardiovascular status is consistent with or improved from baseline levels established preoperatively The patient's cardiovascular status is consistent with or improved from baseline levels established preoperatively The patient demonstrates and/or reports adequate pain control throughout the perioperative period The patient received appropriate medication(s), safely administered during the perioperative period General Comments: 1310-xray at bedside 1330-xrays complete Acuity Level PACU I FT Entry 1 Start Time 02/12/17 12:55:00 Stop Time 02/12/17 13:45:00 Acuity Level Acuity Level I Last Modified By: Garima Martino RN 02/12/17 14:10:22 Finalized By: Garima Martino RN Document Signatures Signed By: Garima Martino RN 02/12/17 14:10 Normal [facility] Main OR Preoperative Recordo n 02-12-2017 Main OR Preoperative Record PreOp Document Type FT Summary Primary Physician: Ryan Harrell DO Finalized Date/Time: 02/12/17 11:52:37 Pt. Name: JESSICA GONZALEZ/Sex: 1945 Female Med Rec #: [id number] Physician: Ryan Harrell DO Financial #: [id number] Pt. Type: Room/Bed: [place] [address] Admit/Disch: 02/12/17 09:21:29 - Institution: Case Times PreOp FT Pre-Care Text: Verifies consent for planned procedure, identifies individual values and wishes concerning care, includes family members in perioperative teaching Entry 1 Patient Times. In Pre Surgery 02/12/17 09:50:00 Out Pre Surgery 02/12/17 11:48:00 Outcomes Met? Yes Last Modified By: Austin MARION RN, Kelly 02/12/17 11:52:32 Post-Care Text: The patient participates in decisions affecting his or her perioperative plan of care Finalized By: Austin MARION RN, Kelly Document Signatures Signed By: Austin MARION RN, Kelly 09/20/17 11:52 [facility] Operative Reporton 02-12- 7 Operative Report Date of Surgery: 02/12/2017SURGEON: Ryan Harrell D.O.PREOPERATIVE DIAGNOSIS:1. Suture granuloma, left hip incision2. Protein calorie malnutrition3. Cigarette smoker with history of previous Wound V.A.C placementPOSTOPERATIVE DIAGNOSIS:1. Suture granuloma, left hip incision2. Protein calorie malnutrition3. Cigarette smoker with history of previous Wound V.A.C placementOPERATION:1. Left hip irrigation and debridement, skin, subcutaneous tissue andmuscle2. Wound V.A.C. placementANESTHESIA: GeneralINTRAOPERATIVE BLOOD LOSS: MinimalCONDITION ON TRANSPORT TO RECOVERY: Stable with symmetrical distal pulsesand leg lengthSPONGE AND NEEDLE COUNT: CorrectSPECIMEN: Specimen #1 deep specimen stat Gram stain, culture andsusceptibilityINDICATIONS FOR SURGERY: This is a 71 year old female admitted severalweeks ago for a left subcapital hip fracture treated with a bipolarhemiarthroplasty. She tolerated the procedure satisfactorily. Initially inthe postoperative period satisfactory healing was noted. Approximately tendays ago drainage was noted from the left hip incision. She does have ahistory of wound healing problems, had previous wound V.A.C. placementafter her right knee surgery. She has no known history ofmethicillin-resistant Staphylococcus aureus or chronic skin infectionsotherwise. We did discuss her protein calorie malnutrition, cigarettesmoker status and recommendation for irrigation, debridement and woundV.A.C. placement. Her preoperative lab shows a white blood cell count of6,900 with no left shift. She has remained afebrile.PROCEDURE: Site and side verification were performed in the PreoperativeHolding Area. The procedure as scheduled is reviewed. The appropriate timeout procedure is performed. This defect measures approximately 1 cm inlength and 5 mm in width. Marginal excision of the open area does leave nowdeep to the effect of approximately 4 cm long x 1.5 cm wide. Withexploration and deep irrigation the iliotibial band deep fascia is intact.Copious irrigation is performed. There is a capsule developing. Nopurulence. This is clear fluid only. A stat Gram stain, culture andsusceptibility is obtained from the deep distal area and sent to the Lab asspecimen #1. With no defect in the iliotibial band and no clinicalevidence of an infectious process copious irrigation is performed andintravenous antibiotics are administered. The debridement is performedsharply with rongeurs and curettes as well as a scalpel to leave asatisfactory bleeding bed for wound V.A.C. placement. The wound V.A.C. isplaced per protocol and connected. The patient is then transported toRecovery in satisfactory condition with symmetric leg lengths havingtolerated the anesthetic and the procedure well.Ryan Harrell D.O.lkrDictated: 02/12/2017 #[id number]: 02/12/2017 #[id number]: Karen Plunkett D.O. [facility] Comment on above: Result Comment: Elec tronically Signed By: Ryan Harrell DO\.br\Date and Time Signed: 02/12/17 16:06 EDT XR Chest 2 Viewson 7 XR Chest 2 Views Exam Date/Time:2016 09:49 EDTReason for Exam:P.A.T.ReportIMPRESSION: NO EVIDENCE OF ACTIVE CHEST DISEASE.CLINICAL HISTORY: P.A.T.. Smoker.COMMENT: The heart is normal in size. There are apparent mediastinal and hilar granulomatouscalcifications. The lungs appear hyperinflated. No infiltration nor pleural effusionis evident.There are prominent multilevel degenerative changes involving the thoracic spine.There are hypertrophic degenerative changes of both shoulders. There is a metallicsurgical screw transfixing the left glenohumeral joint (which is partially includedwithin the [id number]). FINAL REPORT Dictated: 02/12/2017 2:42 pm Percy Logan M.D. Signed (Electronic Signature): 02/12/2017 2:42 pm Signed by: Percy Logan M.D. Transcribed by: SALEEM Technologist: CHARBEL [facility] XR Hip 1 View Left + Pelviso n 02-12-2017 XR Hip 1 View Left + Pelvis Exam Date/Time:02/12/2017 13:31 EDTReason for Exam:Post OpReportIMPRESSION: SOFT TISSUE WOUND LATERALLY. OSTEOPOROSIS OF THE LEFT GREATER TROCHANTERRAISING THE POSSIBILITY OF EARLY DEVELOPING OSTEOMYELITIS.LEFT HIP PROSTHESIS IN SATISFACTORY ALIGNMENT AND POSITION AND UNCHANGED FROM01/18/2017.CLINICAL HISTORY: Recent left hip surgery. Persistent soft tissue wound.COMPARISON: 01/18/2017.FINDINGS: Total left hip prosthesis in satisfactory alignment and position. Nativebone appears to be intact. Degenerative changes overlie the right hip and rightfemoral neck.There is some irregularity overlying the soft tissues lateral to the left hipconsistent with recent surgery. No mass or discrete fluid collection in the softtissues. There is mild osteoporosis of the greater trochanter since previous study.This may be early changes of osteomyelitis. Clinical correlation needed. FINAL REPORT Dictated: 02/12/2017 6:08 pm Titi Lopez MD. Signed (Electronic Signature): 02/12/2017 6:08 pm Signed by: Titi Lopez MD Transcribed by: SALEEM Technologist: FEMI Varner [facility] Coding Summary.on 01-31-2017 Coding Summary. CODING DATE: 017 FINAL [facility] DSCH STATUS: SNF w/ Medicare Cert PAYOR: Medicare Grouper: 470 MS-DRG Major joint replacement or reattachment of lower extremity w/o DETENTION Low Trim 0 High Trim 999 301 APR-DRG HIP JOINT REPLACEMENT Severity of Illness Minor Risk of Mortality Moderate ADMIT DX: S72.012A Unspecified intracapsular fracture of left femur, initial encounter for closed fracture REASON FOR VISIT DX: FINAL DX: PRINCIPAL: S72.012A Y Unspecified intracapsular fracture of left femur, initial encounter for closed fracture SECONDARY: D62 N Acute posthemorrhagic anemia M06.9 Y Rheumatoid arthritis, unspecified E03.9 Y Hypothyroidism, unspecified J44.9 Y Chronic obstructive pulmonary disease, unspecified F17.200 Y Nicotine dependence, unspecified, uncomplicated Z96.651 Y Presence of right artificial knee joint Z85.038 1 Personal history of other malignant neoplasm of large intestine PROCEDURES DOCTOR NAME DATE [id number] Replacement of Left Hip Joint, Ryan Harrell DO 01/18/2017 Femoral Surface with Synthetic Substitute, Uncemented, Open Approach 38916Y7 Transfusion of Nonautologous Ivory García MD 01/19/2017 Red Blood Cells into Peripheral Vein, Percutaneous Approach [id number] Transfusion of Nonautologous Raquel MEAD, Hasan 01/19/2017 Red Blood Cells into Peripheral Vein, Percutaneous Approach NOTE: The code number assigned matches the documented diagnosis and / or procedure in the patient's chart. However, the narrative phrase printed from the coding software may appear abbreviated, or result in slightly different terminology. Coded By: Barbara Chau Date Saved: 01/21/2017 09:32 am Normal [facility] Coding Summary. CODING DATE: 017 FINAL [facility] DSCH STATUS: SNF w/ Medicare Cert PAYOR: Medicare Grouper: 470 MS-DRG Major joint replacement or reattachment of lower extremity w/o DETENTION Low Trim 0 High Trim 999 301 APR-DRG HIP JOINT REPLACEMENT Severity of Illness Minor Risk of Mortality Moderate ADMIT DX: S72.012A Unspecified intracapsular fracture of left femur, initial encounter for closed fracture REASON FOR VISIT DX: FINAL DX: PRINCIPAL: S72.012A Y Unspecified intracapsular fracture of left femur, initial encounter for closed fracture SECONDARY: D62 N Acute posthemorrhagic anemia M06.9 Y Rheumatoid arthritis, unspecified E03.9 Y Hypothyroidism, unspecified J44.9 Y Chronic obstructive pulmonary disease, unspecified F17.200 Y Nicotine dependence, unspecified, uncomplicated Z96.651 Y Presence of right artificial knee joint Z85.038 1 Personal history of other malignant neoplasm of large intestine PROCEDURES DOCTOR NAME DATE [id number] Replacement of Left Hip Joint, Ryan Harrell DO 01/18/2017 Femoral Surface with Synthetic Substitute, Uncemented, Open Approach 44335U6 Transfusion of Nonautologous Raquel MEAD, Hassully 01/19/2017 Red Blood Cells into Peripheral Vein, Percutaneous Approach [id number] Transfusion of Nonautologous Raquel MEAD, Hasan 01/19/2017 Red Blood Cells into Peripheral Vein, Percutaneous Approach NOTE: The code number assigned matches the documented diagnosis and / or procedure in the patient's chart. However, the narrative phrase printed from the coding software may appear abbreviated, or result in slightly different terminology. Coded By: Barbara Chau Date Saved: 01/21/2017 09:32 am Normal [facility] [email or web address] - [email or web address] Officeon 0 01-30-2017 [employer] Office From: Laura Pratt RN To: Ryan Harrell DO; Sent: 01/20/2017 08:43:54 EDT !Subject: General Message Due Date/Time: 01/21/2017 08:43:[address] Harrell.Documentation Request Based on the documentation in the medical record, this patient has has been admitted with or diagnosed as having one or more bone fractures.The following is also documented in the medical record:01/17 ortho consult: of left hip pain which has been present for the past five days. She denies a fall or injury to the left hip. [facility] radiograph of the left hip is here for review. It demonstrates a displaced subcapital fracture of the left proximal femur. 01/18 Operative report: This is repaired to the posterior aspect of the femur with Ethibond needle passage through the osteoporotic bone.Based on your medical judgment, can you further clarify the precise type, location, laterality, etiology and cause? Select all that apply:[___] In response to this query:Cause:[___] Traumatic [___] Chronic [___] Non-traumatic compression fracture [___] Stress fracture [___] Due to Osteoporosis [___] Due to malignancy [___] Pathological fracture [___] Other: [___] Unable to determine[___] The subject matter of this query is not relevant at this timeIn responding to this request, please exercise your independent professional judgment. The fact that a question is asked does not imply that any particular answer is desired or expected. Thank you!Please add any applicable diagnoses to your consult (01/17), daily progress notes.Laura, TARIQExt. [phone] [facility] Progress Note-Physicianon Progress Note-Physician PROGRESS NOTEShe has no complaints. She is up in a chair visiting with family.EXAMINATION: Left hip dressing is clean, dry and intact. There is mildswelling of the left leg as expected. There is no distal neurovasculardeficit. Leg lengths are equal. She moves her ankles well.PLAN: We discussed at length the operative pathology, the recommendationagain [place] [facility] [place]. She is inagreement with this. She is having minimal pain, did well with therapytoday, has no complaints, and we will anticipate transfer to a skillednursing facility of her choice tomorrow.Ryan Harrell D.O.aekDictated: 01/19/2017 #[id number]: 01/20/2017 #[id number]: Ryan Harrell D.O. Normal [facility] Comment on above: Result Comment: Elec tronically Signed By: Ryan Harrell DO\.br\Date and Time Signed: 01/30/17 17:35 EDT Auto Diffon 01-20-2017 Basophils Auto #/vol (Bld) 0.4 % Normal 0.0-2.0 [facility] Comment on above: Order Comment: Order Added by Discern Expert. Performed By: #### 2 579230, 48482105, 5280727, 85444841, 8053067, 34276574 ####[facility] [address] [place] [address] Basophils Auto #/vol (Bld) 0.0 E9/L Normal 0.0-0.2 [facility] Comment on above: Order Comment: Order Added by Discern Expert. Performed By: #### 2 292439, 54113512, 4595894, 19176307, 7156573, 20658606 ####[facility] [address] [place] [address] Eosinophils 0.4 E9/L Normal 0.0-0.5 [facility] Comment on above: Order Comment: Order Added by Discern Expert. Performed By: #### 2 166973, 28860291, 2258378, 97709270, 4756498, 54050188 ####[facility] [address] [place] [address] Eosinophils/100 leukocytes 4.8 % Normal 0.0-8.0 [facility] Comment on above: Order Comment: Order Added by Discern Expert. Performed By: #### 2 727350, 04361682, 5161858, 00596020, 1757886, 43143339 ####[facility] [address] [place] [address] Lymphocytes 1.1 E9/L Normal 1.0-4.0 [facility] Comment on above: Order Comment: Order Added by Mallory Expert. Performed By: #### 2 921352, 12892953, 6111561, 17651142, 2724642, 81337945 ####[facility] [address] [place] [address] Lymphocytes/100 leukocytes 12.8 % Low 14.0-50.0 [facility] Comment on above: Order Comment: Order Added by Mallory Expert. Performed By: #### 2 400826, 63774114, 7393027, 59403795, 1706183, 01466267 ####[facility] [address] [place] [address] Monocytes 0.9 E9/L Normal 0.2-1.0 [facility] Comment on above: Order Comment: Order Added by Mallory Expert. Performed By: #### 2 832480, 81389490, 6905757, 99111195, 9548838, 87222578 ####[facility] [address] [place] [address] Monocytes/100 leukocytes 11.0 % Normal 4.0-14.0 [facility] Comment on above: Order Comment: Order Added by Mallory Expert. Performed By: #### 2 963149, 78001524, 9122194, 20663132, 3550603, 85314444 ####[facility] [address] [place] [address] Neutrophils 5.9 E9/L Normal 2.0-7.5 [facility] Comment on above: Order Comment: Order Added by Mallory Expert. Performed By: #### 2 084364, 47623172, 1943608, 77460336, 7913022, 78277045 ####[facility] [address] [place] [address] Neutrophils/100 leukocytes 71.0 % Normal 36.0-75.0 [facility] Comment on above: Order Comment: Order Added by Mallory Expert. Performed By: #### 2 147419, 23834660, 9582649, 38686734, 6271070, 00259019 ####[facility] [address] [place] [address] BUNon 01-20-2017 Urea nitrogen 10 mg/dL Normal 5-21 [facility] Comment on above: Performed By: #### 2 353929, 81485007, 2570592, 05426509, 6838407, 61288006 ####[facility] [address] [place] [address] CBC w/ Auto Diffon 7 Erythrocyte distribution width Auto Ratio (RBC) 19.3 % High 10.9-14.2 [facility] Comment on above: Performed By: #### 2 945152, 52755948, 7894557, 79522083, 6777611, 47991194 ####[facility] [address] [place] [address] Erythrocytes (RBC) 3.7 E12/L Low 4.3-5.9 [facility] Comment on above: Performed By: #### 2 286839, 19828398, 9421009, 76384111, 2434466, 98703283 ####[place] [place] [address] Hematocrit (HCT) 32.0 % Low 34.0-46.0 [facility] Comment on above: Performed By: #### 2 604111, 59412151, 3596236, 70130268, 8891673, 65177813 ####[facility] [address] [place] [address] Hemoglobin mass conc (Bld) 10.5 g/dL Low 12.0-16.0 [facility] Comment on above: Performed By: #### 2 855479, 96704822, 4280588, 06609524, 6175712, 52496466 ####[facility] [address] [place] [address] MCH 28.3 pg Normal 27.0-34.0 [facility] Comment on above: Performed By: #### 2 368556, 63098522, 3092813, 98166832, 2042805, 71483624 ####[facility] [address] [place] [address] MCHC mass conc (RBC) 32.7 g/dL Normal 31.4-39.3 [facility] Comment on above: Performed By: #### 2 378496, 61098280, 3408327, 91247122, 0105586, 57629295 ####[facility] [address] [place] [address] MCV 86.5 fL Normal 80.0-100.0 [facility] Comment on above: Performed By: #### 2 931661, 15671532, 8916257, 64550955, 0527454, 49424039 ####[address] [place] [address] Platelet mean volume (PMV) 8.3 fL Normal 6.4-10.8 [facility] Comment on above: Performed By: #### 2 354747, 46749265, 5794448, 07231964, 9925515, 76910684 ####[address] [place] [address] Platelets 267.0 E9/L Normal 150.0-500. 0 [facility] Comment on above: Performed By: #### 2 481431, 85434579, 9870763, 01115043, 0985593, 92593701 ####[address] [place] [address] WBC (Leukocytes) 8.3 E9/L Normal 4.0-11.0 [facility] Comment on above: Performed By: #### 2 503304, 14600729, 3954915, 34649562, 4356772, 99383399 ####[address] [place] [address] Creatinineon 01-20-2017 Creatinine 0.8 mg/dL Normal 0.5-1.3 [facility] Comment on above: Performed By: #### 2 613831, 36261691, 2206470, 46715533, 7431238, 31837846 ####[facility] [address] [place] [address] Discharge Note-Nursingon Discharge Note-Nursing pt taken to the pt pick-up for d/c to the Andrew Varner [facility] Discharge Summaryon 01-21-20 Discharge Summary Patient: ROMEO GONZALEZ Age: 71 years Sex: Female : 1945 Associated Diagnoses: None Author: ANASTASIYA MEAD, GLADYS Radford Discharge Information Discharge Summary Information: Admit Date/Time: 01/17/17 17:21 Discharge Date/Time: 01/20/17 12:52 Admitting Physician: Ryan Harrell DO Referring Physician for Admission: Consulting Physicians: Ryan Harrell DO, MD, Ivory Admitting Diagnoses: Discharge Diagnoses: Fracture of unspecified part of neck of left femur, subsequent encounter for closed fracture with malunion Prescription and Home Meds: acetaminophen-oxycodone (Percocet 325 mg-5 mg Tab) 1 tab(s) Oral q4hr, 20 tab(s), Start: 01/20/2017, 0 Refill(s) aspirin (aspirin 325 mg Oral EC Tab) 325 mg, 1 tab(s), Oral, BID, for 30 day(s), 60 tab(s), 0 Refill(s) furosemide (Lasix 20 mg Tab) 20 mg, 1 tab(s), Oral, Daily, 30 tab(s), 0 Refill(s) leflunomide (leflunomide 20 mg Tab) 20 mg, 1 tab(s), Oral, Daily, 30 tab(s), 0 Refill(s) levothyroxine (Synthroid 88 mcg Tab) 88 microgram, 1 tab(s), Oral, Daily, 30 tab(s), 0 Refill(s) Results Review General results Most recent results All 01/20/2017 05:22 EDT WBC 8.3 E9/L RBC 3.7 E12/L LOW Hgb 10.5 gm/dL LOW Hct 32.0 % LOW MCV 86.5 fL MCH 28.3 pg MCHC 32.7 gm/dL RDW 19.3 % HI Platelet 267.0 E9/L MPV 8.3 fL Neutro Auto 71.0 % Lymph Auto 12.8 % LOW [place] Auto 11.0 % Eos Auto 4.8 % Basophil Auto 0.4 % Neutro Absolute 5.9 E9/L Lymph Absolute 1.1 E9/L [place] Absolute 0.9 E9/L Eos Absolute 0.4 E9/L Basophil Absolute 0.0 E9/L BUN 10 mg/dL Creatinine 0.8 mg/dL eGFR >60 mL/min/1.73 m2 eGFR AA >60 mL/min/1.73 m2 Sodium Lvl 139 mmol/L Potassium Lvl 3.5 mmol/L Chloride 105 mmol/L CO2 25 mmol/L AGAP 13 mEq/L Physical Examination Vitals Signs (last 24 hrs) Last Charted Minimum MaximumTemp 36.7 (JAN 20 11:11) 36.2 (JAN 19 15:43) 37.0 (JAN 19 21:21)Heart Rate 77 (JAN 20 11:12) 74 (JAN 20 01:06) 89 (JAN 19 18:48)Resp Rate 16 (JAN 20 11:12) 16 (JAN 19 17:15) 20 (JAN 19 15:43)SBP 103 (JAN 20 11:12) 102 (JAN 19 15:43) 121 (JAN 19 17:15)DBP 70 (JAN 20 11:12) 61 (JAN 19 16:10) 77 (JAN 19 23:26)MAP 81 (JAN 20 11:12) 76 (JAN 19 16:10) 91 (JAN 19 17:15)SpO2 90 (JAN 20 08:00) 90 (JAN 20 07:27) 97 (JAN 19 16:10) General: Alert and oriented, No acute distress. Eye: Extraocular movements are intact, Normal conjunctiva. HENT: Normocephalic. Neck: Supple, Non-tender. Respiratory: Lungs are clear to auscultation, Respirations are non-labored, Breath sounds are equal. Cardiovascular: Normal rate, Regular rhythm, No murmur, No gallop. Gastrointestinal: Soft, Non-tender, Non-distended. Musculoskeletal Normal range of motion. Integumentary: Warm. Neurologic: Alert, Oriented, Cranial Nerves II-XII are grossly intact. Psychiatric: Cooperative, Appropriate mood & affect. Hospital Course This is a 71-year-old female with history of hypothyroidism, rheumatoid arthritis, COPD who was transferred from an outside hospital on January 17 with a left displaced femoral neck fracture. She was seen and evaluated by Dr. harrell in orthopedic surgery. Patient had bipolar hemiarthroplasty of her left hip on the same day as she was transferred to our hospital. She was monitored postoperatively and did not have any complications. DVT prophylaxis and pain management for done. Patient was ambulating with a walker with our physical therapists without difficulty. Her pain was well controlled. She was discharged to an acute rehabilitation facility on January 20. Dr. Harrell recommended aspirin 325 mg twice daily for postoperative DVT prophylaxis. Patient was given Percocet as needed for pain control in the acute rehabilitation facility as well. Discharge Plan Discharge Time Discharge time > 30 min. Discharge Summary Plan Discharge Status: improved. Normal [facility] Comment on above: Result Comment: Elec tronically Signed By: GLADYS CHAPMAN MD\.br\Date and Time Signed: 01/20/17 13:10 EDT Inpatient Clinical Summaryon 01-20-2017 Inpatient Clinical Summary [place] [id number] Clinical Summary Person Information:Name: JESSICA GONZALEZ Age: 71 Years : 1945 12:00 AM Sex: Female PCP: STUART ZAMORA DO Marital Status:Single Race:White Ethnicity:Non- or Language:Bahraini Visit Id: Visit Reason:LEFT HIP FRACTURE Speciality: Acuity: Enc Type: Inpatient Med Service: Medical Arrival:01/17/2017 5:21 PM Discharge: Dispo Type: Address:[address] [place] [id number] Provider Notes: Patient: JESSICA GONZALEZ Age: 71 years Sex: Female : 1945 Associated Diagnoses: None Author: GLADYS CHAPMAN MD Discharge Information Discharge Summary Information: Admit Date/Time: 01/17/17 17:21 Discharge Date/Time: 01/20/17 12:52 Admitting Physician: Ryan Harrell DO Referring Physician for Admission: Consulting Physicians: Ryan Harrell DO, MD, Ivory Admitting Diagnoses: Discharge Diagnoses: Fracture of unspecified part of neck of left femur, subsequent encounter for closed fracture with malunion Prescription and Home Meds: acetaminophen-oxycodone (Percocet 325 mg-5 mg Tab) 1 tab(s) Oral q4hr, 20 tab(s), Start: 01/20/2017, 0 Refill(s) aspirin (aspirin 325 mg Oral EC Tab) 325 mg, 1 tab(s), Oral, BID, for 30 day(s), 60 tab(s), 0 Refill(s) furosemide (Lasix 20 mg Tab) 20 mg, 1 tab(s), Oral, Daily, 30 tab(s), 0 Refill(s) leflunomide (leflunomide 20 mg Tab) 20 mg, 1 tab(s), Oral, Daily, 30 tab(s), 0 Refill(s) levothyroxine (Synthroid 88 mcg Tab) 88 microgram, 1 tab(s), Oral, Daily, 30 tab(s), 0 Refill(s) Results Review General results Most recent results All 01/20/2017 05:22 EDT WBC 8.3 E9/L RBC 3.7 E12/L LOW Hgb 10.5 gm/dL LOW Hct 32.0 % LOW MCV 86.5 fL MCH 28.3 pg MCHC 32.7 gm/dL RDW 19.3 % HI Platelet 267.0 E9/L MPV 8.3 fL Neutro Auto 71.0 % Lymph Auto 12.8 % LOW [place] Auto 11.0 % Eos Auto 4.8 % Basophil Auto 0.4 % Neutro Absolute 5.9 E9/L Lymph Absolute 1.1 E9/L [place] Absolute 0.9 E9/L Eos Absolute 0.4 E9/L Basophil Absolute 0.0 E9/L BUN 10 mg/dL Creatinine 0.8 mg/dL eGFR >60 mL/min/1.73 m2 eGFR AA >60 mL/min/1.73 m2 Sodium Lvl 139 mmol/L Potassium Lvl 3.5 mmol/L Chloride 105 mmol/L CO2 25 mmol/L AGAP 13 mEq/L Physical Examination Vitals Signs (last 24 hrs) Last Charted Minimum MaximumTemp 36.7 (JAN 20 11:11) 36.2 (JAN 19 15:43) 37.0 (JAN 19 21:21)Heart Rate 77 (JAN 20 11:12) 74 (JAN 20 01:06) 89 (JAN 19 18:48)Resp Rate 16 (JAN 20 11:12) 16 (JAN 19 17:15) 20 (JAN 19 15:43)SBP 103 (JAN 20 11:12) 102 (JAN 19 15:43) 121 (JAN 19 17:15)DBP 70 (JAN 20 11:12) 61 (JAN 19 16:10) 77 (JAN 19 23:26)MAP 81 (JAN 20 11:12) 76 (JAN 19 16:10) 91 (JAN 19 17:15)SpO2 90 (JAN 20 08:00) 90 (JAN 20 07:27) 97 (JAN 19 16:10) General: Alert and oriented, No acute distress. Eye: Extraocular movements are intact, Normal conjunctiva. HENT: Normocephalic. Neck: Supple, Non-tender. Respiratory: Lungs are clear to auscultation, Respirations are non-labored, Breath sounds are equal. Cardiovascular: Normal rate, Regular rhythm, No murmur, No gallop. Gastrointestinal: Soft, Non-tender, Non-distended. Musculoskeletal Normal range of motion. Integumentary: Warm. Neurologic: Alert, Oriented, Cranial Nerves II-XII are grossly intact. Psychiatric: Cooperative, Appropriate mood & affect. Hospital Course This is a 71-year-old female with history of hypothyroidism, rheumatoid arthritis, COPD who was transferred from an outside hospital on January 17 with a left displaced femoral neck fracture. She was seen and evaluated by Dr. harrell in orthopedic surgery. Patient had bipolar hemiarthroplasty of her left hip on the same day as she was transferred to our hospital. She was monitored postoperatively and did not have any complications. DVT prophylaxis and pain management for done. Patient was ambulating with a walker with our physical therapists without difficulty. Her pain was well controlled. She was discharged to an acute rehabilitation facility on January 20. Dr. Harrell recommended aspirin 325 mg twice daily for postoperative DVT prophylaxis. Patient was given Percocet as needed for pain control in the acute rehabilitation facility as well. Discharge Plan Discharge Time Discharge time > 30 min. Discharge Summary Plan Discharge Status: improved. Diagnosis:Closed displaced fracture of left femoral neck with malunion Problems Active Smoker Smoking Status:Current Every Day Smoker Functional Status:Sensory Deficits: Wears glassesHistory of Falls: Mobility Assistance Prior to Admission: IndependentADLs: Moderate assistanceCurrent Level of Assistance for Self-Care/Mobility: Cognitive Status: Allergies No Known Allergies Measurements:Height: 155 cmWeight: 67.7 kgBlood Pressure: 103 mmHg / 70 mmHgBMI: 28.05 kg/m2 Procedures back surgery (05/26/2015) Colon cancer (05/26/2015) Ear prosthesis (05/26/2012) Knee arthroplasty (05/26/2007) rotator cuff (05/26/2002) Immunizations No Immunizations Documented This Visit Final Med List:acetaminophen-oxycodone (Percocet 325 mg-5 mg Tab) 1 Tabs By Mouth every 4 hours as needed as needed for pain. Refills: 0.aspirin (aspirin 325 mg Oral EC Tab) 1 Tabs By Mouth 2 times a day for 30 Days. Refills: 0.furosemide (Lasix 20 mg Tab) 1 Tabs By Mouth every day.leflunomide (leflunomide 20 mg Tab) 1 Tabs By Mouth every day.levothyroxine (Synthroid 88 mcg Tab) 1 Tabs By Mouth every day. Care Team Members:Attending Physician: Bautista Harrell DO Physician: Ivory García MD; Lalo Harrell DO Physician: Follow up:With: Address: When: Ryan Harrell [place] [phone] Business (1) Within 5 to 7 days With: Address: When: STUART SERA [address] [place] [address] Business (1) Within 3 to 5 days Patient Education Information: Joaquín - Post Op Hip Replacement Arthroplasty (Revised July 2013) (Custom) (CUSTOM) [facility] Inpatient Patient Summaryon 01-20-2017 Inpatient Patient Summary [place] [id number] Patient Discharge Instructions PERSON INFORMATION Name: JESSICA GONZALEZ Date of : 1945 12:00 AM Current Date: 01/20/17 13:46:27 PHYSICIANS Admitting Phys[facility]: BERNARDINO ZAMORA DO Comment: Discharge Diagnosis: Closed displaced fracture of left femoral neck with malunionCondition at Discharge: Improved JESSICA GONZALEZ has been given the following list of follow-up instructions, prescriptions, and patient education materials: PATIENT FOLLOW-UP INFORMATIONDiet: Discharge Activity: Discharge Restrictions: Wound Care Instructions: Remove Your Dressing In DaysCall Your Doctor For: IF UNABLE TO CONTACT YOUR PHYSICIAN AND YOU FEEL IT IS AN EMERGENCY, GO TO THE NEAREST EMERGENCY ROOM OR CALL 911 Home Treatment: Devices/Equipment: Walker - front wheeledSpecial Services: Additional Instructions: Primary Care Physician to provide the following pending test results: NoneFollow up:With: Address: When: Ryan Harrell [place] [phone] Business (1) Within 5 to 7 days With: Address: When: STUART ZAMORA [address] [place] [phone] Business (1) Within 3 to 5 days In the event that this physician does not participate in your insurance network, please consult with your insurance company to find a nearby participating provider. Comment: CARLOS Bishop CAROLE J, have received the attached patient education materials/instructions and have verbalized understanding:Patient Signature Date Clinican/Nurse Signature Date HERE ARE THE MEDICATION CHANGES THAT OCCURRED DURING YOUR HOSPITAL STAY New MedicationsPrinted Prescriptionsacetaminophen-ox ycodone (Percocet 325 mg-5 mg Tab) 1 Tabs By Mouth every 4 hours as needed as needed for pain. Refills: 0.Last Dose: Next Dose: Othe r Medicationsaspirin (aspirin 325 mg Oral EC Tab) 1 Tabs By Mouth 2 times a day for 30 Days. Refills: 0.Last Dose: Next Dose: Medi cations to Continue with No ChangesOther Medicationsfurosemide (Lasix 20 mg Tab) 1 Tabs By Mouth every day.Last Dose: Next Dose: lefl unomide (leflunomide 20 mg Tab) 1 Tabs By Mouth every day.Last Dose: Next Dose: levo thyroxine (Synthroid 88 mcg Tab) 1 Tabs By Mouth every day.Last Dose: Next Dose: Comm ent: MEDICATION LIST PROVIDED FOR YOU IS A LIST OF YOUR CURRENT MEDICATIONS. PLEASE CARRY THIS WITH YOU AT ALL TIMES. acetaminophen-oxycodone (Percocet 325 mg-5 mg Tab) 1 Tabs By Mouth every 4 hours as needed as needed for pain. Refills: 0.aspirin (aspirin 325 mg Oral EC Tab) 1 Tabs By Mouth 2 times a day for 30 Days. Refills: 0.furosemide (Lasix 20 mg Tab) 1 Tabs By Mouth every day.leflunomide (leflunomide 20 mg Tab) 1 Tabs By Mouth every day.levothyroxine (Synthroid 88 mcg Tab) 1 Tabs By Mouth every day.Pharmacy Information: Comment: PATIENT EDUCATION INFORMATIONInstructions:Isaias n B Shine, D.O.Access [address] [place], [place] [id number] VE BIPOLAR HIP REPLACEMENT ARTHROPLASTY DISCHARGE INSTRUCTIONSINCISION CARE:Continue the daily dressing changes to the hip as instructed in the hospital 16 days postoperatively. If the incision is dry apply a dry dressing only. If any drainage is noted apply Betadine liquid over the drainage are only. Dressing changes may be done more often as needed. Steri-strips (paper tape strips) applied to the incision should remain in place for 16 days and then they may come off in the shower. Please notify the office if any increase in redness, tenderness, drainage, fever, or wound separation is noted beyond this point.Compression stockings may be helpful if any significant or uncomfortable swelling in the legs is noted postoperatively. Use and removal instructions should be given by physical therapy. If the swelling is below the knee, knee high compression stockings may suffice. If this does cause swelling into the thigh region, waist high compression stockings may be beneficial as well. These can be obtained from most pharmacies, or can be obtained from the hospital or through Home Health. The mild grade compression stockings are best used initially, and dislocation precautions must be maintained. You may need assistance when applying or removing the compression stocking.DISLOCATION PRECAUTIONS:Continue to use the abduction pillow between the knees at all times, both while in bed and up in chair. This abduction pillow should be removed only while walking and performing physical therapy exercises; otherwise, to be used while sitting and while in bed. This will maintained for six weeks postoperatively. At that time you may begin using a regular bed pillow between your knees at night. You should continue to avoid crossing the knees or crossing the legs for six months postoperatively. Sitting in a chair should always be such that the knees are kept below the level of the hips to avoid increased flexion of the hip, possibly causing dislocation.MEDICATIONS:You may resume your home medications at the time of discharge.Pain medication has been prescribed as well. You may continue to use the pain medication every four hours as needed. Any narcotic pain medication can cause side effects including stomach upset, constipation, or light-headedness. You should not drive or operate machinery, or use alcohol while using the narcotic pain medication. You should not use other pain medications with this prescription pain medication unless further directed by your physician.Deep Venous Thrombosis Prophylaxis ? to prevent Blood ClotsA blood thinner that helps prevents the development of blood clots in the legs, was used during your hospitalization. Blood thinner should be continued after discharge Aspirin Therapy ? patients with no history of blood clots For prevention of deep venous thrombosis and pulmonary embolization, continue to take one regular strength 325mg stomach coated Aspirin twice daily with meals for 30 days postop. Please notify the office if you have any sensitivity to Aspirin products or if any problems develop such as stomach upset, increased bleeding, bruising or ringing in the ears.PHYSICAL THERAPY ? DISLOCATION PRECAUTIONS:Continue the range of motion and strengthening exercises initiated in Physical Therapy in the hospital. Again, do not cross legs, internally rotate the legs, or flex the hip above 90 degrees for six months postoperatively.Continue weight bearing, as ordered, to the operated hip for four to six weeks as directed in Physical Therapy. This will be with the use of a walker or crutches. After four or six weeks you may then progress to the use of one crutch, or a cane. A quad-cane is preferred as this is more stable. Physical therapy as begun in the hospital will continue at home, possible with the financial planning assistant of Home Health Physical Therapy or in the hospital as an outpatient. When you have become independent with the physical therapy program, this will then be discontinued as a supervised program and you will be instructed to continue the physical therapy exercises at home.DRIVING:Driving is legal, but you must be able to maintain control of your car at all times. Driving too soon, you are considered an impaired mule driver, and this could be a problem. It is therefore advised not to drive until after your first office visit following surgeryFOLLOW-UP OFFICE VISIT: Cash Harrell D.O.Revised: 2010 Medication Leaflets: Thank you for choosing [facility] Normal [facility] Interdisciplinary Note - Trevor e Manageron 01-20-2017 Interdisciplinary Note - Shell Machine Operator Rounding with Dr. Chapman, Helen [facility], Pat[facility], Ana RN. Whiteboard updated. No family present. Pt. alert and sitting up in chair. Pt. aware of plan for [facility] when we get acceptance. Discussed her anemia in past and other medical history. Normal [facility] Lyteson 01-20-2017 Anion gap 13 mmol/L Normal 6-16 [facility] Comment on above: Performed By: #### 2 [id number], [id number], [id number], [id number], [id number], [id number] ####[facility] [address] [place] [address] Chloride 105 mmol/L Normal 101-111 [facility] Comment on above: Performed By: #### 2 [id number], [id number], [id number], [id number], [id number], [id number] ####[facility] [address] [place] [address] CO2 25 mmol/L Normal 21-31 [facility] Comment on above: Performed By: #### 2 600660, [id number], 8413566, 15434296, 6453499, [id number] ####[facility] [address] [place] [address] Potassium molar conc 3.5 mmol/L Normal 3.5-5.3 [facility] [place] [facility] Comment on above: Performed By: #### 2 595382, [id number], 9192133, 30002303, [id number], [id number] ####[facility] [address] [place] [address] Sodium 139 mmol/L Normal 135-145 [facility] Comment on above: Performed By: #### 2 236234, [id number], 2864095, [id number], 1335812, [id number] ####[facility] [address] [place] [address] Main OR Intraoperative Recor don 01-20-2017 Main OR Intraoperative Record IntraOp Document Type FT Summary Primary Physician: Ryan Harrell DO Finalized Date/Time: 01/20/17 13:52:54 Pt. Name: CARLOSJESSICA/Sex: 1945 Female Med Rec #: [id number] Physician: Ryan Harrell DO Financial #: [id number] Pt. Type: I Room/Bed: [place] [address] Admit/Disch: 01/17/17 17:21:00 - Institution: Case Times FT Entry 1 Patient Times In Room 01/18/17 09:19:00 Out Room 01/18/17 11:07:00 Procedure Times Start 01/18/17 09:57:00 Stop 01/18/17 10:57:00 Anesthesia Times Start 01/18/17 09:19:00 Stop 01/18/17 11:07:00 Last Modified By: Julieta Conrad CST 01/18/17 11:11:23 General Comments: 01/20/2017 Chart opened to review and send charges dEilma handy Case Attendance FT Entry 1 Entry 2 Entry 3 Case Attendee Kevin Morales MD, DO, Ryan Pratt RN, CNOR, CRNFA, ONC, Imani Role Performed Anesthesiologist of Surgeon - Primary RESEARCH PSYCHOLOGIST Record Time In 01/18/17 09:19:00 01/18/17 09:27:00 01/18/17 09:19:00 Time Out 01/18/17 11:07:00 01/18/17 11:02:00 01/18/17 11:07:00 Procedure HIP BIPOLAR HIP BIPOLAR HIP BIPOLAR ARTHROPLASTY(Left) ARTHROPLASTY(Left) ARTHROPLASTY(Left) Comments Last Modified By: Jeff RN, Fitz Aguilar RN, Fitz Aguilar RN, Fitz Elena 01/18/17 11:11:24 01/18/17 11:11:24 01/18/17 11:11:24 Entry 4 Entry 5 Entry 6 Case Attendee Dg RN, Louise Aguilar RN, Fitz Conrad CST, Julieta Role Performed Warehouse Shipping Supervisor - Primary Warehouse Shipping Supervisor - Other Scrub - Primary Time In 01/18/17 09:19:00 01/18/17 09:19:00 01/18/17 09:19:00 Time Out 01/18/17 11:07:00 01/18/17 11:07:00 01/18/17 11:07:00 Procedure HIP BIPOLAR HIP BIPOLAR HIP BIPOLAR ARTHROPLASTY(Left) ARTHROPLASTY(Left) ARTHROPLASTY(Left) Comments ORIENTATION Last Modified By: Jeff RN, Fitz Aguilar RN, Fitz Jennings RN 01/18/17 11:12:21 01/18/17 11:11:24 01/18/17 11:11:24 Entry 7 Case Attendee Vanessa Garcia CST Role Performed Scrub - Other Time In 01/18/17 09:19:00 Time Out 01/18/17 11:07:00 Procedure HIP BIPOLAR ARTHROPLASTY(Left) Comments 2ND SCRUB Last Modified By: Fitz Aguilar RN 01/18/17 11:11:24 Perioperative Protocols FT Pre-Care Text: Implements protective measures prior to operative or invasive procedure, confirms identity before the operative or invasive procedure, verifies operative procedure, surgical site, and laterality Entry 1 Procedure(s) HIP BIPOLAR Patient Identity Birthday, Blood Band, ARTHROPLASTY(Left) Verified (select at ID Band Check, Patient least 2): Participation Consents / H and P Anesthesia Consent, Operative Site Present Verified HandP, Surgery/Procedure Marking Verified Consent, Transfusion Consent Surgical Site Yes Laterality Verified Yes Verified Procedure Verified Yes Correct Patient Yes Position Verified Availability Equipment, Implant, Prep Dry Yes Verified (If Medication, X-ray Applicable) PreOp Antibiotic Yes Time Out Andrew MEAD, Kevin, Given Participants Ryan Harrell DO, Miller RN, CNOR, CRNFA, ONCImani Ferris RN, Jeff Machado RN, Anamaria Contreras CST, Jose Rendon CST, Vanessa Gaitan Time Out Complete 01/18/17 09:55:00 Outcomes Met? Yes Last Modified By: Fitz Aguilar RN 01/18/17 10:12:52 Post-Care Text: The patient is free from signs and symptoms of injury caused by extraneous objects Allergy Information FT Pre-Care Text: Verifies allergies Entry 1 Allergies Reviewed? Yes Allergies Reviewed Self/Patient With Outcomes Met? Yes Last Modified By: Fitz Aguilar RN 01/18/17 10:03:07 Post-Care Text: The patient received appropriate medication(s) safely administered during the perioperative period Surgical Procedures FT Entry 1 Procedure Description Procedure HIP BIPOLAR ARTHROPLASTY Modifiers Left Surgeon Description LEFT BIPOLAR HIP ARTHROPLASTY Primary Procedure Yes Primary Surgeon Ryan Harrell DO 01/18/17 09:57:00 Stop 01/18/17 10:57:00 Anesthesia Type General Surgical Service Orthopedics Wound Class 1 - Clean Last Modified By: Fitz Aguilar RN 01/18/17 11:11:27 General Case Data FT Pre-Care Text: Classifies surgical wound, implements aseptic technique, initiates traffic control Entry 1 Case Information OR OR 7 FT Case Level Level 5 Wound Class 1 - Clean Specialty Orthopedics ASA Class 2 Preop Diagnosis LEFT FEMORAL NECK Postop Same As Preop No FRACTURE Postop Diagnosis SUBACUTE LEFT HIP Outcomes Met? Yes FRACTURE Last Modified By: Julieta Conrad CST 01/20/17 13:52:51 Post-Care Text: The patient is free from signs and symptoms of infection Skin Assessment (Pre Procedure) FT Pre-Care Text: Implements protective measures to prevent skin/ tissue injury due to thermal or mechanical sources Evaluates for signs and symptoms of physical injury to skin and tissue Entry 1 Skin Integrity [place], Dry, Other/See Skin Abnormality Yes Comments Abnormality Location SMALL ABRASIONS Outcomes Met? Yes THROUGHOUT BILATERAL LOWER EXTREMITIES Last Modified By: Fitz gAuilar RN 01/18/17 10:05:10 Post-Care Text: The patient is free from signs and symptoms of injury caused by extraneous objects Patient Positioning FT Pre-Care Text: Identifies physical alterations that require additional precautions for procedure-specific positioning, verifies presence of prosthetics or corrective devices, positions the patient, evaluates the patient for signs and symptoms of injury as a result of positioning Entry 1 Procedure HIP BIPOLAR Body Position Lateral, left side up ARTHROPLASTY(Left) Feet Uncrossed? Yes Left Arm Position Other/See Comments Right Arm Position Extended on Padded Arm Left Leg Position Held on Field Board Right Leg Position Extended Positioning Device Axillary Roll, Cortes Bag Small (vac pac), Demayo Hip Positioner, Pillow Large Between Knees, Pillow Support Under Arm, Pillow Under Head Large Press Points Checked Yes By Andrew MEAD, Joaquín Dozier DO, Steven, Ferris RN, Terence Machado RN, CNOR, TYSHAWNA, ONC, Terence Diallo RN, CNOR, BRYON, ONC, Jeff Diallo RN, Emily A Outcomes Met? Yes Last Modified By: Fitz Aguilar RN 01/18/17 10:08:12 Post-Care Text: The patient is free from signs and symptoms of injury related to positioning General Comments: 0932- PATIENT POSITIONED LATERALLY WITH LEFT SIDE UP, PILLOW UNDER HEAD PER ANESTHESIA, RIGHT ARM EXTENDED ON PADDED ARMBOARD, LEFT ARM EXTENDED OVER FOLDED PILLOW AND SECURED WITH FOLDED TOWEL AND TAPE, DEMAYO HIP POSITIONER PLACED PER SURGEON, RIGHT LEG EXTENDED WITH PILLOW LEGS ADN LEFT LEG HELD ON FIELD. SURGEON AND ANESTHESIA VERIFIED POSITIONING PRIOR TO PROCEDURE. Kan QUIROZ RN Patient Care Devices FT Pre-Care Text: Implements protective measures to prevent skin/ tissue injury due to thermal or mechanical sources Entry 1 Entry 2 Entry 3 Equipment Type CAUTERY UNIT[F] DEMAYO LATERAL WEST SYSTEM[F] POSITIONER [F] Equipment Number C3 Equipment Setting Outcomes Met? Yes Yes Yes Last Modified By: Fitz Aguilar RN, RN, Emily A Coy RN, Emily A 01/18/17 10:09:03 01/18/17 10:09:03 01/18/17 10:09:03 Entry 4 Entry 5 Entry 6 Equipment Type INTERPULSE[F] MISTRAL FORCED AIR MONITOR CHARGE SURGERY WARMING SYSTEM UNIT[F] [F] Equipment Number M3 Equipment Setting Outcomes Met? Yes Yes Yes Last Modified By: Fitz Aguilar RN, RN, Fitz Jennings RN 01/18/17 10:09:03 01/18/17 10:09:03 01/18/17 10:09:03 Entry 7 Equipment Type BORIS SUCTION UNIT [F] Equipment Number Equipment Setting Outcomes Met? Yes Last Modified By: Fitz Aguilar RN 01/18/17 10:09:03 Post-Care Text: The patient is free from signs and symptoms of injury caused by extraneous objects Transport To OR FT Pre-Care Text: Transports according to individual needs. Evaluates for signs and symptoms of skin and tissue injury as a result of transfer or transport Entry 1 Via Patient Bed By Fitz Aguilar RN Safety Precautions Side Rails Up Outcomes Met? Yes Last Modified By: Fitz Aguilar RN 01/18/17 10:09:26 Post-Care Text: The patient is free from signs and symptoms of injury related to transfer/transport Cautery FT Pre-Care Text: Implements protective measures to prevent injury due to electrical sources, and evaluates for signs and symptoms of electrical injury Entry 1 ESU Identification Equipment Number C3 ESU Settings Cut 75 Coag 75 ESU Grounding Pad Site Left Lower Abdomen Hair Removal Pad No Site Pre Pad Site Clear and Intact Post Pad Site Clear and Intact Condition Condition Grounding Pad Dg VALENCIA, Louise Kim By Outcomes Met? Yes Last Modified By: Fitz Aguilar RN 01/18/17 10:09:58 Post-Care Text: The patient if free from signs and symptoms of electrical injury Counts Verification FT Pre-Care Text: Performs required counts Entry 1 Entry 2 Entry 3 Procedure(s) HIP BIPOLAR HIP BIPOLAR HIP BIPOLAR ARTHROPLASTY(Left) ARTHROPLASTY(Left) ARTHROPLASTY(Left) Type Initial Closing Final Items Sponges, Sharps Sponges, Sharps Sponges, Sharps Status Correct Correct Correct Time 01/18/17 09:20:00 01/18/17 10:42:00 01/18/17 10:50:00 By Fitz Aguilar RN, Barman CST, Jennifer, Coy RN, Emily A, Barman Ruffing CST, Fitz Toribio RN, CST, Jennifer Outcomes Met? Yes Yes Yes Last Modified By: Fitz Aguilar RN, RN, Emily A Coy RN, Emily A 01/18/17 10:10:22 01/18/17 10:45:13 01/18/17 10:51:02 Post-Care Text: The patient is free from signs and symptoms of injury caused by extraneous objects Skin Prep FT Pre-Care Text: Performs skin preparations Entry 1 Procedure HIP BIPOLAR Prep Area LEFT HIP AND LEG TO ARTHROPLASTY(Left) ANKLE CIRCUMFRENTIALLY Prep Agents Chloraprep/Dry Prior to Draping Hair Removal Methods Not Indicated By Louise Conte RN Outcomes Met? Yes Last Modified By: Fitz Aguilar RN 01/18/17 10:10:45 Post-Care Text: The patient is free from signs and symptoms of infection Departure From OR FT Pre-Care Text: Transports according to individual needs. Evaluates for signs and symptoms of skin and tissue injury as a result of transfer or transport. Entry 1 Via Patient Bed Safety Precautions Side Rails Up PostOp Destination PACU Transported By Louise Conte RN Patient Status Stable Skin. Condition Other/See Comments Description UNCHANGED FROM PREVIOUSLY Airway Maintenance Oxygen in Use? Yes Airway Device Simple Mask Flow Rate 8 L/min Outcomes Met? Yes Last Modified By: Fitz Aguilar RN 01/18/17 10:11:27 Post-Care Text: The patient is free from signs and symptoms of injury related to transfer/transport General Comments: REPORT GIVEN TO SHAREPOINT APPLICATION ARCHITECTRN. Kan QUIROZ RN Dressing/Packing FT Pre-Care Text: Administers care to wound sites Entry 1 Type Dressing Site and Details GAMALIEL, AQUACEL, AND ABDUCTION PILLOWS TO LEFT HIP Outcomes Met? Yes Last Modified By: Fitz Aguilar RN 01/18/17 10:58:04 Post-Care Text: The patient is free from signs and symptoms of infection Medication Administration FT Pre-Care Text: Verifies allergies, administers prescribed medications and solutions, administers prescribed antibiotic therapy and immunizing agents as ordered, evaluates response to medications Administers prescribed medications and solutions Entry 1 Expiration Date Yes Outcomes Met? Yes Verified Last Modified By: Fitz Aguilar RN 01/18/17 10:12:11 Post-Care Text: The patient received appropriate medication(s) safely administered during the perioperative period For [place] please see scanned medication reconcilliation form for medications used at the field during the procedure. Implant Log FT Pre-Care Text: Records devices implanted during the operative or invasive procedure Entry 1 Entry 2 Entry 3 Implant/Explant Implant Implant Implant Implant Identification Description STEM ACCOLADE SIZE 5[F] FEMORAL HEAD CFIT V40 UNIVERSAL HEAD 28MM X LFIT 28MM STD 46MM [UH1-46-28][F] [6260-9-128][F] Serial Number Lot Number [id number] Child Watch Attendant FT-ARMANDO FT-ARMANDO FT-ARMANDO Catalog ?# [id number][F] 6260-9-128[F] UH1-46-28 [F] Size 5 37MM NK LNTH 130MM 28MM OD +0MM OFFST 46MM OD 28MM ID STM LNTH V40 TPR Expiration Date 10/25/20 08/06/21 03/20/20 Usage Data Implant Site LEFT HIP LEFT HIP LEFT HIP Quantity 1 1 1 Temperature Reconstitution Method Outcomes Met? Yes Yes Yes Last Modified By: Fitz Aguilar RN, RN, Emily A Coy RN, Emily A 01/18/17 10:42:51 01/18/17 10:42:51 01/18/17 10:42:51 Post-Care Text: The patient is free from signs and symptoms of injury caused by extraneous objects Cultures and Specimens FT Pre-Care Text: Manages specimen handling and disposition Manages culture specimen collection Entry 1 Cultures Ordered No Specimens Ordered Yes Specimen Disposition Designated OR Area Frozen Section Times Outcomes Met? Yes Last Modified By: Fitz Aguilar RN 01/18/17 10:45:46 Post-Care Text: The patient is free from signs and symptoms of injury caused by extraneous objects The patient is free from signs and symptoms of infection General Comments: SPECIMEN: BONE AND SOFT TISSUE LEFT HIP. Kan QUIROZ RN Temperature Control Entry 1 Temperature Control BLANKET MISTRAL AIR Quantity 1 Aid TORSO [[id number]][F] Fluid/[place] Unit Mistral warming system Setting HIGH/43 Body Site Upper anterior torso Last Modified By: Fitz Aguilar RN 01/18/17 10:12:35 Case Comments Finalized By: Julieta Conrad CST Document Signatures Signed By: Fitz Aguilar RN 01/18/17 11:38 Fitz Aguilar RN 01/18/17 11:12 Fitz Aguilar RN 01/18/17 11:12 Julieta Conrad CST 01/20/17 13:52 Normal [facility] eGFRon 01-20-2017 eGFR (black) mL/min/{1.73_m2} Normal >=59 [facility] Comment on above: Order Comment: Order added by Discern Expert. Result Comment: eGFR is race adjusted. AA=. Performed By: #### 2 405150, [id number], 1435876, 61021841, 8577686, [id number] ####[facility] [address] [place] [address] eGFR (non-black) mL/min/{1.73_m2} Normal >=59 [facility] [place] [facility] Comment on above: Order Comment: Order added by Discern Expert. Result Comment: Digital Campaign Specialist alida kidney disease could be indicated at eGFR's of less than 60 mL/min/1.73m2. Kidney failure is indicated at less than 15 mL/min/1.73m2. Performed By: #### 2 611205, [id number], 9350927, 36825580, 5297488, [id number] ####[facility] [address] [place] [address] Auto Diffon 01-19-2017 Basophils Auto #/vol (Bld) 0.0 E9/L Normal 0.0-0.2 [facility] Comment on above: Order Comment: Order added by Discern Expert. Performed By: #### 2 448691, [id number], 2755404, 76577368, 1354796, [id number] ####[facility] [address] [place] [address] Basophils Auto #/vol (Bld) 0.3 % Normal 0.0-2.0 [facility] Comment on above: Order Comment: Order added by Discern Expert. Performed By: #### 2 365464, [id number], 0094701, 44903590, 0165316, [id number] ####[facility] [address] [place] [address] Eosinophils 0.1 E9/L Normal 0.0-0.5 [facility] Comment on above: Order Comment: Order added by Discern Expert. Performed By: #### 2 592598, [id number], 4488573, 99647768, 7159332, [id number] ####[facility] [address] [place] [address] Eosinophils/100 leukocytes 1.4 % Normal 0.0-8.0 [facility] Comment on above: Order Comment: Order added by Discern Expert. Performed By: #### 2 440214, 35366363, 3161730, 74993184, 1850476, 30472414 ####[facility] [address] [place] [address] Lymphocytes 1.2 E9/L Normal 1.0-4.0 [facility] Comment on above: Order Comment: Order added by Discern Expert. Performed By: #### 2 367818, 29442485, 1095305, 36420253, 4313319, [id number] ####[facility] [address] [place] [address] Lymphocytes/100 leukocytes 13.4 % Low 14.0-50.0 [facility] Comment on above: Order Comment: Order added by Mallory Expert. Performed By: #### 2 058350, 14621747, 1304131, 63230190, 5633742, [id number] ####[facility] [address] [place] [address] Monocytes 0.8 E9/L Normal 0.2-1.0 [facility] Comment on above: Order Comment: Order added by Mallory Expert. Performed By: #### 2 451605, 35602876, 7947416, 89553302, 2461885, 74430194 ####[address] [place] [address] Monocytes/100 leukocytes 9.0 % Normal 4.0-14.0 [facility] Comment on above: Order Comment: Order added by Mallory Expert. Performed By: #### 2 280821, [id number], 5745806, 05663972, 0655161, 35632702 ####[facility] [address] [place] [address] Neutrophils 6.9 E9/L Normal 2.0-7.5 [facility] Comment on above: Order Comment: Order added by Mallory Expert. Performed By: #### 2 008500, [id number], 4729666, 50866500, 2920586, 63361129 ####[facility] [address] [place] [address] Neutrophils/100 leukocytes 75.9 % High 36.0-75.0 [facility] Comment on above: Order Comment: Order added by Discern Expert. Performed By: #### 2 345976, 13040421, 6141592, 14711756, 0416225, 04442291 ####[facility] [address] [place] [address] BUNon 01-19-2017 Urea nitrogen 14 mg/dL Normal 5-21 [facility] Comment on above: Performed By: #### 2 120554, [id number], 3553181, 45530967, 6053632, [id number] ####[address] [place] [address] CBC w/ Auto Diffon 7 Erythrocyte distribution width Auto Ratio (RBC) 21.4 % High 10.9-14.2 [facility] Comment on above: Performed By: #### 2 720483, [id number], 9072882, 23773149, 0298274, [id number] ####[address] [place] [address] Erythrocytes (RBC) 2.8 E12/L Low 4.3-5.9 [facility] Comment on above: Performed By: #### 2 511604, [id number], 1258578, 06092466, 1600241, [id number] ####[facility] [address] [place] [address] Hematocrit (HCT) 24.6 % Low 34.0-46.0 [facility] Comment on above: Performed By: #### 2 872518, 76014690, 9188405, 20926630, 1136133, 28219280 ####[facility] [address] [place] [address] Hemoglobin mass conc (Bld) 7.8 g/dL Low 12.0-16.0 [facility] Comment on above: Performed By: #### 2 465583, 99135951, 7352365, 34619239, 7422132, 59247880 ####[place] [id number] MCH 28.1 pg Normal 27.0-34.0 [facility] Comment on above: Performed By: #### 2 822927, 41636036, 9458596, 52011279, 4514363, 32002616 ####[place] [address]57 MCHC mass conc (RBC) 31.6 g/dL Normal 31.4-39.3 [facility] Comment on above: Performed By: #### 2 083688, 87709334, 5015835, 35080516, 8789748, 01155408 ####[place] [address]1357 MCV 88.8 fL Normal 80.0-100.0 [facility] Comment on above: Performed By: #### 2 573780, 15154804, 9531986, 48144969, 7451751, [id number] ####[place] [address]1357 Platelet mean volume (PMV) 8.1 fL Normal 6.4-10.8 [facility] Comment on above: Performed By: #### 2 241450, 50420181, 2695419, 69953582, 2507107, 68401539 ####[place] [address]1357 Platelets 298.0 E9/L Normal 150.0-500. 0 [facility] Comment on above: Performed By: #### 2 099920, 31984198, 3021824, 03605578, 4225923, 64085882 ####[place] [address] WBC (Leukocytes) 9.1 E9/L Normal 4.0-11.0 [facility] Comment on above: Performed By: #### 2 014583, 63499789, 8801533, 41407254, 0244722, 86882206 ####[facility] [address] [place] [address] Consultation Noteon 01-20-20 17 Consultation Note HOSPITAL REGULATIONS : ALL Positive Important Negative Findings Shall Be Recorded.Date of 01/17/2017Consultation:Attend ignacio García M.D.Physician:Consulting Ryan Harrell D.O.Physician:CHIEF COMPLAINT: Left hip pain.HISTORY OF PRESENT ILLNESS: [facility] 71 [facility] pain which has been presentfor the past five days. She denies a fall or injury to the left hip. Shewas evaluated by Dr. Gibran Zamora and recommendation was for x-ray of the lefthip. She was seen at [facility] for this and a displaced subcapital fracturewas noted. She has no other complaint. She states that she has beenwalking with some pain for at least the past several weeks.PAST HISTORY: Significant for rheumatoid arthritis currently takingPrednisone. She also does have a history of a right knee replacement,rotator cuff surgery, colon cancer and previous back surgery.CURRENT MEDICATIONS:1. [place].2. Lasix.3. Synthroid.4. Leflunomide.5. Zofran.6. Nicotine Transdermal Patch.PSYCHOSOCIAL HISTORY: She is an independent community ambulator. Livesalone at home. Her sister lives next door. She has not needed the use ofassistive devices for walking. She is a cigarette smoker, one pack per day.PHYSICAL EXAMINATION:Orthopaedic: Orthopaedic examination is performed in the supine position.She has pain about the left hip region. The left lower extremity isshortened and externally rotated and she does have localized discomfort tothe left hip region with very gentle motion. The left knee and ankleexamination are otherwise unremarkable. She does have a little sorenessand stiffness in the right knee. Her anterior knee incision issatisfactorily healed. Her bilateral upper extremity examination isotherwise unremarkable.X-RAY: [facility] radiograph of the left hip is here for review.It demonstrates a displaced subcapital fracture of the left proximal femur.IMPRESSION: Displaced left hip subcapital proximal femur fracture.PLAN: We discussed at length the nature of this injury andoptions for further treatment. Recommendation is for bipolarhemiarthroplasty of the left hip. She has had no problems with the left hippreviously. She has been evaluated by hospitalist service and we diddiscuss the risks, benefits, expectations and potential complications ofsurgery with her steroid dependent rheumatoid arthritis they do understandthe increased potential for perioperative infection. We will continue tomonitor for this closely. She has no known drug allergies. We did discussthe rehabilitation with initial partial weight bearing for the first 2-3weeks postoperatively then with progression to full weight bearing. Theinitial use of the walker then cane are discussed. Physical therapy andoccupational therapy are likewise discussed as well as the perioperativecourse of hip arthroplasty with the restrictions of hip flexion, internalrotation, adduction and leg crossing. The potential for dislocation, earlyand late, are discussed. All questions are answered to understanding andsatisfaction. She does consent to surgery which is scheduled for tomorrowand she is approved for surgery by Medicine service.Ryan Harrell D.O.lkrDictated: 01/17/2017 #[id number]: 01/18/2017 #[id number]: Angie Chandra D.O.Steven B. Shine, D.O. Normal [facility] Comment on above: Result Comment: Elec tronically Signed By: Ryan Harrell DO\.br\Date and Time Signed: 01/19/17 14:01 EDT Creatinineon 01-19-2017 Creatinine 0.9 mg/dL Normal 0.5-1.3 [facility] Comment on above: Performed By: #### 2 085859, 99463183, 5066356, 84712218, 5551779, 28239894 ####[facility] [address] [place] [address] Interdisciplinary Note - Nessa n 01-19-2017 Interdisciplinary Note - OT OT orders received and initial evaluation completed this AM. Pt seated upright in chair. Noted with decreased active ROM RUE for shoulder flexion. Decreased mobility and safety for self care and ADL's overall. 6-clicks score 17; recommend d/c SNF Normal [facility] Lyteson 01-19-2017 Anion gap 8 mmol/L Normal 6-16 [facility] Comment on above: Performed By: #### 2 115446, 93986871, 9238240, 49612525, 9328447, 46700050 ####[facility] [address] [place] [address] Chloride 108 mmol/L Normal 101-111 [facility] Comment on above: Performed By: #### 2 663499, 23966021, 1787892, 08540018, 6077185, 40135556 ####[facility] [address] [place] [address] CO2 25 mmol/L Normal 21-31 [facility] Comment on above: Performed By: #### 2 362421, 96510450, 0266277, 65663354, 5839693, 52565051 ####[place] [address] [place] [address] Potassium molar conc 3.7 mmol/L Normal 3.5-5.3 [facility] Comment on above: Performed By: #### 2 393763, 05561118, 3389249, 64691180, 5353708, 02379154 ####[facility] [address] [place] [address] Sodium 137 mmol/L Normal 135-145 [facility] Comment on above: Performed By: #### 2 994655, 14371476, 2365749, 19584782, 9975162, 74376510 ####[place] [address] [place] [address] Morphon 01-19-2017 Anisocytosis presence Present Normal [facility] Comment on above: Order Comment: Order added by Discern Expert. Performed By: #### 2 017702, 87745056, 8765444, 44582826, 1533251, 15839297 ####[facility] [address] [place] [address] Blood morphology See Morphology Normal [facility] Comment on above: Order Comment: Order added by Discern Expert. Result Comment: Slid e reviewed by KD. Performed By: #### 2 774562, 62769589, 2890144, 08513281, 5943417, 26907109 ####[facility] [address] [place] [address] HYPOCHROMIA:PRTHR:PT :BLD:ORD:AUTOMATED COUNT Present Normal [facility] Comment on above: Order Comment: Order added by Discern Expert. Performed By: #### 2 100665, 37866389, 1570813, 39652900, 6197535, 08560379 ####[facility] [address] [place] [address] PLATELETS.LARGE:PRTH R:PT:BLD:ORD:MICROSC OPY.LIGHT Present Normal [facility] Comment on above: Order Comment: Order added by Discern Expert. Performed By: #### 2 206839, 06783262, 6369667, 45576850, 4525276, 16328824 ####[facility] [address] [place] [address] Operative Reporton 7 Operative Report Date of Surgery: 01/18/2017SURGEON: Ryan Harrell D.O.REFERRING PHYSICIAN: Stuart Zamora D.O.PREOPERATIVE DIAGNOSIS: Subcapital fracture left proximal femurPOSTOPERATIVE DIAGNOSIS: Subacute subcapital fracture left proximal femurOPERATION: Bipolar hemiarthroplasty, left hipANESTHESIA: GeneralANESTHESIOLOGIST: Kevin Morales M.D.INTRAOPERATIVE BLOOD LOSS: MinimalCONDITION ON TRANSPORT TO RECOVERY: Stable with symmetrical distal pulsesSPONGE AND NEEDLE COUNT: CorrectIMPLANT: Tustin Accolade size 5 stem, +0 neck with 46 mm bipolar headANTIBIOTICS: Ancef 2 grams I.V.INDICATIONS FOR SURGERY: [facility] 71 [facility] and increasing [facility] pain. On furtherdiscussion with the patient and her family they state that she has notbeen walking right for almost a year . No recent fall is noted. She hasno other complaints. She has had a previous right total knee replacement.Has had some continued stiffness following her right knee replacement andbelieves that this is causing her to place more weight and pressure on herleft hip. [facility] Emergency Room x-rays demonstrate a subcapitalfracture. Please refer to the admitting history and physical andorthopaedic consultation in the chart for further details.PROCEDURE: Site and side verification are performed in the PreoperativeHolding Area. The procedure as scheduled is reviewed. She is taken to theOperating Room, placed supine on the operating table. Anesthetic isadministered. The appropriate time out procedure is performed. The markedleft hip is examined. This is shortened and externally rotated. She iscarefully placed in the lateral decubitus position with the operative lefthip up which is then sterilely prepped and draped in the usual routinefashion. This is approached with a posterolateral incision and carried downthrough the subcutaneous tissue. There is a moderate amount of chronicappearing swelling and thickening and deep to the iliotibial band there hero chronic bursitis noted. There is marked thickening of the posteriorcapsule. The piriformis tendon is ruptured with chronic attenuation of thesuperior posterior capsule. The scar is divided after identification of thesciatic nerve which is protected throughout the procedure. The capsule isquite thin posterior and superiorly due to the chronic displacement andpressure of the femoral neck fracture. Hohmann deep retractors are placedand the femoral neck fracture is identified. This is smooth, not acute.The femoral neck osteotomy is performed and the femur is then retractedanteriorly to facilitate removal of the femoral head. The fracture site atthe subcapital region is ground quite smooth and not visible. There issignificant excoriation within the center of the femoral head where theneck fracture has been articulating. The femoral head is removed withoutdifficulty. Inspection of the acetabulum shows no significant erosivechanges. Therefore bipolar arthroplasty is indicated. The hip isinternally rotated and flexed and femoral canal preparation is performed toa size 5 stem. The trial reduction with a size 5 stem, +0 neck and 46 mmhead demonstrates excellent stability with 90 degrees of flexion, 75degrees of internal rotation. This is stable on extension/external rotationas well. Trial implants are removed. Copious pulse lavage irrigation isperformed and the size 5 femoral stem is impacted. The +0 neck and 46 mmbipolar head are assembled and a final reduction is performed. Similarstability is noted. Final copious irrigation is followed by capsular repairwith #2 Ethibond suture. This is repaired to the posterior aspect of thefemur with Ethibond needle passage through the osteoporotic bone. Thefinal copious irrigation is followed by repair of the iliotibial band with#2 V-Loc suture. A subcuticular repair is performed with #2-0 V-Loc and theskin is repaired with gamaliel. An Aquacel dressing is applied. Prior toclosure deep injection of Exparel is performed within the capsule, thefascia niya and subcutaneous layers. The patient is transported to thesupine position after dressing application and symmetric leg lengths arenoted. She is transported to Recovery in satisfactory condition havingtolerated the anesthetic and the procedure well.GROSS PATHOLOGY: This patient with a subacute left hip femoral neckfracture with moderate scarring about the posterior capsule of the left hipis satisfactorily treated with a bipolar hemiarthroplasty tolerating theanesthetic and the procedure well.Ryan Harrell D.O.lkrDictated: 01/18/2017 #[id number]: 01/18/2017 #[id number]: Karen Plunkett D.O. [facility] Comment on above: Result Comment: Elec tronically Signed By: Ryan Harrell DO\.br\Date and Time Signed: 01/19/17 14:01 EDT Progress Note-Physicianon Progress Note-Physician Patient: JESSICA GONZALEZ Age: 71 years Sex: Female : 1945 Associated Diagnoses: None Author: Ivory García MD Subjective Pt with some post op pain. No CP or SOB. Taking PO with no nausea or vomiting. Health Status Allergies: Allergic Reactions (Selected)No Known Allergies Current medications: Medications (24) ActiveScheduled: (6)ceFAZolin 2 gram 50 mL, IV Piggyback, h4kvgftfuokdpbjy 20 mg Cap-DR [F] 20 mg 1 cap(s), Oral, Dailyfondaparinux 2.5 mg/0.5 mL SubQ Tatyana [F] 2.5 mg 0.5 mL, SubCutaneous, qAMleflunomide 20 mg Tab [F] 20 mg 1 tab(s), Oral, Dailylevothyroxine 88 mcg (0.088 mg) Tab [F] 88 microgram 1 tab(s), Oral, Dailynicotine 21 mg/24 hr Transderm ER Film [F] 21 mg 1 patch(es), TransDermal, DailyContinuous: (0)PRN: (18)acetaminophen 325 mg Tab UD [F] 650 mg 2 tab(s), Oral, s4mwsytsmpaaeqtre 325 mg Tab UD [F] 650 mg 2 tab(s), Oral, m4npdrshqrjhmyknb-riqiawhqcys 325 mg-5 mg Tab [F] 1 tab(s), Oral, f5dwaehakkjizpgeq-pgmscvaygoo 325 mg-5 mg Tab [F] 1 tab(s), Oral, p6wqgwitkhefrtgrr-pajfivzucxv 325 mg-5 mg Tab [F] 2 tab(s), Oral, z1znjetcjnbylvdph-mldahadhg 325 mg-5 mg Tab [F] 1 tab(s), Oral, d3irafshqnpsccekq-syayflgiz 325 mg-5 mg Tab [F] 2 tab(s), Oral, q4hrAl hydroxide/Mg hydroxide/simethicone 200 mg-200 mg-20 mg/5 mL Oral Susp 30 mL [F] 30 mL, Oral, z4ckrwxeumpq sodium 100 mg Cap [F] 100 mg 1 cap(s), Oral, BIDHYDROmorphone 2 mg/mL Inj [F] 1 mg 0.5 mL, IV Push, i5skxpjegejvh hydroxide 8% Oral Susp 30 mL [F] 30 mL, Oral, q9mlhmxueuot 2 mg/mL preservative-free SOLN [F] 2 mg 1 mL, IV Push, m6wwqorpulqevhv 2 mg/mL Inj [F] 4 mg 2 mL, IV Push, u6aduosyymxonib 2 mg/mL Inj [F] 4 mg 2 mL, IV Push, u8cayrsDUTPIN 5 mg Tab UD [F] 5 mg 1 tab(s), Oral, k2pyhavJSYNGV 5 mg Tab UD [F] 10 mg 2 tab(s), Oral, a8eruwwUUVVG 50 mg Tab [F] 50 mg 1 tab(s), Oral, i4xjzowGYGZB 50 mg Tab [F] 100 mg 2 tab(s), Oral, q6hr Problem list: All ProblemsSmoker / IMO [id number] / ConfirmedAdded secondary to documentation in Social History.At risk for falls / SNOMED CT 289911328 / PossibleProblem added when Risk for Falls Careplan was initiated.Impaired skin integrity / SNOMED CT 47105327 / ConfirmedProblem added on documentation of skin impairments. Histories Past Medical History: No active or resolved past medical history items have been selected or recorded. Family History: Procedure history: back surgery on 05/26/2015 at 69 Years.Comments:01/17/2017 18:16 - Nelson VALENCIA, Ssuniy1207Tghfk cancer (SNOMED CT [id number]) on 05/26/2015 at 69 Years.Ear prosthesis (SNOMED CT 109249624) on 05/26/2012 at 66 Years.Knee arthroplasty (SNOMED CT 338502472) on 05/26/2007 at 61 Years.rotator cuff on 05/26/2002 at 56 Years. Social History Social & Psychosocial HabitsNo Data Available. Objective Vitals Signs (last 24 hrs) Last Charted Minimum MaximumTemp 36.6 (JAN 19 07:48) 35.7 (JAN 18 19:19) 36.6 (JAN 19 07:48)Heart Rate 79 (JAN 19 07:56) 58 (JAN 18 09:50) 89 (JAN 18 11:07)Resp Rate 16 (JAN 19 07:48) 1 (JAN 18 08:55) 43 (JAN 18 11:07)SBP 112 (JAN 19 07:48) 86 (JAN 18 09:54) 144 (JAN 18 09:39)DBP 69 (JAN 19 07:48) 46 (JAN 18 09:45) 72 (JAN 18 09:24)MAP 84 (JAN 19 07:48) 71 (JAN 18 19:19) 85 (JAN 19 05:05)SpO2 95 (JAN 19 08:40) 88 (JAN 18 12:14) 100 (JAN 18 09:30) General: Alert and oriented, No acute distress. Respiratory: Lungs are clear to auscultation, Respirations are non-labored, Breath sounds are equal. Cardiovascular: Normal rate, Regular rhythm, No murmur, No gallop. Gastrointestinal: Soft, Non-tender, Non-distended, Normal bowel sounds. Integumentary: Warm, Dry, [place]. Neurologic: Alert, No focal deficits, Cranial Nerves II-XII are grossly intact. Psychiatric: Cooperative, Appropriate mood & affect. Review / Management Results review: All Results 01/19/2017 05:06 EDT WBC 9.1 E9/L RBC 2.8 E12/L LOW Hgb 7.8 gm/dL LOW Hct 24.6 % LOW MCV 88.8 fL MCH 28.1 pg MCHC 31.6 gm/dL RDW 21.4 % HI Platelet 298.0 E9/L MPV 8.1 fL Neutro Auto 75.9 % HI Lymph Auto 13.4 % LOW [place] Auto 9.0 % Eos Auto 1.4 % Basophil Auto 0.3 % Neutro Absolute 6.9 E9/L Lymph Absolute 1.2 E9/L [place] Absolute 0.8 E9/L Eos Absolute 0.1 E9/L Basophil Absolute 0.0 E9/L RBC Morph See Morphology Anisocytosis Present Hypochromasia Present Large Plt Present BUN 14 mg/dL Creatinine 0.9 mg/dL eGFR >60 mL/min/1.73 m2 eGFR AA >60 mL/min/1.73 m2 Sodium Lvl 137 mmol/L Potassium Lvl 3.7 mmol/L Chloride 108 mmol/L CO2 25 mmol/L AGAP 8 mEq/L . Impression and Plan 1. Acute displaced left femoral neck fracture, POD #1 s/p bipolar hemiarthroplasty of left hip- pain control- PT/OT- post op blood loss anemia - no indication for transfusion, will recheck in AM, transfuse for hgb 7.5 or less 2. Hypothyroid- synthroid3. History of rheumatoid arthritis- leflunamide4. Tobacco abuse disorder- counseled on cessation, nicotine patch5. DVT Prophylaxis- SCDs, arixtra Normal [facility] Comment on above: Result Comment: Elec tronically Signed By: Raquel MEAD, Ivory\.br\Date and Time Signed: 01/19/17 08:52 EDT Progress Note-Physician Patient: JESSICA GONZALEZ Age: 71 years Sex: Female : 1945 Associated Diagnoses: None Author: Kevin Morales MD Preoperative Information Anesthesia history: Patient History: No personal or Family history of problems with anesthesia. Re-eval prior to induction: Inital eval reviewed: No significant interval change. Review of Systems Constitutional: Negative. Cardiovascular: Cardiovascular risk stratafacation reviewed, 1 FOS without difficulty, No chest pain. Respiratory: No SOB. Hematology/Lymphatics: Negative. Gastrointestinal: Negative. Musculoskeletal: Negative. Neurologic: Negative. Health Status Allergies: Allergic Reactions (Selected)No Known Allergies Current medications: (Selected) Inpatient MedicationsOrderedAl hydroxide/Mg hydroxide/simethicone 200 mg-200 mg-20 mg/5 mL oral suspension: 30 mL, Susp-Oral, Oral, q6hr PRN Indigestion, Routine, Start date 01/17/17 18:19:00 EDTCefazolin 2 gram IVPB: 2 gram = 50 mL, Soln-IV, IV Piggyback, Once, Stop date 01/18/17 8:00:00 EDT, Routine, Start date 01/18/17 8:00:00 EDT, 50 mL/hr, Infuse over 1 hour(s), vocational rehabilitation supervisor to ORMilk of Magnesia 8% Susp-Oral: 30 mL, Susp-Oral, Oral, q6hr PRN Constipation, Routine, Start date 01/17/17 18:19:00 EDTNS 1000 mL Soln-IV 1,000 mL: 1,000 mL, IV, 75 mL/hr, Routine, Start date 01/18/17 0:01:00 EDT, 13.3 hour(s), Total volume (mL): 1,000Norco 5/325 Tab: 1 tab(s), Tab, Oral, q4hr PRN Pain for 5 day(s), Stop date 01/22/17 18:19:00 EDT, Routine, Start date 01/17/17 18:20:00 EDTSynthroid 88 mcg Tab: 88 microgram = 1 tab(s), Tab, Oral, Daily, Routine, Start date 01/18/17 6:30:00 EDTZofran 4 mg/2 mL Injection: 4 mg = 2 mL, Injection, IV Push, q6hr PRN Nausea, Routine, Start date 01/17/17 18:19:00 EDTacetaminophen 325 mg Tab: 650 mg = 2 tab(s), Tab, Oral, q6hr PRN Pain, Routine, Start date 01/17/17 18:19:00 EDTleflunomide 20 mg Tab: 20 mg = 1 tab(s), Tab, Oral, Daily, Routine, Start date 01/18/17 9:00:00 EDTmorphine 2 mg/mL Inj: 2 mg = 1 mL, Injection, IV Push, q4hr PRN Pain for 5 day(s), Stop date 01/22/17 18:18:00 EDT, Routine, Start date 01/17/17 18:19:00 EDTnicotine 21 mg/24 hr Transderm ER Film: 21 mg, 1 patch(es), Patch-ER, TransDermal, Daily, Routine, Start date 01/17/17 18:20:00 EDTDocumented MedicationsDocumentedLasix 20 mg Tab: 20 mg = 1 tab(s), Oral, Daily, # 30 tab(s), Refills(s) 0Synthroid 88 mcg Tab: 88 microgram = 1 tab(s), Oral, Daily, # 30 tab(s), Refills(s) 0leflunomide 20 mg Tab: 20 mg = 1 tab(s), Oral, Daily, # 30 tab(s), Refills(s) 0 Problem list: All ProblemsImpaired skin integrity / SNOMED CT 51584725 / ConfirmedProblem added on documentation of skin impairments.At risk for falls / SNOMED CT 693373944 / PossibleProblem added when Risk for Falls Careplan was initiated.Smoker / IMO [id number] / ConfirmedAdded secondary to documentation in Social History. Histories Past Medical History: No active or resolved past medical history items have been selected or recorded. Procedure history: back surgery on 05/26/2015 at 69 Years.Comments:01/17/2017 18:16 - Nelson VALENCIA, Bxrcyn0541Jojrz cancer ([id number]) on 05/26/2015 at 69 Years.Ear prosthesis ([id number]) on 05/26/2012 at 66 Years.Knee arthroplasty ([id number]) on 05/26/2007 at 61 Years.rotator cuff on 05/26/2002 at 56 Years. Social History Social & Psychosocial HabitsNo Data Available. Physical Examination Pain assessment: Self-reports no pain. Airway: Mallampati classification: II (soft palate, fauces, uvula visible). Distance: Adequate. Mouth: Adequate opening. Neck: Full range of motion. Respiratory: Respirations are non-labored. Cardiovascular: Regular rhythm. Neurologic: Alert, Oriented. Review / Management Results review: All Results 01/18/2017 05:32 EDT WBC 6.9 E9/L RBC 3.1 E12/L LOW Hgb 8.8 gm/dL LOW Hct 27.2 % LOW MCV 88.1 fL MCH 28.6 pg MCHC 32.5 gm/dL RDW 20.9 % HI Platelet 300.0 E9/L MPV 8.4 fL Neutro Auto 68.2 % Lymph Auto 16.9 % [place] Auto 10.8 % Eos Auto 3.4 % Basophil Auto 0.7 % Neutro Absolute 4.7 E9/L Lymph Absolute 1.2 E9/L [place] Absolute 0.8 E9/L Eos Absolute 0.2 E9/L Basophil Absolute 0.1 E9/L RBC Morph Normal Anisocytosis Present Glucose Lvl 89 mg/dL BUN 19 mg/dL Creatinine 1.0 mg/dL eGFR 54 mL/min/1.73 m2 LOW eGFR AA >60 mL/min/1.73 m2 BUN/Creat Ratio 19 Sodium Lvl 142 mmol/L Potassium Lvl 3.8 mmol/L Chloride 111 mmol/L CO2 25 mmol/L AGAP 10 mEq/L Calcium Lvl 8.4 mg/dL LOW , Labs (Last four charted values)Hgb L 8.8 (JAN 18) Hct L 27.2 (JAN 18) Cr 1.0 (JAN 18) . Plan [place] [employer]esthesi[employer] (ASA) physical status classification: Class II. Anesthetic Preoperative Plan Anesthesia: General. . Anesthetic plan, risks, benefits, and alternatives discussed with the patient and/or family. Patient verbalized understanding. Pt agrees with anesthetic plan and accepts all risks including but not limited to; Bleeding, infection, nerve injury, dental injury, eye injury, headache, low blood pressure, serious problems with the heart and lungs, allergic reactions, and .. Normal [facility] Comment on above: Result Comment: Elec tronically Signed By: Kevin Morales MD\.br\Date and Time Signed: 01/19/17 08:48 EDT Progress Note-Physician Patient: JESSICA GONZALEZ Age: 71 years Sex: Female : 1945 Associated Diagnoses: None Author: Kevin Morales MD Postoperative Information Post Operative Note: Post Anesthesia Care Unit. Anesthetic utilized: General. Health Status Allergies: Allergic Reactions (All)No Known Allergies Problem list: All ProblemsImpaired skin integrity / SNOMED CT 76801479 / ConfirmedProblem added on documentation of skin impairments.At risk for falls / SNOMED CT 783476077 / PossibleProblem added when Risk for Falls Careplan was initiated.Smoker / IMO [id number] / ConfirmedAdded secondary to documentation in Social History. Physical Examination Intake and Output adequate hydration Measurements from flowsheet : Measurements 01/18/2017 06:20 EDT Weight Measured 67.7 kg 01/18/2017 01:30 EDT Height/Length Measured 155 cm Weight Measured 67.4 kg 01/17/2017 17:50 EDT Height/Length Measured 155 cm Usual Weight 68 kg Body Mass Index Measured 28.05 kg/m2 Weight Measured 67.4 kg 01/17/2017 17:42 EDT Height/Length Measured 155 cm [place] Body Weight Calculated 47.854 kg BSA Measured 1.7 m2 Body Mass Index Measured 28.05 kg/m2 Weight Measured 67.4 kg Pain assessment: Self-reports no pain. General: Alert and oriented, No acute distress. HENT: Oral mucosa is moist, dentition unchanged. Respiratory: Respirations: Are within normal limits. Pattern: Regular. Cardiovascular: Normal rate. Neurologic: Alert, Oriented. Review / Management Lines and Tubes: Peripheral catheter. ECG interpretation: Within normal limits. Condition: Stable. Assessment Anesthetic outcome No anesthetic complications noted. Adequate pain relief. No Complaint of nausea and vomiting. Plan Transfer/ Discharge: Patient can be discharged from PACU when criteria met, Patient can be discharged from anesthesia care. Condition stable. Normal [facility] Comment on above: Result Comment: Elec tronically Signed By: Kevin Morales MD\.br\Date and Time Signed: 01/19/17 08:48 EDT [facility] 01-19-2017 # of Units 2 Invalid Interpretation Code [facility] Comment on above: Performed By: #### 2 327144, [id number], 7082370, 75293676, 9848307, 26891090 ####[facility] [address] [place] [address] Date Required 01/19/2017 14:09 EDT Invalid Interpretation Code [facility] Comment on above: Performed By: #### 2 740577, 90816778, 9409350, 61136690, 8419285, 09076901 ####[facility] [address] [place] [address] Product Type None Required Invalid Interpretation Code [facility] Comment on above: Performed By: #### 2 274711, 10958747, 1595575, 10398103, 9760400, 96445839 ####[facility] [address] [place] [address] eGFRon 01-19-2017 eGFR (black) mL/min/{1.73_m2} Normal >=59 [facility] Comment on above: Order Comment: Order added by Discern Expert. Result Comment: eGFR is race adjusted. AA=. Performed By: #### 2 221092, 40967211, 7970911, 16524434, 9406378, 36483997 ####[facility] [address] [place] [address] eGFR (non-black) mL/min/{1.73_m2} Normal >=59 [facility] Comment on above: Order Comment: Order added by Discern Expert. Result Comment: Digital Campaign Specialist alida kidney disease could be indicated at eGFR's of less than 60 mL/min/1.73m2. Kidney failure is indicated at less than 15 mL/min/1.73m2. Performed By: #### 2 256190, 61580988, 5749714, 06710084, 0852170, 23797028 ####[facility] [address] [place] [address] ABO/Rhon 01-18-2017 ABO/Rh AB POS Invalid Interpretation Code [facility] Comment on above: Order Comment: Caitlyn nt is in ambulatory surgery pre-op Performed By: #### 2 128367, 60203850, 9238467, 80923016, 3808440, 13972867 ####[facility] [address] [place] [address] ABO/Rh History Checkon 01-18 ABO/Rh History Check Type verified by second s Normal [facility] Comment on above: Performed By: #### 2 814978, 24258529, 7869692, 08656109, 5908192, 50324840 ####[facility] [address] [place] [address] ABO/Rh Retypeon 01-18-2017 ABO/Rh Retype Interp AB POS Invalid Interpretation Code [facility] Comment on above: Performed By: #### 2 893132, 41075470, 8749366, 81410742, 9202346, 35965143 ####[facility] [address] [place] [address] ABSCon 01-18-2017 ABSC Gel Interp Negative Normal [facility] Comment on above: Performed By: #### 2 491398, 56644889, 4706340, 71783761, 0148520, 71279185 ####[facility] [address] [place] [address] Auto Diffon 01-18-2017 Basophils Auto #/vol (Bld) 0.1 E9/L Normal 0.0-0.2 [facility] Comment on above: Order Comment: Order Added by Discern Expert. Performed By: #### 2 766117, 41854930, 1036818, 16330339, 2222176, 89142168 ####[facility] [address] [place] [address] Basophils Auto #/vol (Bld) 0.7 % Normal 0.0-2.0 [facility] Comment on above: Order Comment: Order Added by Discern Expert. Performed By: #### 2 648838, 59695155, 1749346, 13779166, 6493965, 11177718 ####[facility] [address] [place] [address] Eosinophils 0.2 E9/L Normal 0.0-0.5 [facility] Comment on above: Order Comment: Order Added by Mallory Expert. Performed By: #### 2 164232, 84187115, 1899784, 33879575, 3226498, 96110859 ####[facility] [address] [place] [address] Eosinophils/100 leukocytes 3.4 % Normal 0.0-8.0 [facility] Comment on above: Order Comment: Order Added by Mallory Expert. Performed By: #### 2 857559, 02222245, 6199288, 96242516, 2369273, 88049096 ####[facility] [address] [place] [address] Lymphocytes 1.2 E9/L Normal 1.0-4.0 [facility] Comment on above: Order Comment: Order Added by Mallory Expert. Performed By: #### 2 612764, 24011671, 0269731, 88369234, 5790139, 50065050 ####[facility] [address] [place] [address] Lymphocytes/100 leukocytes 16.9 % Normal 14.0-50.0 [facility] Comment on above: Order Comment: Order Added by Mallory Expert. Performed By: #### 2 199863, 21710870, 3266911, 28683061, 5046356, 70240089 ####[facility] [address] [place] [address] Monocytes 0.8 E9/L Normal 0.2-1.0 [facility] Comment on above: Order Comment: Order Added by Mallory Expert. Performed By: #### 2 482468, 74059850, 0584947, 50207539, 8554714, 88671193 ####[facility] [address] [place] [address] Monocytes/100 leukocytes 10.8 % Normal 4.0-14.0 [facility] Comment on above: Order Comment: Order Added by Discern Expert. Performed By: #### 2 933877, 26762079, 8420229, 17958413, 1372237, 77489467 ####[facility] [address] [place] [address] Neutrophils 4.7 E9/L Normal 2.0-7.5 [facility] Comment on above: Order Comment: Order Added by Discern Expert. Performed By: #### 2 845041, 06994209, 2804155, 75439612, 6233579, 72166563 ####[facility] [address] [place] [address] Neutrophils/100 leukocytes 68.2 % Normal 36.0-75.0 [facility] Comment on above: Order Comment: Order Added by Mallory Expert. Performed By: #### 2 002247, 06847468, 6464749, 94236941, 4980645, 80444490 ####[facility] [address] [place] [address] BMPon 01-18-2017 Anion gap 10 mmol/L Normal 6-16 [facility] Comment on above: Performed By: #### 2 715895, 54271785, 3612661, 58609740, 1687193, 35144309 ####[facility] [address] [place] [address] BUN/Creatinine Ratio 19 No Units Normal 10-20 [facility] Comment on above: Performed By: #### 2 330050, 71860981, 2337144, 60619258, 1296136, 17560468 ####[facility] [address] [place] [address] Calcium 8.4 mg/dL Low 8.9-11.1 [facility] Comment on above: Performed By: #### 2 219214, 00947714, 2118689, 05229976, 2170318, 78964664 ####[facility] [address] [place] [address] Chloride 111 mmol/L Normal 101-111 [facility] Comment on above: Performed By: #### 2 290792, 06624035, 1843821, 85530132, 7885557, 64976523 ####[facility] [address] [place] [address] CO2 25 mmol/L Normal 21-31 [facility] Comment on above: Performed By: #### 2 091788, 35291165, 7692986, 08457447, 3813897, 80533050 ####[facility] [address] [place] [address] Creatinine 1.0 mg/dL Normal 0.5-1.3 [facility] Comment on above: Performed By: #### 2 704939, 02750727, 7517476, 92612096, 9479425, 03896479 ####[facility] [address] [place] [address] Glucose mass conc 89 mg/dL Normal 55-199 [facility] Comment on above: Result Comment: If t his glucose result represents a fasting glucose, interpretation should refer to the following reference range: 55-99 mg/dL Performed By: #### 2 255485, 72136556, 6099690, 23238383, 6250300, 08803236 ####[facility] [address] [place] [address] Potassium molar conc 3.8 mmol/L Normal 3.5-5.3 [facility] Comment on above: Performed By: #### 2 218915, 33149410, 2809508, 46155676, 9466092, 64811968 ####[facility] [address] [place] [address] Sodium 142 mmol/L Normal 135-145 [facility] Comment on above: Performed By: #### 2 953014, 70932501, 8599345, 94721615, 3554061, 29066072 ####[facility] [address] [place] [address] Urea nitrogen 19 mg/dL Normal 5-21 [facility] Comment on above: Performed By: #### 2 862167, 17958901, 8022974, 41149368, 2565945, 18988277 ####[address] [place] [address] Blood Bank ID#on 01-18-2017 BBID# [id number] Invalid Interpretation Code [facility] Comment on above: Performed By: #### 2 108393, 43211998, 3207992, 92425587, 2614919, 35909920 ####[address] [place] [address] CBC w/ Auto Diffon 7 Erythrocyte distribution width Auto Ratio (RBC) 20.9 % High 10.9-14.2 [facility] Comment on above: Performed By: #### 2 210687, 31318749, 1720103, 78729811, 6021529, 64382100 ####[address] [place] [address] Erythrocytes (RBC) 3.1 E12/L Low 4.3-5.9 [facility] Comment on above: Performed By: #### 2 620845, 02919947, 9809297, 49231244, 5030477, 90628452 ####[address] [place] [address] Hematocrit (HCT) 27.2 % Low 34.0-46.0 [facility] Comment on above: Performed By: #### 2 794528, 75847483, 3329484, 27433394, 1313689, 22326319 ####[address] [place] [address] Hemoglobin mass conc (Bld) 8.8 g/dL Low 12.0-16.0 [facility] Comment on above: Performed By: #### 2 056149, 24645382, 8694546, 60113155, 9316433, 91899944 ####[address] [place] [address] MCH 28.6 pg Normal 27.0-34.0 [facility] Comment on above: Performed By: #### 2 020238, 09069631, 5273601, 98399551, 6098029, 17093656 ####[address] [place] [address] MCHC mass conc (RBC) 32.5 g/dL Normal 31.4-39.3 [facility] Comment on above: Performed By: #### 2 803694, 58152885, 1196288, 29356340, 2019050, 77303486 ####[address] [address] MCV 88.1 fL Normal 80.0-100.0 [facility] Comment on above: Performed By: #### 2 338096, 08836503, 8155396, 39529088, 5739234, 78283933 ####[address] [address] Platelet mean volume (PMV) 8.4 fL Normal 6.4-10.8 [facility] Comment on above: Performed By: #### 2 446486, 64705523, 1293868, 50287436, 7724494, 34812229 ####[address] [address] Platelets 300.0 E9/L Normal 150.0-500. 0 [facility] Comment on above: Performed By: #### 2 792072, 27844659, 3280584, 21780560, 6815645, 23289125 ####[address] [address] WBC (Leukocytes) 6.9 E9/L Normal 4.0-11.0 [facility] Comment on above: Performed By: #### 2 297187, 56745506, 4114390, 33373271, 2369051, 62802286 ####[address] [place] [address] Interdisciplinary Note - PTo n 01-18-2017 Interdisciplinary Note - PT PT eval completed w/ recommendations for daily PT for ther exer, transfers, bed mobility, and gait training w/ front wheel walker 50% weight bearing and dislocation precautions. Recommend home health versus skilled care for additional PT at discharge. Telly [facility] Main OR PACU I Recordon 12-25 Main OR PACU I Record PACU Phase I Document Type FT Summary Primary Physician: Ryan Harrell DO Finalized Date/Time: 01/18/17 12:03:54 Pt. Name: JESSICA GONZALEZ Shonna Sheridan/Sex: 1945 Female Med Rec #: [id number] Physician: Ryan Harrell DO Financial #: [id number] Pt. Type: I Room/Bed: [facility]/ Admit/Disch: 01/17/17 17:21:00 - Institution: Case Times PACU I FT Pre-Care Text: Identifies barriers to communication and implements measures to provide psychological support Develops individualized plan of care, and ensures continuity of care Maintains patient's dignity and privacy, and maintains patient confidentiality Identifies and reports philosophical, cultural, and spiritual beliefs and values Identifies individual values and wishes concerning care Implements aseptic technique, and administers prescribed antibiotic therapy and immunizing agents as ordered Evaluates postoperative tissue perfusion Implements thermoregulation measures, and monitors body temperature Evaluates postoperative respiratory status Evaluates postoperative cardiac status Evaluates postoperative neurological status Assesses pain control, collaborated in initiating patient-controlled analgesia and implements alternative methods of pain control Verifies allergies, administers prescribed medications and solutions, evaluates response to medications Entry 1 In PACU I 01/18/17 11:07:00 Discharge from PACU 01/18/17 11:57:00 I Outcomes Met? Yes Last Modified By: Jenelle Anglin RN 01/18/17 11:57:22 Post-Care Text: The patient demonstrates knowledge of the expected response to the operative or invasive procedure The patient's care is consistent with the individualized perioperative plan of care The patient's right to privacy is maintained The patient's value system, lifestyle, ethnicity, and culture are considered, respected, and incorporated into the perioperative plan of care The patient participates in decisions affecting his or her perioperative plan of care The patient is free from signs and symptoms of infection The patient has wound/tissue perfusion consistent with or improved from baseline levels established preoperatively The patient is at or returning to normothermia at the conclusion of the immediate postoperative period The patient's respiratory function is consistent with or improved from baseline levels established preoperatively The patient's cardiovascular status is consistent with or improved from baseline levels established preoperatively The patient's cardiovascular status is consistent with or improved from baseline levels established preoperatively The patient demonstrates and/or reports adequate pain control throughout the perioperative period The patient received appropriate medication(s), safely administered during the perioperative period Acuity Level PACU I FT Entry 1 Start Time 01/18/17 11:07:00 Stop Time 01/18/17 11:57:00 Acuity Level Acuity Level I Last Modified By: Jenelle Anglin RN 01/18/17 11:57:34 Finalized By: Jenelle Anglin RN Document Signatures Signed By: Jenelle Anglin RN 01/18/17 11:57 Jenelle Anglin RN 01/18/17 12:03 Normal [facility] Main OR Preoperative Recordo n 01-18-2017 Main OR Preoperative Record Holding Area Document Type FT Summary Primary Physician: Ryan Harrell DO Finalized Date/Time: 01/18/17 09:06:44 Pt. Name: CARLOSJESSICA/Sex: 1945 Female Med Rec #: [id number] Physician: Ryan Harrell DO Financial #: [id number] Pt. Type: I Room/Bed: [place] [address] Admit/Disch: 01/17/17 17:21:00 - Institution: Case Times Holding FT Pre-Care Text: Verifies consent for planned procedure, identifies individual values and wishes concerning care, includes family members in perioperative teaching Secures patient's records' belongings, and valuables, maintains patient's dignity and privacy, and maintains patient confidentiality Entry 1 In Holding 01/18/17 08:43:00 Outcomes Met? Yes Last Modified By: Fitz Aguilar RN 01/18/17 08:58:08 Post-Care Text: The patient participates in decisions affecting his or her perioperative plan of care The patient's right to privacy is maintained Surgery Checklist FT Entry 1 Patient Birthday, Blood Band, Procedure Blood Consent, History Identification: ID Band Check, Patient Verification: and Physical, Surgical Participation Consent, With Patient NPO after Midnight: Yes Date/Time: 01/17/17 22:00:00 Preop Results EKG, Labs Results Reviewed T&S drawn per Reviewed: Comments: Andrew for decreased H&H Personal Items: Dentures Personal Items Dentures removed in OR Comment: Complaints of Pain: Yes Pain Comment: RATED PAIN 2-3/10 ACHING INTERMITTENT PAIN ON LEFT HIP, STATED TOLERABLE Operative Site Yes Marked By: DR. HARRELL SURGEON Marking: Location: LEFT HIP Availability Equipment, Implants, Verified: X-Ray Does Patient Smoke Yes Patient states Yes Comment - Adult INPATIENT- FAMILY postop adult Supervision PRESENT supervision available Case Cancelled in No Holding Area see comments below for reason Last Modified By: Fitz Aguilar RN 01/18/17 09:06:37 Finalized By: Fitz Aguilar RN Document Signatures Signed By: Fitz Aguilar RN 01/18/17 09:06 Normal [facility] Morphon 01-18-2017 Anisocytosis presence Present Normal [facility] Comment on above: Order Comment: Order Added by Discern Expert. Performed By: #### 2 395594, 38503398, 6957239, 95406037, 5882587, 41618210 ####[facility] [address] [place] [address] Blood morphology Normal Normal [facility] Comment on above: Order Comment: Order Added by Discern Expert. Performed By: #### 2 930551, 11657661, 1612865, 02963134, 6068918, 22533207 ####[facility] [address] [place] [address] Progress Note-Physicianon Progress Note-Physician Patient: JESSICA GONZALEZ Age: 71 years Sex: Female : 1945 Associated Diagnoses: None Author: Raquel MEAD, Ivory Subjective Pt with no complaints overnight, pain controlled. No CP or SOB. Health Status Allergies: Allergic Reactions (Selected)No Known Allergies Current medications: Medications (11) ActiveScheduled: (4)ceFAZolin 2 gram 50 mL, IV Piggyback, Onceleflunomide 20 mg Tab [F] 20 mg 1 tab(s), Oral, Dailylevothyroxine 88 mcg (0.088 mg) Tab [F] 88 microgram 1 tab(s), Oral, Dailynicotine 21 mg/24 hr Transderm ER Film [F] 21 mg 1 patch(es), TransDermal, DailyContinuous: (1)Sodium Chloride 0.9% 1,000 mL 1,000 mL, IV, 75 mL/hrPRN: (6)acetaminophen 325 mg Tab UD [F] 650 mg 2 tab(s), Oral, h0fipfxunpenncuat-juqmscvlobk 325 mg-5 mg Tab [F] 1 tab(s), Oral, q4hrAl hydroxide/Mg hydroxide/simethicone 200 mg-200 mg-20 mg/5 mL Oral Susp 30 mL [F] 30 mL, Oral, n7hvfpmyxzzbk hydroxide 8% Oral Susp 30 mL [F] 30 mL, Oral, t6ikaadodmka 2 mg/mL preservative-free SOLN [F] 2 mg 1 mL, IV Push, w0raanmkxsviffd 2 mg/mL Inj [F] 4 mg 2 mL, IV Push, q6hr Problem list: All ProblemsSmoker / IMO [id number] / ConfirmedAdded secondary to documentation in Social History.At risk for falls / SNOMED CT 858250137 / PossibleProblem added when Risk for Falls Careplan was initiated.Impaired skin integrity / SNOMED CT 03684659 / ConfirmedProblem added on documentation of skin impairments. Histories Past Medical History: No active or resolved past medical history items have been selected or recorded. Family History: Procedure history: back surgery on 05/26/2015 at 69 Years.Comments:01/17/2017 18:16 - Nelson VALENCIA, Spqymy9476Mhhua cancer (SNOMED CT [id number]-8152-55CT-02705 [id number]) on 05/26/2015 at 69 Years.Ear prosthesis (SNOMED CT 817144868) on 05/26/2012 at 66 Years.Knee arthroplasty (SNOMED CT 028431053) on 05/26/2007 at 61 Years.rotator cuff on 05/26/2002 at 56 Years. Social History Social & Psychosocial HabitsNo Data Available. Objective Vitals Signs (last 24 hrs) Last Charted Minimum MaximumTemp 36.3 (JAN 18 07:39) 36.3 (JAN 17 17:42) 37.1 (JAN 18 00:25)Heart Rate 72 (JAN 18 07:44) 68 (JAN 17 17:42) 79 (JAN 18 04:00)Resp Rate 18 (JAN 18 07:43) 16 (JAN 17 17:42) 18 (JAN 18 07:43)SBP 105 (JAN 18 07:39) 102 (JAN 18 04:13) 111 (JAN 17 19:50)DBP 65 (JAN 18 07:39) 65 (JAN 18 07:39) 69 (JAN 17 17:42)MAP 78 (JAN 18:39) 78 (JAN 18:39) 78 (JAN 18:39)SpO2 94 (JAN 18:44) 94 (JAN 18 04:00) 98 (JAN 17 17:42) General: Alert and oriented, No acute distress. Respiratory: Lungs are clear to auscultation, Respirations are non-labored, Breath sounds are equal. Cardiovascular: Normal rate, Regular rhythm, No murmur, No gallop. Gastrointestinal: Soft, Non-tender, Non-distended, Normal bowel sounds. Integumentary: Warm, Dry, [place]. Neurologic: Alert, No focal deficits, Cranial Nerves II-XII are grossly intact. Psychiatric: Cooperative, Appropriate mood & affect. Review / Management Results review: All Results 01/18/2017 05:32 EDT WBC 6.9 E9/L RBC 3.1 E12/L LOW Hgb 8.8 gm/dL LOW Hct 27.2 % LOW MCV 88.1 fL MCH 28.6 pg MCHC 32.5 gm/dL RDW 20.9 % HI Platelet 300.0 E9/L MPV 8.4 fL Neutro Auto 68.2 % Lymph Auto 16.9 % [place] Auto 10.8 % Eos Auto 3.4 % Basophil Auto 0.7 % Neutro Absolute 4.7 E9/L Lymph Absolute 1.2 E9/L [place] Absolute 0.8 E9/L Eos Absolute 0.2 E9/L Basophil Absolute 0.1 E9/L RBC Morph Normal Anisocytosis Present Glucose Lvl 89 mg/dL BUN 19 mg/dL Creatinine 1.0 mg/dL eGFR 54 mL/min/1.73 m2 LOW eGFR AA >60 mL/min/1.73 m2 BUN/Creat Ratio 19 Sodium Lvl 142 mmol/L Potassium Lvl 3.8 mmol/L Chloride 111 mmol/L CO2 25 mmol/L AGAP 10 mEq/L Calcium Lvl 8.4 mg/dL LOW . Impression and Plan 1. Acute displaced left femoral neck fracture- pain control- discussed with ortho Dr. Harrell, NPO today for OR - hold heparin for OR2. Hypothyroid- synthroid3. History of rheumatoid arthritis- leflunamide4. Tobacco abuse disorder- counseled on cessation, nicotine patch5. DVT Prophylaxis- SCDs, Normal [facility] Comment on above: Result Comment: Elec tronically Signed By: Raquel MEAD, Ivory\.br\Date and Time Signed: 01/18/17 09:02 EDT XR Hip 1 View Left + Pelviso n 01-18-2017 XR Hip 1 View Left + Pelvis Exam Date/Time:01/18/2017 11:44 EDTReason for Exam:Post OpReportIMPRESSION: SATISFACTORY POSTOPERATIVE APPEARANCE OF THE LEFT HIP. CLINICAL HISTORY: Osteoarthritis, postop left hip replacement, postoperativeevaluation of left hipCOMPARISONS: None available.FINDINGS: Portable supine AP film of the pelvis to include both hips and Portablelateral view of the left hip demonstrate satisfactory anatomic alignment and positionof the left hip prosthesis. There is no radiographic evidence of loosening of theprosthesis. There is no acute fracture. There is no hip dislocation. Visible pelvisappears intact.. FINAL REPORT Dictated: 01/18/2017 12:17 pm Winsotn Tucker MD Signed (Electronic Signature): 01/18/2017 12:17 pm Signed by: Winston Tucekr MD Transcribed by: SALEEM Technologist: CHARBEL, Normal [facility] eGFRon 01-18-2017 eGFR (black) mL/min/{1.73_m2} Normal >=59 [facility] Comment on above: Order Comment: Order added by Discern Expert. Result Comment: eGFR is race adjusted. AA=. Performed By: #### 2 045882, 38754498, 6952856, 66047859, 9885866, 84141187 ####[facility] [address] [place] [address] eGFR (non-black) 54 mL/min/1.73 m2 Low >=59 F [facility] Comment on above: Order Comment: Order added by Discern Expert. Result Comment: Digital Campaign Specialist alida kidney disease could be indicated at eGFR's of less than 60 mL/min/1.73m2. Kidney failure is indicated at less than 15 mL/min/1.73m2. Performed By: #### 2 966344, 22462228, 3766946, 17999734, 7730540, 92359775 ####[facility] [address] [place] [address] History and Physicalon 01-17 History and Physical Patient: MEGAN GONZALEZ Age: 71 years Sex: Female : 1945 Associated Diagnoses: None Author: Ivory García MD Basic Information Accompanied by: No one. Source of history: Self. Referral source: transfer from OSH . History limitation: None. Chief Complaint left hip pain History of Present Illness Pt is a 71 F PMH hypothyroid, rheumatoid arthritis (on leflonamide, only takes PO prednisone 2.5 mg po for a flare 1-2 times a month), COPD (not on home O2) admitted as a transfer from OSH. Pt says about 5 days ago while walking noticed some left hip pain. Pt states she did not fall. She says pain progressively got worse and was evaluated at [place] [facility] today. Pt was found to have a left displaced femoral neck fracture. pt denies any history of CAD, CVA, CKD, DM, HTN. Review of Systems Constitutional: Negative. Eye: Negative. Ear/Nose/Mouth/Throat: Negative. Respiratory: Negative. Cardiovascular: Negative. Gastrointestinal: Negative. Genitourinary: Negative. Hematology/Lymphatics: Negative. Endocrine: Negative. Immunologic: Negative. Musculoskeletal: left hip pain . Integumentary: Negative. Neurologic: Negative. Psychiatric: Negative. All other systems are negative Health Status Allergies: Allergic Reactions (Selected)No Known Allergies Current medications: Medications (10) ActiveScheduled: (3)leflunomide 20 mg Tab [F] 20 mg 1 tab(s), Oral, Dailylevothyroxine 88 mcg (0.088 mg) Tab [F] 88 microgram 1 tab(s), Oral, Dailynicotine 21 mg/24 hr Transderm ER Film [F] 21 mg 1 patch(es), TransDermal, DailyContinuous: (1)Sodium Chloride 0.9% 1,000 mL 1,000 mL, IV, 75 mL/hrPRN: (6)acetaminophen 325 mg Tab UD [F] 650 mg 2 tab(s), Oral, j7ituhoqhuaohnsrk-xboqvpekfag 325 mg-5 mg Tab [F] 1 tab(s), Oral, q4hrAl hydroxide/Mg hydroxide/simethicone 200 mg-200 mg-20 mg/5 mL Oral Susp 30 mL [F] 30 mL, Oral, m1qkllivrhyup hydroxide 8% Oral Susp 30 mL [F] 30 mL, Oral, y0pxfvfgmnhh 2 mg/mL preservative-free SOLN [F] 2 mg 1 mL, IV Push, s8xqpqfnlwrbysa 2 mg/mL Inj [F] 4 mg 2 mL, IV Push, q6hr Problem list: All ProblemsSmoker / IMO [id number] / ConfirmedAdded secondary to documentation in Social History. Histories Past Medical History: hypothyroid, rheumatoid arthritis, COPD Family History: reviewed not pertinent to current HPI Procedure history: back surgery on 05/26/2015 at 69 Years.Comments:01/17/2017 18:16 - Nelson VALENCIA, [id number] cancer (SNOMED CT [id number]) on 05/26/2015 at 69 Years.Ear prosthesis (SNOMED CT [id number]) on 05/26/2012 at 66 Years.Knee arthroplasty (SNOMED CT [id number]) on 05/26/2007 at 61 Years.rotator cuff on 05/26/2002 at 56 Years. Social History Social & Psychosocial HabitsNo Data Available. tobacco 1 ppd x 40+ years, no alcohol or ilicit drug use. Physical Examination Vitals Signs (last 24 hrs) Last Charted Minimum MaximumTemp 36.3 (JAN 17 17:42) 36.3 (JAN 17 17:42) 36.3 (JAN 17 17:42)Heart Rate 68 (JAN 17 17:42) 68 (JAN 17 17:42) 68 (JAN 17 17:42)Resp Rate 16 (JAN 17 17:42) 16 (JAN 17 17:42) 16 (JAN 17 17:42)SBP 105 (JAN 17 17:42) 105 (JAN 17 17:42) 105 (JAN 17 17:42)DBP 69 (JAN 17 17:42) 69 (JAN 17 17:42) 69 (JAN 17 17:42)SpO2 98 (JAN 17 17:42) 98 (JAN 17 17:42) 98 (JAN 17 17:42) General: Alert and oriented, No acute distress. HENT: Normocephalic, Oral mucosa is moist. Neck: Supple, Non-tender. Respiratory: Lungs are clear to auscultation, Respirations are non-labored, Breath sounds are equal, Symmetrical chest wall expansion. Cardiovascular: Normal rate, Regular rhythm, No murmur, No gallop, No edema. Gastrointestinal: Soft, Non-tender, Non-distended, Normal bowel sounds. Musculoskeletal pain on palptation of left hip . Neurologic: Alert, Oriented, No focal deficits, Cranial Nerves II-XII are grossly intact. Cognition and Speech: Oriented. Psychiatric: Cooperative, Appropriate mood & affect. Integumentary: Warm, Dry, [place]. Review / Management Results review: No qualifying data available. labs from OSH reviewed xray left hip from OSH shows an acute displaced left femoral neck fracture Impression and Plan 1. Acute displaced left femoral neck fracture- pain control- discussed with ortho Dr. Harrell, plan for OR tomorrow, NPO after midnight- hold heparin for OR2. Hypothyroid- synthroid3. History of rheumatoid arthritis- leflunamide4. Tobacco abuse disorder- counseled on cessation, nicotine patch5. DVT Prophylaxis- SCDs,- pt will be admitted for greater than 2 midnight stay for above Normal [facility] Comment on above: Result Comment: Elec tronically Signed By: Raquel MEAD, Ivory\.br\Date and Time Signed: 01/17/17 18:54 EDT Vital Signs Date Time Vital Sign Value Performing Clinician Facility 09-05-2022 15:15-0400 Body height 154.94 cm Stuart Zamora Other [facility] Other 09-05-2022 15:15-0400 Body temperature 98 [degF] Stuart Ball Other [facility] Other 09-05-2022 15:15-0400 Diastolic blood pressure 74 mm[Hg] Stuart Ball Other [facility] Other 09-05-2022 15:15-0400 Respiratory rate 16 /min Stuart Ball Other [facility] Other 09-05-2022 15:15-0400 SaO2% (BldA) [Mass fraction] 92 % Stuart Ball Other [facility] Other 09-05-2022 15:15-0400 Systolic blood pressure 117 mm[Hg] Stuart Ball Other [facility] Other 05-31-2021 11:30-0500 Body height 154.94 cm Lotus Maloney Other [facility] Other 05-31-2021 11:30-0500 Body mass index (BMI) [Ratio] 26.07 kg/m2 Lotus Drewdot Other [facility] Other 05-31-2021 11:30-0500 Body temperature 97.3 [degF] Lotus Drewdot Other [facility] Other 05-31-2021 11:30-0500 Body weight 62.6 kg Lotus Drewdot Other [facility] Other 05-31-2021 11:30-0500 Diastolic blood pressure 88 mm[Hg] Lotus Drewziono Other [facility] Other 05-31-2021 11:30-0500 SaO2% (BldA) [Mass fraction] 95 % Lotus Maloney Other [facility] Other 05-31-2021 11:30-0500 Systolic blood pressure 140 mm[Hg] Lotus Maloney Other [facility] Other 03-29-2021 15:00-0400 Body height 154.94 cm Marion Olexa Other [facility] Other 03-29-2021 15:00-0400 Body mass index (BMI) [Ratio] 26.07 kg/m2 Marion Olexa Other [facility] Other 03-29-2021 15:00-0400 Body weight 62.6 kg Marion Olexa Other [facility] Other 11-29-2020 10:36-0400 Respiratory rate 16 /min Chontelle Degler DO Work Phone: [facility] 11-29-2020 07:27-0400 Body temperature 97.5 [degF] Chontelle Degler DO Work Phone: [facility] 11-29-2020 07:27-0400 Diastolic blood pressure 67 mm[Hg] Chontelle Degler DO Work Phone: [facility] 11-29-2020 07:27-0400 Heart rate 80 /min Chontelle Degler DO Work Phone: [facility] 11-29-2020 07:27-0400 SaO2% (BldA) [Mass fraction] 92 % Chontelle Degler DO Work Phone: [facility] 11-29-2020 07:27-0400 Systolic blood pressure 116 mm[Hg] Chontelle Degler DO Work Phone: [facility] 11-27-2020 06:26-0400 Body mass index (BMI) [Ratio] 25.65 kg/m2 Chontelle Degler DO Work Phone: [facility] 11-27-2020 06:26-0400 Body weight 57.6 kg Chontelle Degler DO Work Phone: [facility] 11-17-2020 15:51-0400 Respiratory rate 0 /min Chontelle Degler DO Work Phone: [facility] 11-17-2020 15:51-0400 SaO2% (BldA) [Mass fraction] 100.0 % Chontelle Degler DO Work Phone: [facility] 11-13-2020 12:59-0400 Body height 149.9 cm Chontelle Degler DO Work Phone: [facility] 11-09-2020 15:21-0400 Body height 149.9 cm Dl Patiño MD Work Phone: [facility] 11-09-2020 15:21-0400 Body mass index (BMI) [Ratio] 27.27 kg/m2 Dl Patiño MD Work Phone: [facility] 11-09-2020 15:21-0400 Body temperature 98.2 [degF] Dl Patiño MD Work Phone: [facility] 11-09-2020 15:21-0400 Body weight 61.24 kg Dl Patiño MD Work Phone: [facility] 11-09-2020 15:21-0400 Diastolic blood pressure 65 mm[Hg] Dl Patiño MD Work Phone: [facility] 11-09-2020 15:21-0400 Heart rate 97 /min Dl Patiño MD Work Phone: [facility] 11-09-2020 15:21-0400 Systolic blood pressure 117 mm[Hg] Dl Patiño MD Work Phone: [facility] Encounters Encounter Date Encounter Type Care Provider Facility Start: 05-22-2023 End: 05-22-2023 ambulatory Stuart Ball Other [facility] Other Start: 05-22-2023 Telephone encounter Stuart Zamora [facility] Start: 05-12-2023 End: 05-12-2023 ambulatory Stuart Zamora Other [facility] [facility] Other Start: 05-12-2023 Telephone encounter Stuart Zamora [facility] Start: 05-01-2023 End: 05-01-2023 ambulatory Stuart Zamora Other [facility] [facility] Other Start: 05-01-2023 Transitional care manage srvc 14 day discharge Stuart Zamora [facility] Start: 04-24-2023 End: 04-24-2023 ambulatory Stuart Zamora Other [facility] Other Start: 04-24-2023 Telephone encounter Stuart Ball [facility] Start: 04-23-2023 End: 04-23-2023 ambulatory Stuart Zamora Other [facility] Other Start: 04-23-2023 Telephone encounter Stuart Zamora [facility] Start: 04-22-2023 End: 04-22-2023 ambulatory Stuart Zamora Other [facility] Other Start: 04-22-2023 Telephone encounter Stuart Zamora [facility] Start: 04-16-2023 End: 04-16-2023 ambulatory Stuart Zamora Other [facility] Other Start: 04-16-2023 Telephone encounter Stuart Ball [facility] Start: 04-14-2023 End: 04-14-2023 ambulatory Stuart Ball Other [facility] Other Start: 04-14-2023 Telephone encounter Stuart Zamora [facility] Start: 04-10-2023 End: 04-10-2023 ambulatory Stuart Ball Other [facility] [facility] Other Start: 04-10-2023 Nursing facility discharge management 30 minutes Stuart Ball [facility] Start: 04-10-2023 Telephone encounter Stuart Zamora [facility] Start: 04-07-2023 End: 04-07-2023 ambulatory Stuart Zamora Other [facility] Other Start: 04-07-2023 Telephone encounter Stuart Zamora [facility] Start: 04-04-2023 End: 04-04-2023 ambulatory Stuart Zamora Other [facility] Other Start: 04-04-2023 Telephone encounter Stuart Zamora [facility] Start: 03-20-2023 End: 03-20-2023 ambulatory Stuart Zamora Other [facility] Other Start: 03-20-2023 Sbsq nursing facil care/day minor complj 15 min Stuart Ball [facility] Start: 03-20-2023 Telephone encounter Stuart Zamora [facility] Start: 03-12-2023 End: 03-12-2023 ambulatory Stuart Zamora Other [facility] Other Start: 03-12-2023 Telephone encounter Stuart Zamora [facility] Start: 03-05-2023 End: 03-05-2023 ambulatory Stuart Zamora Other [facility] [facility] Other Start: 03-05-2023 Telephone encounter Stuart Zamora [facility] Start: 02-26-2023 End: 02-26-2023 ambulatory Stuart Zamora Facility:[facility] Start: 02-20-2023 End: 02-20-2023 ambulatory Stuart Ball Other [facility] [facility] Other Start: 02-20-2023 Sbsq nursing facil care/day minor complj 15 min Stuart [facility] Start: 02-18-2023 End: 02-18-2023 ambulatory [facility] Start: 01-16-2023 End: 01-16-2023 ambulatory Stuart Ball Other [facility] Other Start: 01-16-2023 Sbsq nursing facil care/day new problem 25 min [facility] Start: 01-13-2023 End: 01-13-2023 ambulatory Stuart Ball Other [facility] [facility] Other Start: 01-13-2023 Telephone encounter Stuart Ball [facility] Start: 12-19-2022 End: 12-19-2022 ambulatory Stuart Ball Other [facility] Other Start: 12-19-2022 Sbsq nursing facil care/day new problem 25 min [facility] Start: 11-28-2022 End: 11-28-2022 ambulatory Stuart Ball Other [facility] Other Start: 11-28-2022 Telephone encounter Stuart Ball [facility] Start: 11-14-2022 End: 11-14-2022 ambulatory Stuart Ball Other [facility] [facility] Other Start: 11-14-2022 Sbsq nursing facil care/day new problem 25 min [facility] Start: 11-13-2022 End: 11-13-2022 ambulatory Stuart Ball Other [facility] Other Start: 11-13-2022 Telephone encounter Stuart Ball [facility] Start: 11-12-2022 End: 11-12-2022 ambulatory [facility] Start: 11-10-2022 End: 11-10-2022 ambulatory Stuart Ball Other [facility] Other Start: 11-10-2022 Telephone encounter Stuart Ball [facility] Start: 11-04-2022 Evaluation and management of inpatient [facility] Start: 11-03-2022 Evaluation and management of inpatient KEVIN VARELA [facility] Start: 11-02-2022 End: 11-09-2022 Evaluation and management of inpatient KEVIN VARELA [facility] Start: 10-31-2022 End: 10-31-2022 ambulatory Stuart Zamora Facility:[facility] Start: 10-28-2022 End: 10-28-2022 ambulatory Stuart Sera Facility:[facility] Start: 10-28-2022 End: 10-28-2022 ambulatory DO Stuart Ball Work Phone: [facility] Work Phone: Start: 10-28-2022 End: 10-28-2022 Patient encounter procedure DO Stuart Sera Work Phone: [facility] Work Phone: Start: 10-24-2022 End: 10-24-2022 ambulatory Stuart Zamora Other [facility] [facility] Other Start: 10-24-2022 Telephone encounter Stuart PEPPER [facility] Start: 10-23-2022 End: 10-23-[address] STUART ZAMORA Facility:[facility] Start: 10-22-2022 End: 10-22-[address] [facility] Start: 10-19-2022 End: 10-19-2022 ambulatory Stuart Zamora Other [facility] [facility] Other Start: 10-19-2022 Telephone encounter [facility] Start: 10-16-2022 End: 10-16-[address] STUART ZAMORA Facility:[facility] Start: 10-09-2022 End: 10-09-[address] STUART ZAMORA Facility:[facility] Start: 10-03-2022 End: 10-03-2022 ambulatory Stuart Zamora Other [facility] Other Start: 10-03-2022 Sbsq nursing facil care/day new problem 25 min Stuart Zamora [facility] Start: 10-02-2022 End: 10-02-[address] STUART ZAMORA Facility:[facility] Start: 09-25-2022 End: 09-25-[address] STUART ZAMORA Facility:[facility] Start: 09-24-2022 End: 09-24-2022 ambulatory Stuart Zamora Other [facility] [facility] Other Start: 09-24-2022 Telephone encounter Stuart Zamora [facility] Start: 09-18-2022 Telephone encounter Stuart PEPPER [facility] Start: 09-18-2022 End: 09-19-[address] STUART ZAMORA [facility] Other Start: 09-17-2022 End: 09-17-2022 ambulatory DAVON [facility] Start: 09-16-2022 End: 09-16-[address] STUART ZAMORA Facility:[facility] Start: 09-12-2022 Telephone encounter Stuart PEPPER [facility] Start: 09-12-2022 End: 09-12-[address] STUART ZAMORA [facility] Other Start: 09-11-2022 Telephone encounter Stuart PEPPER [facility] Start: 09-11-2022 End: 09-11-[address] STUART ZAMORA [facility] Other Start: 09-10-2022 End: 09-10-2022 ambulatory KEVIN VARELA [facility] Start: 09-06-2022 End: 09-06-[address] STUART ZAMORA Facility:[facility] Start: 09-05-2022 End: 09-05-2022 ambulatory Stuart Zamora Other [facility] Other Start: 09-05-2022 Encounter for other preprocedural examination Stuart Zamora [facility] Start: 09-05-2022 Sbsq nurs facil care/day unstabl/new prob 35 min Stuart Zamora [facility] Start: 09-04-2022 End: 09-04-[address] STUART ZAMORA Facility:[facility] Start: 09-03-2022 End: 09-03-2022 ambulatory Stuart Zamora Other [facility] Other Start: 09-03-2022 Telephone encounter Stuart [facility] Start: 08-28-2022 Telephone encounter Stuart PEPPER [facility] Start: 08-28-2022 End: 08-28-[address] STUART ZAMORA [facility] Other Start: 08-26-2022 End: 08-26-[address] STUART ZAMORA Facility:[facility] Start: 08-21-2022 End: 08-21-2022 ambulatory Stuart Zamora Other [facility] Other Start: 08-21-2022 Telephone encounter Stuart PEPPER [facility] Start: 08-20-2022 End: 08-23-2022 Evaluation and management of inpatient KEVIN [facility] Start: 08-19-2022 End: 08-19-[address] STUART ZAMORA Facility:[facility] Start: 08-17-2022 End: 08-17-[address] STUART ZAMORA Facility:[facility] Start: 08-15-2022 End: 08-15-2022 ambulatory Stuart Zamora Other [facility] Other Start: 08-15-2022 Sbsq nursing facil care/day minor complj 15 min Stuart Zamora [facility] Start: 08-13-2022 End: 08-13-2022 [facility] Start: 08-12-2022 End: 08-13-[address] DOCTOR BOWMAN Facility:[facility] Start: 08-02-2022 End: 08-02-2022 ambulatory Stuart Zamora Other [facility] Other Start: 08-02-2022 Telephone encounter Stuart PEPPER [facility] Start: 07-24-2022 End: 07-24-[address] STUART ZAMORA Facility:[facility] Start: 07-16-2022 End: 07-16-[address] [facility] Start: 07-11-2022 Sbsq nursing facil care/day new problem 25 min [facility] Start: 07-11-2022 End: 07-12-2022 ambulatory TAMMY DOSHI [facility] Other Start: 06-26-2022 End: 06-26-[address] STUART ZAMORA [facility] Other Start: 06-26-2022 Telephone encounter Stuart PEPPER [facility] Start: 06-25-2022 End: 06-25-[address] [facility] Start: 06-24-2022 End: 06-24-2022 ambulatory Stuart Zamora Other [facility] [facility] Other Start: 06-24-2022 Telephone encounter Stuart PEPPRE [facility] Start: 06-23-2022 End: 06-23-2022 ambulatory Stuart Zamora Other [facility] [facility] Other Start: 06-23-2022 Telephone encounter Stuart PEPPER [facility] Start: 06-20-2022 Initial nursing facility care/day 35 minutes Stuart Sera [facility] Start: 06-20-2022 End: 06-21-2022 ambulatory TAMMY DOSHI [facility] Other Start: 06-12-2022 End: 06-12-2022 ambulatory Stuart Zamora Other [facility] [facility] Other Start: 06-12-2022 Telephone encounter Stuart PEPPER [facility] Start: 06-07-2022 Evaluation and management of inpatient TAMMY [facility] Start: 06-07-2022 Evaluation and management of inpatient TAMMY [facility] Start: 06-05-2022 Evaluation and management of inpatient TAMMY [facility] Start: 06-04-2022 Evaluation and management of inpatient IVAN GANDHIGWANI [facility] Start: 06-04-2022 End: 06-11-2022 Evaluation and management of inpatient TAMMY DOSHI [facility] Start: 06-04-2022 ambulatory TAMMY DOSHI [facility] Start: 05-21-2022 End: 05-22-2022 ambulatory KEVIN VARELA [facility] Start: 01-21-2022 End: 01-22-2022 ambulatory New Alvarezdellatheodore Facility:[facility] Start: 01-01-2022 End: 01-05-2022 ambulatory New Quiñones Facility:[facility] Start: 12-24-2021 End: 01-05-2022 Evaluation and management of inpatient STUART BALL Facility:[facility] Start: 12-20-2021 End: 12-21-2021 ambulatory WILLIAM Lyman MICHAELHERMILA Facility:[facility] Start: 12-20-2021 End: 12-21-2021 Encounter for other preprocedural examination WILLIAM JULIAN Facility:[facility] Start: 11-02-2021 End: 11-03-2021 ambulatory WILLIAM Lyman MICHAELHERMILA Facility:[facility] Start: 10-20-2021 End: 10-25-2021 Evaluation and management of inpatient STUART BALL Facility:[facility] Start: 09-24-2021 End: 09-24-2021 Evaluation and management of inpatient Kevin Harrising Facility:[facility] Start: 07-19-2021 End: 07-20-2021 ambulatory Kevin Varela Facility:[facility] Start: 07-06-2021 Refill Fernanda love RN [facility] Comment on above: Open wound of right knee, initial encounter (Primary Dx) Start: 07-03-2021 End: 07-07-2021 Orders Only Fernanda Mars RN [facility] Comment on above: Open wound of right knee, initial encounter (Primary Dx) Start: 07-03-2021 End: 07-03-2021 Office outpatient visit 10 minutes Dl Patiño MD Work Phone: [facility] Comment on above: Surgical wound infec tion (Primary Dx); Open wound of right knee, initial encounter Start: 06-21-2021 End: 06-22-2021 ambulatory WILLIAM JULIAN Facility:[facility] Start: 06-06-2021 End: 06-08-2021 Evaluation and management of inpatient STUART ZAMORA Facility:[facility] Start: 05-31-2021 End: 05-31-2021 ambulatory Lotus Drewdot Other [facility] [facility] Other Start: 05-31-2021 Office outpatient vi sit 15 minutes Lotus Maloney [facility] Start: 05-08-2021 End: 05-12-2021 ambulatory DL PATIÑO [facility] Start: 05-08-2021 End: 05-08-2021 Office outpatient visit 15 minutes Dl Patiño MD Work Phone: [facility] Comment on above: Surgical wound infec tion (Primary Dx) Start: 04-12-2021 End: 04-12-2021 ambulatory Marion Olexa Other [facility] [facility] Other Start: 04-12-2021 Telephone encounter Marion Olexa [facility] Start: 04-04-2021 End: 04-04-2021 ambulatory Marion Olexa Other [facility] [facility] Other Start: 04-04-2021 Telephone encounter Marion Olexa [facility] Start: 04-02-2021 End: 04-02-2021 ambulatory Marion Olexa Other [facility] [facility] Other Start: 04-02-2021 Telephone encounter Marion Olexa [facility] Start: 03-29-2021 End: 03-29-2021 ambulatory Marion Olexa Other [facility] [facility] Other Start: 03-29-2021 Office outpatient ne w 30 minutes Marion Olexa [facility] Start: 03-29-2021 Telephone encounter Marion Olexa [facility] Start: 03-20-2021 End: 03-24-2021 ambulatory DL PATIÑO [facility] Start: 03-20-2021 End: 03-20-2021 Office outpatient visit 15 minutes Dl Patiño MD Work Phone: [facility] Comment on above: Surgical wound infec tion (Primary Dx) Start: 01-23-2021 End: 01-27-2021 ambulatory DL PATIÑO [facility] Start: 12-12-2020 End: 12-12-2020 ambulatory DL PATIÑO [facility] Start: 12-12-2020 End: 12-12-2020 Postop follow up visit related to original px Dl Patiño MD Work Phone: [facility] Comment on above: Surgical wound infec tion (Primary Dx) Start: 12-07-2020 End: 12-07-2020 ambulatory DL PATIÑO [facility] Start: 12-07-2020 End: 12-07-2020 Follow-up encounter Dl Patiño MD Work Phone: [facility] Comment on above: Surgical wound infec tion (Primary Dx) Start: 11-30-2020 End: 11-30-2020 ambulatory DL PATIÑO [facility] Start: 11-30-2020 End: 11-30-2020 Follow-up encounter Dl Patiño MD Work Phone: [facility] Comment on above: Surgical wound infec tion (Primary Dx) Start: 11-09-2020 End: 11-29-2020 Evaluation and management of inpatient STUART ZAMORA [facility] Start: 11-09-2020 End: 11-09-2020 ambulatory DL PATIÑO [facility] Start: 11-09-2020 End: 11-29-2020 Evaluation and management of inpatient Amelie Baeza DO Work Phone: [facility] Start: 11-09-2020 End: 11-09-2020 Office outpatient new 30 minutes Dl Patiño MD Work Phone: [facility] Comment on above: Open wound of right knee, initial encounter Start: 03-27-2017 End: 03-28-2017 Ambulatory Khari Walton [place] Start: 03-13-2017 End: 03-14-2017 Ambulatory Khari [place] [place]: 03-12-2017 End: 03-12-2017 Emergency department patient visit [id number] SITA ZAMORA [place] Start: 02-12-2017 End: 02-13-2017 Ambulatory Ryan Harrell [place] Start: 01-17-2017 End: 01-20-2017 Evaluation and management of inpatient Ivory García [place] Start: 11-06-2016 End: 11-08-2016 Ambulatory LENIN MART[facility] Procedures Date Procedure Procedure Detail Performing Clinician Start: 10-28-2022 Plain X-ray of bilat eral hands DO Stuart Zamora Work Phone: Start: 10-28-2022 Plain X-ray of bilat eral wrists DO Stuart Zamora Work Phone: Start: 07-11-2022 Follow-up visit ANDRE DARLENE Start: 06-20-2022 Follow-up visit ANDRE DARLENE Start: 06-04-2022 Follow-up visit ANDRE DARLENE Start: 12-30-2021 Antibody screen WILLIAM JULIAN Comment on above: Performed By: #### 6 [id number] ####[address] Start: 10-23-2021 Antibody screen WILLIAM JULIAN Comment on above: Performed By: #### 6 [id number] ####[address], [place] [address] Start: 09-24-2021 Antibody screen WILLIAM JULIAN Comment on above: Performed By: #### 6 [id number] ####[address] [place] [address], [facility] Start: 07-03-2021 Cul bact xcpt urine blood/stool aerobic isol Dl Patiño MD Work Phone: Start: 06-06-2021 Antibody screen WILLIAM JULIAN Comment on above: Performed By: #### 6 [id number] ####[facility] [place] [address], [facility] Start: 11-28-2020 SARS-CoV-2 (COVID-19 ) RdRp gene [Presence] in Respiratory specimen by VITO with probe detection Corina Hanson [facility] Work Phone: Start: 11-28-2020 Adult depression scr eening assessment Dl Patiño MD Work Phone: Start: 11-24-2020 Basic metabolic pane l calcium total Kendra Kirstin Ingram DO Work Phone: Start: 11-23-2020 Electrocardiogram Provi charleen Not In System Start: 11-23-2020 Basic metabolic pane l calcium total Kendra Kirstin Ingram DO Work Phone: Start: 11-22-2020 End: 11-22-2020 DRESSING CHANGE Dl Lyman Work Phone: Start: 11-22-2020 Basic metabolic pane l calcium total Kendra Kirstin Ingram DO Work Phone: Start: 11-22-2020 Blood typing serologic abo Doris Roberts [employer] Work Phone: Start: 11-21-2020 Basic metabolic pane l calcium total Kendra Ingram DO Work Phone: Start: 11-20-2020 Dup-scan xtr veins unilateral/limited study Kendra Kirstin Ingram DO Work Phone: Start: 11-20-2020 Basic metabolic pane l calcium total Kendra Kirstin Ingram DO Work Phone: Start: 11-19-2020 Basic metabolic pane l calcium total Kendra Kirstin Ingram DO Work Phone: Start: 11-18-2020 Basic metabolic pane l calcium total Kendra Kirstin Ingram DO Work Phone: Start: 11-17-2020 Blood count hematocrit Mele Mcclure DO Work Phone: Start: 11-17-2020 Prothrombin time Dl Patiño MD Work Phone: Start: 11-17-2020 Packed RBC preparation Oscar Morales MD Work Phone: Start: 11-17-2020 Sodium serum plasma or whole blood Generic [facility] Work Phone: Start: 11-17-2020 Cul bact xcpt urine blood/stool aerobic isol Dl Patiño MD Work Phone: Start: 11-17-2020 End: 11-17-2020 FLAP ROTATION GASTROCNEMIUS Dl Patiño MD Work Phone: Start: 11-17-2020 Basic metabolic pane l calcium total Kendra Kirstin Ingram DO Work Phone: Start: 11-17-2020 Blood typing serologic abo Doris Roberts [employer] Work Phone: Start: 11-16-2020 Basic metabolic pane l calcium total Kendra Kirstin Ingram DO Work Phone: Start: 11-15-2020 Ct thorax w/o contra st material Kendra Kirstin Ingram DO Work Phone: Start: 11-15-2020 Basic metabolic pane l calcium total Kendra Kirstin Ingram DO Work Phone: Start: 11-14-2020 Basic metabolic pane l calcium total Nicky Gatz PA-C Work Phone: Start: 11-13-2020 Whole blood clotting time procedure Generic [facility] Work Phone: Start: 11-13-2020 Whole blood clotting time procedure Generic [facility] Work Phone: Start: 11-13-2020 Basic metabolic pane l calcium total Nicky Gatz PA-C Work Phone: Start: 06-21-2021 XR OR ANG ADD Percy Yanez MD Work Phone: Start: 11-13-2020 End: 11-13-2020 AORTOGRAM WITH RUNOFFS POSSIBLE INTERVENTION Percy Yanez MD Work Phone: Start: 9 End: 11-13-2020 Ecg routine ecg w/least 12 lds trcg only w/o i&r Love Vera [employer] Work Phone: Start: 11-13-2020 Basic metabolic pane l calcium total Jonathan Hernandezter Geller DO Work Phone: Start: 11-12-2020 Glucose measurement [facility] Work Phone: Start: 11-12-2020 Blood typing serologic abo Christina Cadena PA-C Work Phone: Start: 11-12-2020 Basic metabolic pane l calcium total Christina Cadena PA-C Work Phone: Start: 11-12-2020 Glucose measurement [facility] Work Phone: Start: 11-11-2020 Radiologic exam ches t single view Jonathan Ramos Geller DO Work Phone: Start: 11-11-2020 Bone marrow imaging limited area Amnarda Ogden DPM Work Phone: Start: 11-11-2020 Radionuclide white b lood cell imaging study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 Jul, Mucopurulent chronic bronchitis (ICD-10 - J41.1) Continue abstinence from tobacco products Continue LABA/LAMA CHUY as needed Jul, Seronegative rheumatoid arthritis (ICD-10 - M06.00) Holding biologics due to chronic infection of hip prosthesis Symptoms tolerable Jul, Chronic venous insufficiency (ICD-10 - I87.2) Avoid salt and elevate lower extremities, support stockings, inspect legs and feet daily for blisters and ulcerations. 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, subsequent encounter (ICD-10 - T84.52XD) Completed IV antibiotics x 6 wks Monitor for fever Jul, Other specified hypothyroidism (ICD-10 - E03.8) Jul, Autoimmune thyroiditis (ICD-10 - E06.3) Euthyroid, yearly TSH [facility] Other 03-21-2023 [facility] 08-02-2022 Evaluation note* Encounter Date Diagnosis Assessment Notes Treatment Notes Treatment Clinical Notes Jul, Primary osteoarthritis of left hip (ICD-10 - M16.12) [facility] Other 02-21-2023 [facility] 07-11-2022 Evaluation note* Encounter Date Diagnosis Assessment Notes Treatment Notes Treatment Clinical Notes Jun, Mucopurulent chronic bronchitis (ICD-10 - J41.1) Continue inhalers Jun, Atherosclerosis of diomede artery of both lower extremities with intermittent claudication (ICD-10 - I70.213) Inspect feet daily for cuts. Continue antiplatelet therapy Jun, Chronic venous insufficiency (ICD-10 - I87.2) Avoid salt and elevate lower extremities, support stockings, inspect legs and feet daily for blisters and ulcerations. 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) Euthyroid, TSH yearly Jun, Rheumatoid arthritis with rheumatoid factor of right wrist without organ or systems involvement (ICD-10 - M05.731) Continue to hold immunosuppressant due to intercurrent infection Jun, Rheumatoid arthritis with rheumatoid factor of left wrist without organ or systems involvement (ICD-10 - M05.732) [employer] Other 02-16-2023 [facility] Evaluation note* Encounter Date Diagnosis Assessment Notes Treatment Notes Treatment Clinical Notes Jun, History of revision of total replacement of left hip joint (ICD-10 - Z96.642) [employer] Other 01-31-2023 [facility] 06-24-2022 Evaluation note* Encounter Date Diagnosis Assessment Notes Treatment Notes Treatment Clinical Notes May, History of revision of total replacement of left hip joint (ICD-10 - Z96.642) [employer] Other 01-29-2023 Evaluation note* Encounter Date Diagnosis Assessment Notes Treatment Notes Treatment Clinical Notes May, History of revision of total replacement of left hip joint (ICD-10 - Z96.642) [employer] Other 01-26-2023 Evaluation note* Encounter Date Diagnosis Assessment Notes Treatment Notes Treatment Clinical Notes May, PVD (peripheral vascular disease) (ICD-10 - I73.9) ASA daily, pump legs, activity per surgery May, Mucopurulent chronic bronchitis (ICD-10 - J41.1) Mucinex for cough. CHUY/MARISEL HHN qid. May, Rheumatoid arthritis involving multiple sites with positive rheumatoid factor (ICD-10 - M05.79) In remission, immunosuppressed due to treatment. Monitor for fever, chills and leukocytosis May, Chronic venous insufficiency (ICD-10 - I87.2) Avoid salt and elevate lower extremities, support stockings, inspect legs and feet daily for blisters and ulcerations. May, History of revision of total replacement of left hip joint (ICD-10 - Z96.642) May, Gastroesophageal reflux disease with esophagitis without hemorrhage (ICD-10 - K21.00) May, Mild episode of recurrent major depressive disorder (ICD-10 - F33.0) May, Hx of malignant neoplasm of colon (ICD-10 - Z85.038) [employer] Other 01-26-2023 [facility] Evaluation note* Encounter Date Diagnosis Assessment Notes Treatment Notes Treatment Clinical Notes May, Hip pain (ICD-10 - M25.559) [employer] Other 01-18-2023 [facility] 06-11-2022 [facility]01-17-2023 [facility]Un[facility]01-17-2023 [facility]Un[facility] 06-10-2022 [facility]01-16-2023 NoteUnPro[facility]01-16-2023 NoteSent updates to [facility] ([facility]). Pt did agree to have PICC placed yesterday and also has a woundvac. Awaiting medical readiness, no pre-cert needed.[facility]01-16-2023 [facility]Un[facility]01-15-2023 [facility]01-15-2023 Note [facility]01-14-2023 [facility]01-14-2023 Note [facility]01-14-2023 [facility]01-14-2023 Note [facility]01-[facility]-2023 [facility]01-13-2023 [facility]Un[facility]01-13-2023 Note [facility]01-13-2023 [facility]01-12-2023 [facility]01-12-2023 Note [facility]01-[facility]-2023 [facility]01-11-2023 [facility]01-11-2023 Note [facility]01-[facility]-20[facility]01-10-2023 [facility]08-12-2022 Note#: [id number] I [facility] Pt. Name: Jessica Gonzalez Admitted: 12/24/2021 Discharged: 01/04/2022 Date of : 1945 Physician: Devendra Pritchard MD DISCHARGE SUMMARY Date of discharge, January 05, 2022, discharge delayed as we are waiting for placement, no change in exam when examined on day of discharge, Infectious disease recommendations for changes switching to daptomycin and vancomycin were discontinued so patient will be on Merrem along with daptomycin to complete total of 6 weeks of therapy, PICC line obtained, please see the evaluated for hospice course. PRIMARY CARE PHYSICIAN: Dr. Stuart Zamora. CONSULTING PHYSICIANS: 1. Infectious Disease. 2. Orthopedics. 3. Plastic Surgery. FINAL DIAGNOSES: 1. Sepsis present on admission related to left hip prosthetic joint infection, status post prosthesis removal/hip arthroplasty. 2. 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 She will be on Merrem along with vancomycin for total of 6 weeks. Presently stable for discharge. 3. Asymptomatic COVID, presently afebrile. 4. Chronic obstructive pulmonary disease with acute exacerbation, clinically resolved, off steroids. 5. Acute kidney injury, resolving. 6. Acute on chronic anemia, likely postop operative blood loss, status post transfusion, stable. 7. Sinus tachycardia, resolved. 8. Hypotension, resolved. 9. Chronic diastolic congestive heart failure, clinically compensated. 10. Acquired hypothyroidism, asymptomatic, on Synthroid. HOSPITAL COURSE: This is a pleasant 76-year-old female with past medical history of tobacco dependence along with COPD, not on home oxygen along with other aforementioned comorbidities, who was admitted for left total hip arthroplasty related wound with infection, so the patient was seen by Plastic Surgery, had an I and D done and culture has grown polymicrobial growth. So, the patient was maintained on IV antibiotics. Infectious Disease consultation was sought. The patient developed severe sepsis in the first 24 hours, most likely related to left hip prosthetic joint infection, so the patient was transferred to step-down, started on IV fluids along with broad-spectrum antibiotics and supportive care. The patient culture has grown polymicrobial growth and antibiotics were adjusted and the patient was seen by Orthopedic in consultation and eventually underwent prostatic joint removal with antibiotic spacer as well as hip arthroplasty, which the patient tolerated very well. The patient symptomatically improved. The patient was also being managed for COPD with acute exacerbation with steroids along with frequent nebulization. The patient also developed acute kidney injury, so Lasix was held and eventually will be switched to every other day upon discharge. Overall, the patient is doing well, eventually weaned off from oxygen. The patient was also transfused with PRBC on account of acute on chronic anemia, likely postoperative blood loss present. Hemoglobin is stable. Hemodynamically stable. Infectious Disease recommendations for a total of 6 weeks of antibiotics including Merrem and vancomycin for Corynebacterium as well as Pseudomonas. Presently, the patient is afebrile. Presently, the patient has had understanding that PICC line will cause her to lose weight, so counseling was provided at bedside; now, the patient is in agreement to get the PICC line placed prior to discharge. PHYSICAL EXAMINATION: When examined today: VITAL SIGNS: Hemodynamically stable. NECK: Supple. CARDIOVASCULAR: Regular. ABDOMEN: Positive bowel sounds. EXTREMITIES: No pedal edema. LABORATORY DATA: Reviewed. MEDICATIONS: Per the computer reconciliation list. TIME SPENT: Time spent in coordination of care 35 minutes. Electronically Signed by: Devendra Pritchard MD 01/05/2022 10:50 A Devendra Pritchard MD Date Dict: 01/04/2022/10:35 A/Devendra Pritchard MD Date Trans: 01/04/2022 01:58 P/bladimir DN_JN:[id number] cc: Stuart Zamora D.O. [address] [place] [address] A [facility] [id number]06-01-2022 NoteMR#: [id number] [facility] Pt. Name: Jessica Gonzalez Admitted: 10/19/2021 Discharged: 10/24/2021 Date of : 1945 Physician: Lisset Luo MD DISCHARGE SUMMARY PRIMARY DIAGNOSES: 1. Left hip wound, possible superficial abscess versus prosthetic joint infection, status post superficial I and D with wound VAC danis on 10/23. 2. Chronic obstructive pulmonary disease, not in any exacerbation. 3. Rheumatoid arthritis. 4. Hypothyroidism. 5. Essential hypertension. 6. Depression and anxiety. SUMMARY OF HOSPITAL COURSE: This patient is a 76-year-old female with past medical history noted above, and history of rheumatoid arthritis on methotrexate presented with worsening of her wound. She recently underwent a revision of old left hip prosthesis for dislocation earlier this year and developed a blister covered with an area of necrosis that become infected and partially liquified and she presented for assessment and plan. Infectious Disease and orthopedic were consulted and the patient underwent superficial I and D with wound VAC application. Infectious Disease to start IV antibiotic as the wound was obviously contaminated so no intraoperative cultures were obtained and she was empirically treated with Zosyn and was planned to continue Zosyn for a total of 2 weeks of therapy after discharge. The patient is discharged to follow up with Infectious Disease as well as Orthopedic Clinic after discharge. PHYSICAL EXAMINATION: On day of discharge: GENERAL: Alert, nontoxic, thin-looking female. NECK: Supple. No lymphadenopathy. CHEST: Cough that is intermittent. No rhonchi. HEART: Regular rate and rhythm. ABDOMEN: Soft, nontender, nondistended. EXTREMITIES: Left extremity, 1+ pitting edema. No necrosis. No pus. Covered back with dressing. Left hip wound vacuum in place. DISCHARGE DISPOSITION: Facility DISCHARGE MEDICATIONS: Per reconciliation list. PLAN OF CARE: Continue Zosyn 4.5 mg IV q.8 hours and may be switched to oral antibiotic per ID recommendation in the outpatient settings. Please follow up with Infectious Disease Clinic on November 07. Continue PICC line care as instructed. Wound vacuum to be changed every 48 hours; her first change scheduled on , 11/12. The patient will follow up with Orthopedic Clinic in 10-14 days after discharge. Electronically Signed by: Lisset Luo MD 10/24/2021 02:27 P Lisset Luo MD Date Dict: 10/24/2021/01:51 P/Lisset Luo MD Date Trans: 10/24/2021 02:11 P/bladimir [id number]:[id number] cc: Stuart Zamora D.O. [address] [place] [address], [address] [facility] [id number] Health [facility]field [facility]05-17-2022 NoteMR#: [id number] [facility] Pt. Name: Jessica Gonzalez Admitted: 09/24/2021 Discharged: 09/24/2021 Date of : 1945 Physician: Kevin Varela M.D. DISCHARGE SUMMARY DISCHARGING PHYSICIAN: Kevin Varela M.D. PRINCIPAL DIAGNOSIS: Left total hip arthroplasty dislocation and left total hip arthroplasty pain associated with prosthesis. PROCEDURE PERFORMED AND TREATMENT RENDERED: Left total hip arthroplasty revision. The patient underwent the surgery, which was successfully performed. She was transferred to the PACU and then the floor. The patient worked with Physical therapy at the same day, she met all appropriate immobilization milestones, to be discharged home safely. She was placed on appropriate DVT prophylaxis, Eliquis as well as given 2 days of perioperative antibiotic treatment with Keflex. She was discharged home with oral pain control medication after meeting all these milestones appropriately. She will follow up with Dr. Varela in 2 weeks for wound evaluation at that time. Electronically Signed by: Kevin Varela M.D. 10/14/2021 09:01 A Kevin Varela M.D. I have reviewed this discharge summary and confirmed the resident's documentation. Please note that there may be additional documentation from [place] Date Dict: 10/08/2021/12:32 P/Angel Morales MD Date Trans: 10/09/2021 11:02 A/bladimir BONDS:[id number] cc: Stuart Zamora D.O. [address] [place] [address], [address] [facility] [id number] Health Fairfield Hospital02-11-2022 Miscellaneous Notes* Telephone Encounter - Fernanda Mars RN - 07/06/2021 8:36 AM EST ----- Message from Dl Patiño MD sent at 07/05/2021 9:16 AM EST ----- Call in Pen Vee 500 mg po qid x 10 days documented in this [id number] History of Present illness Narrative* Dl Patiño MD - 07/03/2021 1:41 PM EST Images from the original note were not included. OFFICE NOTE Patient Name: Jessica Gonzalez MR #: [id number] : 1945 Referring Physician: No ref. provider found Physicians: Stuart Zamora DO (Family); Assessment and Plan: I previously ordered an ultrasound of her leg. She apparently has a vascular surgeon she works withup in [place] and has yet to perform this. I have offered her an ultrasound here. She has refused. In the interim, we are going to continue with bacitracin ointment dressings and Adaptic to the posterior calf on a b.i.d. basis. She feels it is closing in slowly. She wants to return to see me on anas needed basis. Chief Complaint/Reason for Visit: open wound right leg History of Present Illness: This is a 75-year-old lady with a peripheral vascular disease and COPD, who presented with an exposed tibial region on the right side following attempt at flap reconstruction at an other institution.Ultimately, we found that she had significant peripheral vascular disease. She underwent stenting by Dr. Yanez. Ultimately, a medial gastroc flap was performed for closure over her bone. She returns today for followup. On inspection today, she has an open wound on the posterior aspect of her calf thatis slightly smaller than it was at her last visit. History: Past Medical History: Diagnosis Date Cancer (HCC) colon COPD (chronic obstructive pulmonary disease) (HCC) PAD (peripheral artery disease) (HCC) Pituitary abnormality (HCC) Rheumatoid aortitis Past Surgical History: Procedure Laterality Date AORTOGRAM WITH RUNOFFS POSSIBLE INTERVENTION Bilateral 11/13/2020 Procedure: AORTOGRAM BILATERAL LOWER EXTREMITY ANGIOGRAM WITH RUNOFFS POSSIBLE INTERVENTION AND OTHER PROCEDURES INDICATED; Surgeon: Percy Yanez MD; Location: [facility] Main OR; Service: Gen-Vascular DRESSING CHANGE EXTREMITY Right 11/22/2020 Procedure: RIGHT LOWER EXTREMITY DRESSING CHANGE; Surgeon: Dl Patiño MD; Location: [facility] Main OR; Service: Plastics FLAP ROTATION GASTROC NEMIUS N/A 11/17/2020 Procedure: MEDIAL GASTROC FLAP WITH RIGHT LEG SKIN GRAFT; Surgeon: Dl Patiño MD; Location: [facility] Main OR; Service: Plastics JOINT REPLACEMENT ORTHOPEDIC SURGERY right knee, left hip No family history on file. Social History Socioeconomic History Marital status: Single Tobacco Use Smoking status: Current Every Day Smoker Packs/day: 0.10 Smokeless tobacco: Never Used Tobacco comment: 5-6 cigarettes a day Substance and Sexual Activity Alcohol use: Never Drug use: Never Allergy Information: I have reviewed the patient's allergies. Patient has no known allergies. Home Medications: Home Medication Instructions Prior to Surgery Accurate as of May 08, 2021 12:08 PM. Always use your most recent med list. Take last dose on Take the morning of surgery Comment(s) albuterol 90 mcg/actuation inhaler Inhale 2 puffs every 6 (six) hours as needed for wheezing . ascorbic acid with ambar hips 500 MG tablet Generic drug: ascorbic acid (vitamin C) Take 500 mg by mouth daily . atorvastatin 20 MG tablet Take 1 (one) tablet (20 mg total) by mouth nightly . Commonly known as: LIPITOR bacitracin zinc-polymyxin B ointment Apply 1 application topically 2 (two) times a day . Bevespi Aerosphere 9-4.8 mcg Hfaa Generic drug: glycopyrrolate-formoteroL Inhale 2 puffs 2 (two) times a day . budesonide-formoteroL 160-4.5 mcg/actuation inhaler Inhale 2 (two) puffs 2 (two) times a day . Commonly known as: SYMBICORT buPROPion 150 MG 12 hr tablet Take 150 mg by mouth 2 (two) times a day . Commonly known as: WELLBUTRIN SR, ZYBAN cholecalciferol (vitamin D3) 1,000 unit tablet Take 1,000 Units by mouth daily . clopidogreL 75 mg tablet Take 1 (one) tablet (75 mg total) by mouth daily . Commonly known as: PLAVIX cyanocobalamin 100 MCG tablet Take 100 mcg by mouth daily . Commonly known as: B-12 famotidine 20 MG tablet Take 1 (one) tablet (20 mg total) by mouth nightly . Commonly known as: PEPCID folic acid 1 MG tablet Take 1 mg by mouth daily . Commonly known as: FOLVITE leflunomide 20 MG tablet Take 20 mg by mouth every other day . Commonly known as: ARAVA melatonin 5 mg Tab Take 1 (one) tablet (5 mg total) by mouth nightly as needed (Sleep) . methotrexate 2.5 MG tablet Take 10 mg by mouth once a week On friday . Commonly known as: TREXALL rivaroxaban 20 mg Tab Take 20 mg by mouth every evening . Commonly known as: XARELTO Review of Systems: Review of Systems Constitutional: Negative for activity change, appetite change, chills, diaphoresis, fatigue, fever and unexpected weight change. HENT: Negative for congestion, dental problem, drooling, ear discharge, ear pain, facial swelling, hearing loss, mouth sores, nosebleeds, postnasal drip, rhinorrhea, sinus pressure, sneezing, sore throat, tinnitus, trouble swallowing and voice change. Eyes: Negative for photophobia, pain, discharge, redness, itching and visual disturbance. Respiratory: Positive for shortness of breath and wheezing. Negative for apnea, cough, choking, chest tightness and stridor. Cardiovascular: Negative for chest pain, palpitations and leg swelling. PVD Gastrointestinal: Negative for abdominal distention, abdominal pain, anal bleeding, blood in stool,constipation, diarrhea, nausea and rectal pain. Endocrine: Negative for cold intolerance, heat intolerance, polydipsia, polyphagia and polyuria. Genitourinary: Negative for decreased urine volume, difficulty urinating, dysuria, enuresis, flank pain, frequency, genital sores, hematuria and urgency. Colon cancer Musculoskeletal: Positive for arthralgias and gait problem. Negative for back pain, joint swelling,myalgias, neck pain and neck stiffness. Skin: Negative for color change, pallor and rash. Allergic/Immunologic: Negative for environmental allergies, food allergies and immunocompromised state. Neurological: Negative for dizziness, tremors, seizures, syncope, facial asymmetry, speech difficulty, weakness, light-headedness, numbness and headaches. Hematological: Negative for adenopathy. Does not bruise/bleed easily. Psychiatric/Behavioral: Negative for agitation, behavioral problems, confusion, decreased concentration, dysphoric mood, hallucinations and self-injury. The patient is not nervous/anxious and is not hyperactive. Physical Examination: Vital Signs: There were no vitals taken for this visit. Physical Exam Constitutional: Appearance: She is well-developed and well-nourished. HENT: Head: Normocephalic. Right Ear: External ear normal. Left Ear: External ear normal. Nose: Nose normal. Mouth/Throat: Mouth: Oropharynx is clear and moist. Eyes: General: No scleral icterus. Left eye: No discharge. Extraocular Movements: EOM normal. Pupils: Pupils are equal, round, and reactive to light. Neck: Thyroid: No thyromegaly. Vascular: No JVD. Trachea: No tracheal deviation. Cardiovascular: Rate and Rhythm: Normal rate and regular rhythm. Pulses: Intact distal pulses. Heart sounds: Normal heart sounds. No murmur heard. No friction rub. No gallop. Pulmonary: Effort: No respiratory distress. Breath sounds: No wheezing or rales. Chest: Chest wall: No tenderness. Abdominal: General: There is no distension. Palpations: There is no mass. Tenderness: There is no abdominal tenderness. There is no guarding or rebound. Musculoskeletal: General: No tenderness, deformity or edema. Cervical back: Normal range of motion and neck supple. Legs: Lymphadenopathy: Cervical: No cervical adenopathy. Skin: Coloration: Skin is not pale. Findings: No erythema or rash. Neurological: Cranial Nerves: No cranial nerve deficit. Motor: No abnormal muscle tone. Coordination: Coordination normal. Deep Tendon Reflexes: Reflexes normal. Psychiatric: Mood and Affect: Mood and affect normal. Behavior: Behavior normal. Thought Content: Thought content normal. Judgment: Judgment normal. documented in this [id number] NoteMR#: [id number] I [facility] Pt. Name: Jessica Gonzalez Admitted: 06/06/2021 Discharged: 06/08/2021 Date of : 1945 Physician: Kevin Varela M.D. DISCHARGE SUMMARY The patient is a 75-year-old female, who presented to the [facility] ER on 06/06/2021 as a transfer from [facility] for a left periprosthetic hip dislocation. Closed reduction was attempted under conscious sedation at the [place] ER, but was unsuccessful and thus she was transferred here. Unfortunately, closed reduction under conscious sedation was again attempted at the [facility] ER, but was unsuccessful. Thus, the patient was taken to the operating room to next day to be placed under general anesthesia, a closed reduction attempt was again performed by myself and Dr. Varela. In the OR, the patient was successfully closed reduced and abduction pillow was placed directly after the procedure. The patient tolerated that procedure well and was just brought back to her room from [facility] without any issues or complications. The patient recovered very well from that procedure and was able to ambulate very quickly. On postoperative day #1, she did very well with PT/OT and felt very good. I was in agreement with our medical teams and staff taking care of that she was appropriate for discharge directly home. Thus, the patient was discharged directly home on postoperative day #1 with strict posterior hip precautions. Furthermore, we had arranged for the brace company to come to her home and provide her with a soft hip abduction orthosis that she is to wear all times until following up with Dr. Varela in clinic in 10 to 14 days' time. Electronically Signed by: Kevin Varela M.D. 06/14/2021 07:47 P Kevin Varela M.D. I have reviewed this discharge summary and confirmed the resident's documentation. Please note that there may be additional documentation from me. Date Dict: 06/13/2021/02:26 P/Sharla Rae MD Date Trans: 06/14/2021 07:51 A/bladimir [id number] cc: Stuart Zamora D.O. [address] [place] [id number]* Encounter Date Diagnosis Assessment Notes Treatment Notes Treatment Clinical Notes May, Wound of right lower extremity (ICD-10 - S81.801A) This wound is very shallow with presence of nice granulation tissue. Right lower extremity is well-perfused distally. We will continue wound care, wash with warm soap and water daily, pat dry, apply petroleum jelly, and 4 x 4. Keep clean dry and covered. We will contact [facility] to forward information regarding arterial intervention in November 2020 for review. We will also schedule updated ABIs here and have her back to discuss those results along with information that we gather from [facility]. Until then, continue wound care as discussed. Observe for signs or symptoms of infection and report any issues if they arise prior to next scheduled appointment. She verbalizes understanding of all discussion, agrees with plan of care, and denies any additional questions. [employer] Other 12-14-2021 History of Present illness Narrative* Dl Patiño MD - 05/08/2021 12:07 PM EST Images from the original note were not included. OFFICE NOTE Patient Name: Jessica Gonzalez MR #: [id number] : 1945 Referring Physician: No ref. provider found Physicians: Stuart Zamora DO (Family); Assessment and Plan: I previously ordered an ultrasound of her leg. She [place] and has yet to perform this. I have offered her an ultrasound here. She has refused. In the interim, we are going to continue with bacitracin ointment dressings and Adaptic to the posterior calf on a b.i.d. basis. She is to return to see me in the new year. Chief Complaint/Reason for Visit: open wound right leg History of Present Illness: This is a 75-year-old lady with a peripheral vascular disease and COPD, who presented with an exposed tibial region on the right side following attempt at flap reconstruction at an other institution.Ultimately, we found that she had significant peripheral vascular disease. She underwent stenting by Dr. Yanez. Ultimately, a medial gastroc flap was performed for closure over her bone. She returns today for followup. On inspection today, she has an open wound on the posterior aspect of her calf thatis slightly smaller than it was at her last visit. History: Past Medical History: Diagnosis Date Cancer (HCC) colon COPD (chronic obstructive pulmonary disease) (HCC) PAD (peripheral artery disease) ([facility]) Pituitary abnormality (HCC) Rheumatoid aortitis Past Surgical History: Procedure Laterality Date AORTOGRAM WITH RUNOFFS POSSIBLE INTERVENTION Bilateral 11/13/2020 Procedure: AORTOGRAM BILATERAL LOWER EXTREMITY ANGIOGRAM WITH RUNOFFS POSSIBLE INTERVENTION AND OTHER PROCEDURES INDICATED; Surgeon: Percy Yanez MD; Location: [facility] Main OR; Service: Gen-Vascular DRESSING CHANGE EXTREMITY Right 11/22/2020 Procedure: RIGHT LOWER EXTREMITY DRESSING CHANGE; Surgeon: Dl Patiño MD; Location: [facility] Main OR; Service: Plastics FLAP ROTATION GASTROC NEMIUS N/A 11/17/2020 Procedure: MEDIAL GASTROC FLAP WITH RIGHT LEG SKIN GRAFT; Surgeon: Dl Patiño MD; Location: [facility] Main OR; Service: Plastics JOINT REPLACEMENT ORTHOPEDIC SURGERY right knee, left hip No family history on file. Social History Socioeconomic History Marital status: Single Tobacco Use Smoking status: Current Every Day Smoker Packs/day: 0.10 Smokeless tobacco: Never Used Tobacco comment: 5-6 cigarettes a day Substance and Sexual Activity Alcohol use: Never Drug use: Never Allergy Information: I have reviewed the patient's allergies. Patient has no known allergies. Home Medications: Home Medication Instructions Prior to Surgery Accurate as of May 08, 2021 12:08 PM. Always use your most recent med list. Take last dose on Take the morning of surgery Comment(s) albuterol 90 mcg/actuation inhaler Inhale 2 puffs every 6 (six) hours as needed for wheezing . ascorbic acid with ambar hips 500 MG tablet Generic drug: ascorbic acid (vitamin C) Take 500 mg by mouth daily . atorvastatin 20 MG tablet Take 1 (one) tablet (20 mg total) by mouth nightly . Commonly known as: LIPITOR bacitracin zinc-polymyxin B ointment Apply 1 application topically 2 (two) times a day . Bevespi Aerosphere 9-4.8 mcg Hfaa Generic drug: glycopyrrolate-formoteroL Inhale 2 puffs 2 (two) times a day . budesonide-formoteroL 160-4.5 mcg/actuation inhaler Inhale 2 (two) puffs 2 (two) times a day . Commonly known as: SYMBICORT buPROPion 150 MG 12 hr tablet Take 150 mg by mouth 2 (two) times a day . Commonly known as: WELLBUTRIN SR, ZYBAN cholecalciferol (vitamin D3) 1,000 unit tablet Take 1,000 Units by mouth daily . clopidogreL 75 mg tablet Take 1 (one) tablet (75 mg total) by mouth daily . Commonly known as: PLAVIX cyanocobalamin 100 MCG tablet Take 100 mcg by mouth daily . Commonly known as: B-12 famotidine 20 MG tablet Take 1 (one) tablet (20 mg total) by mouth nightly . Commonly known as: PEPCID folic acid 1 MG tablet Take 1 mg by mouth daily . Commonly known as: FOLVITE leflunomide 20 MG tablet Take 20 mg by mouth every other day . Commonly known as: ARAVA melatonin 5 mg Tab Take 1 (one) tablet (5 mg total) by mouth nightly as needed (Sleep) . methotrexate 2.5 MG tablet Take 10 mg by mouth once a week On friday . Commonly known as: TREXALL rivaroxaban 20 mg Tab Take 20 mg by mouth every evening . Commonly known as: XARELTO Review of Systems: Review of Systems Constitutional: Negative for activity change, appetite change, chills, diaphoresis, fatigue, fever and unexpected weight change. HENT: Negative for congestion, dental problem, drooling, ear discharge, ear pain, facial swelling, hearing loss, mouth sores, nosebleeds, postnasal drip, rhinorrhea, sinus pressure, sneezing, sore throat, tinnitus, trouble swallowing and voice change. Eyes: Negative for photophobia, pain, discharge, redness, itching and visual disturbance. Respiratory: Positive for shortness of breath and wheezing. Negative for apnea, cough, choking, chest tightness and stridor. Cardiovascular: Negative for chest pain, palpitations and leg swelling. PVD Gastrointestinal: Negative for abdominal distention, abdominal pain, anal bleeding, blood in stool,constipation, diarrhea, nausea and rectal pain. Endocrine: Negative for cold intolerance, heat intolerance, polydipsia, polyphagia and polyuria. Genitourinary: Negative for decreased urine volume, difficulty urinating, dysuria, enuresis, flank pain, frequency, genital sores, hematuria and urgency. Colon cancer Musculoskeletal: Positive for arthralgias and gait problem. Negative for back pain, joint swelling,myalgias, neck pain and neck stiffness. Skin: Negative for color change, pallor and rash. Allergic/Immunologic: Negative for environmental allergies, food allergies and immunocompromised state. Neurological: Negative for dizziness, tremors, seizures, syncope, facial asymmetry, speech difficulty, weakness, light-headedness, numbness and headaches. Hematological: Negative for adenopathy. Does not bruise/bleed easily. Psychiatric/Behavioral: Negative for agitation, behavioral problems, confusion, decreased concentration, dysphoric mood, hallucinations and self-injury. The patient is not nervous/anxious and is not hyperactive. Physical Examination: Vital Signs: There were no vitals taken for this visit. Physical Exam Constitutional: Appearance: She is well-developed and well-nourished. HENT: Head: Normocephalic. Right Ear: External ear normal. Left Ear: External ear normal. Nose: Nose normal. Mouth/Throat: Mouth: Oropharynx is clear and moist. Eyes: General: No scleral icterus. Left eye: No discharge. Extraocular Movements: EOM normal. Pupils: Pupils are equal, round, and reactive to light. Neck: Thyroid: No thyromegaly. Vascular: No JVD. Trachea: No tracheal deviation. Cardiovascular: Rate and Rhythm: Normal rate and regular rhythm. Pulses: Intact distal pulses. Heart sounds: Normal heart sounds. No murmur heard. No friction rub. No gallop. Pulmonary: Effort: No respiratory distress. Breath sounds: No wheezing or rales. Chest: Chest wall: No tenderness. Abdominal: General: There is no distension. Palpations: There is no mass. Tenderness: There is no abdominal tenderness. There is no guarding or rebound. Musculoskeletal: General: No tenderness, deformity or edema. Cervical back: Normal range of motion and neck supple. Legs: Lymphadenopathy: Cervical: No cervical adenopathy. Skin: Coloration: Skin is not pale. Findings: No erythema or rash. Neurological: Cranial Nerves: No cranial nerve deficit. Motor: No abnormal muscle tone. Coordination: Coordination normal. Deep Tendon Reflexes: Reflexes normal. Psychiatric: Mood and Affect: Mood and affect normal. Behavior: Behavior normal. Thought Content: Thought content normal. Judgment: Judgment normal. documented in this [id number] Evaluation note* Encounter Date Diagnosis Assessment Notes Treatment Notes Treatment Clinical Notes Mar, Pain of left femur (ICD-10 - M89.8X5) Mar, Other fracture of left femur, initial encounter for closed fracture (ICD-10 - S72.8X2A) Patient is progressing well from this injury. We discussed the importance of continuing to work on range of motion and strength exercise.Call questions or concerns Seems to be doing very well without pain. At this point we would recommend progressive activity as tolerated. Mar, Presence of left artificial hip joint (ICD-10 - Z96.642) [employer] Other 10-26-2021 History of Present illness Narrative* Dl Patiño MD - 03/20/2021 12:07 PM EDT Images from the original note were not included. OFFICE NOTE Patient Name: Jessica Gonzalez MR #: [id number] : 1945 Referring Physician: No ref. provider found Physicians: Stuart Zamora DO (Family); Assessment and Plan: With her history of peripheral vascular disease, I think the next logical step would be to repeat noninvasive vascular studies. She apparently sees a vascular surgeon up in [place]. I have given renee prescription for this order. In the interim, I would continue with wet-to-wet saline dressings toher leg on a b.i.d. basis. She is to return following her vascular studies. Additionally, this lady is on methotrexate for her arthritis. I would definitely stop this as I am quite sure that it is interfering with her wound healing. Chief Complaint/Reason for Visit: Non healing wound left calf History of Present Illness: Ms. Gonzalez is a 75-year-old lady who I saw following [place] failed lateral gastroc flap to her exposed total knee prosthesis. We performed a vascular analysis of her limb prior to attempt at reconstruction. She had significant peripheral vascular disease when she was seen by Dr. Yanez. He revascularizedher extremity. This was followed by a gastroc muscle flap and skin graft. Her knee prosthesis remains covered; however, her leg donor site has some a dehiscence along the incision and this has been very slow to heal. Her operation was in September and it still has not healed. History: Past Medical History: Diagnosis Date Cancer (HCC) colon COPD (chronic obstructive pulmonary disease) (HCC) PAD (peripheral artery disease) (HCC) Pituitary abnormality (HCC) Rheumatoid aortitis Past Surgical History: Procedure Laterality Date AORTOGRAM WITH RUNOFFS POSSIBLE INTERVENTION Bilateral 11/13/2020 Procedure: AORTOGRAM BILATERAL LOWER EXTREMITY ANGIOGRAM WITH RUNOFFS POSSIBLE INTERVENTION AND OTHER PROCEDURES INDICATED; Surgeon: Percy Yanez MD; Location: [facility] Main OR; Service: Gen-Vascular DRESSING CHANGE EXTREMITY Right 11/22/2020 Procedure: RIGHT LOWER EXTREMITY DRESSING CHANGE; Surgeon: Dl Patiño MD; Location: [facility] Main OR; Service: Plastics FLAP ROTATION GASTROC NEMIUS N/A 11/17/2020 Procedure: MEDIAL GASTROC FLAP WITH RIGHT LEG SKIN GRAFT; Surgeon: Dl Patiño MD; Location: [facility] Main OR; Service: Plastics JOINT REPLACEMENT ORTHOPEDIC SURGERY right knee, left hip No family history on file. Social History Socioeconomic History Marital status: Single Spouse name: Not on file Number of children: Not on file Years of education: Not on file Highest education level: Not on file Occupational History Not on file Tobacco Use Smoking status: Current Every Day Smoker Packs/day: 0.10 Smokeless tobacco: Never Used Tobacco comment: 5-6 cigarettes a day Substance and Sexual Activity Alcohol use: Never Drug use: Never Sexual activity: Not on file Other Topics Concern Not on file Social History Narrative Not on file Social Determinants of Health Financial Resource Strain: Difficulty of Paying Living Expenses: Not on file Food Insecurity: Worried About Running Out of Food in the Last Year: Not on file Ran Out of Food in the Last Year: Not on file Transportation Needs: Lack of Transportation (Medical): Not on file Lack of Transportation (Non-Medical): Not on file Physical Activity: Days of Exercise per Week: Not on file Minutes of Exercise per Session: Not on file Stress: Feeling of Stress : Not on file Social Connections: Frequency of Communication with Friends and Family: Not on file Frequency of Social Gatherings with Friends and Family: Not on file Attends [employer] Services: Not on file Active Member of Clubs or Organizations: Not on file Attends Club or Organization Meetings: Not on file Marital Status: Not on file Housing Stability: Unable to Pay for Housing in the Last Year: Not on file Number of Places Lived in the Last Year: Not on file Unstable Housing in the Last Year: Not on file Allergy Information: I have reviewed the patient's allergies. Patient has no known allergies. Home Medications: Home Medication Instructions Prior to Surgery Accurate as of March 20, 2021 12:07 PM. Always use your most recent med list. Take last dose on Take the morning of surgery Comment(s) albuterol 90 mcg/actuation inhaler Inhale 2 puffs every 6 (six) hours as needed for wheezing . ascorbic acid with ambar hips 500 MG tablet Generic drug: ascorbic acid (vitamin C) Take 500 mg by mouth daily . atorvastatin 20 MG tablet Take 1 (one) tablet (20 mg total) by mouth nightly . Commonly known as: LIPITOR bacitracin zinc-polymyxin B ointment Apply 1 application topically 2 (two) times a day . Bevespi Aerosphere 9-4.8 mcg Hfaa Generic drug: glycopyrrolate-formoteroL Inhale 2 puffs 2 (two) times a day . budesonide-formoteroL 160-4.5 mcg/actuation inhaler Inhale 2 (two) puffs 2 (two) times a day . Commonly known as: SYMBICORT buPROPion 150 MG 12 hr tablet Take 150 mg by mouth 2 (two) times a day . Commonly known as: WELLBUTRIN SR, ZYBAN cholecalciferol (vitamin D3) 1,000 unit tablet Take 1,000 Units by mouth daily . clopidogreL 75 mg tablet Take 1 (one) tablet (75 mg total) by mouth daily . Commonly known as: PLAVIX cyanocobalamin 100 MCG tablet Take 100 mcg by mouth daily . Commonly known as: B-12 famotidine 20 MG tablet Take 1 (one) tablet (20 mg total) by mouth nightly . Commonly known as: PEPCID folic acid 1 MG tablet Take 1 mg by mouth daily . Commonly known as: FOLVITE leflunomide 20 MG tablet Take 20 mg by mouth every other day . Commonly known as: ARAVA melatonin 5 mg Tab Take 1 (one) tablet (5 mg total) by mouth nightly as needed (Sleep) . methotrexate 2.5 MG tablet Take 10 mg by mouth once a week On friday . Commonly known as: TREXALL rivaroxaban 20 mg Tab Take 20 mg by mouth every evening . Commonly known as: XARELTO Review of Systems: Review of Systems Constitutional: Negative for activity change, appetite change, chills, diaphoresis, fatigue, fever and unexpected weight change. HENT: Negative for congestion, dental problem, drooling, ear discharge, ear pain, facial swelling, hearing loss, mouth sores, nosebleeds, postnasal drip, rhinorrhea, sinus pressure, sneezing, sore throat, tinnitus, trouble swallowing and voice change. Eyes: Negative for photophobia, pain, discharge, redness, itching and visual disturbance. Respiratory: Negative for apnea, cough, choking, chest tightness, shortness of breath, wheezing andstridor. Copd Cardiovascular: Negative for chest pain, palpitations and leg swelling. PVD Gastrointestinal: Negative for abdominal distention, abdominal pain, anal bleeding, blood in stool,constipation, diarrhea, nausea and rectal pain. Colon cancer Endocrine: Negative for cold intolerance, heat intolerance, polydipsia, polyphagia and polyuria. Genitourinary: Negative for decreased urine volume, difficulty urinating, dysuria, enuresis, flank pain, frequency, genital sores, hematuria and urgency. Musculoskeletal: Positive for arthralgias and gait problem. Negative for back pain, joint swelling,myalgias, neck pain and neck stiffness. Skin: Negative for color change, pallor and rash. Allergic/Immunologic: Negative for environmental allergies, food allergies and immunocompromised state. Neurological: Negative for dizziness, tremors, seizures, syncope, facial asymmetry, speech difficulty, weakness, light-headedness, numbness and headaches. Hematological: Negative for adenopathy. Does not bruise/bleed easily. Psychiatric/Behavioral: Negative for agitation, behavioral problems, confusion, decreased concentration, dysphoric mood, hallucinations and self-injury. The patient is not nervous/anxious and is not hyperactive. Physical Examination: Vital Signs: There were no vitals taken for this visit. Physical Exam Constitutional: Appearance: She is well-developed. HENT: Head: Normocephalic. Right Ear: External ear normal. Left Ear: External ear normal. Nose: Nose normal. Eyes: General: No scleral icterus. Left eye: No discharge. Pupils: Pupils are equal, round, and reactive to light. Neck: Thyroid: No thyromegaly. Vascular: No JVD. Trachea: No tracheal deviation. Cardiovascular: Rate and Rhythm: Normal rate and regular rhythm. Heart sounds: Normal heart sounds. No murmur heard. No friction rub. No gallop. Pulmonary: Effort: No respiratory distress. Breath sounds: No wheezing or rales. Chest: Chest wall: No tenderness. Abdominal: General: There is no distension. Palpations: There is no mass. Tenderness: There is no abdominal tenderness. There is no guarding or rebound. Musculoskeletal: General: No tenderness or deformity. Cervical back: Normal range of motion and neck supple. Legs: Lymphadenopathy: Cervical: No cervical adenopathy. Skin: Coloration: Skin is not pale. Findings: No erythema or rash. Neurological: Cranial Nerves: No cranial nerve deficit. Motor: No abnormal muscle tone. Coordination: Coordination normal. Deep Tendon Reflexes: Reflexes normal. Psychiatric: Behavior: Behavior normal. Thought Content: Thought content normal. Judgment: Judgment normal. documented in this [id number] History of Present illness Narrative* Dl Patiño MD - 12/12/2020 12:09 PM EDT Ms. Gonzalez returns today following a medial gastroc flap revascularization of her right leg and secondary closure of an open wound on her posterior calf. On inspection today, all the wounds are healing. We are going to remove her final sutures. She is beginning ambulation. I have asked her to return back to see me in 6 weeks' time for followup. documented in this [id number] History of Present illness Narrative* Dl Patiño MD - 12/07/2020 12:32 PM EDT Ms. Gonzalez returns today following medial gastroc flap secondary closure of her posterior calf following exposed total knee prosthesis. She had a previously failed lateral gastroc flap done remotely. She has significant peripheral vascular disease and has been stented. On inspection today, the drainhole is slow to heal, but her incision lines all look fine. We are going to remove her gamaliel fromaround her knee. I would like to remove half of her sutures in the posterior calf this week and theremaining next week. She is to return next week for repeat wound evaluation. documented in this [id number] History of Present illness Narrative* Dl Patiño MD - 11/30/2020 11:03 AM EDT Ms. Gonzalez returns today following revascularization of her right lower extremity and medial gastrocflap closure of her total knee prosthesis. On inspection today, the flap looks fine. I removed her gamaliel around the margin of her gastroc flap as well as all her drains. We are going to leave her posterior calf sutures in for another week. She is to return at that juncture for repeat evaluation. We will discontinue her splint and begin weightbearing. documented in this [id number] History of Present illness Narrative* Narda Lopez RN - 11/29/2020 2:13 PM EDT 1412: Attempted to call report to [place] at . Spoke to cable machine operator who informed this RN that patient is going to [address] [place] [address] unit and transferred this RN to that unit to give report. There was no answer from the [address] [place] [address] nurses' station and the call did not roll back to the cable machine operator. * Taqueria Little MD - 11/29/2020 10:59 AM EDT DAILY PROGRESS NOTE Patient Name: Jessica Gonzalez MR #: [id number] Assessment and Plan: 1. Right total knee replacement with chronic wound and failed flap/skin graft with exposed hardwarewith preop culture Pseudomonas/alcaligenes and now post flap revision. I think she would benefit from antibiotic treatment but the question is whether we can do oral Cipro or whether she needs intravenous treatment. Graft doing well 11/22. We will keep on intravenous cefepime while hospitalized here 2. Peripheral vascular disease post intervention for inflow improvement 3. 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 Rheumatoid arthritis-has been on hydroxychloroquine 5. COPD-currently breathing easy Disposition Comments: We will decide optimal discharge antibiotic regimen and I have had a detailed discussion with her in terms of risk benefit with intravenous antibiotic therapy versus oral Cipro and have reviewed the various side effects and from what I can gather she is leaning towards taking Cipro with monitoring of her tendon status etc.; she will probably also need chronic doxycycline for her left total hip replacement and this can be coordinated with her physicians in [place]. In conclusion if discharged would have her on Cipro 500 mg p.o. twice daily for 3 weeks and she should follow-up with her physicians in [place] in regard to ongoing doxycycline therapy Subjective/Objective: Perpetual Assessment: Jessica Gonzalez is a 75 y.o. female on hospital day 20 with peripheral vascular disease, COPD, rheumatoid arthritis, chronic left total hip replacement infection and right total knee replacement wound. Chief Complaint: Right leg wound HPI: Leg pain stable, discussed antibiotic situation with her again today and she seems fairly firmin her desire for Cipro p.o. and is anxious for discharge today closer to home Review of Systems: The following system(s) were reviewed: Constitutional, GI,Skin Physical Examination: BP 116/67 (BP Location: Left arm, Patient Position: Lying) Pulse 80 Temp 97.5 F (36.4 C) (Oral) Resp 16 Ht 4' 11 Wt 57.6 kg (126 lb 15.8 oz) SpO2 92% BMI 25.65 kg/m General: NAD; Alert Eyes: Conjunctiva and sclera clear Lungs: Clear without rales, rhonchi or wheezes; no increased respiratory effort Cardiovascular: RRR; no edema Abdomen: soft; non tender Extremities: No cyanosis or clubbing, knee postoperative Skin: No rash Neurologic: Follows commands Psych: Mood and affect appropriate Results/Medications Reviewed: Current Facility-Administered Medications Medication Dose Route Frequency Provider Last Rate Last Admin acetaminophen (TYLENOL) tablet 650 mg 650 mg Oral Q4H PRN Nicky Soriano PA-C 650 mg at 11/18/20 0538 ascorbic acid (vitamin C) (VITAMIN C) tablet 500 mg 500 mg Oral Daily Christ Iqbal MD 500 mg at 11/29/20 0829 atorvastatin (LIPITOR) tablet 20 mg 20 mg Oral Nightly Solomon Meade PA-C 20 mg at 11/28/202113 bacitracin zinc-polymyxin B ointment 1 application 1 application Topical BID Lisset Boss [facility],PharmD 1 application at 11/29/20 0500 bisacodyL (DULCOLAX) suppository 10 mg 10 mg Rectal Daily PRN Christ qIbal MD budesonide-formoteroL (SYMBICORT) 160-4.5 mcg/actuation inhaler 2 puff 2 puff Inhalation BID Jonathan Geller DO 2 puff at 11/29/20 0824 buPROPion (WELLBUTRIN SR) 12 hr tablet 150 mg 150 mg Oral BID Christ Iqbal MD 150 mg at 11/29/20 0829 calcium carbonate (TUMS) chewable tablet 500 mg 500 mg Oral Daily PRN Kendra Ingram DO 500 mg at 11/28/20 1517 cefePIMe-dextrose (MAXIPIME) 2 gram/50 mL IVPB 2,000 mg 2,000 mg Intravenous Q12H Jonathan Geller DO 100 mL/hr at 11/29/20 0537 2,000 mg at 11/29/20 0537 cholecalciferol (vitamin D3) tablet 1,000 Units 1,000 Units Oral Daily Christ Iqbal MD 1,000 Units at 11/29/20 0829 clopidogreL (PLAVIX) tablet 75 mg 75 mg Oral Daily Kendra Ingram DO 75 mg at 11/29/20 0829 cyanocobalamin (B-12) tablet 100 mcg 100 mcg Oral Daily Christ Iqbal MD 100 mcg at 11/29/20 0829 famotidine (PEPCID) tablet 20 mg 20 mg Oral Nightly Kendra Ingram DO 20 mg at 11/28/20 2115 folic acid (FOLVITE) tablet 1 mg 1 mg Oral Daily Christ Iqbal MD 1 mg at 11/29/20 0829 guaiFENesin (MUCINEX) 12 hr tablet 600 mg 600 mg Oral Q12H [facility] Kendra Ingram DO 600 mg at 11/29/20 0829 metoprolol (LOPRESSOR) injection 5 mg 5 mg Intravenous Q6H PRN Nicky Soriano PA-C Or hydrALAZINE (APRESOLINE) injection 10 mg 10 mg Intravenous Q6H PRN Nicky Gatz, PA-C HYDROcodone-acetaminophen (NORCO) 5-325 mg per tablet 1 tablet 1 tablet Oral Q4H PRN Corina Hanson CNP 1 tablet at 11/29/20 0936 ipratropium-albuteroL (DUO-NEB) 0.5-2.5 mg/3 ml nebulizer solution 3 mL 3 mL Inhalation 4x daily Jonathan Geller DO 3 mL at 11/29/20 0847 ipratropium-albuteroL (DUO-NEB) 0.5-2.5 mg/3 ml nebulizer solution 3 mL 3 mL Inhalation Q2H PRN Kendra Ingram DO leflunomide (ARAVA) tablet 20 mg 20 mg Oral Every Other Day Corina Hanson CNP melatonin Tab 5 mg 5 mg Oral Nightly PRN Christ Iqbal MD 5 mg at 11/11/202047 [START ON 12/01/2020] methotrexate (TREXALL) tablet 10 mg 10 mg Oral Weekly Corina Hanson CNP naloxone (NARCAN) injection 0.1 mg 0.1 mg Intravenous PRN Nicky Soriano PA-C And naloxone (NARCAN) injection 0.4 mg 0.4 mg Intravenous PRN Nicky Soriano PA-C naloxone (NARCAN) injection 0.1 mg 0.1 mg Intravenous PRN Ann Marie Cooper MD And naloxone (NARCAN) injection 0.4 mg 0.4 mg Intravenous PRN Ann Marie Cooper MD ondansetron (ZOFRAN-ODT) disintegrating tablet 4 mg 4 mg Oral Q6H PRN Christ Iqbal MD 4 mg at 11/20/20 194 Or ondansetron (ZOFRAN) injection 4 mg 4 mg Intravenous Q6H PRN Christ Iqbal MD 4 mg at 11/28/20 1510 rivaroxaban (XARELTO) tablet 20 mg 20 mg Oral Daily Nancy Loza CNP 20 mg at 11/28/20 1720 senna (SENOKOT) tablet 8.6 mg 1 tablet Oral BID PRN Christ Iqbal MD 8.6 mg at 11/24/20 0842 senna-docusate (SENNA-S) 8.6-50 mg per tablet 1 tablet 1 tablet Oral BID Nicky Gatnicole, PA-C 1 tablet at 11/29/20 0828 sodium chloride (PF) (NS) flush 5 mL 5 mL Intravenous PRN Christ Iqbal MD 5 mL at 11/26/20 1449 And sodium chloride (PF) (NS) flush 5 mL 5 mL Intravenous Q8H BRYAN Iqbal MD 5 mL at 535 And sodium chloride 0.9% (NS) 0-150 mL/hr Intravenous PRN Christ Iqbal MD Stopped at 11/12/20 1012 sodium chloride (PF) (NS) flush 5 mL 5 mL Intravenous PRN Nicky Soriano, PA-C 5 mL at 11/15/202024 And sodium chloride (PF) (NS) flush 5 mL 5 mL Intravenous Q8H BRYAN Nicky Soriano, PA-C 5 mL at 11/29/20 0535 And sodium chloride 0.9% (NS) 0-150 mL/hr Intravenous PRN Nicky Soriano, PA-C 10 mL/hr at 11/25/20 1653 10 mL/hr at 11/25/20 1653 traZODone (DESYREL) tablet 50 mg 50 mg Oral Nightly PRN Christ Iqbal MD 50 mg at 11/11/202047 Lab Results Component Value Date WBC 9.10 11/24/2020 HGB 7.8 (L) 11/24/2020 HCT 25.6 (L) 11/24/2020 MCV 95.5 11/24/2020 PLT 433 (H) 11/24/2020 Lab Results Component Value Date GLUCOSE 98 11/24/2020 CALCIUM 8.5 11/24/2020 NA 137 11/24/2020 K 4.0 11/24/2020 CL 103 11/24/2020 BUN 16 11/24/2020 CREATININE 0.76 11/24/2020 Cultures: As noted * Peggy Feliciano - 11/29/2020 10:38 AM EDT HENS completed by [facility] per campus request * Janee Talavera - 11/29/2020 9:45 AM EDT Care Management Progress Note Patient Name: Jessica Gonzalez Working Discharge Plan: D/C Disposition: Care Home Facility Agency/Destination: Other ([facility]) Transportation Plan: Does the patient need discharge transport arranged?: Yes Transportation Type: Ambulance Pending/Established Referrals: Patient has been accepted at [facility]/[place]. Barriers to Discharge/Plan for Follow Up: NARAYAN completed chart review for updates. Patient has tranasport arranged for today 11/29 between 1:30pm-2:30pm. SW faxed updated covid and day of discharge bundle to facility ([phone]). * Corina Hanson CNP - 11/29/2020 7:36 AM EDT [facility] [place] PROGRESS NOTE Jessica Gonzalez a 75 y.o. 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 Non-healing surgical wound Surgical wound infection S/P R TKA in [place] with subsequent ulceration over patella that was managed with lateral gastroc muscle flap and skin graft; still with ulcer in pretibial region; chronically on PO doxy since L hip NF 4 years ago Bone scan (11/11) negative for OM, showed cellulitis Plastics and ID consulted S/P excision of ulcer, debridement of bone from patella and tibial tubercle, flap and STSG (11/17) Wound cx positive for Pseudomonas and Alcaligenes Per ID: Continue cefepime until d/c then plan for Cipro 500mg BID x3 weeks and she should follow-upwith her physicians in [place] in regard to ongoing doxycycline therapy [place] prn for pain control Ok for d/c from plastics standpoint: BID dressing to RLE graft: bacitracin, adaptic, kerlix fluffs,kerlix roll, janelle, splint Follow with plastcs in 1 week for drain removal PT/OT consulted, [facility]- Awaiting SNF, stable for discharge PAD ABIs showing 70-99% stenosis of R SFA and left external iliac and SFA Vascular sx consulted S/P Aortogram and balloon angioplasty of RLE (11/13) Recommend f/u with her vascular surgeon (Dr Dawson Baird in [place]) for LLE angiogram as she does not want to travel to [place] for this Started Plavix and Lipitor Acute Blood loss anemia Hgb ~ 9-10 on admission Decreased to 6.9 in surgery (11/17) due to prolonged bleeding S/P 2U PRBC intraop Hgb has since stablized: hgb 7.8 (11/24) Continue Plavix; resumed home Xarelto (11/26) Transfuse for Hgb < 7 Hx of DVT Unclear when DVT noted as pt does not recall ever being told she had a DVT She was started on Xarelto starter pack (05/2020) per pharmacy review Pt states she had an IVC filter placed (05/2020) prior to surgery that was removed after 8 days (after surgery) per Dr Dawson Baird ([place], [place]) LE doppler of LLE (11/20) negative for DVT Resumed Xarelto (11/26), unclear if pt needs retirement and advised to f/u with Dr Baird to decide if continued anticoagulation is indicated COPD Exacerbation Acute respiratory failure with hypoxia - RESOLVED Not on O2 at baseline; requiring 4L O2 on admission Secondary to COPD exacerbation and pulm vascular congestion CXR (11/11) with mild pulmonary vascular congestion and apparent nodular opacity projecting at the right mid lung CT chest (11/15) with no nodular opacity seen. Trace bilateral pleural effusions. Minimal dependent atelectasis Pt non-compliant with home inhalers Symbicort started Completed 5 day course of Azithro and prednisone Holding home lasix due to hypotension (pt takes for swelling) Duobenbs scheduled and prn IS, pulm toilet - O2 weaned off, stable on RA Restarting lasix for any signs of fluid overload or edema i Abnormal CXR Nodular opacity at R mid lung CT chest (11/15) showed emphysema, no nodules JERICA, resolved Cr 1-1.3 on admission, unclear baseline Cr improved 0.76 (11/24) Lasix held Now resolved RA No flare currently, chronically on methotrexate Methotrexate held, restarted (to start Friday (12/01) Restarted Arava every other day Tobacco abuse Smokes 5 cig daily Pt stated she was done smoking and asked that we throw her cigarettes in the trash; Encouraged continued cessation Pt declines NRT Code Status: Full Code Quality Measures DVT Prophylaxis: Restarted home Xarelto (11/26) Sims Catheter: absent Disposition Discharge Location: SNF Estimated Discharge Date: awaiting transport (arranged for 11/29) Outpatient Testing: F/u with plastics in 1 week Subjective Resting in chair with no concerns. Wondering why she is not on her home arava. No other concerns. No SOB, no wheezing, no sputum production, no chest pain, no abdominal pain. Review of Systems All systems have been reviewed and are negative except as noted in HPI or below Objective BP 116/67 (BP Location: Left arm, Patient Position: Lying) Pulse 80 Temp 97.5 F (36.4 C) (Oral) Resp 16 Ht 4' 11 Wt 57.6 kg (126 lb 15.8 oz) SpO2 92% BMI 25.65 kg/m Physical Examination General Appearance: alert, well appearing, and in no acute distress Cardiovascular: regular rate and rhythm; no murmurs, rubs, clicks or gallops; no peripheral edema Respiratory: lungs clear to auscultation bilaterally, no rhonchi or wheezes; On room air Abdomen: soft, non-tender, non-distended, +BS Neurological: alert, oriented x 3, normal speech; no focal neuro deficits Musculoskeletal: no deformities or joint tenderness Skin: R knee with wound vac in place, MECHE x [address] with serosanguinous drainage Psych: calm, cooperative, normal mood and affect Results/Medications Reviewed 11/29/20 7:36 AM Laboratory, Medications and Transcriptions * Taqueria Little MD - 11/28/2020 3:57 PM EDT DAILY PROGRESS NOTE Patient Name: Jessica Gonzalez MR #: [id number] Assessment and Plan: 1. Right total knee replacement with chronic wound and failed flap/skin graft with exposed hardwarewith preop culture Pseudomonas/alcaligenes and now post flap revision. I think she would benefit from antibiotic treatment but the question is whether we can do oral Cipro or whether she needs intravenous treatment. Graft doing well 11/22. We will keep on intravenous cefepime while hospitalized here 2. Peripheral vascular disease post intervention for inflow improvement 3. 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 Rheumatoid arthritis-has been on hydroxychloroquine 5. COPD-currently breathing easy Disposition Comments: We will decide optimal discharge antibiotic regimen and I have had a detailed discussion with her in terms of risk benefit with intravenous antibiotic therapy versus oral Cipro and have reviewed the various side effects and from what I can gather she is leaning towards taking Cipro with monitoring of her tendon status etc.; she will probably also need chronic doxycycline for her left total hip rep lacement and this can be coordinated with her physicians in [place]. In conclusion if discharged would have her on Cipro 500 mg p.o. twice daily for 3 weeks and she should follow-up with her physicians in [place] in regard to ongoing doxycycline therapy Subjective/Objective: Perpetual Assessment: Jessica Gonzalez is a 75 y.o. female on hospital day 19 with peripheral vascular disease, COPD, rheumatoid arthritis, chronic left total hip replacement infection and right total knee replacement wound. Chief Complaint: Right leg wound HPI: Leg pain stable, discussed antibiotic situation with her again today and she seems fairly firmin her desire for Cipro p.o. and is anxious for discharge Review of Systems: The following system(s) were reviewed: Constitutional, GI,Skin,Respiratory Physical Examination: BP 125/72 (BP Location: Right arm, Patient Position: Lying) Pulse 84 Temp 97.6 F (36.4 C) (Oral) Resp 16 Ht 4' 11 Wt 57.6 kg (126 lb 15.8 oz) SpO2 90% BMI 25.65 kg/m General: NAD; Alert and oriented x3 Eyes: Conjunctiva and sclera clear Lungs: Clear without rales, rhonchi or wheezes; no increased respiratory effort Cardiovascular: RRR; no edema Abdomen: soft; non tender Extremities: No cyanosis or clubbing, knee postoperative Skin: No rash Neurologic: Follows commands Psych: Mood and affect appropriate Results/Medications Reviewed: Current Facility-Administered Medications Medication Dose Route Frequency Provider Last Rate Last Admin acetaminophen (TYLENOL) tablet 650 mg 650 mg Oral Q4H PRN Nicky Soriano PA-C 650 mg at 11/18/20 05 ascorbic acid (vitamin C) (VITAMIN C) tablet 500 mg 500 mg Oral Daily Christ Iqbal MD 500 mg at 11/28/20810 atorvastatin (LIPITOR) tablet 20 mg 20 mg Oral Nightly Solomon Meade PA-C 20 mg at 11/27/202026 bacitracin zinc-polymyxin B ointment 1 application 1 application Topical BID Lisset Boss [facility],PharmD 1 application at 11/28/20 044 bisacodyL (DULCOLAX) suppository 10 mg 10 mg Rectal Daily PRN Christ Iqbal MD budesonide-formoteroL (SYMBICORT) 160-4.5 mcg/actuation inhaler 2 puff 2 puff Inhalation BID Jonathan Geller DO 2 puff at 11/27/202026 buPROPion (WELLBUTRIN SR) 12 hr tablet 150 mg 150 mg Oral BID Christ Iqbal MD 150 mg at 11/28/20810 calcium carbonate (TUMS) chewable tablet 500 mg 500 mg Oral Daily PRN Kendra Ingram DO 500 mg at 11/28/20 151 cefePIMe-dextrose (MAXIPIME) 2 gram/50 mL IVPB 2,000 mg 2,000 mg Intravenous Q12H Jonathan Geller DO 100 mL/hr at 11/28/20438 2,000 mg at 11/28/20 043 cholecalciferol (vitamin D3) tablet 1,000 Units 1,000 Units Oral Daily Christ Iqbal MD 1,000 Units at 11/28/20810 clopidogreL (PLAVIX) tablet 75 mg 75 mg Oral Daily Kendra Ingram DO 75 mg at 11/28/20810 cyanocobalamin (B-12) tablet 100 mcg 100 mcg Oral Daily Christ Iqbal MD 100 mcg at 11/28/20810 famotidine (PEPCID) tablet 20 mg 20 mg Oral Nightly Kendra Ingram DO 20 mg at 11/27/202026 folic acid (FOLVITE) tablet 1 mg 1 mg Oral Daily Christ Iqbal MD 1 mg at 11/28/20 0811 guaiFENesin (MUCINEX) 12 hr tablet 600 mg 600 mg Oral Q12H BRYAN Kendra Ingram DO 600 mg at 11/28/20 0811 metoprolol (LOPRESSOR) injection 5 mg 5 mg Intravenous Q6H PRN Nicky Soriano PA-C Or hydrALAZINE (APRESOLINE) injection 10 mg 10 mg Intravenous Q6H PRN Nicky Soriano PA-C HYDROcodone-acetaminophen (NORCO) 5-325 mg per tablet 1 tablet 1 tablet Oral Q4H PRN Corina Hanson CNP 1 tablet at 11/28/20 1304 ipratropium-albuteroL (DUO-NEB) 0.5-2.5 mg/3 ml nebulizer solution 3 mL 3 mL Inhalation 4x daily Jonathan Geller DO 3 mL at 11/28/20 1501 ipratropium-albuteroL (DUO-NEB) 0.5-2.5 mg/3 ml nebulizer solution 3 mL 3 mL Inhalation Q2H PRN Kendra Ingram DO melatonin Tab 5 mg 5 mg Oral Nightly PRN Christ Iqbal MD 5 mg at 11/11/202047 [START ON 12/01/2020] methotrexate (TREXALL) tablet 10 mg 10 mg Oral Weekly Corina Hanson CNP naloxone (NARCAN) injection 0.1 mg 0.1 mg Intravenous PRN Nicky Soriano PA-C And naloxone (NARCAN) injection 0.4 mg 0.4 mg Intravenous PRN Nicky Soriano PA-C naloxone (NARCAN) injection 0.1 mg 0.1 mg Intravenous PRN Ann Marie Cooper MD And naloxone (NARCAN) injection 0.4 mg 0.4 mg Intravenous PRN Ann Marie Cooper MD ondansetron (ZOFRAN-ODT) disintegrating tablet 4 mg 4 mg Oral Q6H PRN Christ Iqbal MD 4 mg at 11/20/20 1949 Or ondansetron (ZOFRAN) injection 4 mg 4 mg Intravenous Q6H PRN Christ Iqbal MD 4 mg at 11/28/20 1510 rivaroxaban (XARELTO) tablet 20 mg 20 mg Oral Daily Nancy Rain Dago, GUT DROPPER 20 mg at 11/27/20 1748 senna (SENOKOT) tablet 8.6 mg 1 tablet Oral BID PRN Christ Iqbal MD 8.6 mg at 11/24/20 0842 senna-docusate (SENNA-S) 8.6-50 mg per tablet 1 tablet 1 tablet Oral BID Nicky Soriano PA-C 1 tablet at 11/28/20 0811 sodium chloride (PF) (NS) flush 5 mL 5 mL Intravenous PRN Christ Iqbal MD 5 mL at 11/26/20 1449 And sodium chloride (PF) (NS) flush 5 mL 5 mL Intravenous Q8H BRYAN Iqbal MD 5 mL at 326 And sodium chloride 0.9% (NS) 0-150 mL/hr Intravenous PRN Christ Iqbal MD Stopped at 11/12/20 1012 sodium chloride (PF) (NS) flush 5 mL 5 mL Intravenous PRN Nicky Soriano PA-C 5 mL at 11/15/20 202 And sodium chloride (PF) (NS) flush 5 mL 5 mL Intravenous Q8H BRYAN Nicky Soriano PA-C 5 mL at 11/28/20 1306 And sodium chloride 0.9% (NS) 0-150 mL/hr Intravenous PRN Nicky Soriano PA-C 10 mL/hr at 11/25/20 1653 10 mL/hr at 11/25/20 1653 traZODone (DESYREL) tablet 50 mg 50 mg Oral Nightly PRN Christ Iqbal MD 50 mg at 11/11/20 2048 Lab Results Component Value Date WBC 9.10 11/24/2020 HGB 7.8 (L) 11/24/2020 HCT 25.6 (L) 11/24/2020 MCV 95.5 11/24/2020 PLT 433 (H) 11/24/2020 Lab Results Component Value Date GLUCOSE 98 11/24/2020 CALCIUM 8.5 11/24/2020 NA 137 11/24/2020 K 4.0 11/24/2020 CL 103 11/24/2020 BUN 16 11/24/2020 CREATININE 0.76 11/24/2020 Cultures: As noted * Janee Talavera - 11/28/2020 10:09 AM EDT Care Management Progress Note Patient Name: Jessica Gonzalez Working Discharge Plan: D/C Disposition: Care Home Facility Agency/Destination: Other ([facility]) Transportation Plan: Does the patient need discharge transport arranged?: Yes Transportation Type: Auto Pending/Established Referrals: Patient has been accepted at [facility]. Barriers to Discharge/Plan for Follow Up: SW completed chart review for updates. Per previous SW she had attempted to contact patient's brother to see if he would be able to transport patient to facility instead of ambulance since ambulance transport is unable to transport until 11/29 between 1:30pm-2:30pm. SW called and spoke to Alisson who said that he is currently in [place] and will be there until the end of the week. He said that he has spoke to patient about this and she is aware. Patient will need an updated covid before discharge on 11/29. * Corina Hanson CNP - 11/28/2020 7:28 AM EDT [facility] [place]GR[place] Jessica Gonzalez a 75 y.o. 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 Non-healing surgical wound Surgical wound infection S/P R TKA in [place] with subsequent ulceration over patella that was managed with lateral gastroc muscle flap and skin graft; still with ulcer in pretibial region; chronically on PO doxy since L hip NF 4 years ago Bone scan (11/11) negative for OM, showed cellulitis Plastics and ID consulted S/P excision of ulcer, debridement of bone from patella and tibial tubercle, flap and STSG (11/17) Wound cx positive for Pseudomonas and Alcaligenes Per ID: Continue cefepime until d/c then plan for Cipro 500mg BID x3 weeks and she should follow-upwith her physicians in [place] in regard to ongoing doxycycline therapy [place] prn for pain control Ok for d/c from plastics standpoint: BID dressing to RLE graft: bacitracin, adaptic, kerlix fluffs,kerlix roll, janelle, splint Follow with plastcs in 1 week for drain removal PT/OT consulted, [facility]- Awaiting SNF, stable for discharge PAD ABIs showing 70-99% stenosis of R SFA and left external iliac and SFA Vascular sx consulted S/P Aortogram and balloon angioplasty of RLE (11/13) Recommend f/u with her vascular surgeon (Dr Dawson Baird in [place]) for LLE angiogram as she does not want to travel to [place] for this Started Plavix and Lipitor Acute Blood loss anemia Hgb ~ 9-10 on admission Decreased to 6.9 in surgery (11/17) due to prolonged bleeding S/P 2U PRBC intraop Hgb has since stablized: hgb 7.8 (11/24) Continue Plavix; resumed home Xarelto (11/26) Transfuse for Hgb < 7 Hx of DVT Unclear when DVT noted as pt does not recall ever being told she had a DVT She was started on Xarelto starter pack (05/2020) per pharmacy review Pt states she had an IVC filter placed (05/2020) prior to surgery that was removed after 8 days (after surgery) per Dr Dawson Baird ([place], [place]) LE doppler of LLE (11/20) negative for DVT Resumed Xarelto (11/26), 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 Trace bilateral pleural effusions. Minimal dependent atelectasis Pt non-compliant with home inhalers Symbicort started Completed 5 day course of Azithro and prednisone Holding home lasix due to hypotension (pt takes for swelling) Duobenbs scheduled and prn IS, pulm toilet - O2 weaned off Abnormal CXR Nodular opacity at R mid lung CT chest (11/15) showed emphysema, no nodules JERICA, resolved Cr 1-1.3 on admission, unclear baseline Lasix held Now resolved RA No flare currently, chronically on methotrexate Methotrexate held, restarted Tobacco abuse Smokes 5 cig daily Pt stated she was done smoking and asked that we throw her cigarettes in the trash; Encouraged continued cessation Pt declines NRT Code Status: Full Code Quality Measures DVT Prophylaxis: Restarted home Xarelto (11/26) Sims Catheter: absent Disposition [facility]charge Location: [facility] Estimated Discharge Date: awaiting transport (arranged for 11/29) Outpatient Testing: F/u with plastics in 1 week Subjective Resting in chair with no concerns. Updated about transportation for tomorrow. No chest pain, no SOb, no abdominal pain. Pain controlled. Review of Systems All systems have been reviewed and are negative except as noted in HPI or below Objective BP 103/65 (BP Location: Left arm, Patient Position: Lying) Pulse 80 Temp 98.5 F (36.9 C) (Oral) Resp 16 Ht 4' 11 Wt 57.6 kg (126 lb 15.8 oz) SpO2 92% BMI 25.65 kg/m Physical Examination General Appearance: alert, well appearing, and in no acute distress Cardiovascular: regular rate and rhythm; no murmurs, rubs, clicks or gallops; no peripheral edema Respiratory: lungs clear to auscultation bilaterally, no rhonchi or wheezes; On room air Abdomen: soft, non-tender, non-distended, +BS Neurological: alert, oriented x 3, normal speech; no focal neuro deficits Musculoskeletal: no deformities or joint tenderness Skin: R knee with wound vac in place, MECHE x [address] with serosanguinous drainage Psych: calm, cooperative, normal mood and affect Results/Medications Reviewed 11/28/20 7:28 AM Laboratory, Medications and Transcriptions * Cary Alaniz, PT - 11/28/2020 7:10 AM EDT Physical Therapy PHYSICAL THERAPY TREATMENT NOTE Skilled Therapy Needs After Discharge Anticipate Resolution of Current Assessment Limitations Including: Mechanical Barriers, Pain Are Skilled Therapy Services Needed After Discharge: Yes Intensity of Skilled Therapy: Up to 5 days per week Anticipated Duration of Skilled Therapy: Duration 7 - 10 days DME Recommendation: (Maybe platform WW- TBD after trial with AD) Rehab Potential: Good, For goals Outcomes Measures Prior Function - Basic Mobility Raw Score: 24 Points Prior Function - Basic Mobility % Impaired: 0% AM-PAC Basic Mobility Raw Score: 13 Points AM-PAC Basic Mobility % Impaired: 57.65 Therapy Precautions Orthotic Devices: Yes Lower Extremity: Right (splint) Weight Bearing Status: X RLE: Non Wt bearing General Rehab Precautions: Fall risk Balance Sitting Balance - Static: Independent Sitting Balance - Dynamic: Supervision For: postural alignment, sequencing of movement, trunk control, weight shifting Resulting in: improved activity tolerance, improved awareness, improved balance reactions, improvedmotor control, improved performance, improved safety, improved trunk stability Bed Mobility Supine to Sit: Contact guard assist, Minimal assist Skilled Intervention Provided: visual cues For: LE management, LE positioning, UE management, UE positioning, postural alignment, weight shifting Resulting in: improved activity tolerance, improved functional independence, improved performance, improved safety Additional Treatment Details Pt asked to sit eob to eat her breakfast after PT to continue working on sitting tolerance, posture, and trunk control Home Living Obtained Home Living and PLOF info from: Patient Lives With: Alone Type of Home: House Home Layout: One level, Laundry in basement Steps to enter home: Yes Rails to enter home: 1 rail Number of stairs to enter home: 2 Bathroom Shower/Tub: Tub/shower unit Bathroom Toilet: Standard Bathroom Equipment: Grab bars in shower, Shower chair Bathroom Accessibility: Accessible Mobility Equipment: Cane, Wheeled walker, Rollator Prior Level of Function Receives Help From: Family Level of [place] - Transfers/Ambulation/Mobility: Independent with functional transfers, Independent with household ambulation, Independent with community ambulation Level of [place] - ADLs: Independent Level of [place] - Homemaking: Independent Driving: Patient drives For complete objective data, detailed plan of care and patient education refer to: PT Evaluation flowsheet, PT Evaluation and Treatment flowsheet, PT Treatment flowsheet, patient Plan of Care, Plan of Care progress note, and Patient Education. This note stands as the current Discharge Summary upon patient discharge from the hospital or completion of Physical Therapy Plan of Care. * Taqueria Little MD - 11/27/2020 9:14 AM EDT DAILY PROGRESS NOTE Patient Name: Jessica Gonzalez MR #: [id number] Assessment and Plan: 1. Right total knee replacement with chronic wound and failed flap/skin graft with exposed hardwarewith preop culture Pseudomonas/alcaligenes and now post flap revision. I think she would benefit from antibiotic treatment but the question is whether we can do oral Cipro or whether she needs intravenous treatment. Graft doing well 11/22. We will keep on intravenous cefepime while hospitalized here 2. Peripheral vascular disease post intervention for inflow improvement 3. 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 Rheumatoid arthritis-has been on hydroxychloroquine 5. COPD-currently breathing easy Disposition Comments: We will decide optimal discharge antibiotic regimen and I have had a detailed discussion with her in terms of risk benefit with intravenous antibiotic therapy versus oral Cipro and have reviewed the various side effects and from what I can gather she is leaning towards taking Cipro with monitoring of her tendon status etc.; she will probably also need chronic doxycycline for her left total hip rep lacement and this can be coordinated with her physicians in [place]. In conclusion if discharged would have her on Cipro 500 mg p.o. twice daily for 3 weeks and she should follow-up with her physicians in [place] in regard to ongoing doxycycline therapy Subjective/Objective: Perpetual Assessment: Jessica Gonzalez is a 75 y.o. female on hospital day 18 with peripheral vascular disease, COPD, rheumatoid arthritis, chronic left total hip replacement infection and right total knee replacement wound. Chief Complaint: Right leg wound HPI: Leg pain stable, discussed antibiotic situation with her again and she seems fairly firm in her desire for Cipro p.o. Review of Systems: The following system(s) were reviewed: Constitutional, GI,Skin,Respiratory Physical Examination: BP 123/77 (BP Location: Right arm, Patient Position: Sitting) Pulse 92 Temp 97.9 F (36.6 C) (Oral) Resp 18 Ht 4' 11 Wt 57.6 kg (126 lb 15.8 oz) SpO2 90% BMI 25.65 kg/m General: NAD; Alert and oriented x3 Eyes: Conjunctiva and sclera clear Lungs: Clear without rales, rhonchi or wheezes; no increased respiratory effort Cardiovascular: RRR; no edema Abdomen: soft; non tender Extremities: No cyanosis or clubbing, knee postoperative Skin: No rash Neurologic: Follows commands Psych: Mood and affect appropriate Results/Medications Reviewed: Current Facility-Administered Medications Medication Dose Route Frequency Provider Last Rate Last Admin acetaminophen (TYLENOL) tablet 650 mg 650 mg Oral Q4H PRN PRIYA Shah-C 650 mg at 11/18/20 0538 Or acetaminophen (TYLENOL) solution 650 mg 650 mg Oral Q4H PRN PRIYA Shah-C 650 mg at 11/18/20 0030 Or acetaminophen (TYLENOL) suppository 650 mg 650 mg Rectal Q4H PRN KIRA ShahC ascorbic acid (vitamin C) (VITAMIN C) tablet 500 mg 500 mg Oral Daily Christ Iqbal MD 500 mg at 11/27/20 0828 atorvastatin (LIPITOR) tablet 20 mg 20 mg Oral Nightly Solomon Meade PA-C 20 mg at 11/26/202051 bacitracin zinc-polymyxin B ointment 1 application 1 application Topical BID Lisset Boss [facility],PharmD 1 application at 11/27/20 0459 bisacodyL (DULCOLAX) suppository 10 mg 10 mg Rectal Daily PRN Christ Iqbal MD budesonide-formoteroL (SYMBICORT) 160-4.5 mcg/actuation inhaler 2 puff 2 puff Inhalation BID Jonathan Geller DO 2 puff at 11/27/20 0828 buPROPion (WELLBUTRIN SR) 12 hr tablet 150 mg 150 mg Oral BID Christ Iqbal MD 150 mg at 11/27/20 0832 calcium carbonate (TUMS) chewable tablet 500 mg 500 mg Oral Daily PRN Kendra Ingram DO 500 mg at 11/21/20 1002 cefePIMe-dextrose (MAXIPIME) 2 gram/50 mL IVPB 2,000 mg 2,000 mg Intravenous Q12H Jonathan Geller DO Stopped at 11/27/20 0547 cholecalciferol (vitamin D3) tablet 1,000 Units 1,000 Units Oral Daily Christ Iqbal MD 1,000 Units at 11/27/20827 clopidogreL (PLAVIX) tablet 75 mg 75 mg Oral Daily Kendra Ingram DO 75 mg at 11/27/20827 cyanocobalamin (B-12) tablet 100 mcg 100 mcg Oral Daily Christ Iqbal MD 100 mcg at 11/27/20827 famotidine (PEPCID) tablet 20 mg 20 mg Oral Nightly Kendra Ingram DO 20 mg at 11/26/202051 folic acid (FOLVITE) tablet 1 mg 1 mg Oral Daily Christ Iqbal MD 1 mg at 11/27/20827 guaiFENesin (MUCINEX) 12 hr tablet 600 mg 600 mg Oral Q12H BRYAN Kendra Ingram DO 600 mg at 11/27/20827 metoprolol (LOPRESSOR) injection 5 mg 5 mg Intravenous Q6H PRN Nicky Soriano PA-C Or hydrALAZINE (APRESOLINE) injection 10 mg 10 mg Intravenous Q6H PRN Nicky Soriano PA-C HYDROcodone-acetaminophen (NORCO) 5-325 mg per tablet 1-2 tablet 1-2 tablet Oral Q4H PRN Nicky Soriano PA-C 2 tablet at 11/27/20 09 ipratropium-albuteroL (DUO-NEB) 0.5-2.5 mg/3 ml nebulizer solution 3 mL 3 mL Inhalation 4x daily Jonathan Geller DO 3 mL at 11/26/201999 ipratropium-albuteroL (DUO-NEB) 0.5-2.5 mg/3 ml nebulizer solution 3 mL 3 mL Inhalation Q2H PRN Kendra Ingram DO melatonin Tab 5 mg 5 mg Oral Nightly PRN Christ Iqbal MD 5 mg at 11/11/202047 methotrexate (TREXALL) tablet 10 mg 10 mg Oral Weekly Corina Hanson CNP naloxone (NARCAN) injection 0.1 mg 0.1 mg Intravenous PRN Nicky Soriano PA-C And naloxone (NARCAN) injection 0.4 mg 0.4 mg Intravenous PRN Nicky Soriano PA-C naloxone (NARCAN) injection 0.1 mg 0.1 mg Intravenous PRN Ann Marie Cooper MD And naloxone (NARCAN) injection 0.4 mg 0.4 mg Intravenous PRN Ann Marie Cooper MD ondansetron (ZOFRAN-ODT) disintegrating tablet 4 mg 4 mg Oral Q6H PRN Christ Iqbal MD 4 mg at 11/20/20 1949 Or ondansetron (ZOFRAN) injection 4 mg 4 mg Intravenous Q6H PRN Christ Iqbal MD rivaroxaban (XARELTO) tablet 20 mg 20 mg Oral Daily Nancy Loza, GUT DROPPER 20 mg at 11/26/20 1806 senna (SENOKOT) tablet 8.6 mg 1 tablet Oral BID PRN Christ Iqbal MD 8.6 mg at 11/24/20 0842 senna-docusate (SENNA-S) 8.6-50 mg per tablet 1 tablet 1 tablet Oral BID Nicky Soriano PA-C 1 tablet at 11/27/20 0828 sodium chloride (PF) (NS) flush 5 mL 5 mL Intravenous PRN Christ Iqbal MD 5 mL at 11/26/20 1449 And sodium chloride (PF) (NS) flush 5 mL 5 mL Intravenous Q8H BRYAN Iqbal MD 5 mL at 549 And sodium chloride 0.9% (NS) 0-150 mL/hr Intravenous PRN Christ Iqbal MD Stopped at 11/12/20 1012 sodium chloride (PF) (NS) flush 5 mL 5 mL Intravenous PRN Nicky Soriano PA-C 5 mL at 11/15/20 2025 And sodium chloride (PF) (NS) flush 5 mL 5 mL Intravenous Q8H BRYAN Nicky Soriano PA-C 5 mL at 11/27/20 0500 And sodium chloride 0.9% (NS) 0-150 mL/hr Intravenous PRN Nicky Soriano PA-C 10 mL/hr at 11/25/20 1653 10 mL/hr at 11/25/20 1653 traZODone (DESYREL) tablet 50 mg 50 mg Oral Nightly PRN Christ Iqbal MD 50 mg at 11/11/202047 Lab Results Component Value Date WBC 9.10 11/24/2020 HGB 7.8 (L) 11/24/2020 HCT 25.6 (L) 11/24/2020 MCV 95.5 11/24/2020 PLT 433 (H) 11/24/2020 Lab Results Component Value Date GLUCOSE 98 11/24/2020 CALCIUM 8.5 11/24/2020 NA 137 11/24/2020 K 4.0 11/24/2020 CL 103 11/24/2020 BUN 16 11/24/2020 CREATININE 0.76 11/24/2020 Cultures: As noted * Ambar Dimas, OT - 11/27/2020 7:57 AM EDT Occupational Therapy OCCUPATIONAL THERAPY PROGRESS REPORT Skilled Therapy Needs After Discharge Anticipate Resolution of Current Assessment Limitations Including: Mechanical Barriers, Pain Are Skilled Therapy Services Needed After Discharge: Yes Intensity of Skilled Therapy: Up to 5 days per week Anticipated Duration of Skilled Therapy: Duration 10 - 30 days DME Recommendation: Bedside commode, Wheelchair, Elevating legrests on wheelchair DME Rationale: Equipment required to maintain weight bearing status per physician orders, Wheelchair - mobility limitation cannot be safely resolved with ambulatory aide, Commode - patient confined to single room, Patient's condition prevents him/her from accomplishing ADL without recommended equipment, Patient's condition creates an increased risk of safety hazard without recommended equipment, Patient will require increased level of care without recommended equipment Rehab Potential: Good, For goals Outcomes Measures Prior Function Daily Activity Raw Score: 24 Prior Function Daily Activity % Impaired: 0% AM-PAC Daily Activity Raw Score: 18 AM-PAC Daily Activity % Impaired: 46.65% Activity Tolerance Activity Tolerance: Tolerates 10 - 20 min activity with multiple rests (Self- limiting, limited by need for frequent redirection) Therapy Precautions Orthotic Devices: Yes Lower Extremity: Right (posterior ankle splint ) Weight Bearing Status: X RUE: (can't WB through R wirst d/t old injury - using platform WW) RLE: Non Wt bearing General Rehab Precautions: Fall risk Cognition Overall Cognitive Status: Impaired Arousal/Alertness: Appropriate responses to stimuli Orientation Level: Oriented to person, Oriented to place, Oriented to situation, Disoriented to time, Oriented to time, With cues Executive functioning: Min impairment, Insight, Processing delay, Sequencing, Planning / Organizing Safety Judgment: Decreased awareness of need for assistance, Decreased awareness of need for safety Problem Solving: Assistance required to identify errors made, Assistance required to generate solutions, Assistance required to implement solutions Attention: Attends to quiet environment Comments: No command following deficits noted during session d/t cognition. Pt required frequent verbal encouragement and redirection to initiate tasks. Skilled Intervention Provided: multi-modal cues, patient education For: necessary precautions Resulting In: improved awareness of self/environment (NWB RLE) ADL LE Dressing: Minimal assist, Increased time to complete, Use of adaptive equipment (donning L sock EOB, undergarment EOB/standing) LE Dressing - Skilled Intervention Provided: verbal cues, environmental setup/modification, facilitation, monitored patient's safety & tolerance LE Dressing - For: compensatory strategies, adaptive techniques for lower body ADLs (safety, task progression, side sitting vs figure 4) LE Dressing - Resulting In: improved participation in ADL task, improved performance with ADLs Bed Mobility Rolling: (Pt seated EOB start of session, in chair at end) Functional Transfers Sit to Stand: Moderate assist Bed to Chair Transfers: Minimal assist Sidehand: RUE, platform, wheeled walker Skilled Intervention Provided: verbal cues, tactile cues, visual cues, environmental setup/modification, facilitation, demonstration, patient education, provided step by step instructions, monitoringpatient response with activity For: necessary precautions, LE positioning, compensatory strategies, controlled descent, postural alignment, proper body mechanics, safety during functional task(s) Resulting In: increased initiation/participation in mobility task(s) Additional Treatment Details Pt expressing frustration re: slipperiness of posterior ankle orthosis. Pt educated that orthosis was in place to protect surgical site and decrease risk of foot drop, that orthosis was not meant forWB. Pt required max cues for alternative LE placement to maintain NWB during standing and t/f and max multi modal cues for controlled descent. Home Living Obtained Home Living and PLOF info from: Patient Lives With: Alone Type of Home: House Home Layout: One level, Laundry in basement Steps to enter home: Yes Rails to enter home: 1 rail Number of stairs to enter home: 2 Bathroom Shower/Tub: Tub/shower unit Bathroom Toilet: Standard Bathroom Equipment: Grab bars in shower, Shower chair Bathroom Accessibility: Accessible Mobility Equipment: Cane, Wheeled walker, Rollator Prior Level of Function Receives Help From: Family Level of [place] - Transfers/Ambulation/Mobility: Independent with functional transfers, Independent with household ambulation, Independent with community ambulation Level of [place] - ADLs: Independent Level of [place] - Homemaking: Independent Driving: Patient drives For complete objective data, detailed plan of care and patient education refer to: OT Evaluation flowsheet, OT Evaluation and Treatment flowsheet, OT Treatment flowsheet, patient Plan of Care, Plan of Care progress note, and Patient Education. This note stands as the current Discharge Summary upon patient discharge from the hospital or completion of Occupational Therapy Plan of Care. * Corina Hanson CNP - 11/27/2020 7:47 AM EDT [facility] [place] PROGRESS NOTE Jessica Ozunatz a 75 y.o. 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 Non-healing surgical wound Surgical wound infection S/P R TKA in [place] with subsequent ulceration over patella that was managed with lateral gastroc muscle flap and skin graft; still with ulcer in pretibial region; chronically on PO doxy since L hip NF 4 years ago Bone scan (11/11) negative for OM, showed cellulitis Plastics and ID consulted S/P excision of ulcer, debridement of bone from patella and tibial tubercle, flap and STSG (11/17) Wound cx positive for Pseudomonas and Alcaligenes Per ID: Continue cefepime until d/c then plan for Cipro 500mg BID x3 weeks and she should follow-upwith her physicians in [place] in regard to ongoing doxycycline therapy [place] prn for pain control Ok for d/c from plastics standpoint: BID dressing to RLE graft: bacitracin, adaptic, kerlix fluffs,kerlix roll, janelle, splint Follow with plastcs in 1 week for drain removal PT/OT consulted, [facility]- Awaiting SNF PAD ABIs showing 70-99% stenosis of R SFA and left external iliac and SFA Vascular sx consulted S/P Aortogram and balloon angioplasty of RLE (11/13) Recommend f/u with her vascular surgeon (Dr Dawson Baird in [place]) for LLE angiogram as she does not want to travel to [place] for this Started Plavix and Lipitor Acute Blood loss anemia Hgb ~ 9-10 on admission Decreased to 6.9 in surgery (11/17) due to prolonged bleeding S/P 2U PRBC intraop Hgb has since stablized: hgb 7.8 (11/24) Continue Plavix; resumed home Xarelto (11/26) Transfuse for Hgb < 7 Hx of DVT Unclear when DVT noted as pt does not recall ever being told she had a DVT She was started on Xarelto starter pack (05/2020) per pharmacy review Pt states she had an IVC filter placed (05/2020) prior to surgery that was removed after 8 days (after surgery) per Dr Dawson Baird ([place], [place]) LE doppler of LLE (11/20) negative for DVT Resumed Xarelto (11/26), 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 Trace bilateral pleural effusions. Minimal dependent atelectasis Pt non-compliant with home inhalers Symbicort started Completed 5 day course of Azithro and prednisone Holding home lasix due to hypotension (pt takes for swelling) Duobenbs scheduled and prn IS, pulm toilet - O2 weaned off Abnormal CXR Nodular opacity at R mid lung CT chest (11/15) showed emphysema, no nodules JERICA, resolved Cr 1-1.3 on admission, unclear baseline Lasix held Now resolved RA No flare currently, chronically on methotrexate Methotrexate held, restarted Tobacco abuse Smokes 5 cig daily Pt stated she was done smoking and asked that we throw her cigarettes in the trash; Encouraged continued cessation Pt declines NRT Code Status: Full Code Quality Measures DVT Prophylaxis: Restarted home Xarelto (11/26) Sims Catheter: absent Disposition Discharge Location: SNF Estimated Discharge Date: awaiting transport (arranged for 11/29) Outpatient Testing: F/u with plastics in 1 week Subjective Resting in bed with no acute concerns. Awaiting SNF placement. Pain controlled at this time. Review of Systems All systems have been reviewed and are negative except as noted in HPI or below Objective BP 104/60 (BP Location: Left arm, Patient Position: Lying) Pulse 77 Temp 98.3 F (36.8 C) (Oral) Resp 15 Ht 4' 11 Wt 57.6 kg (126 lb 15.8 oz) SpO2 92% BMI 25.65 kg/m Physical Examination General Appearance: alert, well appearing, and in no acute distress Cardiovascular: regular rate and rhythm; no murmurs, rubs, clicks or gallops; no peripheral edema Respiratory: lungs clear to auscultation bilaterally, no rhonchi or wheezes; On room air Abdomen: soft, non-tender, non-distended, +BS Neurological: alert, oriented x 3, normal speech; no focal neuro deficits Musculoskeletal: no deformities or joint tenderness Skin: R knee with wound vac in place, MECHE x [address] with serosanguinous drainage Psych: calm, cooperative, normal mood and affect Results/Medications Reviewed 11/27/20 7:47 AM Laboratory, Medications and Transcriptions * Taqueria Little MD - 11/26/2020 9:22 AM EDT DAILY PROGRESS NOTE Patient Name: Jessica Gonzalez MR #: [id number] Assessment and Plan: 1. Right total knee replacement with chronic wound and failed flap/skin graft with exposed hardwarewith preop culture Pseudomonas/alcaligenes and now post flap revision. I think she would benefit from antibiotic treatment but the question is whether we can do oral Cipro or whether she needs intravenous treatment. Graft doing well 11/22. We will keep on intravenous cefepime while hospitalized here 2. Peripheral vascular disease post intervention for inflow improvement 3. 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 Rheumatoid arthritis-has been on hydroxychloroquine 5. COPD-currently breathing easy Disposition Comments: We will decide optimal discharge antibiotic regimen and I have had a detailed discussion with her in terms of risk benefit with intravenous antibiotic therapy versus oral Cipro and have reviewed the various side effects and from what I can gather she is leaning towards taking Cipro with monitoring of her tendon status etc.; she will probably also need chronic doxycycline for her left total hip rep lacement and this can be coordinated with her physicians in [place]. In conclusion if discharged would have her on Cipro 500 mg p.o. twice daily for 3 weeks and she should follow-up with her physicians in [place] in regard to ongoing doxycycline therapy Subjective/Objective: Perpetual Assessment: Jessica Gonzalez is a 75 y.o. female on hospital day 17 with peripheral vascular disease, COPD, rheumatoid arthritis, chronic left total hip replacement infection and right total knee replacement wound. Chief Complaint: Right leg wound HPI: Leg pain stable, discussed antibiotic situation with her again Review of Systems: The following system(s) were reviewed: Constitutional, GI,Skin,Respiratory Physical Examination: BP 122/73 (BP Location: Left arm, Patient Position: Lying) Pulse 77 Temp 97.7 F (36.5 C) (Oral) Resp 13 Ht 4' 11 Wt 59 kg (130 lb 1.1 oz) SpO2 91% BMI 26.27 kg/m General: NAD; Alert and oriented x3 Eyes: Conjunctiva and sclera clear Lungs: Clear without rales, rhonchi or wheezes; no increased respiratory effort Cardiovascular: RRR; no edema Abdomen: Positive bowel sounds; soft; non tender Extremities: No cyanosis or clubbing, knee postoperative Skin: No rashes or nodules; normal turgor Neurologic: No focal motor deficits Psych: Mood and affect appropriate Results/Medications Reviewed: Current Facility-Administered Medications Medication Dose Route Frequency Provider Last Rate Last Admin acetaminophen (TYLENOL) tablet 650 mg 650 mg Oral Q4H PRN PRIYA Shah-Frieda 650 mg at 11/18/20 0538 Or acetaminophen (TYLENOL) solution 650 mg 650 mg Oral Q4H PRN Nicky Soriano PA-C 650 mg at 11/18/20 0030 Or acetaminophen (TYLENOL) suppository 650 mg 650 mg Rectal Q4H PRN Nicky Soriano PA-C ascorbic acid (vitamin C) (VITAMIN C) tablet 500 mg 500 mg Oral Daily Christ Iqbal MD 500 mg at 11/25/20827 atorvastatin (LIPITOR) tablet 20 mg 20 mg Oral Nightly Solomon Meade PA-C 20 mg at 11/25/202034 bacitracin zinc-polymyxin B ointment 1 application 1 application Topical BID Lisset Boss [facility],PharmD 1 application at 11/26/20451 bisacodyL (DULCOLAX) suppository 10 mg 10 mg Rectal Daily PRN Christ Iqbal MD budesonide-formoteroL (SYMBICORT) 160-4.5 mcg/actuation inhaler 2 puff 2 puff Inhalation BID Jonathan Geller DO 2 puff at 11/25/202034 buPROPion (WELLBUTRIN SR) 12 hr tablet 150 mg 150 mg Oral BID Christ Iqbal MD 150 mg at 11/25/202034 calcium carbonate (TUMS) chewable tablet 500 mg 500 mg Oral Daily PRN Kendra Ingram DO 500 mg at 11/21/20 1002 cefePIMe-dextrose (MAXIPIME) 2 gram/50 mL IVPB 2,000 mg 2,000 mg Intravenous Q12H Jonathan Geller DO 100 mL/hr at 11/26/2024 2,000 mg at 11/26/20523 cholecalciferol (vitamin D3) tablet 1,000 Units 1,000 Units Oral Daily Christ Iqbal MD 1,000 Units at 11/25/20827 clopidogreL (PLAVIX) tablet 75 mg 75 mg Oral Daily Kendra Ingram DO 75 mg at 11/25/20827 cyanocobalamin (B-12) tablet 100 mcg 100 mcg Oral Daily Christ Iqbal MD 100 mcg at 11/25/20827 enoxaparin (LOVENOX) syringe 30 mg 30 mg Subcutaneous Daily Kendra Ingram DO 30 mg at 11/25/202034 famotidine (PEPCID) tablet 20 mg 20 mg Oral Nightly Kendra Ingram DO 20 mg at 11/25/202034 folic acid (FOLVITE) tablet 1 mg 1 mg Oral Daily Christ Iqbal MD 1 mg at 11/25/2028 guaiFENesin (MUCINEX) 12 hr tablet 600 mg 600 mg Oral Q12H [facility] Kendra Ingram, DO 600 mg at 11/25/202034 metoprolol (LOPRESSOR) injection 5 mg 5 mg Intravenous Q6H PRN Nicky Soriano PA-C Or hydrALAZINE (APRESOLINE) injection 10 mg 10 mg Intravenous Q6H PRN Nicky Soriano PA-C HYDROcodone-acetaminophen (NORCO) 5-325 mg per tablet 1-2 tablet 1-2 tablet Oral Q4H PRN Nicky Soriano PA-C 2 tablet at 11/26/20 0448 ipratropium-albuteroL (DUO-NEB) 0.5-2.5 mg/3 ml nebulizer solution 3 mL 3 mL Inhalation 4x daily Jonathan Geller DO 3 mL at 11/26/20 0724 ipratropium-albuteroL (DUO-NEB) 0.5-2.5 mg/3 ml nebulizer solution 3 mL 3 mL Inhalation Q2H PRN Kendra Ingram, DO melatonin Tab 5 mg 5 mg Oral Nightly PRN Christ Iqbal MD 5 mg at 11/11/202047 naloxone (NARCAN) injection 0.1 mg 0.1 mg Intravenous PRN Nicky Soriano PA-C And naloxone (NARCAN) injection 0.4 mg 0.4 mg Intravenous PRN Nicky Soriano PA-C naloxone (NARCAN) injection 0.1 mg 0.1 mg Intravenous PRN Ann Marie Cooper MD And naloxone (NARCAN) injection 0.4 mg 0.4 mg Intravenous PRN Ann Marie Cooper MD ondansetron (ZOFRAN-ODT) disintegrating tablet 4 mg 4 mg Oral Q6H PRN Christ Iqbal MD 4 mg at 11/20/201948 Or ondansetron (ZOFRAN) injection 4 mg 4 mg Intravenous Q6H PRN Christ Iqbal MD senna (SENOKOT) tablet 8.6 mg 1 tablet Oral BID PRN Christ Iqbal MD 8.6 mg at 11/24/20 0842 senna-docusate (SENNA-S) 8.6-50 mg per tablet 1 tablet 1 tablet Oral BID Nicky Soriano PA-C 1 tablet at 11/25/202034 sodium chloride (PF) (NS) flush 5 mL 5 mL Intravenous PRN Christ Iqbal MD And sodium chloride (PF) (NS) flush 5 mL 5 mL Intravenous Q8H BRYAN Iqbal MD 5 mL at 400 And sodium chloride 0.9% (NS) 0-150 mL/hr Intravenous PRN Christ Iqbal MD Stopped at 11/12/20 1012 sodium chloride (PF) (NS) flush 5 mL 5 mL Intravenous PRN Nicky Soriano PA-C 5 mL at 11/15/202024 And sodium chloride (PF) (NS) flush 5 mL 5 mL Intravenous Q8H BRYAN Nicky Soriano, PA-C 5 mL at 11/26/20 0519 And sodium chloride 0.9% (NS) 0-150 mL/hr Intravenous PRN Nicky Soriano, PA-C 10 mL/hr at 11/25/20 1653 10 mL/hr at 11/25/20 1653 traZODone (DESYREL) tablet 50 mg 50 mg Oral Nightly PRN Christ Iqbal MD 50 mg at 11/11/202047 Lab Results Component Value Date WBC 9.10 11/24/2020 HGB 7.8 (L) 11/24/2020 HCT 25.6 (L) 11/24/2020 MCV 95.5 11/24/2020 PLT 433 (H) 11/24/2020 Lab Results Component Value Date GLUCOSE 98 11/24/2020 CALCIUM 8.5 11/24/2020 NA 137 11/24/2020 K 4.0 11/24/2020 CL 103 11/24/2020 BUN 16 11/24/2020 CREATININE 0.76 11/24/2020 Cultures: As noted * Serenity Arce, JACK MACHINE OPERATOR - 11/26/2020 8:07 AM EDT Physical Therapy PHYSICAL THERAPY TREATMENT NOTE Skilled Therapy Needs After Discharge Anticipate Resolution of Current Assessment Limitations Including: Mechanical Barriers, Pain Are Skilled Therapy Services Needed After Discharge: Yes Intensity of Skilled Therapy: Up to 5 days per week Anticipated Duration of Skilled Therapy: Duration 7 - 10 days DME Recommendation: (Maybe platform [facility]- TBD after trial with AD) Rehab Potential: Good, For goals Outcomes Measures Prior Function - Basic Mobility Raw Score: 24 Points Prior Function - Basic Mobility % Impaired: 0% AM-PAC Basic Mobility Raw Score: 13 Points AM-PAC Basic Mobility % Impaired: 57.65 Activity Tolerance Therapy Precautions Orthotic Devices: Yes Lower Extremity: Right (splint) Weight Bearing Status: X RLE: Non Wt bearing General Rehab Precautions: Fall risk Balance Sat in chair with RLE elevated on footstool. Bed Mobility Supine to Sit: Contact guard assist Sidehand: bedrails Skilled Intervention Provided: verbal cues, tactile cues For: LE management, UE positioning, sequencing of movement Resulting in: improved activity tolerance, improved adherence to precautions, improved performance,improved safety Transfers Sit to Stand: Moderate assist Stand Pivot Transfers: Minimal assist Sidehand: wheeled walker, platform, RUE Skilled Intervention Provided: verbal cues, tactile cues, facilitation, patient education For: LE positioning, UE positioning, fall prevention, necessary precautions, safety during functional tasks, safe use of AD and/or equipment Resulting in: improved activity tolerance, improved adherence to precautions, improved performance,improved safety, increased upright tolerance for functional tasks, decreased assistance required, decreasing fall risk, decreased pain Gait/Locomotion Gait Assistance: (nt, unable to hop) Exercise Additional Treatment Details Home Living Obtained Home Living and PLOF info from: Patient Lives With: Alone Type of Home: House Home Layout: One level, Laundry in basement Steps to enter home: Yes Rails to enter home: 1 rail Number of stairs to enter home: 2 Bathroom Shower/Tub: Tub/shower unit Bathroom Toilet: Standard Bathroom Equipment: Grab bars in shower, Shower chair Bathroom Accessibility: Accessible Mobility Equipment: Cane, Wheeled walker, Rollator Prior Level of Function Receives Help From: Family Level of [place] - Transfers/Ambulation/Mobility: Independent with functional transfers, Independent with household ambulation, Independent with community ambulation Level of [place] - ADLs: Independent Level of [place] - Homemaking: Independent Driving: Patient drives For complete objective data, detailed plan of care and patient education refer to: PT Evaluation flowsheet, PT Evaluation and Treatment flowsheet, PT Treatment flowsheet, patient Plan of Care, Plan of Care progress note, and Patient Education. This note stands as the current Discharge Summary upon patient discharge from the hospital or completion of Physical Therapy Plan of Care. * Nancy Loza, GUT DROPPER - 11/26/2020 6:58 AM EDT [facility] [place] PROGRESS NOTE Assessment and Plan: 75 y.o. 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 Non-healing surgical wound Surgical wound infection S/P R TKA in [place] with subsequent ulceration over patella that was managed with lateral gastroc muscle flap and skin graft; still with ulcer in pretibial region; chronically on PO doxy since L hip NF 4 years ago Bone scan (11/11) negative for OM, showed cellulitis Plastics and ID consulted S/P excision of ulcer, debridement of bone from patella and tibial tubercle, flap and STSG (11/17) Wound cx growing Pseudomonas and Alcaligenes; Wound cx positive for Pseudomonas and Alcaligenes Per ID: Continue cefepime until d/c then plan for Cipro 500mg BID x3 weeks and she should follow-upwith her physicians in [place] in regard to ongoing doxycycline therapy Ok for d/c from plastics standpoint: BID dressing to RLE graft: bacitracin, adaptic, kerlix fluffs,kerlix roll, janelle, splint Follow up in 1 week for drain removal Acute Blood loss anemia Hgb ~ 9-10 on admission Decreased to 6.9 in surgery (11/17) due to prolonged bleeding S/P 2U PRBC intraop Hgb has since stablized: hgb 7/8 (11/24) Continue Plavix; resumed home Xarelto (11/26) Transfuse for Hgb < 7 PAD ABIs showing 70-99% stenosis of R SFA and left external iliac and SFA Vascular sx consulted S/P Aortogram and balloon angioplasty of RLE (11/13) Recommend f/u with her vascular surgeon (Dr Dawson Baird in [place]) for LLE angiogram as she does not want to travel to [place] for this Plavix and Lipitor started Hx of DVT Unclear when DVT noted as pt does not recall ever being told she had a DVT She was started on Xarelto starter pack (05/2020) per pharmacy review Pt states she had an IVC filter placed (05/2020) prior to surgery that was removed after 8 days (after surgery) per Dr Dawson Baird ([place], [place]) LE doppler of LLE (11/20) negative for DVT Resumed Xraelto (11/26), 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 and advised to f/u with Dr Baird to decide if continued anticoagulation is indicated COPD exacerbation Acute respiratory failure with hypoxia - RESOLVED Not on O2 at baseline; requiring 4L O2 on admission Secondary to COPD exacerbation and pulm vascular congestion Pt non-compliant with home inhalers Symbicort started Completed 5 day course of Azithro and prednisone Holding home lasix due to hypotension (pt takes for swelling) Duobenbs scheduled and prn IS, pulm toilet - O2 weaned off Indigestion Started Pepcid PRN Tums Abnormal CXR Nodular opacity at R mid lung CT chest (11/15) showed emphysema, no nodules JERICA, resolved Cr 1-1.3 on admission, unclear baseline Now resolved RA No flare currently, chronically on methotrexate Hold methotrexate for now, may restart at discharge Depression Continue home wellbutrin Tobacco abuse Smokes 5 cig daily Pt stated she was done smoking and asked that we throw her cigarettes in the trash; Encouraged continued cessation Pt declines NRT Code Status: Full Code Quality Measures DVT Prophylaxis: Restarted home Xarelto (11/26) Sims Catheter: absent Disposition Discharge Location: [facility] Estimated Discharge Date: awaiting transport (arranged for 11/29) Outpatient Testing: F/u with plastics in 1 week Subjective Pt sitting in chair. Denies any chest pain, pressure of discomfort. Denies any shortness of breath,cough, or congestion. Denies any abdominal pain, nausea/vomiting. Tolerating PO intake. States she is voiding without issues. Denies bowel dysfunction. States pain to foot/leg controlled. Review of Systems All systems have been reviewed and are negative except as noted in HPI or below Objective BP 104/65 (BP Location: Left arm, Patient Position: Lying) Pulse 73 Temp 97.8 F (36.6 C) (Oral) Resp 16 Ht 4' 11 Wt 59 kg (130 lb 1.1 oz) SpO2 92% BMI 26.27 kg/m Physical Examination General Appearance: alert, well appearing, and in no acute distress Cardiovascular: regular rate and rhythm; no murmurs, rubs, clicks or gallops; no peripheral edema Respiratory: lungs clear to auscultation bilaterally, no rhonchi or wheezes; On room air Abdomen: soft, non-tender, non-distended, +BS Neurological: alert, oriented x 3, normal speech; no focal neuro deficits Musculoskeletal: no deformities or joint tenderness Skin: R knee with wound vac in place, MECHE x [address] with serosanguinous drainage Psych: calm, cooperative, normal mood and affect Results/Medications Reviewed 11/26/20 6:58 AM Laboratory, Radiology, Cardiology, Medications and Transcriptions * Serenity Arce JACK MACHINE OPERATOR - 11/25/2020 9:03 AM EDT Physical Therapy PHYSICAL THERAPY TREATMENT NOTE Skilled Therapy Needs After Discharge Anticipate Resolution of Current Assessment Limitations Including: Mechanical Barriers, Pain Are Skilled Therapy Services Needed After Discharge: Yes Intensity of Skilled Therapy: Up to 5 days per week Anticipated Duration of Skilled Therapy: Duration 7 - 10 days DME Recommendation: (Maybe platform [facility]- TBD after trial with AD) Rehab Potential: Good, For goals Outcomes Measures Prior Function - Basic Mobility Raw Score: 24 Points Prior Function - Basic Mobility % Impaired: 0% AM-PAC Basic Mobility Raw Score: 12 Points AM-PAC Basic Mobility % Impaired: 61.94% Activity Tolerance Therapy Precautions Orthotic Devices: Yes Lower Extremity: Right (splint) Weight Bearing Status: X RLE: Non Wt bearing General Rehab Precautions: Fall risk Balance Patient sat in chair with RLE elevated. Bed Mobility Supine to Sit: Contact guard assist Sidehand: bedrails Skilled Intervention Provided: verbal cues, tactile cues For: LE management, UE positioning, sequencing of movement Resulting in: improved performance, improved safety Transfers Sit to Stand: Moderate assist Stand Pivot Transfers: Moderate assist Sidehand: wheeled walker, platform, RUE Skilled Intervention Provided: verbal cues, tactile cues, facilitation, patient education For: LE management, LE positioning, attention to task, controlled descent, fall prevention, necessary precautions, safety during functional tasks, safe use of AD and/or equipment Resulting in: improved activity tolerance, improved adherence to precautions, improved balance, improved performance, improved safety, increased upright tolerance for functional tasks, decreased assistance required, decreasing fall risk, decreased pain Gait/Locomotion Gait Assistance: (nt) Exercise Additional Treatment Details Home Living Obtained Home Living and PLOF info from: Patient Lives With: Alone Type of Home: House Home Layout: One level, Laundry in basement Steps to enter home: Yes Rails to enter home: 1 rail Number of stairs to enter home: 2 Bathroom Shower/Tub: Tub/shower unit Bathroom Toilet: Standard Bathroom Equipment: Grab bars in shower, Shower chair Bathroom Accessibility: Accessible Mobility Equipment: Cane, Wheeled walker, Rollator Prior Level of Function Receives Help From: Family Level of [place] - Transfers/Ambulation/Mobility: Independent with functional transfers, Independent with household ambulation, Independent with community ambulation Level of [place] - ADLs: Independent Level of [place] - Homemaking: Independent Driving: Patient drives For complete objective data, detailed plan of care and patient education refer to: PT Evaluation flowsheet, PT Evaluation and Treatment flowsheet, PT Treatment flowsheet, patient Plan of Care, Plan of Care progress note, and Patient Education. This note stands as the current Discharge Summary upon patient discharge from the hospital or completion of Physical Therapy Plan of Care. * Taqueria Little MD - 11/25/2020 8:06 AM EDT DAILY PROGRESS NOTE Patient Name: Jessica Gonzalez MR #: [id number] Assessment and Plan: 1. Right total knee replacement with chronic wound and failed flap/skin graft with exposed hardwarewith preop culture Pseudomonas/alcaligenes and now post flap revision. I think she would benefit from antibiotic treatment but the question is whether we can do oral Cipro or whether she needs intravenous treatment. Graft doing well 11/22. We will keep on intravenous cefepime while hospitalized here 2. Peripheral vascular disease post intervention for inflow improvement 3. 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 Rheumatoid arthritis-has been on hydroxychloroquine 5. COPD-currently breathing easy Disposition Comments: We will decide optimal discharge antibiotic regimen and I have had a detailed discussion with her in terms of risk benefit with intravenous antibiotic therapy versus oral Cipro and have reviewed the various side effects and from what I can gather she is leaning towards taking Cipro with monitoring of her tendon status etc.; she will probably also need chronic doxycycline for her left total hip rep lacement and this can be coordinated with her physicians in [place]. In conclusion if discharged would have her on Cipro 500 mg p.o. twice daily for 3 weeks and she should follow-up with her physicians in [place] in regard to ongoing doxycycline therapy Subjective/Objective: Perpetual Assessment: Jessica Gonzalez is a 75 y.o. female on hospital day 16 with peripheral vascular disease, COPD, rheumatoid arthritis, chronic left total hip replacement infection and right total knee replacement wound. Chief Complaint: Right leg wound HPI: Leg pain stable, discussed antibiotic situation with her again Review of Systems: The following system(s) were reviewed: Constitutional, GI,Skin,Respiratory Physical Examination: BP 103/65 (BP Location: Left arm, Patient Position: Lying) Pulse 70 Temp 97.5 F (36.4 C) (Oral) Resp 15 Ht 4' 11 Wt 59 kg (130 lb 1.1 oz) SpO2 96% BMI 26.27 kg/m General: NAD; Alert and oriented x3 Eyes: Conjunctiva and sclera clear Lungs: Clear without rales, rhonchi or wheezes; no increased respiratory effort Cardiovascular: RRR; no edema Abdomen: Positive bowel sounds; soft; non tender Extremities: No cyanosis or clubbing, knee postoperative Skin: No rashes or nodules; normal turgor Neurologic: No focal motor deficits Psych: Mood and affect appropriate Results/Medications Reviewed: Current Facility-Administered Medications Medication Dose Route Frequency Provider Last Rate Last Admin acetaminophen (TYLENOL) tablet 650 mg 650 mg Oral Q4H PRN Nicky Soriano PA-C 650 mg at 11/18/20 0538 Or acetaminophen (TYLENOL) solution 650 mg 650 mg Oral Q4H PRN Nicky Soriano PA-C 650 mg at 11/18/20 0030 Or acetaminophen (TYLENOL) suppository 650 mg 650 mg Rectal Q4H PRN Nicky Soriano PA-C ascorbic acid (vitamin C) (VITAMIN C) tablet 500 mg 500 mg Oral Daily Christ Iqbal MD 500 mg at 11/24/20 08 atorvastatin (LIPITOR) tablet 20 mg 20 mg Oral Nightly Solomon Meade PA-C 20 mg at 11/24/202117 bacitracin zinc-polymyxin B ointment 1 application 1 application Topical BID Lisset Boss [facility],PharmD 1 application at 11/25/20 0529 bisacodyL (DULCOLAX) suppository 10 mg 10 mg Rectal Daily PRN Christ Iqbal MD budesonide-formoteroL (SYMBICORT) 160-4.5 mcg/actuation inhaler 2 puff 2 puff Inhalation BID Jonathan Geller DO 2 puff at 11/24/202116 buPROPion (WELLBUTRIN SR) 12 hr tablet 150 mg 150 mg Oral BID Christ Iqbal MD 150 mg at 11/24/202117 calcium carbonate (TUMS) chewable tablet 500 mg 500 mg Oral Daily PRN Kendra Ingram DO 500 mg at 11/21/20 1002 cefePIMe-dextrose (MAXIPIME) 2 gram/50 mL IVPB 2,000 mg 2,000 mg Intravenous Q12H Jonathan Geller DO 100 mL/hr at 11/25/20 0431 2,000 mg at 11/25/20 0431 cholecalciferol (vitamin D3) tablet 1,000 Units 1,000 Units Oral Daily Christ Iqbal MD 1,000 Units at 11/24/20 08 clopidogreL (PLAVIX) tablet 75 mg 75 mg Oral Daily Kendra Ingram DO 75 mg at 11/24/20841 cyanocobalamin (B-12) tablet 100 mcg 100 mcg Oral Daily Christ Iqbal MD 100 mcg at 11/24/20 08 enoxaparin (LOVENOX) syringe 30 mg 30 mg Subcutaneous Daily Kendra Ingram DO 30 mg at 11/24/202117 famotidine (PEPCID) tablet 20 mg 20 mg Oral Nightly Kendra Ingram, DO 20 mg at 11/24/202122 folic acid (FOLVITE) tablet 1 mg 1 mg Oral Daily Christ Iqbal MD 1 mg at 11/24/20 0842 guaiFENesin (MUCINEX) 12 hr tablet 600 mg 600 mg Oral Q12H BRYAN Kendra Ingram DO 600 mg at 11/24/202117 metoprolol (LOPRESSOR) injection 5 mg 5 mg Intravenous Q6H PRN Nicky Soriano PA-C Or hydrALAZINE (APRESOLINE) injection 10 mg 10 mg Intravenous Q6H PRN Nicky Soriano PA-C HYDROcodone-acetaminophen (NORCO) 5-325 mg per tablet 1-2 tablet 1-2 tablet Oral Q4H PRN Nicky Soriano PA-C 2 tablet at 11/25/20 0519 ipratropium-albuteroL (DUO-NEB) 0.5-2.5 mg/3 ml nebulizer solution 3 mL 3 mL Inhalation 4x daily Jonathan Geller DO 3 mL at 11/25/20 0727 ipratropium-albuteroL (DUO-NEB) 0.5-2.5 mg/3 ml nebulizer solution 3 mL 3 mL Inhalation Q2H PRN Kendra Ingram, DO melatonin Tab 5 mg 5 mg Oral Nightly PRN Christ Iqbal MD 5 mg at 11/11/202047 naloxone (NARCAN) injection 0.1 mg 0.1 mg Intravenous PRN Nicky Soriano PA-C And naloxone (NARCAN) injection 0.4 mg 0.4 mg Intravenous PRN Nicky Soriano PA-C naloxone (NARCAN) injection 0.1 mg 0.1 mg Intravenous PRN Ann Marie Cooper MD And naloxone (NARCAN) injection 0.4 mg 0.4 mg Intravenous PRN Ann Marie Cooper MD ondansetron (ZOFRAN-ODT) disintegrating tablet 4 mg 4 mg Oral Q6H PRN Christ Iqbal MD 4 mg at 11/20/201948 Or ondansetron (ZOFRAN) injection 4 mg 4 mg Intravenous Q6H PRN Christ Iqbal MD senna (SENOKOT) tablet 8.6 mg 1 tablet Oral BID PRN Christ Iqbal MD 8.6 mg at 11/24/20 0842 senna-docusate (SENNA-S) 8.6-50 mg per tablet 1 tablet 1 tablet Oral BID Nickymike Soriano, PA-C 1 tablet at 11/24/202122 sodium chloride (PF) (NS) flush 5 mL 5 mL Intravenous PRN Christ Iqbal MD And sodium chloride (PF) (NS) flush 5 mL 5 mL Intravenous Q8H BRYAN Christ Iqbal MD 5 mL at 400 And sodium chloride 0.9% (NS) 0-150 mL/hr Intravenous PRN Christ Iqbal MD Stopped at 11/12/20 1012 sodium chloride (PF) (NS) flush 5 mL 5 mL Intravenous PRN Nicky Soriano, PA-C 5 mL at 11/15/202024 And sodium chloride (PF) (NS) flush 5 mL 5 mL Intravenous Q8H BRYAN Nicky Gatnicole, PA-C 5 mL at 11/24/202120 And sodium chloride 0.9% (NS) 0-150 mL/hr Intravenous PRN Nicky Gatnicole, PA-C 25 mL/hr at 11/25/20 0430 25 mL/hr at 11/25/20 0430 traZODone (DESYREL) tablet 50 mg 50 mg Oral Nightly PRN Christ Iqbal MD 50 mg at 11/11/202047 Lab Results Component Value Date WBC 9.10 11/24/2020 HGB 7.8 (L) 11/24/2020 HCT 25.6 (L) 11/24/2020 MCV 95.5 11/24/2020 PLT 433 (H) 11/24/2020 Lab Results Component Value Date GLUCOSE 98 11/24/2020 CALCIUM 8.5 11/24/2020 NA 137 11/24/2020 K 4.0 11/24/2020 CL 103 11/24/2020 BUN 16 11/24/2020 CREATININE 0.76 11/24/2020 Cultures: As noted * Nancy Loza, GUT DROPPER - 11/25/2020 6:38 AM EDT [facility] [place]GR[place] Assessment and Plan: 75 y.o. 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 Non-healing surgical wound Surgical wound infection S/P R TKA in [place] with subsequent ulceration over patella that was managed with lateral gastroc muscle flap and skin graft; still with ulcer in pretibial region; chronically on PO doxy since L hip NF 4 years ago Bone scan (11/11) negative for OM, showed cellulitis Plastics and ID consulted S/P OR (11/17) for excision of ulcer, debridement of bone from patella and tibial tubercle, flap andSTSG Wound cx growing Pseudomonas and Alcaligenes; Wound cx positive for Pseudomonas and Alcaligenes, abx changed to cefepime Per ID: plan for Cipro 500mg BID x3 weeks and she should follow-up with her physicians in [facility] to ongoing doxycycline therapy Ok for d/c from plastics standpoint: BID dressing to RLE graft: bacitracin, adaptic, kerlix fluffs,kerlix roll, janelle, splint Follow up in 1 week for drain removal Acute Blood loss anemia Hgb ~ 9-10 on admission Acute drop to 6.9 in surgery (11/17) due to prolonged bleeding S/P 2U PRBC intraop Hgb 8.7 --> 7.9 -->7.2 post transfusion, now stable Continue Plavix and Lovenox. Transfuse for Hgb < 7 PAD ABIs showing 70-99% stenosis of R SFA and left external iliac and SFA Vascular sx consulted S/P Aortogram and balloon angioplasty of RLE (11/13) Plavix and Lipitor started Hx of DVT Unclear when DVT noted, but started on Xarelto starter pack (05/2020) per pharmacy review Pt states she had an IVC filter placed (05/2020) that was removed after 8 days (had for surgery) LE doppler of LLE (6/28) negative for DVT Holding Xarelto currently. 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 COPD exacerbation Acute respiratory failure with hypoxia - RESOLVED Not on O2 at baseline; requiring 4L O2 on admission Secondary to COPD exacerbation and pulm vascular congestion Pt non-compliant with home inhalers Symbicort started Completed 5 day course of Azithro and prednisone Holding home lasix due to hypotension (pt takes for swelling) Duobenbs scheduled and prn IS, pulm toilet - O2 weaned off Indigestion Started Pepcid PRN Tums Abnormal CXR Nodular opacity at R mid lung CT chest (11/15) showed emphysema, no nodules JERICA, resolved Cr 1-1.3 on admission, unclear baseline Now resolved RA No flare currently, chronically on methotrexate Hold methotrexate for now, may restart at discharge Depression Continue home wellbutrin Tobacco abuse Smokes 5 cig daily Pt stated she was done smoking and asked that we throw her cigarettes in the trash; Encouraged continued cessation Pt declines NRT Code Status: Full Code Quality Measures DVT Prophylaxis: Lovenox - will need to transition back to Xarelto Sims Catheter: absent Disposition Discharge Location: [facility] Estimated Discharge Date: awaiting transport (arranged for 11/29) Outpatient Testing: F/u with plastics in 1 week Subjective Pt lying in bed. Denies any chest pain, pressure of discomfort. Denies any shortness of breath, cough, or congestion. Denies any abdominal pain, nausea/vomiting. Tolerating PO intake. States she is voiding without issues. Denies bowel dysfunction. Review of Systems All systems have been reviewed and are negative except as noted in HPI or below Objective BP 101/67 (BP Location: Left arm, Patient Position: Lying) Pulse 67 Temp 97.6 F (36.4 C) (Oral) Resp 16 Ht 4' 11 Wt 59 kg (130 lb 1.1 oz) SpO2 98% BMI 26.27 kg/m Physical Examination General Appearance: alert, well appearing, and in no acute distress Cardiovascular: regular rate and rhythm; no murmurs, rubs, clicks or gallops; no peripheral edema Respiratory: lungs clear to auscultation bilaterally, no rhonchi or wheezes; On room air Abdomen: soft, non-tender, non-distended, +BS Neurological: alert, oriented x 3, normal speech; no focal neuro deficits Musculoskeletal: no deformities or joint tenderness Skin: R knee with wound vac in place, MECHE x [address] with serosanguinous drainage Psych: calm, cooperative, normal mood and affect Results/Medications Reviewed 11/25/20 6:38 AM Laboratory, Radiology, Cardiology, Medications and Transcriptions * Becca Dickey - 11/24/2020 12:14 PM EDT Medical Transportation set up by [facility] per hospital request: Date: 11/29 Time: 1:30-2:30pm Destination: [employer] Company: [email or web address] ([phone]) Special needs/equipment:Oxygen Truck Type: Ambulance Companies called:[email or web address], [employer], [employer] and [facility] Completed: Yes Trip on Will Call: starting Monday 11/27 * Taqueria Little MD - 11/24/2020 10:47 AM EDT DAILY PROGRESS NOTE Patient Name: Jessica Gonzalez MR #: [id number] Assessment and Plan: 1. Right total knee replacement with chronic wound and failed flap/skin graft with exposed hardwarewith preop culture Pseudomonas/alcaligenes and now post flap revision. I think she would benefit from antibiotic treatment but the question is whether we can do oral Cipro or whether she needs intravenous treatment. Graft doing well 11/22. 2. Peripheral vascular disease post intervention for inflow improvement 3. 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 Rheumatoid arthritis-has been on hydroxychloroquine 5. COPD-currently breathing easy Disposition Comments: We will decide optimal discharge antibiotic regimen and I have had a detailed discussion with her in terms of risk benefit with intravenous antibiotic therapy versus oral Cipro and have reviewed the various side effects and from what I can gather she is leaning towards taking Cipro with monitoring of her tendon status etc.; she will probably also need chronic doxycycline for her left total hip rep lacement and this can be coordinated with her physicians in [place]. In conclusion if discharged would have her on Cipro 500 mg p.o. twice daily for 3 weeks and she should follow-up with her physicians in [place] in regard to ongoing doxycycline therapy Subjective/Objective: Perpetual Assessment: Jessica Gonzalez is a 75 y.o. female on hospital day 15 with peripheral vascular disease, COPD, rheumatoid arthritis, chronic left total hip replacement infection and right total knee replacement wound. Chief Complaint: Right leg wound HPI: Leg pain stable, discussed antibiotic situation with her again Review of Systems: The following system(s) were reviewed: Constitutional, GI,Skin,Respiratory Physical Examination: BP 96/62 (BP Location: Right arm, Patient Position: Lying) Pulse 75 Temp 98.1 F (36.7 C) (Oral) Resp 14 Ht 4' 11 Wt 59 kg (130 lb 1.1 oz) SpO2 99% BMI 26.27 kg/m General: NAD; Alert and oriented x3 Eyes: Conjunctiva and sclera clear Lungs: Clear without rales, rhonchi or wheezes; no increased respiratory effort Cardiovascular: RRR; no edema Abdomen: Positive bowel sounds; soft; non tender Extremities: No cyanosis or clubbing, knee postoperative Skin: No rashes or nodules; normal turgor Neurologic: No focal motor deficits Psych: Mood and affect appropriate Results/Medications Reviewed: Current Facility-Administered Medications Medication Dose Route Frequency Provider Last Rate Last Admin acetaminophen (TYLENOL) tablet 650 mg 650 mg Oral Q4H PRN Nicky Soriano PA-C 650 mg at 11/18/20 0538 Or acetaminophen (TYLENOL) solution 650 mg 650 mg Oral Q4H PRN Nicky Soriano PA-C 650 mg at 11/18/20 0030 Or acetaminophen (TYLENOL) suppository 650 mg 650 mg Rectal Q4H PRN Nicky Soriano PA-C ascorbic acid (vitamin C) (VITAMIN C) tablet 500 mg 500 mg Oral Daily Christ Iqbal MD 500 mg at 11/24/20 0842 atorvastatin (LIPITOR) tablet 20 mg 20 mg Oral Nightly Solomon Meade PA-C 20 mg at 11/23/20 2227 [MAR Hold] bacitracin zinc-polymyxin B ointment Topical BID Emiliano Ross MD Given at 11/23/20 0618 bisacodyL (DULCOLAX) suppository 10 mg 10 mg Rectal Daily PRN Christ Iqbal MD budesonide-formoteroL (SYMBICORT) 160-4.5 mcg/actuation inhaler 2 puff 2 puff Inhalation BID Jonathan Geller DO 2 puff at 11/24/20 0846 buPROPion (WELLBUTRIN SR) 12 hr tablet 150 mg 150 mg Oral BID Christ Iqbal MD 150 mg at 11/24/20 0841 calcium carbonate (TUMS) chewable tablet 500 mg 500 mg Oral Daily PRN Kendra Ingram DO 500 mg at 11/21/20 1002 cefePIMe-dextrose (MAXIPIME) 2 gram/50 mL IVPB 2,000 mg 2,000 mg Intravenous Q12H Jonathan Geller DO 100 mL/hr at 11/24/20 0310 2,000 mg at 11/24/20 0310 cholecalciferol (vitamin D3) tablet 1,000 Units 1,000 Units Oral Daily Christ Iqbal MD 1,000 Units at 11/24/20 0842 clopidogreL (PLAVIX) tablet 75 mg 75 mg Oral Daily Kendra Ingram DO 75 mg at 11/24/20 0842 cyanocobalamin (B-12) tablet 100 mcg 100 mcg Oral Daily Christ Iqbal MD 100 mcg at 11/24/20 0842 enoxaparin (LOVENOX) syringe 30 mg 30 mg Subcutaneous Daily Kendra Ingram DO 30 mg at 11/23/20 213 famotidine (PEPCID) tablet 20 mg 20 mg Oral Nightly Kendra Ingram DO 20 mg at 11/23/202137 folic acid (FOLVITE) tablet 1 mg 1 mg Oral Daily Christ Iqbal MD 1 mg at 11/24/20 0842 guaiFENesin (MUCINEX) 12 hr tablet 600 mg 600 mg Oral Q12H BRYAN Kendra Ingram DO 600 mg at 11/24/20 0842 metoprolol (LOPRESSOR) injection 5 mg 5 mg Intravenous Q6H PRN Nicky Soriano PA-C Or hydrALAZINE (APRESOLINE) injection 10 mg 10 mg Intravenous Q6H PRN Nicky Soriano PA-C HYDROcodone-acetaminophen (NORCO) 5-325 mg per tablet 1-2 tablet 1-2 tablet Oral Q4H PRN Nicky Soriano PA-C 1 tablet at 11/24/20 0845 ipratropium-albuteroL (DUO-NEB) 0.5-2.5 mg/3 ml nebulizer solution 3 mL 3 mL Inhalation 4x daily Jonathan Geller, DO 3 mL at 11/24/20 0752 ipratropium-albuteroL (DUO-NEB) 0.5-2.5 mg/3 ml nebulizer solution 3 mL 3 mL Inhalation Q2H PRN Kendra Ingram DO lactated Ringers infusion 25 mL/hr Intravenous Continuous Dl Patiño MD Stopped at 11/22/20 1200 lactated Ringers infusion 25 mL/hr Intravenous Continuous Ann Marie Cooper MD Stopped at 11/22/20 1200 melatonin Tab 5 mg 5 mg Oral Nightly PRN Christ Iqbal MD 5 mg at 11/11/202047 naloxone (NARCAN) injection 0.1 mg 0.1 mg Intravenous PRN Nicky Soriano PA-C And naloxone (NARCAN) injection 0.4 mg 0.4 mg Intravenous PRN Nicky Soriano PA-C naloxone (NARCAN) injection 0.1 mg 0.1 mg Intravenous PRN Ann Marie Cooper MD And naloxone (NARCAN) injection 0.4 mg 0.4 mg Intravenous PRN Ann Marie Cooper MD nitroGLYCERIN 50 mg in dextrose (D5W) 250 mL infusion 0-200 mcg/min Intravenous Continuous PRN Nicky Soriano PA-C ondansetron (ZOFRAN-ODT) disintegrating tablet 4 mg 4 mg Oral Q6H PRN Christ Iqbal MD 4 mg at 11/20/20 194 Or ondansetron (ZOFRAN) injection 4 mg 4 mg Intravenous Q6H PRN Christ Iqbal MD senna (SENOKOT) tablet 8.6 mg 1 tablet Oral BID PRN Christ Iqbal MD 8.6 mg at 11/24/20 0842 senna-docusate (SENNA-S) 8.6-50 mg per tablet 1 tablet 1 tablet Oral BID Nicky Soriano PA-C 1 tablet at 11/24/20 0841 sodium chloride (PF) (NS) flush 5 mL 5 mL Intravenous PRN Christ Iqbal MD And sodium chloride (PF) (NS) flush 5 mL 5 mL Intravenous Q8H BRYAN Iqbal MD 5 mL at And sodium chloride 0.9% (NS) 0-150 mL/hr Intravenous PRN Christ Iqbal MD Stopped at 11/12/20 1012 sodium chloride (PF) (NS) flush 5 mL 5 mL Intravenous PRN Nicky Gatz, PA-C 5 mL at 11/15/202024 And sodium chloride (PF) (NS) flush 5 mL 5 mL Intravenous Q8H BRYAN Nicky Gatnicole, PA-C 5 mL at 11/24/20 0514 And sodium chloride 0.9% (NS) 0-150 mL/hr Intravenous PRN Nicky Gatz, PA-C Stopped at 11/20/20 0350 traZODone (DESYREL) tablet 50 mg 50 mg Oral Nightly PRN Christ Iqbal MD 50 mg at 11/11/202047 Lab Results Component Value Date WBC 9.10 11/24/2020 HGB 7.8 (L) 11/24/2020 HCT 25.6 (L) 11/24/2020 MCV 95.5 11/24/2020 PLT 433 (H) 11/24/2020 Lab Results Component Value Date GLUCOSE 98 11/24/2020 CALCIUM 8.5 11/24/2020 NA 137 11/24/2020 K 4.0 11/24/2020 CL 103 11/24/2020 BUN 16 11/24/2020 CREATININE 0.76 11/24/2020 Cultures: As noted * Flo Capellan LSW - 11/24/2020 9:50 AM EDT Care Management Progress Note Patient Name: Jessica Gonzalez Working Discharge Plan: D/C Disposition: Home Health Care Services Agency/Destination: Other ([facility]) SW spoke to Liza ([phone]) in admissions for spring. Per Liza, pt will need a covid and HENS. Per Liza, they dont usually take admits on the weekends so it's ok to request transport for today. NARAYAN answered Lenora's questions about pt diet (regualr) and covid status (fully vax). NARAYAN reached out to RN to inquire about pt's continence status (continent). SW will provide this to [facility]. SW has reached out to [facility] extenders to request transport for today. Pt's ID recs are still pending at this time. Addendum 12:21 pm: Transport has been confirmed as below. NARAYAN placed call to [facility] with [facility] to inform of this transport time and confirmed with her that pt is continent of Bowel and bladder. [facility] can be reached over the weekend if pt is to transport at [phone]. No one will be in office at the SNF on Friday. In addition, pt's covid test and results should be no sooner than 11/25/20 in case pt must transport on the 11/29/20 date. NARAYAN reached out to medical team to assess if pt is able to safely transport by vehicle. PT confirmed that she can transport via private vehicle. Addendum 4:45 pm: NARAYAN met with pt at bedside to see if pt has someone that can transport by private vehicle. NARAYAN informed pt that she has been accepted to [place] and that transport is November 29. Pt also doesn't want the ambulance cost. Pt informed SW that her brother Alisson would be the only one that could transport. SW placed call to brother Alisson about this. vm left with request for him to call nurse station ([phone]) Transportation Plan: Transportation Type: Auto Date: 11/29 Time: 1:30-2:30pm Destination: [employer] Company: [email or web address] ([phone]) Special needs/equipment:Oxygen Truck Type: Ambulance Companies called:[email or web address], [place], [employer] and [facility] [employer] Completed: Yes Trip on Will Call: starting Monday 11/27 Pending/Established Referrals: [facility]- accepting (no precert needed) Barriers to Discharge/Plan for Follow Up: Pt will need a new covid and results no sooner than 11/25/20. Final ID recs are pending. Follow for transport arrangements (private vehicle vs ambulance) and inform snf * Deepti Salinas RD - 11/24/2020 9:16 AM EDT Nutrition Care Follow Up Monitoring and Evaluation: PO intake was less than 50% at most meals Nutrition Increased Nutrient Needs related to clinical presentation as evidenced by nonhealing surgical wound. Not resolved Nutrition Intervention: Continue Meal and Snacks/ONS Nutrition Prescription: Diet: Reg Oral nutrition supplement: Boost Plus Tid Chocolate, Magic cup dinner Nutrition Goals: PO intake > 50% most meals Start Date:11/24/2020 Expected End Date:11/28/2020 Nutrition Education: No needs at this time Assessment: Pertinent clinical information: POD2 s/p RLE dressing change. Awaiting placement to SNF. Current weight: 59 kg (130 lb 1.1 oz) Body mass index is 26.27 kg/m . Weight: no new wt since previous assessment Current diet order: regular Recent intake: 25-50%x5, 75-100%x1. Current intake likely does not meet estimated needs. Difficulty Chewing/Swallowing: No Skin Integrity: Surgical incision GI Function: LBM 11/23/20 Physical Appearance: no change from initial assessment Labs: Recent Labs 11/24/20 0528 NA 137 K 4.0 BICARB 25 CL 103 GLUCOSE 98 BUN 16 CREATININE 0.76 Scheduled Meds: ascorbic acid (vitamin C) 500 mg Oral Daily atorvastatin 20 mg Oral Nightly [MAR Hold] bacitracin zinc-polymyxin B Topical BID budesonide-formoteroL 2 puff Inhalation BID buPROPion 150 mg Oral BID cefePIMe (MAXIPIME) IVPB 2,000 mg Intravenous Q12H cholecalciferol (vitamin D3) 1,000 Units Oral Daily clopidogreL 75 mg Oral Daily cyanocobalamin 100 mcg Oral Daily enoxaparin (LOVENOX) injection 30 mg Subcutaneous Daily famotidine 20 mg Oral Nightly folic acid 1 mg Oral Daily guaiFENesin 600 mg Oral Q12H BRYAN ipratropium-albuteroL 3 mL Inhalation 4x daily senna-docusate 1 tablet Oral BID sodium chloride (PF) 5 mL Intravenous Q8H BRYAN sodium chloride (PF) 5 mL Intravenous Q8H BRYAN Continuous Infusions: lactated Ringers Stopped (11/22/20 1200) lactated Ringers Stopped (11/22/20 1200) nitroGLYCERIN sodium chloride 0.9 % Stopped (11/12/20 1012) sodium chloride 0.9 % Stopped (11/20/20 0350) Estimated Energy Needs Total Energy Estimated Needs: 8435-0277 yong Method for Estimating Needs: 25-30 yong/kg bw Total Protein Estimated Needs: 73-92 g Method for Estimating Needs: 1.2-1.5g/kg bw * Corina Delacruz OTA - 11/24/2020 8:27 AM EDT Occupational Therapy OCCUPATIONAL THERAPY TREATMENT NOTE Skilled Therapy Needs After Discharge Anticipate Resolution of Current Assessment Limitations Including: Mechanical Barriers, Pain Are Skilled Therapy Services Needed After Discharge: Yes Intensity of Skilled Therapy: Up to 5 days per week Anticipated Duration of Skilled Therapy: Duration 10 - 30 days DME Recommendation: Bedside commode, Wheelchair, Elevating legrests on wheelchair DME Rationale: Equipment required to maintain weight bearing status per physician orders, Wheelchair - mobility limitation cannot be safely resolved with ambulatory aide, Commode - patient confined to single room, Patient's condition prevents him/her from accomplishing ADL without recommended equipment, Patient's condition creates an increased risk of safety hazard without recommended equipment, Patient will require increased level of care without recommended equipment Rehab Potential: Good, For goals Outcomes Measures Prior Function Daily Activity Raw Score: 24 Prior Function Daily Activity % Impaired: 0% AM-PAC Daily Activity Raw Score: 18 AM-PAC Daily Activity % Impaired: 46.65% The patient's current [facility] score does not reflect their needs at discharge. Patient can still benefit from the intensity of therapy services recommended: To continue progress toward functional independence Home living situation requires pt to be fully independent with functional mobility and ADLs For continued functional mobility training promoting increased safety in the home environment Activity Tolerance Activity Tolerance: Tolerates 30 min acitivty with multiple rests Therapy Precautions Orthotic Devices: Yes Lower Extremity: Right (posterior ankle splint ) Weight Bearing Status: X RUE: (can't WB through R wirst d/t old injury - using platform WW) RLE: Non Wt bearing General Rehab Precautions: Fall risk Cognition Overall Cognitive Status: Within Functional Limits Arousal/Alertness: Appropriate responses to stimuli Orientation Level: Oriented X4 Executive functioning: Insight, Planning / Organizing, Min impairment Safety Judgment: Good awareness of safety precautions Problem Solving: Able to problem solve independently Attention: Attends to quiet environment Hearing Status: WFL Social Interaction: Cooperative, Appropriate Comments: Patient was able to follow 1-2 step commands. ADL Grooming: Set-up, Minimal assist, Increased time to complete (Min-brushing hair) Grooming - Skilled Intervention Provided: environmental setup/modification, facilitation Grooming - For: task simplification/modification Grooming - Resulting In: improved overall self care, improved performance with ADLs UE Bathing: Stand by assist (assistance needed for washing of back) UE Bathing - Skilled Intervention Provided: environmental setup/modification, monitored patient's safety & tolerance UE Bathing - For: task simplification/modification, self-monitoring, safe bathing techniques UE Bathing - Resulting In: improved functional independence, improved overall self care, improved performance with ADLs LE Bathing: Supervision LE Bathing - Skilled Intervention Provided: verbal cues, facilitation, monitored patient's safety & tolerance LE Bathing - For: LE management, LE positioning, one-handed techniques for ADLs, safe bathing techniques, self-monitoring LE Bathing - Resulting In: improved activity tolerance, improved functional independence, improved overall self care, improved performance with ADLs, improved safety UE Dressing: Independent LE Dressing: Moderate assist, Increased time to complete (donning depends) LE Dressing - Skilled Intervention Provided: verbal cues, tactile cues, demonstration, facilitation, monitored patient's safety & tolerance, [id number] instructions, patient education LE Dressing - For: LE management, LE positioning, adaptive techniques for lower body ADLs, clothingmodification to facilitate ease of dressing, efficient movement, self-monitoring, sequencing of movement LE Dressing - Resulting In: improved activity tolerance, improved ability to understand / adhere toprecautions, improved functional independence, improved initiation, improved performance with ADLs,improved safety, increased upright tolerance for functional tasks Toileting: Maximal assist (standing pericare following bowel movement) Toileting - Skilled Intervention Provided: verbal cues, tactile cues, facilitation, monitored patient's safety and tolerance, [id number] instructions, patient education Toileting - For: LE management, UE positioning, one-handed techniques for ADLs, proper body mechanics, efficient movement, task simplification/modification Toileting - Resulting In: improved ability to understand / adhere to precautions, improved activitytolerance, improved functional independence, improved initiation, improved overall self care, improved performance with ADLs, improved safety, increased upright tolerance for functional tasks Functional Mobility: Contact guard assist, Minimal assist Functional Mobility - Skilled Intervention Provided: monitoring patient response with activity, monitoring patient response with positional changes, verbal cues, tactile cues, patient education, provided step by step instructions Functional Mobility - For: LE management, UE management, controlled descent, increased participation in mobility task, safe use of AD and/or equipment, safety during functional task(s) Functional Mobility - Resulting In: improved activity tolerance, improved adherence to precautions,increased initiation/participation in mobility task(s), increased upright tolerance for functional task(s) Bed Mobility Supine to Sit: (in chair at start of session.) Sit to Supine: (in chair at end of session. ) Functional Transfers Sit to Stand: Moderate assist Bed to Chair Transfers: Minimal assist Toilet Transfers: Minimal assist, to/from bedside commode Sidehand: RUE, platform, wheeled walker Additional Functional Transfer Trial 2: Yes Sit to Stand Trial 2: Minimal assist Bed to Chair Trial 2: Minimal assist Sidehand Trial 2: RUE, platform, wheeled walker Skilled Intervention Provided: verbal cues, tactile cues, facilitation, monitoring patient responsewith activity, provided step by step instructions, patient education For: LE management, UE positioning, controlled descent, compensatory strategies, increased participation in mobility task, necessary precautions, proper body mechanics, safe use of AD and/or equipment, safety during functional task(s), sequencing of movement Resulting In: improved activity tolerance, improved adherence to precautions, improved functional independence, increased initiation/participation in mobility task(s), improved performance, improved safety, increased upright tolerance for functional task(s) Additional Treatment Details Patient was able to recall NWB of RLE, but required minimal cues for adherence with transfers this date. Home Living Obtained Home Living and PLOF info from: Patient Lives With: Alone Type of Home: House Home Layout: One level, Laundry in basement Steps to enter home: Yes Rails to enter home: 1 rail Number of stairs to enter home: 2 Bathroom Shower/Tub: Tub/shower unit Bathroom Toilet: Standard Bathroom Equipment: Grab bars in shower, Shower chair Bathroom Accessibility: Accessible Mobility Equipment: Cane, Wheeled walker, Rollator Prior Level of Function Receives Help From: Family Level of Mead - Transfers/Ambulation/Mobility: Independent with functional transfers, Independent with household ambulation, Independent with community ambulation Level of Mead - ADLs: Independent Level of Mead - Homemaking: Independent Driving: Patient drives For complete objective data, detailed plan of care and patient education refer to: OT Evaluation flowsheet, OT Evaluation and Treatment flowsheet, OT Treatment flowsheet, patient Plan of Care, Plan of Care progress note, and Patient Education. This note stands as the current Discharge Summary upon patient discharge from the hospital or completion of Occupational Therapy Plan of Care. * Nancy Loza CNP - 11/24/2020 8:14 AM EDT [facility] [place] Assessment and Plan: 75 y.o. 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 Non-healing surgical wound Surgical wound infection S/P R TKA in [place] with subsequent ulceration over patella that was managed with lateral gastroc muscle flap and skin graft; still with ulcer in pretibial region; chronically on PO doxy since L hip NF 4 years ago Bone scan (11/11) negative for OM, showed cellulitis Plastics and ID consulted S/P OR (11/17) for excision of ulcer, debridement of bone from patella and tibial tubercle, flap andSTSG Wound cx growing Pseudomonas and Alcaligenes; Wound cx positive for Pseudomonas and Alcaligenes, abx changed to cefepime Per ID: plan for Cipro 500mg BID x3 weeks and she should follow-up with her physicians in [facility] to ongoing doxycycline therapy Ok for d/c from plastics standpoint: BID dressing to RLE graft: bacitracin, adaptic, kerlix fluffs,kerlix roll, janelle, splint Follow up in 1 week for drain removal Acute Blood loss anemia Hgb ~ 9-10 on admission Acute drop to 6.9 in surgery (11/17) due to prolonged bleeding S/P 2U PRBC intraop Hgb 8.7 --> 7.9 -->7.2 post transfusion, now stable Continue Plavix and Lovenox. Transfuse for Hgb < 7 PAD ABIs showing 70-99% stenosis of R SFA and left external iliac and SFA Vascular sx consulted S/P Aortogram and balloon angioplasty of RLE (11/13) Plavix and Lipitor started Hx of DVT Unclear when DVT noted, but started on Xarelto starter pack (05/2020) per pharmacy review Pt states she had an IVC filter placed (05/2020) that was removed after 8 days (had for surgery) LE doppler of LLE (11/20) negative for DVT Holding Xarelto currently. Resume when able, unclear if pt needs retirement COPD exacerbation Acute respiratory failure with hypoxia - RESOLVED Not on O2 at baseline; requiring 4L O2 on admission Secondary to COPD exacerbation and pulm vascular congestion Pt non-compliant with home inhalers Symbicort started Completed 5 day course of Azithro and prednisone Holding home lasix due to hypotension (pt takes for swelling) Duobenbs scheduled and prn IS, pulm toilet - O2 weaned off Indigestion Started Pepcid PRN Tums Abnormal CXR Nodular opacity at R mid lung CT chest (11/15) showed emphysema, no nodules JERICA, resolved Cr 1-1.3 on admission, unclear baseline Now resolved RA No flare currently, chronically on methotrexate Hold methotrexate for now, may restart at discharge Depression Continue home wellbutrin Tobacco abuse Smokes 5 cig daily Pt stated she was done smoking and asked that we throw her cigarettes in the trash; Encouraged continued cessation Pt declines NRT Code Status: Full Code Quality Measures DVT Prophylaxis: Lovenox - will need to transition back to Xarelto Sims Catheter: absent Disposition Discharge Location: [facility] Estimated Discharge Date: awaiting transport (arrnaged for 11/29) Outpatient Testing: F/u with plastics in 1 week Subjective Denies any chest pain, pressure of discomfort. Denies any shortness of breath, cough, or congestion. Denies any abdominal pain, nausea/vomiting. Tolerating PO intake. States she is voiding without issues. Denies bowel dysfunction. Review of Systems All systems have been reviewed and are negative except as noted in HPI or below Objective BP 96/62 (BP Location: Right arm, Patient Position: Lying) Pulse 75 Temp 98.1 F (36.7 C) (Oral) Resp 14 Ht 4' 11 Wt 59 kg (130 lb 1.1 oz) SpO2 99% BMI 26.27 kg/m Physical Examination General Appearance: alert, well appearing, and in no acute distress Cardiovascular: regular rate and rhythm; no murmurs, rubs, clicks or gallops; no peripheral edema Respiratory: lungs clear to auscultation bilaterally, no rhonchi or wheezes; On room air Abdomen: soft, non-tender, non-distended, +BS Neurological: alert, oriented x 3, normal speech; no focal neuro deficits Musculoskeletal: no deformities or joint tenderness Skin: R knee with wound vac in place, MECHE x [address] with serosanguinous drainage Psych: calm, cooperative, normal mood and affect Results/Medications Reviewed 11/24/20 8:14 AM Laboratory, Radiology, Cardiology, Medications and Transcriptions * Cary Alaniz, PT - 11/24/2020 7:45 AM EDT Physical Therapy PHYSICAL THERAPY TREATMENT NOTE Skilled Therapy Needs After Discharge Anticipate Resolution of Current Assessment Limitations Including: Mechanical Barriers, Pain Are Skilled Therapy Services Needed After Discharge: Yes Intensity of Skilled Therapy: Up to 5 days per week Anticipated Duration of Skilled Therapy: Duration 7 - 10 days DME Recommendation: (Maybe platform WW- TBD after trial with AD) Rehab Potential: Good, For goals Outcomes Measures Prior Function - Basic Mobility Raw Score: 24 Points Prior Function - Basic Mobility % Impaired: 0% AM-PAC Basic Mobility Raw Score: 12 Points AM-PAC Basic Mobility % Impaired: 61.94% Therapy Precautions Orthotic Devices: Yes Lower Extremity: Right (splint) Weight Bearing Status: X RLE: Non Wt bearing General Rehab Precautions: Fall risk Bed Mobility Supine to Sit: Contact guard assist Skilled Intervention Provided: verbal cues, provided step by step instructions For: LE management, LE positioning, UE management, UE positioning, efficient movement, necessary precautions Resulting in: improved activity tolerance, improved functional independence, improved performance, improved safety Transfers Sit to Stand: Moderate assist Bed to Chair: Moderate assist Stand Pivot Transfers: Moderate assist Sidehand: wheeled walker (with right platform) Skilled Intervention Provided: verbal cues For: LE management, LE positioning, UE management, UE positioning, compensatory strategies, efficient movement, fall prevention, necessary precautions, safety during functional tasks, safe use of AD and/or equipment, sequencing of movement Resulting in: improved activity tolerance, improved adherence to precautions, improved functional independence, improved performance, improved safety Home Living Obtained Home Living and PLOF info from: Patient Lives With: Alone Type of Home: House Home Layout: One level, Laundry in basement Steps to enter home: Yes Rails to enter home: 1 rail Number of stairs to enter home: 2 Bathroom Shower/Tub: Tub/shower unit Bathroom Toilet: Standard Bathroom Equipment: Grab bars in shower, Shower chair Bathroom Accessibility: Accessible Mobility Equipment: Cane, Wheeled walker, Rollator Prior Level of Function Receives Help From: Family Level of Mead - Transfers/Ambulation/Mobility: Independent with functional transfers, Independent with household ambulation, Independent with community ambulation Level of Mead - ADLs: Independent Level of Mead - Homemaking: Independent Driving: Patient drives For complete objective data, detailed plan of care and patient education refer to: PT Evaluation flowsheet, PT Evaluation and Treatment flowsheet, PT Treatment flowsheet, patient Plan of Care, Plan of Care progress note, and Patient Education. This note stands as the current Discharge Summary upon patient discharge from the hospital or completion of Physical Therapy Plan of Care. * Kana Brown MD - 11/23/2020 1:18 PM EDT [facility] [place]GRESS [place] Assessment and Plan: 75 y.o. female patient of Stuart Zamora, with history of colon CA s/p partial colectomy, COPD, NF L hip s/p replacement, TKA complicated by infection requiring debridement and grafting presented with nonhealing surgical wound. Non-healing surgical wound Surgical wound infection S/P R TKA in [place] with subsequent ulceration over patella that was managed with lateral gastroc muscle flap and skin graft Pt still with ulcer in pretibial region Pt evaluated by Dr. Patiño, plastic surgery for management Bone scan (11/11) without evidence of osteomyelitis, showed cellulitis Holding home chronic doxycycline, pt has been on since L Hip NF 4 yrs ago Vascular consulted S/P Aortogram and balloon angioplasty of RLE (11/13) Wound cx positive for Pseudomonas and Alcaligenes, abx changed to cefepime S/P OR (11/17) for excision of ulcer, debridement of bone from patella and tibial tubercle, flap andSTSG Wound vac in place Intraop cx with Pseudomonas in broth only ID consulted for abx course Plastics following. Acute Blood loss anemia Hgb ~ 9-10 on admission Acute drop to 6.9 in surgery (11/17) due to prolonged bleeding S/P 2U PRBC intraop Hgb 8.7 --> 7.9 -->7.2 post transfusion, now stable Lab Results Component Value Date HGB 7.5 (L) 11/23/2020 Continue plavix and lovenox. Continue to monitor Transfuse for Hgb < 7 PAD ABIs showing 70-99% stenosis of R SFA and left external iliac and SFA Home Xarelto held S/P Aortogram and balloon angioplasty of RLE (11/13) Plavix, lipitor started COPD exacerbation Acute respiratory failure with hypoxia Not on O2 at baseline, requiring 4L O2 on admission Secondary to COPD exacerbation and pulm vascular congestion Pt non compliant with home inhalers Symbicort started Completed 5 day course of Azithro and prednisone Holding home lasix due to hypotension (pt takes for swelling), resume when able Duobenbs scheduled and prn IS, pulm toilet Wean O2 as able, down to 1-2L O2 (11/18) Indigestion Started pepcid PRN tums Abnormal CXR Nodular opacity at R mid lung CT chest (11/15) showed emphysema, no nodules JERICA, resolved Cr 1-1.3 on admission, unclear baseline Now resolved RA No flare currently, chronically on methotrexate Hold methotrexate for now, may restart at discharge Depression Continue home wellbutrin Hx of DVT Unclear when DVT noted, but started on Xarelto starter pack (05/2020) per pharmacy review Pt states she had an IVC filter placed (05/2020) that was removed after 8 days (had for surgery) LE doppler of LLE negative for DVT Holding Xarelto currently. 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 Estimated Discharge Date: TBD, when cleared by Plastics. Outpatient Testing: TBD Subjective Pt denies complaints. Pain well controlled. Patient denies fevers, chills, headache, chest pain, SOB, n/v/d or abdominal pain Review of Systems All systems have been reviewed and are negative except as noted in HPI or below Objective BP 111/69 (BP Location: Left arm, Patient Position: Lying) Pulse 92 Temp 97.9 F (36.6 C) (Oral) Resp (!) 26 Ht 4' 11 Wt 59 kg (130 lb 1.1 oz) SpO2 95% BMI 26.27 kg/m Physical Examination General Appearance: alert, well appearing, and in no acute distress Cardiovascular: regular rate and rhythm; no murmurs, rubs, clicks or gallops; no peripheral edema Respiratory: lungs clear to auscultation bilaterally, no rhonchi or wheezes; On 1L O2 NC Abdomen: soft, non-tender, non-distended, +BS Neurological: alert, oriented x 3, normal speech; no focal neuro deficits Musculoskeletal: no deformities or joint tenderness Skin: R knee with wound vac in place, MECHE x [address] with serosanguinous drainage Psych: calm, cooperative, normal mood and affect Results/Medications Reviewed 11/23/20 1:18 PM Laboratory, Radiology, Cardiology, Medications and Transcriptions * Eboni Riley LSW - 11/23/2020 10:52 AM EDT Care Management Progress Note Patient Name: Jessica Gonzalez Working Discharge Plan: SNF Agency/Destination: Other ([facility]) Transportation Plan: Transportation Type: Auto Pending/Established Referrals: SW following for [place] [facility] [place] placement at this time. Pt declined by preferred choice [facility]. 2 referrals placed this AM & under review: [facility] (P: [phone]/ F: [phone]) admissions [facility] (P: [phone]/ F: [phone]) admissions [facility] list also provided to pt at bedside, will obtain more choices as needed. Barriers to Discharge/Plan for Follow Up: Following for [place] [facility] placement and medical clearance. * Doris Jessica CNP - 11/23/2020 10:39 AM EDT PLASTIC SURGERY PROGRESS NOTE A: Jessica Gonzalez is a 75 y.o.female POD1 s/p RLE dressing change P: -BID dressing to RLE graft: bacitracin, adaptic, kerlix fluffs, kerlix roll, janelle, splint -Strip and record JPs -NWB RLE -Ok to discharge per PRS. Follow up in 1 week for drain removal S: Pain well controlled. O: Temp: [97.9 F (36.6 C)-98.2 F (36.8 C)] 97.9 F (36.6 C) Heart Rate: [64-99] 92 Resp: [14-27] 26 BP: (93-116)/(57-91) 111/69 Lab Results Component Value Date WBC 10.14 11/23/2020 HGB 7.5 (L) 11/23/2020 HCT 24.3 (L) 11/23/2020 MCV 94.6 11/23/2020 PLT 417 (H) 11/23/2020 Lab Results Component Value Date GLUCOSE 92 11/23/2020 CALCIUM 8.3 (L) 11/23/2020 NA 136 11/23/2020 K 4.1 11/23/2020 CL 102 11/23/2020 BUN 15 11/23/2020 CREATININE 0.78 11/23/2020 Gen:NAD RLE: dressing CDI. JPs with 5, 0, 10cc SS output. Doris Jessica CNP Plastic Reconstructive Surgery Service Pager ([phone]): Associated attestation - Dl Patiño MD - 11/23/2020 12:52 PM EDT Patient examined and chart reviewed. I agree with the resident/ CONTRACT NEGOTIATION SPECIALIST's evaluation and plan. * Aysha Valenzuela OT - 11/23/2020 8:35 AM EDT Occupational Therapy OCCUPATIONAL THERAPY PROGRESS REPORT Skilled Therapy Needs After Discharge Anticipate Resolution of Current Assessment Limitations Including: Mechanical Barriers, Pain Are Skilled Therapy Services Needed After Discharge: Yes Intensity of Skilled Therapy: Up to 5 days per week Anticipated Duration of Skilled Therapy: Duration 10 - 30 days DME Recommendation: Bedside commode, Wheelchair, Elevating legrests on wheelchair DME Rationale: Equipment required to maintain weight bearing status per physician orders, Wheelchair - mobility limitation cannot be safely resolved with ambulatory aide, Commode - patient confined to single room, Patient's condition prevents him/her from accomplishing ADL without recommended equipment, Patient's condition creates an increased risk of safety hazard without recommended equipment, Patient will require increased level of care without recommended equipment Rehab Potential: Good, For goals Outcomes Measures Prior Function Daily Activity Raw Score: 24 Prior Function Daily Activity % Impaired: 0% AM-PAC Daily Activity Raw Score: 17 AM-PAC Daily Activity % Impaired: 50.11% Activity Tolerance Activity Tolerance: Tolerates 10 - 20 min activity with multiple rests Therapy Precautions Orthotic Devices: Yes Lower Extremity: Right (posterior ankle splint ) Weight Bearing Status: X RUE: (can't WB through R wirst d/t old injury - using platform WW) RLE: Non Wt bearing General Rehab Precautions: Fall risk Cognition Overall Cognitive Status: Within Functional Limits Arousal/Alertness: Appropriate responses to stimuli Orientation Level: Oriented X4 Executive functioning: Insight, Min impairment Safety Judgment: Good awareness of safety precautions Problem Solving: Able to problem solve independently Attention: Attends to quiet environment Hearing Status: WFL Social Interaction: Appropriate, Cooperative Comments: Pt follows 1-2 step commands 100% of the time ADL Feeding: Modified independent (sitting EOB) Feeding - Skilled Intervention Provided: facilitation, monitored patient's safety and tolerance Feeding - For: LE management, self-monitoring Feeding - Resulting In: increased upright tolerance for functional tasks LE Dressing: Minimal assist (don L sock) LE Dressing - Skilled Intervention Provided: verbal cues, tactile cues, facilitation LE Dressing - For: LE management, adaptive techniques for lower body ADLs, fall prevention LE Dressing - Resulting In: improved participation in ADL task, increased insight into deficits Toileting: Maximal assist (bed level esmer care) Toileting - Skilled Intervention Provided: facilitation, [id number] instructions Toileting - For: sequencing of movement Toileting - Resulting In: improved participation in ADL task, increased insight into deficits Bed Mobility Rolling: Contact guard assist Supine to Sit: Stand by assist Sit to Supine: Stand by assist Functional Transfers Sit to Stand: Moderate assist (+ 3 lateral hops to EOB) Sidehand: platform, wheeled walker Additional Functional Transfer Trial 2: Yes Sit to Stand Trial 2: Minimal assist Sidehand Trial 2: platform, wheeled walker Skilled Intervention Provided: facilitation, verbal cues, tactile cues, provided step by step instructions For: LE management, UE positioning, proper body mechanics, safe use of AD and/or equipment Resulting In: improved adherence to precautions, increased initiation/participation in mobility task(s), improved performance, increased self-management of symptoms and impairments Balance Treatment Sitting Balance - Static: Independent Sitting Balance - Dynamic: Independent Home Living Obtained Home Living and PLOF info from: Patient Lives With: Alone Type of Home: House Home Layout: One level, Laundry in basement Steps to enter home: Yes Rails to enter home: 1 rail Number of stairs to enter home: 2 Bathroom Shower/Tub: Tub/shower unit Bathroom Toilet: Standard Bathroom Equipment: Grab bars in shower, Shower chair Bathroom Accessibility: Accessible Mobility Equipment: Cane, Wheeled walker, Rollator Prior Level of Function Receives Help From: Family Level of [place] - Transfers/Ambulation/Mobility: Independent with functional transfers, Independent with household ambulation, Independent with community ambulation Level of [place] - ADLs: Independent Level of Mead - Homemaking: Independent Driving: Patient drives For complete objective data, detailed plan of care and patient education refer to: OT Evaluation flowsheet, OT Evaluation and Treatment flowsheet, OT Treatment flowsheet, patient Plan of Care, Plan of Care progress note, and Patient Education. This note stands as the current Discharge Summary upon patient discharge from the hospital or completion of Occupational Therapy Plan of Care. * Aysha Valenzuela OT - 11/23/2020 8:30 AM EDT ORTHOSIS CHECK NOTE Reason for Visit Orthosis Check Pain Assessment Pain Assessment Scale: 0-10 DVPRS 0-10 DVPRS: 0/10 Cognition Overall Cognitive Status: Within Functional Limits Arousal/Alertness: Appropriate responses to stimuli Orientation Level: Oriented X4 Executive functioning: Insight, Min impairment Safety Judgment: Good awareness of safety precautions Problem Solving: Able to problem solve independently Attention: Attends to quiet environment Hearing Status: WFL Social Interaction: Appropriate, Cooperative Comments: Pt follows 1-2 step commands 100% of the time Orthosis Issued/Fabricated Reason for Orthosis: Protection of a skin graft Orthosis Type: Right, Custom, Static Ankle Foot Orthosis Achieved Orthosis Positioning: Met Patient Performance Knowledge of Orthosis/Skin Care: Minimal assist Knowledge of Wear Schedule: Independent Ability to Don Orthosis: Maximum assist Ability to Doff Orthosis: Maximum assist Patient Skilled Intervention Skilled Intervention Provided to Patient: Education provided on how to don/doff orthosis, Verbal cues, Visual cues, Max cues provided for orthosis positioning, strap management and proper fit Comments: Orthosis straps placed incorrectly at start of session. Therapist corrects strapping and educates pt on proper strap management for self and while directing care. * Jose Chaney MD - 11/23/2020 7:50 AM EDT DAILY PROGRESS NOTE Patient Name: Jessica Gonzalez MR #: [id number] Assessment and Plan: 1. Right total knee replacement with chronic wound and failed flap/skin graft with exposed hardwarewith preop culture Pseudomonas/alcaligenes and now post flap revision. I think she would benefit from antibiotic treatment but the question is whether we can do oral Cipro or whether she needs intravenous treatment. Graft doing well 11/22. 2. Peripheral vascular disease post intervention for inflow improvement 3. 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 Rheumatoid arthritis-has been on hydroxychloroquine 5. COPD-currently breathing easy Disposition Comments: We will decide optimal discharge antibiotic regimen and I have had a detailed discussion with her in terms of risk benefit with intravenous antibiotic therapy versus oral Cipro and have reviewed the various side effects and for what I can gather she is leaning towards taking Cipro with monitoring of her tendon status etc.; she will probably also need chronic doxycycline for her left total hip replacement and this can be coordinated with her physicians in [place]. Dr. Little will be rounding at [facility] from 11/24-12/03. Subjective/Objective: Perpetual Assessment: Jessica Gonzalez is a 75 y.o. female on hospital day 14 with peripheral vascular disease, COPD, rheumatoid arthritis, chronic left total hip replacement infection and right total knee replacement wound. Chief Complaint: Right leg wound HPI: Leg pain stable Review of Systems: The following system(s) were reviewed: Constitutional, GI,Skin,Respiratory Physical Examination: BP 116/61 (BP Location: Right arm, Patient Position: Lying) Pulse 64 Temp 98.1 F (36.7 C) (Oral) Resp 16 Ht 4' 11 Wt 59 kg (130 lb 1.1 oz) SpO2 96% BMI 26.27 kg/m General: NAD; Alert and oriented x3 Eyes: Conjunctiva and sclera clear Lungs: Clear without rales, rhonchi or wheezes; no increased respiratory effort Cardiovascular: RRR; no edema Abdomen: Positive bowel sounds; soft; non tender Extremities: No cyanosis or clubbing, knee postoperative Skin: No rashes or nodules; normal turgor Neurologic: No focal motor deficits Psych: Mood and affect appropriate Results/Medications Reviewed: Current Facility-Administered Medications Medication Dose Route Frequency Provider Last Rate Last Admin acetaminophen (TYLENOL) tablet 650 mg 650 mg Oral Q4H PRN KIRA ShahC 650 mg at 11/18/20 0538 Or acetaminophen (TYLENOL) solution 650 mg 650 mg Oral Q4H PRN PRIYA Shah-C 650 mg at 11/18/20 0030 Or acetaminophen (TYLENOL) suppository 650 mg 650 mg Rectal Q4H PRN KIRA ShahC ascorbic acid (vitamin C) (VITAMIN C) tablet 500 mg 500 mg Oral Daily Christ Iqbal MD 500 mg at 11/22/20 0935 atorvastatin (LIPITOR) tablet 20 mg 20 mg Oral Nightly Solomon Meade PA-C 20 mg at 11/22/202135 bacitracin zinc-polymyxin B ointment Topical BID Emiliano Ross MD Given at 11/23/20 0618 bisacodyL (DULCOLAX) suppository 10 mg 10 mg Rectal Daily PRN Christ Iqbal MD budesonide-formoteroL (SYMBICORT) 160-4.5 mcg/actuation inhaler 2 puff 2 puff Inhalation BID Jonathan Geller DO 2 puff at 11/22/20 193 buPROPion (WELLBUTRIN SR) 12 hr tablet 150 mg 150 mg Oral BID Christ Iqbal MD 150 mg at 11/22/20 213 calcium carbonate (TUMS) chewable tablet 500 mg 500 mg Oral Daily PRN Kendra Ingram DO 500 mg at 11/21/20 1002 cefePIMe-dextrose (MAXIPIME) 2 gram/50 mL IVPB 2,000 mg 2,000 mg Intravenous Q12H Jonathan Geller DO 100 mL/hr at 11/23/20 0317 2,000 mg at 11/23/20 0317 cholecalciferol (vitamin D3) tablet 1,000 Units 1,000 Units Oral Daily Christ Iqbal MD 1,000 Units at 11/22/20 0936 clopidogreL (PLAVIX) tablet 75 mg 75 mg Oral Daily Kendra Ingram DO 75 mg at 11/22/20935 cyanocobalamin (B-12) tablet 100 mcg 100 mcg Oral Daily Christ Iqbal MD 100 mcg at 11/22/20934 enoxaparin (LOVENOX) syringe 30 mg 30 mg Subcutaneous Daily Kendra Ingram DO 30 mg at 11/22/202135 famotidine (PEPCID) tablet 20 mg 20 mg Oral Nightly Kendra Ingram DO 20 mg at 11/22/202135 folic acid (FOLVITE) tablet 1 mg 1 mg Oral Daily Christ Iqbal MD 1 mg at 11/22/20934 guaiFENesin (MUCINEX) 12 hr tablet 600 mg 600 mg Oral Q12H BRYAN Kendra Ingram DO 600 mg at 11/22/202135 metoprolol (LOPRESSOR) injection 5 mg 5 mg Intravenous Q6H PRN Nicky Soriano PA-C Or hydrALAZINE (APRESOLINE) injection 10 mg 10 mg Intravenous Q6H PRN Nicky Soriano PA-C hydrALAZINE (APRESOLINE) injection 5 mg 5 mg Intravenous Q15 Min PRN Ann Marie Cooper MD HYDROcodone-acetaminophen (NORCO) 5-325 mg per tablet 1-2 tablet 1-2 tablet Oral Q4H PRN Nicky Soriano PA-C 2 tablet at 11/23/20 0311 ipratropium-albuteroL (DUO-NEB) 0.5-2.5 mg/3 ml nebulizer solution 3 mL 3 mL Inhalation 4x daily Jonathan Geller DO 3 mL at 11/22/20 1908 ipratropium-albuteroL (DUO-NEB) 0.5-2.5 mg/3 ml nebulizer solution 3 mL 3 mL Inhalation Q2H PRN Kendra Ingram DO lactated Ringers infusion 25 mL/hr Intravenous Continuous Dl Patiño MD Stopped at 11/22/20 1200 lactated Ringers infusion 25 mL/hr Intravenous Continuous Ann Marie Cooper MD Stopped at 11/22/20 1200 melatonin Tab 5 mg 5 mg Oral Nightly PRN Christ Iqbal MD 5 mg at 11/11/202047 naloxone (NARCAN) injection 0.1 mg 0.1 mg Intravenous PRN Nicky Soriano PA-C And naloxone (NARCAN) injection 0.4 mg 0.4 mg Intravenous PRN Nicky Soriano PA-C naloxone (NARCAN) injection 0.1 mg 0.1 mg Intravenous PRN Ann Marie Cooper MD And naloxone (NARCAN) injection 0.4 mg 0.4 mg Intravenous PRN Ann Marie Cooper MD nitroGLYCERIN 50 mg in dextrose (D5W) 250 mL infusion 0-200 mcg/min Intravenous Continuous PRN Nicky Soriano PA-C ondansetron (ZOFRAN-ODT) disintegrating tablet 4 mg 4 mg Oral Q6H PRN Christ Iqbal MD 4 mg at 11/20/201948 Or ondansetron (ZOFRAN) injection 4 mg 4 mg Intravenous Q6H PRN Christ Iqbal MD senna (SENOKOT) tablet 8.6 mg 1 tablet Oral BID PRN Christ Iqbal MD 8.6 mg at 11/21/20 0955 senna-docusate (SENNA-S) 8.6-50 mg per tablet 1 tablet 1 tablet Oral BID Nicky Soriano PA-C 1 tablet at 11/22/202135 sodium chloride (PF) (NS) flush 5 mL 5 mL Intravenous PRN Christ Iqbal MD And sodium chloride (PF) (NS) flush 5 mL 5 mL Intravenous Q8H BRYAN Iqbal MD 5 mL at And sodium chloride 0.9% (NS) 0-150 mL/hr Intravenous PRN Christ Iqbal MD Stopped at 11/12/20 1012 sodium chloride (PF) (NS) flush 5 mL 5 mL Intravenous PRN Nicky Soriano PA-C 5 mL at 11/15/202024 And sodium chloride (PF) (NS) flush 5 mL 5 mL Intravenous Q8H BRYAN KIRA ShahC 5 mL at 11/23/20 0613 And sodium chloride 0.9% (NS) 0-150 mL/hr Intravenous PRN Nicky Soriano PA-C Stopped at 11/20/20 0350 traZODone (DESYREL) tablet 50 mg 50 mg Oral Nightly PRN Christ Iqbal MD 50 mg at 11/11/202047 Lab Results Component Value Date WBC 10.14 11/23/2020 HGB 7.5 (L) 11/23/2020 HCT 24.3 (L) 11/23/2020 MCV 94.6 11/23/2020 PLT 417 (H) 11/23/2020 Lab Results Component Value Date GLUCOSE 92 11/23/2020 CALCIUM 8.3 (L) 11/23/2020 NA 136 11/23/2020 K 4.1 11/23/2020 CL 102 11/23/2020 BUN 15 11/23/2020 CREATININE 0.78 11/23/2020 Cultures: As noted * Ingram Kendra FultonDO - 11/22/2020 7:50 AM EDT [facility] [place]GR[place] Assessment and Plan: 75 y.o. 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 Non-healing surgical wound Surgical wound infection S/P R TKA in [place] with subsequent ulceration over patella that was managed with lateral gastroc muscle flap and skin graft Pt still with ulcer in pretibial region Pt evaluated by Dr. Patiño, plastic surgery for management Bone scan (11/11) without evidence of osteomyelitis, showed cellulitis Holding home chronic doxycycline, pt has been on since L Hip NF 4 yrs ago Vascular consulted S/P Aortogram and balloon angioplasty of RLE (11/13) Wound cx positive for Pseudomonas and Alcaligenes, abx changed to cefepime S/P OR (11/17) for excision of ulcer, debridement of bone from patella and tibial tubercle, flap andSTSG Wound vac in place Intraop cx with Pseudomonas in broth only ID consulted for abx course Plan for plastics to expose muscle and skin graft wed (11/22) Acute Blood loss anemia Hgb ~ 9-10 on admission Acute drop to 6.9 in surgery (11/17) due to prolonged bleeding S/P 2U PRBC intraop Hgb 8.7 --> 7.9 -->7.2 post transfusion, now stable Held plavix and lovenox, resumed plavix and lovenox (11/20) Continue to monitor Transfuse for Hgb < 7 PAD ABIs showing 70-99% stenosis of R SFA and left external iliac and SFA Home Xarelto held S/P Aortogram and balloon angioplasty of RLE (11/13) Plavix, lipitor started COPD exacerbation Acute respiratory failure with hypoxia Not on O2 at baseline, requiring 4L O2 on admission Secondary to COPD exacerbation and pulm vascular congestion Pt non compliant with home inhalers Symbicort started Completed 5 day course of Azithro and prednisone Holding home lasix due to hypotension (pt takes for swelling), resume when able Duobenbs scheduled and prn IS, pulm toilet Wean O2 as able, down to 1-2L O2 (11/18) May need home O2 at discharge, pt states she will not go home with oxygen Indigestion Started pepcid PRN tums Abnormal CXR Nodular opacity at R mid lung CT chest (11/15) showed emphysema, no nodules JERICA, resolved Cr 1-1.3 on admission, unclear baseline Now resolved RA No flare currently, chronically on methotrexate Hold methotrexate for planned surgery Depression Continue home wellbutrin Hx of DVT Unclear when DVT noted, but started on Xarelto starter pack (05/2020) per pharmacy review Pt states she had an IVC filter place (05/2020) that was removed after 8 days (had for surgery) LE doppler of LLE negative for DVT Holding Xarelto currently for OR Resume when able, unclear if pt needs retirement Tobacco abuse Smokes 5 cig daily Pt stated she was done smoking and asked that we throw her cigarettes in the trash Encouraged continued cessation Pt declines NRT Code Status: Full Code Quality Measures DVT Prophylaxis: Lovenox Sims Catheter: no Disposition Discharge Location: [facility] Estimated Discharge Date: TBD, Skin graft site to be re-evalauted wed 11/22 Outpatient Testing: TBD Subjective Pt denies complaints. Pain well controlled. Plan for OR today. Review of Systems All systems have been reviewed and are negative except as noted in HPI or below Objective BP (!) 104/57 (BP Location: Right arm, Patient Position: Lying) Pulse 65 Temp 98 F (36.7 C) Resp 16 Ht 4' 11 Wt 59 kg (130 lb 1.1 oz) SpO2 96% BMI 26.27 kg/m Physical Examination General Appearance: alert, well appearing, and in no acute distress Cardiovascular: regular rate and rhythm; no murmurs, rubs, clicks or gallops; no peripheral edema Respiratory: lungs clear to auscultation bilaterally, no rhonchi or wheezes; On 1L O2 NC Abdomen: soft, non-tender, non-distended, +BS Neurological: alert, oriented x 3, normal speech; no focal neuro deficits Musculoskeletal: no deformities or joint tenderness Skin: R knee with wound vac in place, MECHE x [address] with serosanguinous drainage Psych: calm, cooperative, normal mood and affect Results/Medications Reviewed 11/22/20 7:50 AM Laboratory, Radiology, Cardiology, Medications and Transcriptions * Jose Chaney MD - 11/22/2020 7:03 AM EDT DAILY PROGRESS NOTE Patient Name: Jessica Gonzalez MR #: [id number] Assessment and Plan: 1. Right total knee replacement with chronic wound and failed flap/skin graft with exposed hardwarewith preop culture Pseudomonas/alcaligenes and now post flap revision. I think she would benefit from antibiotic treatment but the question is whether we can do oral Cipro or whether she needs intravenous treatment 2. Peripheral vascular disease post intervention for inflow improvement 3. 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 Rheumatoid arthritis-has been on hydroxychloroquine 5. COPD-currently breathing easy Disposition Comments: We will decide optimal discharge antibiotic regimen and I have had a detailed discussion with her in terms of risk benefit with intravenous antibiotic therapy versus oral Cipro and have reviewed the various side effects and for what I can gather she is leaning towards taking Cipro with monitoring of her tendon status etc.; she will probably also need chronic doxycycline for her left total hip replacement and this can be coordinated with her physicians in [place] Subjective/Objective: Perpetual Assessment: Jessica Gonzalez is a 75 y.o. female on hospital day 13 with peripheral vascular disease, COPD, rheumatoid arthritis, chronic left total hip replacement infection and right total knee replacement wound. Chief Complaint: Right leg wound HPI: Leg pain stable Review of Systems: The following system(s) were reviewed: Constitutional, GI,Skin,Respiratory Physical Examination: BP (!) 104/57 (BP Location: Right arm, Patient Position: Lying) Pulse 65 Temp 98 F (36.7 C) Resp 16 Ht 4' 11 Wt 59 kg (130 lb 1.1 oz) SpO2 96% BMI 26.27 kg/m General: NAD; Alert and oriented x3 Eyes: Conjunctiva and sclera clear Lungs: Clear without rales, rhonchi or wheezes; no increased respiratory effort Cardiovascular: RRR; no edema Abdomen: Positive bowel sounds; soft; non tender Extremities: No cyanosis or clubbing, knee postoperative Skin: No rashes or nodules; normal turgor Neurologic: No focal motor deficits Psych: Mood and affect appropriate Results/Medications Reviewed: Current Facility-Administered Medications Medication Dose Route Frequency Provider Last Rate Last Admin acetaminophen (TYLENOL) tablet 650 mg 650 mg Oral Q4H PRN Nicky Soriano PA-C 650 mg at 11/18/20 0538 Or acetaminophen (TYLENOL) solution 650 mg 650 mg Oral Q4H PRN Nicky Soriano PA-C 650 mg at 11/18/20 0030 Or acetaminophen (TYLENOL) suppository 650 mg 650 mg Rectal Q4H PRN Nicky Soriano PA-C ascorbic acid (vitamin C) (VITAMIN C) tablet 500 mg 500 mg Oral Daily Christ Iqbal MD 500 mg at 11/21/20954 atorvastatin (LIPITOR) tablet 20 mg 20 mg Oral Nightly Solomon Meade PA-C 20 mg at 11/21/202047 bisacodyL (DULCOLAX) suppository 10 mg 10 mg Rectal Daily PRN Christ Iqbal MD budesonide-formoteroL (SYMBICORT) 160-4.5 mcg/actuation inhaler 2 puff 2 puff Inhalation BID Jonathan Geller DO 2 puff at 11/21/202046 buPROPion (WELLBUTRIN SR) 12 hr tablet 150 mg 150 mg Oral BID Christ Iqbal MD 150 mg at 11/21/202049 calcium carbonate (TUMS) chewable tablet 500 mg 500 mg Oral Daily PRN Kendra Ingram DO 500 mg at 11/21/20 1002 cefePIMe-dextrose (MAXIPIME) 2 gram/50 mL IVPB 2,000 mg 2,000 mg Intravenous Q12H Jonathan Geller, DO 100 mL/hr at 11/22/20 0330 2,000 mg at 11/22/20 0330 cholecalciferol (vitamin D3) tablet 1,000 Units 1,000 Units Oral Daily Christ Iqbal MD 1,000 Units at 11/21/20 0955 clopidogreL (PLAVIX) tablet 75 mg 75 mg Oral Daily Kendra Ingram DO 75 mg at 11/21/2055 cyanocobalamin (B-12) tablet 100 mcg 100 mcg Oral Daily Christ Iqbal MD 100 mcg at 11/21/20954 enoxaparin (LOVENOX) syringe 30 mg 30 mg Subcutaneous Daily Kendra Ingram DO 30 mg at 11/21/202049 famotidine (PEPCID) tablet 20 mg 20 mg Oral Nightly Kendra Ingram DO 20 mg at 11/21/202047 folic acid (FOLVITE) tablet 1 mg 1 mg Oral Daily Christ Iqbal MD 1 mg at 11/21/20954 guaiFENesin (MUCINEX) 12 hr tablet 600 mg 600 mg Oral Q12H [facility] Kendra Ingram, DO 600 mg at 11/21/202049 metoprolol (LOPRESSOR) injection 5 mg 5 mg Intravenous Q6H PRN Nicky Soriano PA-C Or hydrALAZINE (APRESOLINE) injection 10 mg 10 mg Intravenous Q6H PRN Nicky Soriano PA-C HYDROcodone-acetaminophen (NORCO) 5-325 mg per tablet 1-2 tablet 1-2 tablet Oral Q4H PRN Nicky Soriano PA-C 2 tablet at 11/22/20 0109 ipratropium-albuteroL (DUO-NEB) 0.5-2.5 mg/3 ml nebulizer solution 3 mL 3 mL Inhalation 4x daily Jonathan Geller, DO 3 mL at 11/21/20 2000 ipratropium-albuteroL (DUO-NEB) 0.5-2.5 mg/3 ml nebulizer solution 3 mL 3 mL Inhalation Q2H PRN Kendra Ingram DO lactated Ringers infusion 25 mL/hr Intravenous Continuous Dl Patiño MD 0 mL/hr at 11/17/20 1538 New Bag at 11/17/20 153 melatonin Tab 5 mg 5 mg Oral Nightly PRN Christ Iqbal MD 5 mg at 11/11/202047 naloxone (NARCAN) injection 0.1 mg 0.1 mg Intravenous PRN Nicky Soriano PA-C And naloxone (NARCAN) injection 0.4 mg 0.4 mg Intravenous PRN Nicky Soriano PA-C nitroGLYCERIN 50 mg in dextrose (D5W) 250 mL infusion 0-200 mcg/min Intravenous Continuous PRN Nicky Soriano PA-C ondansetron (ZOFRAN-ODT) disintegrating tablet 4 mg 4 mg Oral Q6H PRN Christ Iqbal MD 4 mg at 11/20/20 194 Or ondansetron (ZOFRAN) injection 4 mg 4 mg Intravenous Q6H PRN Christ Iqbal MD senna (SENOKOT) tablet 8.6 mg 1 tablet Oral BID PRN Christ Iqbal MD 8.6 mg at 11/21/20 0955 senna-docusate (SENNA-S) 8.6-50 mg per tablet 1 tablet 1 tablet Oral BID Nicky Soriano PA-C 1 tablet at 11/21/202048 sodium chloride (PF) (NS) flush 5 mL 5 mL Intravenous PRN Christ Iqbal MD And sodium chloride (PF) (NS) flush 5 mL 5 mL Intravenous Q8H BRYAN Iqbal MD 5 mL at And sodium chloride 0.9% (NS) 0-150 mL/hr Intravenous PRN Christ Iqbal MD Stopped at 11/12/20 101 sodium chloride (PF) (NS) flush 5 mL 5 mL Intravenous PRN Nicky Soriano PA-C 5 mL at 11/15/202024 And sodium chloride (PF) (NS) flush 5 mL 5 mL Intravenous Q8H BRYAN Nicky Soriano PA-C 5 mL at 11/21/20620 And sodium chloride 0.9% (NS) 0-150 mL/hr Intravenous PRN Nicky Soriano PA-C Stopped at 11/20/20 0350 traZODone (DESYREL) tablet 50 mg 50 mg Oral Nightly PRN Christ Iqbal MD 50 mg at 11/11/202047 Lab Results Component Value Date WBC 8.75 11/22/2020 HGB 7.4 (L) 11/22/2020 HCT 23.7 (L) 11/22/2020 MCV 94.0 11/22/2020 PLT 433 (H) 11/22/2020 Lab Results Component Value Date GLUCOSE 81 11/22/2020 CALCIUM 8.6 11/22/2020 NA 137 11/22/2020 K 4.3 11/22/2020 CL 102 11/22/2020 BUN 14 11/22/2020 CREATININE 0.85 11/22/2020 Cultures: As noted * Eboni Riley LSW - 11/21/2020 3:19 PM EDT Care Management Progress Note Patient Name: Jessica Gonzalez Working Discharge Plan: [facility] (referral faxed) Agency/Destination: Other ([facility]) Transportation Plan: Transportation Type: Auto Pending/Established Referrals: At this time, Pt therapy recs remain consistent with snf dispo - and Pt requests referral be placedto [facility] [place], as Pt has been here previously for snf care. Referral faxed by this SW, nahomi Sandoval (P: [phone]/F: [phone]) currently reviewing Barriers to Discharge/Plan for Follow Up: SW following for medical clearance & anticipated snf dispo * Jose Chaney MD - 11/21/2020 8:42 AM EDT DAILY PROGRESS NOTE Patient Name: Jessiac Gonzalez MR #: [id number] Assessment and Plan: 1. Right total knee replacement with chronic wound and failed flap/skin graft with exposed hardwarewith preop culture Pseudomonas/alcaligenes and now post flap revision. I think she would benefit from antibiotic treatment but the question is whether we can do oral Cipro or whether she needs intravenous treatment 2. Peripheral vascular disease post intervention for inflow improvement 3. 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 Rheumatoid arthritis-has been on hydroxychloroquine 5. COPD-currently breathing easy Disposition Comments: We will decide optimal discharge antibiotic regimen and I have had a detailed discussion with her in terms of risk benefit with intravenous antibiotic therapy versus oral Cipro and have reviewed the various side effects and for what I can gather she is leaning towards taking Cipro with monitoring of her tendon status etc.; she will probably also need chronic doxycycline for her left total hip replacement and this can be coordinated with her physicians in [place] Subjective/Objective: Perpetual Assessment: Jessica Gonzalez is a 75 y.o. female on hospital day 12 with peripheral vascular disease, COPD, rheumatoid arthritis, chronic left total hip replacement infection and right total knee replacement wound. Chief Complaint: Right leg wound HPI: Leg pain stable Review of Systems: The following system(s) were reviewed: Constitutional, GI,Skin,Respiratory Physical Examination: BP 98/73 (BP Location: Right arm, Patient Position: Lying) Pulse 96 Temp 97.4 F (36.3 C) (Oral) Resp 18 Ht 4' 11 Wt 59 kg (130 lb 1.1 oz) SpO2 92% BMI 26.27 kg/m General: NAD; Alert and oriented x3 Eyes: Conjunctiva and sclera clear Lungs: Clear without rales, rhonchi or wheezes; no increased respiratory effort Cardiovascular: RRR; no edema Abdomen: Positive bowel sounds; soft; non tender Extremities: No cyanosis or clubbing, knee postoperative Skin: No rashes or nodules; normal turgor Neurologic: No focal motor deficits Psych: Mood and affect appropriate Results/Medications Reviewed: Current Facility-Administered Medications Medication Dose Route Frequency Provider Last Rate Last Admin acetaminophen (TYLENOL) tablet 650 mg 650 mg Oral Q4H PRN Nicky Gatz, PA-C 650 mg at 11/18/20 0538 Or acetaminophen (TYLENOL) solution 650 mg 650 mg Oral Q4H PRN Nicky Gatz, PA-C 650 mg at 11/18/20 0030 Or acetaminophen (TYLENOL) suppository 650 mg 650 mg Rectal Q4H PRN Nicky Soriano PA-C ascorbic acid (vitamin C) (VITAMIN C) tablet 500 mg 500 mg Oral Daily Christ Iqbal MD 500 mg at 11/20/20818 atorvastatin (LIPITOR) tablet 20 mg 20 mg Oral Nightly Solomon Meade PA-C 20 mg at 11/20/202151 bisacodyL (DULCOLAX) suppository 10 mg 10 mg Rectal Daily PRN Christ Iqbal MD budesonide-formoteroL (SYMBICORT) 160-4.5 mcg/actuation inhaler 2 puff 2 puff Inhalation BID Jonathan Geller DO 2 puff at 11/20/202151 buPROPion (WELLBUTRIN SR) 12 hr tablet 150 mg 150 mg Oral BID Christ Iqbal MD 150 mg at 11/20/202151 calcium carbonate (TUMS) chewable tablet 500 mg 500 mg Oral Daily PRN Kendra Ingram DO cefePIMe-dextrose (MAXIPIME) 2 gram/50 mL IVPB 2,000 mg 2,000 mg Intravenous Q12H Jonathan Geller DO 100 mL/hr at 11/21/20 0255 2,000 mg at 11/21/20254 cholecalciferol (vitamin D3) tablet 1,000 Units 1,000 Units Oral Daily Christ Iqbal MD 1,000 Units at 11/20/20818 clopidogreL (PLAVIX) tablet 75 mg 75 mg Oral Daily Kendra Ingram DO 75 mg at 11/20/20818 cyanocobalamin (B-12) tablet 100 mcg 100 mcg Oral Daily Christ Iqbal MD 100 mcg at 11/20/20818 enoxaparin (LOVENOX) syringe 30 mg 30 mg Subcutaneous Daily Kendra Ingram DO famotidine (PEPCID) tablet 20 mg 20 mg Oral Nightly Kendra Ingram DO folic acid (FOLVITE) tablet 1 mg 1 mg Oral Daily Christ Iqbal MD 1 mg at 11/20/20818 guaiFENesin (MUCINEX) 12 hr tablet 600 mg 600 mg Oral Q12H [facility] Kendra Ingram DO 600 mg at 11/20/20 2152 metoprolol (LOPRESSOR) injection 5 mg 5 mg Intravenous Q6H PRN Nicky Soriano PA-C Or hydrALAZINE (APRESOLINE) injection 10 mg 10 mg Intravenous Q6H PRN Nicky Soriano PA-C HYDROcodone-acetaminophen (NORCO) 5-325 mg per tablet 1-2 tablet 1-2 tablet Oral Q4H PRN Nicky Soriano PA-C 2 tablet at 11/21/20 0622 ipratropium-albuteroL (DUO-NEB) 0.5-2.5 mg/3 ml nebulizer solution 3 mL 3 mL Inhalation 4x daily Jonathan Geller, DO 3 mL at 11/21/20 0728 ipratropium-albuteroL (DUO-NEB) 0.5-2.5 mg/3 ml nebulizer solution 3 mL 3 mL Inhalation Q2H PRN Kendra Ingram, DO lactated Ringers infusion 25 mL/hr Intravenous Continuous Dl Patiño MD 0 mL/hr at 11/17/20 1538 New Bag at 11/17/20 1539 melatonin Tab 5 mg 5 mg Oral Nightly PRN Christ Iqbal MD 5 mg at 11/11/202047 naloxone (NARCAN) injection 0.1 mg 0.1 mg Intravenous PRN Nicky Soriano PA-C And naloxone (NARCAN) injection 0.4 mg 0.4 mg Intravenous PRN Nicky Soriano PA-C nitroGLYCERIN 50 mg in dextrose (D5W) 250 mL infusion 0-200 mcg/min Intravenous Continuous PRN Nicky Soriano PA-C ondansetron (ZOFRAN-ODT) disintegrating tablet 4 mg 4 mg Oral Q6H PRN Christ Iqbal MD 4 mg at 11/20/20 194 Or ondansetron (ZOFRAN) injection 4 mg 4 mg Intravenous Q6H PRN Christ Iqbal MD senna (SENOKOT) tablet 8.6 mg 1 tablet Oral BID PRN Christ Iqbal MD senna-docusate (SENNA-S) 8.6-50 mg per tablet 1 tablet 1 tablet Oral BID Nicky Soriano PA-C 1 tablet at 11/20/20 2152 sodium chloride (PF) (NS) flush 5 mL 5 mL Intravenous PRN Christ Iqbal MD And sodium chloride (PF) (NS) flush 5 mL 5 mL Intravenous Q8H BRYAN Iqbal MD 5 mL at 155 And sodium chloride 0.9% (NS) 0-150 mL/hr Intravenous PRN Christ Iqbal MD Stopped at 11/12/20 1012 sodium chloride (PF) (NS) flush 5 mL 5 mL Intravenous PRN Nicky Gatz, PA-C 5 mL at 11/15/202024 And sodium chloride (PF) (NS) flush 5 mL 5 mL Intravenous Q8H BRYAN Nicky Gatz, PA-C 5 mL at 11/21/20 0621 And sodium chloride 0.9% (NS) 0-150 mL/hr Intravenous PRN Nicky Gatz, PA-C Stopped at 11/20/20 0350 traZODone (DESYREL) tablet 50 mg 50 mg Oral Nightly PRN Christ Iqbal MD 50 mg at 11/11/202047 Lab Results Component Value Date WBC 10.69 11/21/2020 HGB 7.4 (L) 11/21/2020 HCT 23.2 (L) 11/21/2020 MCV 91.7 11/21/2020 PLT 394 11/21/2020 Lab Results Component Value Date GLUCOSE 80 11/21/2020 CALCIUM 8.7 11/21/2020 NA 140 11/21/2020 K 4.2 11/21/2020 CL 104 11/21/2020 BUN 16 11/21/2020 CREATININE 0.74 11/21/2020 Cultures: As noted * Kendra Ingram DO - 11/21/2020 7:38 AM EDT [facility] [place]GRESS [place] Assessment and Plan: 75 y.o. 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 Non-healing surgical wound Surgical wound infection S/P R TKA in [place] with subsequent ulceration over patella that was managed with lateral gastroc muscle flap and skin graft Pt still with ulcer in pretibial region Pt evaluated by Dr. Patiño, plastic surgery for management Bone scan (11/11) without evidence of osteomyelitis, showed cellulitis Holding home chronic doxycycline, pt has been on since L Hip NF 4 yrs ago Vascular consulted S/P Aortogram and balloon angioplasty of RLE (11/13) Wound cx positive for Pseudomonas and Alcaligenes, abx changed to cefepime S/P OR (11/17) for excision of ulcer, debridement of bone from patella and tibial tubercle, flap andSTSG Wound vac in place Intraop cx with Pseudomonas in broth only ID consulted for abx course Plan for plastics to expose muscle and skin graft wed (11/22) at the bedside Acute Blood loss anemia Hgb ~ 9-10 on admission Acute drop to 6.9 in surgery (11/17) due to prolonged bleeding S/P 2U PRBC intraop Hgb 8.7 --> 7.9 -->7.2 post transfusion, now stable Held plavix and lovenox, resumed plavix and lovenox (11/20) Continue to monitor Transfuse for Hgb < 7 PAD ABIs showing 70-99% stenosis of R SFA and left external iliac and SFA Home Xarelto held S/P Aortogram and balloon angioplasty of RLE (11/13) Plavix, lipitor started COPD exacerbation Acute respiratory failure with hypoxia Not on O2 at baseline, requiring 4L O2 on admission Secondary to COPD exacerbation and pulm vascular congestion Pt non compliant with home inhalers Symbicort started Completed 5 day course of Azithro, continue prednisone x 5 day course Holding home lasix due to hypotension (pt takes for swelling) Duobenbs scheduled and prn IS, pulm toilet Wean O2 as able, down to 1-2L O2 (11/18) May need home O2 at discharge, pt states she will not go home with oxygen Indigestion Started pepcid PRN tums Abnormal CXR Nodular opacity at R mid lung CT chest (11/15) showed emphysema, no nodules JERICA, resolved Cr 1-1.3 on admission, unclear baseline Now resolved RA No flare currently, chronically on methotrexate Hold methotrexate for planned surgery Depression Continue home wellbutrin Hx of DVT Unclear when DVT noted, but started on Xarelto starter pack (05/2020) per pharmacy review Pt states she had an IVC filter place (05/2020) that was removed after 8 days (had for surgery) LE doppler of LLE negative for DVT Holding Xarelto currently for OR 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 Complaining of some indigestion. Has been to a SNF previously ([facility] in [place], [place]) and ok with going back for a short time. Weaned to 1L O2 today. Review of Systems All systems have been reviewed and are negative except as noted in HPI or below Objective BP 107/61 (BP Location: Right arm, Patient Position: Lying) Pulse 60 Temp 97.7 F (36.5 C) (Oral) Resp 15 Ht 4' 11 Wt 59 kg (130 lb 1.1 oz) SpO2 97% BMI 26.27 kg/m Physical Examination General Appearance: alert, well appearing, and in no acute distress Cardiovascular: regular rate and rhythm; no murmurs, rubs, clicks or gallops; no peripheral edema Respiratory: lungs clear to auscultation bilaterally, no rhonchi or wheezes; On 1L O2 NC Abdomen: soft, non-tender, non-distended, +BS Neurological: alert, oriented x 3, normal speech; no focal neuro deficits Musculoskeletal: no deformities or joint tenderness Skin: R knee with wound vac in place, MECHE x [address] with serosanguinous drainage Psych: calm, cooperative, normal mood and affect Results/Medications Reviewed 11/21/20 7:38 AM Laboratory, Radiology, Cardiology, Medications and Transcriptions * Lillie Hartmann OT - 11/20/2020 7:31 PM EDT Occupational Therapy OCCUPATIONAL THERAPY TREATMENT NOTE *OT returned to assist pt back to bed after sitting up in chair over 1 hour. Skilled Therapy Needs After Discharge Anticipate Resolution of Current Assessment Limitations Including: Mechanical Barriers, Pain Are Skilled Therapy Services Needed After Discharge: Yes Intensity of Skilled Therapy: Up to 5 days per week Anticipated Duration of Skilled Therapy: Duration 10 - 30 days DME Recommendation: Bedside commode, Wheelchair, Elevating legrests on wheelchair DME Rationale: Equipment required to maintain weight bearing status per physician orders, Wheelchair - mobility limitation cannot be safely resolved with ambulatory aide, Commode - patient confined to single room, Patient's condition prevents him/her from accomplishing ADL without recommended equipment, Patient's condition creates an increased risk of safety hazard without recommended equipment, Patient will require increased level of care without recommended equipment Rehab Potential: Good, For goals Outcomes Measures Prior Function Daily Activity Raw Score: 24 Prior Function Daily Activity % Impaired: 0% AM-PAC Daily Activity Raw Score: 17 AM-PAC Daily Activity % Impaired: 50.11% Activity Tolerance Activity Tolerance: Tolerates 10 - 20 min activity with multiple rests Therapy Precautions Orthotic Devices: (post-op short leg splint per Plastics) Weight Bearing Status: X RLE: Non Wt bearing General Rehab Precautions: Fall risk Cognition Overall Cognitive Status: Within Functional Limits Arousal/Alertness: Appropriate responses to stimuli Orientation Level: Oriented X4 Executive functioning: Sequencing, Min impairment Safety Judgment: Decreased awareness of need for safety Problem Solving: Assistance required to identify errors made, Assistance required to generate solutions Attention: Attends to distracted environment Hearing Status: Hard of hearing Social Interaction: Appropriate, Cooperative Comments: No command following deficits noted during this session. Skilled Intervention Provided: verbal cues, visual cues, environmental setup/modification, patient education For: necessary precautions, increased self-awareness, increased awareness of the environment (re-direction to task) Resulting In: improved awareness of self/environment ADL LE Dressing: Maximal assist LE Dressing - Skilled Intervention Provided: verbal cues, environmental setup/modification, monitored patient's safety & tolerance, patient education LE Dressing - For: LE positioning, compensatory strategies, necessary precautions, task simplification/modification, use of figure four technique for lower body ADLs LE Dressing - Resulting In: increased insight into deficits, increased self- management of symptoms and impairments, increased upright tolerance for functional tasks Toileting: Set-up, Stand by assist (for esmer-care sitting on BSC) IADL Bed Mobility Supine to Sit: (up on BSC upon OT entrance) Sit to Supine: Stand by assist Functional Transfers Sit to Stand: Maximal assist, Dependent (unable to clear buttocks first trial) Bed to Chair Transfers: Dependent (from BSC to bed (performed hug around pt)) Sidehand: wheeled walker, elevated surface height Additional Functional Transfer Trial 2: Yes Sit to Stand Trial 2: Maximal assist Skilled Intervention Provided: verbal cues, environmental setup/modification, facilitation, monitoring patient response with activity, patient education, provided step by step instructions, decreasedstimuli For: compensatory strategies, energy conservation, efficient movement, fall prevention, necessary precautions, safety during functional task(s), pursed lip breathing Resulting In: improved awareness, improved performance, improved safety, increased insight into deficits, increased self-management of symptoms and impairments, improved adherence to precautions (decreased anxiety, able to adhere to NWB RLE) Exercise Balance Treatment Sitting Balance - Static: Independent, with back unsupported, without UE support Sitting Balance - Dynamic: Independent, without UE support, with back unsupported Sitting Balance Treatment: other (comment) (scooting towards HOB seated EOB) Skilled Intervention Provided: verbal cues, patient education For: LE positioning, necessary precautions, self-monitoring during activity Resulting in: improved functional independence, improved safety, increased upright tolerance for functional tasks Standing Balance - Static: Maximal assist, with bilateral UE support, less than 30 seconds Sidehand - Standing Static: wheeled walker Loss of Balance- Standing Static: multidirectional Standing Balance - Dynamic: Maximal assist, with bilateral UE support, 30 seconds to 1 minute Sidehand - Standing Dynamic: same manager medicaid used for static standing tasks Loss of Balance- Standing Dynamic: multidirectional Standing Balance Treatment: weight shifting left, stepping backward Skilled Intervention Provided: verbal cues, tactile cues, environmental setup/modification, facilitation, patient education For: attention to task, efficient movement, fall prevention, necessary precautions, safe use of AD and/or equipment, sequencing of movement, LE positioning, UE positioning Resulting in: increased upright tolerance for functional tasks, increased self- management of symptoms and impairments Interventions Additional Treatment Details Pt unable to maintain NWB RLE during ADL transfer, despite multi-modal cueing and maximal assistance with use of W/W. Will attempt different technique not utilizing W/W, but with therapist in front during back to bed ADL transfer. Pt anxious during transfer, requiring re-direction to task and max cueing for sequencing and problem solving to increase safety and situational awareness surrounding the ADL transfer bed to chair. Pt required cues for breathing technique and strategies due to shortness of breath and decreased O2 sats to 86% with [id number] transfer. Pt on 2L O2 via NC. Home Living Obtained Home Living and PLOF info from: Patient Lives With: Alone Type of Home: House Home Layout: One level, Laundry in basement Steps to enter home: Yes Rails to enter home: 1 rail Number of stairs to enter home: 2 Bathroom Shower/Tub: Tub/shower unit Bathroom Toilet: Standard Bathroom Equipment: Grab bars in shower, Shower chair Bathroom Accessibility: Accessible Mobility Equipment: Cane, Wheeled walker, Rollator Prior Level of Function Receives Help From: Family Level of [place] - Transfers/Ambulation/Mobility: Independent with functional transfers, Independent with household ambulation, Independent with community ambulation Level of [place] - ADLs: Independent Level of [place] - Homemaking: Independent Driving: Patient drives For complete objective data, detailed plan of care and patient education refer to: OT Evaluation flowsheet, OT Evaluation and Treatment flowsheet, OT Treatment flowsheet, patient Plan of Care, Plan of Care progress note, and Patient Education. This note stands as the current Discharge Summary upon patient discharge from the hospital or completion of Occupational Therapy Plan of Care. * Lillie Hartmann OT - 11/20/2020 7:07 PM EDT Occupational Therapy OCCUPATIONAL THERAPY RE-EVALUATION AND TREATMENT NOTE OCCUPATIONAL THERAPY RE-EVALUATION Occupational Therapy Assessment An Occupational Therapy Re-Evaluation was performed today due to a decline in the patient's condition or functional status and a change in patient's condition requiring an updated plan of care. Per RN, pt is now NWB RLE s/p gastroc muscle flap per Dr. Patiño (RN states she will have clarification for orders placed). Pt requiring significantly more assistance with all ADLs and functional mobility du e to this. Please refer to the Occupational Therapy Plan of Care for updates to previously established goals. Skilled Therapy Needs After Discharge Anticipate Resolution of Current Assessment Limitations Including: Mechanical Barriers, Pain Are Skilled Therapy Services Needed After Discharge: Yes Intensity of Skilled Therapy: Up to 5 days per week Anticipated Duration of Skilled Therapy: Duration 10 - 30 days DME Recommendation: Bedside commode, Wheelchair, Elevating legrests on wheelchair DME Rationale: Equipment required to maintain weight bearing status per physician orders, Wheelchair - mobility limitation cannot be safely resolved with ambulatory aide, Commode - patient confined to single room, Patient's condition prevents him/her from accomplishing ADL without recommended equipment, Patient's condition creates an increased risk of safety hazard without recommended equipment, Patient will require increased level of care without recommended equipment Rehab Potential: Good, For goals Outcomes Measures Prior Function Daily Activity Raw Score: 24 Prior Function Daily Activity % Impaired: 0% AM-PAC Daily Activity Raw Score: 17 AM-PAC Daily Activity % Impaired: 50.11% Activity Tolerance Activity Tolerance: Tolerates 20 - 30 min activity with multiple rests Therapy Precautions Orthotic Devices: (post-op short leg splint per Plastics) Weight Bearing Status: X RLE: Non Wt bearing General Rehab Precautions: Fall risk Cognition Overall Cognitive Status: Within Functional Limits Arousal/Alertness: Appropriate responses to stimuli Orientation Level: Oriented X4 Executive functioning: Sequencing, Planning / Organizing, Mod impairment, Insight Safety Judgment: Decreased awareness of need for safety Problem Solving: Assistance required to identify errors made, Assistance required to generate solutions, Assistance required to implement solutions Attention: Attends to quiet environment Hearing Status: Hard of hearing Social Interaction: Cooperative, Verbose, Anxious (anxiety noted during ADL transfer) Comments: Pt follows 100% 1-step commands ADL LE Dressing: Maximal assist Bed Mobility Supine to Sit: Stand by assist, Head of bed elevated Sit to Supine: (up in chair upon OT exit (plan to return 1900 back to bed)) Functional Transfers Sit to Stand: Maximal assist, Dependent (unable to clear buttocks first trial) Bed to Chair Transfers: Maximal assist Sidehand: wheeled walker, elevated surface height Additional Functional Transfer Trial 2: Yes Sit to Stand Trial 2: Maximal assist Home Living Obtained Home Living and PLOF info from: Patient Lives With: Alone Type of Home: House Home Layout: One level, Laundry in basement Steps to enter home: Yes Rails to enter home: 1 rail Number of stairs to enter home: 2 Bathroom Shower/Tub: Tub/shower unit Bathroom Toilet: Standard Bathroom Equipment: Grab bars in shower, Shower chair Bathroom Accessibility: Accessible Mobility Equipment: Cane, Wheeled walker, Rollator Prior Level of Function Receives Help From: Family Level of [place] - Transfers/Ambulation/Mobility: Independent with functional transfers, Independent with household ambulation, Independent with community ambulation Level of Mead - ADLs: Independent Level of Mead - Homemaking: Independent Driving: Patient drives OCCUPATIONAL THERAPY TREATMENT NOTE Total Treatment Time (Total Session Time): 26 Minutes Timed Code Treatment Minutes: 24 Minutes Cognitive Skills Development Skilled Intervention Provided: verbal cues, visual cues, environmental setup/modification, patient education For: necessary precautions, increased self-awareness, increased awareness of the environment (re-direction to task) Resulting In: improved awareness of self/environment Self-Care / ADL LE Dressing - Skilled Intervention Provided: verbal cues, environmental setup/modification, monitored patient's safety & tolerance, patient education LE Dressing - For: LE positioning, compensatory strategies, necessary precautions, task simplification/modification, use of figure four technique for lower body ADLs LE Dressing - Resulting In: increased insight into deficits, increased self- management of symptoms and impairments, increased upright tolerance for functional tasks Functional Transfers Skilled Intervention Provided: verbal cues, tactile cues, visual cues, environmental setup/modification, facilitation, monitoring patient response with activity, provided step by step instructions, patient education For: LE management, LE positioning, necessary precautions, UE management, UE positioning, efficientmovement, fall prevention, pursed lip breathing, safe use of AD and/or equipment, safety during functional task(s), self-monitoring during activity, sequencing of movement, compensatory strategies, controlled descent Resulting In: non-adherence to precautions, increased self-management of symptoms and impairments, increased insight into deficits Neuromuscular Reeducation Sitting Balance - Static: Independent, with back unsupported, without UE support Sitting Balance - Dynamic: Independent, without UE support, with back unsupported Standing Balance - Static: Maximal assist, with bilateral UE support, less than 30 seconds Sidehand - Standing Static: wheeled walker Loss of Balance- Standing Static: multidirectional Standing Balance - Dynamic: Maximal assist, with bilateral UE support, 30 seconds to 1 minute Sidehand - Standing Dynamic: same manager medicaid used for static standing tasks Loss of Balance- Standing Dynamic: multidirectional Standing Balance Treatment: weight shifting left, stepping backward Skilled Intervention Provided: verbal cues, tactile cues, environmental setup/modification, facilitation, patient education For: attention to task, efficient movement, fall prevention, necessary precautions, safe use of AD and/or equipment, sequencing of movement, LE positioning, UE positioning Resulting in: increased upright tolerance for functional tasks, increased self- management of symptoms and impairments Additional Treatment Details Pt unable to maintain NWB RLE during ADL transfer, despite multi-modal cueing and maximal assistance with use of W/W. Will attempt different technique not utilizing W/W, but with therapist in front during back to bed ADL transfer. Pt anxious during transfer, requiring re-direction to task and max cueing for sequencing and problem solving to increase safety and situational awareness surrounding the ADL transfer bed to chair. Pt required cues for breathing technique and strategies due to shortness of breath and decreased O2 sats to 86% with [id number] transfer. Pt on 2L O2 via NC. Past Medical History: Diagnosis Date Cancer (HCC) colon COPD (chronic obstructive pulmonary disease) (HCC) PAD (peripheral artery disease) (HCC) Pituitary abnormality (HCC) Rheumatoid aortitis Past Surgical History: Procedure Laterality Date AORTOGRAM WITH RUNOFFS POSSIBLE INTERVENTION Bilateral 11/13/2020 Procedure: AORTOGRAM BILATERAL LOWER EXTREMITY ANGIOGRAM WITH RUNOFFS POSSIBLE INTERVENTION AND OTHER PROCEDURES INDICATED; Surgeon: Percy Yanez MD; Location: [facility] Main OR; Service: Gen-Vascular FLAP ROTATION GASTROC NEMIUS N/A 11/17/2020 Procedure: MEDIAL GASTROC FLAP WITH RIGHT LEG SKIN GRAFT; Surgeon: Dl Patiño MD; Location: [facility] Main OR; Service: Plastics JOINT REPLACEMENT ORTHOPEDIC SURGERY right knee, left hip For complete objective data, detailed plan of care and patient education refer to: OT Evaluation flowsheet, OT Evaluation and Treatment flowsheet, OT Treatment flowsheet, patient Plan of Care, Plan of Care progress note, and Patient Education. This note stands as the current Discharge Summary upon patient discharge from the hospital or completion of Occupational Therapy Plan of Care. * Jeffrey Hanson RN - 11/20/2020 1:02 PM EDT Care Management Progress Note Patient Name: Jessica Gonzalez Working Discharge Plan: D/C Disposition: Home Health Care Services Agency/Destination: Other ([facility]) Transportation Plan: Transportation Type: Auto Pending/Established Referrals: MARIA ANTONIA called [facility], to confirm service. Voice Message left with Gary and requested a return call. Barriers to Discharge/Plan for Follow Up: Medical clearance - wound eval Wed. Waiting for a call back from Gary from [facility] order to resume care F/U with PT/OT recs. UPDATE 15:00 CM received a call from [facility] who said the pt is not current with their complany. CM secure chatted [facility] and was told is not current with [facility] CM called and spoke with Wade (liaison) from [facility] who provided the name of [employer] [facility] who is on herapplication as the HH provider. CM called [facility] who say the pt is not current with their company but suggested for CM to call [facility] in [place]. CM called [facility] and was told the pt is not current with their company. CM called and left a voice message with Alisson Gonzalez (emergency contact 1) [phone] requested a return call to confirm who is providing Ms. Gonzalez HH. CM received a call and Mr Gonzalez said he does know the name of the provider. CM called [facility] and there was no answer on this line [phone] CM will continue to seek and try to find the [facility] that has been providing service to Ms. Gonzalez. * Ju Murillo RD - 11/20/2020 12:05 PM EDT Nutrition Care Follow Up Monitoring and Evaluation: PO intake was less than 50% at most meals Nutrition Increased Nutrient Needs related to clinical presentation as evidenced by nonhealing surgical wound. Not resolved Nutrition Intervention: Continue Meal and Snacks/ONS Nutrition Prescription: Diet: Reg Oral nutrition supplement: Boost Plus Tid Chocolate, Magic cup dinner Tube Feeding: n/a Nutrition Goals: PO intake > 50% most meals Start Date:11/20/2020 Expected End Date:11/30/2020 Nutrition Education: No needs at this time Assessment: Pertinent clinical information: back to OR this week Height: 4' 11 Current weight: 59 kg (130 lb 1.1 oz) BMI Body mass index is 26.27 kg/m . Weight hx: Wt Readings from Last 5 Encounters: 11/20/20 59 kg (130 lb 1.1 oz) 11/09/20 61.2 kg (135 lb) Current diet order: Reg w/ Boost TID, MAgic Cup 1qd Recent intake: 0-25, 25-50% Current intake does not meet estimated needs. GI Function: LBM 11/18 Labs: Recent Labs 11/20/20 0540 NA 138 K 4.2 BICARB 25 CL 103 GLUCOSE 92 BUN 17 CREATININE 0.77 Scheduled Meds: ascorbic acid (vitamin C) 500 mg Oral Daily atorvastatin 20 mg Oral Nightly budesonide-formoteroL 2 puff Inhalation BID buPROPion 150 mg Oral BID cefePIMe (MAXIPIME) IVPB 2,000 mg Intravenous Q12H cholecalciferol (vitamin D3) 1,000 Units Oral Daily clopidogreL 75 mg Oral Daily cyanocobalamin 100 mcg Oral Daily folic acid 1 mg Oral Daily guaiFENesin 600 mg Oral Q12H BRYAN ipratropium-albuteroL 3 mL Inhalation 4x daily senna-docusate 1 tablet Oral BID sodium chloride (PF) 5 mL Intravenous Q8H BRYAN sodium chloride (PF) 5 mL Intravenous Q8H BRYAN Continuous Infusions: lactated Ringers 0 (11/17/20 1538) nitroGLYCERIN sodium chloride 0.9 % Stopped (11/12/20 1012) sodium chloride 0.9 % Stopped (11/20/20 0350) Estimated Energy Needs Total Energy Estimated Needs: 2426-6563 yong Method for Estimating Needs: 25-30 yong/kg bw Total Protein Estimated Needs: 73-92 g Method for Estimating Needs: 1.2-1.5g/kg bw Ju Murillo RD, LD Clinical Dietitian [phone] * Dl Patiño MD - 11/20/2020 10:37 AM EDT POD #3 S: no complaints O: vac in place right leg, afebrile, donor ok, Hg 7.6, wbc 12859, cultures pseudomonas and alcaligens, on cefepime meche 35/40/40 cc. Back on plavix and lovenox for stents A: open wound right total knee s/p medial gastroc, PVD sp stents, COPD P plan to inspect grafts in OR on Friday.NPO after MN on Friday * Kendra Ingram - 11/20/2020 7:48 AM EDT [facility] PROGRESS NOTE Assessment and Plan: 75 y.o. 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 Non-healing surgical wound Surgical wound infection S/P R TKA in [place] with subsequent ulceration over patella that was managed with lateral gastroc muscle flap and skin graft Pt still with ulcer in pretibial region Pt evaluated by Dr. Patiño, plastic surgery for management Bone scan (11/11) without evidence of osteomyelitis, showed cellulitis Holding home chronic doxycycline, pt has been on since L Hip NF 4 yrs ago Vascular consulted S/P Aortogram and balloon angioplasty of RLE (11/13) Wound cx positive for Pseudomonas and Alcaligenes, abx changed to cefepime S/P OR (11/17) for excision of ulcer, debridement of bone from patella and tibial tubercle, flap andSTSG Wound vac in place Intraop cx with Pseudomonas in broth only ID consulted for abx course Plan for plastics to expose muscle and skin graft wed (11/22) at the bedside Acute Blood loss anemia Hgb ~ 9-10 on admission Acute drop to 6.9 in surgery (11/17) due to prolonged bleeding S/P 2U PRBC intraop Hgb 8.7 --> 7.9 -->7.2 post transfusion, now stable Held plavix and lovenox, resumed plavix and lovenox (11/20) Continue to monitor Transfuse for Hgb < 7 PAD ABIs showing 70-99% stenosis of R SFA and left external iliac and SFA Home Xarelto held S/P Aortogram and balloon angioplasty of RLE (11/13) Plavix, lipitor started COPD exacerbation Acute respiratory failure with hypoxia Not on O2 at baseline, requiring 4L O2 on admission Secondary to COPD exacerbation and pulm vascular congestion Pt non compliant with home inhalers Symbicort started Completed 5 day course of Azithro, continue prednisone x 5 day course Holding home lasix due to hypotension (pt takes for swelling) Duobenbs scheduled and prn IS, pulm toilet Wean O2 as able, down to 1-2L O2 (11/18) May need home O2 at discharge, pt states she will not go home with oxygen Abnormal CXR Nodular opacity at R mid lung CT chest (11/15) showed emphysema, no nodules JERICA, resolved Cr 1-1.3 on admission, unclear baseline Now resolved RA No flare currently, chronically on methotrexate Hold methotrexate for planned surgery Depression Continue home wellbutrin Hx of DVT Unclear when DVT noted, but started on Xarelto starter pack (05/2020) per pharmacy review Pt states she had an IVC filter place (05/2020) that was removed after 8 days (had for surgery) LE doppler of LLE negative for DVT Holding Xarelto currently for OR Resume when able, unclear if pt needs retirement Tobacco abuse Smokes 5 cig daily Pt stated she was done smoking and asked that we throw her cigarettes in the trash Encouraged continued cessation Pt declines NRT Code Status: Full Code Quality Measures DVT Prophylaxis: Lovenox Sims Catheter: no Disposition Discharge Location: Home Estimated Discharge Date: TBD, Skin graft site to be re-evalauted wed 11/22 Outpatient Testing: TBD Subjective Pt states pain is improving, wants to get out of bed. Breathing is better. Review of Systems All systems have been reviewed and are negative except as noted in HPI or below Objective BP (!) 121/52 (BP Location: Right arm, Patient Position: Lying) Pulse 69 Temp 97.9 F (36.6 C) (Oral) Resp (!) 20 Ht 4' 11 Wt 58.2 kg (128 lb 4.9 oz) SpO2 99% BMI 25.91 kg/m Physical Examination General Appearance: alert, well appearing, and in no acute distress Cardiovascular: regular rate and rhythm; no murmurs, rubs, clicks or gallops; no peripheral edema Respiratory: lungs clear to auscultation bilaterally, no rhonchi or wheezes; On 2L O2 NC Abdomen: soft, non-tender, non-distended, +BS Neurological: alert, oriented x 3, normal speech; no focal neuro deficits Musculoskeletal: no deformities or joint tenderness Skin: R knee with wound vac in place, MECHE x [address] with serosanguinous drainage Psych: calm, cooperative, normal mood and affect Results/Medications Reviewed 11/20/20 7:48 AM Laboratory, Radiology, Cardiology, Medications and Transcriptions * Taquerai Little MD - 11/20/2020 6:38 AM EDT DAILY PROGRESS NOTE Patient Name: Jessica Gonzalez MR #: [id number] Assessment and Plan: 1. Right total knee replacement with chronic wound and failed flap/skin graft with exposed hardwarewith preop culture Pseudomonas/alcaligenes and now post flap revision. I think she would benefit from antibiotic treatment but the question is whether we can do oral Cipro or whether she needs intravenous treatment 2. Peripheral vascular disease post intervention for inflow improvement 3. 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 Rheumatoid arthritis-has been on hydroxychloroquine 5. COPD-currently breathing easy Disposition Comments: We will decide optimal discharge antibiotic regimen and I have had a detailed discussion with her in terms of risk benefit with intravenous antibiotic therapy versus oral Cipro and have reviewed the various side effects and for what I can gather she is leaning towards taking Cipro with monitoring of her tendon status etc.; she will probably also need chronic doxycycline for her left total hip replacement and this can be coordinated with her physicians in [place] Subjective/Objective: Perpetual Assessment: Jessica Gonzalez is a 75 y.o. female on hospital day 11 with peripheral vascular disease, COPD, rheumatoid arthritis, chronic left total hip replacement infection and right total knee replacement wound. Chief Complaint: Right leg wound HPI: Hard of hearing, in no acute distress, discussed antibiotic therapy issues with her in detail and she seems against IV outpatient antibiotic therapy but would like to confirm over the next day or 2 Review of Systems: The following system(s) were reviewed: Constitutional, GI,Skin,Respiratory Physical Examination: BP (!) 121/52 (BP Location: Right arm, Patient Position: Lying) Pulse 69 Temp 97.9 F (36.6 C) (Oral) Resp (!) 20 Ht 4' 11 Wt 58.2 kg (128 lb 4.9 oz) SpO2 99% BMI 25.91 kg/m General: NAD; Alert and oriented x3 Eyes: Conjunctiva and sclera clear Lungs: Clear without rales, rhonchi or wheezes; no increased respiratory effort Cardiovascular: RRR; no edema Abdomen: Positive bowel sounds; soft; non tender Extremities: No cyanosis or clubbing, knee postoperative Skin: No rashes or nodules; normal turgor Neurologic: No focal motor deficits Psych: Mood and affect appropriate Results/Medications Reviewed: Current Facility-Administered Medications Medication Dose Route Frequency Provider Last Rate Last Admin acetaminophen (TYLENOL) tablet 650 mg 650 mg Oral Q4H PRN Nicky Soriano PA-C 650 mg at 11/18/20 0538 Or acetaminophen (TYLENOL) solution 650 mg 650 mg Oral Q4H PRN Nicky Soriano PA-C 650 mg at 11/18/20 0030 Or acetaminophen (TYLENOL) suppository 650 mg 650 mg Rectal Q4H PRN Nicky Soriano PA-C ascorbic acid (vitamin C) (VITAMIN C) tablet 500 mg 500 mg Oral Daily Christ Iqbal MD 500 mg at 11/19/2048 atorvastatin (LIPITOR) tablet 20 mg 20 mg Oral Nightly Solomon Meade PA-C 20 mg at 11/19/201951 bisacodyL (DULCOLAX) suppository 10 mg 10 mg Rectal Daily PRN Christ Iqbal MD budesonide-formoteroL (SYMBICORT) 160-4.5 mcg/actuation inhaler 2 puff 2 puff Inhalation BID Jonathan Geller DO 2 puff at 11/19/201952 buPROPion (WELLBUTRIN SR) 12 hr tablet 150 mg 150 mg Oral BID Christ Iqbal MD 150 mg at 11/19/201951 cefePIMe-dextrose (MAXIPIME) 2 gram/50 mL IVPB 2,000 mg 2,000 mg Intravenous Q12H Jonathan Geller DO 100 mL/hr at 11/20/20412 Rate Verify at 11/20/203 cholecalciferol (vitamin D3) tablet 1,000 Units 1,000 Units Oral Daily Christ Iqbal MD 1,000 Units at 11/19/20 0948 cyanocobalamin (B-12) tablet 100 mcg 100 mcg Oral Daily Christ Iqbal MD 100 mcg at 11/19/20947 folic acid (FOLVITE) tablet 1 mg 1 mg Oral Daily Christ Iqbal MD 1 mg at 11/19/2048 guaiFENesin (MUCINEX) 12 hr tablet 600 mg 600 mg Oral Q12H [facility] Kendra Ingram DO 600 mg at 11/19/201951 metoprolol (LOPRESSOR) injection 5 mg 5 mg Intravenous Q6H PRN Nicky Soriano PA-C Or hydrALAZINE (APRESOLINE) injection 10 mg 10 mg Intravenous Q6H PRN Nicky Soriano PA-C HYDROcodone-acetaminophen (NORCO) 5-325 mg per tablet 1-2 tablet 1-2 tablet Oral Q4H PRN Nicky Soriano PA-C 2 tablet at 11/20/20 0357 ipratropium-albuteroL (DUO-NEB) 0.5-2.5 mg/3 ml nebulizer solution 3 mL 3 mL Inhalation 4x daily Jonathan Geller DO 3 mL at 11/19/20 192 ipratropium-albuteroL (DUO-NEB) 0.5-2.5 mg/3 ml nebulizer solution 3 mL 3 mL Inhalation Q2H PRN Kendra Ingram DO lactated Ringers infusion 25 mL/hr Intravenous Continuous Dl Patiño MD 0 mL/hr at 11/17/20 1538 New Bag at 11/17/20 1539 melatonin Tab 5 mg 5 mg Oral Nightly PRN Christ Iqbal MD 5 mg at 11/11/202047 naloxone (NARCAN) injection 0.1 mg 0.1 mg Intravenous PRN Nicky Soriano PA-C And naloxone (NARCAN) injection 0.4 mg 0.4 mg Intravenous PRN Nicky Soriano PA-C nitroGLYCERIN 50 mg in dextrose (D5W) 250 mL infusion 0-200 mcg/min Intravenous Continuous PRN KIRA ShahC ondansetron (ZOFRAN-ODT) disintegrating tablet 4 mg 4 mg Oral Q6H PRN Christ Iqbal MD 4 mg at 11/19/20 1458 Or ondansetron (ZOFRAN) injection 4 mg 4 mg Intravenous Q6H PRN Christ Iqbal MD predniSONE (DELTASONE) tablet 40 mg 40 mg Oral Daily with breakfast Kendra Ingram DO 40 mg at 11/19/20 0947 senna (SENOKOT) tablet 8.6 mg 1 tablet Oral BID PRN Christ Iqbal MD senna-docusate (SENNA-S) 8.6-50 mg per tablet 1 tablet 1 tablet Oral BID Nicky Soriano PA-C 1 tablet at 11/19/201950 sodium chloride (PF) (NS) flush 5 mL 5 mL Intravenous PRN Christ Iqbal MD And sodium chloride (PF) (NS) flush 5 mL 5 mL Intravenous Q8H BRYAN Iqbal MD 5 mL at 400 And sodium chloride 0.9% (NS) 0-150 mL/hr Intravenous PRN Christ Iqbal MD Stopped at 11/12/20 1012 sodium chloride (PF) (NS) flush 5 mL 5 mL Intravenous PRN Nicky Soriano PA-C 5 mL at 11/15/202024 And sodium chloride (PF) (NS) flush 5 mL 5 mL Intravenous Q8H BRYAN Nicky Soriano PA-C 5 mL at 11/19/201951 And sodium chloride 0.9% (NS) 0-150 mL/hr Intravenous PRN PRIYA Shah-C Stopped at 11/20/20 0350 traZODone (DESYREL) tablet 50 mg 50 mg Oral Nightly PRN Christ Iqbal MD 50 mg at 11/11/202047 Lab Results Component Value Date WBC 12.61 (H) 11/19/2020 HGB 7.3 (L) 11/19/2020 HCT 23.1 (L) 11/19/2020 MCV 93.1 11/19/2020 PLT 320 11/19/2020 Lab Results Component Value Date GLUCOSE 88 11/19/2020 CALCIUM 8.4 11/19/2020 NA 138 11/19/2020 K 4.2 11/19/2020 CL 104 11/19/2020 BUN 20 11/19/2020 CREATININE 0.76 11/19/2020 Cultures: As noted Radiology: CT Chest Without Contrast Preliminary Result 1. Trace bilateral pleural effusions. Minimal dependent atelectasis. 2. Mild emphysema. 3. Large nonspecific right glenohumeral joint effusion. Severe glenohumeral joint arthropathy. /s Workstation ID: [id number] XR OR Angio Add Final Result XR Chest 1 View Final Result 1. Mild pulmonary vascular congestion. 2. Apparent nodular opacity projecting at the right mid lung. It is unclear if this is associated with a rib shadow or is a parenchymal finding. Recommend further evaluation with nonemergent chest CT. Workstation ID: [id number] NM White Blood Cell Prep Final Result NM Bone Marrow Limited Final Result Multiple focal soft tissue ulcerations anterior to the knee as well as along the posterolateral andanterolateral aspects of the right lower leg with associated tagged white blood cell accumulation suggesting focal areas of cellulitis. Indeterminate focal area of white blood cell scan accumulation in the region of the posterior fossamay represent reactive popliteal lymphadenopathy. Another focal indeterminate area of white blood cell scan accumulation posterior to the lateral femoral condyle in the area of joint effusion. This is nonspecific. Right total knee arthroplasty without definitive evidence of acute infection of the prosthesis withloosening. No evidence of abnormal uptake on bone marrow imaging. Possible uptake within heterotopic bone in the region of the infrapatellar tendon on white blood cell scan imaging may represent infection of the heterotopic bone or joint (cutout). ISIDORO/kelly Workstation ID: [id number] NM White Blood Cell SPECT CT Single Area Single Day Final Result Multiple focal soft tissue ulcerations anterior to the knee as well as along the posterolateral andanterolateral aspects of the right lower leg with associated tagged white blood cell accumulation suggesting focal areas of cellulitis. Indeterminate focal area of white blood cell scan accumulation in the region of the posterior fossamay represent reactive popliteal lymphadenopathy. Another focal indeterminate area of white blood cell scan accumulation posterior to the lateral femoral condyle in the area of joint effusion. This is nonspecific. Right total knee arthroplasty without definitive evidence of acute infection of the prosthesis withloosening. No evidence of abnormal uptake on bone marrow imaging. Possible uptake within heterotopic bone in the region of the infrapatellar tendon on white blood cell scan imaging may represent infection of the heterotopic bone or joint (cutout). VK/kelly Workstation ID: [id number] Ultrasound duplex arterial legs bilat Final Result US Doppler ankle/brachial index Final Result US Duplex Venous Leg LEFT Final Result XR Knee Right 2 Views (Standard) Final Result 1. Changes of prior right knee arthroplasty no evidence of hardware failure or loosening. 2. Inferior position of the patella raising the possibility of quadriceps tendon injury. 3. No acute fracture. 4. Anterior soft tissue swelling and irregularity. Workstation ID: [id number] Taqueria Little MD; pager * Dara Wheeler, RN - 11/19/2020 6:00 PM EDT Care Management Progress Note Patient Name: Jessica Gonzalez Working Discharge Plan: D/C Disposition: Home Health Care Services Agency/Destination: Other ([facility]) Transportation Plan: Transportation Type: Auto Pending/Established Referrals: Spoke with pt at bedside. States she already has HH through [facility], SN and PT. Will need to verify agency and services during regular business hours. States she had a [employer] wound vac [employer] and this home vac is at her home now. She believes Dr. Patiño intends to discontinue the wound vac prior to her discharge. Barriers to Discharge/Plan for Follow Up: Medical clearance - wound eval Wed. Verify agency and services. [facility] order to resume care. Follow for updated post op PT/OT recs. * Kendra Ingram, DO - 11/19/2020 7:44 AM EDT [facility] [place]GRESS [place] Assessment and Plan: 75 y.o. female patient of Stuart Zamora, DO with history of colon CA s/p partial colectomy, COPD, NF L hip s/p replacement, TKA complicated by infection requiring debridement and grafting presented with nonhealing surgical wound. Non-healing surgical wound Surgical wound infection S/P R TKA in [place] with subsequent ulceration over patella that was managed with lateral gastroc muscle flap and skin graft Pt still with ulcer in pretibial region Pt evaluated by Dr. Patiño, plastic surgery for management Bone scan (11/11) without evidence of osteomyelitis, showed cellulitis Holding home chronic doxycycline, pt has been on since L Hip NF 4 yrs ago Vascular consulted S/P Aortogram and balloon angioplasty of RLE (11/13) Wound cx positive for Pseudomonas and Alcaligenes, abx changed to cefepime S/P OR (11/17) for excision of ulcer, debridement of bone from patella and tibial tubercle, flap andSTSG Wound vac in place Intraop cx NGTD ID consulted for abx course Plan for plastics to expose muscle and skin graft wed (11/22) at the bedside Acute Blood loss anemia Hgb ~ 9-10 on admission Acute drop to 6.9 in surgery (11/17) due to prolonged bleeding S/P 2U PRBC intraop Hgb 8.7 --> 7.9 -->7.2 post transfusion Holding plavix and lovenox, would hold for another day and re-eval (11/20) as Hgb continues to trenddown Continue to monitor Transfuse for Hgb < 7 PAD ABIs showing 70-99% stenosis of R SFA and left external iliac and SFA Home Xarelto held S/P Aortogram and balloon angioplasty of RLE (11/13) Plavix, lipitor started, plavix held (11/18) due to acute blood loss anemia COPD exacerbation Acute respiratory failure with hypoxia Not on O2 at baseline, requiring 4L O2 on admission Secondary to COPD exacerbation and pulm vascular congestion Pt non compliant with home inhalers Symbicort started Completed 5 day course of Azithro, continue prednisone x 5 day course Holding home lasix due to hypotension (pt takes for swelling) Duobenbs scheduled and prn IS, pulm toilet Wean O2 as able, down to 1-2L O2 (11/18) May need home O2 at discharge, pt states she will not go home with oxygen Abnormal CXR Nodular opacity at R mid lung CT chest (11/15) showed emphysema, no nodules JERICA, resolved Cr 1-1.3 on admission, unclear baseline Now resolved RA No flare currently, chronically on methotrexate Hold methotrexate for planned surgery Depression Continue home wellbutrin Hx of DVT Unclear when DVT noted, but started on Xarelto starter pack (05/2020) per pharmacy review Recent LE doppler of LLE negative for DVT Holding Xarelto currently for OR Resume when able Tobacco abuse Smokes 5 cig daily Pt stated she was done smoking and asked that we throw her cigarettes in the trash Encouraged continued cessation Pt declines NRT Code Status: Full Code Quality Measures DVT Prophylaxis: Lovenox Sims Catheter: no Disposition Discharge Location: Home Estimated Discharge Date: TBD, Skin graft site to be re-evalauted wed 11/22 Outpatient Testing: TBD Subjective Pt with pain getting up to bedside commode, but has not stayed on top of pain meds. Tolerating diet. Review of Systems All systems have been reviewed and are negative except as noted in HPI or below Objective BP 112/61 (BP Location: Right arm, Patient Position: Lying) Pulse (!) 59 Temp 97.9 F (36.6 C) (Oral) Resp 16 Ht 4' 11 Wt 58.2 kg (128 lb 4.9 oz) SpO2 100% BMI 25.91 kg/m Physical Examination General Appearance: alert, well appearing, and in no acute distress Cardiovascular: regular rate and rhythm; no murmurs, rubs, clicks or gallops; no peripheral edema Respiratory: lungs clear to auscultation bilaterally, no rhonchi or wheezes; On 2L O2 NC Abdomen: soft, non-tender, non-distended, +BS Neurological: alert, oriented x 3, normal speech; no focal neuro deficits Musculoskeletal: no deformities or joint tenderness Skin: R knee with wound vac in place, MECHE x [address] with serosanguinous drainage Psych: calm, cooperative, normal mood and affect Results/Medications Reviewed 11/19/20 7:44 AM Laboratory, Radiology, Cardiology, Medications and Transcriptions * Dl Patiño MD - 11/18/2020 10:05 AM EDT POD #1 S: no complaints O: Hg 8.7 wbc 8000, JPs 130/25/40 afebrile, cultures -A. Faecalis, pseudomonas, donor site taken down to xeroform.. appears satisfactory, vac in place over gastroc flap right leg, on Maxipen, Plavix and Lovenox on hold until tomorrow because of significant bleeding Intraop A: PVD, COPD, open wound right knee with exposure of total knee P;The patient may benefit from outpatient antibiotics given implant exposure. I think an ID consultwould be beneficial. Restart Plavix tomorrow and Lovenox today, continue with SCD. Expose muscle and skin graft on Friday at the bedside. Follow Hg * Kendra Ingram DO - 11/18/2020 7:50 AM EDT [facility] [place]GRESS [place] Assessment and Plan: 75 y.o. 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 Non-healing surgical wound Surgical wound infection S/P R TKA in [place] with subsequent ulceration over patella that was managed with lateral gastroc muscle flap and skin graft Pt still with ulcer in pretibial region Pt evaluated by Dr. Patiño, plastic surgery for management Bone scan (11/11) without evidence of osteomyelitis, showed cellulitis Holding home chronic doxycycline, pt has been on since L Hip NF 4 yrs ago Vascular consulted S/P Aortogram and balloon angioplasty of RLE (11/13) Wound cx positive for Pseudomonas and Alcaligenes, abx changed to cefepime S/P OR (11/17) for excision of ulcer, debridement of bone from patella and tibial tubercle, flap andSTSG Wound vac in place Intraop cx pending ID consulted for abx course Plan for plastics to expose muscle and skin graft wed at the bedside Acute Blood loss anemia Hgb ~ 9-10 on admission Acute drop to 6.9 in surgery (11/17) due to prolonged bleeding S/P 2U PRBC intraop Hgb 8.7 --> 7.9 post transfusion Holding plavix and lovenox, ok to start 11/19 per plastic surgery Continue to monitor Transfuse for Hgb < 7 PAD ABIs showing 70-99% stenosis of R SFA and left external iliac and SFA Home Xarelto held S/P Aortogram and balloon angioplasty of RLE (11/13) Plavix, lipitor started, plavix held (11/18) due to acute blood loss anemia COPD exacerbation Acute respiratory failure with hypoxia Not on O2 at baseline, requiring 4L O2 on admission Secondary to COPD exacerbation and pulm vascular congestion Pt non compliant with home inhalers Symbicort started Azithro started (11/14), prednisone started (11/15) for COPD exacerbation, continue both x 5 day course Home lasix resumed Duobenbs scheduled and prn IS, pulm toilet Wean O2 as able, down to 1-2L O2 (11/18) May need home O2 at discharge, pt states she will not go home with oxygen Abnormal CXR Nodular opacity at R mid lung CT chest (11/15) showed emphysema, no nodules JERICA Cr 1-1.3 on admission, unclear baseline Now normalized RA No flare currently, chronically on methotrexate Hold methotrexate for planned surgery Depression Continue home wellbutrin Hx of DVT Unclear when DVT noted, but started on Xarelto starter pack (05/2020) per pharmacy review Recent LE doppler of LLE negative for DVT Holding Xarelto currently for OR Resume when able Tobacco abuse Smokes 5 cig daily Pt stated she was done smoking and asked that we throw her cigarettes in the trash Encouraged continued cessation Pt declines NRT Code Status: Full Code Quality Measures DVT Prophylaxis: Lovenox Sims Catheter: no Disposition Discharge Location: Home Estimated Discharge Date: TBD, Skin graft site to be re-evalauted wed 11/22 Outpatient Testing: TBD Subjective Pt denies complaints, pain now controlled with pain meds. Tolerating diet. Feels like breathing is better. Review of Systems All systems have been reviewed and are negative except as noted in HPI or below Objective BP (!) 106/52 (BP Location: Right arm, Patient Position: Lying) Pulse 68 Temp 98 F (36.7 C) (Oral) Resp (!) 19 Ht 4' 11 Wt 58.2 kg (128 lb 4.9 oz) SpO2 98% BMI 25.91 kg/m Physical Examination General Appearance: alert, well appearing, and in no acute distress Cardiovascular: regular rate and rhythm; no murmurs, rubs, clicks or gallops; no peripheral edema Respiratory: lungs clear to auscultation bilaterally, no rhonchi or wheezes; On 1L O2 NC Abdomen: soft, non-tender, non-distended, +BS Neurological: alert, oriented x 3, normal speech; no focal neuro deficits Musculoskeletal: no deformities or joint tenderness Skin: R knee with wound vac in place Psych: calm, cooperative Results/Medications Reviewed 11/18/20 7:50 AM Laboratory, Radiology, Cardiology, Medications and Transcriptions * Corina Delacruz OTA - 11/17/2020 8:50 AM EDT Occupational Therapy OCCUPATIONAL THERAPY TREATMENT NOTE 11/17 at 8:50am- Please refer to flowsheet for current levels of function. Skilled Therapy Needs After Discharge Anticipate Resolution of Current Assessment Limitations Including: Mechanical Barriers, Pain Are Skilled Therapy Services Needed After Discharge: Yes Intensity of Skilled Therapy: Up to 5 days per week Anticipated Duration of Skilled Therapy: Duration 10 - 30 days DME Recommendation: Bedside commode, Wheelchair, Elevating legrests on wheelchair DME Rationale: Equipment required to maintain weight bearing status per physician orders, Wheelchair - mobility limitation cannot be safely resolved with ambulatory aide, Commode - patient confined to single room, Patient's condition prevents him/her from accomplishing ADL without recommended equipment, Patient's condition creates an increased risk of safety hazard without recommended equipment, Patient will require increased level of care without recommended equipment Rehab Potential: Good, For goals Outcomes Measures Prior Function Daily Activity Raw Score: 24 Prior Function Daily Activity % Impaired: 0% Therapy Precautions Orthotic Devices: (post-op short leg splint per Plastics) Weight Bearing Status: X RLE: Non Wt bearing General Rehab Precautions: Fall risk Home Living Obtained Home Living and PLOF info from: Patient Lives With: Alone Type of Home: House Home Layout: One level, Laundry in basement Steps to enter home: Yes Rails to enter home: 1 rail Number of stairs to enter home: 2 Bathroom Shower/Tub: Tub/shower unit Bathroom Toilet: Standard Bathroom Equipment: Grab bars in shower, Shower chair Bathroom Accessibility: Accessible Mobility Equipment: Cane, Wheeled walker, Rollator Prior Level of Function Receives Help From: Family Level of Mead - Transfers/Ambulation/Mobility: Independent with functional transfers, Independent with household ambulation, Independent with community ambulation Level of Mead - ADLs: Independent Level of Mead - Homemaking: Independent Driving: Patient drives For complete objective data, detailed plan of care and patient education refer to: OT Evaluation flowsheet, OT Evaluation and Treatment flowsheet, OT Treatment flowsheet, patient Plan of Care, Plan of Care progress note, and Patient Education. This note stands as the current Discharge Summary upon patient discharge from the hospital or completion of Occupational Therapy Plan of Care. * Kendra Ingram DO - 11/17/2020 7:50 AM EDT [facility] [place] Assessment and Plan: 75 y.o. 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 Non-healing surgical wound Surgical wound infection S/P R TKA in [place] with subsequent ulceration over patella that was managed with lateral gastroc muscle flap and skin graft Pt still with ulcer in pretibial region Pt evaluated by Dr. Patiño, plastic surgery for management Bone scan (11/11) without evidence of osteomyelitis, showed cellulitis Holding home chronic doxycycline, pt has been on since L Hip NF 4 yrs ago Vascular consulted S/P Aortogram and balloon angioplasty of RLE (11/13) Wound cx positive for Pseudomonas and Alcaligenes, abx changed to cefepime Was initially scheduled for OR (11/15) but due to COPD exacerbation, will medically optimize and shewill go to surgery (11/17) if respiratory status improved. PAD ABIs showing 70-99% stenosis of R SFA and left external iliac and SFA Home Xarelto held S/P Aortogram and balloon angioplasty of RLE (11/13) Plavix, lipitor started COPD exacerbation Acute respiratory failure with hypoxia Not on O2 at baseline, requiring 4L O2 on admission Secondary to COPD exacerbation and pulm vascular congestion Pt non compliant with home inhalers Symbicort started Azithro started (11/14), prednisone started (11/15) for COPD exacerbation, continue both x 5 day course Home lasix resumed Duobenbs scheduled and prn IS, pulm toilet Wean O2 as able, down to 1-2L O2 (11/17) May need home O2 at discharge, pt states she will not go home with oxygen Abnormal CXR Nodular opacity at R mid lung CT chest (11/15) showed emphysema, no nodules JERICA Cr 1-1.3 on admission, unclear baseline Now normalized RA No flare currently, chronically on methotrexate Hold methotrexate for planned surgery Depression Continue home wellbutrin Hx of DVT Unclear when DVT noted, but started on Xarelto starter pack (05/2020) per pharmacy review Recent LE doppler of LLE negative for DVT Holding Xarelto currently for OR Resume when able Tobacco abuse Smokes 5 cig daily Pt stated she was done smoking and asked that we throw her cigarettes in the trash Encouraged continued cessation Pt declines NRT Code Status: Full Code Quality Measures DVT Prophylaxis: Lovenox Sims Catheter: no Disposition Discharge Location: Home Estimated Discharge Date: TBD pending procedures, plan for OR with plastic surgery 11/17 Outpatient Testing: TBD Subjective Pt denies complaints or pain. Denies shortness of breath. Upset that her surgery was delayed. States she will not go home with oxygen Review of Systems All systems have been reviewed and are negative except as noted in HPI or below Objective BP 120/70 (BP Location: Right arm, Patient Position: Lying) Pulse 71 Temp 98.3 F (36.8 C) (Oral) Resp 16 Ht 4' 11 Wt 61.2 kg (135 lb) SpO2 91% BMI 27.27 kg/m Physical Examination General Appearance: alert, wel appearing, and in no acute distress Cardiovascular: regular rate and rhythm; no murmurs, rubs, clicks or gallops; no peripheral edema Respiratory: lungs clear to auscultation bilaterally, no rhonchi or wheezes; On 2L O2 NC Abdomen: soft, non-tender, non-distended, +BS Neurological: alert, oriented x 3, normal speech; no focal neuro deficits Musculoskeletal: no deformities or joint tenderness Skin: R lower extremity with dressing in place C/D/I Psych: upset Results/Medications Reviewed 11/17/20 7:51 AM Laboratory, Radiology, Cardiology, Medications and Transcriptions * Rony Littlejohn OTA - 11/16/2020 10:47 AM EDT Occupational Therapy OCCUPATIONAL THERAPY TREATMENT NOTE Skilled Therapy Needs After Discharge Are Skilled Therapy Services Needed After Discharge: No DME Recommendation: None Rehab Potential: Good Outcomes Measures Prior Function Daily Activity Raw Score: 24 Prior Function Daily Activity % Impaired: 0% AM-PAC Daily Activity Raw Score: 18 AM-PAC Daily Activity % Impaired: 46.65% Activity Tolerance Activity Tolerance: Tolerates 20 - 30 min activity with multiple rests Therapy Precautions Orthotic Devices: No General Rehab Precautions: Fall risk Cognition Arousal/Alertness: Appropriate responses to stimuli Orientation Level: Oriented X4 Executive functioning: WFL Safety Judgment: Decreased awareness of need for safety Problem Solving: Assistance required to generate solutions Attention: Attends to distracted environment Social Interaction: Appropriate, Cooperative Comments: No command following deficits observed during session Skilled Intervention Provided: verbal cues, facilitation, environmental setup/modification For: increased awareness of the environment, increased self-awareness, preparing for self-care tasks Resulting In: improved activity tolerance, improved awareness of self/environment, increased interaction with environment, increased safety awareness ADL LE Dressing: Stand by assist (don/doff pull ups at EOB) LE Dressing - Skilled Intervention Provided: verbal cues, monitored patient's safety & tolerance, patient education LE Dressing - For: LE management, efficient movement, fall prevention, self- monitoring, sequencing of movement LE Dressing - Resulting In: improved performance with ADLs, improved functional independence, improved activity tolerance, increased upright tolerance for functional tasks Toileting: Stand by assist (hygiene standing at WW) Toileting - Skilled Intervention Provided: environmental setup/modification, facilitation, monitored patient's safety and tolerance Toileting - For: fall prevention, self-monitoring, compensatory strategies Toileting - Resulting In: improved performance with ADLs, improved safety, increased upright tolerance for functional tasks Functional Mobility: Stand by assist (within room ) Functional Mobility - Skilled Intervention Provided: monitoring patient response with activity, monitoring patient response with positional changes Functional Mobility - For: efficient movement, fall prevention, navigation/wayfinding, safe use of AD and/or equipment, self-monitoring during activity, safety during functional task(s) Functional Mobility - Resulting In: improved performance, improved safety, increased upright tolerance for functional task(s) Bed Mobility Supine to Sit: (Pt @ EOB initially; Left up in chair ) Functional Transfers Sit to Stand: Stand by assist Bed to Chair Transfers: Stand by assist (close supervision for line management ) Sidehand: wheeled walker Skilled Intervention Provided: verbal cues, tactile cues, facilitation, monitoring patient responsewith activity, monitoring patient response with positional changes For: efficient movement, fall prevention, increased participation in mobility task, safe use of AD and/or equipment, safety during functional task(s), self- monitoring during activity Resulting In: improved adherence to precautions, improved performance, improved safety, increased upright tolerance for functional task(s) Balance Treatment Sitting Balance - Static: Independent Sitting Balance - Dynamic: Supervision Standing Balance - Static: Supervision Standing Balance - Dynamic: Stand by assist Additional Treatment Details Therapist monitor O2 sat with activity ranging from 79-94 while changing pull ups with RN notified & changing monitor prior to functional mobility. O2 sat remains 92-97 with mobilization within room using WW. Home Living Obtained Home Living and PLOF info from: Patient Lives With: Alone Type of Home: House Home Layout: One level, Laundry in basement Steps to enter home: Yes Rails to enter home: 1 rail Number of stairs to enter home: 2 Bathroom Shower/Tub: Tub/shower unit Bathroom Toilet: Standard Bathroom Equipment: Grab bars in shower, Shower chair Bathroom Accessibility: Accessible Mobility Equipment: Cane, Wheeled walker, Rollator Prior Level of Function Receives Help From: Family Level of Mead - Transfers/Ambulation/Mobility: Independent with functional transfers, Independent with household ambulation, Independent with community ambulation Level of Mead - ADLs: Independent Level of Mead - Homemaking: Independent For complete objective data, detailed plan of care and patient education refer to: OT Evaluation flowsheet, OT Evaluation and Treatment flowsheet, OT Treatment flowsheet, patient Plan of Care, Plan of Care progress note, and Patient Education. This note stands as the current Discharge Summary upon patient discharge from the hospital or completion of Occupational Therapy Plan of Care. * Jamari Fernanda Prabhakar, RD - 11/16/2020 9:52 AM EDT Nutrition Care Follow Up Monitoring and Evaluation: PO intake was less than 25% at most meals Will follow per protocol and monitor wts, labs, and clinical course Nutrition Diagnosis: Increased Nutrient Needs related to clinical presentation as evidenced by nonhealing surgical wound. Not resolved Nutrition Intervention: Modify Medical Food Supplement Nutrition Prescription: Diet: Cardiac Oral nutrition supplement: Boost Plus Tid Chocolate, Magic cup dinner Tube Feeding: n/a Nutrition Goals: PO intake > 75% most meals Start Date:11/16/2020 Expected End Date:11/20/2020 Nutrition Education: No needs at this time Assessment: Pertinent clinical information: 75yo female Was initially scheduled for OR (11/15) but due to COPD exacerbation, will medically optimize and she will go to surgery (11/17) if respiratory status improved. Height: 4' 11 Current weight: 61.2 kg (135 lb) BMI Body mass index is 27.27 kg/m . Weight hx: noted Wt Readings from Last 5 Encounters: 11/13/20 61.2 kg (135 lb) 11/09/20 61.2 kg (135 lb) Current diet order: Cardiac Recent intake: 0-25% all meals Current intake does not meet estimated needs. Patient/family comments: Pt stated she does not like vanilla Boost and requested to change flavors.States she drinks Boost at home as well. Pt said she was not having issues with intake, but it is below 50% GI Function: LBM 11/15 Labs: Recent Labs 11/16/20 0641 NA 137 K 4.1 BICARB 25 CL 103 GLUCOSE 87 BUN 14 CREATININE 0.83 Scheduled Meds: ascorbic acid (vitamin C) 500 mg Oral Daily atorvastatin 20 mg Oral Nightly azithromycin 250 mg Oral Daily budesonide-formoteroL 2 puff Inhalation BID buPROPion 150 mg Oral BID cefePIMe (MAXIPIME) IVPB 2,000 mg Intravenous Q12H cholecalciferol (vitamin D3) 1,000 Units Oral Daily clopidogreL 75 mg Oral Daily cyanocobalamin 100 mcg Oral Daily enoxaparin (LOVENOX) injection 40 mg Subcutaneous QPM folic acid 1 mg Oral Daily furosemide 20 mg Oral Daily guaiFENesin 600 mg Oral Q12H BRYAN ipratropium-albuteroL 3 mL Inhalation 4x daily predniSONE 40 mg Oral Daily with breakfast senna-docusate 1 tablet Oral BID sodium chloride (PF) 5 mL Intravenous Q8H BRYAN sodium chloride (PF) 5 mL Intravenous Q8H BRYAN Continuous Infusions: lactated Ringers 25 mL/hr (11/15/20 1016) nitroGLYCERIN sodium chloride 0.9 % Stopped (11/12/20 1012) sodium chloride 0.9 % Estimated Energy Needs Total Energy Estimated Needs: 9419-9075 yong Method for Estimating Needs: 25-30 yong/kg bw Total Protein Estimated Needs: 73-92 g Method for Estimating Needs: 1.2-1.5g/kg bw Fernanda Kauffman MS, RD, LD * Kendra Ingram DO - 11/16/2020 7:24 AM EDT [facility] [place] Assessment and Plan: 75 y.o. 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 Non-healing surgical wound Surgical wound infection S/P R TKA in [place] with subsequent ulceration over patella that was managed with lateral gastroc muscle flap and skin graft Pt still with ulcer in pretibial region Pt evaluated by Dr. Patiño, plastic surgery for management Bone scan (11/11) without evidence of osteomyelitis, showed cellulitis Holding home chronic doxycycline, pt has been on since L Hip NF 4 yrs ago Vascular consulted S/P Aortogram and balloon angioplasty of RLE (11/13) Wound cx positive for Pseudomonas and Alcaligenes, abx changed to cefepime Was initially scheduled for OR (11/15) but due to COPD exacerbation, will medically optimize and shewill go to surgery (11/17) if respiratory status improved. PAD ABIs showing 70-99% stenosis of R SFA and left external iliac and SFA Home Xarelto held S/P Aortogram and balloon angioplasty of RLE (11/13) Plavix, lipitor started COPD exacerbation Acute respiratory failure with hypoxia Not on O2 at baseline, requiring 4L O2 on admission Secondary to COPD exacerbation and pulm vascular congestion Pt non compliant with home inhalers Symbicort started Azithro started (11/14), prednisone started (11/15) for COPD exacerbation Home lasix resumed Duobenbs scheduled and prn IS, pulm toilet Wean O2 as able, down to 2L O2 (11/15) Abnormal CXR Nodular opacity at R mid lung CT chest (11/15) showed emphysema, no nodules JERICA Cr 1-1.3 on admission, unclear baseline Now normalized RA No flare currently, chronically on methotrexate Hold methotrexate for planned surgery Depression Continue home wellbutrin Hx of DVT Unclear when DVT noted, but started on Xarelto starter pack (05/2020) per pharmacy review Recent LE doppler of LLE negative for DVT Holding Xarelto currently for OR Resume when able Tobacco abuse Smokes 5 cig daily Pt stated she was done smoking and asked that we throw her cigarettes in the trash Encouraged continued cessation Pt declines NRT Code Status: Full Code Quality Measures DVT Prophylaxis: - - enoxaparin (LOVENOX) syringe 40 mgLovenox Sims Catheter: no Disposition Discharge Location: Home Estimated Discharge Date: TBD pending procedures, plan for OR with plastic surgery 11/17 Outpatient Testing: TBD Subjective Pt denies complaints or pain. Denies shortness of breath. Still requiring supplemental O2. Review of Systems All systems have been reviewed and are negative except as noted in HPI or below Objective BP 113/68 (BP Location: Right arm, Patient Position: Lying) Pulse 72 Temp 98.3 F (36.8 C) (Oral) Resp (!) 21 Ht 4' 11 Wt 61.2 kg (135 lb) SpO2 91% BMI 27.27 kg/m Physical Examination General Appearance: alert, wel appearingl, and in no acute distress Cardiovascular: regular rate and rhythm; no murmurs, rubs, clicks or gallops; no peripheral edema Respiratory: lungs with wheezes bilaterally, no rhonchi; On 4L O2 NC Abdomen: soft, non-tender, non-distended, +BS Neurological: alert, oriented x 3, normal speech; no focal neuro deficits Musculoskeletal: no deformities or joint tenderness Skin: R lower extremity with dressing in place C/D/I Psych: normal mood and affect Results/Medications Reviewed 11/16/20 7:24 AM Laboratory, Radiology, Cardiology, Medications and Transcriptions * Dl Patiño MD - 11/15/2020 1:44 PM EDT Patient's procedure for today was canceled by Dr. Moy because of concerns regarding her respiratory status. We will try to optimize her in the next 48 hours and attempt again on Friday. * Kendra Ingram DO - 11/15/2020 7:55 AM EDT [facility] [place] Assessment and Plan: 75 y.o. 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 Non-healing surgical wound Surgical wound infection S/P R TKA in [place] with subsequent ulceration over patella that was managed with lateral gastroc muscle flap and skin graft Pt still with ulcer in pretibial region Pt evaluated by Dr. Patiño, plastic surgery for management Bone scan (11/11) without evidence of osteomyelitis, showed cellulitis Holding home chronic doxycycline, pt has been on since L Hip NF 4 yrs ago Vascular consulted S/P Aortogram and balloon angioplasty of RLE (11/13) Wound cx positive for Pseudomonas and Alcaligenes, abx changed to cefepime Was initially scheduled for OR (11/15) but due to COPD exacerbation, will medically optimize and shewill go to surgery (11/17) if respiratory status improved. PAD ABIs showing 70-99% stenosis of R SFA and left external iliac and SFA Home Xarelto held S/P Aortogram and balloon angioplasty of RLE (11/13) Plavix, lipitor started COPD exacerbation Acute respiratory failure with hypoxia Not on O2 at baseline, requiring 4L O2 on admission Secondary to COPD exacerbation and pulm vascular congestion Pt non compliant with home inhalers Symbicort started Azithro started (11/14), prednisone started (11/15) for COPD exacerbation Duobenbs scheduled and prn Home lasix resumed IS, pulm toilet Wean O2 as able, down to 2L O2 (11/15) Abnormal CXR Nodular opacity at R mid lung Recommend Chest CT, will order (11/15) JERICA Cr 1-1.3 on admission, unclear baseline Now normalized RA No flare currently, chronically on methotrexate Hold methotrexate for planned surgery Depression Continue home wellbutrin Hx of DVT Unclear when DVT noted, but started on Xarelto starter pack (05/2020) per pharmacy review Recent LE doppler of LLE negative for DVT Holding Xarelto currently for OR Resume when able Tobacco abuse Smokes 5 cig daily Pt stated she was done smoking and asked that we throw her cigarettes in the trash Encouraged continued cessation Pt declines NRT Code Status: Full Code Quality Measures DVT Prophylaxis: - Lovenox Sims Catheter: no Disposition Discharge Location: Home Estimated Discharge Date: TBD pending procedures, garcia for OR with plastic surgery 11/17 Outpatient Testing: TBD Subjective Pt denies complaints or pain, wants to go home today after surgery. Denies feeling short of breath.Still on supplemental O2 Review of Systems All systems have been reviewed and are negative except as noted in HPI or below Objective BP (!) 125/112 Pulse 84 Temp 98.6 F (37 C) (Oral) Resp (!) 27 Ht 4' 11 Wt 61.2 kg (135 lb) SpO2 94% BMI 27.27 kg/m Physical Examination General Appearance: alert, wel appearingl, and in no acute distress Cardiovascular: regular rate and rhythm; no murmurs, rubs, clicks or gallops; no peripheral edema Respiratory: lungs with wheezes bilaterally, no rhonchi; On 2L O2 NC Abdomen: soft, non-tender, non-distended, +BS Neurological: alert, oriented x 3, normal speech; no focal neuro deficits Musculoskeletal: no deformities or joint tenderness Skin: R lower extremity with dressing in place C/D/I Psych: normal mood and affect Results/Medications Reviewed 11/15/20 4:45 PM Laboratory, Radiology, Cardiology, Medications and Transcriptions * Fernanda Kauffman, RD - 11/14/2020 3:10 PM EDT Nutrition Care Follow Up Monitoring and Evaluation: Diet advancement tolerated, pt currently receiving cardiac diet Will follow per protocol and monitor wts, labs, and clinical course Nutrition Diagnosis: Increased Nutrient Needs related to clinical presentation as evidenced by nonhealing surgical wound. Nutrition Intervention: Initiate Medical Food Supplement Nutrition Prescription: Diet: Cardiac Oral nutrition supplement: Boost TID Tube Feeding: n/a Nutrition Goals: PO intake > 50% most meals Start Date:11/14/2020 Expected End Date:11/18/2020 Nutrition Education: No needs at this time Assessment: Pertinent clinical information: 75yo female s/p partial colectomy, COPD, NF L hip s/p replacement, TKA complicated by infection requiring debridement and grafting presented with nonhealing surgical wound. Bone scan (11/11) without evidence of osteomyelitis, showed cellulitis Height: 4' 11 Current weight: 61.2 kg (135 lb) BMI Body mass index is 27.27 kg/m . Weight hx: noted Wt Readings from Last 5 Encounters: 11/13/20 61.2 kg (135 lb) 11/09/20 61.2 kg (135 lb) Current diet order: cardiac Recent intake: 0-25% all meals Current intake does not meet estimated needs. GI Function: Senna scheduled Labs: Recent Labs 11/14/20 0508 NA 140 K 4.0 BICARB 30 CL 102 GLUCOSE 89 BUN 11 CREATININE 0.75 Scheduled Meds: ascorbic acid (vitamin C) 500 mg Oral Daily atorvastatin 20 mg Oral Nightly azithromycin 500 mg Intravenous Q24H budesonide-formoteroL 2 puff Inhalation BID buPROPion 150 mg Oral BID cefePIMe (MAXIPIME) IVPB 2,000 mg Intravenous Q12H cholecalciferol (vitamin D3) 1,000 Units Oral Daily [START ON 11/15/2020] clopidogreL 75 mg Oral Daily cyanocobalamin 100 mcg Oral Daily [START ON 11/15/2020] enoxaparin (LOVENOX) injection 40 mg Subcutaneous QPM folic acid 1 mg Oral Daily furosemide 20 mg Oral Daily guaiFENesin 600 mg Oral Q12H BRYAN ipratropium-albuteroL 3 mL Inhalation 4x daily senna-docusate 1 tablet Oral BID sodium chloride (PF) 5 mL Intravenous Q8H BRYAN sodium chloride (PF) 5 mL Intravenous Q8H BRYAN Continuous Infusions: nitroGLYCERIN sodium chloride 0.9 % Stopped (11/12/20 1012) sodium chloride 0.9 % Estimated Energy Needs Total Energy Estimated Needs: 0893-9649 yong Method for Estimating Needs: 25-30 yong/kg bw Total Protein Estimated Needs: 73-92 g Method for Estimating Needs: 1.2-1.5g/kg bw Fernanda Kauffman MS, RD, LD * Percy Yanez MD - 11/14/2020 9:05 AM EDT [facility] Vascular Surgery Progress Note Assessment and Plan: Jessica Gonzalez is a 75 y.o. female with nonhealing bilateral lower extremity wounds, now POD#1 s/p aortogram with balloon angioplasty of right lower extremity via left femoral access. Labs reviewed: Hb 9.8 (stable), plt 399, BUN 11, Cr 0.75. Continue neurovascular checks Continue wound care to lower extremities. Continue plavix. OK to resume AC today. OOB, encourage ambulation/activity as tolerated. OK for diet from PVS standpoint. Case to be discussed with Dr. Yanez. Subjective: Seen and examined at bedside this AM. Doing well, complains of no pain in the legs or feet. Does report mild back pain after bedrest. Tolerating diet without nausea or vomiting. Vital Signs Temp: [97.7 F (36.5 C)-98.5 F (36.9 C)] 98 F (36.7 C) Heart Rate: [67-84] 84 Resp: [16-26] 21 BP: (101-133)/(66-91) 112/76 Physical Examination General: Supine in bed, no apparent distress Extremities: warm and well perfused - bilateral upper extremity motorsensory intact - bilateral lower extremity motorsensory intact Vascular exam: - R femoral: Palpable - L femoral: Palpable - R DP: Doppler (strong) - R PT: Doppler (strong) - L DP: Doppler (strong) - L PT: Doppler (strong) Scheduled Meds: ascorbic acid (vitamin C) 500 mg Oral Daily atorvastatin 20 mg Oral Nightly budesonide-formoteroL 2 puff Inhalation BID buPROPion 150 mg Oral BID cefePIMe (MAXIPIME) IVPB 2,000 mg Intravenous Q12H cholecalciferol (vitamin D3) 1,000 Units Oral Daily clopidogreL 75 mg Oral Daily cyanocobalamin 100 mcg Oral Daily enoxaparin (LOVENOX) injection 40 mg Subcutaneous Daily folic acid 1 mg Oral Daily furosemide 20 mg Oral Daily ipratropium-albuteroL 3 mL Inhalation 4x daily senna-docusate 1 tablet Oral BID sodium chloride (PF) 5 mL Intravenous Q8H BRYAN sodium chloride (PF) 5 mL Intravenous Q8H BRYAN tiotropium bromide 2 puff Inhalation Daily Continuous Infusions: nitroGLYCERIN sodium chloride 0.9 % Stopped (11/12/20 1012) sodium chloride 0.9 % PRN Meds:.acetaminophen OR acetaminophen OR acetaminophen, bisacodyL, metoprolol OR hydrALAZINE, HYDROcodone-acetaminophen, melatonin, nalOXone AND Notify physician AND naloxone, nitroGLYCERIN, ondansetron OR ondansetron, senna, Saline lock IV AND sodium chloride (PF) AND sodium chloride (PF) AND sodium chloride 0.9 %, Saline lock IV AND sodium chloride (PF) AND sodium chloride (PF) AND sodium chloride 0.9 %, traZODone Labs Lab Results Component Value Date WBC 9.23 11/14/2020 HGB 9.8 (L) 11/14/2020 HCT 30.7 (L) 11/14/2020 MCV 89.5 11/14/2020 PLT 399 11/14/2020 Lab Results Component Value Date GLUCOSE 89 11/14/2020 CALCIUM 8.7 11/14/2020 NA 140 11/14/2020 K 4.0 11/14/2020 CL 102 11/14/2020 BUN 11 11/14/2020 CREATININE 0.75 11/14/2020 Lab Results Component Value Date INR 1.2 (H) 11/14/2020 INR 1.2 (H) 11/13/2020 INR 1.1 11/13/2020 PROTIME 14.6 (H) 11/14/2020 PROTIME 15.2 (H) 11/13/2020 PROTIME 14.2 11/13/2020 Charly Stiles DO I performed a history and physical examination, reviewed pertinent clinical data, including laboratory studies and imaging studies and discussed with the resident the management of this patient F/u in 1 mo Will need LLE intervention which she may elect to have done in [place] due to proximity to home (she [place]) I agree with the findings and assessments noted above. Percy Yanez MD, [facility] Vascular and Endovascular Surgeon * Kendra Ingram DO - 11/14/2020 7:39 AM EDT [facility] [place] Assessment and Plan: 75 y.o. 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 Non-healing surgical wound Surgical wound infection S/P R TKA in [place] with subsequent ulceration over patella that was managed with lateral gastroc muscle flap and skin graft Pt still with ulcer in pretibial region Pt evaluated by Dr. Patiño, plastic surgery for management Bone scan (11/11) without evidence of osteomyelitis, showed cellulitis Holding home chronic doxycycline, pt has been on since L Hip NF 4 yrs ago Vascular consulted S/P Aortogram and balloon angioplasty of RLE (11/13) Wound cx positive for Pseudomonas and Alcaligenes, abx changed to cefepime PAD ABIs showing 70-99% stenosis of R SFA and left external iliac and SFA Home Xarelto held S/P Aortogram and balloon angioplasty of RLE (11/13) Plavix, lipitor started COPD exacerbation Acute respiratory failure with hypoxia Not on O2 at baseline, requiring 4L O2 on admission Secondary to COPD exacerbation and pulm vascular congestion Pt non compliant with home inhalers Symbicort started Azithro started (11/14) for COPD exacerbation Duobenbs scheduled and prn Home lasix resumed IS, pulm toilet Wean O2 as able If unable to wean O2, will check Chest CT Abnormal CXR Nodular opacity at R mid lung Recommend Chest CT JERICA Cr 1-1.3 on admission, unclear baseline Now normalized RA No flare currently, chronically on methotrexate Hold methotrexate for planned surgery Depression Continue home wellbutrin Hx of DVT Unclear when DVT noted, but started on Xarelto starter pack (05/2020) per pharmacy review Recent LE doppler of LLE negative for DVT Holding Xarelto currently for OR Resume when able Tobacco abuse Pt stated she was done smoking and asked that we throw her cigarettes in the trash Encouraged continued cessation Pt declines NRT Code Status: Full Code Quality Measures DVT Prophylaxis: - - enoxaparin (LOVENOX) syringe 40 mg Sims Catheter: no Disposition Discharge Location: Home Estimated Discharge Date: TBD pending procedures, garcia for OR with plastic surgery 11/15 Outpatient Testing: TBD Subjective Pt denies complaints or pain, states Dr. Patiño said she was going to have surgery tomorrow. Denies cough or shortness of breath. On supplemental O2. States she is not going to smoke anymore. Review of Systems All systems have been reviewed and are negative except as noted in HPI or below Objective BP 112/76 (BP Location: Left arm, Patient Position: Lying) Pulse 84 Temp 98.5 F (36.9 C) (Oral) Resp (!) 21 Ht 4' 11 Wt 61.2 kg (135 lb) SpO2 (!) 87% BMI 27.27 kg/m Physical Examination General Appearance: alert, wel appearingl, and in no acute distress Cardiovascular: regular rate and rhythm; no murmurs, rubs, clicks or gallops; no peripheral edema Respiratory: lungs with wheezes bilaterally, no rhonchi; On 4L O2 NC Abdomen: soft, non-tender, non-distended, +BS Neurological: alert, oriented x 3, normal speech; no focal neuro deficits Musculoskeletal: no deformities or joint tenderness Skin: R lower extremity with dressing in place C/D/I Psych: normal mood and affect Results/Medications Reviewed 11/14/20 7:39 AM Laboratory, Radiology, Cardiology, Medications and Transcriptions * Nicky Soriano PA-C - 11/13/2020 4:19 PM EDT [facility] Vascular Surgery Progress Note Subjective: Patient seen in pacu post op. S/p R SFA and PT angioplasty. Patient lying supine. Denies pain. Vitals have been stable post-operatively Vital Signs Temp: [97.7 F (36.5 C)-98.9 F (37.2 C)] 97.7 F (36.5 C) Heart Rate: [67-82] 77 Resp: [16-22] 18 BP: (101-151)/(66-91) 101/66 Physical Examination General: no apparent distress Extremities: warm and well perfused - bilateral upper extremity motorsensory intact - bilateral lower extremity motorsensory intact Vascular exam: - R DP: palpable, strong doppler - R PT: palpable, strong doppler - L DP: heard on doppler - L PT: faint doppler signal L sheath still in place. No hematoma. Mild ecchymosis. Fullness post op resolved R knee with full thickness ulceration L calf with abrasion. Small ulcer to medial ankle Scheduled Meds: [Jul] ascorbic acid (vitamin C) 500 mg Oral Daily [Jul] atorvastatin 20 mg Oral Nightly [Jul] budesonide-formoteroL 2 puff Inhalation BID [Jul] buPROPion 150 mg Oral BID [Jul] cefePIMe (MAXIPIME) IVPB 2,000 mg Intravenous Q12H [Jul] cholecalciferol (vitamin D3) 1,000 Units Oral Daily clopidogreL 75 mg Oral Daily [Jul] cyanocobalamin 100 mcg Oral Daily [MAR Hold] enoxaparin (LOVENOX) injection 40 mg Subcutaneous Daily [JUL Hold] folic acid 1 mg Oral Daily [JUL Hold] furosemide 20 mg Oral Daily [JUL Hold] ipratropium-albuteroL 3 mL Inhalation 4x daily [JUL Hold] sodium chloride (PF) 5 mL Intravenous Q8H BRYAN [JUL Hold] tiotropium bromide 2 puff Inhalation Daily Continuous Infusions: [JUL Hold] sodium chloride 0.9 % Stopped (11/12/20 1012) sodium chloride 0.9 % 75 mL/hr (11/13/20 1327) sodium chloride 0.9 % PRN Meds:.[JUL Hold] acetaminophen, albuterol, [JUL Hold] bisacodyL, dextrose 50 % in water (D50W),hydrALAZINE, labetalol, [JUL Hold] melatonin, morphine injection, Notify Anesthesiologist AND nalOXone AND naloxone, [JUL Hold] ondansetron OR [JUL Hold] ondansetron, ondansetron, oxyCODONE, oxyCODONE- acetaminophen, [JUL Hold] senna, Saline lock IV AND [JUL Hold] sodium chloride (PF) AND [JUL Hold] sodium chloride (PF) AND [JUL Hold] sodium chloride 0.9 %, [JUL Hold] traZODone Labs Lab Results Component Value Date WBC 11.02 (H) 11/13/2020 HGB 9.6 (L) 11/13/2020 HCT 29.6 (L) 11/13/2020 MCV 88.6 11/13/2020 PLT 383 11/13/2020 Lab Results Component Value Date GLUCOSE 115 (H) 11/13/2020 CALCIUM 8.3 (L) 11/13/2020 NA 140 11/13/2020 K 3.8 11/13/2020 CL 102 11/13/2020 BUN 9 11/13/2020 CREATININE 0.74 11/13/2020 Lab Results Component Value Date INR 1.2 (H) 11/13/2020 INR 1.1 11/13/2020 INR 1.1 11/12/2020 PROTIME 15.2 (H) 11/13/2020 PROTIME 14.2 11/13/2020 PROTIME 14.2 11/12/2020 Impression and plan: Pt is a 75 y.o. female s/p R SFA and PT angioplasty - Post op labs reviewed: Cr 0.74 (pre op 0.79), Hgb 9.6 (pre op 9.7) - Continue hydration - No YENI tomorrow d/t tibial intervention - Continue BP and pain control - Continue pulse check - Pull sheath when able - Continue bed rest protocol - To VSU tonight - Continue statin. Dc ASA. Started plavix. Resume AC when able Nicky Soriano PA-C 11/13/20 * Tae Topete MD - 11/13/2020 9:45 AM EDT [facility] [place] Assessment and Plan: 75 y.o. 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 Non-healing surgical wound Surgical wound infection R TKA a few months ago in [place] with non-healing wound, seen by plastics who recommended admission XR on admission unremarkable besides possible quadriceps tendon injury Bone scan without evidence of osteomyelitis, showed cellulitis Been on chronic doxycycline (100 mg daily) since L Hip NF 4 yrs ago Vascular consulted, planning angiogram on Friday with possible plastics intervention following Wound culture growing rare pseudomonas Adjusted antibiotics to cefepime given non-healing wound and pseudomonas, hold doxycycline PAD ABIs showing 70-99% stenosis of R SFA and left external iliac and SFA Home Xarelto held for planned surgical intervention (taking for DVT prophylaxis?) Vascular planning OR Friday for angiogram with possible intervention Aspirin/statin started this admission Elevated Cr, 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 Cr 1-1.3, unclear baseline (normal Cr in 2017) Down to 0.73 Trend BMP RA No flare currently, chronically on methotrexate Hold methotrexate for planned surgery COPD without exacerbation Acute respiratory insufficiency On Bevespi and albuterol at home, which she doesn't take regularly Adjust to symbicort, spiriva while admitted Mildly hypoxic at times likely due to atelectasis from being in bed and mild volume overload seen on CXR Continue scheduled/PRN bronchodilators, resume furosemide, supplemental O2, wean with goal SpO2>88% CT chest as outpatient given nodular density on CXR Depression Continue home buproprion Code Status: Full Code Quality Measures DVT Prophylaxis: - - enoxaparin (LOVENOX) syringe 40 mg Sims Catheter: no Disposition Discharge Location: home Estimated Discharge Date: TBD pending procedures Outpatient Testing: TBD Subjective Feels well today, no shortness of breath. Requiring minimal supplemental O2. Review of Systems CV: Denies chest pain, palpitations, peripheral edema Respiratory: Denies shortness of breath, cough, wheezing Objective BP 117/70 Pulse 71 Temp 97.7 F (36.5 C) Resp (!) 23 Ht 4' 11 Wt 61.2 kg (135 lb) SpO2 91% BMI 27.27 kg/m Physical Examination General Appearance: alert, well appearing, and in no acute distress Cardiovascular: regular rate and rhythm; no murmurs, rubs, clicks or gallops; no peripheral edema Respiratory: lungs mostly clear, rare wheeze Abdomen: soft, non-tender, non-distended Neurological: alert, oriented x 3, normal speech; no focal findings or movement disorder noted Musculoskeletal: right knee wrapped, mild tenderness Skin: anterior ulcers left waterman Psych: normal mood and affect Results/Medications Reviewed 11/13/20 5:47 PM Laboratory, Radiology, Cardiology, Medications and Transcriptions * Percy Yanez MD - 11/13/2020 7:52 AM EDT [facility] Vascular Surgery Progress Note Subjective: Patient is alert, awake, and doing well with no new complaints Reports no changes pain No over night events. NPO since midnight Vital Signs Temp: [97.9 F (36.6 C)-98.9 F (37.2 C)] 97.9 F (36.6 C) Heart Rate: [71-82] 72 Resp: [15-20] 16 BP: (101-151)/(65-84) 151/84 Physical Examination General: no apparent distress Extremities: warm and well perfused - bilateral upper extremity motorsensory intact - bilateral lower extremity motorsensory intact Vascular exam: Pedal pulses heard on doppler. Non palpable R knee with full thickness ulceration L calf with abrasion. Small ulcer to medial ankle Scheduled Meds: ascorbic acid (vitamin C) 500 mg Oral Daily aspirin 81 mg Oral Daily atorvastatin 20 mg Oral Nightly budesonide-formoteroL 2 puff Inhalation BID buPROPion 150 mg Oral BID cefePIMe (MAXIPIME) IVPB 2,000 mg Intravenous Q12H cholecalciferol (vitamin D3) 1,000 Units Oral Daily cyanocobalamin 100 mcg Oral Daily enoxaparin (LOVENOX) injection 40 mg Subcutaneous Daily folic acid 1 mg Oral Daily furosemide 20 mg Oral Daily ipratropium-albuteroL 3 mL Inhalation 4x daily sodium chloride (PF) 5 mL Intravenous Q8H BRYAN tiotropium bromide 2 puff Inhalation Daily Continuous Infusions: sodium chloride 0.9 % Stopped (11/12/20 1012) sodium chloride 0.9 % 75 mL/hr (11/13/20 0307) PRN Meds:.acetaminophen, bisacodyL, dextrose 50 % in water (D50W), melatonin, ondansetron OR ondansetron, senna, Saline lock IV AND sodium chloride (PF) AND sodium chloride (PF) AND sodium chloride 0.9 %, traZODone Labs Lab Results Component Value Date WBC 9.33 11/13/2020 HGB 9.7 (L) 11/13/2020 HCT 30.0 (L) 11/13/2020 MCV 88.8 11/13/2020 PLT 371 11/13/2020 Lab Results Component Value Date GLUCOSE 88 11/13/2020 CALCIUM 8.6 11/13/2020 NA 139 11/13/2020 K 3.8 11/13/2020 CL 102 11/13/2020 BUN 11 11/13/2020 CREATININE 0.79 11/13/2020 Lab Results Component Value Date INR 1.1 11/13/2020 INR 1.1 11/12/2020 INR 1.1 11/10/2020 PROTIME 14.2 11/13/2020 PROTIME 14.2 11/12/2020 PROTIME 14.2 11/10/2020 Impression and plan: Pt is a 75 y.o. female with PVD (L>R) and non-healing BLE wounds (R>L). - Labs reviewed : Cr 0.79, Hgb 9.7, afebrile with no leukocytosis - Continue ASA and statin - Remain NPO. OR today for angio. Informed consent has already been obtained - Plastics following for wounds - Patient to be discussed with Dr. Yanez, final plan per Dr. Beau Soriano PA-C 11/13/20 I performed a history and physical examination, reviewed pertinent clinical data, including laboratory studies and imaging studies and discussed with the physician financial planning assistant the management of this patient I agree with the findings and assessments noted above. Percy Yanez MD, [facility] Vascular and Endovascular Surgeon * Jonathan Geller DO - 11/12/2020 1:42 PM EDT [facility] [place] Assessment and Plan Jessica Gonzalez is a 75 y.o. 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 Non-healing surgical wound Surgical wound infection R TKA a few months ago in [place] with non-healing wound, seen by plastics who recommended admission XR on admission unremarkable besides possible quadriceps tendon injury Bone scan without evidence of osteomyelitis, showed cellulitis Been on chronic doxycycline (100 mg daily) since L Hip NF 4 yrs ago Vascular consulted, planning angiogram on Friday with possible plastics intervention following Wound culture growing rare pseudomonas Adjust antibiotics to cefepime given non-healing wound and pseudomonas, hold doxycycline PAD ABIs showing 70-99% stenosis of R SFA and left external iliac and SFA Home Xarelto held for planned surgical intervention (taking for DVT prophylaxis?) Vascular planning OR Friday for angiogram with possible intervention Aspirin/statin started this admission Elevated Cr, 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 Cr 1-1.3, unclear baseline (normal Cr in 2017) Down to 0.73 Trend BMP RA No flare currently, chronically on methotrexate Hold methotrexate for planned surgery COPD without exacerbation Acute respiratory insufficiency On Bevespi and albuterol at home, which she doesn't take regularly Adjust to symbicort, spiriva while admitted Mildly hypoxic at times likely due to atelectasis from being in bed and mild volume overload seen on CXR Continue scheduled/PRN bronchodilators, resume furosemide, supplemental O2, wean with goal SpO2>88% CT chest as outpatient given nodular density on CXR Depression Continue home buproprion Code Status: Full Code Quality Measures DVT Prophylaxis: - - enoxaparin (LOVENOX) syringe 40 mg Sims Catheter: no Disposition Discharge Location: home Estimated Discharge Date: TBD pending procedures Outpatient Testing: TBD Subjective Feels well today, no shortness of breath. Requiring minimal supplemental O2. Review of Systems All systems have been reviewed and are negative except as noted in HPI or below Objective BP 105/66 Pulse 77 Temp 98.5 F (36.9 C) (Oral) Resp 15 Ht 4' 11 Wt 61.2 kg (135 lb) SpO2 94% BMI 27.27 kg/m Physical Examination General Appearance: alert, well appearing, and in no acute distress Cardiovascular: regular rate and rhythm; no murmurs, rubs, clicks or gallops; no peripheral edema Respiratory: lungs mostly clear, rare wheeze Abdomen: soft, non-tender, non-distended Neurological: alert, oriented x 3, normal speech; no focal findings or movement disorder noted Musculoskeletal: right knee wrapped, mild tenderness Skin: anterior ulcers left waterman Psych: normal mood and affect Results/Medications Reviewed 11/12/20 1:42 PM Laboratory, Radiology, Cardiology, Medications and Transcriptions * Percy Yanez MD - 11/12/2020 8:51 AM EDT [facility] Vascular Surgery Progress Note Subjective: Patient is alert, awake, and doing well with no new complaints Patient with questions regarding what plastics plan for OR is No over night events Vital Signs Temp: [97.6 F (36.4 C)-98.3 F (36.8 C)] 98.3 F (36.8 C) Heart Rate: [63-81] 75 Resp: [14-20] 16 BP: (120-136)/(72-82) 136/82 Physical Examination General: no apparent distress Extremities: warm and well perfused - bilateral upper extremity motorsensory intact - bilateral lower extremity motorsensory intact Vascular exam: - R DP: Multiphasic on doppler - R PT: Multiphasic on doppler - L DP: Monophasic on doppler - L PT: Monophasic on doppler RLE: Full thickness knee ulceration; dressing in place LLE: Abrasion to mid/medial calf. Small ulcer to medial ankle. Scheduled Meds: ascorbic acid (vitamin C) 500 mg Oral Daily aspirin 81 mg Oral Daily atorvastatin 20 mg Oral Nightly budesonide-formoteroL 2 puff Inhalation BID buPROPion 150 mg Oral BID ceFAZolin (ANCEF) IVPB 2,000 mg Intravenous Q8H cholecalciferol (vitamin D3) 1,000 Units Oral Daily cyanocobalamin 100 mcg Oral Daily doxycycline 100 mg Oral Daily enoxaparin (LOVENOX) injection 40 mg Subcutaneous Daily folic acid 1 mg Oral Daily furosemide 20 mg Oral Daily sodium chloride (PF) 5 mL Intravenous Q8H BRYAN tiotropium bromide 2 puff Inhalation Daily Continuous Infusions: sodium chloride 0.9 % PRN Meds:.acetaminophen, bisacodyL, ipratropium-albuteroL, melatonin, ondansetron OR ondansetron, senna, Saline lock IV AND sodium chloride (PF) AND sodium chloride (PF) AND sodium chloride 0.9 %, traZODone Labs Lab Results Component Value Date WBC 10.54 11/12/2020 HGB 9.8 (L) 11/12/2020 HCT 31.3 (L) 11/12/2020 MCV 92.3 11/12/2020 PLT 320 11/12/2020 Lab Results Component Value Date GLUCOSE 91 11/11/2020 CALCIUM 8.3 (L) 11/11/2020 NA 141 11/11/2020 K 3.5 11/11/2020 CL 106 11/11/2020 BUN 14 11/11/2020 CREATININE 0.82 11/11/2020 Lab Results Component Value Date INR 1.1 11/12/2020 INR 1.1 11/10/2020 PROTIME 14.2 11/12/2020 PROTIME 14.2 11/10/2020 Impression and plan: Pt is a 75 y.o. female with PVD (L>R) and non-healing BLE wounds (R>L). - Labs reviewed - OR tomorrow for angiogram. Informed consent has already been obtained - NPO at midnight - T/S today - Continue ASA/Lipitor - Scheduled ancef and doxy - Hold Lovenox tonight and tomorrow - Medical management per primary - Patient to be discussed with Dr. Yanez, final plan per Dr. Beau Cadena PA-C 11/12/20 I performed a history and physical examination, reviewed pertinent clinical data, including laboratory studies and imaging studies and discussed with the physician financial planning assistant the management of this patient OR for angio tomorrow targeting RLE via L femoral approach I agree with the findings and assessments noted above. Percy Yanez MD, [facility] Vascular and Endovascular Surgeon * Jonathan Geller, - 11/11/2020 12:44 PM EDT [facility] [place] Assessment and Plan Jessica Gonzalez is a 75 y.o. 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 Non-healing surgical wound Surgical wound infection R TKA a few months ago in [place] with non-healing wound, seen by plastics who recommended admission XR on admission unremarkable besides possible quadriceps tendon injury Bone scan ordered on admission to evaluate for osteomyelitis, which is pending Been on chronic doxycycline since L Hip NF 4 yrs ago; continue for now Vascular consulted, planning intervention on Friday with possible plastics intervention following PAD ABIs showing 70-99% stenosis of R SFA and left external iliac and SFA Home Xarelto held for planned surgical intervention (taking for DVT prophylaxis?) Vascular planning OR Friday for BLE angiogram with possible intervention Aspirin/statin started this admission Elevated Cr, 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 Cr 1-1.3, unclear baseline (normal Cr in 2017) Home furosemide held perioperatively Monitor RA No flare currently, chronically on methotrexate Hold methotrexate for planned surgery COPD without exacerbation Acute respiratory insufficiency On Bevespi and albuterol at home, which she doesn't take regularly Will adjust to symbicort, spiriva while admitted Mildly hypoxic at times likely due to atelectasis from being in bed Continue scheduled/PRN bronchodilators, check CXR, supplemental O2, wean with goal SpO2>88% Depression Continue home buproprion Code Status: Full Code Quality Measures DVT Prophylaxis: - Lovenox Sims Catheter: no Disposition Discharge Location: home Estimated Discharge Date: next week pending OR Outpatient Testing: TBD Subjective Morning cough as usually, mildly productive. No shortness of breath. Mild hypoxia overnight, not moving around much at all. Review of Systems All systems have been reviewed and are negative except as noted in HPI or below Objective BP 124/74 (BP Location: Right arm, Patient Position: Lying) Pulse 71 Temp 97.9 F (36.6 C) (Oral) Resp 16 Ht 4' 11 Wt 61.2 kg (135 lb) SpO2 92% BMI 27.27 kg/m Physical Examination General Appearance: alert, well appearing, and in no acute distress Cardiovascular: regular rate and rhythm; no murmurs, rubs, clicks or gallops; no peripheral edema Respiratory: lungs mostly clear without wheezes Abdomen: soft, non-tender, non-distended Neurological: alert, oriented x 3, normal speech; no focal findings or movement disorder noted Musculoskeletal: right knee wrapped, mild tenderness Skin: anterior ulcer left waterman Psych: normal mood and affect Results/Medications Reviewed 11/11/20 12:44 PM Laboratory, Radiology, Cardiology, Medications and Transcriptions * Jonathan Geller DO - 11/10/2020 1:07 PM EDT [facility] [place] Assessment and Plan Jessica Gonzalez is a 75 y.o. 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 Non-healing surgical wound Surgical wound infection R TKA a few months ago in [place] with non-healing wound, seen by plastics who recommended admission XR on admission unremarkable besides possible quadriceps tendon injury Bone scan ordered on admission Been on chronic doxycycline since L Hip NF 4 yrs ago; resumed for now Vascular consulted, planning intervention on Friday with possible plastics intervention following PAD ABIs showing 70-99% stenosis of R SFA and left external iliac and SFA Home Xarelto held for planned surgical intervention (taking for DVT prophylaxis?) Vascular planning OR Friday for BLE angiogram with possible intervention Aspirin/statin started Elevated Cr, likely CKD3 Cr 1-1.3, unclear baseline (normal Cr in 2017) Home furosemide held perioperatively Monitor RA No flare currently, chronically on methotrexate Hold methotrexate for planned surgery COPD without exacerbation On Bevespi and albuterol at home Will adjust to symbicort, spiriva while admitted Depression Continue home buproprion Code Status: Full Code Quality Measures DVT Prophylaxis: - - enoxaparin (LOVENOX) syringe 30 mg Sims Catheter: no Disposition Discharge Location: home Estimated Discharge Date: next week pending OR Outpatient Testing: TBD Subjective Feeling well today, wanting to get everything sorted out while she is admitted. Review of Systems All systems have been reviewed and are negative except as noted in HPI or below Objective BP 113/68 (BP Location: Right arm, Patient Position: Lying) Pulse 92 Temp 98.9 F (37.2 C) (Oral) Resp 16 Ht 4' 11 Wt 61.2 kg (135 lb) SpO2 (!) 85% BMI 27.27 kg/m Physical Examination General Appearance: alert, well appearing, and in no acute distress Cardiovascular: regular rate and rhythm; no murmurs, rubs, clicks or gallops; no peripheral edema Respiratory: lungs mostly clear without wheezes Abdomen: soft, non-tender, non-distended Neurological: alert, oriented x 3, normal speech; no focal findings or movement disorder noted Musculoskeletal: right knee wrapped, mild tenderness Skin: anterior ulcer left waterman Psych: normal mood and affect Results/Medications Reviewed 11/10/20 1:08 PM Laboratory, Radiology, Cardiology, Medications and Transcriptions * Itzel Kaminski RD - 11/10/2020 9:10 AM EDT Nutrition Care Initial Assessment Reason for visit: Dietitian Screen Nutrition Diagnosis: Increased Nutrient Needs related to clinical presentation as evidenced by nonhealing surgical wound. Nutrition Intervention: Monitor diet advancement . Nutrition Prescription: Diet: NPO Oral nutrition supplement: monitor need as diet advanced Tube Feeding: n/a Nutrition Goals: Source of Nutrition in next 24-48 hrs Start Date:11/10/2020 Expected End Date:11/14/2020 Nutrition Education: No needs at this time Assessment: Pertinent clinical information: history of Colon CA s/p partial colectomy,NF L hip s/p replacement,TKA complicated by infection,TKA complicated by infection requiring debridement and grafting presented with nonhealing surgical wound Past Medical History: Diagnosis Date Cancer (HCC) Pituitary abnormality (HCC) Height: 4' 11 Current weight: 61.2 kg (135 lb) BMI Body mass index is 27.27 kg/m . Weight hx: noted Wt Readings from Last 5 Encounters: 11/09/20 61.2 kg (135 lb) 11/09/20 61.2 kg (135 lb) Difficulty Chewing/Swallowing: none noted Skin Integrity: surgical wound GI Function: LBM no value Physical Appearance: no signs of malnutrition noted Labs: Recent Labs 11/10/20 0636 NA 139 K 3.4* BICARB 27 CL 102 GLUCOSE 87 BUN 23 CREATININE 1.01 Scheduled Meds: ascorbic acid (vitamin C) 500 mg Oral Daily buPROPion 150 mg Oral BID cholecalciferol (vitamin D3) 1,000 Units Oral Daily cyanocobalamin 100 mcg Oral Daily doxycycline 100 mg Oral Daily enoxaparin (LOVENOX) injection 30 mg Subcutaneous Daily folic acid 1 mg Oral Daily sodium chloride (PF) 5 mL Intravenous Q8H BRYAN Continuous Infusions: sodium chloride 0.9 % Estimated Energy Needs Total Energy Estimated Needs: [id number] yong Method for Estimating Needs: 25-30 yong/kg bw Total Protein Estimated Needs: 73-92 g Method for Estimating Needs: 1.2-1.5g/kg bw Itzel Kaminski R.D L.D [phone] documented in this [id number] Hospital course Narrative* Corina Hanson CNP - 11/29/2020 9:26 AM EDT [facility] [place] SUMMARY Jessica Gonzalez Admitted: 11/09/2020 Discharge Date: 11/29/20 PCP Handoff Recommended Outpatient Testing: none Results Pending At Discharge: none Clinical Summary Jessica Gonzalez a 75 y.o. 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 Had excision of ulcer and debridement (11/17). Now going to SNF. Non-healing surgical wound Surgical wound infection S/P R TKA in [place] with subsequent ulceration over patella that was managed with lateral gastroc muscle flap and skin graft; still with ulcer in pretibial region; chronically on PO doxy since L hip NF 4 years ago Bone scan (11/11) negative for OM, showed cellulitis Plastics and ID consulted S/P excision of ulcer, debridement of bone from patella and tibial tubercle, flap and STSG (11/17) Wound cx positive for Pseudomonas and Alcaligenes Per ID: Continue cefepime until d/c then plan for Cipro 500mg BID x3 weeks and she should follow-upwith her physicians in [place] in regard to ongoing doxycycline therapy [place] prn for pain control Ok for d/c from plastics standpoint: BID dressing to RLE graft: bacitracin, adaptic, kerlix fluffs,kerlix roll, janelle, splint Follow with plastcs in 1 week for drain removal PT/OT consulted, [facility]- Awaiting SNF, stable for discharge Follow up with plastics outpatient PAD ABIs showing 70-99% stenosis of R SFA and left external iliac and SFA Vascular sx consulted S/P Aortogram and balloon angioplasty of RLE (11/13) Recommend f/u with her vascular surgeon (Dr Dawson Baird in [place]) for LLE angiogram as she does not want to travel to [place] for this Started Plavix and Lipitor Acute Blood loss anemia Hgb ~ 9-10 on admission Decreased to 6.9 in surgery (11/17) due to prolonged bleeding S/P 2U PRBC intraop Hgb has since stablized: hgb 7.8 (11/24) Continue Plavix; resumed home Xarelto (11/26) Transfuse for Hgb < 7 Hx of DVT Unclear when DVT noted as pt does not recall ever being told she had a DVT She was started on Xarelto starter pack (05/2020) per pharmacy review Pt states she had an IVC filter placed (05/2020) prior to surgery that was removed after 8 days (after surgery) per Dr Dawson Baird ([place], [place]) LE doppler of LLE (11/20) negative for DVT Resumed Xarelto (11/26), 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 Trace bilateral pleural effusions. Minimal dependent atelectasis Pt non-compliant with home inhalers Symbicort started Completed 5 day course of Azithro and prednisone Holding home lasix due to hypotension (pt takes for swelling) Duobenbs scheduled and prn IS, pulm toilet - O2 weaned off, stable on RA Restarting lasix for any signs of fluid overload or edema i Abnormal CXR Nodular opacity at R mid lung CT chest (11/15) showed emphysema, no nodules JERICA, resolved Cr 1-1.3 on admission, unclear baseline Cr improved 0.76 (11/24) Lasix held Now resolved RA No flare currently, chronically on methotrexate Methotrexate held, restarted (to start Friday (12/01) Restarted Arava every other day Tobacco abuse Smokes 5 cig daily Pt stated she was done smoking and asked that we throw her cigarettes in the trash; Encouraged continued cessation Pt declines NRT Discharge Medications Discharge Medications New Medications Details atorvastatin 20 MG tablet Commonly known as: LIPITOR Take 1 (one) tablet (20 mg total) by mouth nightly . Quantity: 90 tablet bacitracin zinc-polymyxin B ointment Apply 1 application topically 2 (two) times a day . Quantity: 1 Tube budesonide-formoteroL 160-4.5 mcg/actuation inhaler Commonly known as: SYMBICORT Inhale 2 (two) puffs 2 (two) times a day . Quantity: 1 Inhaler calcium carbonate 200 mg calcium (500 mg) chewable tablet Commonly known as: TUMS Chew and Swallow 1 (one) tablet (500 mg total) daily as needed . Quantity: 1 tablet ciprofloxacin HCl 500 MG tablet Commonly known as: CIPRO Take 1 (one) tablet (500 mg total) by mouth 2 (two) times a day for 21 days . Quantity: 42 tablet clopidogreL 75 mg tablet Commonly known as: PLAVIX Take 1 (one) tablet (75 mg total) by mouth daily . Quantity: 90 tablet famotidine 20 MG tablet Commonly known as: PEPCID Take 1 (one) tablet (20 mg total) by mouth nightly . Quantity: 30 tablet guaiFENesin 600 mg 12 hr tablet Commonly known as: MUCINEX Take 1 (one) tablet (600 mg total) by mouth every 12 (twelve) hours . Quantity: 60 tablet HYDROcodone-acetaminophen 5-325 mg per tablet Commonly known as: NORCO Take 1 (one) tablet by mouth every 4 (four) hours as needed (Days supply per fill: 3) . Quantity: 18 tablet melatonin 5 mg Tab Take 1 (one) tablet (5 mg total) by mouth nightly as needed (Sleep) . Quantity: 1 tablet senna-docusate 8.6-50 mg Commonly known as: SENNA-S Take 1 (one) tablet by mouth 2 (two) times a day . Quantity: 60 tablet Medications To Continue Details albuterol 90 mcg/actuation inhaler Inhale 2 puffs every 6 (six) hours as needed for wheezing . ascorbic acid with ambar hips 500 MG tablet Generic drug: ascorbic acid (vitamin C) Take 500 mg by mouth daily . Bevespi Aerosphere 9-4.8 mcg Hfaa Generic drug: glycopyrrolate-formoteroL Inhale 2 puffs 2 (two) times a day . buPROPion 150 MG 12 hr tablet Commonly known as: WELLBUTRIN SR, ZYBAN Take 150 mg by mouth 2 (two) times a day . cholecalciferol (vitamin D3) 1,000 unit tablet Take 1,000 Units by mouth daily . cyanocobalamin 100 MCG tablet Commonly known as: B-12 Take 100 mcg by mouth daily . folic acid 1 MG tablet Commonly known as: FOLVITE Take 1 mg by mouth daily . leflunomide 20 MG tablet Commonly known as: ARAVA Notes to patient: First dose in the hospital (11/29) next dose at [facility] (12/01) Take 20 mg by mouth every other day . methotrexate 2.5 MG tablet Commonly known as: TREXALL Take 10 mg by mouth once a week On friday . rivaroxaban 20 mg Tab Commonly known as: XARELTO Take 20 mg by mouth every evening . Stopped Medications doxycycline hyclate 100 MG capsule Commonly known as: VIBRAMYCIN furosemide 20 MG tablet Commonly known as: LASIX Physician(s) Follow Up: Percy Yanez MD [address] [facility] [address] [id number] Follow up On 11/13/20 you had angioplasty to your R leg. Follow up with your vascular surgeon in [place] as discussed for left leg angiogram. If you decide to stay in [place], please feel free to call for follow up appt and schedule L leg angiogram. Dr. Dawson Baird [address] [address] Call Call to make follow up appointment with your vascular sugeon to discuss plans for left leg angiogram. Please discuss with Dr Baird if continued anticoagulation is needed. Dl Patiño MD [address] [facility] [address] [phone] Schedule an appointment as soon as possible for a visit in 1 week(s) Condition at Discharge: Stable Disposition: [facility] On day of discharge, I performed a final bedside evaluation including a physical exam. I reviewed discharge recommendations with the patient in person. Patient instructions, including activity, were given to the patient/family at discharge. Time spent on discharge: > 30 minutes Completed by: Corina Hanson on 11/29/20, 9:27 AM documented in this [id number] Miscellaneous Notes* Plan of Care - Twila Cat RN - 11/29/2020 3:18 AM EDT Problem: Pain Goal: Manage acute pain Outcome: Partially Met Goal: Manage chronic pain Outcome: Partially Met Goal: Reduced pain sensation Outcome: Partially Met Goal: Achievement of comfort function goal Outcome: Partially Met Problem: Falls, Risk of Goal: Absence of falls Outcome: Partially Met * Plan of Care - Michael Contreras RRT - 11/27/2020 8:05 AM EDT Problem: Breathing Pattern - Ineffective Goal: Effective breathing pattern Outcome: Partially Met * Plan of Care - Merna Hernandez RRT - 11/25/2020 7:28 AM EDT Problem: Breathing Pattern - Ineffective Goal: Effective breathing pattern Outcome: Partially Met * Quick Note - Jeramy Bloom RN - 11/24/2020 5:08 PM EDT Found order under change... Dressings will be done as ordered Patient does not have wound care orders. Patient does, however, have a zinc bacitracin order to apply to wound twice a day. It was reactivated later this morning and I just got around to doing it. The patient has a graft site and an old incision that is not closing. That old incision that was operated on is what I took to be the wound in apply to wound . When removing the JANELLE, kerlix, and 4x4s, I see there is adaptic covering the wound/incision sites. There are also the three MECHE drain insertion sites. Because of the nature of the wounds having opened, I did not remove the adaptic as it appeared to be placed by a surgeon. The patient was happy to see that the wound was not opened again.I applied bacitracin/zinc as ordered to the incision site I could see outside of the adaptic. I didnot remove the adaptic on the incision site or touch the graft site. Please place a wound care order for the site so nursing can apply dressings as desired. * Plan of Care - Gely Taveras RRT - 11/24/2020 7:12 AM EDT Problem: Breathing Pattern - Ineffective Goal: Effective breathing pattern Outcome: Partially Met * Quick Note - Shanita Roa RN - 11/23/2020 10:10 AM EDT Vac #[id number] was discontinued 6-30 in OR. [facility] [employer] notified. RLE with janelle, brace and MECHE drains x 3. * Op Note - Dl Patiño MD - 11/22/2020 12:20 PM EDT JESSICA GONZALEZ [facility] [id number] 1945 DATE OPERATIVE REPORT SURGEON DL PATIÑO MD PREOPERATIVE DIAGNOSIS Open wound, right knee. POSTOPERATIVE DIAGNOSIS Open wound, right knee. OPERATIVE PROCEDURE 1. Dressing change under anesthesia, right lower extremity. 2. Short-leg splint. ANESTHESIA MAC. DESCRIPTION OF PROCEDURE Patient was anesthetized under MAC anesthesia. The previous wound VAC dressing was removed from the patient's leg. This revealed that the medial gastroc flap and skin graft were completely taken. The posterior calf incision was healing satisfactorily. This was redressed and a short leg splint applied. The patient tolerated the procedure well and was transferred to recovery in good condition. DL PATIÑO MD D 11/22/2020 11:44 [id number] T 11/22/2020 12:18 MDW/MODL * Brief Op Note - Dl Patiño MD - 11/22/2020 11:28 AM EDT Brief Post Operative Note Patient Name: Jessica Gonzalez : 1945 (75 y.o.) Date of Service: 11/22/2020 CSN: [id number] Procedure(s): RIGHT LOWER EXTREMITY DRESSING CHANGE Pre-Operative Diagnoses: * RIGHT LOWER EXTREMITY WOUND Post-Operative Diagnoses: same Surgeon(s) and Role: * Dl Patiño MD - Primary Anesthesiologist: Ann Marie Cooper MD [employer] PRINCIPAL: Cary Vigil CRNA Warehouse Shipping Supervisor: Peewee Posada RN; Johnna Fairbanks RN Scrub Person: ST L[facility]; ST [facility] Anesthesia Specialist: Santiago Lema Operative findings: viable flap and skin graft Intra and immediate post-operative complications: none Type of anesthesia used: General Estimated blood loss: 0 mL Estimated urine output: Specimen(s): * No specimens in log * Implant(s): * No implants in log * Drain(s): Closed/Suction Drain 1 Left;Posterior;Medial Leg 15 Fr. (Active) Reassessment Unchd 11/22/20 0601 Site Assessment Clean;Dry;Intact 11/21/20 1100 Dressing Type Split gauze 11/17/20 1631 Dressing Status Clean;Dry;Intact;Occlusive 11/22/20 1015 Drainage Appearance Serosanguineous 11/21/20 1100 Status To bulb suction 11/21/20 1100 Drain Intervention Stripped 11/21/20 1100 Output 5 mL 11/22/20 0601 Closed/Suction Drain 2 Left;Posterior;Lateral Leg 15 Fr. (Active) Reassessment Unchd 11/22/20 0601 Site Assessment Clean;Dry;Intact 11/21/20 1100 Dressing Type Other (comment) 11/20/20 1956 Dressing Status Clean;Dry;Intact;Occlusive 11/22/20 1015 Drainage Appearance Serosanguineous 11/21/20 1100 Status To bulb suction 11/21/20 1100 Drain Intervention Stripped 11/21/20 1100 Output 0 mL 11/22/20 0601 Closed/Suction Drain 3 Posterior Knee 15 Fr. (Active) Reassessment Unchd 11/22/20 0601 Site Assessment Clean;Dry;Intact 11/21/20 1100 Dressing Type Split gauze 11/17/20 1631 Dressing Status Clean;Dry;Intact;Occlusive 11/22/20 1015 Drainage Appearance Serosanguineous 11/21/20 1100 Status To bulb suction 11/21/20 1100 Drain Intervention Stripped 11/21/20 1100 Output 5 mL 11/22/20 0601 Wound(s): Wound 11/13/20 Surgical Wound Groin Left (Active) Reassessment Unchd 11/21/20 1739 Dressing Status Clean;Dry;Intact 11/21/20 0915 Dressing Changed Other (Comment) 11/16/202058 Drainage Amount None 11/20/20 0745 Drainage Description VICTOR MANUEL 11/15/20 0859 Odor None 11/20/20 0745 Wound Bed Characteristics VICTOR MANUEL (Unable to assess) 11/20/20 0745 Esmer-wound Assessment Temperature WNL;Clean;Dry;Intact 11/20/20 0745 Primary Dressing Gauze pad 11/21/20 0915 Secondary Dressing Transparent film 11/21/20 0915 Wound 11/17/20 Surgical Wound Leg Right (Active) Reassessment Unchd 11/22/20 0330 Dressing Status Dry;Clean;Intact 11/22/20 0811 Drainage Amount None 11/21/20 2035 Odor None 11/22/20 0811 Wound Bed Characteristics VICTOR MANUEL (Unable to assess) 11/21/202034 Esmer-wound Assessment Temperature WNL 11/22/20 0811 Compression Dressing Janelle wrap 11/21/20 2035 Wound 11/17/20 Surgical Wound Lower Leg Right (Active) Reassessment Unchd X 11/22/20 1115 Dressing Status Clean;Dry;Intact 11/22/20 1115 Dressing Changed New 11/22/20 1115 Drainage Amount None 11/22/20 1115 Wound Bed Characteristics VICTOR MANUEL (Unable to assess) 11/19/20 1944 Compression Dressing Janelle wrap 11/19/20 1945 Dl Patiño MD 11/22/2020 11:28 AM * [facility] - Chino Chan OT - 11/22/2020 10:31 AM EDT OCCUPATIONAL THERAPY VISIT VARIANCE NOTE Attempted to see patient at this time, but unable secondary to: Patient Unavailable (comment) (Patient in the OR with plastics). Will follow up as appropriate. * Quick Note - Shanita Roa RN - 11/22/2020 10:28 AM EDT Attempted to see pt for vac dressing check to RLE, but she is currently off the unit in OR. 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 Will follow prn. * Quick Note - Love Vera, ERWIN - 11/22/2020 7:23 AM EDT Pre-operative Patient Readiness Date: 11/22/20 7:23 AM Admission:11/09/2020 Operative Intervention: RIGHT LOWER EXTREMITY DRESSING CHANGE (Right ) COVID: Negative 11/09 Labs: Type and screen: Expires: 11/25 Results from last 7 days Lab Units 11/22/20 0434 ABORH AB Positive Chem: Results from last 7 days Lab Units 11/22/20 0434 SODIUM mmol/L 137 POTASSIUM mmol/L 4.3 CHLORIDE mmol/L 102 BUN mg/dL 14 CREATININE mg/dL 0.85 GLUCOSE mg/dL 81 CALCIUM mg/dL 8.6 CBC: Results from last 7 days Lab Units 11/22/20 0434 WBC K/mcL 8.75 HGB g/dL 7.4* HCT % 23.7* PLT K/mcL 433* HCG: Postmenopausal VsS. On 1LNC PMH: Colon Cancer s/p partial colectomy, Pituitary abnormality, COPD, NF L hip s/p replacement, depression, RA Neuro: On Wellbutrin Cardiovascular: EK/21 ECHO: None Respiratory: CXR: 11/11 Mild pulmonary vascular congestion. Apparent nodular opacity projecting at the right mid lung. It is unclear if this is associated with a rib shadow or is a parenchymal finding. Recommend further evaluation with nonemergent chest CT. CT Chest 11/15 Trace bilateral pleural effusions. Minimal dependent atelectasis. Mild emphysema. 1. COPD exacerbation 1. Started on prednisone and ATB (Completed) 2. Acute respiratory failure with hypoxia 1. Weaned O2 from 4L to 1L + Smoker Hx COPD On Lasix, symbicort, Spiriva Endocrinology: No concerns Nephrology/Urology/Ltyes: 1. Elevated Cr on admit - Normalized Gastroenterology: No concerns Hematology: 1. Anemia- Hgb 7.4 2. Thombcytosis- Plt 433 Musculoskeletal/integumentary: 1. Non-healing surgical wound 1. S/p TKA few months ago 2. Surgical wound infection 3. PAD 1. 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 Will follow. * Plan of Care - Natty Carvalho, VISHNU - 11/21/2020 7:31 AM EDT Problem: Breathing Pattern - Ineffective Goal: Effective breathing pattern Outcome: Partially Met * Quick Note - Shanita Roa RN - 11/20/2020 9:30 AM EDT Pt seen for vac dressing check. Vac #[id number] applied in OR to RLE on 11-[address] Patiño following a STSG. Vac on @ -25mmhg low continuous suction as ordered. Janelle wrap in place. Small amount serosangdrainage in canister. MECHE drains x 3. Will follow prn. * Op Note - Dl Patiño MD - 11/18/2020 7:05 AM EDT JESSICA GONZALEZ [id number] 1945 DATE OPERATIVE REPORT SURGEON DL PATIÑO MD PREOPERATIVE DIAGNOSES 1. Open wound, right posterior calf. 2. Open wound, right patella and tibia. POSTOPERATIVE DIAGNOSES 1. Open wound, right posterior calf. 2. Open wound, right patella and tibia. OPERATIVE PROCEDURE 1. 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 2. Advancement flap closure of the posterior calf 4 x 3 cm. 3. Medial gastrocnemius flap to the knee. 4. Debridement of bone from the patella and tibial tubercle. 5. Split-thickness skin graft from the right thigh to the right knee. 6. Application of wound vacuum-assisted closure. 7. Short leg splint. ANESTHESIA General. CLINICAL NOTE This lady had a previously failed lateral gastroc flap for exposed patella over her total knee prosthesis on the right side. Subsequent workup has shown that she has significant peripheral vascular disease, which has been repaired by the vascular surgeons. As a consequence of her original procedure, she had failure of the flap and nonhealing wound in the posterior calf. She was taken back to the operating room today for repair. DESCRIPTION OF PROCEDURE Patient was anesthetized under general anesthesia. Tourniquet was applied to the right leg and she was positioned in the prone position. The right leg was prepped and draped in the usual fashion. She had an ulcer on the posterior aspect of the leg, which was excised with a 10- blade down to the underlying muscle. There was a rind of scar tissue over the soleus muscle, which was excised and submitted for pathological evaluation. Hemostasis was achieved with electrocautery. Her incision extended laterally. I had to alter this to a new incision to get the medial gastroc out. I made a small Z-plasty on the posterior aspect of the calf and then dissected to the popliteal fossa. I then undermined widely on either side of the defect in order to affect closure of the posterior calf defect. Medial gastroc flap was then from the underlying soleus. A tunnel was then made around the medial aspect of the leg to the tibial wound. This was done with scissors and electrocautery. Tourniquet was deflated. The patient was very, very oozy. I think this was a combination of her perioperative Plavix and Lovenox that had been given around her vascular anastomosis. I spent over an hour trying to obtain hemostasis with electrocautery, Sindy, and Surgicel. Finally, we managed to get some semblance of hemostasis, but definitely, the lady lost a significant amount of blood. We checked her hemoglobin intraoperatively, it was 6.9, so we elected to transfuse her 2 units intraoperatively. Then, two 15 fluted drains were brought out to drain the posterior calf wound. This was then closed in 2 layers with 2-0 Monocryl and 2-0 nylon. The drains were sutured in place. The patient was then transferred to a new OR table in preparation for closure of the knee defect. Again, there was significant bleeding around the incision site. This responded to electrocautery. I placed a 3rd drain under the flap. I then used an osteotome and high-speed bur to remove exposed desiccated portions of anterior patella and tibial tubercle. There was desiccated portions of her patellar tendon that were removed. Cultures were taken. The wound was irrigated copiously with saline. Hemostasis was achieved with electrocautery. The flap was then inset circumferentially with 2-0 Vicryl. Attention was directed to the ipsilateral thigh. Using an air- driven dermatome, a split-thickness skin graft 04/1000 of an inch was harvested. This was meshed in a 1:1.5 fashion. It was taken up to the knee, stapled in place circumferentially on the muscle flap. The construct was immobilized with a wound VAC, short leg splint dressing. The donor site was covered with Xeroform. Estimated blood loss was 400 cc intraoperatively. She received 2 units of packed cells intraoperatively. MD Esmer CERVANTES 11/17/2020 16:48 [id number] T 11/18/2020 06:59 MDW/MINAL * Saman Note - Mele Mcclure DO - 11/17/2020 9:07 PM EDT [facility] [place] Cover NOTE Contacted by staff regarding patient with hypotension following complex OR course. Has completed transfusion at this time and remains asymptomatic Action previously taken: Hold plavix and lovenox per recommendations from Dr Patiño surgical note. Continue to monitor BP. Will recheck Hgb s/p transfusion Action taken: Repeat 500mL NS fluid bolus. Move repeat H&H to now. Repeat transfusion as needed. Hold Lasix. Consider further fluids vs albumin vs pressors if continued hypotension without transfusion indication. Call or activate rapid response as appropriate for further BP drop or symptomatic of hypotension * Quick Note - Annabelle Pedersen MD - 11/17/2020 7:28 PM EDT [facility] [place] Cross Cover NOTE Contacted by staff regarding patient with hypotension and large amount of intraoperative blood lossduring surgery. BP currently 97/53 after 1 unit PRBCs and IV fluid bolus. Action taken: Hold plavix and lovenox per recommendations from Dr Patiño surgical note. Continue to monitor BP. Will recheck Hgb s/p transfusion. * Brief Op Note - Dl Patiño MD - 11/17/2020 4:29 PM EDT Brief Post Operative Note Patient Name: Jessica Gonzalez : 1945 (75 y.o.) Date of Service: 11/17/2020 CSN: [id number] Procedure(s): MEDIAL GASTROC FLAP WITH RIGHT LEG SKIN GRAFT, debridement of patellar bone and tibial tubrical, excision of ulcer posterior calf and advancement flap closure Pre-Operative Diagnoses: * RIGHT KNEE WOUND Post-Operative Diagnoses: Surgeon(s) and Role: * Dl Patiño MD - Primary Anesthesiologist: Gary Miranda MD; Oscar Morales MD [employer] PRINCIPAL: Edgardo Ugalde CRNA; Teresa Harman CRNA; Iván Narvaez CRNA Student Nurse Piper Helper: Tae Briones Warehouse Shipping Supervisor: Susan Meza RN Warehouse Shipping Supervisor Relief: Carmencita Jimenez RN Scrub Person Relief: ST Gladys Scrub Person: ST Ania Anesthesia Specialist: Liza Lancaster Operative findings: open wound right knee Intra and immediate post-operative complications: very bloody due to lovenox and plavix.. hold postop Type of anesthesia used: General Estimated blood loss: 400 mL Estimated urine output: Specimen(s): ID Type Source Tests Collected by Time Destination 1 : tibial tubrical for culture Swab Tibia, Right SURGICAL SITE AEROBIC CULTURE, SURGICAL SITE ANAEROBIC CULTURE Dl Patiño MD 11/17/2020 1533 Implant(s): Implant Name Type Inv. Item Serial No. Child Watch Attendant Lot No. LRB No. Used Action HEMOSTAT 5GM SINDY - [id number] HEMOSTAT 5GM SINDY Xand [id number] Right 2 Implanted HEMOSTAT 8 X 12.5CM X 10MM SURGIFOAM GELATIN SPONGE - [id number] HEMOSTAT 8 X 12.5CM X 10MM SURGIFOAM GELATIN SPONGE ETHICON [id number] N/A 1 Implanted Drain(s): Closed/Suction Drain 1 Left;Posterior;Medial Leg 15 Fr. (Active) Closed/Suction Drain 2 Left;Posterior;Lateral Leg 15 Fr. (Active) Closed/Suction Drain 3 Posterior Knee 15 Fr. (Active) Wound(s): Wound 11/13/20 Surgical Wound Groin Left (Active) Reassessment Unchd 11/17/20 0410 Dressing Status Clean;Dry;Intact 11/16/202058 Dressing Changed Other (Comment) 11/16/202058 Drainage Amount None 11/16/202058 Drainage Description VICTOR MANUEL 11/15/20 0859 Odor None 11/16/202058 Wound Bed Characteristics VICTOR MANUEL (Unable to assess) 11/16/202058 Esmer-wound Assessment Temperature WNL;Ecchymosis 11/16/202058 Primary Dressing Gauze pad 11/16/202058 Secondary Dressing Transparent film 11/16/202058 Wound 11/17/20 Surgical Wound Leg Right (Active) Wound 11/17/20 Surgical Wound Lower Leg Right (Active) Dl Patiño MD 11/17/2020 4:29 PM * Quick Note - Chuy Lovefaith Boyer, GUT DROPPER - 11/17/2020 9:28 AM EDT Pre-operative Patient Readiness Date: 11/13/20 6:45 AM Admission:11/09/2020 Operative Intervention: MEDIAL GASTROC FLAP WITH RIGHT LEG SKIN GRAFT COVID: Negative 11/09 Labs: Type and screen: Expires: 11/20 Results from last 7 days Lab Units 11/17/20 0648 ABORH AB Positive Chem: Results from last 7 days Lab Units 11/17/20 0648 SODIUM mmol/L 140 POTASSIUM mmol/L 3.5 CHLORIDE mmol/L 103 BUN mg/dL 20 CREATININE mg/dL 0.78 GLUCOSE mg/dL 86 CALCIUM mg/dL 8.5 CBC: Results from last 7 days Lab Units 11/17/20 0648 WBC K/mcL 8.93 HGB g/dL 9.6* HCT % 30.2* PLT K/mcL 390 HCG: Postmenopausal PMH: Colon Cancer s/p partial colectomy, Pituitary abnormality, COPD, NF L hip s/p replacement, depression, RA Vs: Intermittent tachycardia, HR 70-114. On 2LNC Neuro: On Wellbutrin Cardiovascular: EK/21 ECHO: None Respiratory: CXR: 11/11 Mild pulmonary vascular congestion. Apparent nodular opacity projecting at the right mid lung. It is unclear if this is associated with a rib shadow or is a parenchymal finding. Recommend further evaluation with nonemergent chest CT. CT Chest 11/15 Trace bilateral pleural effusions. Minimal dependent atelectasis. Mild emphysema. 1. COPD exacerbation 1. Started on prednisone and ATB 2. Acute respiratory failure with hypoxia\ 1. Weaned O2 from 4L to 2L + Smoker Hx COPD On Lasix, symbicort, Spiriva Endocrinology: No concerns Nephrology/Urology/Ltyes: 1. Elevated Cr on admit - Normalized Gastroenterology: No concerns Hematology: Hgb 9.6 Musculoskeletal/integumentary: 1. Non-healing surgical wound 1. S/p TKA few months ago 2. Surgical wound infection 3. PAD 1. 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 Primary team clearance note: Preop clearance METs>4 No cardiac or resp symptoms No h/o either Dx Vascular as above, otherwise may proceed to OR w/o further cardiac testing Pending Testing : None Additional Concerns: None Consenting Republican: Patient Love Vera CNP 11/17/2020 * Plan of Care - Merna Hernandez RRT - 11/17/2020 8:14 AM EDT Problem: Breathing Pattern - Ineffective Goal: Effective breathing pattern Outcome: Partially Met * Quick Note - Love Vera CNP - 11/15/2020 8:39 AM EDT Pre-operative Patient Readiness Date: 11/13/20 6:45 AM Admission:11/09/2020 Operative Intervention:RIGHT KNEE DEBRIDEMENT (Right ) COVID: Negative 11/09 Labs: Type and screen: Expires: 11/15 Results from last 7 days Lab Units 11/12/20 0919 ABORH AB Positive Chem: Results from last 7 days Lab Units 11/14/20 0508 SODIUM mmol/L 140 POTASSIUM mmol/L 4.0 CHLORIDE mmol/L 102 BUN mg/dL 11 CREATININE mg/dL 0.75 GLUCOSE mg/dL 89 CALCIUM mg/dL 8.7 CBC: Results from last 7 days Lab Units 11/14/20 0508 WBC K/mcL 9.23 HGB g/dL 9.8* HCT % 30.7* PLT K/mcL 399 HCG: Postmenopausal PMH: Colon Cancer s/p partial colectomy, Pituitary abnormality, COPD, NF L hip s/p replacement, depression, RA VSS. On 2LNC Infectious Etiologies: Surgical wound infection Neuro: On Wellbutrin Cardiovascular: EK/21 ECHO: None Respiratory: CXR: 11/11 Mild pulmonary vascular congestion. Apparent nodular opacity projecting at the right mid lung. It is unclear if this is associated with a rib shadow or is a parenchymal finding. Recommend further evaluation with nonemergent chest CT. + Smoker Hx COPD On Lasix, symbicort, Spiriva Endocrinology: No concerns Nephrology/Urology/Ltyes: 1. Elevated Cr - Normal today Gastroenterology: No concerns Hematology: Hgb 9.8 Musculoskeletal/integumentary: 1. Non-healing surgical wound 1. S/p TKA few months ago 2. Surgical wound infection 3. PAD 1. 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 Primary team clearance note: Preop clearance METs>4 No cardiac or resp symptoms No h/o either Dx Vascular as above, otherwise may proceed to OR w/o further cardiac testing Pending Testing : CBC, BMP Additional Concerns: None Consenting Republican: Patient Love Vera CNP 11/15/2020 * Sign Off Note - Christina Cadena PA-C - 11/14/2020 9:11 AM EDT Vascular Sign-Off Conditions treated: PVD Surgeries/interventions: R SFA and PT angioplasty 11/13 Discharge Medications: Plavix 75mg daily Lipitor 20 mg daily Incision / Wound care instructions: Remove dressing from groin tomorrow (Wednesday 11/15) Follow up appointment: Follow up with Dr. Dawson Baird (Vascular surgeon in [place], where patient is from) Follow up imaging: None To follow up with Vascular surgeon in [place] (where she is from) for LLE angiogram as she does not want to travel to [place] for this. Discussed with patient, welcome to follow up with us if she stays in [place]. * Brief Op Note - Nicky Soriano PA-C - 11/13/2020 2:45 PM EDT Brief Post Operative Note Patient Name: Jessica Gonzalez : 1945 (75 y.o.) Date of Service: 11/13/2020 [facility]: [id number] Procedure(s): AORTOGRAM BILATERAL LOWER EXTREMITY ANGIOGRAM WITH RUNOFFS POSSIBLE INTERVENTION AND OTHER PROCEDURES INDICATED Pre-Operative Diagnoses: * PERIPHERAL VASCULAR DISEASE / BILATERAL LOWER EXTREMITY NONHEALING WOUNDS Post-Operative Diagnoses: Surgeon(s) and Role: * Percy Yanez MD - Primary * Charly Stiles DO - Resident - Assisting Anesthesiologist: Ann Marie Cooper MD; Oscar Morales MD [employer] PRINCIPAL: Lisset Case CRNA Warehouse Shipping Supervisor: Shawn Liu RN Scrub Person: Becca Brannon Anesthesia Specialist: Louise Pratt Warehouse Shipping Supervisor Orientee: Marya Hanson RN Operative findings: arterial stenosis resolved with R SFA and PT angioplasty Intra and immediate post-operative complications: none Type of anesthesia used: Monitor Anesthesia Care Estimated blood loss: 20 mL Estimated urine output: Specimen(s): * No specimens in log * Implant(s): * No implants in log * Drain(s): * No LDAs found * Wound(s): Wound 11/13/20 Surgical Wound Groin (Active) Nicky Soriano PA-C 11/13/2020 2:45 PM * Op Note - Percy Yanez MD - 11/13/2020 1:58 PM EDT Operative Note Patient Name: Jessica Gonzalez Date of : 1945 Date of Operation: 11/13/20 Pre-operative Diagnosis: 1. Peripheral arterial disease with ulceration of the right lower extremity and left lower extremity Post-operative Diagnosis: 1. Peripheral arterial disease with ulceration of the right lower extremity and left lower extremity 2. Right mid/distal superficial femoral artery (SFA) severe (70%) stenoses, angioplastied 3. Right three tibial artery runoff. 4. Right posterior tibial artery (PT) severe distal stenosis (70%), angioplastied 5. No aortoiliac arterial disease 6. Left superficial femoral artery (SFA) with severe disease 6. 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 - Insertion of catheter into aorta. - Aortoiliac arteriogram. - Bilateral lower extremity arteriogram - Selective catheterization of right common femoral artery. - Selective third-order catheterization of the right posterior tibial artery with arteriogram. - Percutaneous balloon angioplasty of right superficial femoral artery using a 5 x 80 mm [place] paclitaxel drug-coated balloon (DCB). - Right posterior tibial artery angioplasty using a 2.5 mm cutting balloon - Completion arteriogram. - Left iliofemoral arteriogram. Surgeon: Percy Yanez MD. Supervisor Road Administrator: Charly Stiles DO Anesthesia: IV sedation and local anesthesia. Estimated Blood Loss: 50 mL Indications for Procedure: Jessica Gonzalez is a 75 y.o. female who was evaluated as an inpatient with chronic arterial insufficiency with nonhealing wound of the right and left lower extremities and was deemed an appropriate candidate for an angiogram and possible intervention. Informed consent was obtained after discussion of p otential benefits, alternatives and risks of the procedure, including but not limited to bleeding, infection, worsening of arterial insufficiency, limb loss and kidney injury due to contrast administration. Details of Procedure: The patient was taken to the operating room and placed in supine position. IV sedation anesthesia was administered by the anesthesia team. The operative area was clipped, prepared and draped in sterile fashion. A dose of intravenous antibiotics was administered. A brief time out was performed per hospital protocol. The left common femoral artery was accessed under fluroscopic and ultrasound guidance with a micropuncture needle, wire, then sheath. Arteriogram confirmed appropriate location of entry. A 4-Polish sheath was inserted over a wire. A wire, then catheter was inserted into the aorta. An aortoiliac arteriogram was performed. A bilateral lower extremity arteriogram was performed using bolus jessy technique identifying stenoses of the right mid/distal superficial femoral artery. The right tibial runoff (outflow) consisted of the anterior tibial artery, posterior tibial artery and peroneal artery. There was a distal rightPT severe stenosis. The left tibial runoff (outflow) consisted of a diseased AT, an occluded PT eitan patent peroneal. The right iliac, then common femoral artery was selectively catheterized, and an arteriogram was performed. The right superficial femoral artery was selectively catheterized and angiography performed. An up-and-over 5 Polish sheath was inserted over the wire into the right common femoral artery after 5000 units of intravenous heparin was administered and three minutes allowed to elapse. The right SFA responded to a 5 x 80 mm [place] DCB (2.5 minutes at 12 iris), then the right PT to a 2.5 mm cutting balloon. Runoff was intact and three vessel. The sheath was withdrawn over a wire then exchanged for a short sheath. A left iliofemoral arteriogram was performed identifying the level of access. The sheath was to be removed in the recovery area and manual pressure held. The patient tolerated the procedure well, was awakened and was taken to the post-operative care unit in stable condition. Percy Yanez MD Fluoro time: 12.9 min IV contrast 56 DAP [id number] * Plan of Care - Jose Alex CRT - 11/13/2020 8:26 AM EDT Problem: Breathing Pattern - Ineffective Goal: Effective breathing pattern Outcome: Not Met * Quick Note - Love Vera CNP - 11/13/2020 6:52 AM EDT Pre-operative Patient Readiness Date: 11/13/20 6:45 AM Admission:11/09/2020 Operative Intervention: AORTOGRAM BILATERAL LOWER EXTREMITY ANGIOGRAM WITH RUNOFFS POSSIBLE INTERVENTION AND OTHER PROCEDURES INDICATED (Bilateral ) COVID: Negative 11/09 Labs:Pertinent Labs Type and screen: Expires: 11/15 Chem: Results from last 7 days Lab Units 11/12/20 0822 SODIUM mmol/L 139 POTASSIUM mmol/L 3.6 CHLORIDE mmol/L 103 BUN mg/dL 10 CREATININE mg/dL 0.73 GLUCOSE mg/dL 96 CALCIUM mg/dL 8.5 CBC: Results from last 7 days Lab Units 11/12/20 0822 WBC K/mcL 10.54 HGB g/dL 9.8* HCT % 31.3* PLT K/mcL 320 HCG: Postmenopausal PMH: Colon Cancer s/p partial colectomy, Pituitary abnormality, COPD, NF L hip s/p replacement, depression, RA VSS. On 2LNC Infectious Etiologies: Surgical wound infection Neuro: On Wellbutrin Cardiovascular: EKG: Ordered ECHO: None Respiratory: CXR: 11/11 Mild pulmonary vascular congestion. Apparent nodular opacity projecting at the right mid lung. It is unclear if this is associated with a rib shadow or is a parenchymal finding. Recommend further evaluation with nonemergent chest CT. + Smoker Hx COPD On Lasix, symbicort, Spiriva Endocrinology: No concerns Nephrology/Urology/Ltyes: 1. Elevated Cr - Normal today Gastroenterology: No concerns Hematology: Hgb 9.8 Musculoskeletal/integumentary: 1. Non-healing surgical wound 1. S/p TKA few months ago 2. Surgical wound infection 3. PAD 1. 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 Assess respiratory status through observation of chest for excursion, breath sounds, cougheffort & sputum production, and respiratory rate. 2. Notify physician of clinical changes. Continue current therapy Category B * Plan of Care - Jose Alex CRT - 11/12/2020 11:49 AM EDT Cat b * Plan of Care - Sharyn Mosqueda, ANNIE - 11/11/2020 6:28 PM EDT Problem: Pain Goal: Manage acute pain Outcome: Partially Met Problem: Falls, Risk of Goal: Absence of falls Outcome: Partially Met * Plan of Care - Lucy Momin RN - 11/11/2020 5:06 AM EDT Problem: Pain Goal: Manage acute pain Outcome: Partially Met Patient complaint of pain and PRN med were given. Will continue to monitor. Problem: Falls, Risk of Goal: Absence of falls Outcome: Partially Met Patient taught to call for help when getting up. Will continue to monitor. Problem: Skin Integrity - Impaired Goal: Wound healing Outcome: Partially Met Patient taught to reposition. Will continue to monitor. * ED Attestation Note - Amelie Baeza DO - 11/09/2020 5:14 PM EDT ED Attending Attestation: I have reviewed the DANIS's (Advanced Practice Provider's) documentation, personally taken the patient's history, performed an exam and agree with the physical findings, clinical impression and management plan. Please refer to the DANIS's documentation for complete details regarding ED course. Patient seen during the COVID- pandemic. Patient in a surgical mask and all ED staff in appropriate PPE given current CDC recommendations. This is a 75-year-old female who presents from physician office for admission for nonhealing ulceration to the right patella, overlying prosthesis. Patient was referred by Dr. Patiño. She has been managed at another facility in [place] for this ulceration with a gastroc muscle flap and skin graft, but states that the ulceration is still progressing. Patient has new onset left lower extremity edema, erythema, pain and warmth. She states this started a few days ago. She is not reporting fevers or abdominal pain. On exam, she is in no acute distress. Heart is elevated but not tachycardic. She has coarse rhonchibilaterally. The right patella has overlying ulceration and a necrotic bed. The left lower extremity reveals healing ulcerations on the medial aspect, but is 2+ pitting, erythematous, and warm. Patient has a leukocytosis, mild anemia, elevated CRP, and a creatinine of 1.34. No priors for comparison. Patient states that she is on daily doxycycline for the last 4 years. She has evidence of a left lower extremity cellulitis so she will be started on vancomycin. Venous Doppler of the left lower extremity given the swelling. Consulted plastics as well, and plan to admit to medicine. documented in this [id number] Hospital Discharge instructions * Discharge Instr - AVS First Page* Corina Hanson CNP - 11/27/2020 1:17 PM EDT BID dressing to RLE graft: bacitracin, adaptic, kerlix fluffs, kerlix roll, janelle, splint Hold doxycyline for now and follow up with Surgery from [facility] who did left hip replacement * Additional Instructions* Doris Jessica CNP - 11/13/2020 Wound Care: Change dressing to right leg twice day. Apply bacitracin ointment over skin graft, then cover with adaptic, 4x4 gauze, wrap with kerlex roll and janelle wrap, splint. Leave right thigh xeroform in place and open to air. Non weight bearing right leg. You may sponge bathe only. No showers, soaking in tubs, swimming pools, or hot tubs. Check the wound for signs of infection. Call your doctor or nurse if you have: - Skin around the wound is more red, swollen, or feels hot - Wound smells bad - Pus drainage - Temperature above 100.5 F EVI-RAYN DRAIN (or MECHE drain) When you return home, do the following to help ensure a smooth recovery: -Empty drain at least twice a day or when full, keep a record of the amount of the drainage emptiedand take the record to your follow up appointment. -Avoid bumping the drain -Sleep on the opposite side of the drain. This will help you avoid blocking the tubing or pulling it out of the suction bulb. -You can shower with your drain, do not submerge in a tub or soak in water. Call your doctor if any of the following occurs: -Drainage is greenish in color or has a bad smell -Significant bleeding from the drain -Pain at the incision -Fever or chills -End of the tube comes out of the incision -Removal of a drain depends on how fast you heal from surgery or injury. Your doctor may remove thedrain when there is less than 1-2 tablespoons (15-30 milliliters) of drainage/fluid per day. If youhave more than one drain, they may not necessarily be removed at the same time. Remove the bandage in your groin tomorrow, 11/15/20 [facility] PERIPHERAL ANGIOGRAM / ANGIOPLASTY / STENTING HOME CARE INSTRUCTIONS On 11/13/20 you had an angiogram and angioplasty of your R superficial femoral and posterior tibial artery. Please start taking Plavix 75mg daily and Lipitor 20mg daily. Continue your Xarelto as previously prescribed. Do not smoke or use nicotine or tobacco products. Call to confirm your follow-up appointment. Medications: Continue your home medications. Call the office if you have: - Any redness, swelling, pus or red streaks running down the leg at the catheter site - Fever of 101 degrees F or greater. Bleeding If you notice any bleeding through the bandage, lie flat and apply pressure for 10-15 minutes. If the bleeding does not stop, or if you develop severe leg or foot pain, have someone bring you tot emergency department or call 911 right away. Activity - Have an adult stay with you overnight the first night - Avoid strenuous exercise or lifting anything over 5 pounds (gallon of milk) for 2 days. - Do not take a bath or shower for at least 24 hours, avoid direct pressure spray to groin - You may resume regular activities after 48 hours - Avoid soaking in a tub or swimming pool for 2 weeks or until your incisions are completely healed. Incision Care - Keep the bandage on the insertion site for 24 hours after discharge - Slight bruising is common - Wash hands before touching dressings - Remove dressings after 24 hours from your discharge home - Shower, allow soapy water to run over area but do not scrub surgical site for 7-10 days - Dry the surgical site well immediately after showering Follow up instructions A follow up appointment may be scheduled for you prior to your surgery. Please call the office to confirm your post-operative follow-up. Avoid tobacco products To help healing and reduce risks of further vascular problems, you must avoid all tobacco and nicotine products. Quitting smoking is the most important thing you can do to prevent progression and recurrence of your disease. If you need assistance to help you quit tobacco please contact . [facility] [address] [address], [address] [place] [address] [address] Frantz Hendrix documented in this [id number] Consult note* Ana Leong, OT - 11/22/2020 5:01 PM EDT ORTHOSIS ISSUED AND FABRICATION NOTE Patient agitated and argumentative regarding need for splint. Ultimately allowed therapist to place splint after education. Reason for Visit Initial Fabrication - Lower Extremity Pain Assessment Pain Assessment Scale: 0-10 DVPRS 0-10 DVPRS: (did not answer ) Cognition Overall Cognitive Status: Impaired Arousal/Alertness: Appropriate responses to stimuli Orientation Level: Oriented X4 Executive functioning: Min impairment Safety Judgment: Decreased awareness of need for assistance, Decreased awareness of need for safety Problem Solving: Assistance required to identify errors made, Assistance required to generate solutions, Assistance required to implement solutions Attention: Impaired Hearing Status: Hard of hearing Social Interaction: Irritable, Anxious Orthosis Issued/Fabricated Reason for Orthosis: Protection of a skin graft, Protection / Achievement of specified joint positioning Orthosis Type: Right, Custom, Static Ankle Foot Orthosis Achieved Orthosis Positioning: Met Patient Performance Knowledge of Orthosis/Skin Care: Maximum assist Knowledge of Wear Schedule: Maximum assist Ability to Don Orthosis: Maximum assist Ability to Doff Orthosis: Maximum assist Patient Skilled Intervention Skilled Intervention Provided to Patient: Education provided on purpose for orthosis, Education provided on orthosis wear schedule, Education provided on care and management of orthosis, Education provided on how to don/doff orthosis, Education provided on skin checks, Step by step directions, Demonstration Orthosis Follow Up Orthosis Follow Up: Yes, secondary to, education needs, edema, impaired cognition, pain * Stacy Walter, PT - 11/21/2020 9:33 AM EDT Physical Therapy PHYSICAL THERAPY PROGRESS REPORT Patient with new weight bearing restrictions limiting her mobility. New plan of care set. Patient will benefit from further therapy at [facility]. She was able to sit up in chair for just over an hour with right leg elevated. Vitals stable. Patient's main complaint is overall fatigue and weakness. Skilled Therapy Needs After Discharge Anticipate Resolution of Current Assessment Limitations Including: Mechanical Barriers, Pain Are Skilled Therapy Services Needed After Discharge: Yes Intensity of Skilled Therapy: Up to 5 days per week Anticipated Duration of Skilled Therapy: Duration 7 - 10 days DME Recommendation: (Maybe platform WW- TBD after trial with AD) Rehab Potential: Good, For goals Outcomes Measures Prior Function - Basic Mobility Raw Score: 24 Points Prior Function - Basic Mobility % Impaired: 0% AM-PAC Basic Mobility Raw Score: 13 Points AM-PAC Basic Mobility % Impaired: 57.65 Activity Tolerance Activity Tolerance: Tolerates 10 - 20 min activity with multiple rests Therapy Precautions Orthotic Devices: No Weight Bearing Status: WFL General Rehab Precautions: Fall risk Balance Sitting Balance - Static: with back unsupported, Independent Sitting Balance - Dynamic: with back unsupported, Supervision Standing Balance - Static: 2 person, Moderate assist Sidehand - Standing Static: wheeled walker Loss of Balance- Standing Static: multidirectional Skilled Intervention Provided: patient education, visual cues, verbal cues, tactile cues For: LE management, postural alignment, fall prevention Resulting in: improved functional independence, improved balance reactions Bed Mobility Rolling: Stand by assist, Head of bed elevated (R Le managment assist at times) Supine to Sit: Contact guard assist, Head of bed elevated Sidehand: bedrails Skilled Intervention Provided: verbal cues, tactile cues For: LE management, LE positioning, postural alignment Resulting in: improved activity tolerance, improved functional independence Transfers Sit to Stand: Moderate assist, 2 person assist Squat Pivot Transfers: Moderate assist, 2 person assist Sidehand: wheeled walker Additional Transfer Trial 2: Yes Squat Pivot Transfers Trial 2: Moderate assist, 2 person assist Skilled Intervention Provided: verbal cues, tactile cues, patient education, provided step by step instructions For: LE positioning, UE management, LE management, UE positioning, midline orientation, proper bodymechanics Resulting in: improved activity tolerance, improved functional independence Toilet Transfers: Moderate assist, 2 person assist Skilled Intervention Provided: verbal cues, tactile cues, provided step by step instructions For: initiation of task, LE management, LE positioning, proper body mechanics, safety during functional tasks Resulting in: improved adherence to precautions, improved performance, improved functional independence Gait/Locomotion Gait Assistance: (Unable to progress as she was having trouble with regular WW) Additional Treatment Details Patient very motivated. Since her right arm is weak, she may benefit from a platform pediatric wheeled walker. Home Living Obtained Home Living and PLOF info from: Patient Lives With: Alone Type of Home: House Home Layout: One level, Laundry in basement Steps to enter home: Yes Rails to enter home: 1 rail Number of stairs to enter home: 2 Bathroom Shower/Tub: Tub/shower unit Bathroom Toilet: Standard Bathroom Equipment: Grab bars in shower, Shower chair Bathroom Accessibility: Accessible Mobility Equipment: Cane, Wheeled walker, Rollator Prior Level of Function Receives Help From: Family Level of Mead - Transfers/Ambulation/Mobility: Independent with functional transfers, Independent with household ambulation, Independent with community ambulation Level of Mead - ADLs: Independent Level of Mead - Homemaking: Independent Driving: Patient drives For complete objective data, detailed plan of care and patient education refer to: PT Evaluation flowsheet, PT Evaluation and Treatment flowsheet, PT Treatment flowsheet, patient Plan of Care, Plan of Care progress note, and Patient Education. This note stands as the current Discharge Summary upon patient discharge from the hospital or completion of Physical Therapy Plan of Care. * Taqueria Little MD - 11/19/2020 1:33 PM EDT Associated Order(s): IP CONSULT TO INFECTIOUS DISEASES CONSULT NOTE Patient Name: Jessica Gonzalez Admit Date: [id number] MR #: [id number] : 1945 Physicians: Stuart Zamora DO (Family); Dl Patiño MD (Referring) Chief Complaint/Reason for Visit: Right leg infection History of Present Illness: Jessica Gonzalez is a 75 y.o. female with history of rheumatoid disease, peripheral vascular disease, COPD, colon cancer who presents with history of left total hip replacement infection for which he has been on chronic doxycycline and problems related to postoperative righttotal knee replacement nonhealing wounds. She had an initial flap attempt and skin graft but this failed and she has had chronic wound issues. She has had vascular intervention to improve inflow to the right lower extremity and it appears a surface wound culture grew Pseudomonas and Alcaligenes andsnehal has been on cefepime for this. She now has had more definitive debridement wound closure and hardware has been exposed. This raises a concern for the need of possible prolonged antibiotic therapy. History: Past Medical History: Diagnosis Date Cancer (HCC) colon COPD (chronic obstructive pulmonary disease) (HCC) PAD (peripheral artery disease) (HCC) Pituitary abnormality (HCC) Rheumatoid aortitis Past Surgical History: Procedure Laterality Date AORTOGRAM WITH RUNOFFS POSSIBLE INTERVENTION Bilateral 11/13/2020 Procedure: AORTOGRAM BILATERAL LOWER EXTREMITY ANGIOGRAM WITH RUNOFFS POSSIBLE INTERVENTION AND OTHER PROCEDURES INDICATED; Surgeon: Percy Yanez MD; Location: [facility] Main OR; Service: Gen-Vascular JOINT REPLACEMENT ORTHOPEDIC SURGERY right knee, left hip Family History: No TB Social History Tobacco Use Smoking status: Current Every Day Smoker Packs/day: 0.10 Smokeless tobacco: Never Used Tobacco comment: 5-6 cigarettes a day Substance Use Topics Alcohol use: Never Drug use: Never Allergy Information: I have reviewed the patient's allergies. Patient has no known allergies. Home Medications: Outpatient Medications as of 11/19/2020 Medication Sig atorvastatin (LIPITOR) 20 MG tablet Take 1 (one) tablet (20 mg total) by mouth nightly . clopidogreL (PLAVIX) 75 mg tablet Take 1 (one) tablet (75 mg total) by mouth daily . Hospital Medications: Current Facility-Administered Medications Medication Dose Route Frequency Provider Last Rate Last Admin acetaminophen (TYLENOL) tablet 650 mg 650 mg Oral Q4H PRN Nicky Gatz, PA-C 650 mg at 11/18/20 0538 Or acetaminophen (TYLENOL) solution 650 mg 650 mg Oral Q4H PRN Nicky Gatz, PA-C 650 mg at 11/18/20 0030 Or acetaminophen (TYLENOL) suppository 650 mg 650 mg Rectal Q4H PRN Nicky Soriano PA-C ascorbic acid (vitamin C) (VITAMIN C) tablet 500 mg 500 mg Oral Daily Christ Iqbal MD 500 mg at 11/19/20947 atorvastatin (LIPITOR) tablet 20 mg 20 mg Oral Nightly Solomon Meade PA-C 20 mg at 11/18/202105 bisacodyL (DULCOLAX) suppository 10 mg 10 mg Rectal Daily PRN Christ Iqbal MD budesonide-formoteroL (SYMBICORT) 160-4.5 mcg/actuation inhaler 2 puff 2 puff Inhalation BID Jonathan Geller DO 2 puff at 11/19/20 09 buPROPion (WELLBUTRIN SR) 12 hr tablet 150 mg 150 mg Oral BID Christ Iqbal MD 150 mg at 11/19/20947 cefePIMe-dextrose (MAXIPIME) 2 gram/50 mL IVPB 2,000 mg 2,000 mg Intravenous Q12H Jonathan Geller DO 100 mL/hr at 11/19/20 0228 2,000 mg at 11/19/20 0228 cholecalciferol (vitamin D3) tablet 1,000 Units 1,000 Units Oral Daily Christ Iqbal MD 1,000 Units at 11/19/20947 cyanocobalamin (B-12) tablet 100 mcg 100 mcg Oral Daily Christ Iqbal MD 100 mcg at 11/19/20947 folic acid (FOLVITE) tablet 1 mg 1 mg Oral Daily Christ Iqbal MD 1 mg at 11/19/2048 guaiFENesin (MUCINEX) 12 hr tablet 600 mg 600 mg Oral Q12H [facility] Kendra Ingram, DO 600 mg at 11/19/20 0948 metoprolol (LOPRESSOR) injection 5 mg 5 mg Intravenous Q6H PRN Nicky Soriano PA-C Or hydrALAZINE (APRESOLINE) injection 10 mg 10 mg Intravenous Q6H PRN Nicky Soriano PA-C HYDROcodone-acetaminophen (NORCO) 5-325 mg per tablet 1-2 tablet 1-2 tablet Oral Q4H PRN Nicky Soriano PA-C 2 tablet at 11/19/20 0948 ipratropium-albuteroL (DUO-NEB) 0.5-2.5 mg/3 ml nebulizer solution 3 mL 3 mL Inhalation 4x daily Jonathan Geller DO 3 mL at 11/19/20 0753 ipratropium-albuteroL (DUO-NEB) 0.5-2.5 mg/3 ml nebulizer solution 3 mL 3 mL Inhalation Q2H PRN Kendra Ingram DO lactated Ringers infusion 25 mL/hr Intravenous Continuous Dl Patiño MD 0 mL/hr at 11/17/20 1538 New Bag at 11/17/20 1539 melatonin Tab 5 mg 5 mg Oral Nightly PRN Christ Iqbal MD 5 mg at 11/11/202047 naloxone (NARCAN) injection 0.1 mg 0.1 mg Intravenous PRN Nicky Soriano PA-C And naloxone (NARCAN) injection 0.4 mg 0.4 mg Intravenous PRN Nicky Soriano PA-C nitroGLYCERIN 50 mg in dextrose (D5W) 250 mL infusion 0-200 mcg/min Intravenous Continuous PRN Nicky Soriano PA-C ondansetron (ZOFRAN-ODT) disintegrating tablet 4 mg 4 mg Oral Q6H PRN Christ Iqbal MD Or ondansetron (ZOFRAN) injection 4 mg 4 mg Intravenous Q6H PRN Christ Iqbal MD predniSONE (DELTASONE) tablet 40 mg 40 mg Oral Daily with breakfast Kendra Ingram DO 40 mg at 11/19/20 0947 senna (SENOKOT) tablet 8.6 mg 1 tablet Oral BID PRN Christ Iqbal MD senna-docusate (SENNA-S) 8.6-50 mg per tablet 1 tablet 1 tablet Oral BID Nicky Soriano PA-C 1 tablet at 11/19/20 0947 sodium chloride (PF) (NS) flush 5 mL 5 mL Intravenous PRN Christ Iqbal MD And sodium chloride (PF) (NS) flush 5 mL 5 mL Intravenous Q8H BRYAN Christ Iqbal MD 5 mL at And sodium chloride 0.9% (NS) 0-150 mL/hr Intravenous PRN Christ Iqbal MD Stopped at 11/12/20 1012 sodium chloride (PF) (NS) flush 5 mL 5 mL Intravenous PRN Nicky Gatnicole, PA-C 5 mL at 11/15/202024 And sodium chloride (PF) (NS) flush 5 mL 5 mL Intravenous Q8H BRYAN Nicky Gatnicole, PA-C 5 mL at 11/18/202106 And sodium chloride 0.9% (NS) 0-150 mL/hr Intravenous PRN Nicky Christie, PA-C traZODone (DESYREL) tablet 50 mg 50 mg Oral Nightly PRN Christ Iqbal MD 50 mg at 11/11/202047 Review of Systems: The following system(s) were reviewed and pertinent findings noted: Constitutional, Eyes, ENT, CV, Resp, GI, Neuro, Skin, Musc, , Heme/Lym Physical Examination: Vital Signs: BP 99/66 (BP Location: Right arm, Patient Position: Sitting) Pulse 92 Temp 98 F (36.7 C) (Oral) Resp 18 Ht 4' 11 Wt 58.2 kg (128 lb 4.9 oz) SpO2 91% BMI 25.91 kg/m General: No acute distress, she is a little hard of hearing Head: Normocephalic, without obvious abnormality, atraumatic Eyes: Conjunctiva/corneas clear Throat: Lips, mucosa without lesions Neck: Supple, symmetrical, trachea midline, no adenopathy; Lungs: Clear to auscultation bilaterally, respirations unlabored,normal respiratory effort Cardiovascular: Regular rate and rhythm, S1 and S2 normal, no murmur, rub or gallop; no edema Abdomen: Soft, non-tender, bowel sounds active,no masses, no organomegaly Skin: Turgor normal, no rashes or lesions or nodules Extremities: No cyanosis,clubbing leg postoperative Musculoskeletal: No joint edema Neurologic: Grossly normal strength Psych: Mood and affect appropriate; alert and oriented x 3 Laboratory and Additional Data Reviewed: Lab Results Component Value Date WBC 12.61 (H) 11/19/2020 HGB 7.3 (L) 11/19/2020 HCT 23.1 (L) 11/19/2020 MCV 93.1 11/19/2020 PLT 320 11/19/2020 Lab Results Component Value Date GLUCOSE 88 11/19/2020 CALCIUM 8.4 11/19/2020 NA 138 11/19/2020 K 4.2 11/19/2020 CL 104 11/19/2020 BUN 20 11/19/2020 CREATININE 0.76 11/19/2020 Cultures: As noted Radiology: CT Chest Without Contrast Preliminary Result 1. Trace bilateral pleural effusions. Minimal dependent atelectasis. 2. Mild emphysema. 3. Large nonspecific right glenohumeral joint effusion. Severe glenohumeral joint arthropathy. /s Workstation ID: [id number] XR OR Angio Add Final Result XR Chest 1 View Final Result 1. Mild pulmonary vascular congestion. 2. Apparent nodular opacity projecting at the right mid lung. It is unclear if this is associated with a rib shadow or is a parenchymal finding. Recommend further evaluation with nonemergent chest CT. Workstation ID: [id number] NM White Blood Cell Prep Final Result NM Bone Marrow Limited Final Result Multiple focal soft tissue ulcerations anterior to the knee as well as along the posterolateral andanterolateral aspects of the right lower leg with associated tagged white blood cell accumulation suggesting focal areas of cellulitis. Indeterminate focal area of white blood cell scan accumulation in the region of the posterior fossamay represent reactive popliteal lymphadenopathy. Another focal indeterminate area of white blood cell scan accumulation posterior to the lateral femoral condyle in the area of joint effusion. This is nonspecific. Right total knee arthroplasty without definitive evidence of acute infection of the prosthesis withloosening. No evidence of abnormal uptake on bone marrow imaging. Possible uptake within heterotopic bone in the region of the infrapatellar tendon on white blood cell scan imaging may represent infection of the heterotopic bone or joint (cutout). /kelly Workstation ID: [id number] NM White Blood Cell SPECT CT Single Area Single Day Final Result Multiple focal soft tissue ulcerations anterior to the knee as well as along the posterolateral andanterolateral aspects of the right lower leg with associated tagged white blood cell accumulation suggesting focal areas of cellulitis. Indeterminate focal area of white blood cell scan accumulation in the region of the posterior fossamay represent reactive popliteal lymphadenopathy. Another focal indeterminate area of white blood cell scan accumulation posterior to the lateral femoral condyle in the area of joint effusion. This is nonspecific. Right total knee arthroplasty without definitive evidence of acute infection of the prosthesis withloosening. No evidence of abnormal uptake on bone marrow imaging. Possible uptake within heterotopic bone in the region of the infrapatellar tendon on white blood cell scan imaging may represent infection of the heterotopic bone or joint (cutout). ISIDORO/kelly Workstation ID: [id number] Ultrasound duplex arterial legs bilat Final Result US Doppler ankle/brachial index Final Result US Duplex Venous Leg LEFT Final Result XR Knee Right 2 Views (Standard) Final Result 1. Changes of prior right knee arthroplasty no evidence of hardware failure or loosening. 2. Inferior position of the patella raising the possibility of quadriceps tendon injury. 3. No acute fracture. 4. Anterior soft tissue swelling and irregularity. Workstation ID: [id number] Assessment and Plan: #1 complicated situation with history of right total knee replacement nonhealing wounds in the setting of peripheral vascular disease and failed flap skin graft now post vascular intervention and flap revision debridement, she has had hardware exposed and probably should be on some antibiotics and the decision will be whether it should be intravenous or possibly oral 2. 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 Peripheral vascular disease-as per vascular surgery 4. COPD-supplemental oxygen as needed, on prednisone short course 5. Rheumatoid arthritis-historically has been on methotrexate Disposition Comments: We will decide optimal discharge antibiotic regimen, continue cefepime for now Taqueria Little MD; pager [phone] * aRmsey Acosta - 11/16/2020 1:01 PM EDT Physical Therapy PHYSICAL THERAPY EVALUATION and TREATMENT NOTE PHYSICAL THERAPY EVALUATION Skilled Therapy Needs After Discharge Anticipate Resolution of Current Assessment Limitations Including: Mechanical Barriers Are Skilled Therapy Services Needed After Discharge: Yes Intensity of Skilled Therapy: 2-3 days per week Anticipated Duration of Skilled Therapy: Duration 7 - 10 days DME Recommendation: None (Pt has required DME at this date. ) Rehab Potential: Good, For goals Outcomes Measures Prior Function - Basic Mobility Raw Score: 24 Points Prior Function - Basic Mobility % Impaired: 0% AM-PAC Basic Mobility Raw Score: 16 Points AM-PAC Basic Mobility % Impaired: 47.12% Physical Therapy Assessment History: The following factors influence the patient's participation in the PT plan of care: Personal Factors: Age Environmental Factors: Steps to enter home, Lives alone The following co-morbidities (from this admission or prior) influence the patient's participation in this plan of care: Pt admitted secondary to previous R TKA non healing wound, leading to an angioplasty. Number of History elements affecting this patient's PT plan of care: 3 or more Examination of Body Systems: The patient presents with: Musculoskeletal impairments: Strength, Functional Endurance Neurologic Impairments: Coordination, Balance Cardiopulmonary Impairments: Activity Tolerance Integumentary Impairments: Tissue Healing (R knee ). These impairments result in limitations of Gait, Functional Transfers, Stair- Climbing, Safety, Safety Awareness, Activity Tolerance, Insight. These impairments result in restrictions of Household mobility, Community mobility. Number of Body Systems elements affecting this patient's PT plan of care: 3 or more. Clinical Presentation: The patient's clinical presentation for this PT evaluation is evolving with changing characteristics as evidenced by current PT documentation. Activity Tolerance Activity Tolerance: Tolerates 20 - 30 min activity with multiple rests Therapy Precautions Orthotic Devices: No Weight Bearing Status: WFL General Rehab Precautions: Fall risk Balance Assessment Sitting Balance - Static: Independent, with back unsupported Sitting Balance - Dynamic: Supervision, with back unsupported Standing Balance - Static: Contact guard assist Sidehand - Standing Static: wheeled walker Standing Balance - Dynamic: Contact guard assist Sidehand - Standing Dynamic: wheeled walker Bed Mobility Rolling: Supervision, Head of bed elevated Supine to Sit: Supervision, Head of bed elevated Sit to Supine: (Not tested. Pt seated in chair end of session.) Sidehand: bedrails Transfers Sit to Stand: Contact guard assist Sidehand: wheeled walker Gait/Locomotion Gait Assistance: Contact guard assist Assistive Device: wheeled walker Distance: 80 Feet Pattern: step to, wide base of support, trendelenburg, shuffle, decreased norah (steps per minute), R decreased step length, L decreased step length (R lateral lean ) Home Living Obtained Home Living and PLOF info from: Patient Lives With: Alone Type of Home: House Home Layout: One level, Laundry in basement Steps to enter home: Yes Rails to enter home: 1 rail Number of stairs to enter home: 2 Bathroom Shower/Tub: Tub/shower unit Bathroom Toilet: Standard Bathroom Equipment: Grab bars in shower, Shower chair Bathroom Accessibility: Accessible Mobility Equipment: Cane, Wheeled walker, Rollator Prior Level of Function Receives Help From: Family Level of Mead - Transfers/Ambulation/Mobility: Independent with functional transfers, Independent with household ambulation, Independent with community ambulation Level of Mead - ADLs: Independent Level of Mead - Homemaking: Independent Driving: Patient drives Subjective Impression - Prior Function: Pt reports no use of AD for household distances, rather guides herself on surfaces. Pt used rollator for community distances w/ rollator. Pt indep w/ ADL's. PHYSICAL THERAPY TREATMENT NOTE Total Treatment Time (Total Session Time): 26 Minutes Timed Code Treatment Minutes: 10 Minutes Neuromuscular Reeducation Gait Training Skilled Intervention Provided: verbal cues, tactile cues For: breathing techniques, device adjustment fit to patient, device management and safe use of device, gait sequence, LE management, UE management, LE positioning, UE positioning, postural alignment,midline orientation, weight shifting Resulting in: improved activity tolerance, improved performance, improved safety Therapeutic Activities Bed Mobility Skilled Intervention Provided: verbal cues, tactile cues For: LE management, LE positioning, UE management, UE positioning, logroll technique, postural alignment Resulting in: improved activity tolerance, improved performance, improved safety Transfers Skilled Intervention Provided: verbal cues For: LE management, LE positioning, UE management, UE positioning, postural alignment Resulting in: improved activity tolerance, improved performance, improved safety Functional Transfers (Car and/or Toilet Transfers) Therapeutic Exercises Supine Exercises: Pt instructed to perform seated: marches, LAQ, and ankle pumps to maintain BF. Skilled Intervention Provided: verbal cues For: achieving full ROM as tolerated Resulting in: improved functional strength / ROM Additional Treatment Details Pt required max cuing to maintain R UE on FWW. Pt demonstrated no LOB, but sig R lateral lean w/ gait training. Past Medical History: Diagnosis Date Cancer (HCC) colon COPD (chronic obstructive pulmonary disease) (HCC) PAD (peripheral artery disease) (HCC) Pituitary abnormality (HCC) Rheumatoid aortitis Past Surgical History: Procedure Laterality Date AORTOGRAM WITH RUNOFFS POSSIBLE INTERVENTION Bilateral 11/13/2020 Procedure: AORTOGRAM BILATERAL LOWER EXTREMITY ANGIOGRAM WITH RUNOFFS POSSIBLE INTERVENTION AND OTHER PROCEDURES INDICATED; Surgeon: Percy Yanez MD; Location: [facility] Main OR; Service: Gen-Vascular JOINT REPLACEMENT ORTHOPEDIC SURGERY right knee, left hip For complete objective data, detailed plan of care and patient education refer to: PT Evaluation flowsheet, PT Evaluation and Treatment flowsheet, PT Treatment flowsheet, patient Plan of Care, Plan of Care progress note, and Patient Education. This note stands as the current Discharge Summary upon patient discharge from the hospital or completion of Physical Therapy Plan. * Eboni Riley LSW - 11/16/2020 9:04 AM EDT Associated Order(s): IP CONSULT TO CARE MANAGEMENT Care Management Progress Note Patient Name: Jessica Gonzalez Working Discharge Plan: Home Transportation Plan: TBD Pending/Established Referrals: Pt planned for OR today, 11/16 - SW following for post op recs to determine most appropriate level of care post discharge. Will continue following. Barriers to Discharge/Plan for Follow Up: OR 11/16, follow post op recs * Marti Pickens OT - 11/15/2020 12:55 PM EDT Occupational Therapy OCCUPATIONAL THERAPY EVALUATION AND TREATMENT NOTE Needing clearance to resume I&D with grafting Right LE. Today's sx was cancelled due to respiratory issues OCCUPATIONAL THERAPY EVALUATION Skilled Therapy Needs After Discharge Are Skilled Therapy Services Needed After Discharge: No DME Recommendation: None Rehab Potential: Good Outcomes Measures Prior Function Daily Activity Raw Score: 24 Prior Function Daily Activity % Impaired: 0% AM-PAC Daily Activity Raw Score: 17 AM-PAC Daily Activity % Impaired: 50.11% Occupational Therapy Assessment The patient's current functional participation deficits are grooming, LE dressing, bathing, toileting, functional mobility. This reduced independence will limit their life roles of premorbid level individual. The patient's co morbidities do affect patient performance in the above activities and roles. The performance deficits are a result of musculoskeletal impairment(s) in generalized debility including strength, balance, acitvity tolerance, problem solving, sequencing, insight, safety, and emotional lability, motivation, knowledge deficit. The patient's home setup is a jackerman, family / caregiver support is a jackerman, transportation is a jackerman for return to prior level of function. The patient's awareness of own capacity and performance is a jackerman to return to prior level of function. During the assessment, minimal to moderate modification of task was required and several treatment options were identified in the plan of care. This consultation required expanded review of the medical and therapy history. Activity Tolerance Activity Tolerance: Tolerates 20 - 30 min activity with multiple rests Therapy Precautions Orthotic Devices: No General Rehab Precautions: Fall risk Cognition Arousal/Alertness: Appropriate responses to stimuli Orientation Level: Oriented X4 Executive functioning: Insight, Processing delay, Sequencing, Planning / Organizing, Min impairment Safety Judgment: Decreased awareness of need for assistance, Decreased awareness of need for safety Problem Solving: Assistance required to identify errors made, Assistance required to generate solutions, Assistance required to implement solutions Attention: Attends to distracted environment Hearing Status: Hard of hearing Social Interaction: Flat affect, Cooperative, Irritable ADL LE Dressing: Moderate assist Bed Mobility Rolling: Contact guard assist Supine to Sit: Contact guard assist Functional Transfers Sit to Stand: Contact guard assist Bed to Chair Transfers: Contact guard assist Sidehand: wheeled walker Home Living Obtained Home Living and PLOF info from: Patient Lives With: Alone Type of Home: House Home Layout: One level, Laundry in basement Steps to enter home: Yes Rails to enter home: 1 rail Number of stairs to enter home: 2 Bathroom Shower/Tub: Tub/shower unit Bathroom Toilet: Standard Bathroom Equipment: Grab bars in shower, Shower chair Bathroom Accessibility: Accessible Mobility Equipment: Cane, Wheeled walker, Rollator Prior Level of Function Receives Help From: Family Level of Mead - Transfers/Ambulation/Mobility: Independent with functional transfers, Independent with household ambulation, Independent with community ambulation Level of Mead - ADLs: Independent Level of Mead - Homemaking: Independent OCCUPATIONAL THERAPY TREATMENT NOTE Total Treatment Time (Total Session Time): 15 Minutes Timed Code Treatment Minutes: 8 Minutes Cognitive Skills Development Skilled Intervention Provided: verbal cues, tactile cues, demonstration, engaged in wayfinding activities, environmental setup/modification, facilitation, grading task For: compensatory techniques, increased awareness of the environment, increased self-awareness Resulting In: improved activity tolerance, increased insight into deficits, improved problem solving Self-Care / ADL LE Dressing - Skilled Intervention Provided: verbal cues, tactile cues, demonstration, environmental setup/modification, facilitation, monitored patient's safety & tolerance LE Dressing - For: LE management, LE positioning, UE management, UE positioning, adaptive techniques for lower body ADLs, attention to task, clothing modification to facilitate ease of dressing, compensatory strategies, efficient movement LE Dressing - Resulting In: improved ability to understand / adhere to precautions, improved activity tolerance, improved attention, improved functional independence, improved participation in ADL task, improved performance with ADLs, improved safety, improved sequencing Therapeutic Activities Bed Mobility Skilled Intervention Provided: verbal cues, tactile cues, demonstration, environmental setup/modification, facilitation, monitoring patient response with activity For: LE management, LE positioning, UE management, UE positioning, energy conservation, efficient movement, initiation of task, logroll technique, postural alignment Resulting In: improved activity tolerance, improved awareness, improved balance, improved performance, improved safety, increased initiation in mobility task(s) Functional Transfers Skilled Intervention Provided: verbal cues, tactile cues, demonstration, environmental setup/modification, facilitation, provided step by step instructions For: LE management, LE positioning, UE management, UE positioning, attention to task, compensatory strategies, controlled descent, energy conservation, increased participation in mobility task, initiation of task, necessary precautions, postural alignment Resulting In: improved activity tolerance, improved awareness, improved balance, improved performance, improved safety, increased insight into deficits Additional Treatment Details patient angry due to cancellation of LE sx. min vc for LE dressing using figure four method. min vcfor hand/walker placement sequence during std pvt to chair Past Medical History: Diagnosis Date Cancer (HCC) colon COPD (chronic obstructive pulmonary disease) (HCC) PAD (peripheral artery disease) (HCC) Pituitary abnormality (HCC) Rheumatoid aortitis Past Surgical History: Procedure Laterality Date AORTOGRAM WITH RUNOFFS POSSIBLE INTERVENTION Bilateral 11/13/2020 Procedure: AORTOGRAM BILATERAL LOWER EXTREMITY ANGIOGRAM WITH RUNOFFS POSSIBLE INTERVENTION AND OTHER PROCEDURES INDICATED; Surgeon: Percy Yanez MD; Location: [facility] Main OR; Service: Gen-Vascular JOINT REPLACEMENT ORTHOPEDIC SURGERY right knee, left hip For complete objective data, detailed plan of care and patient education refer to: OT Evaluation flowsheet, OT Evaluation and Treatment flowsheet, OT Treatment flowsheet, patient Plan of Care, Plan of Care progress note, and Patient Education. This note stands as the current Discharge Summary upon patient discharge from the hospital or completion of Occupational Therapy Plan of Care. * Jose Angel Cuellar RN - 11/14/2020 5:54 AM EDT Associated Order(s): IP CONSULT TO INTERVENTIONAL RADIOLOGY See vascular note * Dl Patiño MD - 11/10/2020 4:10 PM EDT Images from the original note were not included. Patient Name: Jessica Gonzalez MR #: [id number] : 1945 Referring Physician: Stuart Zamora DO Physicians: Stuart Zamora DO (Family); Assessment and Plan: As this wound is overlying a total knee prosthesis, I think there is some urgency to sort this out and reconstruct it if possible. I think she should be admitted to the medical service. She requires a bone scan and white blood cell scan to exclude loosening or osteomyelitis of the prosthesis, noninvasive Doppler studies and a CTA to evaluate the patency of her sural artery. We will admit her to the hospital today and follow her along during her stay. I took cultures of her wound at the bedside. Chief Complaint/Reason for Visit: *open wound right knee History of Present Illness: Jessica Gonzalez is a 75-year-old lady from [place], [place], who has a previous history of a total knee prosthesis on the right side. She apparently had developed an ulceration over her patella, that was managed in [place] with what appears to be a lateral gastroc muscle flap and skin graft. Despite their best efforts, the flap ulcer persists in the pretibial region slightly past midline. I have been asked to see her in this regard. She gives no history of peripheral vascular disease. She does have COPD, is on inhalers. History: No past medical history on file. No past surgical history on file. No family history on file. Social History Socioeconomic History Marital status: Unknown Spouse name: Not on file Number of children: Not on file Years of education: Not on file Highest education level: Not on file Occupational History Not on file Tobacco Use Smoking status: Not on file Substance and Sexual Activity Alcohol use: Not on file Drug use: Not on file Sexual activity: Not on file Other Topics Concern Not on file Social History Narrative Not on file Social Determinants of Health Financial Resource Strain: Difficulty of Paying Living Expenses: Food Insecurity: Worried About Running Out of Food in the Last Year: Ran Out of Food in the Last Year: Transportation Needs: Lack of Transportation (Medical): Lack of Transportation (Non-Medical): Physical Activity: Days of Exercise per Week: Minutes of Exercise per Session: Stress: Feeling of Stress : Social Connections: Frequency of Communication with Friends and Family: Frequency of Social Gatherings with Friends and Family: Attends [employer] Services: Active Member of Clubs or Organizations: Attends Club or Organization Meetings: Marital Status: Allergy Information: I have reviewed the patient's allergies. Patient has no allergy information on record. Home Medications: There are no discharge medications for this patient. Review of Systems: Review of Systems Constitutional: Negative for activity change, appetite change, chills, diaphoresis, fatigue, fever and unexpected weight change. HENT: Negative for congestion, dental problem, drooling, ear discharge, ear pain, facial swelling, hearing loss, mouth sores, nosebleeds, postnasal drip, rhinorrhea, sinus pressure, sneezing, sore throat, tinnitus, trouble swallowing and voice change. Eyes: Negative for photophobia, pain, discharge, redness, itching and visual disturbance. Respiratory: Positive for wheezing. Negative for apnea, cough, choking, chest tightness, shortness of breath and stridor. Copd Cardiovascular: Negative for chest pain, palpitations and leg swelling. Gastrointestinal: Negative for abdominal distention, abdominal pain, anal bleeding, blood in stool,constipation, diarrhea, nausea and rectal pain. Endocrine: Negative for cold intolerance, heat intolerance, polydipsia, polyphagia and polyuria. Genitourinary: Negative for decreased urine volume, difficulty urinating, dysuria, enuresis, flank pain, frequency, genital sores, hematuria and urgency. Musculoskeletal: Negative for arthralgias, back pain, gait problem, joint swelling, myalgias, neck pain and neck stiffness. Skin: Negative for color change, pallor and rash. Allergic/Immunologic: Negative for environmental allergies, food allergies and immunocompromised state. Neurological: Negative for dizziness, tremors, seizures, syncope, facial asymmetry, speech difficulty, weakness, light-headedness, numbness and headaches. Hematological: Negative for adenopathy. Does not bruise/bleed easily. Psychiatric/Behavioral: Negative for agitation, behavioral problems, confusion, decreased concentration, dysphoric mood, hallucinations and self-injury. The patient is not nervous/anxious and is not hyperactive. Physical Examination: Vital Signs: BP 117/65 (BP Location: Left arm, Patient Position: Sitting, BP Cuff Size: Adult) Pulse 97 Temp98.2 F (36.8 C) (Oral) Ht 4' 11 Wt 61.2 kg (135 lb) BMI 27.27 kg/m Physical Exam Constitutional: Appearance: She is well-developed. HENT: Head: Normocephalic. Right Ear: External ear normal. Left Ear: External ear normal. Nose: Nose normal. Eyes: General: No scleral icterus. Left eye: No discharge. Pupils: Pupils are equal, round, and reactive to light. Neck: Thyroid: No thyromegaly. Vascular: No JVD. Trachea: No tracheal deviation. Cardiovascular: Rate and Rhythm: Normal rate and regular rhythm. Heart sounds: Normal heart sounds. No murmur heard. No friction rub. No gallop. Pulmonary: Effort: No respiratory distress. Breath sounds: No wheezing or rales. Chest: Chest wall: No tenderness. Abdominal: General: There is no distension. Palpations: There is no mass. Tenderness: There is no abdominal tenderness. There is no guarding or rebound. Musculoskeletal: General: No tenderness or deformity. Cervical back: Normal range of motion and neck supple. Lymphadenopathy: Cervical: No cervical adenopathy. Skin: Coloration: Skin is not pale. Findings: No erythema or rash. Neurological: Cranial Nerves: No cranial nerve deficit. Motor: No abnormal muscle tone. Coordination: Coordination normal. Deep Tendon Reflexes: Reflexes normal. Psychiatric: Behavior: Behavior normal. Thought Content: Thought content normal. Judgment: Judgment normal. * Percy Yanez MD - 11/10/2020 7:48 AM EDT Associated Order(s): IP CONSULT TO VASCULAR SURGERY [facility] Vascular Surgery Consultation Note Chief Complaint / Reason for Consultation PAD History of Present Illness Patient is a 75 y.o. female smoker who presented to [facility] ED yesterday with cc of non-healing RLE wound. Patient states wound has been present for ~5 months s/p plastic surgery intervention in [place], [place]. Hx of total knee arthroplasty and failed muscle flap per report. She also complains of L medial ankle non-healing wound. Admits she ambulates at home with walker. Denies claudication, rest pain, extremity weakness or numbness. Admits recent hx of IVC filter placement and removal in [place], [place],otherwise denies hx of prior vascular intervention. YENI R 0.97, L 0.69. Arterial duplex shows possible R mid SFA (294 cm/s), R dst SFA (337 cm/s), L EIA (260 cm/s) and L mid SFA (683 cm/s) stenoses and possible L PT occlusion. LLE venous duplex negative for SVT or DVT. Seen today laying in bed, alert and awake with no major complaints. Patient denies pain. Denies hx of MD, CVA, DVT or PE. Admits smoking ~4 cigarettes/day. Denies EtOH or illicit drug use. On xarelto for past months s/p plastic surgery intervention. Review of Systems Denies fevers, chills, chest pain, shortness of breath, nausea, vomiting, hematemesis, diarrhea, constipation, melena, hematochezia, wt changes, vision problems, blindness, hearing problems, facial droop, slurred speech, dysuria or rashes. Past Medical History: Diagnosis Date Cancer (HCC) Pituitary abnormality (HCC) Past Surgical History: Procedure Laterality Date JOINT REPLACEMENT Jessica Gonzalez Home Medication Instructions Prior to Surgery SURYA:[id number] Printed on:11/10/20 6890 Medication Information Take last dose on Take the morning of surgery Comment(s) albuterol 90 mcg/actuation inhaler Inhale 2 puffs every 6 (six) hours as needed for wheezing . ascorbic acid, vitamin C, (ascorbic acid with ambar hips) 500 MG tablet Take 500 mg by mouth daily . buPROPion (WELLBUTRIN SR, ZYBAN) 150 MG 12 hr tablet Take 150 mg by mouth 2 (two) times a day . cholecalciferol, vitamin D3, 1,000 unit tablet Take 1,000 Units by mouth daily . cyanocobalamin (B-12) 100 MCG tablet Take 100 mcg by mouth daily . doxycycline hyclate (VIBRAMYCIN) 100 MG capsule Take 100 mg by mouth daily . folic acid (FOLVITE) 1 MG tablet Take 1 mg by mouth daily . furosemide (LASIX) 20 MG tablet Take 20 mg by mouth daily . glycopyrrolate-formoteroL (Bevespi Aerosphere) 9-4.8 mcg HFAA Inhale 2 puffs 2 (two) times a day . methotrexate (TREXALL) 2.5 MG tablet Take 10 mg by mouth once a week On friday . rivaroxaban (XARELTO) 20 mg Tab Take 20 mg by mouth every evening . No Known Allergies Social History Socioeconomic History Marital status: Single Spouse name: Not on file Number of children: Not on file Years of education: Not on file Highest education level: Not on file Occupational History Not on file Tobacco Use Smoking status: Current Every Day Smoker Packs/day: 0.10 Smokeless tobacco: Never Used Substance and Sexual Activity Alcohol use: Never Drug use: Never Sexual activity: Not on file Other Topics Concern Not on file Social History Narrative Not on file Social Determinants of Health Financial Resource Strain: Difficulty of Paying Living Expenses: Food Insecurity: Worried About Running Out of Food in the Last Year: Ran Out of Food in the Last Year: Transportation Needs: Lack of Transportation (Medical): Lack of Transportation (Non-Medical): Physical Activity: Days of Exercise per Week: Minutes of Exercise per Session: Stress: Feeling of Stress : Social Connections: Frequency of Communication with Friends and Family: Frequency of Social Gatherings with Friends and Family: Attends [employer] Services: Active Member of Clubs or Organizations: Attends Club or Organization Meetings: Marital Status: History reviewed. No pertinent family history. - No history of bleeding or clotting disorders Vital Signs Vitals: 11/10/20 0450 11/10/20 0505 11/10/20 0635 11/10/20 0744 BP: 104/69 113/68 BP Location: Right arm Right arm Patient Position: Lying Lying Pulse: 88 92 Resp: 16 14 16 Temp: 99 F (37.2 C) 98.9 F (37.2 C) TempSrc: Oral Oral SpO2: 92% (!) 85% Weight: Height: Physical Examination General: laying in bed, no apparent distress Psychiatric: affect appropriate HEENT: Atraumatic, sclera aninteric. Mucous membranes moist. Neurologic: face symmetric, speech clear, cognition clear, vision and hearing grossly intact. Neck: supple, no bruits Chest: unlabored breathing, on room air. Expiratory wheeze noted b/l Cardiac: Regular rate and rhythm Abdominal: soft, nontender Skin/integumentary: no rashes. Extremities: warm and well perfused - bilateral upper extremity motorsensory intact - bilateral lower extremity motorsensory intact Vascular exam: - R femoral: palpable 2+ - L femoral: palpable 1+ - R DP: multiphasic on doppler - R PT: multiphasic on doppler - L DP: monophasic on doppler - L PT: monophasic on doppler (strong) RLE: Full thickness knee ulceration with no active drainage or malodor LLE: abrasion noted mid/medial calf and small ulcer noted medial ankle. Erythema and mild edema also noted Labs Lab Results Component Value Date WBC 14.61 (H) 11/10/2020 HGB 10.0 (L) 11/10/2020 HCT 30.6 (L) 11/10/2020 MCV 89.5 11/10/2020 PLT 306 11/10/2020 Lab Results Component Value Date NA 139 11/10/2020 K 3.4 (L) 11/10/2020 CL 102 11/10/2020 BUN 23 11/10/2020 CREATININE 1.01 11/10/2020 No results found for: GLU Lab Results Component Value Date CALCIUM 8.3 (L) 11/10/2020 Imaging: US LLE venous duplex: Conclusions * No evidence of deep or superficial vein thrombosis in the left lower extremity. US doppler YENI: Conclusions * Right. * Right ankle brachial index is normal. 0.97. * Right toe brachial index is normal. * Left. * Left ankle brachial index indicates moderate peripheral artery disease. 0.69. * Left toe brachial index is abnormal. . Doppler Rt Posterior Tibial: Biphasic Rt Dorsalis Pedis: Biphasic Lt Posterior Tibial: Monophasic Lt Dorsalis Pedis: Monophasic PVR Rt Ankle: Diminished Lt Ankle: Diminished Rt Digit: Diminished Lt Digit: Absent Rt Brachial: 117 Rt Posterior Tibial: 121 Rt Dorsalis Pedis: 117 Rt Digit: 93 0.97 0.94 0.74 Lt Brachial: 125 Lt Posterior Tibial: 86 Lt Dorsalis Pedis: 55 0.69 0.44 US BLE arterial duplex: Conclusions * Right. * Hemodynamically significant stenosis (70 -99%) of the right mid and distal superficial femoral artery. * Left. * Hemodynamically significant stenosis (70 -99%) of the left external iliac artery and mid superficial femoral artery. * Probable occlusion of the left distal posterior tibial artery. * Tech limits. * Technically difficult exam due to patient movement, tissue composition, and vessel depth. 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 PSV 135 cm/s Right Prox Profunda PSV 63 cm/s Right Prox SFA PSV 104 cm/s Right Mid SFA PSV 294 cm/s Right Distal SFA PSV 337 cm/s Right Prox Pop A PSV 84 cm/s Right Mid Pop A PSV 50 cm/s Right Distal Pop A PSV 56 cm/s Right Prox ZEHRA PSV 76 cm/s Right Mid ZEHRA PSV 35 cm/s Right Distal ZEHRA PSV 29 cm/s Right Prox Rafael A PSV 67 cm/s Right Mid Rafael A PSV 39 cm/s Right Distal Rafael A PSV 27 cm/s Right Prox JACK MACHINE OPERATOR PSV 46 cm/s Right Mid JACK MACHINE OPERATOR PSV 57 cm/s Right Distal JACK MACHINE OPERATOR PSV 81 cm/s Right YENI 0.97 Left Arterial Measurements Name Value Left PSV Left Distal EIA PSV 260 cm/s Left Mid PAPER CONE MACHINE OPERATOR PSV 163 cm/s Left Prox Profunda PSV 111 cm/s Left Prox SFA PSV 191 cm/s Left Mid SFA PSV 683 cm/s Left Distal SFA PSV 93 cm/s Left Prox Pop A PSV 78 cm/s Left Mid Pop A PSV 75 cm/s Left Distal Pop A PSV 81 cm/s Left Prox ZEHRA PSV 127 cm/s Left Mid ZEHRA PSV 71 cm/s Left Distal ZEHRA PSV 42 cm/s Left Prox Rafael A PSV 44 cm/s Left Mid Rafael A PSV 51 cm/s Left Distal Rafael A PSV 78 cm/s Left Prox JACK MACHINE OPERATOR PSV 71 cm/s Left Mid JACK MACHINE OPERATOR PSV 85 cm/s Left Distal JACK MACHINE OPERATOR PSV 0 cm/s Left YENI 0.69 Impression and plan: Pt is a 75 y.o. female with PVD (L>R) and non-healing BLE wounds (R>L). - Labs reviewed - JERICA; Cr 1.34 on admission, normalized today at 1.01, continue to monitor - NIVS reviewed - Continue hold on xarelto (DVT prophylaxis) at this time, admits last dose 11/08 in PM - Lipid panel resulted; recommend daily 20 mg Lipitor - Recommend starting 81 mg ASA - Plan for OR Monday 11/13 for BLE angiogram, possible intervention and other procedures as indicated; Informed consent was obtained after discussion of procedure and its potential benefits, alternatives, and risks, including (but not limited to) bleeding, infection, allergy to dye, kidney injury, nerve injury, limb loss, heart attack, stroke and . Discussed alternatives and their benefits and risks, including medical management alone. All questions answered. - The procedure, alternatives, and risk/benefit of paclitaxel-based vascular devices has been discussed with the patient who consents to their potential use. - D/w patient importance of smoking cessation; no nicotine products - BLE wounds per plastics - Medical mgmt per primary - Patient admits preference to f/u with surgeon who managed prior IVC filter for continued mgmt of her PVD. Would benefit from angio targeting LLE as well. Referral to be placed prior to discharge - Patient to be discussed with Dr. Yanez, final plan per Dr. Beau Meade PA-C 11/10/20 I performed a history and physical examination, reviewed pertinent clinical data, including laboratory studies and imaging studies and discussed with the physician financial planning assistant the management of this patient PVD R SFA disease R knee severe deep wound with h/o prosthetic knee Wound present x 5 mo Plan for angio targeting RLE via L femoral approach Monday 11/13 Will set patient up for f/u in [place] for LLE intervention I agree with the findings and assessments noted above. Percy Yanez MD, [facility] Vascular and Endovascular Surgeon * Matt Ogden DPM - 11/09/2020 6:21 PM EDT Associated Order(s): IP CONSULT TO PLASTIC SURGERY Plastic Surgery Consult Consultation for: Right knee wound Subjective: Jessica Gonzalez is a 75 y.o. female who presents to [facility] for evaluation of right knee wound. 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 Has apparently had surgical treatment with muscle flap in the past, but at this time the flap appears to have failed. She was seen and evaluated in clinic by Dr. Patiño today, and was told to come to [facility] for admission and further testing. Her pain is well controlled at this time. She denies any constitutional symptoms or any other complaints at this time. Past Medical History: Diagnosis Date Cancer (HCC) Pituitary abnormality (HCC) Past Surgical History: Procedure Laterality Date JOINT REPLACEMENT No Known Allergies Social History Socioeconomic History Marital status: Single Spouse name: Not on file Number of children: Not on file Years of education: Not on file Highest education level: Not on file Occupational History Not on file Tobacco Use Smoking status: Current Every Day Smoker Packs/day: 0.10 Smokeless tobacco: Never Used Substance and Sexual Activity Alcohol use: Never Drug use: Never Sexual activity: Not on file Other Topics Concern Not on file Social History Narrative Not on file Social Determinants of Health Financial Resource Strain: Difficulty of Paying Living Expenses: Food Insecurity: Worried About Running Out of Food in the Last Year: Ran Out of Food in the Last Year: Transportation Needs: Lack of Transportation (Medical): Lack of Transportation (Non-Medical): Physical Activity: Days of Exercise per Week: Minutes of Exercise per Session: Stress: Feeling of Stress : Social Connections: Frequency of Communication with Friends and Family: Frequency of Social Gatherings with Friends and Family: Attends Scientology Services: Active Member of Clubs or Organizations: Attends Club or Organization Meetings: Marital Status: Review of Systems - Negative except as reported in HPI Physical Exam Physical Examination: General appearance - alert, well appearing, and in no distress Mental status - alert, oriented to person, place, and time Eyes - pupils equal and reactive, extraocular eye movements intact Chest - no tachypnea, retractions or cyanosis Heart - normal rate and regular rhythm Abdomen - soft, nontender, nondistended, no masses or organomegaly Neurological - alert, oriented, normal speech, no focal findings or movement disorder noted Musculoskeletal - no joint tenderness, deformity or swelling, no muscular tenderness noted Extremities - full thickness ulceration to the right knee with mostly fibrotic/necrotic wound base;no malodor; no erythema, fluctuance, or crepitus noted. NO drainage appreciated. Imaging XR right knee: FINDINGS: The patient is status post prior total right knee arthroplasty. There is no evidence of hardware failure or loosening. No acute fracture is seen. The patella appears low riding. Anterior soft tissue swelling and irregularity is present. There are diffuse vascular calcifications. IMPRESSION: 1. Changes of prior right knee arthroplasty no evidence of hardware failure or loosening. 2. Inferior position of the patella raising the possibility of quadriceps tendon injury. 3. No acute fracture. 4. Anterior soft tissue swelling and irregularity. Assessment/Plan This is a 75 y.o. 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 Orders and nursing communication placed. - Bone scan with WBC labeled scan ordered to evaluate for possible osteomyelitis of RLE - Further treatment course will be dependant upon the results of the previously mentioned results. - Discussed with Dr. Patiño. Further treatment planning per the attending physician. Thank you for the consult. Please feel free to call with questions. Associated attestation - Dl Patiño MD - 11/10/2020 4:24 PM EDT Patient examined and chart reviewed. I agree with the resident/ CONTRACT NEGOTIATION SPECIALIST's evaluation and plan. Consult dictated. documented in this [id number] History and physical note* Dl Patiño MD - 11/22/2020 10:26 AM EDT INTERVAL HISTORY AND PHYSICAL Patient Name: Jessica Gonzalez Admit Date: 6160626 MR #: [id number] : 1945 The H&P has been reviewed and the patient has been examined. I concur with the findings of the H&P. There are no significant changes. It is appropriate to proceed with the planned procedure. Dl Patiño MD 11/22/2020 10:26 AM * Dl Patiño MD - 11/17/2020 12:47 PM EDT INTERVAL HISTORY AND PHYSICAL Patient Name: Jessica Gonzalez Admit Date: 6160626 MR #: [id number] : 1945 The H&P has been reviewed and the patient has been examined. I concur with the findings of the H&P. There are no significant changes. It is appropriate to proceed with the planned procedure. Dl Patiño MD 11/17/2020 12:47 PM * Dl Patiño MD - 11/15/2020 10:52 AM EDT INTERVAL HISTORY AND PHYSICAL Patient Name: Jessica Gonzalez Admit Date: 6160626 MR #: [id number] : 1945 The H&P has been reviewed and the patient has been examined. I concur with the findings of the H&P. There are no significant changes. It is appropriate to proceed with the planned procedure. Dl Patiño MD 11/15/2020 10:52 AM * Christ Iqbal MD - 11/09/2020 9:24 PM EDT HMS HISTORY AND PHYSICAL Patient Name: Jessica Gonzalez : 1945 MR #: [id number] Admit Date: 6160626 Physicians: Stuart Zamora DO (Family); Dl Patiño MD (Referring) Jessica Gonzalez is a 75 y.o. female patient of Stuart Zamora DO with history of Colon CA s/p partial colectomy, NF L hip s/p replacement, TKA complicated by infection requiring debridement and grafting presented with nonhealing surgical wound Non-healing surgical wound Surgical wound infection H/o TKA a few months ago in [place] XR on admission unremarkable besides possible quadriceps tendon injury No SIRS currently; WBC 12k Bone scan ordered Been on chronic Doxy since L Hip NF 4 yrs ago; resumed for now Follows with Dr. Patiño(consulted) PAD YENI LLE abnormal on admission No signs of acute ischemia at this time Home Xarelto(taking it for post-op prophx) Vascular consulted Preop clearance METs>4 No cardiac or resp symptoms No h/o either Dx Vascular as above, otherwise may proceed to OR w/o further cardiac testing Elevated Cr Cr 1.3; unknown baseline BUN 30; euvolemic Held home Lasix Recheck for stability RA No flare currently Home Methotrex held esmer-op Admitted From: Home Medication Reconciliation: Verified Code Status: No Order Quality Measures DVT Prophylaxis: Lovenox Sims Catheter: None Disposition Outpatient Testing: TBD Chief Complaint Nonhealing wound R knee History of Present Illness Pt underwent R TKA ~4-5 months ago in [place], but unfortunately the wound never completely healed and it was draining for some time post-op, however it stopped draining a while ago, although remained open. Denies tenderness, redness, fever, numbness, tingling, CP, SOB, abd pain, or any other symptoms. She's been on Doxy since 4 years ago when she was Dx with L hip NF and underwent replacement for that. She also has a h/o non-metastaszed colon CA that was treated with partial colectomy. She's very independent and able to perform her ADLs w/o issues. Past Medical History Past Medical History: Diagnosis Date Cancer (HCC) Pituitary abnormality (HCC) Past Surgical History Past Surgical History: Procedure Laterality Date JOINT REPLACEMENT Family History History reviewed. No pertinent family history. Social History Social History Tobacco Use Smoking Status Current Every Day Smoker Packs/day: 0.10 Smokeless Tobacco Never Used Social History Substance and Sexual Activity Alcohol Use Never Social History Substance and Sexual Activity Drug Use Never Allergy Information I have reviewed the patient's allergies. Patient has no known allergies. Home Medications Home medications were reviewed. Review Of Systems All systems have been reviewed and are negative except as noted in HPI or below Constitutional: Denies fever, chills, weight loss CV: Denies chest pain, palpitations, peripheral edema Respiratory: Denies shortness of breath, cough, wheezing GI: Denies abdominal pain, nausea, vomiting, diarrhea, constipation Physical Examination BP 131/71 Pulse 99 Temp 98.3 F (36.8 C) (Oral) Resp 18 Ht 4' 11 Wt 61.2 kg (135 lb) SpO2 92% BMI 27.27 kg/m General Appearance: alert, well appearing, and in no acute distress HEENT: Head- normocephalic; Eyes- PERRLA, EOMI; Ears- external auditory canals clear, hearing intact; Nose- no nasal discharge; Throat- oropharynx normal Cardiovascular: regular rate and rhythm; normal S1, S2; no murmurs, rubs, clicks or gallops; no peripheral edema Respiratory: lungs clear to auscultation; without wheezes, rales or rhonchi Abdomen: soft, non-tender, non-distended; positive bowel sounds Neurological: alert, oriented x 3, normal speech; no focal findings or movement disorder noted Musculoskeletal: L hip deformity; limited ROM R knee Skin: dressing over RLE. Two, small superficial ulcers, one over L heel, the other over L medial mal. Psych: normal mood and affect Laboratory and Additional Data Reviewed Laboratory 11/09/20 10:24 PM Microbiology 11/09/20 10:24 PM Cardiology 11/09/20 10:24 PM Medications 11/09/20 10:24 PM Transcriptions 11/09/20 10:24 PM Expected Discharge/Time Spent The total time spent for this visit was 70 minutes. Greater than 50% of the time was spent in counseling and coordination of care regarding wound infection. documented in this [id number] Emergency department Note* Fernanda Nichols, ERWIN - 11/09/2020 4:36 PM EDT Images from the original note were not included. ED PROVIDER NOTE [facility] EMERGENCY DEPARTMENT NAME: Jessica Gonzalez AGE: 75 y.o. : 1945 VISIT DATE: 11/09/2020 CSN: [id number] PCP: Stuart Zamora DO Chief Complaint Patient presents with Wound Check referral dr patiño 75-year-old female patient with history of cancer presents for wound check. Patient saw Dr. Patiño this afternoon and he would like her admitted to the hospital for possible surgical debridement of her wounds. States she had chronic wounds to her right knee, left ankle and right ankle for the past 2years. Has been seeing wound care. She denies any pain, fever, chills, numbness or tingling. Deniesany drainage from her wounds. Dr. Patiño would like her admitted to the hospital. On doxycycline. Past Medical History: Diagnosis Date Cancer (HCC) Pituitary abnormality (HCC) Past Surgical History: Procedure Laterality Date JOINT REPLACEMENT History reviewed. No pertinent family history. Social History Socioeconomic History Marital status: Single Spouse name: Not on file Number of children: Not on file Years of education: Not on file Highest education level: Not on file Occupational History Not on file Tobacco Use Smoking status: Current Every Day Smoker Packs/day: 0.10 Smokeless tobacco: Never Used Substance and Sexual Activity Alcohol use: Never Drug use: Never Sexual activity: Not on file Other Topics Concern Not on file Social History Narrative Not on file Social Determinants of Health Financial Resource Strain: Difficulty of Paying Living Expenses: Food Insecurity: Worried About Running Out of Food in the Last Year: Ran Out of Food in the Last Year: Transportation Needs: Lack of Transportation (Medical): Lack of Transportation (Non-Medical): Physical Activity: Days of Exercise per Week: Minutes of Exercise per Session: Stress: Feeling of Stress : Social Connections: Frequency of Communication with Friends and Family: Frequency of Social Gatherings with Friends and Family: Attends Scientology Services: Active Member of Clubs or Organizations: Attends Club or Organization Meetings: Marital Status: Previous Medications Medication Sig albuterol 90 mcg/actuation inhaler Inhale 2 puffs every 6 (six) hours as needed for wheezing . buPROPion (WELLBUTRIN SR, ZYBAN) 150 MG 12 hr tablet Take 150 mg by mouth 2 (two) times a day . doxycycline hyclate (VIBRAMYCIN) 100 MG capsule Take 100 mg by mouth daily . folic acid (FOLVITE) 1 MG tablet Take 1 mg by mouth daily . furosemide (LASIX) 20 MG tablet Take 20 mg by mouth daily . glycopyrrolate-formoteroL (Bevespi Aerosphere) 9-4.8 mcg HFAA Inhale 2 puffs 2 (two) times a day . leflunomide (ARAVA) 20 MG tablet Take 10 mg by mouth daily . methotrexate (TREXALL) 2.5 MG tablet Take 10 mg by mouth once a week On friday . No Known Allergies Review of Systems Constitutional: Negative for chills and fever. HENT: Negative for congestion. Eyes: Negative for photophobia. Respiratory: Negative for shortness of breath. Cardiovascular: Positive for leg swelling. Negative for chest pain. Gastrointestinal: Negative for abdominal pain. Genitourinary: Negative for dysuria. Musculoskeletal: Negative for back pain. Skin: Positive for color change and wound. Neurological: Negative for headaches. Hematological: Does not bruise/bleed easily. Psychiatric/Behavioral: Negative for confusion. All other systems reviewed and are negative. Patient Vitals for the past 24 hrs: BP Temp Temp src Pulse Resp SpO2 Height Weight 11/09/20 1614 141/79 98.3 F (36.8 C) Oral 99 18 93 % 11/09/20 1603 4' 11 61.2 kg (135 lb) Physical Exam Vitals and nursing note reviewed. Constitutional: Appearance: Normal appearance. HENT: Head: Normocephalic and atraumatic. Right Ear: External ear normal. Left Ear: External ear normal. Nose: Nose normal. Eyes: Extraocular Movements: Extraocular movements intact. Pupils: Pupils are equal, round, and reactive to light. Cardiovascular: Rate and Rhythm: Normal rate and regular rhythm. Pulses: Normal pulses. Radial pulses are 2+ on the right side and 2+ on the left side. Dorsalis pedis pulses are 2+ on the right side and 2+ on the left side. Posterior tibial pulses are 2+ on the right side and 2+ on the left side. Heart sounds: Normal heart sounds. Pulmonary: Effort: Pulmonary effort is normal. Breath sounds: Wheezing present. Abdominal: General: Bowel sounds are normal. There is no distension. Palpations: Abdomen is soft. Tenderness: There is no abdominal tenderness. Musculoskeletal: Cervical back: Normal range of motion and neck supple. Left lower le+ Edema present. Skin: General: Skin is warm and dry. Findings: Erythema present. Neurological: General: No focal deficit present. Mental Status: She is alert and oriented to person, place, and time. Psychiatric: Mood and Affect: Mood normal. Behavior: Behavior normal. Laboratory & Radiographic Imaging (if done): Results for orders placed or performed during the hospital encounter of 11/09/20 BMP Result Value Ref Range Sodium 139 135 - 145 mmol/L Potassium 3.6 3.5 - 5.1 mmol/L Chloride 100 98 - 108 mmol/L Bicarbonate 24 21 - 32 mmol/L Anion Gap 19 10 - 20 mmol/L Glucose 99 65 - 99 mg/dL BUN 30 (H) 8 - 25 mg/dL Creatinine 1.34 (H) 0.60 - 1.20 mg/dL eGFR 39 (L) >=60 mL/min/1.73 m2 BUN/Creatinine Ratio 22.4 (H) 10.0 - 20.0 Calcium 9.1 8.4 - 10.2 mg/dL Sedimentation Rate Result Value Ref Range Sed Rate 66 (H) 0 - 30 mm/hr CRP, Inflammation Result Value Ref Range CRP(Inflammation) 71.5 (H) 0.0 - 10.0 mg/L CBC Auto Differential Result Value Ref Range WBC 12.84 (H) 4.50 - 11.00 K/mcL RBC 3.84 (L) 4.00 - 5.20 M/mcL Hemoglobin 11.4 (L) 12.0 - 16.0 g/dL Hematocrit 33.6 (L) 36.0 - 46.0 % MCV 87.5 80.0 - 100.0 fL MCH 29.7 26.0 - 34.0 pg MCHC 33.9 31.0 - 37.0 g/dL Platelets 308 150 - 400 K/mcL RDW - CV 15.5 (H) 11.6 - 14.8 % MPV 9.9 9.4 - 12.4 fL Neutrophils 80.8 % Lymphocytes 6.8 % Monocytes 11.1 % Eosinophils 0.5 % Basophils 0.3 % IG Percent 0.50 % Neutrophils Abs 10.37 (H) 1.70 - 7.00 K/mcL Lymphocytes Abs 0.87 (L) 0.90 - 4.00 K/mcL Monocytes Abs 1.43 (H) 0.30 - 0.90 K/mcL Eosinophils Abs 0.06 0.00 - 0.50 K/mcL Basophils Abs 0.04 0.00 - 0.30 K/mcL IG Absolute 0.07 0.00 - 0.30 K/mcL Nucleated RBC 0.0 % Nucleated RBC Abs 0.00 0.00 - 0.00 K/mcL US Duplex Venous Leg LEFT XR Knee Right 2 Views (Standard) Final Result 1. Changes of prior right knee arthroplasty no evidence of hardware failure or loosening. 2. Inferior position of the patella raising the possibility of quadriceps tendon injury. 3. No acute fracture. 4. Anterior soft tissue swelling and irregularity. Workstation ID: [id number] NM White Blood Cell Prep (Results Pending) NM Bone Marrow Limited (Results Pending) US Doppler ankle/brachial index (Results Pending) Ultrasound duplex arterial legs bilat (Results Pending) CT Angiogram Lower Extremity Right (Results Pending) Procedures MDM Number of Diagnoses or Management Options Leg swelling Open wound of right lower extremity, initial encounter Diagnosis management comments: 75-year-old female patient presents for wound debridement. Sent hereby Dr. Patiño for admission. On exam she is well-appearing. She is neurovascular intact. Does have +2 pitting edema with erythema to her left lower extremity. Does have 2 open wounds to her right leg over her right knee into the right lateral ankle. No drainage. Creatinine is 1.34. Sed rate 66. CRP 71.5. With blood cell count is elevated at 12.84. Ultrasound duplex of the left leg shows no evidence of DVT. X-ray of the right knee shows changes of prior right arthroplasty, no evidence of hardwarefailure. Inferior position of the patella raising the possibility of quadricep tendon injury. No acute fracture. Anterior soft tissue swelling and irregularity. I did consult the plastic surgery resident. They were down to evaluate the patient and further imaging was ordered per them. Will be admitted to [facility]. The patient has been informed that they may have pre-hypertension or hypertension based on a blood pressure reading in the Emergency Department. I recommend that the patient call the primary care provider listed on their discharge instructions or a physician of their choice as soon as possible to arrange follow-up in the next 4 weeks for further evaluation of possible pre-hypertension or hypertension. . Clinical Impression: 1. Open wound of right lower extremity, initial encounter 2. Leg swelling 3. Renal insufficiency 4. Left leg cellulitis ED Disposition ED Disposition Condition Comment Hospitalize Recommended Level of Care: Med Surg Phone call required?: No Follow-up Information Follow-up information has not been specified. Contact information for after-discharge care Follow-up information has not been specified. Fernanda Nichols CNP 11/09/201919 * Dorothea Forte RN - 11/09/2020 4:16 PM EDT Patient arrives complaining of a wound on her R knee. Patient was seen here by Doctor Joey and sent here for a surgical debridement. +2 pedal pulse in both feet. * Margie Mays RN - 11/09/2020 4:08 PM EDT Patient has identified the following person as a contact to update throughout their stay: Name: ALISSON GONZALEZ Relationship: BROTHER documented in this [id number] History of Present illness Narrative* Dl Patiño MD - 11/09/2020 3:38 PM EDT Images from the original note were not included. OFFICE CONSULT Patient Name: Jessica Gonzalez MR #: [id number] : 1945 Referring Physician: Stuart Zamora DO Physicians: Stuart Zamora DO (Family); Assessment and Plan: As this wound is overlying a total knee prosthesis, I think there is some urgency to sort this out and reconstruct it if possible. I think she should be admitted to the medical service. She requires a bone scan and white blood cell scan to exclude loosening or osteomyelitis of the prosthesis, noninvasive Doppler studies and a CTA to evaluate the patency of her sural artery. We will admit her to the hospital today and follow her along during her stay. I took cultures of her wound at the bedside. Chief Complaint/Reason for Visit: *open wound right knee History of Present Illness: Jessica Gonzalez is a 75-year-old lady from [place], [place], who has a previous history of a total knee prosthesis on the right side. She apparently had developed an ulceration over her patella, that was managed in [place] with what appears to be a lateral gastroc muscle flap and skin graft. Despite their best efforts, the flap ulcer persists in the pretibial region slightly past midline. I have been asked to see her in this regard. She gives no history of peripheral vascular disease. She does have COPD, is on inhalers. History: No past medical history on file. No past surgical history on file. No family history on file. Social History Socioeconomic History Marital status: Unknown Spouse name: Not on file Number of children: Not on file Years of education: Not on file Highest education level: Not on file Occupational History Not on file Tobacco Use Smoking status: Not on file Substance and Sexual Activity Alcohol use: Not on file Drug use: Not on file Sexual activity: Not on file Other Topics Concern Not on file Social History Narrative Not on file Social Determinants of Health Financial Resource Strain: Difficulty of Paying Living Expenses: Food Insecurity: Worried About Running Out of Food in the Last Year: Ran Out of Food in the Last Year: Transportation Needs: Lack of Transportation (Medical): Lack of Transportation (Non-Medical): Physical Activity: Days of Exercise per Week: Minutes of Exercise per Session: Stress: Feeling of Stress : Social Connections: Frequency of Communication with Friends and Family: Frequency of Social Gatherings with Friends and Family: Attends Scient[employer] Services: Active Member of Clubs or Organizations: Attends Club or Organization Meetings: Marital Status: Allergy Information: I have reviewed the patient's allergies. Patient has no allergy information on record. Home Medications: There are no discharge medications for this patient. Review of Systems: Review of Systems Constitutional: Negative for activity change, appetite change, chills, diaphoresis, fatigue, fever and unexpected weight change. HENT: Negative for congestion, dental problem, drooling, ear discharge, ear pain, facial swelling, hearing loss, mouth sores, nosebleeds, postnasal drip, rhinorrhea, sinus pressure, sneezing, sore throat, tinnitus, trouble swallowing and voice change. Eyes: Negative for photophobia, pain, discharge, redness, itching and visual disturbance. Respiratory: Positive for wheezing. Negative for apnea, cough, choking, chest tightness, shortness of breath and stridor. Copd Cardiovascular: Negative for chest pain, palpitations and leg swelling. Gastrointestinal: Negative for abdominal distention, abdominal pain, anal bleeding, blood in stool,constipation, diarrhea, nausea and rectal pain. Endocrine: Negative for cold intolerance, heat intolerance, polydipsia, polyphagia and polyuria. Genitourinary: Negative for decreased urine volume, difficulty urinating, dysuria, enuresis, flank pain, frequency, genital sores, hematuria and urgency. Musculoskeletal: Negative for arthralgias, back pain, gait problem, joint swelling, myalgias, neck pain and neck stiffness. Skin: Negative for color change, pallor and rash. Allergic/Immunologic: Negative for environmental allergies, food allergies and immunocompromised state. Neurological: Negative for dizziness, tremors, seizures, syncope, facial asymmetry, speech difficulty, weakness, light-headedness, numbness and headaches. Hematological: Negative for adenopathy. Does not bruise/bleed easily. Psychiatric/Behavioral: Negative for agitation, behavioral problems, confusion, decreased concentration, dysphoric mood, hallucinations and self-injury. The patient is not nervous/anxious and is not hyperactive. Physical Examination: Vital Signs: BP 117/65 (BP Location: Left arm, Patient Position: Sitting, BP Cuff Size: Adult) Pulse 97 Temp98.2 F (36.8 C) (Oral) Ht 4' 11 Wt 61.2 kg (135 lb) BMI 27.27 kg/m Physical Exam Constitutional: Appearance: She is well-developed. HENT: Head: Normocephalic. Right Ear: External ear normal. Left Ear: External ear normal. Nose: Nose normal. Eyes: General: No scleral icterus. Left eye: No discharge. Pupils: Pupils are equal, round, and reactive to light. Neck: Thyroid: No thyromegaly. Vascular: No JVD. Trachea: No tracheal deviation. Cardiovascular: Rate and Rhythm: Normal rate and regular rhythm. Heart sounds: Normal heart sounds. No murmur heard. No friction rub. No gallop. Pulmonary: Effort: No respiratory distress. Breath sounds: No wheezing or rales. Chest: Chest wall: No tenderness. Abdominal: General: There is no distension. Palpations: There is no mass. Tenderness: There is no abdominal tenderness. There is no guarding or rebound. Musculoskeletal: General: No tenderness or deformity. Cervical back: Normal range of motion and neck supple. Lymphadenopathy: Cervical: No cervical adenopathy. Skin: Coloration: Skin is not pale. Findings: No erythema or rash. Neurological: Cranial Nerves: No cranial nerve deficit. Motor: No abnormal muscle tone. Coordination: Coordination normal. Deep Tendon Reflexes: Reflexes normal. Psychiatric: Behavior: Behavior normal. Thought Content: Thought content normal. Judgment: Judgment normal. [facility] Diagnosis Open wound of right knee, initial encounter [facility] Diagnosis Surgical wound infection- Primary Other postoperative infection Open wound of right lower extremity, initial encounter Leg swelling Swelling of limb Renal insufficiency Unspecified disorder of kidney and ureter Left leg cellulitis PAD (peripheral artery disease) (HCC) Unspecified peripheral vascular disease Elevated serum creatinine Other nonspecific findings on examination of blood Rheumatoid arthritis, involving unspecified site, unspecified whether rheumatoid factor present (HCC) Chronic obstructive pulmonary disease, unspecified COPD type (HCC) Acute respiratory failure, unspecified whether with hypoxia or hypercapnia (HCC) Depression, unspecified depression type Acute blood loss anemia Acute posthemorrhagic anemia History of DVT (deep vein thrombosis) [facility] Surgical wound infection- Primary Other postoperative infection [facility] Diagnosis Surgical wound infection- Primary Other postoperative infection [facility] Diagnosis Surgical wound infection- Primary Other postoperative infection [facility] Diagnosis Surgical wound infection- Primary Other postoperative infection [facility] Diagnosis Surgical wound infection- Primary Other postoperative infection [facility] Diagnosis Open wound of right knee, initial encounter- Primary [facility] Diagnosis Open wound of right knee, initial encounter- Primary [facility] Diagnosis Surgical wound infection- Primary Other postoperative infection Open wound of right knee, initial encounter [facility] Diagnosis Open wound of right knee, initial encounter- Primary [facility] InformationN[employer] Other Evaluation noteNo assessment information available [facility] Work Phone: Hissrdl general Narrative - Reported* Type Description Date Medical History hypothyroid Medical History hx of colon cancer Surgical History knee replacement-right Surgical History ear surgery-right Surgical History rotator cuff-left Surgical History back surgery Surgical History hip replacement Surgical History IVC filter placement 05/2020 Surgical History IVC filter removed Surgical History skin flap from right calf for r ight knee Hospitalization History see surgical hx [employer] Other Hisbonv general Narrative - Reported* Type Description Date Medical History hypothyroid Medical History hx of colon cancer Medical History Colonic mass Medical History Adenocarcinoma of transverse col on Medical History Atherosclerotic PVD with intermi ttent claudication Medical History 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, subsequent encounter Medical History Nondisplaced oblique fracture of shaft of left femur, initial encounter for closed fracture Medical History Bilateral primary osteoarthritis of knee Medical History History of arthroplasty of left hip Medical History Age-related osteopor osis without current pathological fracture Medical History Thrush Medical History Seronegative rheumatoid arthriti s Medical History Lumbar spondylosis Medical History Centrilobular emphysema Medical History CALCIFIED LYMPH NODES Surgical History knee replacement-right Surgical History ear surgery-right Surgical History rotator cuff-left Surgical History back surgery Surgical History hip replacement Surgical History IVC filter placement 05/2020 Surgical History IVC filter removed Surgical History skin flap from right calf for r ight knee Surgical History REMOVAL OF HIP PROSTHESIS 2021 Surgical History HIP ARTHR0 W/DEBRIDEMENT 2021 Surgical History TOTAL HIP ARTHROPLASTY 2021 Surgical History INS ENDOVAS VENA CAVA FILTR 202 Hospitalization History see surgical hx [employer] Other Summary Purpose Family History Relationship Condition Age at Onset Recorded Date/T rachelle father Diabetes mellitus Unknown sister Malignant neoplasm Unknown Advance Directives Documents on File Type Date Recorded 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 Advance Directives and Livin g Will 11/09/2020 4:35 PM Latest Code Status on File Code Status Date Activated Date Inactivated Comments Full Code 11/09/2020 10:19 PM Documents on File Type Date Recorded 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 DATE CREATED AUTHOR AUTHOR'S ORGANIZ ATION 11/19/2017 [facility] DATE CREATED AUTHOR AUTHOR'S ORGANIZ ATION 12/08/2020 [facility] DATE CREATED AUTHOR AUTHOR'S ORGANIZ ATION 07/07/2021 [facility] DATE CREATED AUTHOR AUTHOR'S ORGANIZ ATION 02/24/2022 [facility] DATE CREATED AUTHOR AUTHOR'S ORGANIZ ATION 11/05/2022 [facility] DATE CREATED AUTHOR AUTHOR'S ORGANIZ ATION 03/05/2023 [facility] DATE CREATED AUTHOR AUTHOR'S ORGANIZ ATION 05/16/2023 [facility] Reason for Visit (unrecogniz ed section and content) Lab Work Status Reason Specialty Diagnoses / Procedures Referred By Contact Referred To Contact Closed Specialty Services Required/Patien t's Best Interest Plastic Surgery Diagnoses Open wound of right knee, initial encounter Stuart Zamora DO [address] [address] [address] [place] [address] Dl Patiño MD [address] [address] Reason Comments Wound Check referral dr patiño Status Reason Specialty Diagnoses / Procedures Referre d By Contact Referred To Contact Diagnoses Surgical wound infection Leg swelling Renal insufficiency Left leg cellulitis Open wound of right lower extremity, initial encounter open wound of right knee Reason Comments Follow-up Scheduled Active and Recently Administ ered Medications (unrecognized section and content) Medication Order 11/27/2020 11/28/2020 11/29/2020 ascorbic acid (vitamin C) (VITAMIN C) tablet 500 mg 500 mg, Oral, Daily, First dose on Fri11/10/20 at 0900 0828 (Given - Provider: Cara Canas, ANNIE) 0811 (Given - Provider: Narda Lopez RN) 0829 (Given - Provider: Narda Lopez, ANNIE) atorvastatin (LIPITOR) tablet 20 mg 20 mg, Oral, Nightly, First dose on Fri11/10/20 at 2100 2026 (Given - Provider: Victor Manuel Lafleur, ANNIE) 2114 (Given - Provider: Twila Cat, ANNIE) bacitracin zinc-polymyxin B ointment 1 application 1 application, Topical, 2 times daily, First dose (after last modification) on Fri11/24/20 at 1345, Apply to wound on site 0459 (Given - Provider: Isa Ames RN)1638 (Given - Provider: Cara Canas RN) 0440 (Given - Provider: Victor Manuel Lafleur, ANNIE)1558 (Given - Provider: Narda Lopez, ANNIE)1700 (Not Given - Provider: Narda Lopez RN - Reason: Other - Comment: Given during dressing change done at 1558) 0500 (Given - Provider: Twila aCt, RN) budesonide-formoteroL (SYMBICORT) 160-4.5 mcg/actuation inhaler 2 puff 2 puff, Inhalation, 2 times daily (RT), First dose on Fri11/10/20 at 2000, SPACER REQUIRED FOR ADMINISTRATION 0828 (Given - Provider: Cara Canas, ANNIE)2026 (Given - Provider: Victor Manuel Lafleur, ANNIE) 0900 (Due - Provider: Betina Land, RN)1999 (Due - Provider: Betina Land, RN) 0824 (Given - Provider: Narda Lopez, ANNIE) buPROPion (WELLBUTRIN SR) 12 hr tablet 150 mg 150 mg, Oral, 2 times daily, First dose on Fri11/10/20 at 0030, DO NOT CRUSH OR CHEW. 0832 (Given - Provider: Cara Canas RN)2026 (Given - Provider: Victor Manuel Lafleur, ANNIE) 08 (Given - Provider: Narda Lopez, ANNIE)211 (Given - Provider: Twila Cat, RN) 0829 (Given - Provider: Narda Lopez, ANNIE) cefePIMe-dextrose (MAXIPIME) 2 gram/50 mL IVPB 2,000 mg 2,000 mg, Intravenous, at 100 mL/hr, Every 12 hours, First dose on Fri11/12/20 at 1500, Indication: Other (specify), Indication: non-healing surgical wound with pseudomonas growing from culture 0501 (New Bag - Provider: Isa Ames, ANNIE)0547 (Stopped - Provider: Isa Ames, RN)1635 (New Bag - Provider: Cara Canas RN) 0439 (New Bag - Provider: Victor Manuel Lafleur RN)1620 (New Bag - Provider: Narda Lopez, ANNIE - Comment: EPIC would not take my fingerprint or OPID to sign off the administration) 0537 (New Bag - Provider: Twila Cat, RN) cholecalciferol (vitamin D3) tablet 1,000 Units 1,000 Units, Oral, Daily, First dose on Fri11/10/20 at 0900 0828 (Given - Provider: Cara Canas RN) 08 (Given - Provider: Narda Lopez, ANNIE) 08 (Given - Provider: Narda Lopez, RN) clopidogreL (PLAVIX) tablet 75 mg 75 mg, Oral, Daily, First dose on Fri11/20/20 at 0900 0828 (Given - Provider: Cara Canas RN) 08 (Given - Provider: Narda Lopez RN) 08 (Given - Provider: Narda Lopez, RN) cyanocobalamin (B-12) tablet 100 mcg 100 mcg, Oral, Daily, First dose on Fri11/10/20 at 0900 0828 (Given - Provider: Cara Canas RN) 08 (Given - Provider: Narda Lopez RN) 828 (Given - Provider: Narda Lopez, ANNIE) famotidine (PEPCID) tablet 20 mg 20 mg, Oral, Nightly, First dose on Fri11/21/20 at 1000 2026 (Given - Provider: Victor Manuel Lafleur RN) 2114 (Given - Provider: Twila Cat, ANNIE) folic acid (FOLVITE) tablet 1 mg 1 mg, Oral, Daily, First dose on Fri11/10/20 at 0900 0828 (Given - Provider: Cara Canas RN) 08 (Given - Provider: Narda Lopez, ANNIE) 828 (Given - Provider: Narda Lopez, ANNIE) guaiFENesin (MUCINEX) 12 hr tablet 600 mg 600 mg, Oral, Every 12 hours scheduled, First dose on Fri11/14/20 at 1030, DO NOT CRUSH OR CHEW. 0828 (Given - Provider: Cara Canas RN)2025 (Given - Provider: Victor Manuel Lafleur RN) 810 (Given - Provider: Narda Lopez, ANNIE)2114 (Given - Provider: Twila Cat, RN) 828 (Given - Provider: Narda Lopez, RN) ipratropium-albuteroL (DUO-NEB) 0.5-2.5 mg/3 ml nebulizer solution 3 mL 3 mL, Inhalation, 4 times daily (RT), First dose (after last modification) on Fri11/12/20 at 1200 0800 (Not Given - Provider: Michael Contreras, VISHNU - Reason: Patient not available)1130 (Given - Provider: Michael Contreras, BORING MACHINE SET UP OPERATOR JIG)1619 (Given - Provider: Dara Urias, BORING MACHINE SET UP OPERATOR JIG)1929 (Given - Provider: Shawn Short, VISHNU) 0807 (Not Given - Provider: Santiago Culver RRT - Reason: Patient/family refused)1137 (Given - Provider: Santiago Culver BORING MACHINE SET UP OPERATOR JIG)1501 (Given - Provider: Santiago Culver, BORING MACHINE SET UP OPERATOR JIG)2042 (Given - Provider: Patel Ponce, VISHNU) 0847 (Given - Provider: Jeremy Myers, VISHNU)1200 (Not Given - Provider: Jeremy Myers RRT - Reason: Patient not available) leflunomide (ARAVA) tablet 20 mg 20 mg, Oral, Every other day, First dose (after last modification) on Fri11/29/20 at 1200, CATEGORY C HAZARDOUS DRUG use safe handling precautions. Use reference link to view PPE guidelines. Minimize crushing/splitting only to situations where clinically necessary. 1358 (Given - Provider: Narda Lopez RN) methotrexate (TREXALL) tablet 10 mg 10 mg, Oral, Weekly, First dose (after last modification) on Fri12/01/20 at 0900, CATEGORY C HAZARDOUS DRUG use safe handling precautions. Use reference link to view PPE guidelines. Chemotherapy Agent (Refer to Policy Rx- 910.023). DO NOT CRUSH OR CHEW., Indication: Rheumatoid Arthritis, Ordering restricted to Attending provider: I am an Attending provider rivaroxaban (XARELTO) tablet 20 mg 20 mg, Oral, Daily, First dose on Fri11/26/20 at 1800, Must be given with food. Notify physician if patient refuses. If feeding tube administration, give only via tubes placed in the stomach., Indication: DVT/PE, How long has patient been on rivaroxiban? 21 Days - 6 Months 1748 (Given - Provider: Cara Canas RN) 1720 (Given - Provider: Narda Lopez RN) senna-docusate (SENNA-S) 8.6-50 mg per tablet 1 tablet 1 tablet, Oral, 2 times daily, First dose on Fri11/13/20 at 2115, NOT for abdominal surgery patients. Hold for loose stools. Do Not Crush or Chew if administering orally due to bitter taste. May be crushed if given via tube. 0828 (Given - Provider: Cara Canas RN)2100 (Not Given - Provider: Victor Manuel Lafleur RN - Reason: Patient/family refused - Comment: had loose stool in AM) 0811 (Given - Provider: Narda Lopez RN)2113 (Given - Provider: Twila Cat, ANNIE) 0828 (Given - Provider: Narda Lopez, RN) sodium chloride (PF) (NS) flush 5 mL(Linked Group 1) 5 mL, Intravenous, Every 8 hours scheduled, First dose on Fri11/10/20 at 0030, Saline lock 0549 (Given - Provider: Isa Ames RN)1400 (Canceled Entry - Provider: Cara Canas RN)2326 (Given - Provider: Victor Manuel Lafleur RN) 0600 (Canceled Entry - Provider: Victor Manuel Lafleur RN)1400 (Not Given - Provider: Narda Lopez RN - Reason: Other - Comment: previously given)2115 (Given - Provider: Twila Cat RN) 0535 (Given - Provider: Twila Cat RN)1400 (Due) sodium chloride (PF) (NS) flush 5 mL(Linked Group 2) 5 mL, Intravenous, Every 8 hours scheduled, First dose on Fri11/13/20 at 2200, Saline lock 0500 (Given - Provider: Isa Ames RN)1637 (Given - Provider: Cara Canas RN)2200 (Canceled Entry - Provider: Victor Manuel Lafleur RN) 0501 (Given - Provider: Victor Manuel Lafleur RN)1306 (Given - Provider: Narda Lopez RN)211 (Given - Provider: Twila Cat RN) 0535 (Given - Provider: Twila Cat RN)1400 (Due) PRN Medication Order 11/27/2020 11/28/2020 11/29/2020 acetaminophen (TYLENOL) tablet 650 mg 650 mg, Oral, Every 4 hours PRN, fever 100.4 F or greater, headaches, Starting on Fri11/13/20 at 2020 bisacodyL (DULCOLAX) suppository 10 mg 10 mg, Rectal, Daily PRN, constipation, Starting on Sara 11/09/20 at 2344, Try oral medications first for constipation. Try rectal medication if oral meds are ineffective, not tolerated, or not ordered. calcium carbonate (TUMS) chewable tablet 500 mg 500 mg, Oral, Daily PRN, indigestion, heartburn, Starting on Fri11/21/20 at 0836, Give with Food 1517 (Given - Provider: Narda Lopez RN) hydrALAZINE (APRESOLINE) injection 10 mg(Linked Group 3) 10 mg, Intravenous, Every 6 hours PRN, SBP greater than range on Hemodynamic Goal-SBP order AND antihypertensive infusion at max dose (or not ordered)., Starting on Fri11/13/20 at 2020, Use metoprolol (LOPRESSOR) first if HR greater than 60. DO NOT USE hydralazine if HR greater than 100. HYDROcodone-acetaminophen (NORCO) 5-325 mg per tablet 1 tablet 1 tablet, Oral, Every 4 hours PRN, moderate to severe pain, Starting on Fri11/27/20 at 1352, [] Initiate with 1 tablet oral every 4 hours prn moderate to severe pain. [] For unrelieved pain, may repeat one tablet oral dose within 60 minutes of initial dose. [] If pain is RELIEVED after repeat dose, change to two tablets of 5/325 mg oral every 4 hours prn moderate to severe pain. [] If pain is UNrelieved after repeat dose, or patient requires dose reduction, call physician. 1741 (Given - Provider: Cara Canas RN) 0024 (Given - Provider: Victor Manuel Lafleur RN)0439 (Given - Provider: Victor Manuel Lafleur RN)0910 (Given - Provider: Narda Lopez, ANNIE)1304 (Given - Provider: Narda Lopez RN)2115 (Given - Provider: Twila Cat RN) 0325 (Given - Provider: Twila Cat ANNIE)0936 (Given - Provider: Narda Lopez, ANNIE) HYDROcodone-acetaminophen (NORCO) 5-325 mg per tablet 1-2 tablet (CANCELED) 1-2 tablet, Oral, Every 4 hours PRN, moderate to severe pain, Starting on Fri11/13/20 at 2020, [] Initiate with 1 tablet oral every 4 hours prn moderate to severe pain. [] For unrelieved pain, may repeat one tablet oral dose within 60 minutes of initial dose. [] If pain is RELIEVED after repeat dose, change to two tablets of 5/325 mg oral every 4 hours prn moderate to severe pain. [] If pain is UNrelieved after repeat dose, or patient requires dose reduction, call physician. 0500 (Given - Provider: Isa Ames RN)0903 (Given - Provider: Cara Canas, ANNIE)1347 (Given - Provider: Cara Canas, ANNIE) ipratropium-albuteroL (DUO-NEB) 0.5-2.5 mg/3 ml nebulizer solution 3 mL 3 mL, Inhalation, Every 2 hour PRN (RT), wheezing, shortness of breath, Starting on Fri11/14/20 at 0937 melatonin Tab 5 mg 5 mg, Oral, Nightly PRN, Sleep, Starting on Sara 11/09/20 at 2344, If still awake in 1 hour proceed to trazodone (Desyrel) metoprolol (LOPRESSOR) injection 5 mg(Linked Group 3) 5 mg, Intravenous, Every 6 hours PRN, SBP greater than range on Hemodynamic Goal-SBP order AND antihypertensive infusion at max dose (or not ordered) AND HR greater than 60., Starting on Fri11/13/20 at 2020, DO NOT USE if HR = 60 or less. (Use hydralazine in that case, if ordered. Otherwise call physician for alternative antihypertensive therapy.) naloxone (NARCAN) injection 0.1 mg(Linked Group 4) 0.1 mg, Intravenous, As needed, opioid reversal, For respiratory rate less than or equal to 8 per minute., Starting on Fri11/13/20 at 2019, Mix nalOXone (NARCAN) 0.4 mg (1ml) with 9 mL of Normal Saline to total 10 mL. Administer 0.1 mg (2.5ml) IV Push every 2 minutes until respiratory rate is 10 or greater. naloxone (NARCAN) injection 0.1 mg(Linked Group 5) 0.1 mg, Intravenous, As needed, opioid reversal, Starting on Fri11/22/20 at 1140, PACU (only), [] Mix nalOXone (NARCAN) 0.4 mg (1ml) with 9 mL of Normal Saline to total 10 mL. [] Administer 0.1 mg (2.5ml) IV Push every 2 minutes until respiratory rate is 10 or greater. naloxone (NARCAN) injection 0.4 mg(Linked Group 4) 0.4 mg, Intravenous, As needed, opioid reversal, patient is pulseless, breathless, and unresponsive, Starting on Fri11/13/20 at 2020, Call a code first, then administer naloxone dose undiluted IV Push over 30 seconds. naloxone (NARCAN) injection 0.4 mg(Linked Group 5) 0.4 mg, Intravenous, As needed, opioid reversal, patient is pulseless, breathless, and unresponsive, Starting on Fri11/22/20 at 1140, PACU (only), Call a code first, then administer naloxone dose undiluted IV Push over 30 seconds. ondansetron (ZOFRAN) injection 4 mg(Linked Group 6) 4 mg, Intravenous, Every 6 hours PRN, nausea, vomiting, Starting on Fri11/09/20 at 2344, Use oral route first, if tolerated. 1510 (Given - Provider: Narda Lopez RN) ondansetron (ZOFRAN-ODT) disintegrating tablet 4 mg(Linked Group 6) 4 mg, Oral, Every 6 hours PRN, nausea, vomiting, Starting on Sara 11/09/20 at 2344, Use oral route first, if tolerated. Formulation requires tablet remain in sealed package until immediately prior to dose being administered. 1510 (See Alternative - Provider: Narda Lopez RN) senna (SENOKOT) tablet 8.6 mg 8.6 mg (1 tablet), Oral, 2 times daily PRN, constipation, Starting on Fri11/09/20 at 2344 sodium chloride (PF) (NS) flush 5 mL(Linked Group 1) 5 mL, Intravenous, As needed, line care, Starting on Fri11/09/20 at 2344 sodium chloride (PF) (NS) flush 5 mL(Linked Group 2) 5 mL, Intravenous, As needed, line care, Starting on Fri11/13/20 at 2020 sodium chloride 0.9% (NS)(Linked Group 1) 0-150 mL/hr, Intravenous, As needed, To flush line after IV infusions when no maintenance IV ordered or a compatibility issue. Infuse 20ml at the same rate as the secondary infusion, Starting on Fri11/09/20 at 2344, Run as Primary IV. NOT intended for KVO. sodium chloride 0.9% (NS)(Linked Group 2) 0-150 mL/hr, Intravenous, As needed, To flush line after IV infusions when no maintenance IV ordered or a compatibility issue. Infuse 20ml at the same rate as the secondary infusion, Starting on Fri11/13/20 at 2019, Run as Primary IV. NOT intended for KVO. traZODone (DESYREL) tablet 50 mg 50 mg, Oral, Nightly PRN, sleep, Starting on Fri11/09/20 at 2344, To be administered 1 hour after melatonin if still awake. May repeat x 1 dose in 30 minutes if still awake. Linked Groups Order Group 1: Saline lock IV (CANCELED) Routine, Continuous, Starting on Fri11/09/20 at 2345, Until Specified And sodium chloride (PF) (NS) flush 5 mLJump to med 5 mL, Intravenous, As needed, line care, Starting on Fri11/09/20 at 2344 And sodium chloride (PF) (NS) flush 5 mLJump to med 5 mL, Intravenous, Every 8 hours scheduled, First dose on Fri11/10/20 at 0030
Saline lock
And sodium chloride 0.9% (NS)Jump to med 0-150 mL/hr, Intravenous, As needed, To flush line after IV infusions when no maintenance IV ordered or a compatibility issue. Infuse 20ml at the same rate as the secondary infusion, Starting on Fri11/09/20 at 2344
Run as Primary IV. NOT intended for KVO.
Group 2: Saline lock IV (CANCELED) Routine, Continuous, Starting on Fri11/13/20 at 202, Until Specified And sodium chloride (PF) (NS) flush 5 mLJump to med 5 mL, Intravenous, As needed, line care, Starting on Fri11/13/20 at 2020 And sodium chloride (PF) (NS) flush 5 mLJump to med 5 mL, Intravenous, Every 8 hours scheduled, First dose on Fri11/13/20 at 2200
Saline lock
And sodium chloride 0.9% (NS)Jump to med 0-150 mL/hr, Intravenous, As needed, To flush line after IV infusions when no maintenance IV ordered or a compatibility issue. Infuse 20ml at the same rate as the secondary infusion, Starting on Fri11/13/20 at 2019
Run as Primary IV. NOT intended for KVO.
Group 3: metoprolol (LOPRESSOR) injection 5 mgJump to med 5 mg, Intravenous, Every 6 hours PRN, SBP greater than range on Hemodynamic Goal-SBP order AND antihypertensive infusion at max dose (or not ordered) AND HR greater than 60., Starting on Fri11/13/20 at 2019
DO NOT USE if HR = 60 or less. (Use hydralazine in that case, if ordered. Otherwise call physician for alternative antihypertensive therapy.)
Or hydrALAZINE (APRESOLINE) injection 10 mgJump to med 10 mg, Intravenous, Every 6 hours PRN, SBP greater than range on Hemodynamic Goal-SBP order AND antihypertensive infusion at max dose (or not ordered)., Starting on Fri11/13/20 at 2019
Use metoprolol (LOPRESSOR) first if HR greater than 60. DO NOT USE hydralazine if HR greater than 100.
Group 4: naloxone (NARCAN) injection 0.1 mgJump to med 0.1 mg, Intravenous, As needed, opioid reversal, For respiratory rate less than or equal to 8 per minute., Starting on Fri11/13/20 at 2019
Mix nalOXone (NARCAN) 0.4 mg (1ml) with 9 mL of Normal Saline to total 10 mL. Administer 0.1 mg (2.5ml) IV Push every 2 minutes until respiratory rate is 10 or greater.
And Notify physician (CANCELED) STAT, Until discontinued, Starting on Fri11/13/20 at 2021, Until Specified
Respiratory rate less than: 8
For respiratory rate less than or equal to 8, notify physician and/or appropriate staff for additional orders. And naloxone (NARCAN) injection 0.4 mgJump to med 0.4 mg, Intravenous, As needed, opioid reversal, patient is pulseless, breathless, and unresponsive, Starting on Fri11/13/20 at 2020
Call a code first, then administer naloxone dose undiluted IV Push over 30 seconds.
Group 5: Notify Anesthesiologist (CANCELED) STAT, Until discontinued, Starting on Fri11/22/20 at 1141, Until Specified
Notify anesthesiologist immediately if respiratory rate less than or equal to 8 breaths per minute., PACU (only) And naloxone (NARCAN) injection 0.1 mgJump to med 0.1 mg, Intravenous, As needed, opioid reversal, Starting on Fri11/22/20 at 1140, PACU (only)
[] Mix nalOXone (NARCAN) 0.4 mg (1ml) with 9 mL of Normal Saline to total 10 mL. [] Administer 0.1 mg (2.5ml) IV Push every 2 minutes until respiratory rate is 10 or greater.
And naloxone (NARCAN) injection 0.4 mgJump to med 0.4 mg, Intravenous, As needed, opioid reversal, patient is pulseless, breathless, and unresponsive, Starting on Fri11/22/20 at 1140, PACU (only)
Call a code first, then administer naloxone dose undiluted IV Push over 30 seconds.
Group 6: ondansetron (ZOFRAN-ODT) disintegrating tablet 4 mgJump to med 4 mg, Oral, Every 6 hours PRN, nausea, vomiting, Starting on Sara 11/09/20 at 2344
Use oral route first, if tolerated. Formulation requires tablet remain in sealed package until immediately prior to dose being administered.
Or ondansetron (ZOFRAN) injection 4 mgJump to med 4 mg, Intravenous, Every 6 hours PRN, nausea, vomiting, Starting on Sara 11/09/20 at 2344
Use oral route first, if tolerated.
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 [place] [address] [place] [address] PCP - General Internal Medicine 10/26/20 Team Status: Active Member Role Status Dates Stuart Zamora DO Primary Care Provider Active Team Status: Inactive Member Role Status Dates Stuart Zamora DO Primary Care Provider Active Mekhi Boyer MD Attending Provider Active Goals (unrecognized section and content) Goals may be documented in a n alternate section FOR RECORDS PERTAINING TO PATIENTS WHO ARE OR HAVE BEEN ENROLLED IN A CHEMICAL DEPENDENCY/SUBSTANCEABUSE PROGRAM, SOME INFORMATION MAY BE OMITTED. This clinical summary was aggregated from multiple sources. Caution should be exercised in using it in the provision of clinical care. This summary normalizes information from multiple sources, and as a consequence, information in this document may materially change the coding, format and clinical context of patient data. In addition, data may be omitted in some cases. CLINICAL DECISIONS SHOULD BE BASED ON THE PRIMARY CLINICAL RECORDS. [email or web address]. provides no warranty or guarantee of the accuracy or completeness of information in this document.
--- NOTE | 2023-05-23 12:44 | US_ITS ---
The [address] [address] Patient Name: CIELO SAHA MRN: [id number] date: 1945 Sex: F Assigned Patient Location: ER Current Patient Location: ER Accession/Order Number: [id number] Exam Date: 05/23/2023 12:45 Report Date: 05/23/2023 13:51 At the request of: LUIS FISHER Procedure: US venous doppler UE RT EXAMINATION: US venous doppler UE RT HISTORY: swelling just above the elbow right COMPARISON: No relevant comparison available. FINDINGS: REGION: Right upper extremity THROMBI: None. COMPRESSIBILITY: Normal compressibility. FLOW: Normal waveform and antegrade flow between 5 and 20 cm/s. OTHER: Complex fluid collection extending cephalad from the antecubital fossa, 11.6 x 7.5 x 3.6 cm. Complex fluid collection within the medial forearm 8.6 x 1.9 x 2.0 cm US/US venous doppler UE RT IMPRESSION: 1. No deep vein thrombus within the right upper extremity. 2. Large complex fluid collection within the forearm and upper arm; nonspecific but suspected to represent intramuscular hematomas. No appreciable active extravasation. Electronically authenticated by: VIVIENNE RODRIGUEZ Date: 05/23/2023 13:51
--- NOTE | 2023-05-23 14:30 | ED.GENADUL1 ---
HPI - General Adult General Chief complaint: Extremity Injury, Upper Stated complaint: EDEMA Time Seen by Provider: 05/23/23 12:41 Source: patient Mode of arrival: ambulance Limitations: no limitations History of Present Illness HPI narrative: this patient presents emergency room from home. Visiting home nurse some swelling in her distal right triceps area and thought she should have a deep vein thrombosis ruled out she has she has no pain or discomfort. After repeated questioning it turns out the patient did have a PICC line in that area at least one month ago. She is no longer taking any blood thinners. Related Data Home Medications Medication Instructions Recorded Confirmed Lactobacillus acidoph-L.bulgaricus 1 tab PO TID 11/02/22 05/23/23 1 million cell chewable tablet acetaminophen 500 mg tablet 500 mg PO Q6H PRN pain 11/02/22 05/23/23 albuterol sulfate 90 mcg/actuation 2 inh inhalation Q6H PRN shortness 11/02/22 05/23/23 aerosol inhaler of breath or wheezing bisacodyl 10 mg rectal suppository 10 mg NV DAILY PRN constipation 11/02/22 05/23/23 bupropion HCl 150 mg tablet,12 hr 150 mg PO Q12H 11/02/22 05/23/23 sustained-release cholecalciferol (vitamin D3) 50 50 mcg PO DAILY 11/02/22 05/23/23 mcg (2,000 unit) capsule docusate sodium 100 mg capsule 100 mg PO BID 11/02/22 05/23/23 (Colace) famotidine 20 mg tablet 20 mg PO DAILY 11/02/22 05/23/23 fluticasone propionate 50 2 spray intranasal DAILY 11/02/22 05/23/23 mcg/actuation nasal spray,suspension folic acid 1 mg tablet 1 mg PO DAILY 11/02/22 05/23/23 furosemide 20 mg tablet 20 mg PO DAILY 11/02/22 05/23/23 levothyroxine 75 mcg tablet 75 mcg PO DAILY 11/02/22 05/23/23 multivitamin 1 tab PO DAILY 11/02/22 05/23/23 ondansetron HCl 4 mg tablet 4 mg PO Q6H PRN nausea and vomiting 11/02/22 05/23/23 oxycodone 5 mg tablet 5 mg PO BID PRN pain 11/02/22 05/23/23 polyethylene glycol 3350 17 17 g PO .every 48 hours 11/02/22 05/23/23 gram/dose oral powder (Miralax) polysaccharide iron complex 150 mg 150 mg PO .every other day 11/02/22 05/23/23 iron capsule (Ferrex) potassium chloride 20 mEq 20 meq PO DAILY 11/02/22 05/23/23 tablet,extended release(part/cryst) prednisone 5 mg tablet 5 mg PO .every 48 hours 11/02/22 05/23/23 sodium chloride 0.65 % nasal spray 1 spray intranasal DAILY PRN nasal 11/02/22 05/23/23 aerosol congestion sodium phosphates 19 gram-7 118 ml NV DAILY PRN constipation 11/02/22 05/23/23 gram/118 mL enema (Fleet Enema) umeclidinium 62.5 mcg-vilanterol 1 inh inhalation DAILY 11/02/22 05/23/23 25 mcg/actuation powdr for inhalation (Anoro Ellipta) sulfamethoxazole 800 1 tab PO DAILY 05/23/23 05/23/23 mg-trimethoprim 160 mg tablet Allergies Allergy/AdvReac Type Severity Reaction Status Date / Time No Known Drug Allergies Allergy Verified 05/23/23 12:26 [facility] Medical History (Updated 05/23/23 @ 14:33 by Ameya Jeffery MD) PVD (peripheral vascular disease) ?I73.9 - Peripheral vascular disease, unspecified (ICD-10) Major depression ?F32.9 - Major depressive disorder, single episode, unspecified (ICD-10) Hypertension ?I10 - Essential (primary) hypertension (ICD-10) GERD (gastroesophageal reflux disease) ?K21.9 - Gastro-esophageal reflux disease without esophagitis (ICD-10) Thyroid disease ?E07.9 - Disorder of thyroid, unspecified (ICD-10) COPD (chronic obstructive pulmonary disease) ?J44.9 - Chronic obstructive pulmonary disease, unspecified (ICD-10) Anxiety ?F41.9 - Anxiety disorder, unspecified (ICD-10) Anemia ?D64.9 - Anemia, unspecified (ICD-10) CHF (congestive heart failure) ?I50.9 - Heart failure, unspecified (ICD-10) Wound dehiscence ?T81.30XA - Disruption of wound, unspecified, initial encounter (ICD-10) Encounter for management of wound VAC ?Z46.89 - Encounter for fitting and adjustment of other specified devices (ICD-10) Corynebacterium minutissimum infection ?L08.89 - Other specified local infections of the skin and subcutaneous tissue (ICD-10) Serratia infection ?A49.8 - Other bacterial infections of unspecified site (ICD-10) MSSA (methicillin susceptible Staphylococcus aureus) infection ?A49.01 - Methicillin susceptible Staphylococcus aureus infection, unspecified site (ICD-10) Colon cancer ?C18.9 - Malignant neoplasm of colon, unspecified (ICD-10) Rheumatoid arthritis ?M06.9 - Rheumatoid arthritis, unspecified (ICD-10) Surgical History (Updated 11/02/22 @ 10:29 by Nieves Trotter) History of total hip arthroplasty ?Z96.649 - Presence of unspecified artificial hip joint (ICD-10) Social History Smoking status: Former smoker Exam Narrative Exam Narrative: very pleasant alert 77-year-old. She has good pulses to both upper extremities with no evidence of arterial insufficiency. She can flex and extend the right elbow with no problems. She is not felt to have a biceps tendon injury although she's had one of those in the past. Examining his nontender soft tissue fullness in the distal biceps area is freely movable is not hard is not tender is not felt to represent an abscess. Constitutional Vital Signs, click to edit/add: Last Vital Signs Temp 97.7 F 05/23/23 12:22 Pulse 82 05/23/23 12:22 Resp 18 05/23/23 12:22 BP 129/62 05/23/23 12:22 Pulse Ox 96 05/23/23 12:22 O2 Del Method Room Air 05/23/23 12:22 Course Vital Signs Vital signs: Vital Signs Temperature 97.7 F 05/23/23 12:22 Pulse Rate 82 05/23/23 12:22 Respiratory Rate 18 05/23/23 12:22 Blood Pressure 129/62 05/23/23 12:22 Pulse Oximetry 96 05/23/23 12:22 Oxygen Delivery Method Room Air 05/23/23 12:22 Temperature 97.7 F 05/23/23 12:22 Pulse Rate 82 05/23/23 12:22 Respiratory Rate 18 05/23/23 12:22 Blood Pressure 129/62 05/23/23 12:22 Pulse Oximetry 96 05/23/23 12:22 Oxygen Delivery Method Room Air 05/23/23 12:22 Medical Decision Making MDM Narrative Medical decision making narrative: ultrasound was done and that shows that there is no deep vein thrombosis. There is a fluid collection within the muscular area of the proximal forearm and distal upper arm. It is consistent with a hematoma. That is consistent physical exam as well Discharge Plan Discharge Chief Complaint: Extremity Injury, Upper Clinical Impression: Hematoma of right upper extremity Patient Disposition: Home, Self-Care Time of Disposition Decision: 14:32 Prescriptions / Home Meds: No Action bupropion HCl 150 mg tablet sustained-release 12 hr 150 mg PO Q12H famotidine 20 mg tablet 20 mg PO DAILY fluticasone propionate 50 mcg/actuation spray,suspension 2 spray INTRANASAL DAILY furosemide 20 mg tablet 20 mg PO DAILY oxycodone 5 mg tablet 5 mg PO BID PRN (Reason: pain) ondansetron HCl 4 mg tablet 4 mg PO Q6H PRN (Reason: nausea and vomiting) potassium chloride 20 mEq tablet,ER particles/crystals 20 meq PO DAILY prednisone 5 mg tablet 5 mg PO .every 48 hours acetaminophen 500 mg tablet 500 mg PO Q6H PRN (Reason: pain) albuterol sulfate 90 mcg/actuation HFA aerosol inhaler 2 inh inhalation Q6H PRN (Reason: shortness of breath or wheezing) Anoro Ellipta 62.5-25 mcg/actuation blister with device 1 inh inhalation DAILY bisacodyl 10 mg suppository 10 mg NV DAILY PRN (Reason: constipation) cholecalciferol (vitamin D3) 50 mcg (2,000 unit) capsule 50 mcg PO DAILY docusate sodium [Colace] 100 mg capsule 100 mg PO BID polysaccharide iron complex [Ferrex 150] 150 mg iron capsule 150 mg PO .every other day Fleet Enema 19-7 gram/118 mL enema 118 ml NV DAILY PRN (Reason: constipation) folic acid 1 mg tablet 1 mg PO DAILY Lactobacillus acidoph-L.bulgar 1 million cell tablet,chewable 1 tab PO TID levothyroxine 75 mcg tablet 75 mcg PO DAILY polyethylene glycol 3350 [Miralax] 17 gram/dose powder 17 g PO .every 48 hours multivitamin Tablet 1 tab PO DAILY sodium chloride 0.65 % aerosol,spray 1 spray intranasal DAILY PRN (Reason: nasal congestion) sulfamethoxazole-trimethoprim 800-160 mg tablet 1 tab PO DAILY Additional Instructions: deep Negro wrap on the area but not too tightly. May apply ice to the area, follow-up to primary care doctor next week Stand Alone Forms: Portal Instructions Referrals: Ishaan Alatorre DO [Primary Care Provider] - 1 week
== END 2023-05-23 15:11 | disposition home or self-care (01) ==
PROVIDERS: Emergency Provider Emergency Medicine Emergency Medical Services; PCP Internal Medicine
DX: S40.021A Contusion of right upper arm, initial encounter (principal); I73.9 Peripheral vascular disease, unspecified; F32.9 Major depressive disorder, single episode, unspecified; K21.9 Gastro-esophageal reflux disease without esophagitis; E07.9 Disorder of thyroid, unspecified; J44.9 Chronic obstructive pulmonary disease, unspecified; F41.9 Anxiety disorder, unspecified; I50.9 Heart failure, unspecified; I11.0 Hypertensive heart disease with heart failure; M06.9 Rheumatoid arthritis, unspecified; Z96.649 Presence of unspecified artificial hip joint; Z87.891 Personal history of nicotine dependence; C18.9 Malignant neoplasm of colon, unspecified; X58.XXXA Exposure to other specified factors, initial encounter
CPT/HCPCS: 93971; 99284

== ENCOUNTER 2023-07-16 13:43 | Outpatient (OUT) | payer MEDICARE, MEDICAID, SELFPAY ==
--- NOTE | 2023-07-16 13:53 | US_ITS ---
Patient Name: CIELO SAHA MR#: [id number] : 1945 Exam Date: 07/16/2023 Ordering Doctor: DR Ishaan Alatorre D.O. RADIOLOGY REPORT PROCEDURE: MM TOMOSYNTHESIS DIAGNOSTIC BI, 07/16/2023, 13:57 US BREAST RT LIMITED, 07/16/2023, 14:23 COMPARISON: None. INDICATIONS: Right axillary tail mass Calculator Name NCI Breast Cancer Risk Assessment Tool 5 Year Breast Cancer Risk 5.40% Lifetime Breast Cancer Risk 9.50% Personal Breast Cancer No Personal Ovarian Cancer No Treatments None Family Cancers Sister with breast cancer at age 30; Sister with breast cancer at age 50. LOCATION: [facility] BREAST COMPOSITION: Almost entirely fatty. FINDINGS: DIAGNOSTIC CATEGORY 4--SUSPICIOUS FOR MALIGNANCY. FINDING DOES NOT EXHIBIT CLASSIC FINDINGS OF BREAST CANCER: RIGHT BREAST: Mammographic views demonstrated 5.8 cm mass with partially circumscribed margins within the posterior upper outer quadrant/axillary tail. Ultrasound evaluation demonstrates a 6.2 x 4.4 x 2.5 cm anechoic cyst with internal septations, some scattered debris, and some areas of slightly irregular wall margins. Cyst aspiration and cytology is recommended to exclude cancer. Patient has strong family history of breast cancer. LEFT BREAST: No significant suspicious finding. RECOMMENDATIONS: ULTRASOUND-GUIDED CYST ASPIRATION: RIGHT BREAST PLEASE NOTE: A NORMAL MAMMOGRAM DOES NOT EXCLUDE THE POSSIBILITY OF BREAST CANCER. A CLINICALLY SUSPICIOUS PALPABLE LUMP SHOULD BE BIOPSIED. Dictated by: Ryan Briscoe M.D. on 07/16/2023 at 14:49 Approved by: Ryan Briscoe M.D. on 07/16/2023 at 14:55
== END 2023-07-16 13:44 | disposition home or self-care (01) ==
LOC: MAMMO 13:45
PROVIDERS: PCP Internal Medicine; Visit Provider Internal Medicine
DX: N63.11 Unspecified lump in the right breast, upper outer quadrant (principal); Z80.3 Family history of malignant neoplasm of breast
CPT/HCPCS: 76642; 77066; G0279

== ENCOUNTER 2023-08-01 13:12 | Day surgery (SDC) | payer MEDICARE, MEDICAID, SELFPAY ==
--- NOTE | 2023-08-01 13:18 | US_ITS ---
Patient Name: CIELO SAHA MR#: [id number] : 1945 Exam Date: 08/01/2023 Ordering Doctor: DR Ishaan Alatorre D.O. RADIOLOGY REPORT PROCEDURE: US BREAST RT LIMITED COMPARISON: US BREAST RT LIMITED, 07/16/2023. INDICATIONS: Right Breast Cyst TECHNIQUE: Breast ultrasound was performed, with evaluation focusing only on specific areas of concern. FINDINGS: DIAGNOSTIC CATEGORY 3--PROBABLY BENIGN FINDING. THE FOLLOWING FINDING(S) HAS A HIGH PROBABILITY OF A BENIGN ETIOLOGY: RIGHT BREAST: Thin, elongated anechoic fluid collection within the right axilla, 2.9 x 2.3 x 0.6 cm which is felt to correspond to the previously seen larger fluid collection (6.2 x 4.4 x 2.5 cm). No appreciable thickened or irregular dow on today's images. I suspect there has been interval rupture and partial collapse of the previously seen complex cyst. Follow-up ultrasound evaluation in 1 month is recommended to document resolution/continued improvement. If cyst refills with fluid and looks suspicious, aspiration/biopsy can be performed at that time. Patient is where of these findings, change of plans, and agrees with current recommendation. RECOMMENDATIONS: SHORT TERM FOLLOW-UP ULTRASOUND RIGHT BREAST IN 1 MONTHS. PLEASE NOTE: A NORMAL ULTRASOUND EXAMINATION DOES NOT EXCLUDE THE POSSIBILITY OF BREAST CANCER. A CLINICALLY SUSPICIOUS PALPABLE LUMP SHOULD BE BIOPSIED. Dictated by: Ryan Briscoe M.D. on 08/01/2023 at 15:00 Approved by: Ryan Briscoe M.D. on 08/01/2023 at 15:04
[2023-08-01 13:30] VITALS: BP 153/94; PULSE 80; O2SAT 93
== END 2023-08-01 14:15 | disposition home or self-care (01) ==
LOC: US 13:13
PROVIDERS: PCP Internal Medicine; Visit Provider Internal Medicine
DX: N60.01 Solitary cyst of right breast (principal); Z53.8 Procedure and treatment not carried out for other reasons
CPT/HCPCS: 76642

== ENCOUNTER 2023-08-18 15:51 | Outpatient (RCR) | payer MEDICARE, MEDICAID, SELFPAY | END 2023-09-30 16:50 | disposition home or self-care (01) | LOC: PT 15:51 | PROVIDERS: PCP Internal Medicine; Visit Provider Internal Medicine | DX: M47.816 Spondylosis without myelopathy or radiculopathy, lumbar region (principal); M16.9 Osteoarthritis of hip, unspecified; M17.9 Osteoarthritis of knee, unspecified | CPT/HCPCS: 97110; 97116; 97162 ==

== ENCOUNTER 2023-09-19 10:20 | Outpatient (OUT) | payer MEDICARE, MEDICAID, SELFPAY ==
--- NOTE | 2023-09-19 10:37 | US_ITS ---
Patient Name: CIELO SAHA MR#: [id number] : 1945 Exam Date: 09/19/2023 Ordering Doctor: DR Ishaan Alatorre D.O. RADIOLOGY REPORT PROCEDURE: US BREAST RT LIMITED COMPARISON: US BREAST RT LIMITED, 08/01/2023. US BREAST RT LIMITED, 07/16/2023. INDICATIONS: Mass Of Upper Outer Quadrant Of Right Breast N63.11 TECHNIQUE: Breast ultrasound was performed, with evaluation focusing only on specific areas of concern. FINDINGS: Right axillary ultrasound demonstrates normal skin, subcutaneous fat and muscle. The previously noted cystic lesion is no longer visualized RECOMMENDATIONS: Interval resolution of previous identified axillary cystic lesion. No follow-up is required PLEASE NOTE: A NORMAL ULTRASOUND EXAMINATION DOES NOT EXCLUDE THE POSSIBILITY OF BREAST CANCER. A CLINICALLY SUSPICIOUS PALPABLE LUMP SHOULD BE BIOPSIED. Dictated by: Frantz De La O MD on 09/19/2023 at 11:10 Approved by: Frantz De La O MD on 09/19/2023 at 11:12
== END 2023-09-19 10:21 | disposition home or self-care (01) ==
LOC: US 10:20
PROVIDERS: PCP Internal Medicine; Visit Provider Internal Medicine
DX: N63.11 Unspecified lump in the right breast, upper outer quadrant (principal); Z51.81 Encounter for therapeutic drug level monitoring
CPT/HCPCS: 36415; 76642; 80204

== ENCOUNTER 2023-12-24 17:57 | Emergency (ER) | payer MEDICARE, MEDICAID, SELFPAY ==
[2023-12-24 18:17] VITALS: BP 140/78; PULSE 94; TEMP 36.6; O2SAT 94; BMI 28.1
--- NOTE | 2023-12-24 18:42 | ED.WOUNDLAC1 ---
HPI - Wound/Laceration General Chief Complaint: Wound/Laceration Stated Complaint: Wound Check Time Seen by Provider: 12/24/23 18:18 Source: patient and family Mode of arrival: Wheelchair Limitations: altered mental status Limitations comment: Dementia History of Present Illness HPI narrative: Patient is a 78-year-old female with a history of dementia, osteomyelitis and abscess of the left hip who presents to the emergency department with her niece for evaluation of wounds to the lower legs. Patient's niece is the primary historian. She is visibly frustrated that they have been referred to the emergency department. Patient has home health come to her home regularly, she was receiving wound care from [facility] for her lower extremity wounds, patient's niece believes that when her primary care provider contacted [facility] for orders for the patient's wounds, they contacted the wrong office and called [facility] which is the patient's regular home health nurse for other complaints. The [facility] nurse came to the home, applied simple dressings to the legs and refer the patient to the ER for for orders . Patient's niece states she does not believe they need to be in the emergency department, patient is already on Augmentin, Bactrim prophylactically. She has an upcoming appointment with a vascular surgeon in 2 weeks to address peripheral vascular disease contributing to the wounds and they were instructed to see a wound care clinic after the vascular appointment. Related Data Home Medications ?Medication ?Instructions ?Recorded ?Confirmed Lactobacillus acidoph-L.bulgaricus 1 tab PO TID 11/02/22 07/29/23 1 million cell chewable tablet albuterol sulfate 90 mcg/actuation 2 inh inhalation Q6H PRN shortness 11/02/22 07/29/23 aerosol inhaler of breath or wheezing bupropion HCl 150 mg tablet,12 hr 150 mg PO Q12H 11/02/22 07/29/23 sustained-release famotidine 20 mg tablet 20 mg PO DAILY 11/02/22 07/29/23 folic acid 1 mg tablet 1 mg PO DAILY 11/02/22 07/29/23 furosemide 20 mg tablet 20 mg PO DAILY 11/02/22 07/29/23 levothyroxine 75 mcg tablet 75 mcg PO DAILY 11/02/22 07/29/23 potassium chloride 20 mEq 20 meq PO DAILY 11/02/22 07/29/23 tablet,extended release(part/cryst) prednisone 5 mg tablet 5 mg PO .every 48 hours PRN RA 11/02/22 07/29/23 umeclidinium 62.5 mcg-vilanterol 1 inh inhalation DAILY PRN sob 11/02/22 07/29/23 25 mcg/actuation powdr for inhalation (Anoro Ellipta) sulfamethoxazole 800 1 tab PO .MWF 05/23/23 07/29/23 mg-trimethoprim 160 mg tablet amoxicillin 500 mg-potassium 1 tab PO BID 07/29/23 07/29/23 clavulanate 125 mg tablet Allergies Allergy/AdvReac Type Severity Reaction Status Date / Time No Known Drug Allergies Allergy Verified 07/29/23 12:41 Review of Systems ROS Constitutional Denies: fever or chills Ears, nose, mouth, and throat Denies: throat pain or nasal congestion Respiratory Denies: shortness of breath Gastrointestinal Denies: nausea or vomiting Integumentary/Breast Reports: sores; Denies: rash, itching or redness Hematologic/Lymphatic Denies: easy bruising or easy bleeding [facility] Medical History (Updated 12/24/23 @ 18:41 by PRIYA Malone) PVD (peripheral vascular disease) ?I73.9 - Peripheral vascular disease, unspecified (ICD-10) Major depression ?F32.9 - Major depressive disorder, single episode, unspecified (ICD-10) Hypertension ?I10 - Essential (primary) hypertension (ICD-10) GERD (gastroesophageal reflux disease) ?K21.9 - Gastro-esophageal reflux disease without esophagitis (ICD-10) Thyroid disease ?E07.9 - Disorder of thyroid, unspecified (ICD-10) COPD (chronic obstructive pulmonary disease) ?J44.9 - Chronic obstructive pulmonary disease, unspecified (ICD-10) Anxiety ?F41.9 - Anxiety disorder, unspecified (ICD-10) Anemia ?D64.9 - Anemia, unspecified (ICD-10) CHF (congestive heart failure) ?I50.9 - Heart failure, unspecified (ICD-10) Encounter for management of wound VAC ?Z46.89 - Encounter for fitting and adjustment of other specified devices (ICD-10) Corynebacterium minutissimum infection ?L08.89 - Other specified local infections of the skin and subcutaneous tissue (ICD-10) Serratia infection ?A49.8 - Other bacterial infections of unspecified site (ICD-10) MSSA (methicillin susceptible Staphylococcus aureus) infection ?A49.01 - Methicillin susceptible Staphylococcus aureus infection, unspecified site (ICD-10) Colon cancer ?C18.9 - Malignant neoplasm of colon, unspecified (ICD-10) Rheumatoid arthritis ?M06.9 - Rheumatoid arthritis, unspecified (ICD-10) Surgical History (Updated 07/29/23 @ 12:45 by Ju Ward) S/P total knee arthroplasty ?Z96.659 - Presence of unspecified artificial knee joint (ICD-10) S/P right rotator cuff repair ?Z98.890 - Other specified postprocedural states (ICD-10) H/O fine needle aspiration with imaging guidance ?Z98.890 - Other specified postprocedural states (ICD-10) History of removal of joint prosthesis of left hip due to infection ?Z98.890 - Other specified postprocedural states (ICD-10) ?Z86.19 - Personal history of other infectious and parasitic diseases (ICD-10) History of total hip arthroplasty ?Z96.649 - Presence of unspecified artificial hip joint (ICD-10) Social History Smoking status: Former smoker Exam Narrative Exam Narrative: Gen.: Awake, alert, in no distress Head: Normocephalic, atraumatic ENT: Moist mucous membranes Respiratory: No respiratory distress Extremities: Multiple well-healed scars over the right lower extremity, left lower extremity is shortened compared to the right. Left lower extremity with a 6 cm wound to the left anterior tibia and right anterior tibia with a 2.5 cm wound anteriorly. No surrounding redness. No active drainage. No pitting edema of the lower extremities. No evidence of secondary cellulitis or red streaking on the lower extremities at this time Psych: Normal mood and affect Neuro: No focal neuro deficit Skin: Warm, dry Constitutional Vital Signs, click to edit/add: Last Vital Signs Temp 97.8 F 12/24/23 18:17 Pulse 94 H 12/24/23 18:17 Resp 18 12/24/23 18:17 BP 140/78 12/24/23 18:17 Pulse Ox 94 L 12/24/23 18:17 O2 Del Method Room Air 12/24/23 18:17 Course Vital Signs Vital signs: Vital Signs Temperature 97.8 F 12/24/23 18:17 Pulse Rate 94 H 12/24/23 18:17 Respiratory Rate 18 12/24/23 18:17 Blood Pressure 140/78 12/24/23 18:17 Pulse Oximetry 94 L 12/24/23 18:17 Oxygen Delivery Method Room Air 12/24/23 18:17 Temperature 97.8 F 12/24/23 18:17 Pulse Rate 94 H 12/24/23 18:17 Respiratory Rate 18 12/24/23 18:17 Blood Pressure 140/78 12/24/23 18:17 Pulse Oximetry 94 L 12/24/23 18:17 Oxygen Delivery Method Room Air 12/24/23 18:17 MDM - Wound/Laceration MDM Narrative Medical decision making narrative: At this time the patient has no emergency need for blood work or admission, she has no evidence of secondary cellulitis. Niece was encouraged to follow-up with wound care locally, explained that there is no reason they cannot see a family law specialist while they are waiting to see vascular surgery. Continue Augmentin and Bactrim. Dry dressings with Negro wrap supplied to the patient's lower extremities and she remains neurovascularly intact. She was encouraged to elevate the legs. Return to the ER if symptoms change or worsen SUPERVISED APC VISIT, PHYSICIAN ATTESTATION: Based on the medical record the care appears appropriate. ? Medical Records Attestation: I reviewed the patient's medical records. Discharge Plan Discharge Stand Alone Forms: Portal Instructions Chief Complaint: Wound/Laceration Clinical Impression: Open wound of both lower extremities Patient Disposition: Home, Self-Care Time of Disposition Decision: 18:41 Condition: Good Prescriptions / Home Meds: No Action amoxicillin-pot clavulanate 500-125 mg tablet 1 tab PO BID bupropion HCl 150 mg tablet sustained-release 12 hr 150 mg PO Q12H famotidine 20 mg tablet 20 mg PO DAILY furosemide 20 mg tablet 20 mg PO DAILY potassium chloride 20 mEq tablet,ER particles/crystals 20 meq PO DAILY prednisone 5 mg tablet 5 mg PO .every 48 hours PRN (Reason: RA) albuterol sulfate 90 mcg/actuation HFA aerosol inhaler 2 inh inhalation Q6H PRN (Reason: shortness of breath or wheezing) Anoro Ellipta 62.5-25 mcg/actuation blister with device 1 inh inhalation DAILY PRN (Reason: sob) folic acid 1 mg tablet 1 mg PO DAILY Lactobacillus acidoph-L.bulgar 1 million cell tablet,chewable 1 tab PO TID levothyroxine 75 mcg tablet 75 mcg PO DAILY sulfamethoxazole-trimethoprim 800-160 mg tablet 1 tab PO .MW Print Language: Armenian Instructions: Acute Wounds (ED) Referrals: Ishaan Alatorre DO [Primary Care Provider] - 1 week Jesse García DPM [Physician] - As soon as possible
== END 2023-12-24 18:51 | disposition home or self-care (01) ==
PROVIDERS: Emergency Provider Student in an Organized Health Care Education/Training Program; PCP Internal Medicine
DX: S81.802A Unspecified open wound, left lower leg, initial encounter (principal); S81.801A Unspecified open wound, right lower leg, initial encounter; X58.XXXA Exposure to other specified factors, initial encounter; Z87.891 Personal history of nicotine dependence
CPT/HCPCS: 99282

== ENCOUNTER 2024-01-02 10:28 | Outpatient (OUT) | payer MEDICARE, MEDICAID, SELFPAY | END 2024-01-02 10:29 | disposition home or self-care (01) | LOC: WC 10:28 | PROVIDERS: PCP Internal Medicine; Visit Provider Podiatrist Foot & Ankle Surgery | DX: I87.333 Chronic venous hypertension (idiopathic) with ulcer and inflammation of bilateral lower extremity (principal); L97.812 Non-pressure chronic ulcer of other part of right lower leg with fat layer exposed; L97.822 Non-pressure chronic ulcer of other part of left lower leg with fat layer exposed | CPT/HCPCS: G0463 ==

== ENCOUNTER 2024-01-02 11:01 | Outpatient (OUT) | payer MEDICARE, MEDICAID, SELFPAY ==
[2024-01-02 11:28] LABS: Basophils Absolute Auto 0.1 10^3/uL (0.0-0.1); Basophils Percent Auto 0.8 % (0.2-2.0); Eosinophils Absolute Auto 0.5 10^3/uL (0.0-0.7); Eosinophils Percent Auto 4.6 % (0.9-7.0); Hematocrit 33.3 % (36.0-48.0); Immature Granulocytes Abs Auto 0.03 10^3/uL (0.00-0.03); Immature Granulocytes Pct Auto 0.3 % (0.0-0.5); Lymphocytes Absolute Auto 1.3 10^3/uL (1.2-3.8); Lymphocytes Percent Auto 13.7 % (20.5-60.0); Mean Corpuscular Hemoglobin 29.4 pg (26.7-34.0); Mean Corpuscular Volume 97.9 fL (81.0-99.0); Mean Platelet Volume 9.1 fL (9.5-13.5); Monocytes Absolute Auto 1.1 10^3/uL (0.3-0.8); Monocytes Percent Auto 11.3 % (1.7-12.0); Neutrophils Absolute Auto 6.7 10^3/uL (1.4-6.5); Neutrophils Percent Auto 69.3 % (43.0-75.0); Platelet Count 446 10^3/uL (150-450); White Blood Count 9.7 10^3/uL (4.0-11.0)
[2024-01-02 11:48] LABS: Erythrocyte Sedimentation Rate 90 mm/hr (<=30)
[2024-01-02 12:50] LABS: Alanine Aminotransferase 16 U/L (14-59); Albumin Globulin Ratio 0.9; Alkaline Phosphatase 119 U/L (46-116); Aspartate Amino Transferase 17 U/L (15-37); Bilirubin Direct 0.1 mg/dL (0.0-0.2); Bilirubin Total 0.7 mg/dL (0.2-1.0); Estimated GFR (African America 40 (>=60); Estimated GFR (Non-African Ame 33 (>=60); Globulin 3.2 g/dL; Total Protein 6.2 g/dL (6.4-8.2)
== END 2024-01-02 11:02 | disposition home or self-care (01) ==
LOC: LAB 11:02
PROVIDERS: PCP Internal Medicine; Visit Provider Internal Medicine Rheumatology
DX: M05.79 Rheumatoid arthritis with rheumatoid factor of multiple sites without organ or systems involvement (principal); Z79.899 Other long term (current) drug therapy
CPT/HCPCS: 36415; 80076; 82565; 85025; 85652

== ENCOUNTER 2024-01-16 10:18 | Outpatient (OUT) | payer MEDICARE, MEDICAID, SELFPAY | END 2024-01-16 10:19 | disposition home or self-care (01) | LOC: WC 10:18 | PROVIDERS: PCP Internal Medicine; Visit Provider Podiatrist Foot & Ankle Surgery | DX: I87.333 Chronic venous hypertension (idiopathic) with ulcer and inflammation of bilateral lower extremity (principal); L97.815 Non-pressure chronic ulcer of other part of right lower leg with muscle involvement without evidence of necrosis; L97.825 Non-pressure chronic ulcer of other part of left lower leg with muscle involvement without evidence of necrosis | CPT/HCPCS: G0463 ==

== ENCOUNTER 2024-02-17 08:59 | Outpatient (OUT) | payer MEDICARE, MEDICAID, SELFPAY ==
--- NOTE | 2024-02-17 09:09 | XR_ITS ---
The [address] [address] Patient Name: CIELO SAHA MRN: [id number] date: 1945 Sex: F Assigned Patient Location: [facility] Current Patient Location: [facility] Accession/Order Number: [id number] Exam Date: 02/17/2024 10:12 Report Date: 02/17/2024 12:56 At the request of: RANGEL CAMARENA Procedure: XR chest 2V PROCEDURE: XR chest 2V DATE: 02/17/2024 9:12 AM CDT COMPARISONS: 11/02/2022 CLINICAL INDICATION: 78 years Female Preop exam FINDINGS: The cardiomediastinal silhouette and pulmonary vasculature are within normal limits. Diffuse coarse increased interstitial markings likely represent mild to moderate chronic lung changes, stable. There is no evidence of pleural effusion or pneumothorax. XR/XR chest 2V IMPRESSION: Chronic lung changes. Stable chest. Electronically authenticated by: EARLENE AYALA Date: 02/17/2024 12:56
--- NOTE | 2024-02-17 09:09 | ECG_ITS ---
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
[2024-02-17 10:15] LABS: Basophils Absolute Auto 0.1 10^3/uL (0.0-0.1); Basophils Percent Auto 0.9 % (0.2-2.0); Eosinophils Absolute Auto 0.6 10^3/uL (0.0-0.7); Eosinophils Percent Auto 5.9 % (0.9-7.0); Hematocrit 32.9 % (36.0-48.0); Hemoglobin 10.4 g/dL (12.0-16.0); Immature Granulocytes Abs Auto 0.07 10^3/uL (0.00-0.03); Immature Granulocytes Pct Auto 0.7 % (0.0-0.5); Lymphocytes Percent Auto 10.1 % (20.5-60.0); Mean Corpuscular HGB Conc 31.6 g/dL (29.9-35.2); Mean Corpuscular Hemoglobin 29.6 pg (26.7-34.0); Mean Corpuscular Volume 93.7 fL (81.0-99.0); Mean Platelet Volume 8.7 fL (9.5-13.5); Monocytes Absolute Auto 0.7 10^3/uL (0.3-0.8); Monocytes Percent Auto 6.9 % (1.7-12.0); Neutrophils Absolute Auto 7.7 10^3/uL (1.4-6.5); Neutrophils Percent Auto 75.5 % (43.0-75.0); Platelet Count 397 10^3/uL (150-450); Red Blood Count 3.51 10^6/uL (4.20-5.40); Red Cell Distribution Width 16.5 % (11.0-15.0); White Blood Count 10.3 10^3/uL (4.0-11.0)
--- NOTE | 2024-02-17 10:15 | P.GSHP_ITS ---
History of Present Illness History of Present Illness Chief complaint: bilateral venous ulcers Narrative: Patient presents for preadmission testing accompanied by her niece/caregiver. The patient reports a long history of open wounds on bilateral lower extremities. The patient states she is having wound care as directed. She denies any new wounds or problems. She states that she does use a walker to move around her living space, but does have fatigue. She denies any chest pain or syncope. Review of Systems ROS Narrative REVIEW OF SYSTEMS: Negative except as stated in HPI, ten or more systems reviewed. Constitutional: No fever, chills, weakness ENT: No sore throat or epistaxis Cardiovascular: No chest pain or palpitations Respiratory: Chronic shortness of breath, no cough or wheezing Musculoskeletal: Chronic joint pain and swelling Gastrointestinal: No abdominal pain, constipation, diarrhea, or vomiting Genitourinary: No dysuria or hematuria Neurological: No numbness, tingling, weakness, or headache Psychiatric: No mood changes PFSH [facility] Medical History (Updated 02/17/24 @ 09:49 by Alexa Wright NP) Iron deficiency anemia ?D50.9 - Iron deficiency anemia, unspecified (ICD-10) Shoulder pain ?M25.519 - Pain in unspecified shoulder (ICD-10) Back pain ?M54.9 - Dorsalgia, unspecified (ICD-10) Arthritis ?M19.90 - Unspecified osteoarthritis, unspecified site (ICD-10) History of blood transfusion ?Z92.89 - Personal history of other medical treatment (ICD-10) Insomnia ?G47.00 - Insomnia, unspecified (ICD-10) COVID-19 ?U07.1 - COVID-19 (ICD-10) Deep vein thrombosis ?I82.409 - Acute embolism and thrombosis of unspecified deep veins of unspe cified lower extremity (ICD-10) Extremity edema ?R60.0 - Localized edema (ICD-10) Hypothyroidism ?E03.9 - Hypothyroidism, unspecified (ICD-10) Venous ulcer of leg ?I83.009 - Varicose veins of unspecified lower extremity with ulcer of unspecified site (ICD-10) ?L97.909 - Non-pressure chronic ulcer of unspecified part of unspecified lower leg with unspecified severity (ICD-10) PVD (peripheral vascular disease) ?I73.9 - Peripheral vascular disease, unspecified (ICD-10) Major depression ?F32.9 - Major depressive disorder, single episode, unspecified (ICD-10) Hypertension ?I10 - Essential (primary) hypertension (ICD-10) GERD (gastroesophageal reflux disease) ?K21.9 - Gastro-esophageal reflux disease without esophagitis (ICD-10) Thyroid disease ?E07.9 - Disorder of thyroid, unspecified (ICD-10) COPD (chronic obstructive pulmonary disease) ?J44.9 - Chronic obstructive pulmonary disease, unspecified (ICD-10) Anxiety ?F41.9 - Anxiety disorder, unspecified (ICD-10) Anemia ?D64.9 - Anemia, unspecified (ICD-10) CHF (congestive heart failure) ?I50.9 - Heart failure, unspecified (ICD-10) Encounter for management of wound VAC ?Z46.89 - Encounter for fitting and adjustment of other specified devices (ICD-10) Corynebacterium minutissimum infection ?L08.89 - Other specified local infections of the skin and subcutaneous tissue (ICD-10) Serratia infection ?A49.8 - Other bacterial infections of unspecified site (ICD-10) MSSA (methicillin susceptible Staphylococcus aureus) infection ?A49.01 - Methicillin susceptible Staphylococcus aureus infection, unspecified site (ICD-10) Colon cancer ?C18.9 - Malignant neoplasm of colon, unspecified (ICD-10) Rheumatoid arthritis ?M06.9 - Rheumatoid arthritis, unspecified (ICD-10) Surgical History (Updated 02/17/24 @ 09:48 by Alexa Wright NP) H/O plastic surgery ?Z98.890 - Other specified postprocedural states (ICD-10) S/P epidural steroid injection ?Z92.241 - Personal history of systemic steroid therapy (ICD-10) History of ear surgery ?Z98.890 - Other specified postprocedural states (ICD-10) History of colectomy ?Z90.49 - Acquired absence of other specified parts of digestive tract (ICD- 10) S/P total knee arthroplasty ?Z96.659 - Presence of unspecified artificial knee joint (ICD-10) S/P right rotator cuff repair ?Z98.890 - Other specified postprocedural states (ICD-10) H/O fine needle aspiration with imaging guidance ?Z98.890 - Other specified postprocedural states (ICD-10) History of removal of joint prosthesis of left hip due to infection ?Z98.890 - Other specified postprocedural states (ICD-10) ?Z86.19 - Personal history of other infectious and parasitic diseases (ICD- 10) History of total hip arthroplasty ?Z96.649 - Presence of unspecified artificial hip joint (ICD-10) Family History (Updated 02/17/24 @ 09:48 by Alexa Wright NP) Other CHF (congestive heart failure) Cancer Dementia Family history of diabetes mellitus Pacemaker Social History (Updated 02/17/24 @ 09:35 by Alexa Wright NP) Within the past year, how often did you have a drink containing alcohol: monthly or less Smoking status: Former smoker Non-prescribed substance use: denies use Highest level of school completed/degree received: high school graduate Meds Home Medications and Allergies Home Medications ?Medication ?Instructions ?Recorded ?Confirmed ?Type Lactobacillus acidoph-L.bulgaricus 1 tab PO TID 11/02/22 02/17/24 History 1 million cell chewable tablet albuterol sulfate 90 mcg/actuation 2 inh inhalation Q6H PRN shortness 11/02/22 02/17/24 History aerosol inhaler of breath or wheezing famotidine 20 mg tablet 20 mg PO DAILY 11/02/22 02/17/24 History folic acid 1 mg tablet 1 mg PO DAILY 11/02/22 02/17/24 History furosemide 20 mg tablet 20 mg PO DAILY 11/02/22 02/17/24 History levothyroxine 75 mcg tablet 75 mcg PO DAILY 11/02/22 02/17/24 History potassium chloride 20 mEq 20 meq PO DAILY 11/02/22 02/17/24 History tablet,extended release(part/cryst) prednisone 5 mg tablet 5 mg PO .every 48 hours PRN RA 11/02/22 02/17/24 History sulfamethoxazole 800 1 tab PO .MWF 05/23/23 02/17/24 History mg-trimethoprim 160 mg tablet amoxicillin 500 mg-potassium 1 tab PO BID 07/29/23 02/17/24 History clavulanate 125 mg tablet aspirin 81 mg tablet,delayed 81 mg PO DAILY 02/17/24 02/17/24 History release (Adult Aspirin Regimen) bupropion HCl 150 mg 24 hr tablet, 150 mg PO QPM 02/17/24 02/17/24 History extended release gabapentin 100 mg capsule 100 mg PO QPM 02/17/24 02/17/24 History methotrexate sodium 2.5 mg tablet 10 mg PO QWEEK 02/17/24 02/17/24 History multivitamin (Daily Multi-Vitamin 1 tab PO DAILY 02/17/24 02/17/24 History tablet) ondansetron HCl 4 mg tablet 4 mg PO DAILY PRN nausea and 02/17/24 02/17/24 History vomiting tramadol 50 mg tablet 50 mg PO BID 02/17/24 02/17/24 History Allergies Allergy/AdvReac Type Severity Reaction Status Date / Time No Known Drug Allergies Allergy Verified 02/17/24 09:19 Exam Narrative Exam Narrative: Constitutional: Awake, alert, comfortable, resting in a wheelchair, chronically ill-appearing, nontoxic, interactive, vital signs as charted Head: Normocephalic, atraumatic Neck: Supple, normal appearance, normal range of motion, no meningeal signs, no lymphadenopathy Respiratory: No respiratory distress, breath sounds diminished throughout Cardiovascular: Regular rate and rhythm, strong and regular heart tones Musculoskeletal: Moves all extremities Skin: Dressings clean dry and intact to bilateral lower extremities Neuro: No neurological deficits, normal sensation Psychiatric: Oriented ?3, normal affect Assessment and Plan Assessment and Plan (1) Venous ulcer of leg: Plan Bilateral leg wound debridements with possible graft application scheduled with Dr. García March 04, 2024.
[2024-02-17 10:55] LABS: Partial Thromboplastin Time 35.5 sec (22.3-36.2); Prothrombin Time 10.6 sec (9.0-11.6)
[2024-02-17 10:59] LABS: BUN Creatinine Ratio 18.5; Carbon Dioxide 24.5 mmol/L (21.0-32.0); Chloride 100 mmol/L (98-107); Estimated GFR (African America 29 (>=60); Estimated GFR (Non-African Ame 24 (>=60); Glucose 97 mg/dL (74-106); Potassium 4.5 mmol/L (3.5-5.1); Sodium 133 mmol/L (136-145)
== END 2024-02-17 09:00 | disposition home or self-care (01) ==
LOC: PST 09:00
PROVIDERS: PCP Internal Medicine; Visit Provider Podiatrist Foot & Ankle Surgery
DX: Z01.812 Encounter for preprocedural laboratory examination (principal); Z01.810 Encounter for preprocedural cardiovascular examination; L97.921 Non-pressure chronic ulcer of unspecified part of left lower leg limited to breakdown of skin; L97.919 Non-pressure chronic ulcer of unspecified part of right lower leg with unspecified severity; J44.9 Chronic obstructive pulmonary disease, unspecified; I11.0 Hypertensive heart disease with heart failure; I50.9 Heart failure, unspecified
CPT/HCPCS: 36415; 71046; 80048; 85025; 85610; 85730; 93005; G0463

== ENCOUNTER 2024-02-26 14:30 | Emergency (ER) | payer MEDICARE, MEDICAID, SELFPAY ==
[2024-02-26] VITALS (37 sets, daily range): BP systolic 81–109; BP diastolic 45–72; PULSE 79–102; TEMP 36.6; O2SAT 93–100; BMI 28.3
--- NOTE | 2024-02-26 14:46 | ECG_ITS ---
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
--- NOTE | 2024-02-26 14:46 | XR_ITS ---
The [address] [address] Patient Name: CIELO SAHA MRN: [id number] date: 1945 Sex: F Assigned Patient Location: ER Current Patient Location: ER Accession/Order Number: [id number] Exam Date: 02/26/2024 15:30 Report Date: 02/26/2024 15:54 At the request of: ZEUS BAUER Procedure: XR chest 1V EXAM: XR chest 1V TECHNIQUE: Single AP view chest HISTORY: weakness COMPARISON: 11/02/2022 FINDINGS: The heart and mediastinum are unremarkable. The lung ng are clear. Degenerative changes are seen of the thoracolumbar spine. Arthritic changes are seen of both shoulders. XR/XR chest 1V IMPRESSION: No acute pulmonary disease. Electronically authenticated by: ERASMO REY Date: 02/26/2024 15:54
--- NOTE | 2024-02-26 14:58 | ED_ITS ---
HPI HPI - General Adult General Chief complaint: Fall Stated complaint: FALL Time Seen by Provider: 02/26/24 14:32 Source: patient Mode of arrival: walk-in Limitations: no limitations History of Present Illness HPI narrative: 78-year-old female presents for weakness and frequent falls. She lives by herself but her niece takes care of her and is here with her today and gives most of the history. The patient has been getting increasingly weak and the niece is concerned that she cannot live by herself at home. She has been starting to look into some [facility] for long-term care. The patient has fallen several times, twice yesterday, but did not injure herself. Her arms are bruised from falling and the patient's appetite has been quite poor. No fever or complaints of headache or neck pain. Related Data Home Medications ?Medication ?Instructions ?Recorded ?Confirmed Lactobacillus acidoph-L.bulgaricus 1 tab PO TID 11/02/22 02/17/24 1 million cell chewable tablet albuterol sulfate 90 mcg/actuation 2 inh inhalation Q6H PRN shortness 11/02/22 02/17/24 aerosol inhaler of breath or wheezing famotidine 20 mg tablet 20 mg PO DAILY 11/02/22 02/17/24 folic acid 1 mg tablet 1 mg PO DAILY 11/02/22 02/17/24 furosemide 20 mg tablet 20 mg PO DAILY 11/02/22 02/17/24 levothyroxine 75 mcg tablet 75 mcg PO DAILY 11/02/22 02/17/24 potassium chloride 20 mEq 20 meq PO DAILY 11/02/22 02/17/24 tablet,extended release(part/cryst) prednisone 5 mg tablet 5 mg PO .every 48 hours PRN RA 11/02/22 02/17/24 sulfamethoxazole 800 1 tab PO .MWF 05/23/23 02/17/24 mg-trimethoprim 160 mg tablet amoxicillin 500 mg-potassium 1 tab PO BID 07/29/23 02/17/24 clavulanate 125 mg tablet aspirin 81 mg tablet,delayed 81 mg PO DAILY 02/17/24 02/17/24 release (Adult Aspirin Regimen) bupropion HCl 150 mg 24 hr tablet, 150 mg PO QPM 02/17/24 02/17/24 extended release gabapentin 100 mg capsule 100 mg PO QPM 02/17/24 02/17/24 methotrexate sodium 2.5 mg tablet 10 mg PO QWEEK 02/17/24 02/17/24 multivitamin (Daily Multi-Vitamin 1 tab PO DAILY 02/17/24 02/17/24 tablet) ondansetron HCl 4 mg tablet 4 mg PO DAILY PRN nausea and 02/17/24 02/17/24 vomiting tramadol 50 mg tablet 50 mg PO BID 02/17/24 02/17/24 Allergies Allergy/AdvReac Type Severity Reaction Status Date / Time No Known Drug Allergies Allergy Verified 02/26/24 14:44 Opioid HPI Opioid Management Most Recent Opioid Data: Last Pain Scale 10 02/26/24 15:19 Last MAR Pain Assessment 02/26/24 15:19 Review of Systems ROS Narrative A ten point review of systems is negative except as noted above. [facility] Medical History (Updated 02/26/24 @ 18:34 by Faustino Gallagher MD) Iron deficiency anemia ?D50.9 - Iron deficiency anemia, unspecified (ICD-10) Shoulder pain ?M25.519 - Pain in unspecified shoulder (ICD-10) Back pain ?M54.9 - Dorsalgia, unspecified (ICD-10) Arthritis ?M19.90 - Unspecified osteoarthritis, unspecified site (ICD-10) History of blood transfusion ?Z92.89 - Personal history of other medical treatment (ICD-10) Insomnia ?G47.00 - Insomnia, unspecified (ICD-10) COVID-19 ?U07.1 - COVID-19 (ICD-10) Deep vein thrombosis ?I82.409 - Acute embolism and thrombosis of unspecified deep veins of unspecified lower extremity (ICD-10) Extremity edema ?R60.0 - Localized edema (ICD-10) Hypothyroidism ?E03.9 - Hypothyroidism, unspecified (ICD-10) Venous ulcer of leg ?I83.009 - Varicose veins of unspecified lower extremity with ulcer of unspecified site (ICD-10) ?L97.909 - Non-pressure chronic ulcer of unspecified part of unspecified lower leg with unspecified severity (ICD-10) PVD (peripheral vascular disease) ?I73.9 - Peripheral vascular disease, unspecified (ICD-10) Major depression ?F32.9 - Major depressive disorder, single episode, unspecified (ICD-10) Hypertension ?I10 - Essential (primary) hypertension (ICD-10) GERD (gastroesophageal reflux disease) ?K21.9 - Gastro-esophageal reflux disease without esophagitis (ICD-10) Thyroid disease ?E07.9 - Disorder of thyroid, unspecified (ICD-10) COPD (chronic obstructive pulmonary disease) ?J44.9 - Chronic obstructive pulmonary disease, unspecified (ICD-10) Anxiety ?F41.9 - Anxiety disorder, unspecified (ICD-10) Anemia ?D64.9 - Anemia, unspecified (ICD-10) CHF (congestive heart failure) ?I50.9 - Heart failure, unspecified (ICD-10) Encounter for management of wound VAC ?Z46.89 - Encounter for fitting and adjustment of other specified devices (ICD-10) Corynebacterium minutissimum infection ?L08.89 - Other specified local infections of the skin and subcutaneous tissue (ICD-10) Serratia infection ?A49.8 - Other bacterial infections of unspecified site (ICD-10) MSSA (methicillin susceptible Staphylococcus aureus) infection ?A49.01 - Methicillin susceptible Staphylococcus aureus infection, unspecified site (ICD-10) Colon cancer ?C18.9 - Malignant neoplasm of colon, unspecified (ICD-10) Rheumatoid arthritis ?M06.9 - Rheumatoid arthritis, unspecified (ICD-10) Surgical History (Updated 02/17/24 @ 09:48 by Alexa Wright NP) H/O plastic surgery ?Z98.890 - Other specified postprocedural states (ICD-10) S/P epidural steroid injection ?Z92.241 - Personal history of systemic steroid therapy (ICD-10) History of ear surgery ?Z98.890 - Other specified postprocedural states (ICD-10) History of colectomy ?Z90.49 - Acquired absence of other specified parts of digestive tract (ICD- 10) S/P total knee arthroplasty ?Z96.659 - Presence of unspecified artificial knee joint (ICD-10) S/P right rotator cuff repair ?Z98.890 - Other specified postprocedural states (ICD-10) H/O fine needle aspiration with imaging guidance ?Z98.890 - Other specified postprocedural states (ICD-10) History of removal of joint prosthesis of left hip due to infection ?Z98.890 - Other specified postprocedural states (ICD-10) ?Z86.19 - Personal history of other infectious and parasitic diseases (ICD- 10) History of total hip arthroplasty ?Z96.649 - Presence of unspecified artificial hip joint (ICD-10) Family History (Updated 02/17/24 @ 09:48 by Alexa Wright NP) Other CHF (congestive heart failure) Cancer Dementia Family history of diabetes mellitus Pacemaker Social History (Updated 02/17/24 @ 09:35 by Alexa Wright NP) Within the past year, how often did you have a drink containing alcohol: monthly or less Smoking status: Former smoker Non-prescribed substance use: denies use Highest level of school completed/degree received: high school graduate Little interest or pleasure in doing things: not at all Feeling down, depressed, or hopeless: not at all Exam Narrative Exam Narrative: Nurses note and vital signs reviewed and patient is not hypoxic. General: The patient approximately her stated age. She appears frail and weak. Skin: Warm, dry, no pallor noted. There is no rash noted. Head: Normocephalic, atraumatic Eye: Normal conjunctiva, no drainage Ears, Nose, Mouth, and Throat: oral mucosa is moist. Nares patent. Cardiovascular: Regular Rate and Rhythm Respiratory: Patient is in no distress, no accessory muscle use, lungs are clear to auscultation, no wheezing, rales or rhonchi Back: non-tender GI: Soft and nontender Musculoskeletal: Numerous bruises on her arms Extremities:, Particularly the arms. She has open wounds on both lower extremities which has been seen by wound care and surgery is planned for March 04. Neurological: Awake and alert Psychiatric: Cooperative Constitutional Vital Signs, click to edit/add: Last Vital Signs Temp 97.8 F 02/26/24 14:34 Pulse 90 02/26/24 17:40 Resp 19 02/26/24 17:40 BP 109/59 02/26/24 17:30 Pulse Ox 97 02/26/24 17:40 O2 Del Method Room Air 02/26/24 14:34 Course Vital Signs Vital signs: Vital Signs Temperature 97.8 F 02/26/24 14:34 Pulse Rate 86 02/26/24 14:34 Respiratory Rate 20 02/26/24 14:34 Blood Pressure 101/71 02/26/24 14:34 Pulse Oximetry 97 02/26/24 14:34 Oxygen Delivery Method Room Air 02/26/24 14:34 Temperature 97.8 F 02/26/24 14:34 Pulse Rate 90 02/26/24 17:40 Respiratory Rate 19 02/26/24 17:40 Blood Pressure 109/59 02/26/24 17:30 Pulse Oximetry 97 02/26/24 17:40 Oxygen Delivery Method Room Air 02/26/24 14:34 Medical Decision Making MDM Narrative Medical decision making narrative: Several significant abnormalities were identified. She has acute kidney injury with a creatinine of just over 4. Hyperkalemia is also present at 7.4 and she has a white count of 54,000 which is new for her. CT scan the abdomen shows pneumatosis. The hyperkalemia was treated with D50 and insulin and she was given IV fluids as well. Her BUN and creatinine were repeated and these did not improve significantly. I spoke to Dr. Davies about this case and he recommends transfer to tertiary care facility. Family and the patient are requesting transfer to [facility]. She has essentially normal vital signs and did not have any complaints of abdominal pain or diarrhea or blood in her stool. I do not suspect sepsis in this patient. Lactic acid is also normal. At the time of this dictation we are pending a callback from the hospitalist. Differential Diagnosis Differential Diagnosis: Acute kidney injury, hyperkalemia, diverticulitis, perforation Lab Data Lab results reviewed: Yes I reviewed the patient's lab results Labs: Lab Results 02/26/24 02/26/24 02/26/24 Range/Units 14:55 16:22 17:02 WBC 54.0 H* (4.0-11.0) 10^3/uL RBC 3.66 L (4.20-5.40) 10^6/uL Hgb 10.9 L (12.0-16.0) g/dL Hct 33.3 L (36.0-48.0) % MCV 91.0 (81.0-99.0) fL MCH 29.8 (26.7-34.0) pg MCHC 32.7 (29.9-35.2) g/dL RDW 17.0 H (11.0-15.0) % Plt Count 479 H (150-450) 10^3/uL MPV 9.3 L (9.5-13.5) fL Seg Neuts % (Manual) 93.0 H (43.0-75.0) Band Neutrophils % 3.0 (0-5) % Lymphocytes % (Manual) 2.0 L (20.5-60.0) % Monocytes % (Manual) 2.0 (1.7-12.0) % Eosinophils % (Manual) 0.0 L (0.9-7.0) % Basophils % (Manual) 0.0 L (0.2-2.0) % Neutrophils # (Manual) 50.22 H (1.4-6.5) 10^3/uL Band Neutrophils # 1.6 H (0.0-0.3) 10^3/uL Lymphocytes # (Manual) 1.08 L (1.20-3.80) 10^3/uL Monocytes # (Manual) 1.08 H (0.30-0.80) 10^3/uL Eosinophils # (Manual) 0.00 (0.00-0.70) 10^3/uL Basophils # (Manual) 0.00 (0.00-0.10) 10^3/uL Sodium 122 L* 123 L* (136-145) mmol/L Potassium 7.4 H* 6.8 H* (3.5-5.1) mmol/L Chloride 93 L 97 L (98-107) mmol/L Carbon Dioxide 18.3 L 16.7 L (21.0-32.0) mmol/L Anion Gap 18.1 16.1 BUN 73.0 H 74.0 H (7.0-18.0) mg/dL Creatinine 4.08 H 3.97 H (0.55-1.02) mg/dL Est GFR ( Amer) 13 L 13 L (>=60 mL/min/1.73m^2) Est GFR (Non-Af Amer) 11 L 11 L (>=60 mL/min/1.73m^2) BUN/Creatinine Ratio 17.9 18.6 Glucose 138 H 114 H (74-106) mg/dL Lactate 1.4 (0.4-2.0) mmol/L Calcium 9.3 8.8 (8.5-10.1) mg/dL Urine Color (YELLOW) Urine Clarity (CLEAR) Urine pH (5.0-9.0) Ur Specific [place] (1.005-1.025) Urine Protein (NEG/TRACE) mg/dL Urine Glucose (UA) (NEGATIVE) mg/dL Urine Ketones (NEGATIVE) mg/dL Urine Occult Blood (NEGATIVE) Urine Nitrite (NEGATIVE) Urine Bilirubin (NEGATIVE) Urine Urobilinogen (0.2-1.0) EU/dL Ur Leukocyte Esterase (NEGATIVE) Urine RBC (0-2) #/HPF Urine WBC (NONE SEEN) #/HPF Ur Squamous Epith Cells (NONE/RARE) #/LPF Ur Transition Epith Cell (NONE SEEN) #/LPF Urine Crystals (None Seen) #/HPF Urine Bacteria (NONE SEEN) #/HPF Urine Casts (NONE SEEN) #/LPF Hyaline Casts Urine Mucus (NONE SEEN) Ur Culture Indicated? 02/26/24 Range/Units 17:30 WBC (4.0-11.0) 10^3/uL RBC (4.20-5.40) 10^6/uL Hgb (12.0-16.0) g/dL Hct (36.0-48.0) % MCV (81.0-99.0) fL MCH (26.7-34.0) pg MCHC (29.9-35.2) g/dL RDW (11.0-15.0) % Plt Count (150-450) 10^3/uL MPV (9.5-13.5) fL Seg Neuts % (Manual) (43.0-75.0) Band Neutrophils % (0-5) % Lymphocytes % (Manual) (20.5-60.0) % Monocytes % (Manual) (1.7-12.0) % Eosinophils % (Manual) (0.9-7.0) % Basophils % (Manual) (0.2-2.0) % Neutrophils # (Manual) (1.4-6.5) 10^3/uL Band Neutrophils # (0.0-0.3) 10^3/uL Lymphocytes # (Manual) (1.20-3.80) 10^3/uL Monocytes # (Manual) (0.30-0.80) 10^3/uL Eosinophils # (Manual) (0.00-0.70) 10^3/uL Basophils # (Manual) (0.00-0.10) 10^3/uL Sodium (136-145) mmol/L Potassium (3.5-5.1) mmol/L Chloride (98-107) mmol/L Carbon Dioxide (21.0-32.0) mmol/L Anion Gap BUN (7.0-18.0) mg/dL Creatinine (0.55-1.02) mg/dL Est GFR ( Amer) (>=60 mL/min/1.73m^2) Est GFR (Non-Af Amer) (>=60 mL/min/1.73m^2) BUN/Creatinine Ratio Glucose (74-106) mg/dL Lactate (0.4-2.0) mmol/L Calcium (8.5-10.1) mg/dL Urine Color Yellow (YELLOW) Urine Clarity Clear (CLEAR) Urine pH 5.5 (5.0-9.0) Ur Specific [place] 1.020 (1.005-1.025) Urine Protein Negative (NEG/TRACE) mg/dL Urine Glucose (UA) Negative (NEGATIVE) mg/dL Urine Ketones Negative (NEGATIVE) mg/dL Urine Occult Blood Negative (NEGATIVE) Urine Nitrite Negative (NEGATIVE) Urine Bilirubin Negative (NEGATIVE) Urine Urobilinogen 0.2 (0.2-1.0) EU/dL Ur Leukocyte Esterase Negative (NEGATIVE) Urine RBC 2-5 A (0-2) #/HPF Urine WBC 2-5 A (NONE SEEN) #/HPF Ur Squamous Epith Cells Few A (NONE/RARE) #/LPF Ur Transition Epith Cell Rare A (NONE SEEN) #/LPF Urine Crystals None seen (None Seen) #/HPF Urine Bacteria Moderate A (NONE SEEN) #/HPF Urine Casts Seen A (NONE SEEN) #/LPF Hyaline Casts Few Urine Mucus Moderate A (NONE SEEN) Ur Culture Indicated? Yes Imaging Data Chest x-ray: Radiologist's impression: ITS Impressions Chest X-Ray 02/26/24 14:46 IMPRESSION: No acute pulmonary disease. Electronically authenticated by: ERASMO REY Date: 02/26/2024 15:54 Abdomen/Pelvis CT 02/26/24 15:44 IMPRESSION: 1. Pneumatosis involving the wall of the mid-sigmoid colon. No evidence of abscess. 2. Diverticulosis without radiographic evidence of diverticulitis. 3. Large volume of fluid surrounding the left hip joint which appears similar to 11/02/2022. There has been prior removal of the left hip arthroplasty. Chronic deformity of the left acetabulum. Possibility of underlying septic arthritis is not excluded. 4. Severe degenerative change of the right hip joint. Advanced degenerative changes involving the lower thoracic and the lumbar spine. 5. Small sliding-type hiatal hernia. 6. Subcentimeter nonobstructing left renal calculi. No ureteral calculi. 7. Fat-containing supraumbilical ventral abdominal wall hernia. Electronically authenticated by: MARION VERDE Date: 02/26/2024 18:06 ECG Data Attestation: I personally reviewed and interpreted this ECG as follows: (EKG on my interpretation shows sinus rhythm with incomplete right bundle branch block and rate of 52.) Critical Care Time Critical Care Time Critical Care Time: Yes Total Critical Care Time: 60 Attestation: Due to the high probability of sudden and clinically significant deterioration in the patient's condition he/she required the highest level of my preparedness to intervene urgently I provided critical care time including documentation time, medication orders and management, reevaluation, vital sign assessment, ordering and reviewing of lab tests, ordering and reviewing of x-ray studies, and admission orders. Aggregate critical care time is 60 minutes including only time during which I was engaged in work directly related to his/her care and did not include time spent treating other patients simultaneously. Discharge Plan Discharge Chief Complaint: Fall Clinical Impression: Acute kidney injury, Leukocytosis, Pneumatosis coli, Hyperkalemia Patient Disposition: [facility] Time of Disposition Decision: 18:34 Discharge Location: [facility] Condition: Fair Mode of Transportation: EMS
[2024-02-26 15:05] LABS: Hematocrit 33.3 % (36.0-48.0); Hemoglobin 10.9 g/dL (12.0-16.0); Mean Corpuscular HGB Conc 32.7 g/dL (29.9-35.2); Mean Corpuscular Hemoglobin 29.8 pg (26.7-34.0); Mean Platelet Volume 9.3 fL (9.5-13.5); Platelet Count 479 10^3/uL (150-450); Red Blood Count 3.66 10^6/uL (4.20-5.40)
[2024-02-26 15:19] LABS: Anion Gap 18.1; BUN Creatinine Ratio 17.9; Calcium 9.3 mg/dL (8.5-10.1); Carbon Dioxide 18.3 mmol/L (21.0-32.0); Chloride 93 mmol/L (98-107); Estimated GFR (African America 13 (>=60 mL/min/1.73m^2); Estimated GFR (Non-African Ame 11 (>=60 mL/min/1.73m^2); Glucose 138 mg/dL (74-106)
[2024-02-26] MEDS: MORPHINE SULFATE 2 MG/ML SYRINGE IV ×2 (15:19→17:27)
[2024-02-26] MEDS: 0.9 % SODIUM CHLORIDE 1,000 ML 200 ML IV (15:20)
[2024-02-26] MEDS: ADACEL DIPH,PERTUSS(ACELL),TET VAC/PF 0.5 ML ADULT SYRINGE IM (15:22)
[2024-02-26 15:30] LABS: Sodium 122 mmol/L (136-145)
[2024-02-26 15:31] LABS: Potassium 7.4 mmol/L (3.5-5.1)
[2024-02-26 15:42] LABS: Band Neutrophils Absolute 1.6 10^3/uL (0.0-0.3); Segmented Neut Absolute Manual 50.22 10^3/uL (1.4-6.5)
[2024-02-26 15:43] LABS: Lymphocytes Absolute Manual 1.08 10^3/uL (1.20-3.80); Monocytes Absolute Manual 1.08 10^3/uL (0.30-0.80)
--- NOTE | 2024-02-26 15:44 | CT_ITS ---
The [address] [address] Patient Name: CIELO SAHA MRN: [id number] date: 1945 Sex: F Assigned Patient Location: ER Current Patient Location: ER Accession/Order Number: [id number] Exam Date: 02/26/2024 16:35 Report Date: 02/26/2024 18:06 At the request of: ZEUS BAUER Procedure: CT abdomen pelvis wo con EXAM: CT abdomen pelvis wo con HISTORY: Acute kidney injury, WBC 54,000 COMPARISON: 08/02/2019. TECHNIQUE: Unenhanced helical acquisition obtained through the abdomen and the pelvis. FINDINGS: Severe calcifications of the partially visualized coronary arteries. Small sliding-type hiatal hernia. Mild bibasilar pulmonary fibrosis. The pleural spaces are clear. Old healed posterior left rib fractures. Stable 1 cm cyst within the caudate lobe. Focal fatty infiltration adjacent to the falciform ligament. Unremarkable gallbladder. No significant biliary ductal dilatation. Allowing for the lack of intravenous contrast, the spleen, pancreas and the adrenal glands are unremarkable. Vascular calcifications within the right renal sinus. Nonobstructing left renal calculi, the largest within the inferior left kidney measuring 8 mm. No ureteral calculi are identified. A 6 cm supraumbilical fat-containing abdominal wall hernia. Prior right colonic resection. Diverticulosis without radiographic evidence of diverticulitis. Pneumatosis of the mid-sigmoid colon. No evidence of abscess or ascites. Sims catheter within decompressed urinary bladder. Deformity of the left acetabulum which is unchanged as compared to prior CT left hip study 11/02/2022 and prior surgical resection of the left femoral head with prior removal of left hip arthroplasty. Large volume of surrounding fluid. Severe multilevel degenerative changes throughout the visualized lower thoracic as well as the lumbar spine. CT/CT abdomen pelvis wo con IMPRESSION: 1. Pneumatosis involving the wall of the mid-sigmoid colon. No evidence of abscess. 2. Diverticulosis without radiographic evidence of diverticulitis. 3. Large volume of fluid surrounding the left hip joint which appears similar to 11/02/2022. There has been prior removal of the left hip arthroplasty. Chronic deformity of the left acetabulum. Possibility of underlying septic arthritis is not excluded. 4. Severe degenerative change of the right hip joint. Advanced degenerative changes involving the lower thoracic and the lumbar spine. 5. Small sliding-type hiatal hernia. 6. Subcentimeter nonobstructing left renal calculi. No ureteral calculi. 7. Fat-containing supraumbilical ventral abdominal wall hernia. Electronically authenticated by: MARION VERDE Date: 02/26/2024 18:06
[2024-02-26] MEDS: DEXTROSE 50 %-WATER 25 GM/50 ML SYRINGE IV (16:14)
[2024-02-26] MEDS: INSULIN REGULAR, HUMAN (100 UNIT/ML) 10 ML MDV 10 UNIT IV (16:14)
[2024-02-26 16:51] LABS: Lactate/Lactic Acid 1.4 mmol/L (0.4-2.0)
[2024-02-26] MEDS: 0.9 % SODIUM CHLORIDE 1,000 ML 1000 ML IV (17:27)
[2024-02-26 17:29] LABS: Anion Gap 16.1; BUN Creatinine Ratio 18.6; Calcium 8.8 mg/dL (8.5-10.1); Carbon Dioxide 16.7 mmol/L (21.0-32.0); Chloride 97 mmol/L (98-107); Estimated GFR (African America 13 (>=60 mL/min/1.73m^2); Estimated GFR (Non-African Ame 11 (>=60 mL/min/1.73m^2); Glucose 114 mg/dL (74-106)
[2024-02-26 17:38] LABS: Potassium 6.8 mmol/L (3.5-5.1); Sodium 123 mmol/L (136-145)
[2024-02-26 17:46] LABS: Bilirubin Urine NEGATIVE (NEGATIVE); Blood Urine NEGATIVE (NEGATIVE); Clarity Urine CLEAR (CLEAR); Color Urine YELLOW (YELLOW); Glucose Urine UA NEGATIVE (NEGATIVE); Ketones Urine NEGATIVE (NEGATIVE); Leukocyte Esterase Urine NEGATIVE (NEGATIVE); Nitrite Urine NEGATIVE (NEGATIVE); Protein Urine NEGATIVE (NEG/TRACE); Urobilinogen Urine 0.2 EU/dL (0.2-1.0); pH Urine 5.5 (5.0-9.0)
[2024-02-26] MEDS: PIPERACILLIN SODIUM/TAZOBACTAM 3.375 GM in 0.9 % SODIUM CHLORIDE 50 ML IV (17:47)
[2024-02-26 18:15] LABS: Bacteria Urine MODERATE #/HPF (NONE SEEN); Cast Seen? SEEN #/LPF (NONE SEEN); Crystals Seen? None Seen #/HPF (None Seen); Mucus Urine MODERATE (NONE SEEN); Squamous Epithelial Cell Urine FEW #/LPF (NONE/RARE); Transitional Epi Cells Urine RARE #/LPF (NONE SEEN)
[2024-02-26 18:16] LABS: Hyaline Casts Urine FEW; Urine Culture Indicated YES
[2024-02-26] MEDS: VANCOMYCIN HCL 750 MG in 0.9 % SODIUM CHLORIDE 250 ML 250 MG IV (18:30)
--- NOTE | 2024-02-26 18:45 | PC.NURSE ---
pt resting in bed peacefully at this time. ATBs and IVF remain running. VS WNL.
[2024-02-26] MEDS: SODIUM POLYSTYRENE SULFON 15 GM/60 ML ORAL.SUSP KAYEXALATE 30 GM PO (19:34)
== END 2024-02-26 21:06 | disposition short-term general hospital (02) ==
PROVIDERS: Emergency Medicine; Emergency Provider Emergency Medicine; PCP Internal Medicine
DX: N17.9 Acute kidney failure, unspecified (principal); E87.5 Hyperkalemia; D72.829 Elevated white blood cell count, unspecified; K63.89 Other specified diseases of intestine; S81.802A Unspecified open wound, left lower leg, initial encounter; S81.801A Unspecified open wound, right lower leg, initial encounter; Z87.891 Personal history of nicotine dependence; Z91.81 History of falling; Z23 Encounter for immunization
CPT/HCPCS: 36415; 51702; 71045; 74176; 80048; 81001; 83605; 85007; 85027; 87040; 87086; 90471; 90715; 93005; 96365; 96367; 96375; 96376; 99285; J1817; J2270; J2543; J3370